=== PATIENT | male | born 1960 | race Caucasian/White ===

== ENCOUNTER 2017-06-30 18:46 | Emergency (ER) | payer BC ==
[~2017-06-30] VITALS: Ht 175.3 cm; Wt 62.3 kg
[~2017-06-30 18:46] MED LIST: HYDR-600 PO
[2017-06-30 18:50] VITALS: TEMP 36.6; Ht 175.3 cm; Wt 62.3 kg
--- NOTE | 2017-06-30 19:34 | EMERGENCY ROOM VISIT NOTE ---
History Report prepared by Marcella: Kendall Thomas Under the Supervision of: Dr. Alex Penny D.O. First contact with patient: 18:53 Chief Complaint: MENTAL HEALTH EVALUATION Stated Complaint: SUICIDAL THOUGHTS History of Present Illness The patient is a 57 year old male who presents to the Emergency Room with complaints of intermittent depressive thoughts for three months. Per , the patient has not been able to take his lunch breaks at work and has continuously lost weight for the past few months. The patient states that his work load at work has become too much to handle and he is no longer interested in doing anything. Per , the patient told her that he was going to take her nerve medication to . The patient denies wanting to harm himself. He denies any fever, nausea, vomiting, or headaches. He has not been admitted or seen for these symptoms in the past. He takes Hydrocodone for chronic back and knee pain. He denies any history of thyroid issues. He notes his father committed suicide last year via a gunshot wound to the head. He normally drinks alcohol every day, though he states that he has not had a drink for two days. He denies any history of blackouts from drinking alcohol. He has never informed his PCP for his depressive thoughts. Source of History: patient, spouse/significant other Onset: three months Position: other (global ) Quality: other (depressive thoughts) Timing: intermittent Associated Symptoms: No fevers, No headache, No nausea, No vomiting Note: He notes weight loss. He denies any self-harm. Review of Systems See HPI for pertinent positives & negatives. A total of 10 systems reviewed and were otherwise negative. Past Medical & Surgical Medical Problems: (1) No Known Active Medical Problems Family History Cancer Social History Smoking Status: Current Every Day Smoker (1 ppd) Alcohol Use: heavy (several every day) Drug Use: none Marital Status: Housing Status: lives with family Occupation Status: employed Current/Historical Medications Scheduled PRN Hydrocodone/Acetaminophen 10MG/325MG ([place] 10MG/325MG), 1 TAB PO Q6 PRN for Pain Allergies Coded Allergies: No Known Allergies (Unverified , NONE, 06/30/17) Physical Exam Vital Signs Date Time Temp Pulse Resp B/P (MAP) Pulse Ox O2 Delivery O2 Flow Rate FiO2 07/01/17 14:18 80 18 117/72 97 Room Air 07/01/17 07:15 55 16 116/68 99 Room Air 06/30/17 18:50 36.6 95 16 125/85 98 Room Air Physical Exam GENERAL: Patient is awake, alert, and in no acute distress. Patient is non- anxious appearing EYES: The conjunctivae are clear. The pupils are round and reactive. EARS, NOSE, MOUTH AND THROAT: The nose is without any evidence of any deformity. Mucous membranes are moist tongue is midline NECK: The neck is nontender and supple. RESPIRATORY: Normal respiratory effort is noted there is no evidence of wheezing rhonchi or rales CARDIOVASCULAR: Regular rate and rhythm noted there no murmurs rubs or gallops normal S1 normal S2 GASTROINTESTINAL: The abdomen is soft. Bowel sounds are present in all quadrants. Abdomen is nontender MUSCULOSKELETAL/EXTREMITIES: There is no evidence of gross deformity full range of motion is noted in the hips and shoulders SKIN: There is no obvious evidence of any rash. There are no petechiae, pallor or cyanosis noted. NEUROLOGIC: Patient is awake alert and oriented x3 strength is symmetric patellar reflexes are 2+ bilaterally PSYCH: Affect was flat. Patient makes poor eye contact. Denies active SI or HI at this time. Medical Decision & Procedures Laboratory Results 06/30/17 19:22 Red Blood Count 4.79, Mean Corpuscular Volume 92.1, Mean Corpuscular Hemoglobin 31.3, Mean Corpuscular Hemoglobin Concent 34.0, Mean Platelet Volume 9.5, Neutrophils (%) (Auto) 71.0, Lymphocytes (%) (Auto) 21.4, Monocytes (%) (Auto) 6.8, Eosinophils (%) (Auto) 0.6, Basophils (%) (Auto) 0.0, Neutrophils # (Auto) 3.75, Lymphocytes # (Auto) 1.13, Monocytes # (Auto) 0.36, Eosinophils # (Auto) 0.03, Basophils # (Auto) 0.00 06/30/17 19:22 Test 06/30/17 19:22 06/30/17 19:58 White Blood Count 5.28 K/uL (4.8-10.8) Red Blood Count 4.79 M/uL (4.7-6.1) Hemoglobin 15.0 g/dL (14.0-18.0) Hematocrit 44.1 % (42-52) Mean Corpuscular Volume 92.1 fL (80-100) Mean Corpuscular Hemoglobin 31.3 pg (25-34) Mean Corpuscular Hemoglobin Concent 34.0 g/dl (32-36) Platelet Count 201 K/uL (130-400) Mean Platelet Volume 9.5 fL (7.4-10.4) Neutrophils (%) (Auto) 71.0 % Lymphocytes (%) (Auto) 21.4 % Monocytes (%) (Auto) 6.8 % Eosinophils (%) (Auto) 0.6 % Basophils (%) (Auto) 0.0 % Neutrophils # (Auto) 3.75 K/uL (1.4-6.5) Lymphocytes # (Auto) 1.13 K/uL (1.2-3.4) Monocytes # (Auto) 0.36 K/uL (0.11-0.59) Eosinophils # (Auto) 0.03 K/uL (0-0.5) Basophils # (Auto) 0.00 K/uL (0-0.2) RDW Standard Deviation 44.7 fL (36.4-46.3) RDW Coefficient of Variation 13.2 % (11.5-14.5) Immature Granulocyte % (Auto) 0.2 % Immature Granulocyte # (Auto) 0.01 K/uL (0.00-0.02) Anion Gap 6.0 mmol/L (3-11) Est Creatinine Clear Calc Drug Dose 76.2 ml/min Estimated GFR () 105.1 Estimated GFR (Non- 90.7 BUN/Creatinine Ratio 21.5 (10-20) Calcium Level 8.8 mg/dl (8.5-10.1) Magnesium Level 2.2 mg/dl (1.8-2.4) Total Bilirubin 0.5 mg/dl (0.2-1) Direct Bilirubin 0.1 mg/dl (0-0.2) Aspartate Amino Transf (AST/SGOT) 20 U/L (15-37) Alanine Aminotransferase (ALT/SGPT) 30 U/L (12-78) Alkaline Phosphatase 43 U/L (45-117) Total Protein 7.1 gm/dl (6.4-8.2) Albumin 3.6 gm/dl (3.4-5.0) Thyroid Stimulating Hormone (TSH) 0.855 uIu/ml (0.300-4.500) Free Thyroxine 0.72 ng/dl (0.80-1.60) Ethyl Alcohol mg/dL < 3.0 mg/dl (0-3) Urine Color DK YELLOW Urine Appearance CLOUDY (CLEAR) Urine pH 5.0 (4.5-7.5) Urine Specific [place] 1.038 (1.000-1.030) Urine Protein 1+ (NEG) Urine Glucose (UA) NEG (NEG) Urine Ketones TRACE (NEG) Urine Occult Blood NEG (NEG) Urine Nitrite NEG (NEG) Urine Bilirubin NEG (NEG) Urine Urobilinogen NEG (NEG) Urine Leukocyte Esterase NEG (NEG) Urine WBC (Auto) >30 /hpf (0-5) Urine RBC (Auto) 0-4 /hpf (0-4) Urine Hyaline Casts (Auto) 10-30 /lpf (0-5) Urine Epithelial Cells (Auto) 0-5 /lpf (0-5) Urine Bacteria (Auto) 1+ (NEG) Urine Mucus PRESENT (NONE PRSENT) Urine Sperm (Auto) PRESENT (NOT PRESENT) Urine Opiates Screen POS (NEG) Urine Methadone, Qualitative NEG (NEG) Urine Barbiturates NEG (NEG) Urine Phencyclidine (PCP) Level NEG (NEG) Ur Amphetamine/Methamphetamine NEG (NEG) MDMA (Ecstasy) Screen NEG (NEG) Urine Benzodiazepines Screen POS (NEG) Urine Cocaine Metabolite NEG (NEG) Urine Marijuana (THC) NEG (NEG) Laboratory results per my review. Medications Administered Medications (Trade) Dose Ordered Sig/Yo Route Start Time Stop Time Status Last Admin Dose Admin Acetaminophen/ Hydrocodone Bitart ([place] 10/325 Tab) 1 tab ONE ONCE PO 07/01/17 07:45 07/01/17 07:46 DC 07/01/17 07:55 1 TAB Hydroxyzine HCl (Vistaril Tab) 50 mg NOW STAT PO 07/01/17 13:50 07/01/17 13:51 DC 07/01/17 14:03 50 MG ED Course 1858: The patient was evaluated in room A6. A complete history and physical examination were performed. The patient is voluntary. 2307: I spoke with KEKE Purdynational stormwater leader Returning Officer. Bed search postponed until morning. The patient is signed out to Dr. Choi. 2308: I reassessed the patient at this time. I discussed the results and treatment plan with the patient. I answered all pertaining questions that he had. He expressed understanding and verbalized agreement. The patient will be further evaluated. Medical Decision Prior records/ancillary studies reviewed. Triage Nursing notes reviewed. The patient's history was concerning for possible psychiatric disturbance. Differential diagnosis: Etiologies such as mood disorder, infection, hypoglycemia, electrolyte abnormalities, cardiac sources, intracerebral event, toxicologic, neurologic, as well as others were entertained. The patient is a 57-year-old male who presented to the emergency department for an evaluation of depression and anxiety. The patient has had worsening symptoms recently. His symptoms appear to be worsening especially because of work. The patient was medically cleared in the emergency department. He was evaluated by the mental health shoe caser. He was felt to be a good candidate for inpatient management. At this time a bed search is underway. The patient was signed out to the evening physician. Please see his note for continuation of care and final disposition. Medication Reconcilliation Current Medication List: was personally reviewed by me Blood Pressure Screening Patient's blood pressure: Normal blood pressure Impression Primary Impression: Depression Additional Impression: Suicidal ideation Scribe Attestation The scribe's documentation has been prepared under my direction and personally reviewed by me in its entirety. I confirm that the note above accurately reflects all work, treatment, procedures, and medical decision making performed by me. Departure Information Dispostion Still a Patient Referrals Jose Antonio Yates M.D. (PCP) Patient Instructions My [facility] Problem Qualifiers Primary Impression: Depression Depression Type: unspecified Qualified Codes: F32.9 - Major depressive disorder, single episode, unspecified
[2017-06-30 19:39] LABS: EOS % 0.6 %; EOS ABS # 0.03 K/uL (0-0.5); HEMATOCRIT 44.1 % (42-52); IG# 0.01 K/uL (0.00-0.02); LYMPH % 21.4 %; LYMPH ABS # 1.13 K/uL (1.2-3.4); MEAN CELL VOLUME 92.1 fL (80-100); MEAN CORPUSCULAR HEMOGLOBIN 31.3 pg (25-34); MEAN PLATELET VOLUME 9.5 fL (7.4-10.4); MONO % 6.8 %; MONO ABS # 0.36 K/uL (0.11-0.59); NEUT ABS # 3.75 K/uL (1.4-6.5); PLATELET COUNT 201 K/uL (130-400); RED CELL DISTRIBUTION WIDTH CV 13.2 % (11.5-14.5); RED CELL DISTRIBUTION WIDTH SD 44.7 fL (36.4-46.3); WHITE BLOOD COUNT 5.28 K/uL (4.8-10.8)
[2017-06-30 19:59] LABS: ALBUMIN 3.6 gm/dl (3.4-5.0); CALCIUM 8.8 mg/dl (8.5-10.1); CREATININE 0.92 mg/dl (0.60-1.40)
[2017-06-30 20:07] LABS: TOTAL PROTEIN 7.1 gm/dl (6.4-8.2)
[2017-06-30] MEDS ORDERED: HYDR-4079 PO (20:08)
--- NOTE | 2017-07-01 02:02 | EMERGENCY ROOM VISIT NOTE ---
ED Visit Note First contact with patient: 00:47 The patient was taken in signout from Dr. Penny at the change of shift. Please see that note for details. The patient was pending bed placement. The patient rested quietly overnight. There were no issues. His case was signed out to Dr. Tafoya at the change of shift.
[2017-07-01] MEDS ORDERED: HYDROCODONE/ACETAMI 10/325 TAB PO ONE (07:45)
[2017-07-01] MEDS ORDERED: hydrOXYzine HCL 25 MG TAB PO STA (13:50)
[2017-07-01 14:18] VITALS: BP 117/72; PULSE 80; O2SAT 97
--- NOTE | 2017-07-01 14:21 | EMERGENCY ROOM VISIT NOTE ---
ED Visit Note First contact with patient: 06:29 Patient was signed out to me medically stable from Dr. Choi. He is resting comfortably in the ER on reevaluation. He was accepted and transferred to [place] for an additional psychiatric workup.
== END 2017-07-01 14:36 ==
LOC: C.EDB 18:47 → C.EDA 07-01 14:36
DX: F32.9 Major depressive disorder, single episode, unspecified (principal); R45.851 Suicidal ideations; M54.9 Dorsalgia, unspecified; M25.569 Pain in unspecified knee; G89.29 Other chronic pain; F17.210 Nicotine dependence, cigarettes, uncomplicated; F10.10 Alcohol abuse, uncomplicated

== ENCOUNTER 2019-11-05 19:21 | Inpatient (IN) ==
[2019-11-05 19:58] LABS: Appearance Urine Clear (Clear); Bilirubin Urine Negative (Negative); Blood Urine Negative (Negative); Color Urine Yellow; Glucose Urine UA Negative (Negative); Ketones Urine Negative (Negative); Leukocyte Esterase Urine Negative (Negative); Nitrite Urine Negative (Negative); Protein Urine Negative (Negative); Specific Gravity Urine 1.014 (1.000-1.030); Urobilinogen Urine Negative (Negative)
--- NOTE | 2019-11-05 20:05 | Emergency Department Note ---
History of Present Illness General Chief complaint: Altered Mental Status Stated complaint: AMS Time Seen by Provider: 11/05/19 19:40 History of Present Illness Provider complaint: Altered mental status 59-year-old male presents emergency department for altered mental status. Patient was brought in by EMS because he was found in his car "staring off into space". Patient states he was not staring off into space in his car, he states he was lying in the middle of the road. Patient denies any suicidal or homicidal ideation. He states he was lying in the middle of the road "for the hell of it" he denies any pain or problems at this time. No fevers. No loss of taste or smell. Home Medications Home Medications Medication Instructions Recorded Confirmed Type aripiprazole 15 mg PO DAILY 10/10/19 11/05/19 History diphenhydramine HCl 50 mg DAILY PRN 10/10/19 11/05/19 History duloxetine 60 mg PO DAILY 10/10/19 11/05/19 History lamotrigine 100 mg PO DAILY 10/10/19 11/05/19 History Allergies Allergy/AdvReac Type Severity Reaction Status Date / Time No Known Allergies Allergy NONE Verified 11/05/19 20:20 Past Med/Surg History Medical History Arthritis (Chronic) Depression (Inactive) Surgical History H/O knee surgery Family History Other Family history non-contributory Social History Preferred Language: Montenegrin marital status: Current Living Situation: Spouse current occupational status: employed Feels Safe at Home: Yes Smoking Status: Former smoker Tobacco Type: cigarettes ; Review of Systems A total of 10 systems reviewed and were otherwise negative Physical Exam Vital Signs Vital Signs - 24 hr 11/05/19 19:28 11/05/19 19:30 11/05/19 20:28 Temperature 36.9 C Temperature Source Oral Pulse Rate 56 L 59 L 61 Pulse Rate from SpO2 Sensor 58 L 61 Respiratory Rate 19 18 20 Respiratory Effort / Characteristics Non-Labored Spontaneous Respiratory Depth Normal Blood Pressure 126/90 126/89 147/85 H Blood Pressure Mean 102 102 97 Pulse Oximetry 98 98 100 Oxygen Delivery Method Room Air Sepsis Recent Fever Within 48 Hours No Sepsis Action Taken by Nursing No Action Required 11/05/19 21:01 11/05/19 21:30 Temperature Temperature Source Pulse Rate 51 L 52 L Pulse Rate from SpO2 Sensor 51 L 53 L Respiratory Rate 15 19 Respiratory Effort / Characteristics Respiratory Depth Blood Pressure 112/71 110/70 Blood Pressure Mean 80 79 Pulse Oximetry 96 97 Oxygen Delivery Method Sepsis Recent Fever Within 48 Hours Sepsis Action Taken by Nursing Physical Exam GENERAL: He is oriented to person, place, and time. He appears well-developed and well-nourished. He does not appear distressed. HENT: Exam performed. - Head: Normocephalic and atraumatic. - Right Ear: External ear normal. No mastoid tenderness. - Left Ear: External ear normal. No mastoid tenderness. - Mouth/Throat: The oropharynx is clear and moist. No trismus in the jaw. No dental abscesses or uvula swelling. No oropharyngeal exudate or tonsillar abscesses. EYES: Conjunctivae and EOM are normal. Pupils are equal, round, and reactive to light. Right eye exhibits no discharge. Left eye exhibits no discharge. No scleral icterus. NECK: Normal range of motion. Neck supple. No JVD present. No spinous process tenderness present. No carotid bruit present. No rigidity. No tracheal deviation and normal range of motion present. No Brudzinski's sign and no Kernig's sign noted. CV: Normal rate, regular rhythm, normal heart sounds and intact distal pulses. There is no peripheral edema. Palpable radial pulses bue. PULM/CHEST: Effort normal and breath sounds normal. No respiratory distress. No stridor. He has no wheezes. He has no rales. - Chest Wall: He exhibits no tenderness. ABD: The abdomen is soft. Bowel sounds are normal. He has no distension. No mass is present. There is no tenderness. There is no rebound, no guarding, no Ramírez's sign and no tenderness at McBurney's point. Rovsig negative. MUSC/SKEL: Normal range of motion. There is no peripheral edema, tenderness or deformity. LYMPH: No cervical adenopathy. NEURO: He is alert and oriented to person, place, and time. He has normal strength. No cranial nerve deficit or sensory deficit. Coordination and gait normal. GCS eye subscore is 4. GCS verbal subscore is 5. GCS motor subscore is 6. Cerebellar tests wnl. SKIN: Skin is warm and dry. He is not diaphoretic. PSYCH: Bizarre affect. Tardive dyskinesia. Denies suicidal or homicidal ideation. Course Course 1939: The patient was evaluated in room B2. A complete history and physical exam was performed. 2114: Vital signs stable. Patient medically cleared. Patient will be evaluated psychiatric clinical educator. Patient placed in observation at this time. Administered Medications Discontinued Medications Lorazepam (Ativan) 1 mg PO NOW STA Stop: 11/05/19 22:49 Last Admin: 11/05/19 23:03 Dose: 1 mg Documented by: [id number] Medical Decision Making Laboratory Data Result diagrams: 11/05/19 20:04 11/05/19 20:04 Lab Results 11/05/19 11/05/19 11/05/19 Range/Units 19:29 19:45 19:45 WBC (4.8-10.8) K/uL RBC (4.7-6.1) M/uL Hgb (14.0-18.0) g/dL Hct (42-52) % MCV (80-100) fL MCH (25-34) pg MCHC (32-36) g/dL RDW Std Deviation (36.4-46.3) fL RDW Coeff of Bhavesh (11.5-14.5) % Plt Count (130-400) K/uL MPV (7.4-10.4) fL Immature Gran % (Auto) % Neut % (Auto) % Lymph % (Auto) % Stone % (Auto) % Eos % (Auto) % Baso % (Auto) % Neut # (Auto) (1.4-6.5) K/uL Lymph # (Auto) (1.2-3.4) K/uL Stone # (Auto) (0.11-0.59) K/uL Eos # (Auto) (0-0.5) K/uL Baso # (Auto) (0-0.2) K/uL Immature Gran # (Auto) (0.00-0.02) K/uL Carboxyhemoglobin % THgb Sodium (136-145) mmol/L Potassium (3.5-5.1) mmol/L Chloride (98-107) mmol/L Carbon Dioxide (21-32) mmol/L Anion Gap (3-11) BUN (7-18) mg/dl Creatinine (0.6-1.4) mg/dl Est Cr Clr Drug Dosing ml/min Est GFR ( Amer) Est GFR (Non-Af Amer) BUN/Creatinine Ratio (10-20) Glucose (70-99) mg/dl POC Glucose 101 H (70-99) mg/dl Calcium (8.5-10.1) mg/dl Total Bilirubin (0.2-1) mg/dl AST (15-37) U/L ALT (12-78) U/L Alkaline Phosphatase (45-117) U/L Total Protein (6.4-8.2) gm/dl Albumin (3.4-5.0) gm/dl Globulin (2.5-4.0) gm/dl Albumin/Globulin Ratio (0.9-2) TSH (0.300-4.500) uIu/ml Urine Color Yellow Urine Appearance Clear (Clear) Urine pH 5.0 (4.5-7.5) Ur Specific [place] 1.014 (1.000-1.030) Urine Protein Negative (Negative) Urine Glucose (UA) Negative (Negative) Urine Ketones Negative (Negative) Urine Blood Negative (Negative) Urine Nitrite Negative (Negative) Urine Bilirubin Negative (Negative) Urine Urobilinogen Negative (Negative) Ur Leukocyte Esterase Negative (Negative) Salicylates (2.8-20) mg/dl Urine Opiates Screen Neg (Neg) Ur Methadone, Qual Neg (Neg) Acetaminophen (10-30) ug/ml Urine Barbiturates Neg (Neg) Ur Phencyclidine (PCP) Neg (Neg) U Amphetamin/Meth Scrn Neg (Neg) MDMA (Ecstasy) Screen Neg (Neg) U Benzodiazepines Scrn Neg (Neg) Ur Cocaine Metabolite Neg (Neg) U Marijuana (THC) Screen Neg (Neg) Ethyl Alcohol mg/dL (0-3) mg/dl 11/05/19 11/05/19 11/05/19 Range/Units 20:04 20:04 20:04 WBC 6.53 (4.8-10.8) K/uL RBC 5.16 (4.7-6.1) M/uL Hgb 16.0 (14.0-18.0) g/dL Hct 45.0 (42-52) % MCV 87.2 (80-100) fL MCH 31.0 (25-34) pg MCHC 35.6 (32-36) g/dL RDW Std Deviation 40.8 (36.4-46.3) fL RDW Coeff of Bhavesh 12.8 (11.5-14.5) % Plt Count 191 (130-400) K/uL MPV 9.8 (7.4-10.4) fL Immature Gran % (Auto) 0.2 % Neut % (Auto) 58.5 % Lymph % (Auto) 34.2 % Stone % (Auto) 6.0 % Eos % (Auto) 1.1 % Baso % (Auto) 0.0 % Neut # (Auto) 3.83 (1.4-6.5) K/uL Lymph # (Auto) 2.23 (1.2-3.4) K/uL Stone # (Auto) 0.39 (0.11-0.59) K/uL Eos # (Auto) 0.07 (0-0.5) K/uL Baso # (Auto) 0.00 (0-0.2) K/uL Immature Gran # (Auto) 0.01 (0.00-0.02) K/uL Carboxyhemoglobin % THgb Sodium 140 (136-145) mmol/L Potassium 3.7 (3.5-5.1) mmol/L Chloride 105 (98-107) mmol/L Carbon Dioxide 31 (21-32) mmol/L Anion Gap 4.0 (3-11) BUN 8 (7-18) mg/dl Creatinine 0.95 (0.6-1.4) mg/dl Est Cr Clr Drug Dosing 81.7 ml/min Est GFR ( Amer) 99.7 Est GFR (Non-Af Amer) 86.1 BUN/Creatinine Ratio 8.0 L (10-20) Glucose 86 (70-99) mg/dl POC Glucose (70-99) mg/dl Calcium 9.4 (8.5-10.1) mg/dl Total Bilirubin 0.6 (0.2-1) mg/dl AST 14 L (15-37) U/L ALT 21 (12-78) U/L Alkaline Phosphatase 59 (45-117) U/L Total Protein 7.6 (6.4-8.2) gm/dl Albumin 3.9 (3.4-5.0) gm/dl Globulin 3.7 (2.5-4.0) gm/dl Albumin/Globulin Ratio 1.1 (0.9-2) TSH 1.040 (0.300-4.500) uIu/ml Urine Color Urine Appearance (Clear) Urine pH (4.5-7.5) Ur Specific [place] (1.000-1.030) Urine Protein (Negative) Urine Glucose (UA) (Negative) Urine Ketones (Negative) Urine Blood (Negative) Urine Nitrite (Negative) Urine Bilirubin (Negative) Urine Urobilinogen (Negative) Ur Leukocyte Esterase (Negative) Salicylates < 1.7 L (2.8-20) mg/dl Urine Opiates Screen (Neg) Ur Methadone, Qual (Neg) Acetaminophen < 2 L (10-30) ug/ml Urine Barbiturates (Neg) Ur Phencyclidine (PCP) (Neg) U Amphetamin/Meth Scrn (Neg) MDMA (Ecstasy) Screen (Neg) U Benzodiazepines Scrn (Neg) Ur Cocaine Metabolite (Neg) U Marijuana (THC) Screen (Neg) Ethyl Alcohol mg/dL (0-3) mg/dl 11/05/19 11/05/19 Range/Units 20:04 20:04 WBC (4.8-10.8) K/uL RBC (4.7-6.1) M/uL Hgb (14.0-18.0) g/dL Hct (42-52) % MCV (80-100) fL MCH (25-34) pg MCHC (32-36) g/dL RDW Std Deviation (36.4-46.3) fL RDW Coeff of Bhavesh (11.5-14.5) % Plt Count (130-400) K/uL MPV (7.4-10.4) fL Immature Gran % (Auto) % Neut % (Auto) % Lymph % (Auto) % Stone % (Auto) % Eos % (Auto) % Baso % (Auto) % Neut # (Auto) (1.4-6.5) K/uL Lymph # (Auto) (1.2-3.4) K/uL Stone # (Auto) (0.11-0.59) K/uL Eos # (Auto) (0-0.5) K/uL Baso # (Auto) (0-0.2) K/uL Immature Gran # (Auto) (0.00-0.02) K/uL Carboxyhemoglobin 0.0 % THgb Sodium (136-145) mmol/L Potassium (3.5-5.1) mmol/L Chloride (98-107) mmol/L Carbon Dioxide (21-32) mmol/L Anion Gap (3-11) BUN (7-18) mg/dl Creatinine (0.6-1.4) mg/dl Est Cr Clr Drug Dosing ml/min Est GFR ( Amer) Est GFR (Non-Af Amer) BUN/Creatinine Ratio (10-20) Glucose (70-99) mg/dl POC Glucose (70-99) mg/dl Calcium (8.5-10.1) mg/dl Total Bilirubin (0.2-1) mg/dl AST (15-37) U/L ALT (12-78) U/L Alkaline Phosphatase (45-117) U/L Total Protein (6.4-8.2) gm/dl Albumin (3.4-5.0) gm/dl Globulin (2.5-4.0) gm/dl Albumin/Globulin Ratio (0.9-2) TSH (0.300-4.500) uIu/ml Urine Color Urine Appearance (Clear) Urine pH (4.5-7.5) Ur Specific [place] (1.000-1.030) Urine Protein (Negative) Urine Glucose (UA) (Negative) Urine Ketones (Negative) Urine Blood (Negative) Urine Nitrite (Negative) Urine Bilirubin (Negative) Urine Urobilinogen (Negative) Ur Leukocyte Esterase (Negative) Salicylates (2.8-20) mg/dl Urine Opiates Screen (Neg) Ur Methadone, Qual (Neg) Acetaminophen (10-30) ug/ml Urine Barbiturates (Neg) Ur Phencyclidine (PCP) (Neg) U Amphetamin/Meth Scrn (Neg) MDMA (Ecstasy) Screen (Neg) U Benzodiazepines Scrn (Neg) Ur Cocaine Metabolite (Neg) U Marijuana (THC) Screen (Neg) Ethyl Alcohol mg/dL < 3.0 (0-3) mg/dl Imaging Data Radiologist's Impression: CT head/brain wo con CT DOSE: 537.48 mGy.cm HISTORY: Mental status change ams TECHNIQUE: Multiaxial CT images of the head were performed without the use of intravenous contrast. A dose lowering technique was utilized adhering to the principles of ALARA. Comparison: None. Findings: The paranasal sinuses and mastoid air cells are clear. The calvarium and skull base are intact. The ventricles and sulci are within normal limits. There is no mass, hematoma, midline shift, or acute infarct. Impression: No acute intracranial abnormality. ACT 112: Negative or not required by law. The above report was generated using voice recognition software. It may contain grammatical, syntax or spelling errors. Electronically signed by: Tim Arnold M.D. 11/05/2019 8:33 PM Dictated: 11/05/192031 Transcribed: 11/05/192031 [facility] Narrative Observation note Indication: Psych eval/placement Patient, with depression was first seen at 1939 and the observation time began at 2114 and was necessary in order to have psych evaluation completed . Upon re-evaluation, 2 hours and 7 minutes of observation revealed that the patient should be admitted to inpatient psychiatry. Disposition date and time November 05, [id number]. Impression & Plan Depression Discharge Plan Visit Data Chief Complaint: Altered Mental Status Stated Complaint: AMS ED Provider: Santana Jarvis Discharge Problem: Depression Patient Disposition: Admitted As Inpatient Forms Stand Alone Forms: [email or web address] [email or web address] Prescriptions Prescriptions: No Action diphenhydramine HCl 50 mg capsule 50 mg DAILY PRN (Reason: Sleep) RF: 0 lamotrigine 100 mg tablet 100 mg PO DAILY RF: 0 aripiprazole 15 mg tablet 15 mg PO DAILY RF: 0 duloxetine 60 mg capsule,delayed release(DR/EC) 60 mg PO DAILY RF: 0 Referrals Referrals: Reid Bolden PA-C [Primary Care Provider] - Discharge Problem: Depression Qualifiers: Depression Type: major depressive disorder Major depression recurrence: single episode Active/Remission status: currently active Major depression episode severity: severe Psychotic features: with psychotic features Qualified Code(s): F32.3 - Major depressive disorder, single episode, severe with psychotic features
[2019-11-05 20:22] LABS: Amphetamines+Metham, Urine Neg (Neg); Barbiturates, Urine Neg (Neg); Benzodiazepine, Urine Neg (Neg); Cocaine, Urine Neg (Neg); MDMA (Ecstacy), Urine Neg (Neg); Methadone, Urine Neg (Neg); Opiate, Urine Neg (Neg); Phencyclidine, Urine Neg (Neg)
[2019-11-05 20:25] LABS: Eosinophils # (auto) 0.07 K/uL (0-0.5); Eosinophils % (auto) 1.1 %; Immature Granulocytes # (auto) 0.01 K/uL (0.00-0.02); Immature Granulocytes % (auto) 0.2 %; Lymphocytes # (auto) 2.23 K/uL (1.2-3.4); Lymphocytes % (auto) 34.2 %; Mean Corpuscular Hgb Conc 35.6 g/dL (32-36); Mean Corpuscular Volume 87.2 fL (80-100); Mean Platelet Volume 9.8 fL (7.4-10.4); Monocytes # (auto) 0.39 K/uL (0.11-0.59); Neutrophils # (auto) 3.83 K/uL (1.4-6.5); Neutrophils % (auto) 58.5 %; Platelet Count 191 K/uL (130-400); RDW Coefficient of Variation 12.8 % (11.5-14.5); RDW Standard Deviation 40.8 fL (36.4-46.3); Red Blood Count 5.16 M/uL (4.7-6.1); White Blood Count 6.53 K/uL (4.8-10.8)
--- NOTE | 2019-11-05 20:34 | CT Scan Report ---
CT head/brain wo con CT DOSE: 537.48 mGy.cm HISTORY: Mental status change ams TECHNIQUE: Multiaxial CT images of the head were performed without the use of intravenous contrast. A dose lowering technique was utilized adhering to the principles of ALARA. Comparison: None. Findings: The paranasal sinuses and mastoid air cells are clear. The calvarium and skull base are int act. The ventricles and sulci are within normal limits. There is no mass, hematoma, midline shift, or acute infarct. Impression: No acute intracranial abnormality. ACT 112: Negative or not required by law. The above report was generated using voice recognition software. It may contain grammatical, syntax or spelling errors. Electronically signed by: Tim Arnold M.D. 11/05/2019 8:33 PM
[2019-11-05 20:53] LABS: Albumin Level 3.9 gm/dl (3.4-5.0); Calcium 9.4 mg/dl (8.5-10.1); Creatinine Clr Calc Pharmacy 81.7 ml/min; Est GFR (African American) 99.7; Est GFR (Non-African American) 86.1; Potassium 3.7 mmol/L (3.5-5.1)
[2019-11-05 20:55] LABS: Acetaminophen < 2 ug/ml (10-30); Salicylate < 1.7 mg/dl (2.8-20)
[2019-11-05 21:04] LABS: Albumin Globulin Ratio 1.1 (0.9-2); Bilirubin,Total 0.6 mg/dl (0.2-1); Globulin 3.7 gm/dl (2.5-4.0); Thyroid Stimulating Hormone 1.04 uIu/ml (0.300-4.500); Total Protein 7.6 gm/dl (6.4-8.2)
[2019-11-05] MEDS ORDERED: LORazepam 1 MG TAB PO STA (22:48)
[2019-11-05] MEDS ORDERED: BISMUTH SUBSALICYLATE PER ML OMNICELL CHARGE PO PRN (23:49)
[2019-11-05] MEDS ORDERED: SODIUM CHLORIDE 0.65% NA SOLN 45 ML (OCEAN) PRN (23:49)
[2019-11-05] MEDS ORDERED: ACETAMINOPHEN 325 MG TAB PO PRN (23:49)
[2019-11-05] MEDS ORDERED: ALUMINUM/MAGNESIUM SUSP 30 ML UDC PO PRN (23:49)
[2019-11-05] MEDS ORDERED: MAGNESIUM HYDROXIDE SUSP 30 ML UDC PO PRN (23:49)
[2019-11-06] MEDS: OLANZAPINE ZYDIS 5 MG ORALLY DIS. TAB PO SCH (13:09)
--- NOTE | 2019-11-06 13:33 | History & Physical ---
Date of Service November 06, 2019 Impression / Recommendations Impression At this point, the patient remained somewhat of a mystery. He seems paranoid and often is observed creeping suspiciously around the unit and staring with a fixed gaze into the nursing station --and then essentially running away if someone catches his eye. His affect is flat, and at times he appears to be almost catatonic. The patient does verbally acknowledge that his mood is depressedalthough sometimes he responds to questions about mood by saying "I am ." The admission was precipitated by the fact that the patient was observed by his neighbors laying in the street in front of his home. Records from previous emergency room visits over the past several years indicate that the patient has a history of recurrent depression and recurrent suicidal ideation. He also has a history in 2018 or 2018 of taking a deliberate overdose of medication. Adherence with treatment seems to clearly be an issue, both in the past and during the period of time leading up to the admission. The patient is demonstrating psychotic features. He clearly appears to be responding to internal stimuli as evidenced by his speaking as if to an unseen person in an empty room. He also periodically insists that he is "already ," and when asked if he means that he feels " inside," he responds "no. I am already . Bury me." (1) Depression: 11/06/19 -The patient has been admitted to the [facility] behavioral health unit and placed on suicide precautions with close observation. He is also been placed in a medically necessary private room and has been referred for individual, group, and activity therapies and is being encouraged to attend and participate. We will also work to gather additional information from his and will plan to hold a telephonic family meeting if the patient agrees. -Patient's outpatient medications reportedly include lamotrigine 100 mg a day, duloxetine 60 mg a day, hydroxyzine 50 mg once a day "as needed," and aripiprazole 15 mg daily. In the past, he has taken venlafaxine. There is a long history of nonadherence, and it is not clear when the patient took any of these medications. Currently, we do not know when the patient took lamotrigine most recently and we are reluctant to prescribe lamotrigine at 100 mg a day. Instead, we will again lamotrigine at 25 mg a day and titrate as indicated. We will be placed on duloxetine 40 mg a day. (This is lower than his outpatient dose, but, again, he evidently has not been taking it.) As needed hydroxyzine has been ordered. We have decided to hold aripiprazole for the time being in favor of Zyprexa Zydis starting at 5 mg and titrating as indicated. Active/Remission status: currently active Depression Type: major depressive disorder Major depression episode severity: severe Major depression recurrence: single episode Psychotic features: with psychotic features Qualified Code(s): F32.3 - Major depressive disorder, single episode, severe with psychotic features Present on Admission?: Yes (2) Threatening suicide: 11/06/19 -The patient was observed laying in the road in front of his house last evening and he continues to endorse suicidal ideation. -Patient will be closely monitored on suicide precautions Present on Admission?: Yes Inventory Assets Strengths: Supportive family. Positive work history in the past. The record indicates that there has been a favorable response to treatment previously. Needs: Improved ability to cooperate with treatment. Adherence with psychiatric medications. Resolution of psychosis. Stabilization of mood. Risk Factors Assessment Serious psychiatric illness. Psychotic features. Possible access to guns. History of at least 1 suicide attempt. Family history of completed suicide (patient's elderly father 3 or 4 years ago.) Male: Yes : Yes Do You Have Access To A Gun?: Yes (The patient denies that there are guns in his home. However, the old records indicate that at least in the past there were guns. This will need to be investigated further.) Health Problems: Yes Mental Health Diagnoses: Yes Substance Use Disorders: No Previous Attempt: Yes (Details of the previous attempt are not known at this time., Other than the attempt reportedly occurred within the past year or 2 and consisted of his swallowing a toxic overdose.) Family History of Suicide: Yes Previous Psychiatric Hospitalization: Yes Hopelessness: Yes Smoker: Yes Protective Factors Assessment Judaism Beliefs: No : Yes Responsible for Young Children: No Employed: No (lost job a year ago) Stable Relationships: Yes Supportive Family: Yes Good Rapport with Provider: No Absence of Any Risk Factors Above: No Psychiatric History Identifying Data FIORDALIZA NAZARIO is a 59-year-old M who currently lives in [place], [place] with his . He has a history of recurrent episodes of major depression. He was admitted on 11/05/19 23:05 on a 201 voluntary agreement after his neighbors observed him laying down in the middle of the road in front of his house. Chief Complaint "I'm . Do my farts stink?". History of Present Illness The patient is a 59-year-old man who was admitted last night through the emergency department after his neighbors observed that he was laying in the roadway of the street in front of his home, and the police were contacted. The patient reportedly has a history of recurrent major depressive episodes, as well as a history of several previous psychiatric hospitalizations. He has uncooperative and a poor/unreliable historian. His response to most questions are simply in the negative. When a review of systems was attempted, the patient answered in the negative as his response for every system reviewed. When asked if he had ever had any surgeries (within the context that it is known that he has had knee surgery) the patient said "no." When it was pointed out to him that his record shows that he had had knee surgery, he replied "no." He also often responds by saying "I am ." At one point he did allow that he was feeling depressed and acknowledges that he was thinking of committing suicide. When ask to reconcile his assertion that he is already with his assertion that he wants to commit suicide the patient stared straight ahead and said "I am ." The patient was asked how he might commit suicide, and he said "there are lots of ways." When he was asked if he was thinking of any one particular way, he said "there are lots of ways." When asked if he has ever taken any psychiatric medications he replied, "no." When several of his prescribed medications were mentioned to him he replied, "why should I take medicines? There is nothing wrong with me." The patient is oriented to person, place, time, but not necessarily to situation. He had initially refused to come into the examination room in order to be assessed, and when the undersigned went to speak with him in his bedroom he immediately passed gas and said "do my farts stink?" He was also observed engaging in disorganized behavior. For example, he picked up a pair of dice and began throwing them in the air and batting at them. He was also observed on several occasions talking in a somewhat animated fashion to an empty room or an empty chair in a manner that suggested that he was responding to internal stimuli. And at one point he spontaneously shouted out the word "Help!" But then denied that anything was wrong or that he was in any distress. The record indicates that the patient has a history of nonadherence with psychiatric medications. It is not clear at this point how far back the patient's depression extends him. His elderly father committed suicide by gunshot wound in 2016 and this may have been a precipitating event. His medication regimen has included mood stabilizers, but the record does not indicate a history of renata or hypomaniadespite a series of presentations in the emergency department for evaluation of depression and suicidal thoughts over the course of the last several years. The patient is reporting that he does not use alcohol. Old records indicate that at least several years ago he was consuming alcohol on a daily basis, but never to the point of intoxication. Past Psychiatric History Previous Psych History: The patient was not able to cooperate with a past psychiatric history. He initially said that he had never had any mental health treatment and never been hospitalized. Later, he said that he had been in an unspecified psychiatric unit in [place]. The record indicates that he had been psychiatrically hospitalized in [place] and [place] in the fairly recent past. Current Psychiatric Diagnosis: According to medical record, MDD and [facility] Outpatient Services: The patient reports that he is not followed by anyone in an outpatient basis. However, he has been prescribed psychiatric medications (which he reportedly has not been taking). Previous Psych Admissions: The patient's history of psychiatric hospitalizations is unclear at this time. After initially telling us that he had no history of psychiatric hospitalizations, he later said that he had been psychiatrically hospitalized in "[place]," but provided no additional information. [facility] emergency department records indicate that in the past the patient has been sent to [facility] and the [facility]. Those admissions apparently were related to depression and suicidal thoughts. Do You Have Access To A Gun?: Yes (The patient denies that there are guns in his home. However, the old records indicate that at least in the past there were guns. This will need to be investigated further.) Describe Attempts in the Past: overdosed on pills in 2019 Past Medication Trials: The record indicates that the patient has been tried on several psychiatric medications. These included lamotrigine, duloxetine, venlafaxine, hydroxyzine, and aripiprazole. The patient, himself, reports that he has never taken any medications, psychiatric or otherwise. Past Head Trauma/Neuro History The patient was uncooperative with a review of systems on the psychiatric unit. Allergies Allergy/AdvReac Type Severity Reaction Status Date / Time No Known Allergies Allergy NONE Verified 11/05/19 20:20 Home Medications Home Medications Medication Instructions Recorded Confirmed Type aripiprazole 15 mg PO DAILY 10/10/19 11/05/19 History diphenhydramine HCl 50 mg DAILY PRN 10/10/19 11/05/19 History duloxetine 60 mg PO DAILY 10/10/19 11/05/19 History lamotrigine 100 mg PO DAILY 10/10/19 11/05/19 History Family History Family History of: Depression, Anxiety, Suicide Attempts and Suicide Completion Family Mental Health History Comment: Father completed suicide by self inflicted gun shot 2 years ago. Alcohol History Hx of Alcohol Use Over the Past 12 Months: No AUDIT Total Score: 0 It should be noted that the patient is not a reliable historian. Smoking Use Have You Smoked or Used Tobacco Products in the Last 30 Days: Yes tobacco type: cigarettes Smoking Status: Current every day smoker Smoking packs per day: 0.25 Substance History Hx of Prescription Med Misuse Over the Past 12 Months: No Hx of Over the Counter Med Misuse Over the Past 12 Months: No Hx of Inhalent Misuse Over the Past 12 Months: No Hx of Organic Substance Use Over the Past 12 Months: Yes (Occassional marijuana use) Hx of Illegal Substances/Street Drug Use Over Past 12 Months: No Problems as a Result of Past Substance Use: None Identified Personal History Living Arrangements: Home Highest Grade Completed: Did Not Graduate High School Highest Grade Completed Comment: Patient now reports that he dropped out of high school in the 11th grade. He did not offer an explanation when asked. 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 He does not clear if he continues to be employed, but the patient tells us that he is not.) Marital Status: Number Of Children: "4 or 5" Beliefs That Will Affect Care: None Current Legal Problems: No (The patient is an unreliable historian. He reports that he has no current or past legal problems.) Hx Legal Problems: No Hx Traumatic Life Events: Yes (The suicide of his father by gunshot wound.) Patient History Medical History Arthritis (Chronic) Depression (Inactive) Surgical History H/O knee surgery Family History Other Family history non-contributory Social History Preferred Language: Fijian Communication Ability: Effective Beliefs That Will Affect Care: None marital status: Current Living Situation: Spouse current occupational status: employed Feels Safe at Home: Yes Smoking Status: Current every day smoker Tobacco Type: cigarettes ; Review of Systems Review of Systems: All systems reviewed & are unremarkable except as noted in HPI & below An attempt was made to complete a review of systems of at least 10 systems. The patient immediately responded in the negative to each system queried. The record notes that he has a history of arthritis and knee surgery. Also, his serum glucose levels appear to be somewhat elevated. The somatic history, review of systems, and physical examination completed by Tim Arnold MD has been reviewed and is excepted for purposes of medical clearance to the behavioral health unit. Physical Exam Psychiatric: Orientation: oriented x 3 (The patient also is able to correctly name the president celebrity acquistion, and spontaneously adds, "not for much longer, I hope.") and oriented to person Apperance: + disheveled Eye Contact: + poor eye contact The patient stares straight ahead or frequently turns his back on the examiner. The patient would not cooperate with an aims test. However, he has abnormal involuntary movements of his oral musculature. Apart from shouting "help!" The patient does not speak spontaneously. He often answers questions with one-word answers, and generally these answers are either "no," or "I am ." Affect: + flat affect Mood: + depressed mood Thought Process: + thought blocking and + concrete thought process Thought Content: + delusions As above, the patient periodically insists that he is "" or "already ." He also has been observed crouching down and peering surreptitiously into the nursing station in a manner that suggests that he is very suspicious. The patient reports that he is suicidal, but does not identify a specific plan. When asked why he was laying down in the middle of a road he said "what is the use?" Homicidal Thoughts: denies homicidal thoughts Hallucinations: + auditory hallucinations (The patient answers in the negative when asked about auditory hallucinations. However, he has been observed speaking in an animated fashion as if to unseen persons in an empty room) Cognition: language grossly intact The patient was unable to cooperate with any formal testing of his memory. However, when invited to name the mountains that he could see out of his bedroom window he pointed correctly to [place] and correctly named it. Estimated Intelligence: + below average estimated intelligence Insight: + severely impaired insight Judgement: + severely impaired judgement Vital Signs (Past 24 Hours): Last Vital Signs Temp 36.3 C L 11/06/19 06:36 Pulse 71 11/06/19 06:36 Resp 18 11/06/19 06:36 BP 111/79 11/06/19 06:36 Pulse Ox 97 11/05/19 23:34 Results & Data ([facility]) Laboratory Results Laboratory Results - last 24 hr 11/05/19 11/05/19 11/05/19 19:29 19:45 19:45 WBC RBC Hgb Hct MCV MCH MCHC RDW Std Deviation RDW Coeff of Bhavesh Plt Count MPV Immature Gran % (Auto) Neut % (Auto) Lymph % (Auto) Zavala % (Auto) Eos % (Auto) Baso % (Auto) Neut # (Auto) Lymph # (Auto) Zavala # (Auto) Eos # (Auto) Baso # (Auto) Immature Gran # (Auto) Carboxyhemoglobin Sodium Potassium Chloride Carbon Dioxide Anion Gap BUN Creatinine Est Cr Clr Drug Dosing Est GFR ( Amer) Est GFR (Non-Af Amer) BUN/Creatinine Ratio Glucose POC Glucose 101 H Calcium Total Bilirubin AST ALT Alkaline Phosphatase Total Protein Albumin Globulin Albumin/Globulin Ratio TSH Urine Color Yellow Urine Appearance Clear Urine pH 5.0 Ur Specific Beul[place] 1.014 Urine Protein Negative Urine Glucose (UA) Negative Urine Ketones Negative Urine Blood Negative Urine Nitrite Negative Urine Bilirubin Negative Urine Urobilinogen Negative Ur Leukocyte Esterase Negative Salicylates Urine Opiates Screen Neg Ur Methadone, Qual Neg Acetaminophen Urine Barbiturates Neg Ur Phencyclidine (PCP) Neg U Amphetamin/Meth Scrn Neg MDMA (Ecstasy) Screen Neg U Benzodiazepines Scrn Neg Ur Cocaine Metabolite Neg U Marijuana (THC) Screen Neg Ethyl Alcohol mg/dL 11/05/19 11/05/19 11/05/19 20:04 20:04 20:04 WBC 6.53 RBC 5.16 Hgb 16.0 Hct 45.0 MCV 87.2 MCH 31.0 MCHC 35.6 RDW Std Deviation 40.8 RDW Coeff of Bhavesh 12.8 Plt Count 191 MPV 9.8 Immature Gran % (Auto) 0.2 Neut % (Auto) 58.5 Lymph % (Auto) 34.2 Zavala % (Auto) 6.0 Eos % (Auto) 1.1 Baso % (Auto) 0.0 Neut # (Auto) 3.83 Lymph # (Auto) 2.23 Zavala # (Auto) 0.39 Eos # (Auto) 0.07 Baso # (Auto) 0.00 Immature Gran # (Auto) 0.01 Carboxyhemoglobin Sodium 140 Potassium 3.7 Chloride 105 Carbon Dioxide 31 Anion Gap 4.0 BUN 8 Creatinine 0.95 Est Cr Clr Drug Dosing 81.7 Est GFR ( Amer) 99.7 Est GFR (Non-Af Amer) 86.1 BUN/Creatinine Ratio 8.0 L Glucose 86 POC Glucose Calcium 9.4 Total Bilirubin 0.6 AST 14 L ALT 21 Alkaline Phosphatase 59 Total Protein 7.6 Albumin 3.9 Globulin 3.7 Albumin/Globulin Ratio 1.1 TSH 1.040 Urine Color Urine Appearance Urine pH Ur Specific [place] Urine Protein Urine Glucose (UA) Urine Ketones Urine Blood Urine Nitrite Urine Bilirubin Urine Urobilinogen Ur Leukocyte Esterase Salicylates < 1.7 L Urine Opiates Screen Ur Methadone, Qual Acetaminophen < 2 L Urine Barbiturates Ur Phencyclidine (PCP) U Amphetamin/Meth Scrn MDMA (Ecstasy) Screen U Benzodiazepines Scrn Ur Cocaine Metabolite U Marijuana (THC) Screen Ethyl Alcohol mg/dL 11/05/19 11/05/19 20:04 20:04 WBC RBC Hgb Hct MCV MCH MCHC RDW Std Deviation RDW Coeff of Bhavesh Plt Count MPV Immature Gran % (Auto) Neut % (Auto) Lymph % (Auto) Zavala % (Auto) Eos % (Auto) Baso % (Auto) Neut # (Auto) Lymph # (Auto) Zavala # (Auto) Eos # (Auto) Baso # (Auto) Immature Gran # (Auto) Carboxyhemoglobin 0.0 Sodium Potassium Chloride Carbon Dioxide Anion Gap BUN Creatinine Est Cr Clr Drug Dosing Est GFR ( Amer) Est GFR (Non-Af Amer) BUN/Creatinine Ratio Glucose POC Glucose Calcium Total Bilirubin AST ALT Alkaline Phosphatase Total Protein Albumin Globulin Albumin/Globulin Ratio TSH Urine Color Urine Appearance Urine pH Ur Specific [place] Urine Protein Urine Glucose (UA) Urine Ketones Urine Blood Urine Nitrite Urine Bilirubin Urine Urobilinogen Ur Leukocyte Esterase Salicylates Urine Opiates Screen Ur Methadone, Qual Acetaminophen Urine Barbiturates Ur Phencyclidine (PCP) U Amphetamin/Meth Scrn MDMA (Ecstasy) Screen U Benzodiazepines Scrn Ur Cocaine Metabolite U Marijuana (THC) Screen Ethyl Alcohol mg/dL < 3.0 Current Inpatient Medications Current Inpatient Medications: Current Inpatient Medications Acetaminophen (Tylenol) 650 mg PO Q4H PRN PRN Reason: Headache or Minor Fever Stop: 12/05/19 23:48 Al Hydrox/Mg Hydrox/Simethicone (Maalox) 30 ml PO Q4H PRN PRN Reason: GI Upset Stop: 12/05/19 23:48 Bismuth Subsalicylate (Kaopectate) 15 ml PO PRN PRN PRN Reason: Loose Stool Stop: 12/05/19 23:48 Hydroxyzine HCl (Vistaril) 50 mg PO HSZ PRN PRN Reason: Insomnia Stop: 12/05/19 23:48 Hydroxyzine HCl (Vistaril) 25 mg PO Q4H PRN PRN Reason: Anxiety Stop: 12/05/19 23:48 Magnesium Hydroxide (Milk Of Magnesia) 30 ml PO DAILY PRN PRN Reason: Constipation Stop: 12/05/19 23:48 Miscellaneous (Remove Nicoderm Patch) 1 ea N/A [id number] [facility] Stop: 12/06/19 08:58 Nicotine (Nicoderm Cq) 7 mg TD QAM [facility] Stop: 12/06/19 08:59 Olanzapine (Zyprexa Zydis Od) 5 mg PO QAM [facility] Stop: 12/06/19 12:44 Last Admin: 11/06/19 13:09 Dose: 5 mg Documented by: Sodium Chloride ([place] Nasal) 1 - 2 sprays NA PRN PRN PRN Reason: Nasal Dryness/Congestion Stop: 12/05/19 23:48
--- NOTE | 2019-11-06 15:21 | Electrocardiogram Report ---
Test Reason : Blood Pressure : / mmHG Vent. Rate : 055 BPM Atrial Rate : 055 BPM P-R Int : 128 ms QRS Dur : 104 ms QT Int : 438 ms P-R-T Axes : 053 029 049 degrees QTc Int : 419 ms Sinus bradycardia RSR' or QR pattern in V1 suggests right ventricular conduction delay Otherwise normal ECG When compared with ECG of 03-SEP-2018 08:08, No significant change was found Confirmed by Alex Carty ([id number]) on 11/06/2019 3:21:26 PM Referred By: REFERRED SELF Confirmed By:Alex Carty
[2019-11-06] MEDS: NICOTINE 7 MG/24 HR TDSY TD SCH (17:41)
[2019-11-07] MEDS: OLANZAPINE ZYDIS 5 MG ORALLY DIS. TAB PO SCH (09:40)
[2019-11-07] MEDS: NICOTINE 7 MG/24 HR TDSY TD SCH (09:41)
[2019-11-07] MEDS ORDERED: haloperidoL 5 MG TAB PO STA (10:03)
[2019-11-07] MEDS ORDERED: LORazepam 1 MG TAB PO STA ×2 (10:04→13:05)
[2019-11-07] MEDS ORDERED: BENZTROPINE MESYLATE 0.5 MG TAB PO STA (10:05)
[2019-11-07] MEDS: lamoTRIgine 25 MG TAB PO SCH (10:11)
[2019-11-07] MEDS: DULOXETINE HCL 20 MG CAP PO SCH (10:11)
[2019-11-07] MEDS ORDERED: haloperidoL 5 MG TAB PO ONE (10:16)
[2019-11-07] MEDS ORDERED: HALOPERIDOL LACTATE 5 MG/ML 1 ML VIAL IM PRN (12:14)
[2019-11-07] MEDS ORDERED: BENZTROPINE MESYLATE 1 MG/ML 2 ML AMP IM PRN (12:18)
[2019-11-07] MEDS ORDERED: LORazepam 2 MG/ML VIAL (IM USE) IM PRN (12:35)
[2019-11-07] MEDS ORDERED: LORazepam 1 MG TAB ONE (12:56)
[2019-11-07] MEDS ORDERED: LORazepam 1 MG TAB PO PRN (13:05)
[2019-11-07] MEDS: BENZTROPINE MESYLATE 1 MG TAB PO PRN (13:08)
[2019-11-07] MEDS: haloperidoL 5 MG TAB PO PRN ×2 (13:08→13:09)
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
[2019-11-08] MEDS: OLANZAPINE ZYDIS 10 MG ORALLY DIS. TAB PO SCH (09:17)
[2019-11-08] MEDS: DULOXETINE HCL 20 MG CAP PO SCH (09:18)
[2019-11-08] MEDS: lamoTRIgine 25 MG TAB PO SCH (09:18)
[2019-11-08] MEDS: NICOTINE 7 MG/24 HR TDSY TD SCH (09:20)
[2019-11-08] MEDS: haloperidoL 5 MG TAB PO PRN (09:40)
[2019-11-08] MEDS: BENZTROPINE MESYLATE 1 MG TAB PO PRN (09:40)
--- NOTE | 2019-11-08 16:34 | Psychiatric Progress Note ---
Date of Service November 08, 2019 Impression / Recommendations Impression As per admitting provider: At this point, the patient remained somewhat of a mystery. He seems paranoid and often is observed creeping suspiciously around the unit and staring with a fixed gaze into the nursing station --and then essentially running away if someone catches his eye. His affect is flat, and at times he appears to be almost catatonic. The patient does verbally acknowledge that his mood is depressedalthough sometimes he responds to questions about mood by saying "I am ." The admission was precipitated by the fact that the patient was observed by his neighbors laying in the street in front of his home. Records from previous emergency room visits over the past several years indicate that the patient has a history of recurrent depression and recurrent suicidal ideation. He also has a history in 2018 or 2018 of taking a deliberate overdose of medication. Adherence with treatment seems to clearly be an issue, both in the past and during the period of time leading up to the admission. The patient is demonstrating psychotic features. He clearly appears to be responding to internal stimuli as evidenced by his speaking as if to an unseen person in an empty room. He also periodically insists that he is "already ," and when asked if he means that he feels " inside," he responds "no. I am already . Bury me." (1) Depression: 11/06/19 -The [facility] and placed on suicide precautions with close observation. He is also been placed in a medically necessary private room and has been referred for individual, group, and activity therapies and is being encouraged to attend and participate. We will also work to gather additional information from his and will plan to hold a telephonic family meeting if the patient agrees. -Patient's outpatient medications reportedly include lamotrigine 100 mg a day, duloxetine 60 mg a day, hydroxyzine 50 mg once a day "as needed," and aripiprazole 15 mg daily. In the past, he has taken venlafaxine. There is a long history of nonadherence, and it is not clear when the patient took any of these medications. Currently, we do not know when the patient took lamotrigine most recently and we are reluctant to prescribe lamotrigine at 100 mg a day. Instead, we will again lamotrigine at 25 mg a day and titrate as indicated. We will be placed on duloxetine 40 mg a day. (This is lower than his outpatient dose, but, again, he evidently has not been taking it.) As needed hydroxyzine has been ordered. We have decided to hold aripiprazole for the time being in favor of Zyprexa Zydis starting at 5 mg and titrating as indicated. 11/06 -Patient giving inconsistent self-report regarding thoughts of self-harm but again acknowledges today wish as per HPI -We will continue Cymbalta at reduced dose for now. Certainly this type of presentation seems atypical for psychosis associated with major depressive disorder and I am concerned for increasing his activation -We will need to hold the Lamictal re-titration if he remains noncompliant or sporadically compliant with p.o. medication 11/07 -Discontinue reduced dose of Cymbalta and substitute lexapro 10 mg daily chosen for reduced activation potential as compared to SNRI. (2) Threatening suicide: 11/06/19 -The patient was observed laying in the road in front of his house last evening and he continues to endorse suicidal ideation. -Patient will be closely monitored on suicide precautions (3) Psychosis: 11/06 -Patient demonstrating an appropriate sexualized and aggressive behaviors, appears paranoid, bizarre -Admission labs reviewed and essentially unremarkable. Reviewed head CT from 11/05/2019 indicating no acute process. Previous head CT from October 10, 2019 noted patchy white matter hypodensities likely small vessel disease. That CT was checked for worsening tremor. Ne recent etoh use known. Vital signs do not support likelihood of withdrawal. urine tox neg. -Will increase standing olanzapine to 10 mg p.o. tomorrow a.m. -Patient received Haldol 5 mg as needed (in combination with Ativan and Cogentin) for acute agitation not responsive to nonpharmacological interventions today 11/07 -Etiology for acute psychosis remains unclear. Medical work-up at admission not suspicious for obvious etiology for delirium. Nursing reported possible blood in urine however he has been urinating on the floor and obtaining a sample for repeat urinalysis with culture may prove difficult but should be considered -Cannot rule out underlying progressive neurocognitive disorder with stepwise decompensation. Early age of onset, behavior and personality changes greater t berger memory loss might suggest frontotemporal etiology however more likely mixed etiology with evidence of cerebrovascular disease on most recent neuroimaging and extensive alcohol abuse history. -We will continue to utilize Haldol 5 mg, Ativan 1 mg, Cogentin 1 mg every 6 hours as needed's for acute behavioral disturbance. -Patient has been accepting of medications and unlikely to improve without pharmacotherapy. Due to impaired insight secondary to psychosis, treatment over objection may be necessary and is felt to be appropriate in my clinical opinion -Over the last 24 hours, intensity and frequency of aggression and sexualized behaviors is modestly improved. However, if trend does not continue positively, would recommend consideration for Risperdal as alternative to olanzapine and possibly a Depakote trial as well. Inventory Assets Strengths: Supportive family. Positive work history in the past. The record indicates that there has been a favorable response to treatment previously. Needs: Improved ability to cooperate with treatment. Adherence with psychiatric medications. Resolution of psychosis. Stabilization of mood. Risk Factors Assessment Male: Yes : Yes Do You Have Access To A Gun?: Yes (The patient denies that there are guns in his home. However, the old records indicate that at least in the past there were guns. This will need to be investigated further.) Health Problems: Yes Mental Health Diagnoses: Yes Substance Use Disorders: No Previous Attempt: Yes (Details of the previous attempt are not known at this time., Other than the attempt reportedly occurred within the past year or 2 and consisted of his swallowing a toxic overdose.) Family History of Suicide: Yes Previous Psychiatric Hospitalization: Yes Hopelessness: Yes Smoker: Yes Protective Factors Assessment Sikhism Beliefs: No : Yes Responsible for Young Children: No Employed: No (lost job a year ago) Stable Relationships: Yes Supportive Family: Yes Good Rapport with Provider: No Absence of Any Risk Factors Above: No Interval History Chief Complaint "Holy F_!". Review of Systems Sleep Information Total Hours of Sleep: 10 Sleep Comments: pt. had received a prn dose of ativan in the ED for anxiety management prior to his admit Meal Information Percent Meal Consumed - Breakfast: 15 Percent Meal Consumed - Lunch: 0 Percent Meal Consumed - Dinner: 100 Nutrition Comment: Pt. had a few bites of collazo, his sandwich and orange juice, then threw his food/drink at the nurses station window Subjective Subjective Patient was seen & assessed and interval progress reviewed with treatment team. Patient had a difficult day overall yesterday with his demeanor changing from depressive and skittish to abruptly mildly aggressive including some physical posturing and throwing of multiple objects as well as sexually inappropriate behaviors including exposing his genitalia and sexualized comments towards staff and security personnel. He required presence of security on the unit multiple times yesterday but did not require restraints or IM administration of medication. Additional history obtained from patient's supports possibility of some declining condition overall since around 2017 with mild confusion but not to the point of requiring additional assistance at home. He has been more apathetic and more prone towards depression for the past few years. First psychiatric hospitalization in 2018. Recurrent nihilistic delusions reported. Stopped drinking in 2019 but had been drinking 6-12 beers per day at times and extensive duration of excessive alcohol intake reported between ages 19 and last year. Patient is not participatory in interview to a significant degree today. He is able to correctly identify his location. He does not characterize mood. He initially throws offered prn medications but accepts them on immediate reapproach. He is insulting regarding the body habitus of a senior it security analyst on the unit. He abruptly blurts out lyrics to songs in a loud and disinhibited manner. Physical Exam Psychiatric Orientation: + uncooperative Apperance: + disheveled Eye Contact: + poor eye contact Motor Behavior: steady gait and station and no abnormal motor movements Speech: + abnormal rate/rhythm/volume of speech (Speech generally minimal but at times abruptly loud) Affect: + labile affect Does not characterize mood today Thought Process: + thought process not clear or coherent Thought Content: + delusions Impossible to appreciate thought content today due to limited participation in psychiatric interview Cannot rule out AVH Cognition: + recent memory not intact and + attention not intact Insight: + severely impaired insight Judgement: + severely impaired judgement Vital Signs (Past 24 Hours) Last Vital Signs Temp 36.6 C 11/07/19 06:44 Pulse 56 L 11/07/19 06:45 Resp 20 11/07/19 06:44 BP 97/67 L 11/07/19 06:45 Pulse Ox 97 11/05/19 23:34 Results & Data ([facility]) Current Inpatient Medications Current Inpatient Medications: Current Inpatient Medications Acetaminophen (Tylenol) 650 mg PO Q4H PRN PRN Reason: Headache or Minor Fever Stop: 12/05/19 23:48 Al Hydrox/Mg Hydrox/Simethicone (Maalox) 30 ml PO Q4H PRN PRN Reason: GI Upset Stop: 12/05/19 23:48 Benztropine Mesylate (Cogentin) 1 mg IM Q6H PRN PRN Reason: dystonia Stop: 12/07/19 12:17 Benztropine Mesylate (Cogentin) 1 mg PO Q6H PRN PRN Reason: dystonia Stop: 12/07/19 12:20 Last Admin: 11/08/19 09:40 Dose: 1 mg Documented by: Bismuth Subsalicylate (Kaopectate) 15 ml PO PRN PRN PRN Reason: Loose Stool Stop: 12/05/19 23:48 Duloxetine HCl (Cymbalta) [address] [facility] Stop: 12/07/19 08:59 Last Admin: 11/08/19 09:18 Dose: 40 mg Documented by: Haloperidol (Haldol) 5 mg PO Q6H PRN PRN Reason: acute agitation/aggression Stop: 12/07/19 12:19 Last Admin: 11/08/19 09:40 Dose: 5 mg Documented by: Haloperidol Lactate (Haldol) 5 mg IM Q6H PRN PRN Reason: aggression/agitation Stop: 12/07/19 12:13 Hydroxyzine HCl (Vistaril) 50 mg PO HSZ PRN PRN Reason: Insomnia Stop: 12/05/19 23:48 Hydroxyzine HCl (Vistaril) 25 mg PO Q4H PRN PRN Reason: Anxiety Stop: 12/05/19 23:48 Lamotrigine (Lamictal) [address] [facility] Stop: 12/07/19 08:59 Last Admin: 11/08/19 09:18 Dose: 25 mg Documented by: Lorazepam (Ativan) 2 mg IM Q6H PRN PRN Reason: Agitation Stop: 12/07/19 12:34 Lorazepam (Ativan) 1 mg PO Q6H PRN PRN Reason: agitation/aggression Stop: 12/07/19 13:04 Last Admin: 11/08/19 09:40 Dose: 1 mg Documented by: Magnesium Hydroxide (Milk Of Magnesia) 30 ml PO DAILY PRN PRN Reason: Constipation Stop: 12/05/19 23:48 Miscellaneous (Remove Nicoderm Patch) 1 ea N/A DAILY@[id number] [facility] Stop: 12/06/19 08:58 Last Admin: 11/08/19 09:20 Dose: Not Given Documented by: Nicotine (Nicoderm Cq) 7 mg TD QAM MICHEL Stop: 12/06/19 08:59 Last Admin: 11/08/19 09:20 Dose: Not Given Documented by: Olanzapine (Zyprexa Zydis Od) 10 mg PO QAM MICHEL Stop: 12/08/19 08:59 Last Admin: 11/08/19 09:17 Dose: 10 mg Documented by: Sodium Chloride ([place] Nasal) 1 - 2 sprays NA PRN PRN PRN Reason: Nasal Dryness/Congestion Stop: 12/05/19 23:48 Mental Health & Subst Abuse Tx Therapist Name of Therapist: None Glass Designer Name of Glass Designer: None Post Discharge Appointments Primary Care Physician Name Of Family Doctor: [facility] Mj Dennis PA-C Primary Care Provider Appointment Comment: [address] [facility], [address], [place] [address] Contact Information Discharge Discharge Address: [address] [place] [address] [place] [id number] (1) Depression Active/Remission status: currently active Depression Type: major depressive disorder Major depression episode severity: severe Major depression recurrence: single episode Psychotic features: with psychotic features Qualified Code(s): F32.3 - Major depressive disorder, single episode, severe with psychotic features
[2019-11-09] MEDS: lamoTRIgine 25 MG TAB PO SCH (08:13)
[2019-11-09] MEDS: ESCITALOPRAM OXALATE 10 MG TAB PO SCH (08:13)
[2019-11-09] MEDS: OLANZAPINE ZYDIS 10 MG ORALLY DIS. TAB PO SCH (08:13)
[2019-11-09] MEDS: NICOTINE 7 MG/24 HR TDSY TD SCH (08:16)
--- NOTE | 2019-11-09 09:53 | Psychiatric Progress Note ---
Date of Service November 09, 2019 Impression / Recommendations Impression Patient remains severely impaired by his psychiatric symptoms, is confused, a poor historian, and appears paranoid and depressed. Although he is denying suicidal thoughts, he admits to lying in the road and at times has stated that he is already . The admission was precipitated by the fact that the patient was observed by his neighbors laying in the street in front of his home. Records from previous emergency room visits over the past several years indicate that the patient has a history of recurrent depression and recurrent suicidal ideation. He also has a history in 2018 or 2018 of taking a deliberate overdose of medication. Treatment nonadherence has been an issue, both in the past and during the period of time leading up to the admission. The patient is demonstrating psychotic features, appears to be responding to internal stimuli as evidenced by his speaking as if to an unseen person in an empty room. Multiple medication changes are being made, including re-titration of lamotrigine as he had been nonadherent with all medications prior to admission, taper off of duloxetine and initiation of escitalopram, and initiation of olanzapine. He is also receiving haloperidol and Lorazepam as needed for agitation, aggression, and sexually inappropriate behavior. He is on a 302 involuntary commitment, and we have scheduled a 303 hearing for tomorrow. Inpatient psychiatric treatment is medically necessary due to the severity of symptoms and risk of harm to both himself and others. (1) Threatening suicide: 11/06/19 -The patient was observed laying in the road in front of his house last evening and he continues to endorse suicidal ideation. -Patient will be closely monitored on suicide precautions (2) Depression: 11/06/19 -[facility] and placed on suicide precautions with close observation. He is also been placed in a medically necessary private room and has been referred for individual, group, and activity therapies and is being encouraged to attend and participate. We will also work to gather additional information from his and will plan to hold a telephonic family meeting if the patient agrees. -Patient's outpatient medications reportedly include lamotrigine 100 mg a day, duloxetine 60 mg a day, hydroxyzine 50 mg once a day "as needed," and aripiprazole 15 mg daily. In the past, he has taken venlafaxine. There is a long history of nonadherence, and it is not clear when the patient took any of these medications. Currently, we do not know when the patient took lamotrigine most recently and we are reluctant to prescribe lamotrigine at 100 mg a day. Instead, we will again lamotrigine at 25 mg a day and titrate as indicated. We will be placed on duloxetine 40 mg a day. (This is lower than his outpatient dose, but, again, he evidently has not been taking it.) As needed hydroxyzine has been ordered. We have decided to hold aripiprazole for the time being in favor of Zyprexa Zydis starting at 5 mg and titrating as indicated. 11/06 -Patient giving inconsistent self-report regarding thoughts of self-harm but again acknowledges today wish as per HPI -We will continue Cymbalta at reduced dose for now. Certainly this type of presentation seems atypical for psychosis associated with major depressive d isorder and I am concerned for increasing his activation -We will need to hold the Lamictal re-titration if he remains noncompliant or sporadically compliant with p.o. medication 11/07 -Discontinue reduced dose of Cymbalta and substitute lexapro 10 mg daily chosen for reduced activation potential as compared to SNRI. 11/08 -Continue escitalopram and lamotrigine titrations. -303 hearing scheduled for tomorrow. Patient indicates willingness for inpatient treatment at this time. (3) Psychosis: 11/06 -Patient demonstrating an appropriate sexualized and aggressive behaviors, appears paranoid, bizarre -Admission labs reviewed and essentially unremarkable. Reviewed head CT from 11/05/2019 indicating no acute process. Previous head CT from October 10, 2019 noted patchy white matter hypodensities likely small vessel disease. That CT was checked for worsening tremor. Ne recent etoh use known. Vital signs do not support likelihood of withdrawal. urine tox neg. -Will increase standing olanzapine to 10 mg p.o. tomorrow a.m. -Patient received Haldol 5 mg as needed (in combination with Ativan and Cogentin) for acute agitation not responsive to nonpharmacological interventions today 11/07 -Etiology for acute psychosis remains unclear. Medical work-up at admission not suspicious for obvious etiology for delirium. Nursing reported possible bl ood in urine however he has been urinating on the floor and obtaining a sample for repeat urinalysis with culture may prove difficult but should be considered -Cannot rule out underlying progressive neurocognitive disorder with stepwise decompensation. Early age of onset, behavior and personality changes greater than memory loss might suggest frontotemporal etiology however more likely mixed etiology with evidence of cerebrovascular disease on most recent neuroimaging and extensive alcohol abuse history. -We will continue to utilize Haldol 5 mg, Ativan 1 mg, Cogentin 1 mg every 6 hours as needed's for acute behavioral disturbance. -Patient has been accepting of medications and unlikely to improve without pharmacotherapy. Due to impaired insight secondary to psychosis, treatment over objection may be necessary and is felt to be appropriate in my clinical opinion -Over the last 24 hours, intensity and frequency of aggression and sexualized behaviors is modestly improved. However, if trend does not continue positively, would recommend consideration for Risperdal as alternative to olanzapine and possibly a Depakote trial as well. 11/08 -Improved behavioral control so far today, continue to utilize PRN medications as these appear to have been beneficial. Continue olanzapine 10 mg at bedtime, and order fasting labs for tomorrow. -Rule out delirium: Reviewed labs which were normal at the time of admission. Have attempted to get a repeat UA, but patient has been unwilling/unable to provide a sample. He denies UTI symptoms. He has had multiple head CTs in the past 2 months which were negative for acute intracranial abnormality. No current signs of alcohol withdrawal. Differential includes psychotic mood disorder, dementing process, occult medical issue. -Continue private room until he improves and is able to maintain behavioral control. Excused from groups until able to demonstrate appropriate behavior. -Will need family meeting with and referrals for outpatient treatment once able to tolerate these discussions. Inventory Assets Strengths: Supportive family. Positive work history in the past. The record indicates that there has been a favorable response to treatment previously. Needs: Improved ability to cooperate with treatment. Adherence with psychiatric medications. Resolution of psychosis. Stabilization of mood. Risk Factors Assessment Male: Yes : Yes Do You Have Access To A Gun?: Yes (The patient denies that there are guns in his home. However, the old records indicate that at least in the past there were guns. This will need to be investigated further.) Health Problems: Yes Mental Health Diagnoses: Yes Substance Use Disorders: No Previous Attempt: Yes (Details of the previous attempt are not known at this time., Other than the attempt reportedly occurred within the past year or 2 and consisted of his swallowing a toxic overdose.) Family History of Suicide: Yes Previous Psychiatric Hospitalization: Yes Hopelessness: Yes Smoker: Yes Protective Factors Assessment Temple Beliefs: No : Yes Responsible for Young Children: No Employed: No (lost job a year ago) Stable Relationships: Yes Supportive Family: Yes Good Rapport with Provider: No Absence of Any Risk Factors Above: No Interval History Identifying Information FIORDALIZA NAZARIO is a 59-year-old M who currently lives in [place], [place] with his . He has a history of recurrent episodes of major depression. He was admitted on 11/05/19 23:05 on a 201 voluntary commitment for altered mental status after his neighbors observed him laying down in the middle of the road in front of his house. Chief Complaint " Anxiety, bored, boredom". Review of Systems Notes Denies urinary urgency, frequency, dysuria, constipation, and pain. Sleep Information Total Hours of Sleep: 11.25 Meal Information Percent Meal Consumed - Breakfast: 50 Percent Meal Consumed - Lunch: 0 Percent Meal Consumed - Dinner: 50 Subjective Subjective Patient was seen & assessed and interval progress reviewed with treatment team. Staff report the social insurance adviser contacted his for collateral information: She reported they have been together for 40 years, the patient has always been an alcoholic, and drinking increased in 2017 when he started feeling paranoid at work. He would call her daily, stating he needed to get out of there immediately. In 2018, he was hospitalized at [facility] for paranoia. When he was discharged and returned to work, they assigned him a different role, and he then became depressed and overdosed in 2019, and was hospitalized at [facility]. He then lost his job. When the pandemic started, he decompensated, and was stating that everyone was going to , was more con fused, paranoid, not showering or caring for himself. He has been sleeping excessively for several years, 12 to 16 hours a day. She denies that he has ever been sexually preoccupied or inappropriate, and is typically a quiet man. She said they do not have children, but he has a step grandson who is in trouble all the time. He continued to display inappropriate and verbally aggressive behavior yesterday, yelling at the net developer when they attempted to clean a spill on the floor, calling staff inappropriate names, banging on the windows and door, and throwing food and orange juice at the nurses station window. Security was called, and he ultimately accepted p.o. haloperidol. He later returned to the nurses station and was yelling obscenities, and urinated on his floor. He refused to change into clean clothing. He received as needed doses of haloperidol and Lorazepam yesterday, was switched from duloxetine to escitalopram, and took his scheduled escitalopram, olanzapine, and lamotrigine today. On my assessment today, he was seen with nursing staff for safety. He was seated on his bed in no acute distress, calm and appropriate, although sometimes gave unintelligible answers. He states he is here because of anxiety and boredom, and that his brought him to the hospital. He admits he was sitting in the road prior to admission, and says he did this because "distresse d, just want a new trailer." He reports high anxiety, which he attributes to "hopeless, don't want to do anything," but unable to clarify further. He says his mood is "a little bit better," and denies suicidal thoughts. He says he is working on his issues by "stretching and doing exercises," and wants to attend groups. He reports good appetite, and describes sleep as "off and on." He initially denies urinating on the floor, then says he "just did it once." Reviewed recommendations for ongoing inpatient treatment and he indicates agreement, stating "sounds like a green party." Physical Exam Psychiatric Orientation: alert Oriented X 08/17 (knew the year, [facility], [place], [place]; did not know the day, date, or month). Apperance: + disheveled; + inappropriately groomed Appears older than his stated age, unkempt hair and ornelas. Dressed in paper scrubs, poor hygiene and grooming. Seated on bed in no acute distress. Eye Contact: + fair eye contact Occasional lip smacking Mumbles incoherently at times Affect: + blunted affect Appears suspicious "Hopeless, bored." "Distressed." "A little bit better." Thought Process: + concrete thought process; + thought process not clear or coherent Thought Content: + paranoid Suicidal Thoughts: denies suicidal thoughts Homicidal Thoughts: denies homicidal thoughts Hallucinations: no auditory hallucinations Cognition: + recent memory not intact Insight: + limited insight Judgement: + limited judgement Vital Signs (Past 24 Hours) Last Vital Signs Temp 36.6 C 11/07/19 06:44 Pulse 56 L 11/07/19 06:45 Resp 20 11/07/19 06:44 BP 97/67 L 11/07/19 06:45 Pulse Ox 97 11/05/19 23:34 Results & Data ([facility]) Current Inpatient Medications Current Inpatient Medications: Current Inpatient Medications Acetaminophen (Tylenol) 650 mg PO Q4H PRN PRN Reason: Headache or Minor Fever Stop: 12/05/19 23:48 Al Hydrox/Mg Hydrox/Simethicone (Maalox) 30 ml PO Q4H PRN PRN Reason: GI Upset Stop: 12/05/19 23:48 Benztropine Mesylate (Cogentin) 1 mg IM Q6H PRN PRN Reason: dystonia Stop: 12/07/19 12:17 Benztropine Mesylate (Cogentin) 1 mg PO Q6H PRN PRN Reason: dystonia Stop: 12/07/19 12:20 Last Admin: 11/08/19 09:40 Dose: 1 mg Documented by: Bismuth Subsalicylate (Kaopectate) 15 ml PO PRN PRN PRN Reason: Loose Stool Stop: 12/05/19 23:48 Escitalopram Oxalate ([facility]apro Tab) [facility] [place] Stop: 12/09/19 08:59 Last Admin: 11/09/19 08:13 Dose: 10 mg Documented by: Haloperidol (Haldol) 5 mg PO Q6H PRN PRN Reason: acute agitation/aggression Stop: 12/07/19 12:19 Last Admin: 11/08/19 09:40 Dose: 5 mg Documented by: Haloperidol Lactate (Haldol) 5 mg IM Q6H PRN PRN Reason: aggression/agitation Stop: 12/07/19 12:13 Hydroxyzine HCl (Vistaril) 50 mg PO HSZ PRN PRN Reason: Insomnia Stop: 12/05/19 23:48 Hydroxyzine HCl (Vistaril) 25 mg PO Q4H PRN PRN Reason: Anxiety Stop: 12/05/19 23:48 Lamotrigine (Lamictal) 25 mg PO QAM [facility] Stop: 12/07/19 08:59 Last Admin: 11/09/19 08:13 Dose: 25 mg Documented by: Lorazepam (Ativan) 2 mg IM Q6H PRN PRN Reason: Agitation Stop: 12/07/19 12:34 Lorazepam (Ativan) 1 mg PO Q6H PRN PRN Reason: agitation/aggression Stop: 12/07/19 13:04 Last Admin: 11/08/19 09:40 Dose: 1 mg Documented by: Magnesium Hydroxide (Milk Of Magnesia) 30 ml PO DAILY PRN PRN Reason: Constipation Stop: 12/05/19 23:48 Miscellaneous (Remove Nicoderm Patch) 1 ea N/A DAILY@858 [facility] Stop: 12/06/19 08:58 Last Admin: 11/09/19 08:16 Dose: Not Given Documented by: Nicotine (Nicoderm Cq) 7 mg TD QAM [facility] Stop: 12/06/19 08:59 Last Admin: 11/09/19 08:16 Dose: Not Given Documented by: Olanzapine (Zyprexa Zydis Od) 10 mg PO QAM [facility] Stop: 12/08/19 08:59 Last Admin: 11/09/19 08:13 Dose: 10 mg Documented by: Sodium Chloride (Searcy Nasal) 1 - 2 sprays NA PRN PRN PRN Reason: Nasal Dryness/Congestion Stop: 12/05/19 23:48 Mental Health & Subst Abuse Tx Therapist Name of Therapist: None Vendor Management Associate Name of Vendor Management Associate: None Post Discharge Appointments Primary Care Physician Name Of Family Doctor: [facility] - Reid Dennis PA-C Primary Care Provider Appointment Comment: [address], [address], [place] [address] Contact Information Discharge Discharge [address]: [address] [place] [address], [place] [id number] (1) Depression Active/Remission status: currently active Depression Type: major depressive disorder Major depression episode severity: severe Major depression recurrence: single episode Psychotic features: with psychotic features Qualified Code(s): F32.3 - Major depressive disorder, single episode, severe with psychotic features
[2019-11-10] MEDS: OLANZAPINE ZYDIS 10 MG ORALLY DIS. TAB PO SCH (07:32)
[2019-11-10] MEDS: ESCITALOPRAM OXALATE 10 MG TAB PO SCH (07:33)
[2019-11-10] MEDS: lamoTRIgine 25 MG TAB PO SCH (07:34)
[2019-11-10] MEDS: NICOTINE 7 MG/24 HR TDSY TD SCH (07:34)
[2019-11-10 08:31] LABS: Glucose Fasting 91 mg/dl (70-99)
[2019-11-10 08:38] LABS: Chol HDL Ratio 5; Cholesterol 222 mg/dl (0-200); HDL Cholesterol 44 mg/dl; LDL Cholesterol Calculated 161 mg/dl; Triglycerides 85 mg/dl (0-150); VLDL Cholesterol 17 mg/dl
--- NOTE | 2019-11-10 08:47 | Psychiatric Progress Note ---
Date of Service November 10, 2019 Impression / Recommendations Impression Patient remains severely impaired by his psychiatric symptoms, is confused, a poor historian, and appears paranoid and depressed. Although he is denying suicidal thoughts, he admits to lying in the road prior to admission, and at times has stated that he is already . The admission was precipitated by the fact that the patient was observed by his neighbors laying in the street in front of his home, and was found to be altered in the ER, endorsed depression and suicidal ideation. His reported he had not been caring for himself for approximately 10 weeks, was increasingly depressed, was not showering, changing his clothes, or performing ADLs. Records from previous emergency room visits over the past several years indicate that the patient has a history of recurrent depression and recurrent suicidal ideation. He also has a history in 2018 or 2018 of taking a deliberate overdose of medication. Treatment nonadherence has been an issue, both in the past and during the period of time leading up to the admission. The patient is demonstrating psychotic features, appears to be responding to internal stimuli as evidenced by his speaking as if to an unseen person in an empty room. Multiple medication changes are being made, including re-titration of lamotrigine as he had been nonadherent with all medications prior to admission, taper off of duloxetine and initiation of escitalopram, and initiation of olanzapine. He is also receiving haloperidol and Lorazepam as needed for agitation, aggression, and sexually inappropriate behavior. He is on a 303 involuntary commitment as of today. Inpatient psychiatric treatment is medically necessary due to the severity of symptoms and risk of harm to both himself and others. (1) Threatening suicide: 11/06/19 -The patient was observed laying in the road in front of his house last evening and he continues to endorse suicidal ideation. -Patient will be closely monitored on suicide precautions 11/09 - Patient denying SI but reporting ongoing depression. (2) Depression: 11/06/19 -The patient has been admitted to the [facility] unit and placed on suicide precautions with close observation. He is also been placed in a medically necessary private room and has been referred for individual, group, and activity therapies and is being encouraged to attend and participate. We will also work to gather additional information from his and will plan to hold a telephonic family meeting if the patient agrees. -Patient's outpatient medications reportedly include lamotrigine 100 mg a day, duloxetine 60 mg a day, hydroxyzine 50 mg once a day "as needed," and aripiprazole 15 mg daily. In the past, he has taken venlafaxine. There is a long history of nonadherence, and it is not clear when the patient took any of these medications. Currently, we do not know when the patient took lamotrigine most recently and we are reluctant to prescribe lamotrigine at 100 mg a day. Instead, we will again lamotrigine at 25 mg a day and titrate as indicated. We will be placed on duloxetine 40 mg a day. (This is lower than his outpatient dose, but, again, he evidently has not been taking it.) As needed hydroxyzine has been ordered. We have decided to hold aripiprazole for the time being in favor of Zyprexa Zydis starting at 5 mg and titrating as indicated. 11/06 -Patient giving inconsistent self-report regarding thoughts of self-harm but again acknowledges today wish as per HPI -We will continue Cymbalta at reduced dose for now. Certainly this type of presentation seems atypical for psychosis associated with major depressive disorder and I am concerned for increasing his activation -We will need to hold the Lamictal re-titration if he remains noncompliant or sporadically compliant with p.o. medication 11/07 -Discontinue reduced dose of Cymbalta and substitute lexapro 10 mg daily chosen for reduced activation potential as compared to SNRI. 11/08 -Continue escitalopram and lamotrigine titrations. -303 hearing scheduled for tomorrow. Patient indicates willingness for inpatient treatment at this time. 11/09 -303 granted. -Increase escitalopram to 15mg daily to target depression. -Continue lamotrigine and olanzapine. Reviewed fasting labs for monitoring on an atypical antipsychotic: cholesterol 222, remainder WNLs. -Patient not yet able to tolerate groups or a family meeting. He will also need referrals for outpatient mental health treatment. (3) Psychosis: 11/06 -Patient demonstrating an appropriate sexualized and aggressive behaviors, appears paranoid, bizarre -Admission labs reviewed and essentially unremarkable. Reviewed head CT from 11/05/2019 indicating no acute process. Previous head CT from October 10, 2019 noted patchy white matter hypodensities likely small vessel disease. That CT was checked for worsening tremor. Ne recent etoh use known. Vital signs do not support likelihood of withdrawal. urine tox neg. -Will increase standing olanzapine to 10 mg p.o. tomorrow a.m. -Patient received Haldol 5 mg as needed (in combination with Ativan and Co gentin) for acute agitation not responsive to nonpharmacological interventions today 11/07 -Etiology for acute psychosis remains unclear. Medical work-up at admission not suspicious for obvious etiology for delirium. Nursing reported possible blood in urine however he has been urinating on the floor and obtaining a sample for repeat urinalysis with culture may prove difficult but should be considered -Cannot rule out underlying progressive neurocognitive disorder with stepwise decompensation. Early age of onset, behavior and personality changes greater than memory loss might suggest frontotemporal etiology however more likely mixed etiology with evidence of cerebrovascular disease on most recent neuroimaging and extensive alcohol abuse history. -We will continue to utilize Haldol 5 mg, Ativan 1 mg, Cogentin 1 mg every 6 hours as needed's for acute behavioral disturbance. -Patient has been accepting of medications and unlikely to improve without pharmacotherapy. Due to impaired insight secondary to psychosis, treatment over objection may be necessary and is felt to be appropriate in my clinical opinion -Over the last 24 hours, intensity and frequency of aggression and sexualized behaviors is modestly improved. However, if trend does not continue positively, would recommend consideration for Risperdal as alternative to olanzapine and possibly a Depakote trial as well. 11/08 -Improved behavioral control so far today, continue to utilize PRN medications as these appear to have been beneficial. Continue olanzapine 10 mg at bedtime, and order fasting labs for tomorrow. -Rule out delirium: Reviewed labs which were normal at the time of admission. Have attempted to get a repeat UA, but patient has been unwilling/unable to provide a sample. He denies UTI symptoms. He has had multiple head CTs in the past 2 months which were negative for acute intracranial abnormality. No current signs of alcohol withdrawal. Differential includes psychotic mood disorder, dementing process, occult medical issue. -Continue private room until he improves and is able to maintain behavioral control. Excused from groups until able to demonstrate appropriate behavior. -Will need family meeting with and referrals for outpatient treatment once able to tolerate these discussions. Inventory Assets Strengths: Supportive family. Positive work history in the past. The record indicates that there has been a favorable response to treatment previously. Needs: Improved ability to cooperate with treatment. Adherence with psychiatric medications. Resolution of psychosis. Stabilization of mood. Risk Factors Assessment Male: Yes : Yes Do You Have Access To A Gun?: Yes (The patient denies that there are guns in his home. However, the old records indicate that at least in the past there were guns. This will need to be investigated further.) Health Problems: Yes Mental Health Diagnoses: Yes Substance Use Disorders: No Previous Attempt: Yes (Details of the previous attempt are not known at this time., Other than the attempt reportedly occurred within the past year or 2 and consisted of his swallowing a toxic overdose.) Family History of Suicide: Yes Previous Psychiatric Hospitalization: Yes Hopelessness: Yes Smoker: Yes Protective Factors Assessment Holiness Beliefs: No : Yes Responsible for Young Children: No Employed: No (lost job a year ago) Stable Relationships: Yes Supportive Family: Yes Good Rapport with Provider: No Absence of Any Risk Factors Above: No Interval History Identifying Information FIORDALIZA NAZARIO is a 59-year-old M who currently lives in [place], [place] with his . He has a history of recurrent episodes of major depression. He was admitted on 11/05/19 23:05 on a 201 voluntary commitment for altered mental status after his neighbors observed him laying down in the middle of the road in front of his house. Chief Complaint Patient not responding verbally. Review of Systems Sleep Information Total Hours of Sleep: 7.5 Meal Information Percent Meal Consumed - Breakfast: 50 Percent Meal Consumed - Lunch: 0 Percent Meal Consumed - Dinner: 100 Subjective Subjective Patient was seen & assessed and interval progress reviewed with nursing and social work. Staff report he was in better behavioral control yesterday, but declined a phone call from his , and has still not showered or put on clean clothes. He is taking medications as prescribed, and ate some meals, but refused others. Multiple attempts to interview him today were unsuccessful, as he was resting in bed and although opened his eyes and responded with "nah" and shook his head no when asked if he needed anything or had questions/concerns, he did not respond to other questions and closed his eyes again. He declined to talk with his securities attorney or to attend his hearing. Physical Exam Psychiatric Orientation: alert; + uncooperative Apperance: appropriately dressed and + disheveled; + inappropriately groomed Eye Contact: + poor eye contact Motor Behavior: no abnormal motor movements very minimal speech Affect: + depressed affect, + constricted affect and mood congruent with affect Mood: + depressed mood Thought Process: + concrete thought process unable to assess due to minimal speech Suicidal Thoughts: denies suicidal thoughts Insight: + impaired insight Judgement: + impaired judgement Vital Signs (Past 24 Hours) Last Vital Signs Temp 36.3 C L 11/10/19 06:45 Pulse 84 11/10/19 06:45 Resp 20 11/10/19 06:45 BP 116/73 11/10/19 06:45 Pulse Ox 97 11/05/19 23:34 Results & Data ([facility]) Laboratory Results Laboratory Results - last 24 hr 11/10/19 07:31 Fasting Glucose 91 Triglycerides 85 Cholesterol 222 H LDL Cholesterol, Calc 161 VLDL Cholesterol, Calc 17 HDL Cholesterol 44 Cholesterol/HDL Ratio 5 Current Inpatient Medications Current Inpatient Medications: Current Inpatient Medications Acetaminophen (Tylenol) 650 mg PO Q4H PRN PRN Reason: Headache or Minor Fever Stop: 12/05/19 23:48 Al Hydrox/Mg Hydrox/Simethicone (Maalox) 30 ml PO Q4H PRN PRN Reason: GI Upset Stop: 12/05/19 23:48 Benztropine Mesylate (Cogentin) 1 mg IM Q6H PRN PRN Reason: dystonia Stop: 12/07/19 12:17 Benztropine Mesylate (Cogentin) 1 mg PO Q6H PRN PRN Reason: dystonia Stop: 12/07/19 12:20 Last Admin: 11/08/19 09:40 Dose: 1 mg Documented by: Bismuth Subsalicylate (Kaopectate) 15 ml PO PRN PRN PRN Reason: Loose Stool Stop: 12/05/19 23:48 Escitalopram Oxalate (Lexapro Tab) 10 mg PO QAM MICHEL Stop: 12/09/19 08:59 Last Admin: 11/10/19 07:33 Dose: 10 mg Documented by: Haloperidol (Haldol) 5 mg PO Q6H PRN PRN Reason: acute agitation/aggression Stop: 12/07/19 12:19 Last Admin: 11/08/19 09:40 Dose: 5 mg Documented by: Haloperidol Lactate (Haldol) 5 mg IM Q6H PRN PRN Reason: aggression/agitation Stop: 12/07/19 12:13 Hydroxyzine HCl (Vistaril) 50 mg PO HSZ PRN PRN Reason: Insomnia Stop: 12/05/19 23:48 Hydroxyzine HCl (Vistaril) 25 mg PO Q4H PRN PRN Reason: Anxiety Stop: 12/05/19 23:48 Lamotrigine (Lamictal) 25 mg PO QAM [facility] Stop: 12/07/19 08:59 Last Admin: 11/10/19 07:34 Dose: 25 mg Documented by: Lorazepam (Ativan) 2 mg IM Q6H PRN PRN Reason: Agitation Stop: 12/07/19 12:34 Lorazepam (Ativan) 1 mg PO Q6H PRN PRN Reason: agitation/aggression Stop: 12/07/19 13:04 Last Admin: 11/08/19 09:40 Dose: 1 mg Documented by: Magnesium Hydroxide (Milk Of Magnesia) 30 ml PO DAILY PRN PRN Reason: Constipation Stop: 12/05/19 23:48 Miscellaneous (Remove Nicoderm Patch) 1 ea N/A DAILY@[id number] [facility] Stop: 12/06/19 08:58 Last Admin: 11/10/19 07:34 Dose: Not Given Documented by: Nicotine (Nicoderm Cq) [address] [facility] Stop: 12/06/19 08:59 Last Admin: 11/10/19 07:34 Dose: Not Given Documented by: Olanzapine (Zyprexa Zydis Od) 10 mg PO QAM [facility] Stop: 12/08/19 08:59 Last Admin: 11/10/19 07:32 Dose: 10 mg Documented by: Sodium Chloride (Kent Nasal) 1 - 2 sprays NA PRN PRN PRN Reason: Nasal Dryness/Congestion Stop: 12/05/19 23:48 Mental Health & Subst Abuse Tx Therapist Name of Therapist: None Strain Technician Name of Strain Technician: None Post Discharge Appointments Primary Care Physician Name Of Family Doctor: [facility] - Reid Dennis PA-C Primary Care Provider Appointment Comment: [address], [address], [place] [address] Contact Information Discharge Discharge [address]: [address] [place] [address], [place] [id number] (1) Depression Active/Remission status: currently active Depression Type: major depressive disorder Major depression episode severity: severe Major depression recurrence: single episode Psychotic features: with psychotic features Qualified Code(s): F32.3 - Major depressive disorder, single episode, severe with psychotic features
--- NOTE | 2019-11-11 08:30 | Psychiatric Progress Note ---
Date of Service November 11, 2019 Impression / Recommendations Impression Patient remains severely impaired by his psychiatric symptoms, is confused, a poor historian, and appears paranoid and depressed. The admission was precipitated by the fact that the patient was observed by his neighbors laying in the street in front of his home, was found to be altered in the ER, and endorsed depression and suicidal ideation. His reported he had not been caring for himself for approximately 10 weeks, was increasingly depressed, was not showering, changing his clothes, or performing ADLs. Records from previous emergency room visits over the past several years indicate that the patient has a history of recurrent depression and recurrent suicidal ideation. He also has a history in 2018 or 2019 of taking a deliberate overdose of medication. Treatment nonadherence has been an issue, both in the past and during the period of time leading up to the admission. The patient is demonstrating psychotic features, appears to be responding to internal stimuli as evidenced by his speaking as if to an unseen person in an empty room. Multiple medication changes are being made, including re-titration of lamotrigine as he had been nonadherent with all medications prior to admission, taper off of duloxetine and initiation of escitalopram, and initiation of olanzapine. He is also receiving haloperidol and Lorazepam as needed for agitation, aggression, and sexually inappropriate behavior. He is on a 303 involuntary commitment as of 11/09. Inpatient psychiatric treatment is medically necessary due to the severity of symptoms and risk of harm to both himself and others. (1) Threatening suicide: 11/06/19 -The patient was observed laying in the road in front of his house last evening and he continues to endorse suicidal ideation. -Patient will be closely monitored on suicide precautions 11/09 - Patient denying SI but reporting ongoing depression. (2) Depression: 11/06/19 -The patient has been admitted to the [facility] unit and placed on suicide precautions with close observation. He is also been placed in a medically necessary private room and has been referred for individual, group, and activity therapies and is being encouraged to attend and participate. We will also work to gather additional information from his and will plan to hold a telephonic family meeting if the patient agrees. -Patient's outpatient medications reportedly include lamotrigine 100 mg a day, duloxetine 60 mg a day, hydroxyzine 50 mg once a day "as needed," and aripiprazole 15 mg daily. In the past, he has taken venlafaxine. There is a long history of nonadherence, and it is not clear when the patient took any of these medications. Currently, we do not know when the patient took lamotrigine most recently and we are reluctant to prescribe lamotrigine at 100 mg a day. Instead, we will again lamotrigine at 25 mg a day and titrate as indicated. We will be placed on duloxetine 40 mg a day. (This is lower than his outpatient dose, but, again, he evidently has not been taking it.) As needed hydroxyzine has been ordered. We have decided to hold aripiprazole for the time being in f avor of Zyprexa Zydis starting at 5 mg and titrating as indicated. 11/06 -Patient giving inconsistent self-report regarding thoughts of self-harm but again acknowledges today wish as per HPI -We will continue Cymbalta at reduced dose for now. Certainly this type of presentation seems atypical for psychosis associated with major depressive disorder and I am concerned for increasing his activation -We will need to hold the Lamictal re-titration if he remains noncompliant or sporadically compliant with p.o. medication 11/07 -Discontinue reduced dose of Cymbalta and substitute lexapro 10 mg daily chosen for reduced activation potential as compared to SNRI. 11/08 -Continue escitalopram and lamotrigine titrations. -303 hearing scheduled for tomorrow. Patient indicates willingness for inpatient treatment at this time. 11/09 -303 granted. -Increase escitalopram to 15mg daily to target depression. -Continue lamotrigine and olanzapine. Reviewed fasting labs for monitoring on an atypical antipsychotic: cholesterol 222, remainder WNLs. -Patient not yet able to tolerate groups or a family meeting. He will also need referrals for outpatient mental health treatment. 11/10 -Workup for psychosis and cognitive impairment. Fluid and electrolyte disturbance, infectious process, UTI, substance use, liver disease, and thyroid disease ruled out as part of pre-admission medical work-up; will also check vitamin B12 and folate, and recommend brain MRI as an outpatient. Will need follow-up with PCP. -Continue escitalopram 15 mg, lamotrigine 25 mg, and olanzapine 10 mg at bedtime. Consider reducing the dose of olanzapine in the next 1 to 2 days if he remains excessively somnolent. (3) Psychosis: 11/06 -Patient demonstrating an appropriate sexualized and aggressive behaviors, appears paranoid, bizarre -Admission labs reviewed and essentially unremarkable. Reviewed head CT from 11/05/2019 indicating no acute process. Previous head CT from October 10, 2019 noted patchy white matter hypodensities likely small vessel disease. That CT was checked for worsening tremor. Ne recent etoh use known. Vital signs do not support likelihood of withdrawal. urine tox neg. -Will increase standing olanzapine to 10 mg p.o. tomorrow a.m. -Patient received Haldol 5 mg as needed (in combination with Ativan and Cogentin) for acute agitation not responsive to nonpharmacological interventions today 11/07 -Etiology for acute psychosis remains unclear. Medical work-up at admission not suspicious for obvious etiology for delirium. Nursing reported possible blood in urine however he has been urinating on the floor and obtaining a sample for repeat urinalysis with culture may prove difficult but should be considered -Cannot rule out underlying progressive neurocognitive disorder with stepwise decompensation. Early age of onset, behavior and personality changes greater than memory loss might suggest frontotemporal etiology however more likely mixed etiology with evidence of cerebrovascular disease on most recent neuroimaging and extensive alcohol abuse history. -We will continue to utilize Haldol 5 mg, Ativan 1 mg, Cogentin 1 mg every 6 hours as needed's for acute behavioral disturbance. -Patient has been accepting of medications and unlikely to improve without pharmacotherapy. Due to impaired insight secondary to psychosis, treatment over objection may be necessary and is felt to be appropriate in my clinical opinion -Over the last 24 hours, intensity and frequency of aggression and sexualized behaviors is modestly improved. However, if trend does not continue positively, would recommend consideration for Risperdal as alternative to olanzapine and possibly a Depakote trial as well. 11/08 -Improved behavioral control so far today, continue to utilize PRN medications as these appear to have been beneficial. Continue olanzapine 10 mg at bedtime, and order fasting labs for tomorrow. -Rule out delirium: Reviewed labs which were normal at the time of admission. Have attempted to get a repeat UA, but patient has been unwilling/unable to provide a sample. He denies UTI symptoms. He has had multiple head CTs in the past 2 months which were negative for acute intracranial abnormality. No current signs of alcohol withdrawal. Differential includes psychotic mood disorder, dementing process, occult medical issue. -Continue private room until he improves and is able to maintain behavioral control. Excused from groups until able to demonstrate appropriate behavior. -Will need family meeting with and referrals for outpatient treatment once able to tolerate these discussions. 11/10 -Reviewed fasting labs; glucose 91, FLP notable for cholesterol 222. Inventory Assets Strengths: Supportive family. Positive work history in the past. The record indicates that there has been a favorable response to treatment previously. Needs: Improved ability to cooperate with treatment. Adherence with psychiatric medications. Resolution of psychosis. Stabilization of mood. Risk Factors Assessment Male: Yes : Yes Do You Have Access To A Gun?: Yes (The patient denies that there are guns in his home. However, the old records indicate that at least in the past there were guns. This will need to be investigated further.) Health Problems: Yes Mental Health Diagnoses: Yes Substance Use Disorders: No Previous Attempt: Yes (Details of the previous attempt are not known at this time., Other than the attempt reportedly occurred within the past year or 2 and consisted of his swallowing a toxic overdose.) Family History of Suicide: Yes Previous Psychiatric Hospitalization: Yes Hopelessness: Yes Smoker: Yes Protective Factors Assessment Congregation Beliefs: No : Yes Responsible for Young Children: No Employed: No (lost job a year ago) Stable Relationships: Yes Supportive Family: Yes Good Rapport with Provider: No Absence of Any Risk Factors Above: No Interval History Identifying Information FIORDALIZA NAZARIO is a 59-year-old M who currently lives in [place], [place] with his . He has a history of recurrent episodes of major depression. He was admitted on 11/05/19 23:05 on a 201 voluntary commitment for altered mental status after his neighbors observed him laying down in the middle of the road in front of his house. He was placed on a 302 after he became aggressive with staff, and is on a 303 as of 11/09. Chief Complaint "Alright". Review of Systems Sleep Information Total Hours of Sleep: 9 Sleep Comments: pt on q-15 minute checks Meal Information Percent Meal Consumed - Breakfast: 0 Percent Meal Consumed - Lunch: 10 Percent Meal Consumed - Dinner: 0 Subjective Subjective Patient was seen & assessed and interval progress reviewed with treatment team. Staff report he refused food yesterday, was in bed all day, but ate a banana and crackers this morning. He had to be encouraged to drink fluids. He is taking medications as prescribed, and has not had aggressive behavior. He has not been attending groups nor showered, and is still wearing the paper scrubs from the ER. On my assessment, he was seated in his bed, where he is resting. He is minimally engaged in the assessment, but able to wake enough to answer questions briefly. Answers are typically 1-2 words or mumbled answers. He states mood is depressed, but denies suicidality and feels safe. He is unable to identify goals, and when asked if he would be willing to speak to his or mother today, does not respond. He was informed that they have been calling wanting to talk to him, and that we would like to have a family meeting. Appetite remains poor, and he has not eaten any of his breakfast, although he did have a snack in the [employer] hours. He reports feeling improved from admission. Physical Exam Psychiatric Somnolent, minimally engaged. Appears older than stated age, thin and unkempt, dressed in paper scrubs Eye Contact: + poor eye contact No eye contact, only opens eyes briefly Motor Behavior: + psychomotor retardation Minimal, mumbling Affect: + depressed affect, + constricted affect and mood congruent with affect Mood: + depressed mood Thought Process: + concrete thought process Difficult to assess due to paucity of speech Suicidal Thoughts: denies suicidal thoughts Homicidal Thoughts: denies homicidal thoughts Hallucinations: no auditory hallucinations Cognition: + recent memory not intact, + attention not intact and + language not intact Insight: + poor insight Judgement: + poor judgement Vital Signs (Past 24 Hours) Last Vital Signs Temp 36.6 C 11/11/19 06:30 Pulse 60 11/11/19 06:30 Resp 16 11/11/19 06:30 BP 112/85 11/11/19 06:30 Pulse Ox 97 11/05/19 23:34 Results & Data ([facility]) Laboratory Results Laboratory Results - last 24 hr 11/10/19 07:31 Fasting Glucose 91 Triglycerides 85 Cholesterol 222 H LDL Cholesterol, Calc 161 VLDL Cholesterol, Calc 17 HDL Cholesterol 44 Cholesterol/HDL Ratio 5 Current Inpatient Medications Current Inpatient Medications: Current Inpatient Medications Acetaminophen (Tylenol) 650 mg PO Q4H PRN PRN Reason: Headache or Minor Fever Stop: 12/05/19 23:48 Al Hydrox/Mg Hydrox/Simethicone (Maalox) 30 ml PO Q4H PRN PRN Reason: GI Upset Stop: 12/05/19 23:48 Benztropine Mesylate (Cogentin) 1 mg IM Q6H PRN PRN Reason: dystonia Stop: 12/07/19 12:17 Benztropine Mesylate (Cogentin) 1 mg PO Q6H PRN PRN Reason: dystonia Stop: 12/07/19 12:20 Last Admin: 11/08/19 09:40 Dose: 1 mg Documented by: Bismuth Subsalicylate (Kaopectate) 15 ml PO PRN PRN PRN Reason: Loose Stool Stop: 12/05/19 23:48 Escitalopram Oxalate (Lexapro Tab) [facility] [place] Stop: 12/11/19 08:59 Haloperidol (Haldol) 5 mg PO Q6H PRN PRN Reason: acute agitation/aggression Stop: 12/07/19 12:19 Last Admin: 11/08/19 09:40 Dose: 5 mg Documented by: Haloperidol Lactate (Haldol) 5 mg IM Q6H PRN PRN Reason: aggression/agitation Stop: 12/07/19 12:13 Hydroxyzine HCl (Vistaril) 50 mg PO HSZ PRN PRN Reason: Insomnia Stop: 12/05/19 23:48 Hydroxyzine HCl (Vistaril) 25 mg PO Q4H PRN PRN Reason: Anxiety Stop: 12/05/19 23:48 Lamotrigine (Lamictal) 25 mg PO [facility] Stop: 12/07/19 08:59 Last Admin: 11/10/19 07:34 Dose: 25 mg Documented by: Lorazepam (Ativan) 2 mg IM Q6H PRN PRN Reason: Agitation Stop: 12/07/19 12:34 Lorazepam (Ativan) 1 mg PO Q6H PRN PRN Reason: agitation/aggression Stop: 12/07/19 13:04 Last Admin: 11/08/19 09:40 Dose: 1 mg Documented by: Magnesium Hydroxide (Milk Of Magnesia) 30 ml PO DAILY PRN PRN Reason: Constipation Stop: 12/05/19 23:48 Miscellaneous (Remove Nicoderm Patch) 1 ea N/A DAILY@[id number] [facility] Stop: 12/06/19 08:58 Last Admin: 11/10/19 07:34 Dose: Not Given Documented by: Nicotine (Nicoderm Cq) 7 mg TD QAM MICHEL Stop: 12/06/19 08:59 Last Admin: 11/10/19 07:34 Dose: Not Given Documented by: Olanzapine (Zyprexa Zydis Od) 10 mg PO QAM MICHEL Stop: 12/08/19 08:59 Last Admin: 11/10/19 07:32 Dose: 10 mg Documented by: Sodium Chloride (Riva Nasal) 1 - 2 sprays NA PRN PRN PRN Reason: Nasal Dryness/Congestion Stop: 12/05/19 23:48 Mental Health & Subst Abuse Tx Therapist Name of Therapist: None Nascar Racer Name of Nascar Racer: None Post Discharge Appointments Primary Care Physician Name Of Family Doctor: [facility] - Reid Dennis PA-C Primary Care Provider Appointment Comment: [address] [facility], [address], [place] [address] Contact Information Discharge Discharge [address]: [address] [place] [address] [place] [id number] (1) Depression Active/Remission status: currently active Depression Type: major depressive disorder Major depression episode severity: severe Major depression recurrence: single episode Psychotic features: with psychotic features Qualified Code(s): F32.3 - Major depressive disorder, single episode, severe with psychotic features
[2019-11-11] MEDS: ESCITALOPRAM OXALATE 10 MG TAB PO SCH (10:11)
[2019-11-11] MEDS: lamoTRIgine 25 MG TAB PO SCH (10:11)
[2019-11-11] MEDS: OLANZAPINE ZYDIS 10 MG ORALLY DIS. TAB PO SCH (10:12)
[2019-11-11] MEDS: NICOTINE 7 MG/24 HR TDSY TD SCH (10:14)
[2019-11-12 09:05] LABS: Basophils # (auto) 0.01 K/uL (0-0.2); Basophils % (auto) 0.2 %; Eosinophils % (auto) 1.7 %; Hematocrit (blood only) 47.9 % (42-52); Hemoglobin 16.7 g/dL (14.0-18.0); Immature Granulocytes # (auto) 0.01 K/uL (0.00-0.02); Immature Granulocytes % (auto) 0.2 %; Lymphocytes # (auto) 2.27 K/uL (1.2-3.4); Lymphocytes % (auto) 39.7 %; Mean Corpuscular Hemoglobin 30.4 pg (25-34); Mean Corpuscular Hgb Conc 34.9 g/dL (32-36); Mean Corpuscular Volume 87.2 fL (80-100); Mean Platelet Volume 9.2 fL (7.4-10.4); Monocytes # (auto) 0.45 K/uL (0.11-0.59); Monocytes % (auto) 7.9 %; Neutrophils # (auto) 2.88 K/uL (1.4-6.5); Neutrophils % (auto) 50.3 %; Platelet Count 181 K/uL (130-400); RDW Coefficient of Variation 12.8 % (11.5-14.5); RDW Standard Deviation 41.1 fL (36.4-46.3); Red Blood Count 5.49 M/uL (4.7-6.1); White Blood Count 5.72 K/uL (4.8-10.8)
[2019-11-12] MEDS: ESCITALOPRAM OXALATE 10 MG TAB PO SCH (09:12)
[2019-11-12] MEDS: lamoTRIgine 25 MG TAB PO SCH (09:12)
[2019-11-12] MEDS: NICOTINE 7 MG/24 HR TDSY TD SCH (09:13)
[2019-11-12] MEDS: OLANZAPINE ZYDIS 10 MG ORALLY DIS. TAB PO SCH (09:13)
[2019-11-12 09:21] LABS: Albumin Level 3.6 gm/dl (3.4-5.0); Calcium 9.5 mg/dl (8.5-10.1); Creatinine Clr Calc Pharmacy 64.1 ml/min; Est GFR (African American) 74.4; Est GFR (Non-African American) 64.2
[2019-11-12 09:24] LABS: Albumin Globulin Ratio 0.9 (0.9-2); Bilirubin,Total 0.6 mg/dl (0.2-1); Globulin 3.8 gm/dl (2.5-4.0); Total Protein 7.4 gm/dl (6.4-8.2)
--- NOTE | 2019-11-12 11:03 | Psychiatric Progress Note ---
Date of Service November 12, 2019 Impression / Recommendations Impression Patient remains severely impaired by his psychiatric symptoms, is confused, a poor historian, paranoid and depressed. The admission was precipitated by the patient laying in the street in front of his home, was found to be altered in the ER, and endorsed depression, paranoia, was responding to hallucinations, and suicidal ideation. His reported he had not been caring for himself for approximately 10 weeks, was increasingly depressed, was not showering, changing his clothes, or performing ADLs. Records from previous emergency room visits over the past several years indicate that the patient has a history of recurrent depression and recurrent suicidal ideation. He also has a history in 2018 or 2019 of taking a deliberate overdose of medication. Treatment nonadherence has been an issue, both in the past and during the period of time leading up to the admission. Multiple medication changes are being made, including re-titration of lamotrigine as he had been nonadherent with all medications prior to admission, taper off of duloxetine and initiation of escitalopram, and initiation of olanzapine. He also received haloperidol and Lorazepam as needed for agitation, aggression, and sexually inappropriate behavior. He is on a 303 involuntary commitment as of 11/09. Inpatient psychiatric treatment is medically necessary due to the severity of symptoms and risk of harm to both himself and others. (1) Threatening suicide: 11/06/19 -The patient was observed laying in the road in front of his house last evening and he continues to endorse suicidal ideation. -Patient will be closely monitored on suicide precautions 11/09 - Patient denying SI but reporting ongoing depression. 11/11 -Staff to contact to discuss recommendations to either remove or secure guns so the patient does not have access, given patient's cognitive impairment, depression, history of suicide attempt, and recent SI. (2) Depression: 11/06/19 -The patient has been admitted to the [facility] behavioral health unit and placed on suicide precautions with close observation. He is also been placed in a medically necessary private room and has been referred for individual, group, and activity therapies and is being encouraged to attend and participate. We will also work to gather additional information from his and will plan to hold a telephonic family meeting if the patient agrees. -Patient's outpatient medications reportedly include lamotrigine 100 mg a day, duloxetine 60 mg a day, hydroxyzine 50 mg once a day "as needed," and aripiprazole 15 mg daily. In the past, he has taken venlafaxine. There is a long history of nonadherence, and it is not clear when the patient took any of these medications. Currently, we do not know when the patient took lamotrigine most recently and we are reluctant to prescribe lamotrigine at 100 mg a day. Instead, we will again lamotrigine at 25 mg a day and titrate as indicated. We will be placed on duloxetine 40 mg a day. (This is lower than his outpatient dose, but, again, he evidently has not been taking it.) As needed hydroxyzine has been ordered. We have decided to hold aripiprazole for the time being in favor of Zyprexa Zydis starting at 5 mg and titrating as indicated. 11/06 -Patient giving inconsistent self-report regarding thoughts of self-harm but again acknowledges today wish as per HPI -We will continue Cymbalta at reduced dose for now. Certainly this type of presentation seems atypical for psychosis associated with major depressive disorder and I am concerned for increasing his activation -We will need to hold the Lamictal re-titration if he remains noncompliant or sporadically compliant with p.o. medication 11/07 -Discontinue reduced dose of Cymbalta and substitute lexapro 10 mg daily chosen for reduced activation potential as compared to SNRI. 11/08 -Continue escitalopram and lamotrigine titrations. -303 hearing scheduled for tomorrow. Patient indicates willingness for inpatient treatment at this time. 11/09 -303 granted. -Increase escitalopram to 15mg daily to target depression. -Continue lamotrigine and olanzapine. Reviewed fasting labs for monitoring on an atypical antipsychotic: cholesterol 222, remainder WNLs. -Patient not yet able to tolerate groups or a family meeting. He will also need referrals for outpatient mental health treatment. 11/10 -Workup for psychosis and cognitive impairment. Fluid and electrolyte disturbance, infectious process, UTI, substance use, liver disease, and thyroid disease ruled out as part of pre-admission medical work-up; will also check vitamin B12, and recommend brain MRI as an outpatient. Will need follow-up with PCP. -Continue escitalopram 15 mg, lamotrigine 25 mg, and olanzapine 10 mg at bedtime. Consider reducing the dose of olanzapine in the next 1 to 2 days if he remains excessively somnolent. 11/11 -Patient reports improved mood but ongoing paranoia, thoughts that the world is ending. He continues to isolate in bed, has not yet showered, and has very poor grooming and hygiene. Encouraged him to be out of bed, participating in treatment. -Continue medications as above. -Patient appears confused and cognitively impaired, and given staff reports of poor fluid intake and rust colored urine, ordered UA but he has not yet provided a sample. Also rechecked CMP and CBC for signs of infection given AMS and hypotension, but lab work was normal. B12 level 889. (3) Psychosis: 11/06 -Patient demonstrating an appropriate sexualized and aggressive behaviors, appears paranoid, bizarre -Admission labs reviewed and essentially unremarkable. Reviewed head CT from 11/05/2019 indicating no acute process. Previous head CT from October 10, 2019 noted patchy white matter hypodensities likely small vessel disease. That CT was checked for worsening tremor. Ne recent etoh use known. Vital signs do not support likelihood of withdrawal. urine tox neg. -Will increase standing olanzapine to 10 mg p.o. tomorrow a.m. -Patient received Haldol 5 mg as needed (in combination with Ativan and Cogentin) for acute agitation not responsive to nonpharmacological interventions today 11/07 -Etiology for acute psychosis remains unclear. Medical work-up at admission not suspicious for obvious etiology for delirium. Nursing reported possible blood in urine however he has been urinating on the floor and obtaining a sample for repeat urinalysis with culture may prove difficult but should be considered -Cannot rule out underlying progressive neurocognitive disorder with stepwise decompensation. Early age of onset, behavior and personality changes greater than memory loss might suggest frontotemporal etiology however more likely mixed etiology with evidence of cerebrovascular disease on most recent neuroimaging and extensive alcohol abuse history. -We will continue to utilize Haldol 5 mg, Ativan 1 mg, Cogentin 1 mg every 6 hours as needed's for acute behavioral disturbance. -Patient has been accepting of medications and unlikely to improve without pharmacotherapy. Due to impaired insight secondary to psychosis, treatment over objection may be necessary and is felt to be appropriate in my clinical opinion -Over the last 24 hours, intensity and frequency of aggression and sexualized behaviors is modestly improved. However, if trend does not continue positively, would recommend consideration for Risperdal as alternative to olanzapine and possibly a Depakote trial as well. 11/08 -Improved behavioral control so far today, continue to utilize PRN medications as these appear to have been beneficial. Continue olanzapine 10 mg at bedtime, and order fasting labs for tomorrow. -Rule out delirium: Reviewed labs which were normal at the time of admission. Have attempted to get a repeat UA, but patient has been unwilling/unable to provide a sample. He denies UTI symptoms. He has had multiple head CTs in the past 2 months which were negative for acute intracranial abnormality. No current signs of alcohol withdrawal. Differential includes psychotic mood disorder, dementing process, occult medical issue. -Continue private room until he improves and is able to maintain behavioral control. Excused from groups until able to demonstrate appropriate behavior. -Will need family meeting with and referrals for outpatient treatment once able to tolerate these discussions. 11/10 -Reviewed fasting labs; glucose 91, FLP notable for cholesterol 222. Inventory Assets Strengths: Supportive family. Positive work history in the past. The record indicates that there has been a favorable response to treatment previously. Needs: Improved ability to cooperate with treatment. Adherence with psychiatric medications. Resolution of psychosis. Stabilization of mood. Risk Factors Assessment Male: Yes : Yes Do You Have Access To A Gun?: Yes (The patient denies that there are guns in his home. However, the old records indicate that at least in the past there were guns. This will need to be investigated further.) Health Problems: Yes Mental Health Diagnoses: Yes Substance Use Disorders: No Previous Attempt: Yes (Details of the previous attempt are not known at this time., Other than the attempt reportedly occurred within the past year or 2 and consisted of his swallowing a toxic overdose.) Family History of Suicide: Yes Previous Psychiatric Hospitalization: Yes Hopelessness: Yes Smoker: Yes Protective Factors Assessment Cheondoism Beliefs: No : Yes Responsible for Young Children: No Employed: No (lost job a year ago) Stable Relationships: Yes Supportive Family: Yes Good Rapport with Provider: No Absence of Any Risk Factors Above: No Interval History Identifying Information FIORDALIZA NAZARIO is a 59-year-old M who currently lives in [place], [place] with his . He has a history of recurrent episodes of major depression. He was admitted on 11/05/19 23:05 on a 201 voluntary commitment for altered mental status after his neighbors observed him laying down in the middle of the road in front of his house. He was placed on a 302 after he became aggressive with staff, and is on a 303 as of 11/09. Chief Complaint "Fine". Review of Systems Sleep Information Total Hours of Sleep: 6.75 Sleep Comments: pt on q-15 minute checks Meal Information Percent Meal Consumed - Breakfast: 0 Percent Meal Consumed - Lunch: 0 Percent Meal Consumed - Dinner: 5 Nutrition Comment: pt. drank 4oz juice and ate a few dry cherrios Subjective Subjective Patient was seen & assessed and interval progress reviewed with nursing and social work. Staff report he remains in bed all day yesterday, had to be encouraged to eat and drink, refused to shower or attend groups. In the middle of the night, he yelled out for help, and when staff entered his room he was sitting on the edge of his bed. He ate a snack, and shortly afterwards loud singing was heard coming from his room. When staff responded, he told the female nurse to take her clothes off. This morning, he remains in bed. On my assessment, he states that his mood is "all right, better." He states that he is eating and drinking "what ever they give me," and does not feel that his intake is decreased. He endorses paranoia, stating "the way things are, the end of the world." He thinks that this is happening "right now." When asked what makes him believe the world is ending, he says "you being here now." He is unable to explain this further. He is unable to describe a typical day when he is at home, saying "this." When asked what kind of things he enjoys to do, he initially cannot answer, but eventually says he likes crossword puzzle books. He agrees to try to get out of bed and attend groups today, but makes no movement to do so even with encouragement. Nursing staff spoke with his mother for collateral information (his 2 brothers were also present): His family is concerned about him and wants to help support him. Patient has been a recluse for approximately 20 years, and when he talks to other people call, typically only says 1-2 words.. His brother and mother both live within 10 miles of the patient, but only see him about once a year. 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 His family was not aware of any past episodes of aggressive or sexually inappropriate behavior. They reported that his stepfather this past weekend, and the family is currently together planning the . They requested a Zoom meeting with the patient to inform him of the . Physical Exam Psychiatric Orientation: alert and cooperative Poor historian Appears older than stated age, thin, unkempt, long hair and ornelas, still wearing paper scrubs from the ER on hospital day #7. Lying in bed, awake, in no acute distress Limited eye contact Occasional lip smacking Minimal speech, mumbles at times Affect: + blunted affect "All right, better." Thought Process: + concrete thought process Thought Content: + paranoid Believes the world is ending, cannot explain why Suicidal Thoughts: denies suicidal thoughts Homicidal Thoughts: denies homicidal thoughts Hallucinations: no auditory hallucinations Cognition: + recent memory not intact, + remote memory not intact and + attention not intact Estimated Intelligence: + below average estimated intelligence Insight: + limited insight Judgement: + limited judgement Vital Signs (Past 24 Hours) Last Vital Signs Temp 36.5 C 11/12/19 07:00 Pulse 70 11/12/19 07:02 Resp 18 11/12/19 07:00 BP 97/66 L 11/12/19 07:02 Pulse Ox 95 11/11/19 19:47 Results & Data ([facility]) Laboratory Results Laboratory Results - last 24 hr 11/11/19 11/12/19 11/12/19 11:17 08:48 08:48 WBC 5.72 RBC 5.49 Hgb 16.7 Hct 47.9 MCV 87.2 MCH 30.4 MCHC 34.9 RDW Std Deviation 41.1 RDW Coeff of Bhavesh 12.8 Plt Count 181 MPV 9.2 Immature Gran % (Auto) 0.2 Neut % (Auto) 50.3 Lymph % (Auto) 39.7 Lea % (Auto) 7.9 Eos % (Auto) 1.7 Baso % (Auto) 0.2 Neut # (Auto) 2.88 Lymph # (Auto) 2.27 Lea # (Auto) 0.45 Eos # (Auto) 0.10 Baso # (Auto) 0.01 Immature Gran # (Auto) 0.01 Sodium 141 Potassium 4.0 Chloride 107 Carbon Dioxide 29 Anion Gap 5.0 BUN 23 H Creatinine 1.21 Est Cr Clr Drug Dosing 64.1 Est GFR ( Amer) 74.4 Est GFR (Non-Af Amer) 64.2 BUN/Creatinine Ratio 19.0 Glucose 87 Calcium 9.5 Total Bilirubin 0.6 AST 13 L ALT 19 Alkaline Phosphatase 59 Total Protein 7.4 Albumin 3.6 Globulin 3.8 Albumin/Globulin Ratio 0.9 Vitamin B12 889 Current Inpatient Medications Current Inpatient Medications: Current Inpatient Medications Acetaminophen (Tylenol) 650 mg PO Q4H PRN PRN Reason: Headache or Minor Fever Stop: 12/05/19 23:48 Al Hydrox/Mg Hydrox/Simethicone (Maalox) 30 ml PO Q4H PRN PRN Reason: GI Upset Stop: 12/05/19 23:48 Benztropine Mesylate (Cogentin) 1 mg IM Q6H PRN PRN Reason: dystonia Stop: 12/07/19 12:17 Benztropine Mesylate (Cogentin) 1 mg PO Q6H PRN PRN Reason: dystonia Stop: 12/07/19 12:20 Last Admin: 11/08/19 09:40 Dose: 1 mg Documented by: Bismuth Subsalicylate (Kaopectate) 15 ml PO PRN PRN PRN Reason: Loose Stool Stop: 12/05/19 23:48 Escitalopram Oxalate (Lexapro Tab) 15 mg PO QAM [facility] Stop: 12/11/19 08:59 Last Admin: 11/12/19 09:12 Dose: 15 mg Documented by: Haloperidol (Haldol) 5 mg PO Q6H PRN PRN Reason: acute agitation/aggression Stop: 12/07/19 12:19 Last Admin: 11/08/19 09:40 Dose: 5 mg Documented by: Haloperidol Lactate (Haldol) 5 mg IM Q6H PRN PRN Reason: aggression/agitation Stop: 12/07/19 12:13 Hydroxyzine HCl (Vistaril) 50 mg PO HSZ PRN PRN Reason: Insomnia Stop: 12/05/19 23:48 Hydroxyzine HCl (Vistaril) 25 mg PO Q4H PRN PRN Reason: Anxiety Stop: 12/05/19 23:48 Lamotrigine (Lamictal) 25 mg PO QAM [facility] Stop: 12/07/19 08:59 Last Admin: 11/12/19 09:12 Dose: 25 mg Documented by: Lorazepam (Ativan) 2 mg IM Q6H PRN PRN Reason: Agitation Stop: 12/07/19 12:34 Lorazepam (Ativan) 1 mg PO Q6H PRN PRN Reason: agitation/aggression Stop: 12/07/19 13:04 Last Admin: 11/08/19 09:40 Dose: 1 mg Documented by: Magnesium Hydroxide (Milk Of Magnesia) 30 ml PO DAILY PRN PRN Reason: Constipation Stop: 12/05/19 23:48 Miscellaneous (Remove Nicoderm Patch) 1 ea N/A DAILY@0859 [facility] Stop: 12/06/19 08:58 Last Admin: 11/12/19 09:12 Dose: Not Given Documented by: Nicotine (Nicoderm Cq) 7 mg TD QAM [facility] Stop: 12/06/19 08:59 Last Admin: 11/12/19 09:13 Dose: Not Given Documented by: Olanzapine (Zyprexa Zydis Od) 10 mg PO QAM [facility] Stop: 12/08/19 08:59 Last Admin: 11/12/19 09:13 Dose: 10 mg Documented by: Sodium Chloride (Chowan Nasal) 1 - 2 sprays NA PRN PRN PRN Reason: Nasal Dryness/Congestion Stop: 12/05/19 23:48 Mental Health & Subst Abuse Tx Therapist Name of Therapist: None Earth Moving Technician Name of Earth Moving Technician: None Post Discharge Appointments Primary Care Physician Name Of Family Doctor: [facility] Mj Dennis PA-C Primary Care Provider Appointment Comment: [address], [address], [place] [address] Contact Information Discharge Discharge [address]: [address] [place] [address], [place] [id number] (1) Depression Active/Remission status: currently active Depression Type: major depressive disorder Major depression episode severity: severe Major depression recurrence: single episode Psychotic features: with psychotic features Qualified Code(s): F32.3 - Major depressive disorder, single episode, severe with psychotic features
[2019-11-13 07:30] LABS: Appearance Urine Clear (Clear); Blood Urine Negative (Negative); Color Urine Dark Yellow; Glucose Urine UA Negative (Negative); Ketones Urine Negative (Negative); Leukocyte Esterase Urine Negative (Negative); Nitrite Urine Negative (Negative); Protein Urine Negative (Negative); Specific Gravity Urine 1.032 (1.000-1.030); Urobilinogen Urine Negative (Negative)
[2019-11-13 07:38] LABS: Bilirubin Urine Negative (Negative); Ictotest Urine Negative (Negative)
[2019-11-13] MEDS: OLANZAPINE ZYDIS 10 MG ORALLY DIS. TAB PO SCH (09:16)
[2019-11-13] MEDS: ESCITALOPRAM OXALATE 10 MG TAB PO SCH (09:16)
[2019-11-13] MEDS: lamoTRIgine 25 MG TAB PO SCH (09:17)
[2019-11-13] MEDS: NICOTINE 7 MG/24 HR TDSY TD SCH (09:17)
[2019-11-13] MEDS ORDERED: OLANZAPINE ZYDIS 5 MG ORALLY DIS. TAB PO STA (10:13)
--- NOTE | 2019-11-13 12:10 | Psychiatric Progress Note ---
Date of Service November 13, 2019 Impression / Recommendations Impression Patient remains severely impaired by his psychiatric symptoms, is confused, a poor historian, paranoid and depressed. The admission was precipitated by the patient laying in the street in front of his home, was found to be altered in the ER, and endorsed depression, paranoia, was responding to hallucinations, and suicidal ideation. His reported he had not been caring for himself for approximately 10 weeks, was increasingly depressed, was not showering, changing his clothes, or performing ADLs. Records from previous emergency room visits over the past several years indicate that the patient has a history of recurrent depression and recurrent suicidal ideation. He also has a history in 2018 or 2019 of taking a deliberate overdose of medication. Treatment nonadherence has been an issue, both in the past and during the period of time leading up to the admission. Multiple medication changes are being made, including re-titration of lamotrigine as he had been nonadherent with all medications prior to admission, taper off of duloxetine and initiation of escitalopram, and initiation of olanzapine. He also received haloperidol and Lorazepam as needed for agitation, aggression, and sexually inappropriate behavior. He is on a 303 involuntary commitment as of 11/09. Inpatient psychiatric treatment is medically necessary due to the severity of symptoms and risk of harm to both himself and others. Reviewed. (1) Threatening suicide: 11/06/19 -The patient was observed laying in the road in front of his house last evening and he continues to endorse suicidal ideation. -Patient will be closely monitored on suicide precautions 11/09 - Patient denying SI but reporting ongoing depression. 11/11 -Staff to contact to discuss recommendations to either remove or secure guns so the patient does not have access, given patient's cognitive impairment, depression, history of suicide attempt, and recent SI. 11/12 reviewed. (2) Depression: 11/06/19 -The patient has been admitted to the [facility] behavioral health unit and placed on suicide precautions with close observation. He is also been placed in a medically necessary private room and has been referred for individual, group, and activity therapies and is being encouraged to attend and participate. We will also work to gather additional information from his and will plan to hold a telephonic family meeting if the patient agrees. -Patient's outpatient medications reportedly include lamotrigine 100 mg a day, duloxetine 60 mg a day, hydroxyzine 50 mg once a day "as needed," and aripiprazole 15 mg daily. In the past, he has taken venlafaxine. There is a long history of nonadherence, and it is not clear when the patient took any of these medications. Currently, we do not know when the patient took lamotrigine most recently and we are reluctant to prescribe lamotrigine at 100 mg a day. Instead, we will again lamotrigine at 25 mg a day and titrate as indicated. We will be placed on duloxetine 40 mg a day. (This is lower than his outpatient dose, but, again, he evidently has not been taking it.) As needed hydroxyzine has been ordered. We have decided to hold aripiprazole for the time being in favor of Zyprexa Zydis starting at 5 mg and titrating as indicated. 11/06 -Patient giving inconsistent self-report regarding thoughts of self-harm but again acknowledges today wish as per HPI -We will continue Cymbalta at reduced dose for now. Certainly this type of presentation seems atypical for psychosis associated with major depressive disorder and I am concerned for increasing his activation -We will need to hold the Lamictal re-titration if he remains noncompliant or sporadically compliant with p.o. medication 11/07 -Discontinue reduced dose of Cymbalta and substitute lexapro 10 mg daily chosen for reduced activation potential as compared to SNRI. 11/08 -Continue escitalopram and lamotrigine titrations. -303 hearing scheduled for tomorrow. Patient indicates willingness for inpatient treatment at this time. 11/09 -303 granted. -Increase escitalopram to 15mg daily to target depression. -Continue lamotrigine and olanzapine. Reviewed fasting labs for monitoring on an atypical antipsychotic: cholesterol 222, remainder WNLs. -Patient not yet able to tolerate groups or a family meeting. He will also need referrals for outpatient mental health treatment. 11/10 -Workup for psychosis and cognitive impairment. Fluid and electrolyte disturbance, infectious process, UTI, substance use, liver disease, and thyroid disease ruled out as part of pre-admission medical work-up; will also check vitamin B12, and recommend brain MRI as an outpatient. Will need follow-up with PCP. -Continue escitalopram 15 mg, lamotrigine 25 mg, and olanzapine 10 mg at bedtime. Consider reducing the dose of olanzapine in the next 1 to 2 days if he remains excessively somnolent. 11/11 -Patient reports improved mood but ongoing paranoia, thoughts that the world is ending. He continues to isolate in bed, has not yet showered, and has very poor grooming and hygiene. Encouraged him to be out of bed, participating in treatment. -Continue medications as above. -Patient appears confused and cognitively impaired, and given staff reports of poor fluid intake and rust colored urine, ordered UA but he has not yet provided a sample. Also rechecked CMP and CBC for signs of infection given AMS and hypotension, but lab work was normal. B12 level 889. 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 Will shift Zyprexa to hs dosing and increase to 15 mg daily with attempt to increase activity during the day as no evidence of disinhibition yesterday and poor PO. Add boost and change diet to more soft foods. May need formal Is and Os. Consider ECT referral though he would be unable to consent at this time and need to further review medical history. (3) Psychosis: 11/06 -Patient demonstrating an appropriate sexualized and aggressive behaviors, appears paranoid, bizarre -Admission labs reviewed and essentially unremarkable. Reviewed head CT from 11/05/2019 indicating no acute process. Previous head CT from October 10, 2019 noted patchy white matter hypodensities likely small vessel disease. That CT was checked for worsening tremor. Ne recent etoh use known. Vital signs do not support likelihood of withdrawal. urine tox neg. -Will increase standing olanzapine to 10 mg p.o. tomorrow a.m. -Patient received Haldol 5 mg as needed (in combination with Ativan and Cogentin) for acute agitation not responsive to nonpharmacological interventions today 11/07 -Etiology for acute psychosis remains unclear. Medical work-up at admission not suspicious for obvious etiology for delirium. Nursing reported possible blood in urine however he has been urinating on the floor and obtaining a sample for repeat urinalysis with culture may prove difficult but should be considered -Cannot rule out underlying progressive neurocognitive disorder with stepwise decompensation. Early age of onset, behavior and personality changes greater than memory loss might suggest frontotemporal etiology however more likely mixed etiology with evidence of cerebrovascular disease on most recent neuroimaging and extensive alcohol abuse history. -We will continue to utilize Haldol 5 mg, Ativan 1 mg, Cogentin 1 mg every 6 hours as needed's for acute behavioral disturbance. -Patient has been accepting of medications and unlikely to improve without pharmacotherapy. Due to impaired insight secondary to psychosis, treatment over objection may be necessary and is felt to be appropriate in my clinical opinion -Over the last 24 hours, intensity and frequency of aggression and sexualized behaviors is modestly improved. However, if trend does not continue positively, would recommend consideration for Risperdal as alternative to olanzapine and possibly a Depakote trial as well. 11/08 -Improved behavioral control so far today, continue to utilize PRN medications as these appear to have been beneficial. Continue olanzapine 10 mg at bedtime, and order fasting labs for tomorrow. -Rule out delirium: Reviewed labs which were normal at the time of admission. Have attempted to get a repeat UA, but patient has been unwilling/unable to pr ovide a sample. He denies UTI symptoms. He has had multiple head CTs in the past 2 months which were negative for acute intracranial abnormality. No current signs of alcohol withdrawal. Differential includes psychotic mood disorder, dementing process, occult medical issue. -Continue private room until he improves and is able to maintain behavioral control. Excused from groups until able to demonstrate appropriate behavior. -Will need family meeting with and referrals for outpatient treatment once able to tolerate these discussions. 11/10 -Reviewed fasting labs; glucose 91, FLP notable for cholesterol 222. 7/3 as above. Inventory Assets Strengths: Supportive family. Positive work history in the past. The record indicates that there has been a favorable response to treatment previously. Needs: Improved ability to cooperate with treatment. Adherence with psychiatric medications. Resolution of psychosis. Stabilization of mood. Risk Factors Assessment Male: Yes : Yes Do You Have Access To A Gun?: Yes (The patient denies that there are guns in his home. However, the old records indicate that at least in the past there were guns. This will need to be investigated further.) Health Problems: Yes Mental Health Diagnoses: Yes Substance Use Disorders: No Previous Attempt: Yes (Details of the previous attempt are not known at this time., Other than the attempt reportedly occurred within the past year or 2 and consisted of his swallowing a toxic overdose.) Family History of Suicide: Yes Previous Psychiatric Hospitalization: Yes Hopelessness: Yes Smoker: Yes Protective Factors Assessment Congregational Beliefs: No : Yes Responsible for Young Children: No Employed: No (lost job a year ago) Stable Relationships: Yes Supportive Family: Yes Good Rapport with Provider: No Absence of Any Risk Factors Above: No Interval History Identifying Information FIORDALIZA NAZARIO is a 59-year-old M who currently lives in [place], [place] with his . He has a history of recurrent episodes of major depression. He was admitted on 11/05/19 23:05 on a 201 voluntary commitment for altered mental status after his neighbors observed him laying down in the middle of the road in front of his house. He was placed on a 302 after he became aggressive with sta ff, and is on a 303 as of 11/09. Reviewed. Chief Complaint "I'm fine". Review of Systems Sleep Information Total Hours of Sleep: 8.75 Sleep Comments: pt on q-15 minute checks Meal Information Percent Meal Consumed - Breakfast: 10 Percent Meal Consumed - Lunch: 25 Percent Meal Consumed - Dinner: 5 Nutrition Comment: pt. ate cookie and fluids only Subjective Subjective Patient was seen & assessed and interval progress reviewed with treatment team. Staff reports much of day sleeping/in bed. He is reportedly quite reclusive at baseline. No recent comments about being but eating very poorly and hasn't showered/changed from paper scrubs. Reveiwed labs from yesterday, increase in BUN/Cr. Weight decreased from admission. Physical Exam Psychiatric Orientation: oriented to person Apperance: + disheveled Eye Contact: + poor eye contact suckinig motion of bottom lip, doesn't have dentures, denies dry mouth. non-spontaneous, rote Affect: + depressed affect Mood: + depressed mood Thought Process: + incoherent thought process Thought Content: + delusions (likely, difficult to delineate) he is unable to answer meaningful questions about mood or safety planning, remains on MNPR in [place]. Homicidal Thoughts: denies homicidal thoughts does not answer, does not appear to be responding to internal stimuli Cognition: + attention not intact Insight: + severely impaired insight Judgement: + severely impaired judgement Vital Signs (Past 24 Hours) Last Vital Signs Temp 36.5 C 11/13/19 06:00 Pulse 56 L 11/13/19 06:00 Resp 18 11/13/19 06:00 BP 103/73 11/13/19 06:00 Pulse Ox 95 11/11/19 19:47 Results & Data ([facility]) Laboratory Results Laboratory Results - last 24 hr 11/13/19 07:10 Urine Color Dark Yellow Urine Appearance Clear Urine pH 5.0 Ur Specific Gepp 1.032 H Urine Protein Negative Urine Glucose (UA) Negative Urine Ketones Negative Urine Blood Negative Urine Nitrite Negative Urine Bilirubin Negative Urine Urobilinogen Negative Ur Leukocyte Esterase Negative Current Inpatient Medications Current Inpatient Medications: Current Inpatient Medications Acetaminophen (Tylenol) 650 mg PO Q4H PRN PRN Reason: Headache or Minor Fever Stop: 12/05/19 23:48 Al Hydrox/Mg Hydrox/Simethicone (Maalox) 30 ml PO Q4H PRN PRN Reason: GI Upset Stop: 12/05/19 23:48 Benztropine Mesylate (Cogentin) 1 mg IM Q6H PRN PRN Reason: dystonia Stop: 12/07/19 12:17 Benztropine Mesylate (Cogentin) 1 mg PO Q6H PRN PRN Reason: dystonia Stop: 12/07/19 12:20 Last Admin: 11/08/19 09:40 Dose: 1 mg Documented by: Bismuth Subsalicylate (Kaopectate) 15 ml PO PRN PRN PRN Reason: Loose Stool Stop: 12/05/19 23:48 Escitalopram Oxalate ([facility]apro Tab) [facility] Stop: 12/11/19 08:59 Last Admin: 11/13/19 09:16 Dose: 15 mg Documented by: Haloperidol (Haldol) 5 mg PO Q6H PRN PRN Reason: acute agitation/aggression Stop: 12/07/19 12:19 Last Admin: 11/08/19 09:40 Dose: 5 mg Documented by: Haloperidol Lactate (Haldol) 5 mg IM Q6H PRN PRN Reason: aggression/agitation Stop: 12/07/19 12:13 Hydroxyzine HCl (Vistaril) 50 mg PO HSZ PRN PRN Reason: Insomnia Stop: 12/05/19 23:48 Hydroxyzine HCl (Vistaril) 25 mg PO Q4H PRN PRN Reason: Anxiety Stop: 12/05/19 23:48 Lamotrigine (Lamictal) 25 mg PO QAM [facility] Stop: 12/07/19 08:59 Last Admin: 11/13/19 09:17 Dose: 25 mg Documented by: Lorazepam (Ativan) 2 mg IM Q6H PRN PRN Reason: Agitation Stop: 12/07/19 12:34 Lorazepam (Ativan) 1 mg PO Q6H PRN PRN Reason: agitation/aggression Stop: 12/07/19 13:04 Last Admin: 11/08/19 09:40 Dose: 1 mg Documented by: Magnesium Hydroxide (Milk Of Magnesia) 30 ml PO DAILY PRN PRN Reason: Constipation Stop: 12/05/19 23:48 Miscellaneous (Remove Nicoderm Patch) 1 ea N/A DAILY@0859 MICHEL Stop: 12/06/19 08:58 Last Admin: 11/13/19 09:17 Dose: Not Given Documented by: Nicotine (Nicoderm Cq) 7 mg TD QAM MICHEL Stop: 12/06/19 08:59 Last Admin: 11/13/19 09:17 Dose: Not Given Documented by: Olanzapine (Zyprexa Zydis Od) 15 mg PO HS MICHEL Stop: 12/14/19 21:59 Sodium Chloride ([place] Nasal) 1 - 2 sprays NA PRN PRN PRN Reason: Nasal Dryness/Congestion Stop: 12/05/19 23:48 Mental Health & Subst Abuse Tx Therapist Name of Therapist: None Ndt Inspector Name of Ndt Inspector: None Post Discharge Appointments Primary Care Physician Name Of Family Doctor: [facility] Mj Dennis PA-C Primary Care Date of Appointment with PCP: 11/25/19 Time of Appointment with PCP: 1:00pm Provider Appointment Comment: [address], [address], [place] [address] Contact Information Discharge Discharge Address: [address] [place] [address] [place] [id number] (1) Depression Active/Remission status: currently active Depression Type: major depressive disorder Major depression episode severity: severe Major depression recurrence: single episode Psychotic features: with psychotic features Qualified Code(s): F32.3 - Major depressive disorder, single episode, severe with psychotic features
[2019-11-14] MEDS: NICOTINE 7 MG/24 HR TDSY TD SCH (10:12)
[2019-11-14] MEDS: lamoTRIgine 25 MG TAB PO SCH (10:14)
[2019-11-14] MEDS: ESCITALOPRAM OXALATE 10 MG TAB PO SCH (10:14)
--- NOTE | 2019-11-14 11:29 | Psychiatric Progress Note ---
Date of Service November 14, 2019 Impression / Recommendations Impression Patient remains severely impaired by his psychiatric symptoms, is confused, a poor historian, paranoid and depressed. The admission was precipitated by the patient laying in the street in front of his home, was found to be altered in the ER, and endorsed depression, paranoia, was responding to hallucinations, and suicidal ideation. His reported he had not been caring for himself for approximately 10 weeks, was increasingly depressed, was not showering, changing his clothes, or performing ADLs. Records from previous emergency room visits over the past several years indicate that the patient has a history of recurrent depression and recurrent suicidal ideation. He also has a history in 2018 or 2019 of taking a deliberate overdose of medication. Treatment nonadherence has been an issue, both in the past and during the period of time leading up to the admission. Multiple medication changes are being made, including re-titration of lamotrigine as he had been nonadherent with all medications prior to admission, taper off of duloxetine and initiation of escitalopram, and initiation of olanzapine. He also received haloperidol and Lorazepam as needed for agitation, aggression, and sexually inappropriate behavior. He is on a 303 involuntary commitment as of 11/09. Inpatient psychiatric treatment is medically necessary due to the severity of symptoms and risk of harm to both himself and others. Reviewed. 11/13--continue current meds and tx plan (full shift Zyprexa to hs tonight), encourage ADLs. Inventory Assets Strengths: Supportive family. Positive work history in the past. The record indicates that there has been a favorable response to treatment previously. Needs: Improved ability to cooperate with treatment. Adherence with psychiatric medications. Resolution of psychosis. Stabilization of mood. Risk Factors Assessment Male: Yes : Yes Do You Have Access To A Gun?: Yes (The patient denies that there are guns in his home. However, the old records indicate that at least in the past there were guns. This will need to be investigated further.) Health Problems: Yes Mental Health Diagnoses: Yes Substance Use Disorders: No Previous Attempt: Yes (Details of the previous attempt are not known at this time., Other than the attempt reportedly occurred within the past year or 2 and consisted of his swallowing a toxic overdose.) Family History of Suicide: Yes Previous Psychiatric Hospitalization: Yes Hopelessness: Yes Smoker: Yes Protective Factors Assessment Latter Day Beliefs: No : Yes Responsible for Young Children: No Employed: No (lost job a year ago) Stable Relationships: Yes Supportive Family: Yes Good Rapport with Provider: No Absence of Any Risk Factors Above: No Interval History Identifying Information FIORDALIZA NAZARIO is a 59-year-old M who currently lives in [place], [place] with his . He has a history of recurrent episodes of major depression. He was admitted on 11/05/19 23:05 on a 201 voluntary commitment for altered mental status after his neighbors observed him laying down in the middle of the road in front of his house. He was placed on a 302 after he became aggressive with staff, and is on a 303 as of 11/09. Reviewed. Chief Complaint "I'm fine, don't care". Review of Systems Sleep Information Total Hours of Sleep: 8.5 Sleep Comments: pt on q-15 minute checks Meal Information Percent Meal Consumed - Breakfast: 10 Percent Meal Consumed - Lunch: 100 Percent Meal Consumed - Dinner: 100 Nutrition Comment: pt drank his strawberry boost Subjective Subjective Patient was seen & assessed and interval progress reviewed with nursing. Ate better yesterday, family brought a hoagie in addition to the diet change to softer foods. Staff report his lip smacking movements were present prior to Zyprexa (essentially on admission). Still has not showered. Family had meeting via Zoom, mother is most effective figure in encouraging hygiene. Family also brought in special shampoo. He doesn't elaborate on any needs but certainly he is more alert this am, sitting up readily to eat. Does not elaborate on his answers. 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 Hallucinations: no auditory hallucinations and no visual hallucinations Cognition: + recent memory not intact Insight: + severely impaired insight Judgement: + severely impaired judgement Vital Signs (Past 24 Hours) Last Vital Signs Temp 36.2 C L 11/14/19 06:46 Pulse 55 L 11/14/19 06:47 Resp 18 11/14/19 06:46 BP 94/62 L 11/14/19 06:47 Pulse Ox 95 11/11/19 19:47 Results & Data ([facility]) Current Inpatient Medications Current Inpatient Medications: Current Inpatient Medications Acetaminophen (Tylenol) 650 mg PO Q4H PRN PRN Reason: Headache or Minor Fever Stop: 12/05/19 23:48 Al Hydrox/Mg Hydrox/Simethicone (Maalox) 30 ml PO Q4H PRN PRN Reason: GI Upset Stop: 12/05/19 23:48 Benztropine Mesylate (Cogentin) 1 mg IM Q6H PRN PRN Reason: dystonia Stop: 12/07/19 12:17 Benztropine Mesylate (Cogentin) 1 mg PO Q6H PRN PRN Reason: dystonia Stop: 12/07/19 12:20 Last Admin: 11/08/19 09:40 Dose: 1 mg Documented by: Bismuth Subsalicylate (Kaopectate) 15 ml PO PRN PRN PRN Reason: Loose Stool Stop: 12/05/19 23:48 Escitalopram Oxalate (Lexapro Tab) 15 mg PO QAM MICHEL Stop: 12/11/19 08:59 Last Admin: 11/14/19 10:14 Dose: 15 mg Documented by: Haloperidol (Haldol) 5 mg PO Q6H PRN PRN Reason: acute agitation/aggression Stop: 12/07/19 12:19 Last Admin: 11/08/19 09:40 Dose: 5 mg Documented by: Haloperidol Lactate (Haldol) 5 mg IM Q6H PRN PRN Reason: aggression/agitation Stop: 12/07/19 12:13 Hydroxyzine HCl (Vistaril) 50 mg PO HSZ PRN PRN Reason: Insomnia Stop: 12/05/19 23:48 Hydroxyzine HCl (Vistaril) 25 mg PO Q4H PRN PRN Reason: Anxiety Stop: 12/05/19 23:48 Lamotrigine (Lamictal) 25 mg PO QAM MICHEL Stop: 12/07/19 08:59 Last Admin: 11/14/19 10:14 Dose: 25 mg Documented by: Lorazepam (Ativan) 2 mg IM Q6H PRN PRN Reason: Agitation Stop: 12/07/19 12:34 Lorazepam (Ativan) 1 mg PO Q6H PRN PRN Reason: agitation/aggression Stop: 12/07/19 13:04 Last Admin: 11/08/19 09:40 Dose: 1 mg Documented by: Magnesium Hydroxide (Milk Of Magnesia) 30 ml PO DAILY PRN PRN Reason: Constipation Stop: 12/05/19 23:48 Miscellaneous (Remove Nicoderm Patch) 1 ea N/A DAILY@0859 [facility] Stop: 12/06/19 08:58 Last Admin: 11/14/19 10:12 Dose: Not Given Documented by: Nicotine (Nicoderm Cq) 7 mg TD QAM [facility] Stop: 12/06/19 08:59 Last Admin: 11/14/19 10:12 Dose: Not Given Documented by: Olanzapine (Zyprexa Zydis Od) 15 mg PO HS MICHEL Stop: 12/14/19 21:59 Sodium Chloride ([place] Nasal) 1 - 2 sprays NA PRN PRN PRN Reason: Nasal Dryness/Congestion Stop: 12/05/19 23:48 Mental Health & Subst Abuse Tx Therapist Name of Therapist: None Transition Of Care Specialist Name of Transition Of Care Specialist: None Post Discharge Appointments Primary Care Physician Name Of Family Doctor: [facility] - Reid Dennis PA-C Primary Care Date of Appointment with PCP: 11/25/19 Time of Appointment with PCP: 1:00pm Provider Appointment Comment: [address], [address], [place] [address] Contact Information Discharge Discharge Address: [address] [place] [address], [place] [id number]
[2019-11-14] MEDS: OLANZAPINE ZYDIS 5 MG ORALLY DIS. TAB PO SCH (21:49)
[2019-11-15] MEDS: NICOTINE 7 MG/24 HR TDSY TD SCH (10:52)
[2019-11-15] MEDS: ESCITALOPRAM OXALATE 10 MG TAB PO SCH (10:52)
[2019-11-15] MEDS: lamoTRIgine 25 MG TAB PO SCH (10:52)
--- NOTE | 2019-11-15 11:08 | Psychiatric Progress Note ---
Date of Service November 15, 2019 Impression / Recommendations Impression Patient remains severely impaired by his psychiatric symptoms, is confused, a poor historian, paranoid and depressed. The admission was precipitated by the patient laying in the street in front of his home, was found to be altered in the ER, and endorsed depression, paranoia, was responding to hallucinations, and suicidal ideation. His reported he had not been caring for himself for approximately 10 weeks, was increasingly depressed, was not showering, changing his clothes, or performing ADLs. Records from previous emergency room visits over the past several years indicate that the patient has a history of recurrent depression and recurrent suicidal ideation. He also has a history in 2018 or 2019 of taking a deliberate overdose of medication. Treatment nonadherence has been an issue, both in the past and during the period of time leading up to the admission. Multiple medication changes are being made, including re-titration of lamotrigine as he had been nonadherent with all medications prior to admission, taper off of duloxetine and initiation of escitalopram, and initiation of olanzapine. He also received haloperidol and Lorazepam as needed for agitation, aggression, and sexually inappropriate behavior. He is on a 303 involuntary commitment as of 11/09. Inpatient psychiatric treatment is medically necessary due to the severity of symptoms and risk of harm to both himself and others. Reviewed. 11/14--more alert and expressive today (1) Threatening suicide: 11/06/19 -The patient was observed laying in the road in front of his house last evening and he continues to endorse suicidal ideation. -Patient will be closely monitored on suicide precautions 11/09 - Patient denying SI but reporting ongoing depression. 11/11 -Staff to contact to discuss recommendations to either remove or secure guns so the patient does not have access, given patient's cognitive impairment, depression, history of suicide attempt, and recent SI. 11/12 reviewed. (2) Depression: 11/06/19 -The patient has been admitted to the [facility] behavioral health unit and placed on suicide precautions with close observation. He is also been placed in a medically necessary private room and has been referred for individual, group, and activity therapies and is being encouraged to attend and participate. We will also work to gather additional information from his and will plan to hold a telephonic family meeting if the patient agrees. -Patient's outpatient medications reportedly include lamotrigine 100 mg a day, duloxetine 60 mg a day, hydroxyzine 50 mg once a day "as needed," and aripiprazole 15 mg daily. In the past, he has taken venlafaxine. There is a long history of nonadherence, and it is not clear when the patient took any of these medications. Currently, we do not know when the patient took lamotrigine most recently and we are reluctant to prescribe lamotrigine at 100 mg a day. Instead, we will again lamotrigine at 25 mg a day and titrate as indicated. We will be placed on duloxetine 40 mg a day. (This is lower than his outpatient dose, but, again, he evidently has not been taking it.) As needed hydroxyzine has been ordered. We have decided to hold aripiprazole for the time being in favor of Zyprexa Zydis starting at 5 mg and titrating as indicated. 11/06 -Patient giving inconsistent self-report regarding thoughts of self-harm but again acknowledges today wish as per HPI -We will continue Cymbalta at reduced dose for now. Certainly this type of p resentation seems atypical for psychosis associated with major depressive disorder and I am concerned for increasing his activation -We will need to hold the Lamictal re-titration if he remains noncompliant or sporadically compliant with p.o. medication 11/07 -Discontinue reduced dose of Cymbalta and substitute lexapro 10 mg daily chosen for reduced activation potential as compared to SNRI. 11/08 -Continue escitalopram and lamotrigine titrations. -303 hearing scheduled for tomorrow. Patient indicates willingness for inpatient treatment at this time. 11/09 -303 granted. -Increase escitalopram to 15mg daily to target depression. -Continue lamotrigine and olanzapine. Reviewed fasting labs for monitoring on an atypical antipsychotic: cholesterol 222, remainder WNLs. -Patient not yet able to tolerate groups or a family meeting. He will also need referrals for outpatient mental health treatment. 11/10 -Workup for psychosis and cognitive impairment. Fluid and electrolyte disturbance, infectious process, UTI, substance use, liver disease, and thyroid disease ruled out as part of pre-admission medical work-up; will also check vitamin B12, and recommend brain MRI as an outpatient. Will need follow-up with PCP. -Continue escitalopram 15 mg, lamotrigine 25 mg, and olanzapine 10 mg at bedtime. Consider reducing the dose of olanzapine in the next 1 to 2 days if he remains excessively somnolent. 11/11 -Patient reports improved mood but ongoing paranoia, thoughts that the world is ending. He continues to isolate in bed, has not yet showered, and has very poor grooming and hygiene. Encouraged him to be out of bed, participating in treatment. -Continue medications as above. -Patient appears confused and cognitively impaired, and given staff reports of poor fluid intake and rust colored urine, ordered UA but he has not yet provided a sample. Also rechecked CMP and CBC for signs of infection given AMS and hypotension, but lab work was normal. B12 level 889. 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 Will shift Zyprexa to hs dosing and increase to 15 mg daily with attempt to increase activity during the day as no evidence of disinhibition yesterday and poor PO. Add boost and change diet to more soft foods. May need formal Is and Os. Consider ECT referral though he would be unable to consent at this time and need to further review medical history. 11/13--titrate lexapro to 20 mg tomorrow for residual depressive symptoms as no evidence of activation this weekend, consider Zyprexa 20 mg starting tomorrow night, for today monitoring sedation and lip movements. (3) Psychosis: 11/06 -Patient demonstrating an appropriate sexualized and aggressive behaviors, appears paranoid, bizarre -Admission labs reviewed and essentially unremarkable. Reviewed head CT from 11/05/2019 indicating no acute process. Previous head CT from October 10, 2019 noted patchy white matter hypodensities likely small vessel disease. That CT was checked for worsening tremor. Ne recent etoh use known. Vital signs do not support likelihood of withdrawal. urine tox neg. -Will increase standing olanzapine to 10 mg p.o. tomorrow a.m. -Patient received Haldol 5 mg as needed (in combination with Ativan and Cogentin) for acute agitation not responsive to nonpharmacological interventions today 11/07 -Etiology for acute psychosis remains unclear. Medical work-up at admission not suspicious for obvious etiology for delirium. Nursing reported possible blood in urine however he has been urinating on the floor and obtaining a sample for repeat urinalysis with culture may prove difficult but should be considered -Cannot rule out underlying progressive neurocognitive disorder with stepwise decompensation. Early age of onset, behavior and personality changes greater than memory loss might suggest frontotemporal etiology however more likely mixed etiology with evidence of cerebrovascular disease on most recent neuroimaging and extensive alcohol abuse history. -We will continue to utilize Haldol 5 mg, Ativan 1 mg, Cogentin 1 mg every 6 hours as needed's for acute behavioral disturbance. -Patient has been accepting of medications and unlikely to improve without pharmacotherapy. Due to impaired insight secondary to psychosis, treatment over objection may be necessary and is felt to be appropriate in my clinical opinion -Over the last 24 hours, intensity and frequency of aggression and sexualized behaviors is modestly improved. However, if trend does not continue positively, would recommend consideration for Risperdal as alternative to olanzapine and possibly a Depakote trial as well. 11/08 -Improved behavioral control so far today, continue to utilize PRN medications as these appear to have been beneficial. Continue olanzapine 10 mg at bedtime, and order fasting labs for tomorrow. -Rule out delirium: Reviewed labs which were normal at the time of admission. Have attempted to get a repeat UA, but patient has been unwilling/unable to provide a sample. He denies UTI symptoms. He has had multiple head CTs in the past 2 months which were negative for acute intracranial abnormality. No current signs of alcohol withdrawal. Differential includes psychotic mood disorder, dementing process, occult medical issue. -Continue private room until he improves and is able to maintain behavioral control. Excused from groups until able to demonstrate appropriate behavior. -Will need family meeting with and referrals for outpatient treatment once able to tolerate these discussions. 11/10 -Reviewed fasting labs; glucose 91, FLP notable for cholesterol 222. 7/3 as above. 11/14--more organized Inventory Assets Strengths: Supportive family. Positive work history in the past. The record indicates that there has been a favorable response to treatment previously. Needs: Improved ability to cooperate with treatment. Adherence with psychiatric medications. Resolution of psychosis. Stabilization of mood. Risk Factors Assessment Male: Yes : Yes Do You Have Access To A Gun?: Yes (The patient denies that there are guns in his home. However, the old records indicate that at least in the past there were guns. This will need to be investigated further.) Health Problems: Yes Mental Health Diagnoses: Yes Substance Use Disorders: No Previous Attempt: Yes (Details of the previous attempt are not known at this time., Other than the attempt reportedly occurred within the past year or 2 and consisted of his swallowing a toxic overdose.) Family History of Suicide: Yes Previous Psychiatric Hospitalization: Yes Hopelessness: Yes Smoker: Yes Protective Factors Assessment Mormonism Beliefs: No : Yes Responsible for Young Children: No Employed: No (lost job a year ago) Stable Relationships: Yes Supportive Family: Yes Good Rapport with Provider: No Absence of Any Risk Factors Above: No Interval History Identifying Information FIORDALIZA NAZARIO is a 59-year-old M who currently lives in [place], [place] with his . He has a history of recurrent episodes of major depression. He was admitted on 11/05/19 23:05 on a 201 voluntary commitment for altered mental status after his neighbors observed him laying down in the middle of the road in front of his house. He was placed on a 302 after he became aggressive with staff, and is on a 303 as of 11/09. Reviewed. Chief Complaint "I don't want to go home". Review of Systems Sleep Information Total Hours of Sleep: 6.5 Sleep Comments: pt on q-15 minute checks Meal Information Percent Meal Consumed - Breakfast: 100 Percent Meal Consumed - Lunch: 100 Percent Meal Consumed - Dinner: 100 Nutrition Comment: liquids only Subjective Subjective Patient was seen & assessed and interval progress reviewed with nursing and social work. Patient still has not showered or changed scrubs. As more expressive this am security asked up for behavioral support in escorting patient to the shower room. He sat on chair for some time. He agreed then didn't change clothes. Staff enlisted mother in additional ideas of how to connect with patient and ultimately arranged a zoom meeting with his brother where he was told about his step father's passing. Patient refers to his home situation as chaotic and discharge not a motivation to improve. He was clearly organized enough to choose to defy staff vs being truly catatonic. He may be willing to live with mother upon discharge or consider a personal usp. Physical Exam Psychiatric Orientation: alert Apperance: + disheveled Eye Contact: + poor eye contact snoot movements more spontaneous but still rather rote Affect: + depressed affect Mood: + depressed mood Thought Process: + concrete thought process Thought Content: no delusions Suicidal Thoughts: denies suicidal thoughts Homicidal Thoughts: denies homicidal thoughts Hallucinations: no auditory hallucinations and no visual hallucinations Vital Signs (Past 24 Hours) Last Vital Signs Temp 36.4 C L 11/15/19 06:34 Pulse 66 11/15/19 06:35 Resp 18 11/15/19 06:34 BP 98/73 L 11/15/19 06:35 Pulse Ox 95 11/11/19 19:47 Results & Data ([facility]) Current Inpatient Medications Current Inpatient Medications: Current Inpatient Medications Acetaminophen (Tylenol) 650 mg PO Q4H PRN PRN Reason: Headache or Minor Fever Stop: 12/05/19 23:48 Al Hydrox/Mg Hydrox/Simethicone (Maalox) 30 ml PO Q4H PRN PRN Reason: GI Upset Stop: 12/05/19 23:48 Last Admin: 11/14/19 16:54 Dose: 30 ml Documented by: Benztropine Mesylate (Cogentin) 1 mg IM Q6H PRN PRN Reason: dystonia Stop: 12/07/19 12:17 Benztropine Mesylate (Cogentin) 1 mg PO Q6H PRN PRN Reason: dystonia Stop: 12/07/19 12:20 Last Admin: 11/08/19 09:40 Dose: 1 mg Documented by: Bismuth Subsalicylate (Kaopectate) 15 ml PO PRN PRN PRN Reason: Loose Stool Stop: 12/05/19 23:48 Escitalopram [facility]al[facility] ([facility]apro Tab) [facility] [place]: 12/16/19 08:59 Haloperidol (Haldol) 5 mg PO Q6H PRN PRN Reason: acute agitation/aggression Stop: 12/07/19 12:19 Last Admin: 11/08/19 09:40 Dose: 5 mg Documented by: Haloperidol Lactate (Haldol) 5 mg IM Q6H PRN PRN Reason: aggression/agitation Stop: 12/07/19 12:13 Hydroxyzine HCl (Vistaril) 50 mg PO HSZ PRN PRN Reason: Insomnia Stop: 12/05/19 23:48 Hydroxyzine HCl (Vistaril) 25 mg PO Q4H PRN PRN Reason: Anxiety Stop: 12/05/19 23:48 Lamotrigine (Lamictal) 25 mg PO QAM [facility] Stop: 12/07/19 08:59 Last Admin: 11/15/19 10:52 Dose: 25 mg Documented by: Lorazepam (Ativan) 2 mg IM Q6H PRN PRN Reason: Agitation Stop: 12/07/19 12:34 Lorazepam (Ativan) 1 mg PO Q6H PRN PRN Reason: agitation/aggression Stop: 12/07/19 13:04 Last Admin: 11/08/19 09:40 Dose: 1 mg Documented by: Magnesium Hydroxide (Milk Of Magnesia) 30 ml PO DAILY PRN PRN Reason: Constipation Stop: 12/05/19 23:48 Miscellaneous (Remove Nicoderm Patch) 1 ea N/A DAILY@0859 [facility] Stop: 12/06/19 08:58 Last Admin: 11/15/19 10:52 Dose: Not Given Documented by: Nicotine (Nicoderm Cq) 7 mg TD QAM [facility] Stop: 12/06/19 08:59 Last Admin: 11/15/19 10:52 Dose: Not Given Documented by: Olanzapine (Zyprexa Zydis Od) 15 mg PO HS MICHEL Stop: 12/14/19 21:59 Last Admin: 11/14/19 21:49 Dose: 15 mg Documented by: Sodium Chloride ([place] Nasal) 1 - 2 sprays NA PRN PRN PRN Reason: Nasal Dryness/Congestion Stop: 12/05/19 23:48 Mental Health & Subst Abuse Tx Therapist Name of Therapist: None Livestock Slaughterer Name of Livestock Slaughterer: None Post Discharge Appointments Primary Care Physician Name Of Family Doctor: [facility] Mj Dennis PA-C Primary Care Date of Appointment with PCP: 11/25/19 Time of Appointment with PCP: 1:00pm Provider Appointment Comment: [address], [address], [place] [address] Contact Information Discharge Discharge [address]: [address] [place] [address], [place] [id number] (1) Depression Active/Remission status: currently active Depression Type: major depressive disorder Major depression episode severity: severe Major depression recurrence: single episode Psychotic features: with psychotic features Qualified Code(s): F32.3 - Major depressive disorder, single episode, severe with psychotic features
[2019-11-15] MEDS ORDERED: OLANZAPINE ZYDIS 5 MG ORALLY DIS. TAB PO PRN (13:08)
--- NOTE | 2019-11-15 18:24 | Progress Note ---
Date of Service November 15, 2019 Assessment & Plan Admission and Anticipated Discharge Date Admission Date: November 05, 2019 Subjective Patient became attention seeking after family meeting and staff interventions around hygiene earlier this afternoon. Exposed self to female nurse and sw and singing loudy when ignored/redirected. Remains in FABIO. Behavior appeared quite deliberate, contrast to passivity as defiance earlier in am. Zyprexa zydus 5 mg prn ordered should escalate. Contacted staff this shift to ensure no change in med plan necessary for am. Not exhibiting manic behavior, no further incident. Results & Data ([facility]) Vital Signs (Past 12 Hours) Vital Signs Temp Pulse Resp BP 11/15/19 06:35 66 98/73 L 11/15/19 06:34 36.4 C L 47 L 18 102/64
[2019-11-15] MEDS: OLANZAPINE ZYDIS 5 MG ORALLY DIS. TAB PO SCH (21:02)
[2019-11-16] MEDS: lamoTRIgine 25 MG TAB PO SCH (08:58)
[2019-11-16] MEDS: NICOTINE 7 MG/24 HR TDSY TD SCH (08:58)
[2019-11-16] MEDS: ESCITALOPRAM OXALATE 20 MG TAB PO SCH (08:58)
--- NOTE | 2019-11-16 10:34 | Psychiatric Progress Note ---
Date of Service November 16, 2019 Impression / Recommendations Impression Patient remains severely impaired by his psychiatric symptoms, is confused, a poor historian, paranoid and depressed. The admission was precipitated by the patient laying in the street in front of his home, was found to be altered in the ER, and endorsed depression, paranoia, was responding to hallucinations, and suicidal ideation. His reported he had not been caring for himself for approximately 10 weeks, was increasingly depressed, was not showering, changing his clothes, or performing ADLs. Records from previous emergency room visits over the past several years indicate that the patient has a history of recurrent depression and recurrent suicidal ideation. He also has a history in 2018 or 2019 of taking a deliberate overdose of medication. Treatment nonadherence has been an issue, both in the past and during the period of time leading up to the admission. Multiple medication changes are being made, including re-titration of lamotrigine as he had been nonadherent with all medications prior to admission, taper off of duloxetine and initiation of escitalopram, and initiation of olanzapine. He also received haloperidol and Lorazepam as needed for agitation, aggression, and sexually inappropriate behavior. He is on a 303 involuntary commitment as of 11/09. Inpatient psychiatric treatment is medically necessary due to the severity of symptoms and risk of harm to both himself and others. Reviewed. 11/14--more alert and expressive today (1) Threatening suicide: 11/06/19 -The patient was observed laying in the road in front of his house last evening and he continues to endorse suicidal ideation. -Patient will be closely monitored on suicide precautions 11/09 - Patient denying SI but reporting ongoing depression. 11/11 -Staff to contact to discuss recommendations to either remove or secure guns so the patient does not have access, given patient's cognitive impairment, depression, history of suicide attempt, and recent SI. 11/12 reviewed. (2) Depression: 11/06/19 -The patient has been admitted to the [facility] and placed on suicide precautions with close observation. He is also been placed in a medically necessary private room and has been referred for individual, group, and activity therapies and is being encouraged to attend and participate. We will also work to gather additional information from his and will plan to hold a telephonic family meeting if the patient agrees. -Patient's outpatient medications reportedly include lamotrigine 100 mg a day, duloxetine 60 mg a day, hydroxyzine 50 mg once a day "as needed," and aripiprazole 15 mg daily. In the past, he has taken venlafaxine. There is a long history of nonadherence, and it is not clear when the patient took any of these medications. Currently, we do not know when the patient took lamotrigine most recently and we are reluctant to prescribe lamotrigine at 100 mg a day. Instead, we will again lamotrigine at 25 mg a day and titrate as indicated. We will be placed on duloxetine 40 mg a day. (This is lower than his outpatient dose, but, again, he evidently has not been taking it.) As needed hydroxyzine has been ordered. We have decided to hold aripiprazole for the time being in favor of Zyprexa Zydis starting at 5 mg and titrating as indicated. 11/06 -Patient giving inconsistent self-report regarding thoughts of self-harm but again acknowledges today wish as per HPI -We will continue Cymbalta at reduced dose for now. Certainly this type of p resentation seems atypical for psychosis associated with major depressive disorder and I am concerned for increasing his activation -We will need to hold the Lamictal re-titration if he remains noncompliant or sporadically compliant with p.o. medication 11/07 -Discontinue reduced dose of Cymbalta and substitute lexapro 10 mg daily chosen for reduced activation potential as compared to SNRI. 11/08 -Continue escitalopram and lamotrigine titrations. -303 hearing scheduled for tomorrow. Patient indicates willingness for inpatient treatment at this time. 11/09 -303 granted. -Increase escitalopram to 15mg daily to target depression. -Continue lamotrigine and olanzapine. Reviewed fasting labs for monitoring on an atypical antipsychotic: cholesterol 222, remainder WNLs. -Patient not yet able to tolerate groups or a family meeting. He will also need referrals for outpatient mental health treatment. 11/10 -Workup for psychosis and cognitive impairment. Fluid and electrolyte disturbance, infectious process, UTI, substance use, liver disease, and thyroid disease ruled out as part of pre-admission medical work-up; will also check vitamin B12, and recommend brain MRI as an outpatient. Will need follow-up with PCP. -Continue escitalopram 15 mg, lamotrigine 25 mg, and olanzapine 10 mg at bedtime. Consider reducing the dose of olanzapine in the next 1 to 2 days if he remains excessively somnolent. 11/11 -Patient reports improved mood but ongoing paranoia, thoughts that the world is ending. He continues to isolate in bed, has not yet showered, and has very poor grooming and hygiene. Encouraged him to be out of bed, participating in treatment. -Continue medications as above. -Patient appears confused and cognitively impaired, and given staff reports of poor fluid intake and rust colored urine, ordered UA but he has not yet provided a sample. Also rechecked CMP and CBC for signs of infection given AMS and hypotension, but lab work was normal. B12 level 889. 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 Will shift Zyprexa to hs dosing and increase to 15 mg daily with attempt to increase activity during the day as no evidence of disinhibition yesterday and poor PO. Add boost and change diet to more soft foods. May need formal Is and Os. Consider ECT referral though he would be unable to consent at this time and need to further review medical history. 11/13--titrate lexapro to 20 mg tomorrow for residual depressive symptoms as no evidence of activation this weekend, consider Zyprexa 20 mg starting tomorrow night, for today monitoring sedation and lip movements. 11/15--titrate Zyprexa to 20 mg tonight, target dosing for both SSRI and Zyprexa. Slightly more organized but unable to meet basic needs for nutrition and hygiene without hospital support, eating improved. (3) Psychosis: 11/06 -Patient demonstrating an appropriate sexualized and aggressive behaviors, appears paranoid, bizarre -Admission labs reviewed and essentially unremarkable. Reviewed head CT from 11/05/2019 indicating no acute process. Previous head CT from October 10, 2019 noted patchy white matter hypodensities likely small vessel disease. That CT was checked for worsening tremor. Ne recent etoh use known. Vital signs do not support likelihood of withdrawal. urine tox neg. -Will increase standing olanzapine to 10 mg p.o. tomorrow a.m. -Patient received Haldol 5 mg as needed (in combination with Ativan and Cogentin) for acute agitation not responsive to nonpharmacological interventions today 11/07 -Etiology for acute psychosis remains unclear. Medical work-up at admission not suspicious for obvious etiology for delirium. Nursing reported possible blood in urine however he has been urinating on the floor and obtaining a sample for repeat urinalysis with culture may prove difficult but should be considered -Cannot rule out underlying progressive neurocognitive disorder with stepwise decompensation. Early age of onset, behavior and personality changes greater than memory loss might suggest frontotemporal etiology however more likely mixed etiology with evidence of cerebrovascular disease on most recent neuroimaging and extensive alcohol abuse history. -We will continue to utilize Haldol 5 mg, Ativan 1 mg, Cogentin 1 mg every 6 hours as needed's for acute behavioral disturbance. -Patient has been accepting of medications and unlikely to improve without pharmacotherapy. Due to impaired insight secondary to psychosis, treatment over objection may be necessary and is felt to be appropriate in my clinical opinion -Over the last 24 hours, intensity and frequency of aggression and sexualized behaviors is modestly improved. However, if trend does not continue positively, would recommend consideration for Risperdal as alternative to olanzapine and possibly a Depakote trial as well. 11/08 -Improved behavioral control so far today, continue to utilize PRN medications as these appear to have been beneficial. Continue olanzapine 10 mg at bedtime, and order fasting labs for tomorrow. -Rule out delirium: Reviewed labs which were normal at the time of admission. Have attempted to get a repeat UA, but patient has been unwilling/unable to provide a sample. He denies UTI symptoms. He has had multiple head CTs in the past 2 months which were negative for acute intracranial abnormality. No current signs of alcohol withdrawal. Differential includes psychotic mood disorder, dementing process, occult medical issue. -Continue private room until he improves and is able to maintain behavioral control. Excused from groups until able to demonstrate appropriate behavior. -Will need family meeting with and referrals for outpatient treatment once able to tolerate these discussions. 11/10 -Reviewed fasting labs; glucose 91, FLP notable for cholesterol 222. 7/3 as above. 11/14--more organized 11/16--exposing self yesterday was more defiance than disorganized Inventory Assets Strengths: Supportive family. Positive work history in the past. The record indicates that there has been a favorable response to treatment previously. Needs: Improved ability to cooperate with treatment. Adherence with psychiatric medications. Resolution of psychosis. Stabilization of mood. Risk Factors Assessment Male: Yes : Yes Do You Have Access To A Gun?: Yes (The patient denies that there are guns in his home. However, the old records indicate that at least in the past there were guns. This will need to be investigated further.) Health Problems: Yes Mental Health Diagnoses: Yes Substance Use Disorders: No Previous Attempt: Yes (Details of the previous attempt are not known at this time., Other than the attempt reportedly occurred within the past year or 2 and consisted of his swallowing a toxic overdose.) Family History of Suicide: Yes Previous Psychiatric Hospitalization: Yes Hopelessness: Yes Smoker: Yes Protective Factors Assessment Jew Beliefs: No : Yes Responsible for Young Children: No Employed: No (lost job a year ago) Stable Relationships: Yes Supportive Family: Yes Good Rapport with Provider: No Absence of Any Risk Factors Above: No Interval History Identifying Information FIORDALIZA NAZARIO is a 59-year-old M who currently lives in [place], [place] with his . He has a history of recurrent episodes of major depression. He was admitted on 11/05/19 23:05 on a 201 voluntary commitment for altered mental status after his neighbors observed him laying down in the middle of the road in front of his house. He was placed on a 302 after he became aggressive with staff, and is on a 303 as of 11/09. Reviewed. Chief Complaint "yep, yes, yes". Review of Systems Sleep Information Total Hours of Sleep: 10 Sleep Comments: sleep soundly with occasional positional changes noted Meal Information Percent Meal Consumed - Breakfast: 100 Percent Meal Consumed - Lunch: 90 Percent Meal Consumed - Dinner: 90 Nutrition Comment: liquids only Subjective Subjective Patient was seen & assessed and interval progress reviewed with treatment team. Behaviorally more appropriate second shift/overnight. He doesn't recall behavior today though is likely avoiding discussing. Still refuses to shower. He is eating well and out of bed in room/more awake during day. Denies thoughts of . States willing to live with mother Physical Exam Psychiatric Orientation: oriented to person and oriented to place Apperance: + disheveled Eye Contact: + poor eye contact small suckling movements of mouth unchanged, blinking due to light/dryness non spontaneous, answers are wrote to avoid discussion Affect: + depressed affect Mood: + depressed mood Thought Process: + concrete thought process Thought Content: no delusions Suicidal Thoughts: denies suicidal thoughts Homicidal Thoughts: denies homicidal thoughts Hallucinations: no auditory hallucinations and no visual hallucinations Insight: + severely impaired insight Judgement: + severely impaired judgement Vital Signs (Past 24 Hours) Last Vital Signs Temp 36.2 C L 11/16/19 06:50 Pulse 56 L 11/16/19 06:51 Resp 18 11/16/19 06:50 BP 112/72 11/16/19 06:51 Pulse Ox 95 11/11/19 19:47 Results & Data ([facility]) Current Inpatient Medications Current Inpatient Medications: Current Inpatient Medications Acetaminophen (Tylenol) 650 mg PO Q4H PRN PRN Reason: Headache or Minor Fever Stop: 12/05/19 23:48 Al Hydrox/Mg Hydrox/Simethicone (Maalox) 30 ml PO Q4H PRN PRN Reason: GI Upset Stop: 12/05/19 23:48 Last Admin: 11/14/19 16:54 Dose: 30 ml Documented by: Benztropine Mesylate (Cogentin) 1 mg IM Q6H PRN PRN Reason: dystonia Stop: 12/07/19 12:17 Benztropine Mesylate (Cogentin) 1 mg PO Q6H PRN PRN Reason: dystonia Stop: 12/07/19 12:20 Last Admin: 11/08/19 09:40 Dose: 1 mg Documented by: Bismuth Subsalicylate (Kaopectate) 15 ml PO PRN PRN PRN Reason: Loose Stool Stop: 12/05/19 23:48 Escitalopram Oxalate (Lexapro Tab) 20 mg PO QAM MICHEL Stop: 12/16/19 08:59 Last Admin: 11/16/19 08:58 Dose: 20 mg Documented by: Haloperidol (Haldol) 5 mg PO Q6H PRN PRN Reason: acute agitation/aggression Stop: 12/07/19 12:19 Last Admin: 11/08/19 09:40 Dose: 5 mg Documented by: Haloperidol Lactate (Haldol) 5 mg IM Q6H PRN PRN Reason: aggression/agitation Stop: 12/07/19 12:13 Hydroxyzine HCl (Vistaril) 50 mg PO HSZ PRN PRN Reason: Insomnia Stop: 12/05/19 23:48 Hydroxyzine HCl (Vistaril) 25 mg PO Q4H PRN PRN Reason: Anxiety Stop: 12/05/19 23:48 Lamotrigine (Lamictal) 25 mg PO QAM MICHEL Stop: 12/07/19 08:59 Last Admin: 11/16/19 08:58 Dose: 25 mg Documented by: Lorazepam (Ativan) 2 mg IM Q6H PRN PRN Reason: Agitation Stop: 12/07/19 12:34 Lorazepam (Ativan) 1 mg PO Q6H PRN PRN Reason: agitation/aggression Stop: 12/07/19 13:04 Last Admin: 11/08/19 09:40 Dose: 1 mg Documented by: Magnesium Hydroxide (Milk Of Magnesia) 30 ml PO DAILY PRN PRN Reason: Constipation Stop: 12/05/19 23:48 Miscellaneous (Remove Nicoderm Patch) 1 ea N/A DAILY@59 [facility] Stop: 12/06/19 08:58 Last Admin: 11/16/19 08:58 Dose: Not Given Documented by: Nicotine (Nicoderm Cq) 7 mg TD QAM MICHEL Stop: 12/06/19 08:59 Last Admin: 11/16/19 08:58 Dose: Not Given Documented by: Olanzapine (Zyprexa Zydis Od) 15 mg PO HS MICHEL Stop: 12/14/19 21:59 Last Admin: 11/15/19 21:02 Dose: 15 mg Documented by: Olanzapine (Zyprexa Zydis Od) 5 mg PO Q6 PRN PRN Reason: racing thoughts Stop: 12/15/19 13:07 Sodium Chloride ([place] Nasal) 1 - 2 sprays NA PRN PRN PRN Reason: Nasal Dryness/Congestion Stop: 12/05/19 23:48 Mental Health & Subst Abuse Tx Therapist Name of Therapist: None [facility] Name of [facility]: None Post Discharge Appointments Primary Care Physician Name Of Family Doctor: [facility] - Reid Dennis PA-C Primary Care Date of Appointment with PCP: 11/25/19 Time of Appointment with PCP: 1:00pm Provider Appointment Comment: [address], [address], [place] [address] Contact Information Discharge Discharge [address]: [address] [place] [address], [place] [id number] (1) Depression Active/Remission status: currently active Depression Type: major depressive disorder Major depression episode severity: severe Major depression recurrence: single episode Psychotic features: with psychotic features Qualified Code(s): F32.3 - Major depressive disorder, single episode, severe with psychotic features
[2019-11-16] MEDS: OLANZAPINE ZYDIS 10 MG ORALLY DIS. TAB PO SCH (21:06)
[2019-11-17] MEDS: ESCITALOPRAM OXALATE 20 MG TAB PO SCH (08:24)
[2019-11-17] MEDS: lamoTRIgine 25 MG TAB PO SCH (08:24)
[2019-11-17] MEDS: NICOTINE 7 MG/24 HR TDSY TD SCH (08:25)
--- NOTE | 2019-11-17 11:41 | Psychiatric Progress Note ---
Date of Service November 17, 2019 Impression / Recommendations Impression Patient remains confused and a poor historian, but depression and paranoia have improved. The admission was precipitated by the patient laying in the street in front of his home, was found to be altered in the ER, and endorsed depression, paranoia, was responding to hallucinations, and suicidal ideation. His reported he had not been caring for himself for approximately 10 weeks, was increasingly depressed, was not showering, changing his clothes, or performing ADLs. Records from previous emergency room visits over the past several years indicate that the patient has a history of recurrent depression and recurrent suicidal ideation. He also has a history in 2018 or 2019 of taking a deliberate overdose of medication. Treatment nonadherence has been an issue, both in the past and during the period of time leading up to the admission. Multiple medication changes are being made, including re-titration of lamotrigine as he had been nonadherent with all medications prior to admission, taper off of d uloxetine and initiation of escitalopram, and initiation of olanzapine. He also received haloperidol and Lorazepam as needed for agitation, aggression, and sexually inappropriate behavior. He is on a 303 involuntary commitment as of 11/09. He has demonstrated improvement from admission, and is likely nearing his baseline. We are working on discharge planning with his family, and he will be going to live with his mother for increased support. Until such time as a safe discharge plan can be enacted, inpatient psychiatric treatment is medically necessary due to the severity of symptoms and risk of harm to both himself and others. (1) Threatening suicide: 11/06/19 -The patient was observed laying in the road in front of his house last evening and he continues to endorse suicidal ideation. -Patient will be closely monitored on suicide precautions 11/09 - Patient denying SI but reporting ongoing depression. 11/11 -Staff to contact to discuss recommendations to either remove or secure guns so the patient does not have access, given patient's cognitive impairment, depression, history of suicide attempt, and recent SI. 11/16 -staff confirm family secured guns and patient will not have access. He will be going to live with his mother, with support from multiple family members/brother. (2) Depression: 11/06/19 -The patient has [facility] and placed on suicide precautions with close observation. He is also been placed in a med ically necessary private room and has been referred for individual, group, and activity therapies and is being encouraged to attend and participate. We will also work to gather additional information from his and will plan to hold a telephonic family meeting if the patient agrees. -Patient's outpatient medications reportedly include lamotrigine 100 mg a day, duloxetine 60 mg a day, hydroxyzine 50 mg once a day "as needed," and aripiprazole 15 mg daily. In the past, he has taken venlafaxine. There is a long history of nonadherence, and it is not clear when the patient took any of these medications. Currently, we do not know when the patient took lamotrigine most recently and we are reluctant to prescribe lamotrigine at 100 mg a day. Instead, we will again lamotrigine at 25 mg a day and titrate as indicated. We will be placed on duloxetine 40 mg a day. (This is lower than his outpatient dose, but, again, he evidently has not been taking it.) As needed hydroxyzine has been ordered. We have decided to hold aripiprazole for the time being in favor of Zyprexa Zydis starting at 5 mg and titrating as indicated. 11/06 -Patient giving inconsistent self-report regarding thoughts of self-harm but again acknowledges today wish as per HPI -We will continue Cymbalta at reduced dose for now. Certainly this type of presentation seems atypical for psychosis associated with major depressive disorder and I am concerned for increasing his activation -We will need to hold the Lamictal re-titration if he remains noncompliant or sporadically compliant with p.o. medication 11/07 -Discontinue reduced dose of Cymbalta and substitute lexapro 10 mg daily chosen for reduced activation potential as compared to SNRI. 11/08 -Continue escitalopram and lamotrigine titrations. -303 hearing scheduled for tomorrow. Patient indicates willingness for inpatient treatment at this time. 11/09 -303 granted. -Increase escitalopram to 15mg daily to target depression. -Continue lamotrigine and olanzapine. Reviewed fasting labs for monitoring on an atypical antipsychotic: cholesterol 222, remainder WNLs. -Patient not yet able to tolerate groups or a family meeting. He will also need referrals for outpatient mental health treatment. 11/10 -Workup for psychosis and cognitive impairment. Fluid and electrolyte disturbance, infectious process, UTI, substance use, liver disease, and thyroid disease ruled out as part of pre-admission medical work-up; will also check vitamin B12, and recommend brain MRI as an outpatient. Will need follow-up with PCP. -Continue escitalopram 15 mg, lamotrigine 25 mg, and olanzapine 10 mg at bedtime. Consider reducing the dose of olanzapine in the next 1 to 2 days if he remains excessively somnolent. 7 -Patient reports improved mood but ongoing paranoia, thoughts that the world is ending. He continues to isolate in bed, has not yet showered, and has very poor grooming and hygiene. Encouraged him to be out of bed, participating in treatment. -Continue medications as above. -Patient appears confused and cognitively impaired, and given staff reports of poor fluid intake and rust colored urine, ordered UA but he has not yet pr ovided a sample. Also rechecked CMP and CBC for signs of infection given AMS and hypotension, but lab work was normal. B12 level 889. 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 Will shift Zyprexa to hs dosing and increase to 15 mg daily with attempt to increase activity during the day as no evidence of disinhibition yesterday and poor PO. Add boost and change diet to more soft foods. May need formal Is and Os. Consider ECT referral though he would be unable to consent at this time and need to further review medical history. 11/13--titrate lexapro to 20 mg tomorrow for residual depressive symptoms as no evidence of activation this weekend, consider Zyprexa 20 mg starting tomorrow night, for today monitoring sedation and lip movements. 11/15--titrate Zyprexa to 20 mg tonight, target dosing for both SSRI and Zyprexa. Slightly more organized but unable to meet basic needs for nutrition and hygiene without hospital support, eating improved. 11/16 -mood improved, ongoing anxiety. Patient isolating in bed, declining most groups. Staff encouraging him to shower. Self-care poor at baseline. Continue to explore discharge plans with family. (3) Psychosis: 11/06 -Patient demonstrating an appropriate sexualized and aggressive behaviors, appears paranoid, bizarre -Admission labs reviewed and essentially unremarkable. Reviewed head CT from 11/05/2019 indicating no acute process. Previous head CT from October 10, 2019 noted patchy white matter hypodensities likely small vessel disease. That CT was checked for worsening tremor. Ne recent etoh use known. Vital signs do not support likelihood of withdrawal. urine tox neg. -Will increase standing olanzapine to 10 mg p.o. tomorrow a.m. -Patient received Haldol 5 mg as needed (in combination with Ativan and Cogentin) for acute agitation not responsive to nonpharmacological interventions today 11/07 -Etiology for acute psychosis remains unclear. Medical work-up at admission not suspicious for obvious etiology for delirium. Nursing reported possible blood in urine however he has been urinating on the floor and obtaining a sample for repeat urinalysis with culture may prove difficult but should be considered -Cannot rule out underlying progressive neurocognitive disorder with stepwise decompensation. Early age of onset, behavior and personality changes greater than memory loss might suggest frontotemporal etiology however more likely mixed etiology with evidence of cerebrovascular disease on most recent neuroimaging and extensive alcohol abuse history. -We will continue to utilize Haldol 5 mg, Ativan 1 mg, Cogentin 1 mg every 6 hours as needed's for acute behavioral disturbance. -Patient has been accepting of medications and unlikely to improve without pharmacotherapy. Due to impaired insight secondary to psychosis, treatment over objection may be necessary and is felt to be appropriate in my clinical opinion -Over the last 24 hours, intensity and frequency of aggression and sexualized behaviors is modestly improved. However, if trend does not continue positively, would recommend consideration for Risperdal as alternative to olanzapine and possibly a Depakote trial as well. 11/08 -Improved behavioral control so far today, continue to utilize PRN medications as these appear to have been beneficial. Continue olanzapine 10 mg at bedtime, and order fasting labs for tomorrow. -Rule out delirium: Reviewed labs which were normal at the time of admission. Have attempted to get a repeat UA, but patient has been unwilling/unable to provide a sample. He denies UTI symptoms. He has had multiple head CTs in the past 2 months which were negative for acute intracranial abnormality. No current signs of alcohol withdrawal. Differential includes psychotic mood disorder, dementing process, occult medical issue. -Continue private room until he improves and is able to maintain behavioral control. Excused from groups until able to demonstrate appropriate behavior. -Will need family meeting with and referrals for outpatient treatment once able to tolerate these discussions. 11/10 -Reviewed fasting labs; glucose 91, FLP notable for cholesterol 222. 7/3 as above. 11/14--more organized 11/16--exposing self yesterday was more defiance than disorganized 11/17 -good behavioral control for the past 2 days. No psychosis on exam. 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 Mandated [employer] paperwork submitted, given concerns for impaired cognition. Inventory Assets Strengths: Supportive family. Positive work history in the past. The record indicates that there has been a favorable response to treatment previously. Needs: Improved ability to cooperate with treatment. Adherence with psychiatric medications. Resolution of psychosis. Stabilization of mood. Risk Factors Assessment Male: Yes : Yes Do You Have Access To A Gun?: Yes (The patient denies that there are guns in his home. However, the old records indicate that at least in the past there were guns. This will need to be investigated further.) Health Problems: Yes Mental Health Diagnoses: Yes Substance Use Disorders: No Previous Attempt: Yes (Details of the previous attempt are not known at this time., Other than the attempt reportedly occurred within the past year or 2 and consisted of his swallowing a toxic overdose.) Family History of Suicide: Yes Previous Psychiatric Hospitalization: Yes Hopelessness: Yes Smoker: Yes Protective Factors Assessment Yarsani Beliefs: No : Yes Responsible for Young Children: No Employed: No (lost job a year ago) Stable Relationships: Yes Supportive Family: Yes Good Rapport with Provider: No Absence of Any Risk Factors Above: No Interval History Identifying Information FIORDALIZA NAZARIO is a 59-year-old M who currently lives in [place], [place] with his . He has a history of recurrent episodes of major depression. He was admitted on 11/05/19 23:05 on a 201 voluntary commitment for altered mental status after his neighbors observed him laying down in the middle of the road in front of his house. He was placed on a 302 after he became aggressive with staff, and is on a 303 as of 11/09. Reviewed. Chief Complaint " Okay". Review of Systems Sleep Information Total Hours of Sleep: 11 Sleep Comments: awake from [id number], slept soundly with periodic positional changes in bed noted Meal Information Percent Meal Consumed - Breakfast: 10 Percent Meal Consumed - Lunch: 100 Percent Meal Consumed - Dinner: 100 Nutrition Comment: pt. drank boost but declined solid foods, stating he is not hungry right now Subjective Subjective Patient was seen & assessed and interval progress reviewed with nursing and social work. Staff report he continues to isolate in his room, refuse groups, and has not showered. He will often agreed to shower with staff encouragement, but then will not actually get out of bed and proceed to the shower, even with support. He is eating well, and sleeping through the night. He has been in good behavioral control. On my assessment he was seen in his room, where he remains in bed. He states his mood is improved from admission, but reports feeling "anxious, anxiety." He is unable to specify what he is anxious about, or to give additional information about his thought process. He admits that he has not showered since admission, agrees to shower today, but then does not want to get out of bed to proceed to the shower area. He cannot explain why, stating "I don't know." He initially says he does not know what the plan is for discharge, but when reviewed information discussed in his family meeting, he is agreeable to going to his mother's house. 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 He was informed of our recommendations that he not drive until medically stable and cleared by physician, and expresses understanding. Physical Exam Psychiatric Orientation: alert and cooperative (Partially) Apperance: appropriately groomed and + disheveled; + inappropriately dressed Still wearing paper scrubs since admission (12 days ago), poor hygiene and grooming. Lying in bed awake, in no acute distress. Eye Contact: + poor eye contact (Keeps eyes closed) Motor Behavior: no abnormal motor movements Minimal speech, short answers. Affect: + blunted affect Mood: + anxious mood Thought Process: + concrete thought process Paucity of thought content, concrete, often states he does not know. Suicidal Thoughts: denies suicidal thoughts Homicidal Thoughts: denies homicidal thoughts Hallucinations: no auditory hallucinations and no visual hallucinations Cognition: + recent memory not intact and + remote memory not intact Estimated Intelligence: + below average estimated intelligence Insight: + impaired insight Judgement: + impaired judgement Vital Signs (Past 24 Hours) Last Vital Signs Temp 36.5 C 11/17/19 06:49 Pulse 59 L 11/17/19 06:49 Resp 18 11/17/19 06:49 BP 109/73 11/17/19 06:49 Pulse Ox 95 11/11/19 19:47 Results & Data ([facility]) Current Inpatient Medications Current Inpatient Medications: Current Inpatient Medications Acetaminophen (Tylenol) 650 mg PO Q4H PRN PRN Reason: Headache or Minor Fever Stop: 12/05/19 23:48 Al Hydrox/Mg Hydrox/Simethicone (Maalox) 30 ml PO Q4H PRN PRN Reason: GI Upset Stop: 12/05/19 23:48 Last Admin: 11/14/19 16:54 Dose: 30 ml Documented by: Benztropine Mesylate (Cogentin) 1 mg IM Q6H PRN PRN Reason: dystonia Stop: 12/07/19 12:17 Benztropine Mesylate (Cogentin) 1 mg PO Q6H PRN PRN Reason: dystonia Stop: 12/07/19 12:20 Last Admin: 11/08/19 09:40 Dose: 1 mg Documented by: Bismuth Subsalicylate (Kaopectate) 15 ml PO PRN PRN PRN Reason: Loose Stool Stop: 12/05/19 23:48 Escitalopram Oxalate (Lexapro Tab) [facility] Stop: 12/16/19 08:59 Last Admin: 11/17/19 08:24 Dose: 20 mg Documented by: Haloperidol (Haldol) 5 mg PO Q6H PRN PRN Reason: acute agitation/aggression Stop: 12/07/19 12:19 Last Admin: 11/08/19 09:40 Dose: 5 mg Documented by: Haloperidol Lactate (Haldol) 5 mg IM Q6H PRN PRN Reason: aggression/agitation Stop: 12/07/19 12:13 Hydroxyzine HCl (Vistaril) 50 mg PO HSZ PRN PRN Reason: Insomnia Stop: 12/05/19 23:48 Hydroxyzine HCl (Vistaril) 25 mg PO Q4H PRN PRN Reason: Anxiety Stop: 12/05/19 23:48 Lamotrigine (Lamictal) 25 mg PO QAM [facility] Stop: 12/07/19 08:59 Last Admin: 11/17/19 08:24 Dose: 25 mg Documented by: Lorazepam (Ativan) 2 mg IM Q6H PRN PRN Reason: Agitation Stop: 12/07/19 12:34 Lorazepam (Ativan) 1 mg PO Q6H PRN PRN Reason: agitation/aggression Stop: 12/07/19 13:04 Last Admin: 11/08/19 09:40 Dose: 1 mg Documented by: Magnesium Hydroxide (Milk Of Magnesia) 30 ml PO DAILY PRN PRN Reason: Constipation Stop: 12/05/19 23:48 Miscellaneous (Remove Nicoderm Patch) 1 ea N/A DAILY@0859 [facility] Stop: 12/06/19 08:58 Last Admin: 11/17/19 08:23 Dose: Not Given Documented by: Nicotine (Nicoderm Cq) 7 mg TD QAM [facility] Stop: 12/06/19 08:59 Last Admin: 11/17/19 08:25 Dose: Not Given Documented by: Olanzapine (Zyprexa Zydis Od) 5 mg PO Q6 PRN PRN Reason: racing thoughts Stop: 12/15/19 13:07 Olanzapine (Zyprexa Zydis Od) 20 mg PO HS MICHEL Stop: 12/16/19 21:59 Last Admin: 11/16/19 21:06 Dose: 20 mg Documented by: Sodium Chloride ([place] Nasal) 1 - 2 sprays NA PRN PRN PRN Reason: Nasal Dryness/Congestion Stop: 12/05/19 23:48 Mental Health & Subst Abuse Tx Therapist Name of Therapist: None Regulatory Affairs Portfolio Leader Name of Regulatory Affairs Portfolio Leader: None Post Discharge Appointments Primary Care Physician Name Of Family Doctor: [facility] - Reid Bolden PA-C Primary Care Date of Appointment with PCP: 11/25/19 Time of Appointment with PCP: 1:00 pm Provider Appointment Comment: [address], [address], [place] [address] Contact Information Discharge Discharge [address]: [address] [place] [address], [place] [id number] (1) Depression Active/Remission status: currently active Depression Type: major depressive disorder Major depression episode severity: severe Major depression recurrence: single episode Psychotic features: with psychotic features Qualified Code(s): F32.3 - Major depressive disorder, single episode, severe with psychotic features
[2019-11-17] MEDS: OLANZAPINE ZYDIS 10 MG ORALLY DIS. TAB PO SCH (21:00)
[2019-11-18] MEDS: NICOTINE 7 MG/24 HR TDSY TD SCH (10:09)
[2019-11-18] MEDS: lamoTRIgine 25 MG TAB PO SCH (10:11)
[2019-11-18] MEDS: ESCITALOPRAM OXALATE 20 MG TAB PO SCH (10:11)
--- NOTE | 2019-11-18 14:07 | Psychiatric Progress Note ---
Date of Service November 18, 2019 Impression / Recommendations Impression Patient remains confused and a poor historian, but depression and paranoia have improved. The admission was precipitated by the patient laying in the street in front of his home, was found to be altered in the ER, and endorsed depression, paranoia, was responding to hallucinations, and suicidal ideation. His reported he had not been caring for himself for approximately 10 weeks, was increasingly depressed, was not showering, changing his clothes, or performing ADLs. Records from previous emergency room visits over the past several years indicate that the patient has a history of recurrent depression and recurrent suicidal ideation. He also has a history in 2018 or 2019 of taking a deliberate overdose of medication. Treatment nonadherence has been an issue, both in the past and during the period of time leading up to the admission. Multiple medication changes are being made, including re-titration of lamotrigine as he had been nonadherent with all medications prior to admission, taper off of d uloxetine and initiation of escitalopram, and initiation of olanzapine. He also received haloperidol and Lorazepam as needed for agitation, aggression, and sexually inappropriate behavior. He is on a 303 involuntary commitment as of 11/09. He has demonstrated improvement from admission, and is likely nearing his baseline. We are working on discharge planning with his family, and he will be going to live with his mother for increased support. Until such time as a safe discharge plan can be enacted, inpatient psychiatric treatment is medically necessary due to the severity of symptoms and risk of harm to both himself and others. Staff are contacting his family today to coordinate the discharge plans, as they do not feel he should return to live with his given the poor state of the home and her inability to provide for his needs, and instead he will be going to live with his mother, who lives nearby. (1) Threatening suicide: 11/06/19 -The patient was observed laying in the road in front of his house last evening and he continues to endorse suicidal ideation. -Patient will be closely monitored on suicide precautions 11/09 - Patient denying SI but reporting ongoing depression. 11/11 -Staff to contact to discuss recommendations to either remove or secure guns so the patient does not have access, given patient's cognitive impairment, depression, history of suicide attempt, and recent SI. 11/16 -staff confirm family secured guns and patient will not have access. He will be going to live with his mother, with support from multiple family members/brother. (2) Depression: 11/06/19 -The patient has been admitted to the [facility] behavioral health unit and placed on suicide precautions with close observation. He is also been placed in a medically necessary private room and has been referred for individual, group, and activity therapies and is being encouraged to attend and participate. We will also work to gather additional information from his and will plan to hold a telephonic family meeting if the patient agrees. -Patient's outpatient medications reportedly include lamotrigine 100 mg a day, duloxetine 60 mg a day, hydroxyzine 50 mg once a day "as needed," and aripiprazole 15 mg daily. In the past, he has taken venlafaxine. There is a long history of nonadherence, and it is not clear when the patient took any of these medications. Currently, we do not know when the patient took lamotrigine most recently and we are reluctant to prescribe lamotrigine at 100 mg a day. Instead, we will again lamotrigine at 25 mg a day and titrate as indicated. We will be placed on duloxetine 40 mg a day. (This is lower than his outpatient dose, but, again, he evidently has not been taking it.) As needed hydroxyzine has been ordered. We have decided to hold aripiprazole for the time being in favor of Zyprexa Zydis starting at 5 mg and titrating as indicated. 11/06 -Patient giving inconsistent self-report regarding thoughts of self-harm but again acknowledges today wish as per HPI -We will continue Cymbalta at reduced dose for now. Certainly this type of presentation seems atypical for psychosis associated with major depressive disorder and I am concerned for increasing his activation -We will need to hold the Lamictal re-titration if he remains noncompliant or sporadically compliant with p.o. medication 11/07 -Discontinue reduced dose of Cymbalta and substitute lexapro 10 mg daily chosen for reduced activation potential as compared to SNRI. 11/08 -Continue escitalopram and lamotrigine titrations. -303 hearing scheduled for tomorrow. Patient indicates willingness for inpatient treatment at this time. 11/09 -303 granted. -Increase escitalopram to 15mg daily to target depression. -Continue lamotrigine and olanzapine. Reviewed fasting labs for monitoring on an atypical antipsychotic: cholesterol 222, remainder WNLs. -Patient not yet able to tolerate groups or a family meeting. He will also need referrals for outpatient mental health treatment. 11/10 -Workup for psychosis and cognitive impairment. Fluid and electrolyte disturbance, infectious process, UTI, substance use, liver disease, and thyroid disease ruled out as part of pre-admission medical work-up; will also check vitamin B12, and recommend brain MRI as an outpatient. Will need follow-up with PCP. -Continue escitalopram 15 mg, lamotrigine 25 mg, and olanzapine 10 mg at bedtime. Consider reducing the dose of olanzapine in the next 1 to 2 days if he remains excessively somnolent. 11/11 -Patient reports improved mood but ongoing paranoia, thoughts that the world is ending. He continues to isolate in bed, has not yet showered, and has very poor grooming and hygiene. Encouraged him to be out of bed, participating in treatment. -Continue medications as above. -Patient appears confused and cognitively impaired, and given staff reports of poor fluid intake and rust colored urine, ordered UA but he has not yet provided a sample. Also rechecked CMP and CBC for signs of infection given AMS and hypotension, but lab work was normal. B12 level 889. 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 Will shift Zyprexa to hs dosing and increase to 15 mg daily with attempt to increase activity during the day as no evidence of disinhibition yesterday and poor PO. Add boost and change diet to more soft foods. May need formal Is and Os. Consider ECT referral though he would be unable to consent at this time and need to further review medical history. 11/13--titrate lexapro to 20 mg tomorrow for residual depressive symptoms as no evidence of activation this weekend, consider Zyprexa 20 mg starting tomorrow night, for today monitoring sedation and lip movements. 11/15--titrate Zyprexa to 20 mg tonight, target dosing for both SSRI and Zyprexa. Slightly more organized but unable to meet basic needs for nutrition and hygiene without hospital support, eating improved. 11/16 -mood improved, ongoing anxiety. Patient isolating in bed, declining most groups. Staff encouraging him to shower. Self-care poor at baseline. Continue to explore discharge plans with family. 11/17 -patient remains isolative to his bed, refusing to shower, with poor hygiene and grooming. He is consistently denying suicidality, and is tolerating his recent medication adjustments well. He is refusing referral for psychiatry and therapy, so will be following up with his PCP. (3) Psychosis: 11/06 -Patient demonstrating an appropriate sexualized and aggressive behaviors, appears paranoid, bizarre -Admission labs reviewed and essentially unremarkable. Reviewed head CT from 11/05/2019 indicating no acute process. Previous head CT from October 10, 2019 noted patchy white matter hypodensities likely small vessel disease. That CT was checked for worsening tremor. Ne recent etoh use known. Vital signs do not support likelihood of withdrawal. urine tox neg. -Will increase standing olanzapine to 10 mg p.o. tomorrow a.m. -Patient received Haldol 5 mg as needed (in combination with Ativan and Cogentin) for acute agitation not responsive to nonpharmacological interventions today 11/07 -Etiology for acute psychosis remains unclear. Medical work-up at admission not suspicious for obvious etiology for delirium. Nursing reported possible blood in urine however he has been urinating on the floor and obtaining a sample for repeat urinalysis with culture may prove difficult but should be considered -Cannot rule out underlying progressive neurocognitive disorder with stepwise decompensation. Early age of onset, behavior and personality changes greater than memory loss might suggest frontotemporal etiology however more likely mixed etiology with evidence of cerebrovascular disease on most recent neuroimaging and extensive alcohol abuse history. -We will continue to utilize Haldol 5 mg, Ativan 1 mg, Cogentin 1 mg every 6 hours as needed's for acute behavioral disturbance. -Patient has been accepting of medications and unlikely to improve without pharmacotherapy. Due to impaired insight secondary to psychosis, treatment over objection may be necessary and is felt to be appropriate in my clinical opinion -Over the last 24 hours, intensity and frequency of aggression and sexualized behaviors is modestly improved. However, if trend does not continue positively, would recommend consideration for Risperdal as alternative to olanzapine and possibly a Depakote trial as well. 11/08 -Improved behavioral control so far today, continue to utilize PRN medications as these appear to have been beneficial. Continue olanzapine 10 mg at bedtime, and order fasting labs for tomorrow. -Rule out delirium: Reviewed labs which were normal at the time of admission. Have attempted to get a repeat UA, but patient has been unwilling/unable to provide a sample. He denies UTI symptoms. He has had multiple head CTs in the past 2 months which were negative for acute intracranial abnormality. No current signs of alcohol withdrawal. Differential includes psychotic mood disorder, dementing process, occult medical issue. -Continue private room until he improves and is able to maintain behavioral control. Excused from groups until able to demonstrate appropriate behavior. -Will need family meeting with and referrals for outpatient treatment once able to tolerate these discussions. 11/10 -Reviewed fasting labs; glucose 91, FLP notable for cholesterol 222. 73 as above. 11/14--more organized 11/16--exposing self yesterday was more defiance than disorganized 11/17 -good behavioral control for the past 2 days. No psychosis on exam. 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 Mandated [employer] paperwork submitted, given concerns for impaired cognition. Inventory Assets Strengths: Supportive family. Positive work history in the past. The record indicates that there has been a favorable response to treatment previously. Needs: Improved ability to cooperate with treatment. Adherence with psychiatric medications. Resolution of psychosis. Stabilization of mood. Risk Factors Assessment Male: Yes : Yes Do You Have Access To A Gun?: Yes (The patient denies that there are guns in his home. However, the old records indicate that at least in the past there were guns. This will need to be investigated further.) Health Problems: Yes Mental Health Diagnoses: Yes Substance Use Disorders: No Previous Attempt: Yes (Details of the previous attempt are not known at this time., Other than the attempt reportedly occurred within the past year or 2 and consisted of his swallowing a toxic overdose.) Family History of Suicide: Yes Previous Psychiatric Hospitalization: Yes Hopelessness: Yes Smoker: Yes Protective Factors Assessment Adventism Beliefs: No : Yes Responsible for Young Children: No Employed: No (lost job a year ago) Stable Relationships: Yes Supportive Family: Yes Good Rapport with Provider: No Absence of Any Risk Factors Above: No Interval History Identifying Information FIORDALIZA NAZARIO is a 59-year-old M who currently lives in [place], [place] with his . He has a history of recurrent episodes of major depression. He was admitted on 06/25/20 23:05 on a 201 voluntary commitment for altered mental status after his neighbors observed him laying down in the middle of the road in front of his house. He was placed on a 302 after he became aggressive with staff, and is on a 303 as of 11/09. Reviewed. Chief Complaint " All right". Review of Systems Sleep Information Total Hours of Sleep: 8.5 Sleep Comments: awake from 8547-2359, slept soundly with periodic positional changes in bed noted Meal Information Percent Meal Consumed - Breakfast: 100 Percent Meal Consumed - Lunch: 50 Percent Meal Consumed - Dinner: 100 Nutrition Comment: pt. drank boost but declined solid foods, stating he is not hungry right now Subjective Subjective Patient was seen & assessed and interval progress reviewed with treatment team. Staff report the patient continues to say he will shower, but then refused to get out of bed and actually shower. He still has not changed out of the paper scrubs he was given in the ER 13 days ago, despite having clean clothes placed in his room for him to change into. He isolates in his room in bed, and is not attending groups. He is eating and slept well overnight. On my assessment today, he states his mood is "all right," and anxiety is "'bout the same." He remains unable to give further information about his anxiety, stating "I don't know" when asked to expand. He denies SI, and feels he will be ready to go home soon. Summary of Past History Records from [facility] received and reviewed: Patient admitted 07/01/2017 and discharged 07/25/2017. This was his first psychiatric hospitalization, and he presented with severe depressive symptoms in the context of his father dying by suicide at the age of 82. His only admission medication was hydrocodone as needed, which he was taking to boost mood. He also reported taking his 's Xanax at times. He reported being born and raised in [facility] by both of his parents. He is with no children, had 11th grade education, and had worked at [employer] for 18 years. He denied a h istory of abuse. He was diagnosed with MDD, SC, severe; opiate use disorder, mild-moderate; and alcohol use disorder, mild. While there, he was treated for alcohol withdrawal. He was discharged on melatonin 9 mg at bedtime, zolpidem 5 mg at bedtime, bupropion SR 100 mg twice daily, olanzapine 5 mg at bedtime, sertraline 200 mg daily, and trazodone 100 mg at bedtime. He was referred to [facility] for therapy and psychiatric care. Physical Exam Psychiatric Orientation: alert and cooperative (But a very limited historian) Unkempt, poor hygiene and grooming, malodorous. Dressed in paper scrubs, seated on the edge of his bed in no acute distress, eating dry cereal from the bag. Eye Contact: + fair eye contact Occasional mouth movements Minimal speech Affect: + blunted affect "All right." Thought Process: + concrete thought process Paucity of thought content Suicidal Thoughts: denies suicidal thoughts Homicidal Thoughts: denies homicidal thoughts Hallucinations: no auditory hallucinations Cognition: + recent memory not intact and + remote memory not intact Estimated Intelligence: + below average estimated intelligence Insight: + impaired insight Judgement: + impaired judgement Vital Signs (Past 24 Hours) Last Vital Signs Temp 36.3 C L 11/18/19 06:41 Pulse 62 11/18/19 06:42 Resp 18 11/18/19 06:41 BP 108/70 11/18/19 06:42 Pulse Ox 95 11/11/19 19:47 Results & Data ([facility]) Current Inpatient Medications Current Inpatient Medications: Current Inpatient Medications Acetaminophen (Tylenol) 650 mg PO Q4H PRN PRN Reason: Headache or Minor Fever Stop: 12/05/19 23:48 Al Hydrox/Mg Hydrox/Simethicone (Maalox) 30 ml PO Q4H PRN PRN Reason: GI Upset Stop: 12/05/19 23:48 Last Admin: 11/14/19 16:54 Dose: 30 ml Documented by: Benztropine Mesylate (Cogentin) 1 mg IM Q6H PRN PRN Reason: dystonia Stop: 12/07/19 12:17 Benztropine Mesylate (Cogentin) 1 mg PO Q6H PRN PRN Reason: dystonia Stop: 12/07/19 12:20 Last Admin: 11/08/19 09:40 Dose: 1 mg Documented by: Bismuth Subsalicylate (Kaopectate) 15 ml PO PRN PRN PRN Reason: Loose Stool Stop: 12/05/19 23:48 Escitalopram Oxal[facility] ([facility]ro Tab) [facility] Stop: 12/16/19 08:59 Last Admin: 11/18/19 10:11 Dose: 20 mg Documented by: Haloperidol (Haldol) 5 mg PO Q6H PRN PRN Reason: acute agitation/aggression Stop: 12/07/19 12:19 Last Admin: 11/08/19 09:40 Dose: 5 mg Documented by: Haloperidol Lactate (Haldol) 5 mg IM Q6H PRN PRN Reason: aggression/agitation Stop: 12/07/19 12:13 Hydroxyzine HCl (Vistaril) 50 mg PO HSZ PRN PRN Reason: Insomnia Stop: 12/05/19 23:48 Hydroxyzine HCl (Vistaril) 25 mg PO Q4H PRN PRN Reason: Anxiety Stop: 12/05/19 23:48 Lamotrigine (Lamictal) [facility] Stop: 12/07/19 08:59 Last Admin: 11/18/19 10:11 Dose: 25 mg Documented by: Lorazepam (Ativan) 2 mg IM Q6H PRN PRN Reason: Agitation Stop: 12/07/19 12:34 Lorazepam (Ativan) 1 mg PO Q6H PRN PRN Reason: agitation/aggression Stop: 12/07/19 13:04 Last Admin: 11/08/19 09:40 Dose: 1 mg Documented by: Magnesium Hydroxide (Milk Of Magnesia) 30 ml PO DAILY PRN PRN Reason: Constipation Stop: 12/05/19 23:48 Miscellaneous (Remove Nicoderm Patch) 1 ea N/A DAILY@0859 [facility] Stop: 12/06/19 08:58 Last Admin: 11/18/19 10:09 Dose: Not Given Documented by: Nicotine (Nicoderm Cq) 7 mg TD [facility] Stop: 12/06/19 08:59 Last Admin: 11/18/19 10:09 Dose: Not Given Documented by: Olanzapine (Zyprexa Zydis Od) 5 mg PO Q6 PRN PRN Reason: racing thoughts Stop: 12/15/19 13:07 Olanzapine (Zyprexa Zydis Od) 20 mg PO HS [facility] Stop: 12/16/19 21:59 Last Admin: 11/17/19 21:00 Dose: 20 mg Documented by: Sodium Chloride ([place] Nasal) 1 - 2 sprays NA PRN PRN PRN Reason: Nasal Dryness/Congestion Stop: 12/05/19 23:48 Mental Health & Subst Abuse Tx Therapist Name of Therapist: None Rig Hand Name of Rig Hand: None Post Discharge Appointments Primary Care Physician Name Of Family Doctor: [facility] - Reid Bolden PA-C Primary Care Date of Appointment with PCP: 11/25/19 Time of Appointment with PCP: 1:00 pm Provider Appointment Comment: [address], [address], [place] [address] Contact Information Discharge Discharge [address]: [address] [place] [address] [place] [address] (1) Depression Active/Remission status: currently active Depression Type: major depressive disorder Major depression episode severity: severe Major depression recurrence: single episode Psychotic features: with psychotic features Qualified Code(s): F32.3 - Major depressive disorder, single episode, severe with psychotic features
[2019-11-18] MEDS ORDERED: OLANZapine 20 MG TABLET PO SCH (22:00)
--- NOTE | 2019-11-19 08:47 | Discharge Summary ---
Date of Service November 19, 2019 History of Present Illness The patient is a 59-year-old man who was admitted last night through the emergency department after his neighbors observed that he was laying in the roadway of the street in front of his home, and the police were contacted. The patient reportedly has a history of recurrent major depressive episodes, as well as a history of several previous psychiatric hospitalizations. He has uncooperative and a poor/unreliable historian. His response to most questions are simply in the negative. When a review of systems was attempted, the patient answered in the negative as his response for every system reviewed. When asked if he had ever had any surgeries (within the context that it is known that he has had knee surgery) the patient said "no." When it was pointed out to him that his record shows that he had had knee surgery, he replied "no." He also of ten responds by saying "I am ." At one point he did allow that he was feeling depressed and acknowledges that he was thinking of committing suicide. When ask to reconcile his assertion that he is already with his assertion that he wants to commit suicide the patient stared straight ahead and said "I am ." The patient was asked how he might commit suicide, and he said "there are lots of ways." When he was asked if he was thinking of any one particular way, he said "there are lots of ways." When asked if he has ever taken any psychiatric medications he replied, "no." When several of his prescribed medications were mentioned to him he replied, "why should I take medicines? There is nothing wrong with me." The patient is oriented to person, place, time, but not necessarily to situation. He had initially refused to come into the examination room in order to be assessed, and when the undersigned went to speak with him in his bedroom he immediately passed gas and said "do my farts stink?" He was also observed engaging in disorganized behavior. For example, he picked up a pair of dice and began throwing them in the air and batting at them. He was also observed on several occasions talking in a somewhat animated fashion to an empty room or an empty chair in a manner that suggested that he was responding to internal stimuli. And at one point he spontaneously shouted out the word "Help!" But then denied that anything was wrong or that he was in any distress. The record indicates that the patient has a history of nonadherence with psychiatric medications. It is not clear at this point how far back the patient's depression extends him. His elderly father committed suicide by gunshot wound in 2016 and this may have been a precipitating event. His medication regimen has included mood stabilizers, but the record does not indicate a history of renata or hypomaniadespite a series of presentations in the emergency department for evaluation of depression and suicidal thoughts over the course of the last several years. The patient is reporting that he does not use alcohol. Old records indicate that at least several years ago he was consuming alcohol on a daily basis, but never to the point of intoxication. Physical Exam Psychiatric Orientation: alert, oriented x 3 (Location, year, and month, but not day or date) and cooperative Appears older than stated age, limited grooming and hygiene. Lying in bed awake and in no acute distress; sits up and participates in exam and MOCA when prompted. Eye Contact: + poor eye contact Minimal speech, soft, normal rate and tone. Affect: mood congruent with affect Stable, blunted. "All right." Thought Process: goal directed thought process and + concrete thought process Thought Content: reality based without delusions Suicidal Thoughts: denies suicidal thoughts Homicidal Thoughts: denies homicidal thoughts Hallucinations: no auditory hallucinations and no visual hallucinations Cognition: attention grossly intact and language grossly intact; + recent memory not intact and + remote memory not intact MOCA completed today: 12/09, missing 5 for visuospatial/executive, 1 for naming, 5 for attention, 2 for language, 2 for abstraction, 5 for delayed recall, and 4 for orientation. One point was added as he dropped out of school in the 11th grade. He had good effort and was cooperative with the evaluation. 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 On admission, it was reported that he had been nonadherent with his psychotropic medications, so he was restarted on lamotrigine 25 mg daily and duloxetine 40 mg daily with plans to re-titrate them to previous doses. Aripiprazole was discontinued and he was started on olanzapine to target mood and psychosis. The following day, duloxetine was discontinued due to concerns for activation, and he was started on escitalopram to target mood and anxiety. It was titrated to 20 mg daily, and olanzapine to 20 mg at bedtime. He completed the first 2 weeks of the lamotrigine titration, and it was increased to 50 mg daily on the day of discharge. He had a 303 hearing on 11/10/2019, which was granted. He consistently declined groups that his hospital stay, and spent most of his time in his room in bed. On hospital day #2, he had an episode of behavioral dyscontrol, with inappropriate sexualized and aggressive behaviors, during which he appeared paranoid and bizarre. He was grabbing at staff, exposing his genitals, and making lewd statements. This resolved and over the last week and a half in the hospital, he was in good behavioral control, with the exception of one episode 4 days prior to discharge where he exposed his genitals. This episode appeared different from the first in that the behavior appeared deliberate and in defiance, and resolved when ignored/redirected. He did not have any other manic or psychotic behavior or symptoms at the time. He reported improved mood and resolution of suicidal thoughts, and did not engage in self-injurious behavior. His paranoia improved, and he consistently denied hallucinations and did not endorse delusional thoughts. He reported episodic anxiety throughout his stay, and was poorly able to describe the symptoms or triggers, other than not wanting to return to his trailer as it was in poor shape and his grandson had been causing stress for he and his . He had little contact with his over the course of hospitalization, often declining her phone calls. His mother and 2 brothers were involved in treatment and participated in meetings; they offered to have the patient stay with his mother after discharge, and both he and his mother agreed to this plan, feeling he would have more support there than at his home. Cognitive impairment was noted throughout his stay. Lab work-up was ordered to look for reversible causes of cognitive impairment, including vitamin B12, which was normal. His head CT from 10/10/2019 was reviewed and showed patchy white matter hypodensities, likely small vessel disease. The differential includes vascular dementia, Alzheimer's dementia, alcoholic dementia, or frontotemporal dementia. A brain MRI was recommended as an outpatient, and follow-up scheduled with his PCP. He scored a 6/30 on the MOCA on the day of discharge, and given the excess dent of his cognitive impairment, a mandated report was made to [facility] and he was advised he is not medically cleared to drive. Family were advised of this as well, and expressed understanding. He does not shower or change out of his paper scrubs throughout the course of his hospitalization, despite support from staff and his family. His reported that he often goes months without showering or changing his clothes, and that this is not a new issue. He was unwilling to consider outpatient psychiatric care and therapy, and family thought it was unlikely he would attend these appointments, so plan was to continue medication management with his PCP. He did agree to a psychiatric home health nurse and case management rn through the [facility], with recommendations for mobile psych rehab so that someone could see him in his home and help him to continue to work towards his goals and stabilization. Day of Discharge Assessment Staff report the patient has been in good behavioral control, continues to isolate in his room, and declined groups. He is eating and sleeping well, and is calm and cooperative with interaction. On my assessment, he states that his mood is "all right," improved from admission, and continues to deny suicidal thoughts. He continues to report anxiety that "comes and goes," denies triggers, and cannot further clarify anxiety symptoms or worries. He remains in agreement to go and stay with his mother after discharge, and to continue medi cations. Discussed our recommendations for outpatient treatment, and he continues to decline psychiatry and therapy, but is willing for a psych home health nurse and case management rn. Participated in discharge planning meeting with social media senior associate and patient's 2 brothers. We attempted to contact his and mother to involve them in the meeting, but they were not able to be reached. The patient himself agreed to attend the meeting, but when it came time for it to start, he declined to get out of bed and attend, asking to be updated when it was over. Reviewed his diagnoses, course of treatment, current treatment recommendations, and answered multiple questions from his brothers. Reviewed the mandated [employer] reports and that patient is not medically stable to drive, and they expressed understanding and agreement. Transition of Care Transition Of Care Record: was reviewed with the patient Advance Directives Advance Directives Information Provided: Yes Advance Directives: No Mental Health Advance Directive: No Advance Directives on File: No Living Will: No Power of Student Life Coordinator: No Advance Directives Reason:: Declines as Mental Health Visit. Risk Factors Assessment Risk factors mitigated by admission to the inpatient unit, use of medications to target mood and psychotic symptoms, encouragement to attend groups and participate which she consistently declined, encouragement to improve grooming and hygiene which he declined, involvement of his family for discharge planning, recommendations to follow-up with outpatient mental health treatment (he agreed to a psych home health nurse and case management rn), treatment of comorbid medical conditions and work-up of cognitive disorder, submission of mandated reporting form to [facility] regarding recommendations that he not drive due to cognitive impairment, and follow-up with his PCP for continued work-up of cognitive impa irment and ongoing treatment/medications. He is reported improvement in mood and resolution of suicidal thoughts and psychotic symptoms, has been in good behavioral control, calm and cooperative, taking medications as prescribed, and eating and sleeping well. Hygiene remains poor, but this is a longstanding issue and does not present an acute risk of harm. He is no longer at acute risk of harm to himself or others, so can be discharged and managed as an outpatient at this time. Male: Yes : Yes Do You Have Access To A Gun?: No (Family confirmed guns are secured.) Health Problems: Yes Mental Health Diagnoses: Yes Substance Use Disorders: No Previous Attempt: Yes (Details of the previous attempt are not known at this time., Other than the attempt reportedly occurred within the past year or 2 and consisted of his swallowing a toxic overdose.) Family History of Suicide: Yes Previous Psychiatric Hospitalization: Yes Hopelessness: Yes Smoker: Yes Protective Factors Assessment Jain Beliefs: No : Yes Responsible for Young Children: No Employed: No (lost job a year ago) Stable Relationships: Yes Supportive Family: Yes Good Rapport with Provider: No Absence of Any Risk Factors Above: No Tobacco Cessation at Discharge Tobacco Cessation Medication Prescribed at Discharge: Offered & Prescribed Practical counseling provided including: recognizing danger situations, developing coping skills and providing basic information about quitting Tobacco Cessation Outpatient Followup: Outpatient referral made to (PCP) Total Time Total Time Spent: Greater Than 30 Minutes Total Time Includes: Examination of the patient, Discharge Planning, Medication Reconciliation and As well as (Discharge planning meeting with family) Discharge Data Lab Results 11/05/19 11/05/19 11/05/19 19:29 19:45 19:45 WBC RBC Hgb Hct MCV MCH MCHC RDW Std Deviation RDW Coeff of Bhavesh Plt Count MPV Immature Gran % (Auto) Neut % (Auto) Lymph % (Auto) Clarke % (Auto) Eos % (Auto) Baso % (Auto) Neut # (Auto) Lymph # (Auto) Clarke # (Auto) Eos # (Auto) Baso # (Auto) Immature Gran # (Auto) Carboxyhemoglobin Sodium Potassium Chloride Carbon Dioxide Anion Gap BUN Creatinine Est Cr Clr Drug Dosing Est GFR ( Amer) Est GFR (Non-Af Amer) BUN/Creatinine Ratio Glucose POC Glucose 101 H Fasting Glucose Calcium Total Bilirubin AST ALT Alkaline Phosphatase Total Protein Albumin Globulin Albumin/Globulin Ratio Triglycerides Cholesterol LDL Cholesterol, Calc VLDL Cholesterol, Calc HDL Cholesterol Cholesterol/HDL Ratio Vitamin B12 TSH Urine Color Yellow Urine Appearance Clear Urine pH 5.0 Ur Specific [place] 1.014 Urine Protein Negative Urine Glucose (UA) Negative Urine Ketones Negative Urine Blood Negative Urine Nitrite Negative Urine Bilirubin Negative Urine Urobilinogen Negative Ur Leukocyte Esterase Negative Salicylates Urine Opiates Screen Neg Ur Methadone, Qual Neg Acetaminophen Urine Barbiturates Neg Ur Phencyclidine (PCP) Neg U Amphetamin/Meth Scrn Neg MDMA (Ecstasy) Screen Neg U Benzodiazepines Scrn Neg Ur Cocaine Metabolite Neg U Marijuana (THC) Screen Neg Ethyl Alcohol mg/dL 11/05/19 11/05/19 11/05/19 20:04 20:04 20:04 WBC 6.53 RBC 5.16 Hgb 16.0 Hct 45.0 MCV 87.2 MCH 31.0 MCHC 35.6 RDW Std Deviation 40.8 RDW Coeff of Bhavesh 12.8 Plt Count 191 MPV 9.8 Immature Gran % (Auto) 0.2 Neut % (Auto) 58.5 Lymph % (Auto) 34.2 Clarke % (Auto) 6.0 Eos % (Auto) 1.1 Baso % (Auto) 0.0 Neut # (Auto) 3.83 Lymph # (Auto) 2.23 Clarke # (Auto) 0.39 Eos # (Auto) 0.07 Baso # (Auto) 0.00 Immature Gran # (Auto) 0.01 Carboxyhemoglobin Sodium 140 Potassium 3.7 Chloride 105 Carbon Dioxide 31 Anion Gap 4.0 BUN 8 Creatinine 0.95 Est Cr Clr Drug Dosing 81.7 Est GFR ( Amer) 99.7 Est GFR (Non-Af Amer) 86.1 BUN/Creatinine Ratio 8.0 L Glucose 86 POC Glucose Fasting Glucose Calcium 9.4 Total Bilirubin 0.6 AST 14 L ALT 21 Alkaline Phosphatase 59 Total Protein 7.6 Albumin 3.9 Globulin 3.7 Albumin/Globulin Ratio 1.1 Triglycerides Cholesterol LDL Cholesterol, Calc VLDL Cholesterol, Calc HDL Cholesterol Cholesterol/HDL Ratio Vitamin B12 TSH 1.040 Urine Color Urine Appearance Urine pH Ur Specific [place] Urine Protein Urine Glucose (UA) Urine Ketones Urine Blood Urine Nitrite Urine Bilirubin Urine Urobilinogen Ur Leukocyte Esterase Salicylates < 1.7 L Urine Opiates Screen Ur Methadone, Qual Acetaminophen < 2 L Urine Barbiturates Ur Phencyclidine (PCP) U Amphetamin/Meth Scrn MDMA (Ecstasy) Screen U Benzodiazepines Scrn Ur Cocaine Metabolite U Marijuana (THC) Screen Ethyl Alcohol mg/dL 11/05/19 11/05/19 11/10/19 20:04 20:04 07:31 WBC RBC Hgb Hct MCV MCH MCHC RDW Std Deviation RDW Coeff of Bhavesh Plt Count MPV Immature Gran % (Auto) Neut % (Auto) Lymph % (Auto) Clarke % (Auto) Eos % (Auto) Baso % (Auto) Neut # (Auto) Lymph # (Auto) Clarke # (Auto) Eos # (Auto) Baso # (Auto) Immature Gran # (Auto) Carboxyhemoglobin 0.0 Sodium Potassium Chloride Carbon Dioxide Anion Gap BUN Creatinine Est Cr Clr Drug Dosing Est GFR ( Amer) Est GFR (Non-Af Amer) BUN/Creatinine Ratio Glucose POC Glucose Fasting Glucose 91 Calcium Total Bilirubin AST ALT Alkaline Phosphatase Total Protein Albumin Globulin Albumin/Globulin Ratio Triglycerides 85 Cholesterol 222 H LDL Cholesterol, Calc 161 VLDL Cholesterol, Calc 17 HDL Cholesterol 44 Cholesterol/HDL Ratio 5 Vitamin B12 TSH Urine Color Urine Appearance Urine pH Ur Specific [place] Urine Protein Urine Glucose (UA) Urine Ketones Urine Blood Urine Nitrite Urine Bilirubin Urine Urobilinogen Ur Leukocyte Esterase Salicylates Urine Opiates Screen Ur Methadone, Qual Acetaminophen Urine Barbiturates Ur Phencyclidine (PCP) U Amphetamin/Meth Scrn MDMA (Ecstasy) Screen U Benzodiazepines Scrn Ur Cocaine Metabolite U Marijuana (THC) Screen Ethyl Alcohol mg/dL < 3.0 11/11/19 11/12/19 11/12/19 11:17 08:48 08:48 WBC 5.72 RBC 5.49 Hgb 16.7 Hct 47.9 MCV 87.2 MCH 30.4 MCHC 34.9 RDW Std Deviation 41.1 RDW Coeff of Bhavesh 12.8 Plt Count 181 MPV 9.2 Immature Gran % (Auto) 0.2 Neut % (Auto) 50.3 Lymph % (Auto) 39.7 Clarke % (Auto) 7.9 Eos % (Auto) 1.7 Baso % (Auto) 0.2 Neut # (Auto) 2.88 Lymph # (Auto) 2.27 Clarke # (Auto) 0.45 Eos # (Auto) 0.10 Baso # (Auto) 0.01 Immature Gran # (Auto) 0.01 Carboxyhemoglobin Sodium 141 Potassium 4.0 Chloride 107 Carbon Dioxide 29 Anion Gap 5.0 BUN 23 H Creatinine 1.21 Est Cr Clr Drug Dosing 64.1 Est GFR ( Amer) 74.4 Est GFR (Non-Af Amer) 64.2 BUN/Creatinine Ratio 19.0 Glucose 87 POC Glucose Fasting Glucose Calcium 9.5 Total Bilirubin 0.6 AST 13 L ALT 19 Alkaline Phosphatase 59 Total Protein 7.4 Albumin 3.6 Globulin 3.8 Albumin/Globulin Ratio 0.9 Triglycerides Cholesterol LDL Cholesterol, Calc VLDL Cholesterol, Calc HDL Cholesterol Cholesterol/HDL Ratio Vitamin B12 889 TSH Urine Color Urine Appearance Urine pH Ur Specific [place] Urine Protein Urine Glucose (UA) Urine Ketones Urine Blood Urine Nitrite Urine Bilirubin Urine Urobilinogen Ur Leukocyte Esterase Salicylates Urine Opiates Screen Ur Methadone, Qual Acetaminophen Urine Barbiturates Ur Phencyclidine (PCP) U Amphetamin/Meth Scrn MDMA (Ecstasy) Screen U Benzodiazepines Scrn Ur Cocaine Metabolite U Marijuana (THC) Screen Ethyl Alcohol mg/dL 11/13/19 07:10 WBC RBC Hgb Hct MCV MCH MCHC RDW Std Deviation RDW Coeff of Bhavesh Plt Count MPV Immature Gran % (Auto) Neut % (Auto) Lymph % (Auto) Clarke % (Auto) Eos % (Auto) Baso % (Auto) Neut # (Auto) Lymph # (Auto) Clarke # (Auto) Eos # (Auto) Baso # (Auto) Immature Gran # (Auto) Carboxyhemoglobin Sodium Potassium Chloride Carbon Dioxide Anion Gap BUN Creatinine Est Cr Clr Drug Dosing Est GFR ( Amer) Est GFR (Non-Af Amer) BUN/Creatinine Ratio Glucose POC Glucose Fasting Glucose Calcium Total Bilirubin AST ALT Alkaline Phosphatase Total Protein Albumin Globulin Albumin/Globulin Ratio Triglycerides Cholesterol LDL Cholesterol, Calc VLDL Cholesterol, Calc HDL Cholesterol Cholesterol/HDL Ratio Vitamin B12 TSH Urine Color Dark Yellow Urine Appearance Clear Urine pH 5.0 Ur Specific [place] 1.032 H Urine Protein Negative Urine Glucose (UA) Negative Urine Ketones Negative Urine Blood Negative Urine Nitrite Negative Urine Bilirubin Negative Urine Urobilinogen Negative Ur Leukocyte Esterase Negative Salicylates Urine Opiates Screen Ur Methadone, Qual Acetaminophen Urine Barbiturates Ur Phencyclidine (PCP) U Amphetamin/Meth Scrn MDMA (Ecstasy) Screen U Benzodiazepines Scrn Ur Cocaine Metabolite U Marijuana (THC) Screen Ethyl Alcohol mg/dL Hospital Course (1) Threatening suicide: 11/06/19 -The patient was observed laying in the road in front of his house last evening and he continues to endorse suicidal ideation. -Patient will be closely monitored on suicide precautions 11/09 - Patient denying SI but reporting ongoing depression. 11/11 -Staff to contact to discuss recommendations to either remove or secure guns so the patient does not have access, given patient's cognitive impairment, depression, history of suicide attempt, and recent SI. 11/16 -staff confirm family secured guns and patient will not have access. He will be going to live with his mother, with support from multiple family members/brother. (2) Depression: 11/06/19 -The patient has been admitted to the [facility] behavioral health unit and placed on suicide precautions with close observation. He is also been placed in a medically necessary private room and has been referred for individual, group, and activity therapies and is being encouraged to attend and participate. We will also work to gather additional information from his and will plan to hold a telephonic family meeting if the patient agrees. -Patient's outpatient medications reportedly include lamotrigine 100 mg a day, duloxetine 60 mg a day, hydroxyzine 50 mg once a day "as needed," and aripiprazole 15 mg daily. In the past, he has taken venlafaxine. There is a long history of nonadherence, and it is not clear when the patient took any of these medications. Currently, we do not know when the patient took lamotrigine most recently and we are reluctant to prescribe lamotrigine at 100 mg a day. Instead, we will again lamotrigine at 25 mg a day and titrate as indicated. We will be placed on duloxetine 40 mg a day. (This is lower than his outpatient dose, but, again, he evidently has not been taking it.) As needed hydroxyzine has been ordered. We have decided to hold aripiprazole for the time being in favor of Zyprexa Zydis starting at 5 mg and titrating as indicated. 11/06 -Patient giving inconsistent self-report regarding thoughts of self-harm but again acknowledges today wish as per HPI -We will continue Cymbalta at reduced dose for now. Certainly this type of presentation seems atypical for psychosis associated with major depressive disorder and I am concerned for increasing his activation -We will need to hold the Lamictal re-titration if he remains noncompliant or sporadically compliant with p.o. medication 11/07 -Discontinue reduced dose of Cymbalta and substitute lexapro 10 mg daily chosen for reduced activation potential as compared to SNRI. 11/08 -Continue escitalopram and lamotrigine titrations. -303 hearing scheduled for tomorrow. Patient indicates willingness for inpatient treatment at this time. 11/09 -303 granted. -Increase escitalopram to 15mg daily to target depression. -Continue lamotrigine and olanzapine. Reviewed fasting labs for monitoring on an atypical antipsychotic: cholesterol 222, remainder WNLs. -Patient not yet able to tolerate groups or a family meeting. He will also need referrals for outpatient mental health treatment. 11/10 -Workup for psychosis and cognitive impairment. Fluid and electrolyte disturbance, infectious process, UTI, substance use, liver disease, and thyroid disease ruled out as part of pre-admission medical work-up; will also check vitamin B12, and recommend brain MRI as an outpatient. Will need follow-up with PCP. -Continue escitalopram 15 mg, lamotrigine 25 mg, and olanzapine 10 mg at bedtime. Consider reducing the dose of olanzapine in the next 1 to 2 days if he remains excessively somnolent. 11/11 -Patient reports improved mood but ongoing paranoia, thoughts that the world is ending. He continues to isolate in bed, has not yet showered, and has very poor grooming and hygiene. Encouraged him to be out of bed, participating in treatment. -Continue medications as above. -Patient appears confused and cognitively impaired, and given staff reports of poor fluid intake and rust colored urine, ordered UA but he has not yet provided a sample. Also rechecked CMP and CBC for signs of infection given AMS and hypotension, but lab work was normal. B12 level 889. 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 Will shift Zyprexa to hs dosing and increase to 15 mg daily with attempt to increase activity during the day as no evidence of disinhibition yesterday and poor PO. Add boost and change diet to more soft foods. May need formal Is and Os. Consider ECT referral though he would be unable to consent at this time and need to further review medical history. 11/13--titrate lexapro to 20 mg tomorrow for residual depressive symptoms as no evidence of activation this weekend, consider Zyprexa 20 mg starting tomorrow night, for today monitoring sedation and lip movements. 11/15--titrate Zyprexa to 20 mg tonight, target dosing for both SSRI and Zyprexa. Slightly more organized but unable to meet basic needs for nutrition and hygiene without hospital support, eating improved. 11/16 -mood improved, ongoing anxiety. Patient isolating in bed, declining most groups. Staff encouraging him to shower. Self-care poor at baseline. Continue to explore discharge plans with family. 11/17 -patient remains isolative to his bed, refusing to shower, with poor hygiene and grooming. He is consistently denying suicidality, and is tolerating his recent medication adjustments well. He is refusing referral for psychiatry and therapy, so will be following up with his PCP. 11/18 -discharge planning meeting held with family. -Prescriptions issued for 30-day supply. Follow-up with PCP, patient declining psychiatric care and therapy. -Patient agreed to [facility] for psych home health nursing, and to [facility] for case management. He may benefit from a mobile psych rehab worker. (3) Psychosis: 11/06 -Patient demonstrating an appropriate sexualized and aggressive behaviors, appears paranoid, bizarre -Admission labs reviewed and essentially unremarkable. Reviewed head CT from 11/05/2019 indicating no acute process. Previous head CT from October 10, 2019 noted patchy white matter hypodensities likely small vessel disease. That CT was checked for worsening tremor. Ne recent etoh use known. Vital signs do not support likelihood of withdrawal. urine tox neg. -Will increase standing olanzapine to 10 mg p.o. tomorrow a.m. -Patient received Haldol 5 mg as needed (in combination with Ativan and Cogentin) for acute agitation not responsive to nonpharmacological interventions today 11/07 -Etiology for acute psychosis remains unclear. Medical work-up at admission not suspicious for obvious etiology for delirium. Nursing reported possible blood in urine however he has been urinating on the floor and obtaining a sample for repeat urinalysis with culture may prove difficult but should be considered -Cannot rule out underlying progressive neurocognitive disorder with stepwise decompensation. Early age of onset, behavior and personality changes greater than memory loss might suggest frontotemporal etiology however more likely mixed etiology with evidence of cerebrovascular disease on most recent neuroimaging and extensive alcohol abuse history. -We will continue to utilize Haldol 5 mg, Ativan 1 mg, Cogentin 1 mg every 6 hours as needed's for acute behavioral disturbance. -Patient has been accepting of medications and unlikely to improve without pharmacotherapy. Due to impaired insight secondary to psychosis, treatment over objection may be necessary and is felt to be appropriate in my clinical opinion -Over the last 24 hours, intensity and frequency of aggression and sexualized behaviors is modestly improved. However, if trend does not continue positively, would recommend consideration for Risperdal as alternative to olanzapine and possibly a Depakote trial as well. 11/08 -Improved behavioral control so far today, continue to utilize PRN medications as these appear to have been beneficial. Continue olanzapine 10 mg at bedtime, and order fasting labs for tomorrow. -Rule out delirium: Reviewed labs which were normal at the time of admission. Have attempted to get a repeat UA, but patient has been unwilling/unable to provide a sample. He denies UTI symptoms. He has had multiple head CTs in the past 2 months which were negative for acute intracranial abnormality. No current signs of alcohol withdrawal. Differential includes psychotic mood disorder, dementing process, occult medical issue. -Continue private room until he improves and is able to maintain behavioral control. Excused from groups until able to demonstrate appropriate behavior. -Will need family meeting with and referrals for outpatient treatment once able to tolerate these discussions. 11/10 -Reviewed fasting labs; glucose 91, FLP notable for cholesterol 222. 11/12 as above. 11/14--more organized 11/16--exposing self yesterday was more defiance than disorganized 11/17 -good behavioral control for the past 2 days. No psychosis on exam. 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 Mandated [employer] paperwork submitted, given concerns for impaired cognition. 11/18 -psychosis resolved. Continue olanzapine. (4) Neurocognitive disorder: Differential includes alcoholic dementia, Alzheimer's dementia, frontotemporal dementia, and cardiovascular, or some combination Scored very low on the [place] today, 11/09. One point added due to 11th grade education, so final score 12/09. Mandated report made to Alcides BRANNON regarding recommendations that he not drive. Follow-up with PCP; recommend brain MRI, consider neuropsych testing. Mental Health & Subst Abuse Tx Therapist Name of Therapist: None Epidemiologist Name of Epidemiologist: None Post Discharge Appointments Primary Care Physician Name Of Family Doctor: [facility] - Reid Bolden PA-C Primary Care Date of Appointment with PCP: 11/25/19 Time of Appointment with PCP: 1:00 pm Provider Appointment Comment: [address] [facility] [address], [address], [place] [address] Smoking Cessation Counseling Tobacco Cessation Medication Prescribed at Discharge: Offered & Prescribed Contact Information Discharge Discharge Address: [address] [place] [id number] Discharge Plan Discharge Items Patient Disposition: Home - Self-Care Reason For Visit: DEPRESSION RECURRENT Discharge Diagnosis: Depression Activity: Per Instructions section Driving/Machine Use: No driving until medically cleared by your doctor Non-emergency contact: Primary Care Provider Call non-emergency contact if: you have any medication questions and your symptoms worsen Follow-up/Referrals: Reid Bolden PA-C [Primary Care Provider] - Diet: Regular Diet Texture: Dental soft (bite-sized) Addtl Attending Provider Instructions: SPECIAL CARE INSTRUCTIONS: 1. Follow through with your scheduled aftercare appointments. If unable to keep an appointment, please call to reschedule. We recommended you follow-up with a psychiatrist and therapist, but you declined. Follow-up with your PCP as scheduled. Follow up with home health nursing. We recommend working with a case management rn through [facility], and [facility]. 2. Take your medication only as prescribed. Medication should not be changed or stopped without the approval of your doctor. In the event of worsening symptoms or concerns about side effects, contact your doctor immediately. 3. Utilize new healthy coping skills, anger management skills, and stress management skills learned during your hospitalization. Journal feelings and process them with a support person. Identify stressors or situations that may result in relapse, deterioration or inappropriate behaviors and develop a plan to deal with those issues. 4. If your coping skills are ineffective and you are in crisis, contact your outpatient providers for direction. If unable to reach your providers, please call the CAN HELP LINE AT or go to the closest Emergency Room. 5. You should not drink alcohol or take un-prescribed drugs. 6. You have been provided with the Mental Health Advance Directives Pamphlet for your review. You are not medically stable to drive. Mandated [employer] report has been made. Do not drive until you have stabilized and been medically cleared by your physician. AFTERCARE APPOINTMENTS: * Please call your insurance company prior to your scheduled appointment to confirm your aftercare providers are covered. Take your insurance information to your appointments. WHO TO CALL AND WHEN: Medical Emergencies: For questions or emergencies related to your hospital stay, please contact the Inpatient Behavioral Health Unit at [phone]. A artist suspect is on-call 03/12 for the Behavioral Health Unit for emergencies At any time you feel your situation is an emergency, you may also call 911 immediately. Your Doctors Instructions noted above were prepared by provider Megan De Guzman MD. Pending Studies at Discharge: No Stand-Alone Forms: My REQQI, Smoking Cessation Medications and DC Order Prescriptions: New escitalopram oxalate 20 mg Tablet 20 mg PO QAM Qty: 30 RF: 0 lamotrigine [Lamictal] 25 mg Tablet 50 mg PO QAM Qty: 60 RF: 0 olanzapine [Zyprexa] 20 mg Tablet 20 mg PO HS Qty: 30 RF: 0 Discontinued diphenhydramine HCl 50 mg capsule 50 mg DAILY PRN (Reason: Sleep) RF: 0 lamotrigine 100 mg tablet 100 mg PO DAILY RF: 0 aripiprazole 15 mg tablet 15 mg PO DAILY RF: 0 duloxetine 60 mg capsule,delayed release(DR/EC) 60 mg PO DAILY RF: 0 Discharge Orders: Discharge Order (Routine); Ordered 11/19/19 Ordered By: Megan De Guzman Admission Data Admit Date/Time: 11/05/19 23:05 Attending Provider: Megan De Guzman Admit Provider: Judy Sterling Primary Care Provider: Reid Bolden Other Interventions: PSY Interdisciplinary Discharge Planning Last Done: 11/16/19 15:22 Coding Level of Care Code 60038 D/C day mgmt > 30 min Diagnoses Threatening suicide R45.851 Depression F32.3 Active/Remission status: currently active Depression Type: major depressive disorder Major depression episode severity: severe Major depression recurrence: single episode Psychotic features: with psychotic features Psychosis F29 Neurocognitive disorder R41.9
[2019-11-19] MEDS ORDERED: lamoTRIgine 25 MG TAB PO SCH (09:00)
[2019-11-19] MEDS: ESCITALOPRAM OXALATE 20 MG TAB PO SCH (09:30)
[2019-11-19] MEDS: NICOTINE 7 MG/24 HR TDSY TD SCH (09:31)
== END 2019-11-19 15:55 | disposition home or self-care (01) | DRG 885 ==
LOC: ED 19:21 → 3S 23:05 → SUATTDRO 23:05 → 3S 23:37

== ENCOUNTER 2023-04-10 01:52 | Inpatient (IN) ==
[2023-04-10 03:29] LABS: Basophils # (auto) 0.02 K/uL (0.00-0.20); Basophils % (auto) 0.2 %; Eosinophils # (auto) 0.03 K/uL (0.00-0.50); Eosinophils % (auto) 0.3 %; Hematocrit (blood only) 41.8 % (42.0-52.0); Hemoglobin 13.6 g/dl (14.0-18.0); Immature Granulocytes # (auto) 0.04 K/uL (0.01-0.20); Immature Granulocytes % (auto) 0.4 %; Lymphocytes # (auto) 1.05 K/uL (1.20-3.40); Lymphocytes % (auto) 10.3 %; Mean Corpuscular Hemoglobin 29.4 pg (25.0-34.0); Mean Corpuscular Hgb Conc 32.5 g/dL (32.0-36.0); Mean Corpuscular Volume 90.3 fL (80.0-100.0); Mean Platelet Volume 10.4 fL (9.4-12.4); Monocytes # (auto) 0.44 K/uL (0.11-0.59); Monocytes % (auto) 4.3 %; Neutrophils # (auto) 8.61 K/uL (1.40-6.50); Neutrophils % (auto) 84.5 %; Platelet Count 228 K/uL (130-400); RDW Coefficient of Variation 12.5 % (11.5-14.5); RDW Standard Deviation 40.9 fL (36.4-46.3); Red Blood Count 4.63 M/uL (4.70-6.10); White Blood Count 10.19 K/ul (4.8-10.8)
[2023-04-10 03:44] LABS: Albumin Globulin Ratio 1.6 (0.9-2); Albumin Level 4.1 gm/dl (3.4-5.0); BUN Creatinine Ratio 15.9 (10-20); Bilirubin,Total 0.5 mg/dl (0.2-1.0); Creatinine Clr Calc Pharmacy 89.8 ml/min; Est GFR (African American) 107.6 ml/min; Est GFR (Non-African American) 92.8 ml/min; Globulin 2.6 gm/dl (2.5-4.0); Magnesium 1.8 mg/dl (1.7-2.4); Potassium 3.7 mmol/L (3.5-5.1); Total Protein 6.7 gm/dl (6.0-8.3)
[2023-04-10 03:50] LABS: Troponin I High Sensitivity 7.1 pg/ml (0-20)
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
--- OUTSIDE RECORDS SUMMARY | 2023-04-10 04:16 | External Medical Summary ---
Author Name Unknown Address Unknown Organization [id number][facility] [address] [place] [address] Laboratory Report Ordering Provider Test Date Status KINGSLEY SADLER 02/16/2023 06:21:17 Final Observation Date Value Abnormality Reference (Units ) Status WBC, Total 02/16/2023 06:21:17 8.05 4.00-10.8 0 (K/uL) Final RBC 02/16/2023 06:21:17 4.64 4.50-5.25 (M/uL) Final Hemoglobin 02/16/2023 06:21:17 13.9 Below low normal 14 .0-16.8 (g/dL) Final HCT 02/16/2023 06:21:17 42.1 40.0-48.4 (%) Final MCV 02/16/2023 06:21:17 90.7 82.0-99.5 (fL) Final MCH 02/16/2023 06:21:17 30.0 27.0-34.0 (pg) Final MCHC 02/16/2023 06:21:17 33.0 32.0-36.0 (g/dL) Final RDW 02/16/2023 06:21:17 12.7 11.5-15.5 (%) Final Platelets 02/16/2023 06:21:17 202 140-400 (K /uL) Final MPV 02/16/2023 06:21:17 10.0 6.6-11.1 ( fL) Final Performing Location LAB[facility]ATORY [facility] [address] [place] [address]
--- OUTSIDE RECORDS SUMMARY | 2023-04-10 04:16 | External Medical Summary ---
Author Name Unknown Address Unknown Organization K09:LABORATORY [facility] [address] [place] [address] Laboratory Report Ordering Provider Test Date Status KINGSLEY SADLER 02/12/2023 06:05:00 Final Observation Date Value Abnormality Reference (Units ) Status BUN 02/12/2023 06:05:00 19 6-20 (mg/dL) Final Creatinine 02/12/2023 06:05:00 1.0 0.6-1.2 (mg/dL) Final Glomerular filtration rate/1.73 sq M.predicted [Volume Rate/Area] in Serum, Plasma or Blood by Creatinine-based formula (CKD-EPI) 02/12/2023 06:05:00 84 >=60 (mL/min) Final eGFR is calculated based on the CKD-EPI 2020 equation SODIUM 02/12/2023 06:05:00 141 135-146 (m mol/L) Final Potassium 02/12/2023 06:05:00 3.9 3.5-5.1 (m mol/L) Final Cl 02/12/2023 06:05:00 100 98-107 (mm ol/L) Final CO2 02/12/2023 06:05:00 28 22-32 (mmo l/L) Final Anion gap 02/12/2023 06:05:00 13 7-15 (mmol /L) Final Glucose 02/12/2023 06:05:00 80 70-120 (mg /dL) Final Albumin 02/12/2023 06:05:00 4.3 3.8-5.0 (g /dL) Final AST (Aspartate aminotransferase) 02/12/2023 06:05:00 15 10-50 (U/L) Final Alk Phos 02/12/2023 06:05:00 51 35-130 (U/ L) Final Bilirubin, Total 02/12/2023 06:05:00 0.3 <=1 .2 (mg/dL) Final Calcium 02/12/2023 06:05:00 9.3 8.4-10.2 ( mg/dL) Final Protein 02/12/2023 06:05:00 6.4 6.0-8.3 (g /dL) Final ALT (Alanine aminotransferase) 02/12/2023 06:05:00 12 10-50 (U/L) Final Performing Location LABORATORY [facility] [address] [place] [address]
--- OUTSIDE RECORDS SUMMARY | 2023-04-10 04:16 | External Medical Summary ---
Author Name Unknown Address Unknown Organization K0G:LAB[facility]ATORY [place] [address] [place] [address] Laboratory Report Ordering Provider Test Date Status KINGSLEY SADLER 02/16/2023 06:21:17 Final Observation Date Value Abnormality Reference (Units ) Status BUN 02/16/2023 06:21:17 13 6-20 (mg/dL) Final Creatinine 02/16/2023 06:21:17 1.0 0.6-1.2 (mg/dL) Final Glomerular filtration rate/1.73 sq M.predicted [Volume Rate/Area] in Serum, Plasma or Blood by Creatinine-based formula (CKD-EPI) 02/16/2023 06:21:17 87 >=60 (mL/min) Final eGFR is calculated based on the CKD-EPI 2020 equation SODIUM 02/16/2023 06:21:17 139 135-146 (m mol/L) Final Potassium 02/16/2023 06:21:17 4.4 3.5-5.1 (m mol/L) Final Cl 02/16/2023 06:21:17 103 98-107 (mm ol/L) Final CO2 02/16/2023 06:21:17 25 22-32 (mmo l/L) Final Anion gap 02/16/2023 06:21:17 11 7-15 (mmol /L) Final Glucose 02/16/2023 06:21:17 94 70-120 (mg /dL) Final Calcium 02/16/2023 06:21:17 9.4 8.4-10.2 ( mg/dL) Final Performing Location LABORATORY [facility] [place] [address] [place] [address]
--- OUTSIDE RECORDS SUMMARY | 2023-04-10 04:16 | External Medical Summary | Summary of Care ---
Author Name Unknown Organization [facility] Address [address] [place] [address] Phone [phone] Care Team Providers Care Svp Group Director Name Role Phone Reid Bolden PA-C Primary Care Provider + Reason for Visit * Reason Onset Date Comments Appointment Canceled 04/08/2023 Encounter Details Date Type Department Care Team ([facility] st Contact Info) Description 04/08/2023 Telephone Neurology, [place] [address] [place] [address] Specified, [place] No Resource [address] [place] [address] Appointment Canceled Allergies No known active allergiesdocumented as of this encounter (statuses as of 04/08/2023) Medications Medication Sig Dispensed Refills Start Date End Date Status Incontinence Brief Large Use as needed, change once soiled 18 Each 11/20/2021 Active Donepezil HCl 10 MG Oral Tablet (Aricept) Take 1 Tablet by mouth daily with breakfast. Start this dose after finishing 5 mg tablets. 90 Tablet 3 11/09/2022 Active documented as of this encounter (statuses as of 04/08/2023) Active Problems No known active problems documented as of this encounter (statuses as of 04/08/2023) Social History Tobacco Use Types Packs/Day Years Used Date Smoking Tobacco: Some Days Cigarettes 2.5 Smokeless Tobacco: Never Alcohol Use Standard Drinks/Week Comments Not Currently 0 (1 standard drink = 0.6 oz pure alcohol) 30 pack a weekend some times during the week Sex and Gender Information Value Date Recorded Sex Assigned at Not on file Gender Identity Not on file Sexual Orientation Not on file Job Start Date Occupation Industry Not on file Not on file Not on file documented as of this encounter Miscellaneous Notes * Telephone Encounter - Simi Colunga OSA - 04/08/2023 2:38 PM EST Lmom to cx and reschedule appt from 04/[address] Christensen due to a change in provider schedule, pt may be rescheduled in one of Dr Christensen acute slots this week if pt is able, can be either video or in person documented in this encounter Plan of Treatment Health Maintenance Due Date Last Done Comments COVID-19 Vaccine (#1) 1960 Pneumococcal Vaccine: 65+ Years (1 - PCV) 1964 Depression Screening 1970 HIV Screening 1973 Hepatitis C Screening 1976 DTaP,Tdap,and Td Vaccines (1 - Tdap) 1977 Cologuard 2003 Colonoscopy 2003 Colorectal Cancer Screening 2003 Fecal Occult Blood Test 2003 Sigmoidoscopy 2003 Zoster Vaccines (1 of 2) 2008 Influenza Vaccine (FLU shot) (#1) 2023 03/23/2016, 02/25/2013 AAA Screening 2023 Lipid Panel 06/05/2027 06/05/2022 GARDASIL-HPV IMMUNIZATION SERIES [...] Not on filedocumented as of this encounter Care Teams Svp Group Director Relationship Specialty Start Date End Date Reid Bolden PA-C [address] [place] [address] PCP - General Physician Poleyard Supervisor 08/17/20 documented as of this encounter
--- OUTSIDE RECORDS SUMMARY | 2023-04-10 04:16 | External Medical Summary | Summary of Care ---
Author Name Unknown Organization [facility] Address [address] [place] [address] Phone [phone] Care Team Providers Care Lead Systems Architect Name Role Phone Reid Bolden PA-C Primary Care Provider + Reason for Visit * Reason Onset Date Comments Appointment 03/11/2023 Encounter Details Date Type Department Care Team ([facility] st Contact Info) Description 03/11/2023 Telephone [facility] [place] [address] [place] [address] Karissa Myers MD [address] [place] [address] Appointment Allergies No known active allergiesdocumented as of this encounter (statuses as of 03/11/2023) Medications Medication Sig Dispensed Refills Start Date End Date Status Incontinence Brief Large Use as needed, change once soiled 18 Each 11/20/2021 Active Donepezil HCl 10 MG Oral Tablet (Aricept) Take 1 Tablet by mouth daily with breakfast. Start this dose after finishing 5 mg tablets. 90 Tablet 3 11/09/2022 Active documented as of this encounter (statuses as of 03/11/2023) Active Problems No known active problems documented as of this encounter (statuses as of 03/11/2023) Social History Tobacco Use Types Packs/Day Years [...] encounter Miscellaneous Notes * Telephone Encounter - Karissa Myers MD - 03/11/2023 2:35 PM EDT Patient was scheduled for a return video visit at 2:20 pm on 03/11/2023 Patient did not sign in for the video visit. Attempted to call the patient in home number as well as 's phone. Patient could not be reached. documented in this encounter Plan of Treatment [...] filedocumented as of this encounter Care Teams Lead Systems Architect Relationship Specialty Start Date End Date Reid Bolden PA-C [address] [place] [address] PCP - General Physician University Librarian 08/17/20 documented as of this encounter
--- OUTSIDE RECORDS SUMMARY | 2023-04-10 04:17 | External Medical Summary ---
Author Name Unknown Address Unknown Organization K0G:LABORATORY [facility] [place] [address] [place] [address] Laboratory Report Ordering Provider Test Date Status KINGSLEY SADLER 02/09/2023 06:45:00 Final Observation Date Value Abnormality Reference (Units ) Status BUN 02/09/2023 06:45:00 14 6-20 (mg/dL) Final Creatinine 02/09/2023 06:45:00 0.9 0.6-1.2 (mg/dL) Final Glomerular filtration rate/1.73 sq M.predicted [Volume Rate/Area] in Serum, Plasma or Blood by Creatinine-based formula (CKD-EPI) 02/09/2023 06:45:00 >90 >=60 (mL/min) Final eGFR is calculated based on the CKD-EPI 2020 equation SODIUM 02/09/2023 06:45:00 142 135-146 (m mol/L) Final Potassium 02/09/2023 06:45:00 3.7 3.5-5.1 (m mol/L) Final Cl 02/09/2023 06:45:00 104 98-107 (mm ol/L) Final CO2 02/09/2023 06:45:00 27 22-32 (mmo l/L) Final Anion gap 02/09/2023 06:45:00 11 7-15 (mmol /L) Final Glucose 02/09/2023 06:45:00 81 70-120 (mg /dL) Final Calcium 02/09/2023 06:45:00 9.3 8.4-10.2 ( mg/dL) Final Performing Location LABORATORY [facility] [place] [address] [place] [address]
--- OUTSIDE RECORDS SUMMARY | 2023-04-10 04:17 | External Medical Summary ---
Author Name Unknown Address Unknown Organization [facility] [address] [place] [address] Laboratory Report Ordering Provider Test Date Status KINGSLEY SADLER 02/09/2023 06:45:00 Final Observation Date Value Abnormality Reference (Units ) Status WBC, Total 02/09/2023 06:45:00 6.32 4.00-10.8 0 (K/uL) Final RBC 02/09/2023 06:45:00 4.77 4.50-5.25 (M/uL) Final Hemoglobin 02/09/2023 06:45:00 14.2 14.0-16.8 (g/dL) Final HCT 02/09/2023 06:45:00 42.2 40.0-48.4 (%) Final MCV 02/09/2023 06:45:00 88.5 82.0-99.5 (fL) Final MCH 02/09/2023 06:45:00 29.8 27.0-34.0 (pg) Final MCHC 02/09/2023 06:45:00 33.6 32.0-36.0 (g/dL) Final RDW 02/09/2023 06:45:00 12.5 11.5-15.5 (%) Final Platelets 02/09/2023 06:45:00 192 140-400 (K /uL) Final MPV 02/09/2023 06:45:00 10.3 6.6-11.1 ( fL) Final Performing Location LABORATORY [facility] [place] [address] [place] [address]
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
--- NOTE | 2023-04-10 04:46 | Emergency Department Note ---
ED Visit Note I was consulted by the Advanced Practice Provider. I personally approved the management plan and take responsibility for the patient management. I performed a substantive portion of the visit. This includes the aspects of: -MDM -I independently interpreted the following studies: Labs and EKG. .
--- NOTE | 2023-04-10 05:08 | Emergency Department Note ---
History of Present Illness General Chief complaint: Illness Stated complaint: Bedsores, Dementia Time Seen by Provider: 04/10/23 02:00 History of Present Illness This is a 63-year-old male presenting to the emergency department for evaluation of worsening dementia. Patient comes from home where is primary caregiver. The patient has had progressive dementia for a few years, and she is having difficulty caring for him appropriately at home. The patient is minimally adherent to his medication. Sometimes he will go in his daughter's room and take her medication. The patient may have been using marijuana at home. He arrives via EMS, and he does not have any distinct complaints himself. Home Medications Medication Instructions Recorded Confirmed Type aripiprazole 10 mg tablet 10 mg PO DAILY 02/04/23 04/10/23 History donepezil 10 mg tablet 10 mg PO QDB 02/04/23 04/10/23 History mirtazapine 15 mg tablet 15 mg PO HS 02/04/23 04/10/23 History ondansetron HCl 4 mg tablet 4 mg PO Q8 PRN Nausea And Vomiting 02/04/23 04/10/23 History Allergies Allergy/AdvReac Type Severity Reaction Status Date / Time No Known Allergies Allergy NONE Verified 04/10/23 02:41 Past Med/Surg History Medical History Neurocognitive disorder Depression Arthritis Surgical History H/O knee surgery Family History Other Family history non-contributory Social History Smoking Status: Current every day smoker Tobacco Type: Cigarettes Preferred Language: Comoran Communication Ability: Effective 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 Beliefs That Will Affect Care: None marital status: Current Living Situation: Spouse current occupational status: employed Feels Safe at Home: Yes Assistive Devices: Bedside Commode Review of Systems A total of 10 systems reviewed and were otherwise negative Physical Exam Vital Signs Vital Signs - 24 hr 04/10/23 02:00 04/10/23 02:08 04/10/23 02:13 Temperature 37.2 C Temperature Source Oral Pulse Rate 86 84 Pulse Rate [Right Finger] Respiratory Rate 18 Respiratory Effort / Characteristics Non-Labored Spontaneous Respiratory Depth Normal Respiratory Pattern Regular Blood Pressure 151/104 H Blood Pressure [Right Arm] Blood Pressure Mean 119 Blood Pressure Mean [Right Arm] Blood Pressure Position [Right Arm] Pulse Oximetry 98 100 Oxygen Delivery Method Room Air Room Air Sepsis Recent Fever Within 48 Hours No Sepsis New/Unexplained Change in Mental Status No Sepsis Action Taken by Nursing No Action Required 04/10/23 03:18 04/10/23 04:11 Temperature Temperature Source Pulse Rate Pulse Rate [Right Finger] 65 62 Respiratory Rate 15 15 Respiratory Effort / Characteristics Respiratory Depth Respiratory Pattern Blood Pressure Blood Pressure [Right Arm] 91/58 L 91/61 L Blood Pressure Mean Blood Pressure Mean [Right Arm] 69 71 Blood Pressure Position [Right Arm] Lying Pulse Oximetry 98 97 Oxygen Delivery Method Room Air Room Air Sepsis Recent Fever Within 48 Hours Sepsis New/Unexplained Change in Mental Status Sepsis Action Taken by Nursing VITALS: Vitals are noted on the nurse's note and reviewed by myself. Vital signs stable. GENERAL: Well-developed, well-nourished, white male, who is moderately demented but in no acute distress. He is pleasant. HEAD: Normocephalic atraumatic. NECK: Supple without nuchal rigidity. No lymphadenopathy. No thyromegaly. Cervical spine is nontender. HEART: Regular rate and rhythm without murmurs gallops or rubs. LUNGS: Clear to auscultation bilaterally without wheezes, rales or rhonchi. No retractions or accessory muscle use. ABDOMEN: Positive normal bowel sounds x 4. Soft, nontender, without masses or organomegaly. Medical Decision Making Differential Diagnosis Differential diagnosis: Etiologies such as viral syndrome, otitis, pharyngitis, pneumonia, influenza, meningitis, urinary tract infection, septic arthritis, soft tissue infectious process, intra-abdominal process, sepsis, bacteremia, as well as others were entertained. Laboratory Data 04/10/23 02:44 04/10/23 02:44 Lab Results 04/10/23 Range/Units 02:44 WBC 10.19 (4.8-10.8) K/ul RBC 4.63 L (4.70-6.10) M/uL Hgb 13.6 L (14.0-18.0) g/dl Hct 41.8 L (42.0-52.0) % MCV 90.3 (80.0-100.0) fL MCH 29.4 (25.0-34.0) pg MCHC 32.5 (32.0-36.0) g/dL RDW Std Deviation 40.9 (36.4-46.3) fL RDW Coeff of Bhavesh 12.5 (11.5-14.5) % Plt Count 228 (130-400) K/uL MPV 10.4 (9.4-12.4) fL Immature Gran % (Auto) 0.4 % Neut % (Auto) 84.5 % Lymph % (Auto) 10.3 % [place] % (Auto) 4.3 % Eos % (Auto) 0.3 % Baso % (Auto) 0.2 % Neut # (Auto) 8.61 H (1.40-6.50) K/uL Lymph # (Auto) 1.05 L (1.20-3.40) K/uL [place] # (Auto) 0.44 (0.11-0.59) K/uL Eos # (Auto) 0.03 (0.00-0.50) K/uL Baso # (Auto) 0.02 (0.00-0.20) K/uL Immature Gran # (Auto) 0.04 (0.01-0.20) K/uL Sodium 140 (136-145) mmol/L Potassium 3.7 (3.5-5.1) mmol/L Chloride 104 (98-107) mmol/L Carbon Dioxide 29 (21-32) mmol/L Anion Gap 7 (3-11) BUN 13 (6-23) mg/dl Creatinine 0.82 (0.6-1.4) mg/dl Est Cr Clr Drug Dosing 89.8 ml/min Est GFR ( Amer) 107.6 ml/min Est GFR (Non-Af Amer) 92.8 ml/min BUN/Creatinine Ratio 15.9 (10-20) Glucose 187 H (70-99(Fasting)) mg/dl Calcium 9.0 (8.6-10.3) mg/dl Magnesium 1.8 (1.7-2.4) mg/dl Total Bilirubin 0.5 (0.2-1.0) mg/dl AST 13 (13-39) U/L ALT 9 (7-52) U/L Alkaline Phosphatase 44 (34-104) U/L Troponin I High Sens 7.1 (0-20) pg/ml Total Protein 6.7 (6.0-8.3) gm/dl Albumin 4.1 (3.4-5.0) gm/dl Globulin 2.6 (2.5-4.0) gm/dl Albumin/Globulin Ratio 1.6 (0.9-2) MDM Narrative Physical exam and history were performed. Nursing notes, EMR, and Medication List were personally reviewed. No social concerns were identified as barriers to patients care. Patient appears to have history of dementia that seems to be worsening. Family is having difficulty caring for the patient at home. IV access was established and labs were obtained. Patient's blood work is as above and was reviewed. He does not have a significantly elevated white blood cell count, gross anemia, or significant electrolyte imbalance. Glucose is 187. Troponin x1 is normal. Transaminases are not diagnostic. Urine is pending at the time of this dictation. Overall patient does not seem well for discharge. He has dementia and family is having difficulty caring for him at home. The patient likely needs placement services. [facility] the patient here in the ER. Please see their dictation for further patient course, plan, disposition. The chart was completed utilizing [employer] Speech Voice Recognition Software. Grammatical errors, random word insertions, pronoun errors, and incomplete sentences are an occasional consequence of this system due to software limitations, ambient noise, and hardware issues. Any formal questions or concerns about the content, text, or information contained within the body of this dictation should be directly addressed to the provider for clarification. . Impression & Plan Dementia Discharge Plan Visit Data Chief Complaint: Illness Stated Complaint: Bedsores, Dementia ED Provider: Summer Dey ED Midlevel Provider: Tramaine Bocanegra Discharge Problem: Dementia Forms Stand Alone Forms: My [facility] Prescriptions Prescriptions: No Action ondansetron HCl 4 mg tablet 4 mg PO Q8 PRN (Reason: Nausea And Vomiting) donepezil 10 mg tablet 10 mg PO QDB aripiprazole 10 mg tablet 10 mg PO DAILY mirtazapine 15 mg tablet 15 mg PO HS Referrals Referrals: Reid Bolden PA-C [Primary Care Provider] -
--- NOTE | 2023-04-10 06:12 | History & Physical Report ---
Date of Service April 10, 2023 Assessment & Plan (1) Neurocognitive disorder: Plan: 63 year-old male with past medical history significant for dementia, mood disorder, tardive dyskinesia, past tobacco alcohol and substance abuse was brought in because of confusion and not able to care for him at home. Called but not able to reach her. Seems patient is confused at home, trying to take his 's medications and also smoking marijuana Neurocognitive disorder Dementia not able to take care of him at home Needs placement Social service to help with placement One-on-one as needed Continue home medications of donezepil and mirtazapine Labs look okay Follow Social service to help with placement DVT prophylaxis Lovenox Disposition med/telemetry Full code History of Present Illness Chief Complaint: Confusion and request for placement Primary Care Provider: Reid Bolden PA-C 63-year-old male with past medical significant for dementia, mood disorder, tardive dyskinesia, past tobacco alcohol and substance abuse was brought in because of confusion and not able to care for him at home. Called but not able to reach her. Seems patient is confused at home, trying to take his 's medications and also trying to smoke marijuana. Currently patient resting comfortably. Can tell his name and his date of and knows that he is in the hospital. But could not tell current dates. Denies any headache. Denies any cough. Denies nausea. Denies any chest pain or shortness of breath. Denies abdominal pain. States he moving bowels ok. States he is moving his bladder okay. Past med history. As mentioned above Past surgical history. Knee surgery as per records Family history leukemia, diabetes Social history. As per records past tobacco, abuse, past alcohol abuse , past substance abuse. Currently living with his . Allergies Allergy/AdvReac Type Severity Reaction Status Date / Time No Known Allergies Allergy NONE Verified 04/10/23 02:41 Home Medications Medication Instructions Recorded Confirmed Type aripiprazole 10 mg tablet 10 mg PO DAILY 02/04/23 04/10/23 History donepezil 10 mg tablet 10 mg PO QDB 02/04/23 04/10/23 History mirtazapine 15 mg tablet 15 mg PO HS 02/04/23 04/10/23 History ondansetron HCl 4 mg tablet 4 mg PO Q8 PRN Nausea And Vomiting 02/04/23 04/10/23 History Past Med/Surg History Medical History Neurocognitive disorder Depression Arthritis Surgical History H/O knee surgery Family History Other Family history non-contributory Social History Smoking Status: Current every day smoker Tobacco Type: Cigarettes Preferred Language: Chinese Communication Ability: Effective 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 Head- atraumatic Eyes- PERRL. ENT- oropharynx clear Neck- supple, no JVD. Lungs- clear to auscultation, no wheezing or crackles. Heart- regular rhythm; no murmur, no gallop. Abdomen- normal bowel sounds, soft, nontender, no distension. Extremities- no pretibial edema, no erythema seen. Neuro- alert, oriented x 2; PERRL, no facial palsy; no dysarthria; obeys simple commands. Skin- warm & dry Results & Data Results & Data Vital Signs (Past 12 Hours) Vital Signs Temp Pulse Pulse Resp BP BP Pulse Ox 04/10/23 05:38 53 L 14 86/57 L 96 04/10/23 04:11 62 15 91/61 L 97 04/10/23 03:18 65 15 91/58 L 98 04/10/23 02:13 100 04/10/23 02:08 37.2 C 84 18 151/104 H 98 04/10/23 02:00 86 O2 Del Method 04/10/23 05:38 Room Air 04/10/23 04:11 Room Air 04/10/23 03:18 Room Air 04/10/23 02:13 Room Air 04/10/23 02:08 Room Air 04/10/23 02:00 Diagnostic Findings Laboratory Results WBC 10.19 K/ul (4.8-10.8) 04/10/23 02:44 RBC 4.63 M/uL (4.70-6.10) L 04/10/23 02:44 Hgb 13.6 g/dl (14.0-18.0) L 04/10/23 02:44 Hct 41.8 % (42.0-52.0) L 04/10/23 02:44 MCV 90.3 fL (80.0-100.0) 04/10/23 02:44 MCH 29.4 pg (25.0-34.0) 04/10/23 02:44 MCHC 32.5 g/dL (32.0-36.0) 04/10/23 02:44 RDW Std Deviation 40.9 fL (36.4-46.3) 04/10/23 02:44 RDW Coeff of Bhavesh 12.5 % (11.5-14.5) 04/10/23 02:44 Plt Count 228 K/uL (130-400) 04/10/23 02:44 MPV 10.4 fL (9.4-12.4) 04/10/23 02:44 Immature Gran % (Auto) 0.4 % 04/10/23 02:44 Neut % (Auto) 84.5 % 04/10/23 02:44 Lymph % (Auto) 10.3 % 04/10/23 02:44 [place] % (Auto) 4.3 % 04/10/23 02:44 Eos % (Auto) 0.3 % 04/10/23 02:44 Baso % (Auto) 0.2 % 04/10/23 02:44 Neut # (Auto) 8.61 K/uL (1.40-6.50) H 04/10/23 02:44 Lymph # (Auto) 1.05 K/uL (1.20-3.40) L 04/10/23 02:44 [place] # (Auto) 0.44 K/uL (0.11-0.59) 04/10/23 02:44 Eos # (Auto) 0.03 K/uL (0.00-0.50) 04/10/23 02:44 Baso # (Auto) 0.02 K/uL (0.00-0.20) 04/10/23 02:44 Immature Gran # (Auto) 0.04 K/uL (0.01-0.20) 04/10/23 02:44 Sodium 140 mmol/L (136-145) 04/10/23 02:44 Potassium 3.7 mmol/L (3.5-5.1) 04/10/23 02:44 Chloride 104 mmol/L (98-107) 04/10/23 02:44 Carbon Dioxide 29 mmol/L (21-32) 04/10/23 02:44 Anion Gap 7 (3-11) 04/10/23 02:44 BUN 13 mg/dl (6-23) 04/10/23 02:44 Creatinine 0.82 mg/dl (0.6-1.4) 04/10/23 02:44 Est Cr Clr Drug Dosing 89.8 ml/min 04/10/23 02:44 Est GFR ( Amer) 107.6 ml/min 04/10/23 02:44 Est GFR (Non-Af Amer) 92.8 ml/min 04/10/23 02:44 BUN/Creatinine Ratio 15.9 (10-20) 04/10/23 02:44 Glucose 187 mg/dl (70-99(Fasting)) H 04/10/23 02:44 Calcium 9.0 mg/dl (8.6-10.3) 04/10/23 02:44 Magnesium 1.8 mg/dl (1.7-2.4) 04/10/23 02:44 Total Bilirubin 0.5 mg/dl (0.2-1.0) 04/10/23 02:44 AST 13 U/L (13-39) 04/10/23 02:44 ALT 9 U/L (7-52) 04/10/23 02:44 Alkaline Phosphatase 44 U/L (34-104) 04/10/23 02:44 Troponin I High Sens 7.1 pg/ml (0-20) 04/10/23 02:44 Total Protein 6.7 gm/dl (6.0-8.3) 04/10/23 02:44 Albumin 4.1 gm/dl (3.4-5.0) 04/10/23 02:44 Globulin 2.6 gm/dl (2.5-4.0) 04/10/23 02:44 Albumin/Globulin Ratio 1.6 (0.9-2) 04/10/23 02:44 Code Status & VTE Plan VTE Prophylaxis Plan VTE Prophylaxis will be ordered: Yes
[2023-04-10] MEDS ORDERED: NITROGLYCERIN SL 0.4 MG/TAB TAB SL PRN (08:24)
[2023-04-10] MEDS ORDERED: POLYETHYLENE (MIRALAX) 17 GM PACK PO PRN (08:24)
[2023-04-10] MEDS ORDERED: ACETAMINOPHEN 325 MG TAB PO PRN (08:24)
[2023-04-10] MEDS: DONEPEZIL HCL 10 MG TAB PO SCH (10:26)
[2023-04-10] MEDS: SODIUM CHLORIDE 0.9% 1,000 ML IV SCH ×2 (10:26→17:54)
[2023-04-10] MEDS: ENOXAPARIN INJ 40 MG/0.4 ML SYR SQ SCH (10:26)
[2023-04-10] MEDS: ARIPiprazole 10 MG TAB PO SCH (10:26)
--- NOTE | 2023-04-10 11:48 | Electrocardiogram Report ---
Test Reason : Blood Pressure : / mmHG Vent. Rate : 075 BPM Atrial Rate : 075 BPM P-R Int : 136 ms QRS Dur : 104 ms QT Int : 414 ms P-R-T Axes : 046 006 058 degrees QTc Int : 462 ms Normal sinus rhythm Nonspecific ST abnormality When compared with ECG of 04-FEB-2023 21:35, No significant change was found Confirmed by Magnus Tate ([id number]) on 04/10/2023 11:47:40 AM Referred By: REFERRED SELF Confirmed By:Sam Tate
--- NOTE | 2023-04-10 12:22 | Hospitalist Progress Note ---
Date of Service April 10, 2023 Assessment & Plan (1) Neurocognitive disorder: Plan: 63 year-old male with past medical history significant for dementia, mood disorder, tardive dyskinesia, past tobacco alcohol and substance abuse was brought in because of confusion and not able to care for him at home. Called but not able to reach her. Seems patient is confused at home, trying to take his 's medications and also smoking marijuana Neurocognitive disorder Dementia not able to take care of him at home Needs placement Social service to help with placement One-on-one as needed Continue home medications of donezepil and mirtazapine Labs look okay Follow Social service to help with placement 04/10 stable overall denies urinary symptoms DVT prophylaxis Lovenox Disposition med/telemetry Full code Admission and Anticipated Discharge Date Admission Date: April 10, 2023 Subjective Follow-up for dementia with behavioral disturbance, etc. Declining morning medications and breakfast earlier today Seen and watching TV, not in distress Calm and cooperative Cannot state 's name, can state street address no chest pain, dyspnea, palpitations, dizziness No other symptoms Review of Systems Review of Systems: all noted and negative except for above Physical Exam Physical Exam: General- oriented x 1, not in distress, speaks in sentences with no effort or accessory muscle use Eyes- anicteric Neck- no JVD Lungs- clear breath sounds bilaterally Heart- normal rate, regular rhythm; no murmurs Abdomen- normal bowel sounds, nondistended, soft, nontender Extremities- no pretibial edema, no calf tenderness Neuro- alert, oriented x 1; no gross focal neurologic deficits Skin- warm & dry Results & Data Results & Data Vital Signs (Past 12 Hours) Vital Signs Temp Pulse Pulse Resp BP BP Pulse Ox 04/10/23 08:24 04/10/23 08:00 48 L 14 95/62 L 97 04/10/23 07:56 47 L 04/10/23 06:00 53 L 22 112/73 99 04/10/23 05:38 53 L 14 86/57 L 96 04/10/23 04:11 62 15 91/61 L 97 04/10/23 03:18 65 15 91/58 L 98 04/10/23 02:13 100 04/10/23 02:08 37.2 C 84 18 151/104 H 98 04/10/23 02:00 86 Pulse Ox O2 Del Method O2 Del Method 04/10/23 08:24 97 Room Air 04/10/23 08:00 Room Air 04/10/23 07:56 04/10/23 06:00 Room Air 04/10/23 05:38 Room Air 04/10/23 04:11 Room Air 04/10/23 03:18 Room Air 04/10/23 02:13 Room Air 04/10/23 02:08 Room Air 04/10/23 02:00 all noted and reviewed including below
[2023-04-10] MEDS: MIRTAZAPINE TAB 15 MG TAB PO SCH (20:06)
[2023-04-11] MEDS: ARIPiprazole 10 MG TAB PO SCH (08:05)
[2023-04-11] MEDS: ENOXAPARIN INJ 40 MG/0.4 ML SYR SQ SCH (08:05)
[2023-04-11] MEDS: DONEPEZIL HCL 10 MG TAB PO SCH (08:05)
--- NOTE | 2023-04-11 17:15 | Communication Note ---
Date of Service: April 11, 2023 I came to assess pt in response to a consultation request. He was deeply asleep in bed and did not respond to my calling his name loudly, to shaking his shoulder, nor to a brief sternal rub. The psychiatric liaison nurse and I will continue to attempt to assess pt.
--- NOTE | 2023-04-11 18:15 | Hospitalist Progress Note ---
Date of Service April 11, 2023 Assessment & Plan (1) Neurocognitive disorder: Plan: 63 year-old male with past medical history significant for dementia, mood disorder, tardive dyskinesia, past tobacco alcohol and substance abuse was brought in because of confusion and not able to care for him at home. Called but not able to reach her. Seems patient is confused at home, trying to take his 's medications and also smoking marijuana Neurocognitive disorder Dementia not able to take care of him at home Needs placement Social service to help with placement One-on-one as needed Continue home medications of donezepil and mirtazapine Labs look okay Follow Social service to help with placement 04/11 stable overall Discussed with psychiatry service, no further interventions or medication changes at this point Continue to monitor closely Case management on board for patient's placement DVT prophylaxis Lovenox Disposition Pending Full code Admission and Anticipated Discharge Date Admission Date: April 10, 2023 Subjective Follow-up for dementia with behavioral disturbance, etc. Seen resting in bed, sleeping soundly Not in distress, comfortable Patient did not wake up with verbal stimuli Discussed with RN Patient taking medications, appetite is good Not exhibiting aggressive or disruptive behavior today Noted to be incontinent, declined to be changed Review of Systems Review of Systems: all noted and negative except for above Physical Exam Physical Exam: General- sleeping, breathing with no effort or accessory muscle use Eyes- anicteric Neck- no JVD Lungs- clear breath sounds bilaterally, no crackles/wheezing Heart- normal rate, regular rhythm; no murmurs Abdomen- normal bowel sounds, nondistended, soft, nontender Extremities- no pretibial edema, no calf tenderness Neuro- no new gross focal neurologic deficits Skin- warm & dry Results & Data Results & Data Vital Signs (Past 12 Hours) Vital Signs Temp Pulse Resp BP Pulse Ox O2 Del Method 04/11/23 15:23 36.3 C L 55 L 14 97/70 L 96 Room Air 04/11/23 07:55 36.4 C L 45 L 18 116/70 97 Room Air all noted and reviewed including below
[2023-04-11] MEDS: MIRTAZAPINE TAB 15 MG TAB PO SCH (20:08)
[2023-04-12] MEDS: DONEPEZIL HCL 10 MG TAB PO SCH (08:37)
[2023-04-12] MEDS: ENOXAPARIN INJ 40 MG/0.4 ML SYR SQ SCH (08:37)
[2023-04-12] MEDS: ARIPiprazole 10 MG TAB PO SCH (08:37)
--- NOTE | 2023-04-12 12:15 | Hospitalist Progress Note ---
Date of Service April 12, 2023 Assessment & Plan (1) Neurocognitive disorder: Plan: 63 year-old male with past medical history significant for dementia, mood disorder, tardive dyskinesia, past tobacco alcohol and substance abuse was brought in because of confusion and not able to care for him at home. Called but not able to reach her. Seems patient is confused at home, trying to take his 's medications and also smoking marijuana Neurocognitive disorder Dementia not able to take care of him at home Needs placement Social service to help with placement One-on-one as needed Continue home medications of donezepil and mirtazapine Labs look okay Follow UA Social service to help with placement 04/12 stable overall UA pending collection Discussed with psychiatry service, no further interventions or medication changes at this point Continue to monitor closely Case management on board for patient's placement DVT prophylaxis Lovenox Disposition Pending Full code Admission and Anticipated Discharge Date Admission Date: April 10, 2023 Subjective Follow-up for dementia with behavioral disturbance, etc. Seen resting in bed, comfortable, not in distress Sleeping again Tried to wake up patient, but he is not asleep Discussed with RN, patient was awake and alert this morning, had his breakfast, taking his medications No other new issues noted Review of Systems Review of Systems: all noted and negative except for above Physical Exam Physical Exam: General-breathing, no effort or accessory muscle use Eyes- anicteric Neck- no JVD Lungs- clear breath sounds bilaterally, no crackles or wheezes Heart- normal rate, regular rhythm; no murmurs Abdomen- normal bowel sounds, nondistended, soft, nontender Extremities- no pretibial edema, no calf tenderness Neuro- sleeping Skin- warm & dry Results & Data Results & Data Vital Signs (Past 12 Hours) Vital Signs Temp Pulse Resp BP Pulse Ox O2 Del Method 04/12/23 09:00 Room Air 04/12/23 08:32 36.7 C 56 L 16 96/54 L 95 Room Air all noted and reviewed including below
--- NOTE | 2023-04-12 19:21 | Communication Note ---
Date of Service: April 12, 2023 I returned to try to assess pt in response to a consultation request. Today I was able to awaken him. He was able to tell me his name, gave the place as "[facility]" in "[place]" but couldn't tell me the state. Gave the day as "Saturday" but gave the date, month, and year each as "oh-four". He said he was here because of "infection" but couldn't say where, how long he'd had it, or anything about his treatment. Speech was benjamín and monosyllabic. Pt mostly stared stonily at the ceiling, occasionally glancing sideways as if to see if I were st ill there. After a few questions he abruptly told me that my stupid questions were making him irritated and pointedly invited me to get the hell out of his room. Obviously on the basis of this abbreviated assessment I can't make a very useful diagnostic assessment. He does seem to have some difficulty with orientation, especially to time, and confabulated the reason he's here. It's not difficult to envision his becoming irritable at home. However, being irritable with my stupid questions doesn't necessarily tell us much about his behavior at home. His reported home medications of aripiprazole 10 mg daily, donepezil 10 mg daily, and mirtazapine 15 mg QHS seem sensible and I agree with their having been ordered here. I don't have enough information to make useful recommendations beyond that. We will continue to try to arrive at a useful assessment.
[2023-04-12] MEDS: MIRTAZAPINE TAB 15 MG TAB PO SCH (20:16)
[2023-04-13] MEDS: DONEPEZIL HCL 10 MG TAB PO SCH (08:50)
[2023-04-13] MEDS: ARIPiprazole 10 MG TAB PO SCH (08:51)
[2023-04-13] MEDS: ENOXAPARIN INJ 40 MG/0.4 ML SYR SQ SCH (08:51)
[2023-04-13 10:19] LABS: Basophils # (auto) 0.01 K/uL (0.00-0.20); Basophils % (auto) 0.2 %; Eosinophils # (auto) 0.11 K/uL (0.00-0.50); Eosinophils % (auto) 2.1 %; Hematocrit (blood only) 42.2 % (42.0-52.0); Hemoglobin 14.1 g/dl (14.0-18.0); Immature Granulocytes # (auto) 0.02 K/uL (0.01-0.20); Immature Granulocytes % (auto) 0.4 %; Lymphocytes # (auto) 1.92 K/uL (1.20-3.40); Lymphocytes % (auto) 36.2 %; Mean Corpuscular Hemoglobin 29.4 pg (25.0-34.0); Mean Corpuscular Hgb Conc 33.4 g/dL (32.0-36.0); Mean Corpuscular Volume 87.9 fL (80.0-100.0); Mean Platelet Volume 9.9 fL (9.4-12.4); Monocytes # (auto) 0.44 K/uL (0.11-0.59); Monocytes % (auto) 8.3 %; Neutrophils % (auto) 52.8 %; Platelet Count 185 K/uL (130-400); RDW Coefficient of Variation 12.2 % (11.5-14.5); RDW Standard Deviation 39.5 fL (36.4-46.3)
--- NOTE | 2023-04-13 11:21 | Hospitalist Progress Note ---
Date of Service April 13, 2023 Assessment & Plan (1) Neurocognitive disorder: Plan: 63 year-old male with past medical history significant for dementia, mood disorder, tardive dyskinesia, past tobacco alcohol and substance abuse was brought in because of confusion and not able to care for him at home. Reportedly patient is confused at home, trying to take his 's medications and also smoking marijuana Neurocognitive disorder Dementia not able to take care of him at home Needs placement CM to help with placement 1-1 as needed Continue home medications of donezepil and mirtazapine UA not yet collected- pt has been refusing workup/labs at times Continue to monitor Appreciate psych recs Hypotension Pt with increasing episodes of hypotension IVF @80 for 2 bags Continue to monitor Diet: HH, soft bite size DVT prophylaxis: Lovenox Disposition: Pending placement Full code Admission and Anticipated Discharge Date Admission Date: April 10, 2023 Subjective Pt seen in the AM. Was laying in bed eyes closed. Did not respond to verbal stimuli but did respond without opening his eyes to sternal rub. Stated that he was fine, denied acute concerns. Review of Systems Review of Systems: All systems reviewed & are unremarkable except as noted in Subjective Physical Exam Physical Exam: General: Alert.. No acute distress Skin: No noted rashes or bruises Psych: Appropriate mood and affect, was pleasant during my encounter Neuro: No gross deficits HEENT: NC/AT Chest: Nontender to palpation. CV: RRR, Normal s1, s2. No murmurs appreciated Resp: Breath sounds clear bilaterally, no increased effort of breathing. Abdomen: Soft, nontender, nondistended. Extremities: No edema in lower extremities bilaterally. Results & Data Results & Data Vital Signs (Past 12 Hours) Vital Signs Temp Pulse Resp BP Pulse Ox O2 Del Method 04/13/23 08:36 36.5 C 57 L 18 110/69 93 Room Air
[2023-04-13 14:55] LABS: Calcium 8.9 mg/dl (8.6-10.3); Magnesium 1.8 mg/dl (1.7-2.4); Potassium 3.9 mmol/L (3.5-5.1)
[2023-04-13 15:01] LABS: BUN Creatinine Ratio 15.7 (10-20); Creatinine Clr Calc Pharmacy 86.1 ml/min; Est GFR (Non-African American) 92.3 ml/min
[2023-04-13] MEDS: SODIUM CHLORIDE 0.9% 1,000 ML IV SCH (19:56)
[2023-04-13] MEDS: MIRTAZAPINE TAB 15 MG TAB PO SCH (19:56)
[2023-04-14] MEDS: ENOXAPARIN INJ 40 MG/0.4 ML SYR SQ SCH (08:48)
[2023-04-14] MEDS: ARIPiprazole 10 MG TAB PO SCH (08:48)
[2023-04-14] MEDS: DONEPEZIL HCL 10 MG TAB PO SCH (08:48)
[2023-04-14 08:59] LABS: Basophils # (auto) 0.01 K/uL (0.00-0.20); Basophils % (auto) 0.2 %; Eosinophils # (auto) 0.11 K/uL (0.00-0.50); Eosinophils % (auto) 2.2 %; Hematocrit (blood only) 44.2 % (42.0-52.0); Hemoglobin 14.9 g/dl (14.0-18.0); Immature Granulocytes # (auto) 0.02 K/uL (0.01-0.20); Immature Granulocytes % (auto) 0.4 %; Lymphocytes # (auto) 1.87 K/uL (1.20-3.40); Lymphocytes % (auto) 36.8 %; Mean Corpuscular Hemoglobin 29.7 pg (25.0-34.0); Mean Corpuscular Hgb Conc 33.7 g/dL (32.0-36.0); Mean Platelet Volume 10.5 fL (9.4-12.4); Monocytes # (auto) 0.33 K/uL (0.11-0.59); Monocytes % (auto) 6.5 %; Neutrophils # (auto) 2.74 K/uL (1.40-6.50); Neutrophils % (auto) 53.9 %; Platelet Count 203 K/uL (130-400); RDW Coefficient of Variation 12.5 % (11.5-14.5); RDW Standard Deviation 40.3 fL (36.4-46.3); Red Blood Count 5.02 M/uL (4.70-6.10); White Blood Count 5.08 K/ul (4.8-10.8)
[2023-04-14 09:17] LABS: Alanine Aminotransferase 9 U/L (7-52); Albumin Globulin Ratio 1.4 (0.9-2); Albumin Level 3.6 gm/dl (3.4-5.0); Alkaline Phosphatase 34 U/L (34-104); BUN Creatinine Ratio 9.4 (10-20); Bilirubin,Total 0.5 mg/dl (0.2-1.0); Blood Urea Nitrogen 9 mg/dl (6-23); Calcium 8.7 mg/dl (8.6-10.3); Carbon Dioxide 32 mmol/L (21-32); Chloride 105 mmol/L (98-107); Creatinine Clr Calc Pharmacy 74.2 ml/min; Est GFR (African American) 95.8 ml/min; Est GFR (Non-African American) 82.6 ml/min; Globulin 2.6 gm/dl (2.5-4.0); Glucose 85 mg/dl (70-99(Fasting)); Phosphorus 3.1 mg/dl (2.5-4.9); Total Protein 6.2 gm/dl (6.0-8.3)
[2023-04-14] MEDS: SODIUM CHLORIDE 0.9% 1,000 ML IV SCH (10:22)
[2023-04-14 10:26] LABS: Magnesium 1.7 mg/dl (1.7-2.4); Potassium 3.9 mmol/L (3.5-5.1)
--- NOTE | 2023-04-14 12:39 | Hospitalist Progress Note ---
Date of Service April 14, 2023 Assessment & Plan (1) Neurocognitive disorder: Plan: 63 year-old male with past medical history significant for dementia, mood disorder, tardive dyskinesia, past tobacco alcohol and substance abuse was brought in because of confusion and not able to care for him at home. Reportedly patient is confused at home, trying to take his 's medications and also smoking marijuana Neurocognitive disorder Dementia not able to take care of him at home Needs placement CM to help with placement 1-1 as needed Continue home medications of donezepil and mirtazapine UA not yet collected- pt has been refusing workup/labs at times Continue to monitor Appreciate psych recs Hypotension Pt with increasing episodes of hypotension Given IVF @80 for 2 bags- hypotension currently resolved Continue to monitor Diet: HH, soft bite size DVT prophylaxis: Lovenox Disposition: Pending placement Full code Admission and Anticipated Discharge Date Admission Date: April 10, 2023 Subjective Pt seen in the AM. Was laying in bed eyes closed. Not responding today to any stimuli. Review of Systems Review of Systems: Unobtainable due to mental health condition Physical Exam Physical Exam: General: No acute distress Skin: No noted rashes or bruises Psych: not responding verbally Neuro: not responding verbally HEENT: NC/AT Chest: Nontender to palpation. CV: RRR, Normal s1, s2. No murmurs appreciated Resp: Breath sounds clear bilaterally, no increased effort of breathing. Abdomen: Soft Extremities: No edema in lower extremities bilaterally. Results & Data Results & Data Vital Signs (Past 12 Hours) Vital Signs Temp Pulse Resp BP Pulse Ox O2 Del Method 04/14/23 08:08 36.3 C L 57 L 18 99/61 L 100 Room Air 04/14/23 07:25 Room Air
[2023-04-14] MEDS: MIRTAZAPINE TAB 15 MG TAB PO SCH (19:50)
[2023-04-15] MEDS: DONEPEZIL HCL 10 MG TAB PO SCH (08:09)
[2023-04-15] MEDS: ARIPiprazole 10 MG TAB PO SCH (08:09)
[2023-04-15] MEDS: ENOXAPARIN INJ 40 MG/0.4 ML SYR SQ SCH (08:09)
[2023-04-15 11:39] LABS: Basophils # (auto) 0.02 K/uL (0.00-0.20); Basophils % (auto) 0.3 %; Eosinophils % (auto) 1.6 %; Hematocrit (blood only) 43.3 % (42.0-52.0); Hemoglobin 14.2 g/dl (14.0-18.0); Immature Granulocytes # (auto) 0.02 K/uL (0.01-0.20); Immature Granulocytes % (auto) 0.3 %; Lymphocytes # (auto) 1.56 K/uL (1.20-3.40); Lymphocytes % (auto) 25.2 %; Mean Corpuscular Hemoglobin 29.1 pg (25.0-34.0); Mean Corpuscular Hgb Conc 32.8 g/dL (32.0-36.0); Mean Corpuscular Volume 88.7 fL (80.0-100.0); Mean Platelet Volume 9.8 fL (9.4-12.4); Monocytes # (auto) 0.38 K/uL (0.11-0.59); Monocytes % (auto) 6.1 %; Neutrophils # (auto) 4.11 K/uL (1.40-6.50); Neutrophils % (auto) 66.5 %; Platelet Count 211 K/uL (130-400); RDW Coefficient of Variation 12.4 % (11.5-14.5); RDW Standard Deviation 40.7 fL (36.4-46.3); Red Blood Count 4.88 M/uL (4.70-6.10); White Blood Count 6.19 K/ul (4.8-10.8)
[2023-04-15 12:01] LABS: Albumin Globulin Ratio 1.3 (0.9-2); Albumin Level 3.9 gm/dl (3.4-5.0); BUN Creatinine Ratio 8.2 (10-20); Bilirubin,Total 0.4 mg/dl (0.2-1.0); Calcium 9.1 mg/dl (8.6-10.3); Creatinine Clr Calc Pharmacy 83.8 ml/min; Est GFR (Non-African American) 91.4 ml/min; Globulin 2.9 gm/dl (2.5-4.0); Magnesium 1.8 mg/dl (1.7-2.4); Phosphorus 2.5 mg/dl (2.5-4.9); Potassium 3.9 mmol/L (3.5-5.1); Total Protein 6.8 gm/dl (6.0-8.3)
--- NOTE | 2023-04-15 13:55 | Hospitalist Progress Note ---
Date of Service April 15, 2023 Assessment & Plan (1) Neurocognitive disorder: Plan: 63 year-old male with past medical history significant for dementia, mood disorder, tardive dyskinesia, past tobacco alcohol and substance abuse was brought in because of confusion and not able to care for him at home. Reportedly patient is confused at home, trying to take his 's medications and also smoking marijuana Neurocognitive disorder Dementia not able to take care of him at home Needs placement CM to help with placement 1-1 as needed Continue home medications of donezepil and mirtazapine UA not yet collected- pt has been refusing workup/labs at times Continue to monitor Appreciate psych recs Hypotension Pt with increasing episodes of hypotension Given IVF @80 for 2 bags- hypotension currently resolved Continue to monitor- consider midodrine if persistent Diet: HH, soft bite size DVT prophylaxis: Lovenox Disposition: Pending placement Full code Admission and Anticipated Discharge Date Admission Date: April 10, 2023 Subjective Pt seen in the AM. Was sitting in the chair at bedside, more awake today. Denied acute concerns. Review of Systems Review of Systems: All systems reviewed & are unremarkable except as noted in Subjective Physical Exam Physical Exam: General: No acute distress Skin: No noted rashes or bruises Psych: not responding verbally Neuro: not responding verbally HEENT: NC/AT Chest: Nontender to palpation. CV: RRR, Normal s1, s2. No murmurs appreciated Resp: Breath sounds clear bilaterally, no increased effort of breathing. Abdomen: Soft Extremities: No edema in lower extremities bilaterally. Results & Data Results & Data Vital Signs (Past 12 Hours) Vital Signs Temp Pulse Resp BP Pulse Ox O2 Del Method 04/15/23 08:37 36.3 C L 55 L 18 91/67 L 94 Room Air
[2023-04-15] MEDS: MIRTAZAPINE TAB 15 MG TAB PO SCH (20:01)
[2023-04-16] MEDS: ARIPiprazole 10 MG TAB PO SCH (08:29)
[2023-04-16] MEDS: DONEPEZIL HCL 10 MG TAB PO SCH (08:30)
[2023-04-16] MEDS: ENOXAPARIN INJ 40 MG/0.4 ML SYR SQ SCH (08:30)
--- NOTE | 2023-04-16 13:24 | Hospitalist Progress Note ---
Date of Service April 16, 2023 Assessment & Plan (1) Neurocognitive disorder: Plan: 63 year-old male with past medical history significant for dementia, mood disorder, tardive dyskinesia, past tobacco alcohol and substance abuse was brought in because of confusion and not able to care for him at home. Reportedly patient is confused at home, trying to take his 's medications and also smoking marijuana Neurocognitive disorder Dementia not able to take care of him at home Needs placement CM to help with placement 1-1 as needed Continue home medications of donezepil and mirtazapine UA not yet collected- pt has been refusing workup/labs at times Continue to monitor Appreciate psych recs Hypotension Pt with occasional episodes of hypotension Receiving IVF occasionally Continue to monitor- consider midodrine if persistent Diet: HH, soft bite size DVT prophylaxis: Lovenox Disposition: Pending placement Full code Admission and Anticipated Discharge Date Admission Date: April 10, 2023 Subjective Pt seen in the AM. Was sitting in bed, once more unresponsive Denied acute concerns. Review of Systems Review of Systems: All systems reviewed & are unremarkable except as noted in Subjective Physical Exam Physical Exam: General: No acute distress Skin: No noted rashes or bruises Psych: not responding verbally Neuro: not responding verbally HEENT: NC/AT Chest: Nontender to palpation. CV: RRR, Normal s1, s2. No murmurs appreciated Resp: Breath sounds clear bilaterally, no increased effort of breathing. Abdomen: Soft Extremities: No edema in lower extremities bilaterally. Results & Data Results & Data Vital Signs (Past 12 Hours) Vital Signs Temp Pulse Resp BP Pulse Ox O2 Del Method 04/16/23 08:13 36.8 C 58 L 16 104/68 97 Room Air
--- NOTE | 2023-04-16 16:12 | Psychiatric Consultation ---
Date of Consultation April 16, 2023 Impression / Recommendations Impression 63 yo male with hx of depression with psychotic features and/or catatonia, hx of polysubstance abuse, dx with progress major cognitive decline since last contact with service in 2019. labs/work-up as above, no indication of acute stroke but ongoing behavioral change at home though reported MJ use and/or surreptitious use of meds and/or compliance issues likely multifactorial with dementia with substance induced encephalopathy but can't exclude worsening depression/catatonia. (1) Acute UTI: (2) Delirium: (3) Neurocognitive disorder: Plan need records/collateral from not a behavioral management issue on med floor and taking meds as prescribed with ice cream, etc. if regresses consider rechallenge with Ativan no clear indication for EEG acutely CPT Code Overall, I spent a total of 60 minutes with this case, including review of chart, review of records, direct evaluation of the patient, coordination with nursing and hospitalist service, and documentation. Psych History Identifying Data 63 yo male was residing with in [place], admit to hospitalist service on 04/10/23, attempted to be seen by Dr. Galloway on 2 occasions but not particularly responsive. Chief Complaint per Dr. Moore, "has a known psych history, not responsive most days" History of Present Illness Patient is unable to provide hx but is more alert today per nursing and sitting in bedside at chair. He struggles to communicate but agreed with her has incontinence at baseline. No contact with /liaison to this point. So history is largely per review of chart, currently taking Abilify 10 mg daily, donepezil, and mirtazapine 15 mg hs. Patient was increasingly confused and reportedly combative at home but has been largely resting in the hospital. There is documentation on the chart that he may have been trying to take 's medications and/or using MJ again. Per chart he was first hospitalized psychiatrically for depression at [facility] in Jun 2017 which was soon after his father's suicide by a self-inflicted gunshot wound. He reportedly overdosed in 2019 (limited details, unclear if intentional or related to substance abuse). Admit to [facility] 10/2019 with suspiciousness with depression with possible catatonic features. His dx included MDD, Opioid and EToh use disorder. Past med trials Zyprexa zydis, Aripiprazole, hydroxyzine, duloxetine, lamictal, etc. Was reportedly following with [facility] but recent scripts in sure scripts appear to be per primary care. was taking Invega sustenna in june 2022 per surescripts. Allergies Allergy/AdvReac Type Severity Reaction Status Date / Time No Known Allergies Allergy NONE Verified 04/10/23 02:41 Home Medications Medication Instructions Recorded Confirmed Type aripiprazole 10 mg tablet 10 mg PO DAILY 02/04/23 04/10/23 History donepezil 10 mg tablet 10 mg PO QDB 02/04/23 04/10/23 History mirtazapine 15 mg tablet 15 mg PO HS 02/04/23 04/10/23 History ondansetron HCl 4 mg tablet 4 mg PO Q8 PRN Nausea And Vomiting 02/04/23 04/10/23 History Patient History Medical History Neurocognitive disorder Depression Arthritis Surgical History H/O knee surgery Family History Other Family history non-contributory Social History Smoking Status: Current every day smoker Tobacco Type: Cigarettes Preferred Language: Moldovan Communication Ability: Effective House Cleaner Required: No Beliefs That Will Affect Care: None marital status: Current Living Situation: Spouse current occupational status: employed Feels Safe at Home: Yes Assistive Devices: None Physical Exam Psychiatric: patient is alert, flat affect, thoughts very concrete, unclear if understands questions, no abnormal motor movements but significant delay in response. Vital Signs (Past 24 Hours): Last Vital Signs Temp 36.6 C 04/16/23 15:57 Pulse 55 L 04/16/23 15:57 Resp 16 04/16/23 15:57 BP 98/65 L 04/16/23 15:57 Pulse Ox 95 04/16/23 15:57 O2 Del Method Room Air 04/16/23 15:57 Review of Systems Unobtainable due to cognitive status Results & Data (PSY) Laboratory Results none in past 24 hrs, has a recent B12, I don't see folate, last TSH approximately 3 months, last head CT 01/2023. Medications Administered Aripiprazole (Aripiprazole 10 Mg Tab) 10 mg PO DAILY MICHEL Stop: 05/10/23 08:59 Last Admin: 04/16/23 08:29 Dose: 10 mg Documented By: Admin: 04/15/23 08:09 Dose: 10 mg Documented By: Admin: 04/14/23 08:48 Dose: 10 mg Documented By: Admin: 04/13/23 08:51 Dose: 10 mg Documented By: Admin: 04/12/23 08:37 Dose: 10 mg Documented By: Admin: 04/11/23 08:05 Dose: 10 mg Documented By: [facility] Admin: 04/10/23 10:26 Dose: Not Given Documented By: Donepezil HCl (Donepezil Hcl 10 Mg Tab) 10 mg PO QDB MICHEL Stop: 05/10/23 08:23 Last Admin: 04/16/23 08:30 Dose: 10 mg Documented By: Admin: 04/15/23 08:09 Dose: 10 mg Documented By: Admin: 04/14/23 08:48 Dose: 10 mg Documented By: Admin: 04/13/23 08:50 Dose: 10 mg Documented By: Admin: 04/12/23 08:37 Dose: 10 mg Documented By: [facility] Admin: 04/11/23 08:05 Dose: 10 mg Documented By: [facility] Admin: 04/10/23 10:26 Dose: Not Given Documented By: Enoxaparin Sodium (Enoxaparin Inj 40 Mg/0.4 Ml Syr) 40 mg SQ Q24H MICHEL Stop: 05/10/23 08:23 Last Admin: 04/16/23 08:30 Dose: 40 mg Documented By: Admin: 04/15/23 08:09 Dose: Not Given Documented By: Admin: 04/14/23 08:48 Dose: Not Given Documented By: Admin: 04/13/23 08:51 Dose: Not Given Documented By: Admin: 04/12/23 08:37 Dose: 40 mg Documented By: Admin: 04/11/23 08:05 Dose: 40 mg Documented By: [facility] Admin: 04/10/23 10:26 Dose: Not Given Documented By: Mirtazapine (Mirtazapine Tab 15 Mg Tab) 15 mg PO HS MICHEL Stop: 05/10/23 20:59 Last Admin: 04/15/23 20:01 Dose: 15 mg Documented By: Admin: 04/14/23 19:50 Dose: 15 mg Documented By: Admin: 04/13/23 19:56 Dose: 15 mg Documented By: Admin: 04/12/23 20:16 Dose: 15 mg Documented By: Admin: 04/11/23 20:08 Dose: 15 mg Documented By: Admin: 04/10/23 20:06 Dose: 15 mg Documented By: PATY Polyethylene Glycol (Polyethylene (Miralax) 17 Gm Pack) 17 gm PO DAILY PRN PRN Reason: Constipation Stop: 05/10/23 08:23 Last Admin: 04/13/23 19:56 Dose: 17 gm Documented By: ION Coding Level of Care Code 19625 U Intl Hosp Care Lvl 2 Diagnoses Acute UTI N39.0 Delirium R41.0 Neurocognitive disorder R41.9
[2023-04-16] MEDS: MIRTAZAPINE TAB 15 MG TAB PO SCH (21:33)
[2023-04-17] MEDS: ENOXAPARIN INJ 40 MG/0.4 ML SYR SQ SCH (07:49)
[2023-04-17] MEDS: DONEPEZIL HCL 10 MG TAB PO SCH (07:49)
[2023-04-17] MEDS: ARIPiprazole 10 MG TAB PO SCH (07:49)
[2023-04-17 13:12] LABS: Basophils # (auto) 0.01 K/uL (0.00-0.20); Basophils % (auto) 0.2 %; Eosinophils # (auto) 0.06 K/uL (0.00-0.50); Eosinophils % (auto) 1.2 %; Hematocrit (blood only) 40.7 % (42.0-52.0); Hemoglobin 13.5 g/dl (14.0-18.0); Immature Granulocytes # (auto) 0.01 K/uL (0.01-0.20); Immature Granulocytes % (auto) 0.2 %; Lymphocytes # (auto) 1.58 K/uL (1.20-3.40); Lymphocytes % (auto) 32.5 %; Mean Corpuscular Hemoglobin 29.4 pg (25.0-34.0); Mean Corpuscular Hgb Conc 33.2 g/dL (32.0-36.0); Mean Corpuscular Volume 88.7 fL (80.0-100.0); Mean Platelet Volume 9.6 fL (9.4-12.4); Monocytes # (auto) 0.29 K/uL (0.11-0.59); Neutrophils # (auto) 2.91 K/uL (1.40-6.50); Neutrophils % (auto) 59.9 %; Platelet Count 168 K/uL (130-400); RDW Coefficient of Variation 12.4 % (11.5-14.5); RDW Standard Deviation 40.2 fL (36.4-46.3); Red Blood Count 4.59 M/uL (4.70-6.10); White Blood Count 4.86 K/ul (4.8-10.8)
[2023-04-17 14:32] LABS: Albumin Globulin Ratio 1.5 (0.9-2); Albumin Level 3.7 gm/dl (3.4-5.0); Bilirubin,Total 0.5 mg/dl (0.2-1.0); Calcium 8.9 mg/dl (8.6-10.3); Creatinine Clr Calc Pharmacy 77.4 ml/min; Est GFR (African American) 100.8 ml/min; Globulin 2.5 gm/dl (2.5-4.0); Magnesium 1.8 mg/dl (1.7-2.4); Potassium 4.2 mmol/L (3.5-5.1); Total Protein 6.2 gm/dl (6.0-8.3)
--- NOTE | 2023-04-17 15:44 | Hospitalist Progress Note ---
Date of Service April 17, 2023 Assessment & Plan (1) Neurocognitive disorder: Plan: 63 year-old male with past medical history significant for dementia, mood disorder, tardive dyskinesia, past tobacco alcohol and substance abuse was brought in because of confusion and not able to care for him at home. Reportedly patient is confused at home, trying to take his 's medications and also smoking marijuana Neurocognitive disorder Dementia not able to take care of him at home Needs placement CM to help with placement 1-1 as needed-has been under close observation now Continue home medications of donezepil and mirtazapine UA not yet collected- pt has been refusing workup/labs at times Continue to monitor Appreciate psych recs--- if behavioral issue Ativan can be used Remains hemodynamically stable with blood pressure on the lower side no apparent distress at rest Hypotension Pt with occasional episodes of hypotension Receiving IVF occasionally Continue to monitor- consider midodrine if persistent Diet: HH, soft bite size DVT prophylaxis: Lovenox Disposition: Pending placement Full code Admission and Anticipated Discharge Date Admission Date: April 10, 2023 Subjective 04/17/2023 The patient was seen and examined in medical floor She remains stable and did not want to talk to me Review of Systems Review of Systems: Unobtainable due to cognitive status Physical Exam Physical Exam: Lying in bed comfortably Constitutional: well developed, well nourished and average body habitus; not ill appearing Eyes: PERRL, conjunctivae normal, anicteric sclerae ENMT: external ear and nose normal, oropharynx normal Neck: trachea midline, no thyromegaly Respiratory: no respiratory distress Auscultation: lungs clear to auscultation bilaterally and + diminished lung sounds Cardiovascular: Rate/Rhythm: regular rate, regular rhythm and + bradycardic Heart Sounds: normal S1 and normal S2; no murmur Extremities: no edema Gastrointestinal (Abdomen): Inspection/Auscultation: normal bowel sounds; abdomen not distended Percussion/Palpation: abdomen soft; abdomen nontender Musculoskeletal: No acute arthritis involving any joint Neurologic: Alert and awake. Not communicating right now Results & Data Results & Data Vital Signs (Past 12 Hours) Vital Signs Temp Pulse Resp BP Pulse Ox O2 Del Method 04/17/23 07:46 36.5 C 55 L 16 90/63 L 95 Room Air Laboratory Results Short CBC 04/17/23 Range/Units 12:53 WBC 4.86 (4.8-10.8) K/ul Hgb 13.5 L (14.0-18.0) g/dl Hct 40.7 L (42.0-52.0) % Plt Count 168 (130-400) K/uL BMP 04/17/23 12:53 Sodium 138 Potassium 4.2 Chloride 104 Carbon Dioxide 27 BUN 12 Creatinine 0.92 Glucose 117 H Calcium 8.9 Liver Function 04/17/23 Range/Units 12:53 Total Bilirubin 0.5 (0.2-1.0) mg/dl AST 17 (13-39) U/L ALT 13 (7-52) U/L Alkaline Phosphatase 37 (34-104) U/L Albumin 3.7 (3.4-5.0) gm/dl Medications Administered Current Inpatient Medications Acetaminophen (Acetaminophen 325 Mg Tab) 650 mg PO Q4H PRN PRN Reason: Pain or Fever Stop: 05/10/23 08:23 Aripiprazole (Aripiprazole 10 Mg Tab) 10 mg PO DAILY MICHEL Stop: 05/10/23 08:59 Last Admin: 04/17/23 07:49 Dose: 10 mg Donepezil HCl (Donepezil Hcl 10 Mg Tab) 10 mg PO QDB MICHEL Stop: 05/10/23 08:23 Last Admin: 04/17/23 07:49 Dose: 10 mg Enoxaparin Sodium (Enoxaparin Inj 40 Mg/0.4 Ml Syr) 40 mg SQ Q24H MICHEL Stop: 05/10/23 08:23 Last Admin: 04/17/23 07:49 Dose: 40 mg Mirtazapine (Mirtazapine Tab 15 Mg Tab) 15 mg PO HS MICHEL Stop: 05/10/23 20:59 Last Admin: 04/16/23 21:33 Dose: 15 mg Nitroglycerin (Nitroglycerin Sl 0.4 Mg/Tab Tab) 0.4 mg SL Q5M PRN PRN Reason: Chest Pain Stop: 05/10/23 08:23 Polyethylene Glycol (Polyethylene (Miralax) 17 Gm Pack) 17 gm PO DAILY PRN PRN Reason: Constipation Stop: 05/10/23 08:23 Last Admin: 04/13/23 19:56 Dose: 17 gm
[2023-04-17] MEDS: MIRTAZAPINE TAB 15 MG TAB PO SCH (20:49)
[2023-04-18] MEDS: DONEPEZIL HCL 10 MG TAB PO SCH (08:41)
[2023-04-18] MEDS: ENOXAPARIN INJ 40 MG/0.4 ML SYR SQ SCH (08:41)
[2023-04-18] MEDS: ARIPiprazole 10 MG TAB PO SCH (08:41)
--- NOTE | 2023-04-18 16:00 | Hospitalist Progress Note ---
Date of Service April 18, 2023 Assessment & Plan (1) Neurocognitive disorder: Plan: 63 year-old male with past medical history significant for dementia, mood disorder, tardive dyskinesia, past tobacco alcohol and substance abuse was brought in because of confusion and not able to care for him at home. Reportedly patient is confused at home, trying to take his 's medications and also smoking marijuana Neurocognitive disorder Dementia not able to take care of him at home Needs placement CM to help with placement 1-1 as needed-has been under close observation now Continue home medications of donezepil and mirtazapine UA not yet collected- pt has been refusing workup/labs at times Continue to monitor Appreciate psych recs--- if behavioral issue Ativan can be used Remains hemodynamically stable with blood pressure on the lower side no apparent distress at rest Has been conversing normally without any acute distress Will be transferred when he is accepted to facility Hypotension Pt with occasional episodes of hypotension Receiving IVF occasionally Continue to monitor- consider midodrine if persistent Diet: HH, soft bite size DVT prophylaxis: Lovenox Disposition: Pending placement Full code Admission and Anticipated Discharge Date Admission Date: April 10, 2023 Subjective 04/17/2023 The patient was seen and examined in medical floor She remains stable and did not want to talk to me 04/18/2023 The patient was seen and examined in medical floor He has been conversing normally and denies any symptoms Has been waiting to be placed Review of Systems Review of Systems: all noted and negative except for above Physical Exam Physical Exam: Lying in bed comfortably Constitutional: well developed, well nourished and average body habitus; not ill appearing Eyes: PERRL, conjunctivae normal, anicteric sclerae ENMT: external ear and nose normal, oropharynx normal Neck: trachea midline, no thyromegaly Respiratory: no respiratory distress Auscultation: lungs clear to auscultation bilaterally and + diminished lung sounds Cardiovascular: Rate/Rhythm: regular rate, regular rhythm and + bradycardic Heart Sounds: normal S1 and normal S2; no murmur Extremities: no edema Gastrointestinal (Abdomen): Inspection/Auscultation: normal bowel sounds; abdomen not distended Percussion/Palpation: abdomen soft; abdomen nontender Musculoskeletal: No acute arthritis involving any of the joint Neurologic: Alert and awake . Pleasantly confused Lymphatic: no cervical or axillary lymphadenopathy Results & Data Results & Data Vital Signs (Past 12 Hours) Vital Signs Temp Pulse Resp BP Pulse Ox O2 Del Method 04/18/23 15:28 36.3 C L 64 16 116/71 93 Room Air 04/18/23 07:16 36.5 C 55 L 16 95/62 L 96 Room Air Medications Administered Current Inpatient Medications Acetaminophen (Acetaminophen 325 Mg Tab) 650 mg PO Q4H PRN PRN Reason: Pain or Fever Stop: 05/10/23 08:23 Aripiprazole (Aripiprazole 10 Mg Tab) 10 mg PO DAILY MICHEL Stop: 05/10/23 08:59 Last Admin: 04/18/23 08:41 Dose: 10 mg Donepezil HCl (Donepezil Hcl 10 Mg Tab) 10 mg PO QDB MICHEL Stop: 05/10/23 08:23 Last Admin: 04/18/23 08:41 Dose: 10 mg Enoxaparin Sodium (Enoxaparin Inj 40 Mg/0.4 Ml Syr) 40 mg SQ Q24H MICHEL Stop: 05/10/23 08:23 Last Admin: 04/18/23 08:41 Dose: 40 mg Mirtazapine (Mirtazapine Tab 15 Mg Tab) 15 mg PO HS MICHEL Stop: 05/10/23 20:59 Last Admin: 04/17/23 20:49 Dose: 15 mg Nitroglycerin (Nitroglycerin Sl 0.4 Mg/Tab Tab) 0.4 mg SL Q5M PRN PRN Reason: Chest Pain Stop: 05/10/23 08:23 Polyethylene Glycol (Polyethylene (Miralax) 17 Gm Pack) 17 gm PO DAILY PRN PRN Reason: Constipation Stop: 05/10/23 08:23 Last Admin: 04/13/23 19:56 Dose: 17 gm
[2023-04-18] MEDS: MIRTAZAPINE TAB 15 MG TAB PO SCH (20:21)
[2023-04-19] MEDS: DONEPEZIL HCL 10 MG TAB PO SCH (07:50)
[2023-04-19] MEDS: ENOXAPARIN INJ 40 MG/0.4 ML SYR SQ SCH (07:50)
[2023-04-19] MEDS: ARIPiprazole 10 MG TAB PO SCH (07:50)
--- NOTE | 2023-04-19 17:26 | Hospitalist Progress Note ---
Date of Service April 19, 2023 Assessment & Plan (1) Neurocognitive disorder: Plan: 63 year-old male with past medical history significant for dementia, mood disorder, tardive dyskinesia, past tobacco alcohol and substance abuse was brought in because of confusion and not able to care for him at home. Reportedly patient is confused at home, trying to take his 's medications and also smoking marijuana Neurocognitive disorder Dementia not able to take care of him at home Needs placement CM to help with placement 1-1 as needed-has been under close observation now Continue home medications of donezepil and mirtazapine UA not yet collected- pt has been refusing workup/labs at times Continue to monitor Appreciate psych recs--- if behavioral issue Ativan can be used Remains hemodynamically stable with blood pressure on the lower side no apparent distress at rest Has been conversing normally without any acute distress Will be transferred when he is accepted to facility Remains medically stable Hypotension Pt with occasional episodes of hypotension Receiving IVF occasionally Continue to monitor- consider midodrine if persistent Advised to drink more fluid Diet: HH, soft bite size DVT prophylaxis: Lovenox Disposition: Pending placement Full code Admission and Anticipated Discharge Date Admission Date: April 10, 2023 Subjective 04/17/2023 The patient was seen and examined in medical floor She remains stable and did not want to talk to me 04/18/2023 The patient was seen and examined in medical floor He has been conversing normally and denies any symptoms Has been waiting to be placed 04/19/2023 The patient was seen and examined in medical floor He has been stable without any significant symptoms Awaiting placement Review of Systems Review of Systems: all noted and negative except for above Physical Exam Physical Exam: Lying in bed comfortably Constitutional: well developed, well nourished and average body habitus; not ill appearing Eyes: PERRL, conjunctivae normal, anicteric sclerae ENMT: external ear and nose normal, oropharynx normal Neck: trachea midline, no thyromegaly Respiratory: no respiratory distress Auscultation: lungs clear to ausculta tion bilaterally and + diminished lung sounds Cardiovascular: Rate/Rhythm: regular rate, regular rhythm and + bradycardic Heart Sounds: normal S1 and normal S2; no murmur Extremities: no edema Gastrointestinal (Abdomen): Inspection/Auscultation: normal bowel sounds; abdomen not distended Percussion/Palpation: abdomen soft; abdomen nontender Lymphatic: no cervical or axillary lymphadenopathy Results & Data Results & Data Vital Signs (Past 12 Hours) Vital Signs Temp Pulse Resp BP Pulse Ox O2 Del Method 04/19/23 13:52 36.7 C 54 L 16 107/69 97 Room Air 04/19/23 07:20 36.8 C 55 L 17 92/65 L 94 Room Air Medications Administered Current Inpatient Medications Acetaminophen (Acetaminophen 325 Mg Tab) 650 mg PO Q4H PRN PRN Reason: Pain or Fever Stop: 05/10/23 08:23 Aripiprazole (Aripiprazole 10 Mg Tab) 10 mg PO DAILY MICHEL Stop: 05/10/23 08:59 Last Admin: 04/19/23 07:50 Dose: 10 mg Donepezil HCl (Donepezil Hcl 10 Mg Tab) 10 mg PO QDB MICHEL Stop: 05/10/23 08:23 Last Admin: 04/19/23 07:50 Dose: 10 mg Enoxaparin Sodium (Enoxaparin Inj 40 Mg/0.4 Ml Syr) 40 mg SQ Q24H MICHEL Stop: 05/10/23 08:23 Last Admin: 04/19/23 07:50 Dose: 40 mg Mirtazapine (Mirtazapine Tab 15 Mg Tab) 15 mg PO HS MICHEL Stop: 05/10/23 20:59 Last Admin: 04/18/23 20:21 Dose: 15 mg Nitroglycerin (Nitroglycerin Sl 0.4 Mg/Tab Tab) 0.4 mg SL Q5M PRN PRN Reason: Chest Pain Stop: 05/10/23 08:23 Polyethylene Glycol (Polyethylene (Miralax) 17 Gm Pack) 17 gm PO DAILY PRN PRN Reason: Constipation Stop: 05/10/23 08:23 Last Admin: 04/13/23 19:56 Dose: 17 gm
[2023-04-19] MEDS: MIRTAZAPINE TAB 15 MG TAB PO SCH (21:33)
[2023-04-20 06:16] LABS: Appearance Urine Clear (Clear); Bacteria Urine Automated 4+ (Negative); Bilirubin Urine Negative (Negative); Blood Urine Negative (Negative); Cast Urine Automated 0 /lpf (0-5); Color Urine Yellow; Epithelial Cell Urine Auto 0-5 /lpf (0-5); Glucose Urine UA Negative (Negative); Ketones Urine Negative (Negative); Leukocyte Esterase Urine 2+ (Negative); Nitrite Urine Negative (Negative); Protein Urine Negative (Negative); RBC Urine Automated 0-4 /hpf (0-4); Specific Gravity Urine 1.006 (1.000-1.030); Urobilinogen Urine Negative (Negative)
[2023-04-20] MEDS: DONEPEZIL HCL 10 MG TAB PO SCH (10:26)
[2023-04-20] MEDS: ARIPiprazole 10 MG TAB PO SCH (10:26)
[2023-04-20] MEDS: ENOXAPARIN INJ 40 MG/0.4 ML SYR SQ SCH (10:26)
--- NOTE | 2023-04-20 14:07 | Hospitalist Progress Note ---
Date of Service April 20, 2023 Assessment & Plan (1) Neurocognitive disorder: Plan: 63 year-old male with past medical history significant for dementia, mood disorder, tardive dyskinesia, past tobacco alcohol and substance abuse was brought in because of confusion and not able to care for him at home. Reportedly patient is confused at home, trying to take his 's medications and also smoking marijuana Neurocognitive disorder Dementia not able to take care of him at home Needs placement CM to help with placement 1-1 as needed-has been under close observation now Continue home medications of donezepil and mirtazapine UA not yet collected- pt has been refusing workup/labs at times Continue to monitor Appreciate psych recs--- if behavioral issue Ativan can be used Remains hemodynamically stable with blood pressure on the lower side no apparent distress at rest Has been conversing normally without any acute distress Will be transferred when he is accepted to facility Remains medically stable No acute issues right now and no problem with swallowing Hypotension Pt with occasional episodes of hypotension Receiving IVF occasionally Continue to monitor- consider midodrine if persistent Advised to drink more fluid Blood pressure remains on the lower side at 106/71 Diet: HH, soft bite size DVT prophylaxis: Lovenox Disposition: Pending placement Full code Awaiting placement Admission and Anticipated Discharge Date Admission Date: April 10, 2023 Subjective 04/17/2023 The patient was seen and examined in medical floor She remains stable and did not want to talk to me 04/18/2023 The patient was seen and examined in medical floor He has been conversing normally and denies any symptoms Has been waiting to be placed 04/19/2023 The patient was seen and examined in medical floor He has been stable without any significant symptoms Awaiting placement 04/20/2023 The patient was seen and examined in medical floor He remains stable without any acute symptoms Review of Systems Review of Systems: all noted and negative except for above Physical Exam Physical Exam: Lying in bed comfortably Constitutional: well developed, well nourished and average body habitus; not ill appearing Eyes: PERRL, conjunctivae normal, anicteric sclerae ENMT: external ear and nose normal, oropharynx normal Neck: trachea midline, no thyromegaly Respiratory: no respiratory distress Auscultation: lungs clear to auscultation bilaterally and + diminished lung sounds Cardiovascular: Rate/Rhythm: regular rate, regular rhythm and + bradycardic Heart Sounds: normal S1 and normal S2; no murmur Extremities: no edema Gastrointestinal (Abdomen): Inspection/Auscultation: normal bowel sounds; abdomen not distended Percussion/Palpation: abdomen soft; abdomen nontender Lymphatic: no cervical or axillary lymphadenopathy Results & Data Results & Data Vital Signs (Past 12 Hours) Vital Signs Temp Pulse Resp BP Pulse Ox O2 Del Method 04/20/23 07:07 36.6 C 53 L 16 106/71 98 Room Air Laboratory Results Urine 04/20/23 Range/Units Unknown Urine Color Yellow Urine Appearance Clear (Clear) Urine pH 6.0 (4.5-7.5) Ur Specific [place] 1.006 (1.000-1.030) Urine Protein Negative (Negative) Urine Glucose (UA) Negative (Negative) Medications Administered Current Inpatient Medications Acetaminophen (Acetaminophen 325 Mg Tab) 650 mg PO Q4H PRN PRN Reason: Pain or Fever Stop: 05/10/23 08:23 Aripiprazole (Aripiprazole 10 Mg Tab) 10 mg PO DAILY MICHEL Stop: 05/10/23 08:59 Last Admin: 04/20/23 10:26 Dose: 10 mg Donepezil HCl (Donepezil Hcl 10 Mg Tab) 10 mg PO QDB MICHEL Stop: 05/10/23 08:23 Last Admin: 04/20/23 10:26 Dose: 10 mg Enoxaparin Sodium (Enoxaparin Inj 40 Mg/0.4 Ml Syr) 40 mg SQ Q24H MICHEL Stop: 05/10/23 08:23 Last Admin: 04/20/23 10:26 Dose: 40 mg Mirtazapine (Mirtazapine Tab 15 Mg Tab) 15 mg PO HS MICHEL Stop: 05/10/23 20:59 Last Admin: 04/19/23 21:33 Dose: 15 mg Nitroglycerin (Nitroglycerin Sl 0.4 Mg/Tab Tab) 0.4 mg SL Q5M PRN PRN Reason: Chest Pain Stop: 05/10/23 08:23 Polyethylene Glycol (Polyethylene (Miralax) 17 Gm Pack) 17 gm PO DAILY PRN PRN Reason: Constipation Stop: 05/10/23 08:23 Last Admin: 04/13/23 19:56 Dose: 17 gm
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
[2023-04-20] MEDS: MIRTAZAPINE TAB 15 MG TAB PO SCH (20:28)
[2023-04-21] MEDS: ARIPiprazole 10 MG TAB PO SCH (07:40)
[2023-04-21] MEDS: ENOXAPARIN INJ 40 MG/0.4 ML SYR SQ SCH (07:40)
[2023-04-21] MEDS: DONEPEZIL HCL 10 MG TAB PO SCH (07:40)
--- NOTE | 2023-04-21 12:49 | Hospitalist Progress Note ---
Date of Service April 21, 2023 Assessment & Plan (1) Neurocognitive disorder: Plan: 63 year-old male with past medical history significant for dementia, mood disorder, tardive dyskinesia, past tobacco alcohol and substance abuse was brought in because of confusion and not able to care for him at home. Reportedly patient is confused at home, trying to take his 's medications and also smoking marijuana Neurocognitive disorder Dementia not able to take care of him at home Needs placement CM to help with placement 1-1 as needed-has been under close observation now Continue home medications of donezepil and mirtazapine UA not yet collected- pt has been refusing workup/labs at times Continue to monitor Appreciate psych recs--- if behavioral issue Ativan can be used Remains hemodynamically stable with blood pressure on the lower side no apparent distress at rest Has been conversing normally without any acute distress Will be transferred when he is accepted to facility Remains medically stable No acute issues right now and no problem with swallowing No incidents overnight and remains stable without any symptoms Awaiting placement Hypotension Pt with occasional episodes of hypotension Receiving IVF occasionally Continue to monitor- consider midodrine if persistent Advised to drink more fluid Blood pressure remains on the lower side at 106/71 Diet: HH, soft bite size DVT prophylaxis: Lovenox Disposition: Pending placement Full code Awaiting placement Admission and Anticipated Discharge Date Admission Date: April 10, 2023 Subjective 04/17/2023 The patient was seen and examined in medical floor She remains stable and did not want to talk to me 04/18/2023 The patient was seen and examined in medical floor He has been conversing normally and denies any symptoms Has been waiting to be placed 04/19/2023 The patient was seen and examined in medical floor He has been stable without any significant symptoms Awaiting placement 04/20/2023 The patient was seen and examined in medical floor He remains stable without any acute symptoms 04/21/2023 The patient was seen and examined in medical floor He remains stable and denies any significant symptoms No more aggressive behavior Review of Systems Review of Systems: all noted and negative except for above Physical Exam Physical Exam: Lying in bed comfortably Constitutional: well developed, well nourished and average body habitus; not ill appearing Eyes: PERRL, conjunctivae normal, anicteric sclerae ENMT: external ear and nose normal, oropharynx normal Neck: trachea midline, no thyromegaly Respiratory: no respiratory distress Auscultation: lungs clear to auscultation bilaterally and + diminished lung sounds Cardiovascular: Rate/Rhythm: regular rate, regular rhythm and + bradycardic Heart Sounds: normal S1 and normal S2; no murmur Extremities: no edema Gastrointestinal (Abdomen): Inspection/Auscultation: normal bowel sounds; abdomen not distended Percussion/Palpation: abdomen soft; abdomen nontender Lymphatic: no cervical or axillary lymphadenopathy Results & Data Results & Data Vital Signs (Past 12 Hours) Vital Signs Temp Pulse Resp BP Pulse Ox O2 Del Method 04/21/23 07:52 36.5 C 51 L 16 109/72 96 Room Air 04/21/23 07:50 Room Air Medications Administered Current Inpatient Medications Acetaminophen (Acetaminophen 325 Mg Tab) 650 mg PO Q4H PRN PRN Reason: Pain or Fever Stop: 05/10/23 08:23 Aripiprazole (Aripiprazole 10 Mg Tab) 10 mg PO DAILY MICHEL Stop: 05/10/23 08:59 Last Admin: 04/21/23 07:40 Dose: 10 mg Donepezil HCl (Donepezil Hcl 10 Mg Tab) 10 mg PO QDB MICHEL Stop: 05/10/23 08:23 Last Admin: 04/21/23 07:40 Dose: 10 mg Enoxaparin Sodium (Enoxaparin Inj 40 Mg/0.4 Ml Syr) 40 mg SQ Q24H MICHEL Stop: 05/10/23 08:23 Last Admin: 04/21/23 07:40 Dose: 40 mg Mirtazapine (Mirtazapine Tab 15 Mg Tab) 15 mg PO HS MICHEL Stop: 05/10/23 20:59 Last Admin: 04/20/23 20:28 Dose: Not Given Nitroglycerin (Nitroglycerin Sl 0.4 Mg/Tab Tab) 0.4 mg SL Q5M PRN PRN Reason: Chest Pain Stop: 05/10/23 08:23 Polyethylene Glycol (Polyethylene (Miralax) 17 Gm Pack) 17 gm PO DAILY PRN PRN Reason: Constipation Stop: 05/10/23 08:23 Last Admin: 04/13/23 19:56 Dose: 17 gm
[2023-04-21] MEDS: MIRTAZAPINE TAB 15 MG TAB PO SCH (19:48)
[2023-04-22] MEDS: DONEPEZIL HCL 10 MG TAB PO SCH (08:09)
[2023-04-22] MEDS: ENOXAPARIN INJ 40 MG/0.4 ML SYR SQ SCH (08:09)
[2023-04-22] MEDS: ARIPiprazole 10 MG TAB PO SCH (08:09)
--- NOTE | 2023-04-22 19:04 | Hospitalist Progress Note ---
Date of Service April 22, 2023 Assessment & Plan (1) Neurocognitive disorder: Plan: 63 year-old male with past medical history significant for dementia, mood disorder, tardive dyskinesia, past tobacco alcohol and substance abuse was brought in because of confusion and not able to care for him at home. Reportedly patient is confused at home, trying to take his 's medications and also smoking marijuana Neurocognitive disorder Dementia not able to take care of him at home Needs placement CM to help with placement 1-1 as needed-has been under close observation now Continue home medications of donezepil and mirtazapine UA not yet collected- pt has been refusing workup/labs at times Continue to monitor Appreciate psych recs--- if behavioral issue Ativan can be used Remains hemodynamically stable with blood pressure on the lower side no apparent distress at rest Has been conversing normally without any acute distress Will be transferred when he is accepted to facility Remains medically stable No acute issues right now and no problem with swallowing No incidents overnight and remains stable without any symptoms Awaiting placement-he will be going to the facility Will discuss with the corrections caseworker for disposition from Hypotension Pt with occasional episodes of hypotension Receiving IVF occasionally Continue to monitor- consider midodrine if persistent Advised to drink more fluid Blood pressure remains on the lower side at 106/71 Advised to drink more fluid Diet: HH, soft bite size DVT prophylaxis: Lovenox Disposition: Pending placement Full code Awaiting placement Admission and Anticipated Discharge Date Admission Date: April 10, 2023 Subjective 04/17/2023 The patient was seen and examined in medical floor She remains stable and did not want to talk to me 04/18/2023 The patient was seen and examined in medical floor He has been conversing normally and denies any symptoms Has been waiting to be placed 04/19/2023 The patient was seen and examined in medical floor He has been stable without any significant symptoms Awaiting placement 04/20/2023 The patient was seen and examined in medical floor He remains stable without any acute symptoms 04/21/2023 The patient was seen and examined in medical floor He remains stable and denies any significant symptoms No more aggressive behavior 04/22/2023 The patient was seen and examined in medical floor He remains stable to be discharged Review of Systems Review of Systems: all noted and negative except for above Physical Exam Physical Exam: Lying in bed comfortably Constitutional: well developed, well nourished and average body habitus; not ill appearing Eyes: PERRL, conjunctivae normal, anicteric sclerae ENMT: external ear and nose normal, oropharynx normal Neck: trachea midline, no thyromegaly Respiratory: no respiratory distress Auscultation: lungs clear to auscultation bilaterally and + diminished lung sounds Cardiovascular: Rate/Rhythm: regular rate, regular rhythm and + bradycardic Heart Sounds: normal S1 and normal S2; no murmur Extremities: no edema Gastrointestinal (Abdomen): Inspection/Auscultation: normal bowel sounds; abdomen not distended Percussion/Palpation: abdomen soft; abdomen nontender Lymphatic: no cervical or axillary lymphadenopathy Results & Data Results & Data Vital Signs (Past 12 Hours) Vital Signs Temp Pulse Resp BP Pulse Ox O2 Del Method 04/22/23 15:07 36.7 C 54 L 16 94/62 L 94 Room Air 04/22/23 07:10 36.6 C 56 L 14 94/66 L 94 Room Air
[2023-04-22] MEDS: MIRTAZAPINE TAB 15 MG TAB PO SCH (20:13)
[2023-04-23] MEDS: DONEPEZIL HCL 10 MG TAB PO SCH (07:45)
[2023-04-23] MEDS: ENOXAPARIN INJ 40 MG/0.4 ML SYR SQ SCH (07:45)
[2023-04-23] MEDS: ARIPiprazole 10 MG TAB PO SCH (07:45)
--- NOTE | 2023-04-23 15:57 | Hospitalist Progress Note ---
Date of Service April 23, 2023 Assessment & Plan (1) Neurocognitive disorder: Plan: 63 year-old male with past medical history significant for dementia, mood disorder, tardive dyskinesia, past tobacco alcohol and substance abuse was brought in because of confusion and not able to care for him at home. Reportedly patient is confused at home, trying to take his 's medications and also smoking marijuana Neurocognitive disorder Dementia not able to take care of him at home Needs placement CM to help with placement 1-1 as needed-has been under close observation now Continue home medications of donezepil and mirtazapine UA not yet collected- pt has been refusing workup/labs at times Continue to monitor Appreciate psych recs--- if behavioral issue Ativan can be used Remains hemodynamically stable with blood pressure on the lower side no apparent distress at rest Has been conversing normally without any acute distress Will be transferred when he is accepted to facility Remains medically stable No acute issues right now and no problem with swallowing No incidents overnight and remains stable without any symptoms Awaiting placement-he will be going to the facility Will discuss with the protective services case worker for disposition from Medically stable to be discharged and will be done tomorrow Hypotension Pt with occasional episodes of hypotension Receiving IVF occasionally Continue to monitor- consider midodrine if persistent Advised to drink more fluid Blood pressure remains on the lower side at 106/71 Advised to drink more fluid Blood pressure remains on the lower side of normal at 96/60 Diet: HH, soft bite size DVT prophylaxis: Lovenox Disposition: Pending placement Full code Admission and Anticipated Discharge Date Admission Date: April 10, 2023 Subjective 04/17/2023 The patient was seen and examined in medical floor She remains stable and did not want to talk to me 04/18/2023 The patient was seen and examined in medical floor He has been conversing normally and denies any symptoms Has been waiting to be placed 04/19/2023 The patient was seen and examined in medical floor He has been stable without any significant symptoms Awaiting placement 04/20/2023 The patient was seen and examined in medical floor He remains stable without any acute symptoms 04/21/2023 The patient was seen and examined in medical floor He remains stable and denies any significant symptoms No more aggressive behavior 04/22/2023 The patient was seen and examined in medical floor He remains stable to be discharged 04/23/2023 The patient was seen and examined in medical floor He remains stable and will be discharged tomorrow Physical Exam Physical Exam: Lying in bed comfortably Constitutional: well developed, well nourished and average body habitus; not ill appearing Eyes: PERRL, conjunctivae normal, anicteric sclerae ENMT: external ear and nose normal, oropharynx normal Neck: trachea midline, no thyromegaly Respiratory: no respiratory distress Auscultation: lungs clear to auscultation bilaterally and + diminished lung sounds Cardiovascular: Rate/Rhythm: regular rate, regular rhythm and + bradycardic Heart Sounds: normal S1 and normal S2; no murmur Extremities: no edema Gastrointestinal (Abdomen): Inspection/Auscultation: normal bowel sounds; abdomen not distended Percussion/Palpation: abdomen soft; abdomen nontender Lymphatic: no cervical or axillary lymphadenopathy Results & Data Results & Data Vital Signs (Past 12 Hours) Vital Signs Temp Pulse Resp BP Pulse Ox O2 Del Method 04/23/23 15:36 36.6 C 61 14 96/60 L 95 Room Air 04/23/23 07:44 36.6 C 55 L 16 101/66 99 Room Air 04/23/23 07:16 Room Air
[2023-04-23] MEDS: MIRTAZAPINE TAB 15 MG TAB PO SCH (20:16)
[2023-04-24] MEDS: ENOXAPARIN INJ 40 MG/0.4 ML SYR SQ SCH (07:37)
[2023-04-24] MEDS: DONEPEZIL HCL 10 MG TAB PO SCH (07:37)
[2023-04-24] MEDS: ARIPiprazole 10 MG TAB PO SCH (07:37)
--- NOTE | 2023-04-24 10:35 | Discharge Summary ---
Date of Service April 24, 2023 Admission HPI Per Admitting Provider 63-year-old male with past medical significant for dementia, mood disorder, tardive dyskinesia, past tobacco alcohol and substance abuse was brought in because of confusion and not able to care for him at home. Called but not able to reach her. Seems patient is confused at home, trying to take his 's medications and also trying to smoke marijuana. Currently patient resting comfortably. Can tell his name and his date of and knows that he is in the hospital. But could not tell current dates. Denies any headache. Denies any cough. Denies nausea. Denies any chest pain or shortness of breath. Denies abdominal pain. States he moving bowels ok. States he is moving his bladder okay. Past med history. As mentioned above Past surgical history. Knee surgery as per records Family history leukemia, diabetes Social history. As per records past tobacco, abuse, past alcohol abuse , past substance abuse. Currently living with his . Admission Exam Per Admitting Provider General- Not in distress. Head- atraumatic Eyes- PERRL. ENT- oropharynx clear Neck- supple, no JVD. Lungs- clear to auscultation, no wheezing or crackles. Heart- regular rhythm; no murmur, no gallop. Abdomen- normal bowel sounds, soft, nontender, no distension. Extremities- no pretibial edema, no erythema seen. Neuro- alert, oriented x 2; PERRL, no facial palsy; no dysarthria; obeys simple commands. Skin- warm & dry Principal Diagnosis Confusion History of neurocognitive disorder History of dementia Discharge Exam GENERAL: Alert and oriented x3. NAD, on RA. HEENT: No pallor, no icterus. Pupils equal, round and reactive to light. Oral mucosa moist. NECK: No JVD, no neck masses. HEART: S1 and S2 heard. Regular rate and rhythm. bradycardia. No murmur, no gallop. RESPIRATORY SYSTEM: Normal AP diameter. No accessory muscle use. No wheezing, no crackles. ABDOMEN: Soft, bowel sounds present, nontender, no distention. CENTRAL NERVOUS SYSTEM: No facial droop. Speech is clear. Obeys simple comma nds. Moves extremities. EXTREMITIES: No edema, no erythema seen. Discharge Data Allergies Allergy/AdvReac Type Severity Reaction Status Date / Time No Known Allergies Allergy NONE Verified 11/29/23 02:41 Consultations 04/10/23 04:25 ED Decision to Admit Stat 04/11/23 08:10 Consult Psychiatry Routine Hospital Course (1) Neurocognitive disorder: Per Prior attending w/ Addendum: Addendum by prior Attending. April 24, 2023 10:12 Further reviewing the note it was noted that the psychiatric suggest just for trial of estradiol. The patient remains medically stable and does not have any acute psychotic features, Estradiol can cause more of the cardiac symptoms and also increase the risk of blood clot formation Will will not initiate any medications at this time which can be tried as an outpatient if the symptoms persist. He remains medically stable with the current regimen which will be continued. Dr Gladis Agrawal 63 year-old male with past medical history significant for dementia, mood disorder, tardive dyskinesia, past tobacco alcohol and substance abuse was brought in because of confusion and not able to care for him at home. Reportedly patient is confused at home, trying to take his 's medications and also smoking marijuana Neurocognitive disorder Dementia not able to take care of him at home Needs placement CM to help with placement 1-1 as needed-has been under close observation now Continue home medications of donezepil and mirtazapine UA not yet collected- pt has been refusing workup/labs at times Continue to monitor Appreciate psych recs--- if behavioral issue Ativan can be used Remains hemodynamically stable with blood pressure on the lower side no apparent distress at rest Has been conversing normally without any acute distress Will be transferred when he is accepted to facility Remains medically stable No acute issues right now and no problem with swallowing No incidents overnight and remains stable without any symptoms Awaiting placement-he will be going to the facility Will discuss with the block and case maker for disposition from Medically stable to be discharged and will be done tomorrow Hypotension Pt with occasional episodes of hypotension Receiving IVF occasionally Continue to monitor- consider midodrine if persistent Advised to drink more fluid Blood pressure remains on the lower side at 106/71 Advised to drink more fluid Blood pressure remains on the lower side of normal at 96/60 Diet: HH, soft bite size DVT prophylaxis: Lovenox Disposition: Pending placement Full code Addendum: Patient was seen and examined at bedside. Patient was lying in bed, on room air, resting comfortably, hemodynamically stable, alert and oriented x 3. Patient reports breathing better, reports eating okay and moving bowels okay, denies any complaints. Denies dizziness. Discussed with prior attending, plan to continue current meds. He has been stable, no psychotic features per prior attending, no psychotic features on my eval, he has been waiting to be discharged. CM notified myself that Police is picking him up at 1100 hrs. He is being discharged with the following instruction at the point of discharge: Follow-up with your primary care physician within a week time and likely you will need labs CBC/CMP/magnesium/phosphorus. Follow-up with psychiatrist as an outpatient for ongoing management of your dementia, progressive cognitive decline, depression with psychotic features. Continue medications as prescribed. Please make sure that you are able to get your medications today by calling your pharmacy before you leave the hospital so that your treatment continuity is not broken. Home Health Attestation I certify that this patient is under my care and that I, or a physicians special events assistant working with me, had a face to-face encounter that meets the home health [id number] encounter requirements with this patient. The encounter with the patient was in whole, or in part, for the following ut dical condition, which is the primary reason for home health care (list medical condition): I certify that, based on my findings, the following services are medically neces ok home health services: My clinical findings support the need for the above services because: Further, I certify that my clinical findings support that this patient is homebound (i.e. absences from home require considerable and taxing effort and are for medical reasons or mosque services or infrequently or of short duration when for other reasons) because: Certification for Home Health Services: Based on the above findings, I certify that this patient is confined to the home and needs intermittent snf care, physical therapy and/or speech therapy or continues to need occupational therapy. The patient is under my care, and I have initiated the establishment of the plan of care. This patient will be followed by a physician who will periodically review the plan of care. Total Time Total Time Spent Total Time Spent (In Minutes): 35 Discharge Plan Discharge Items [facility] Reason For Visit: CONFUSION, PLACEMENT Discharge Diagnosis: Confusion History of neurocognitive disorder History of dementia Activity: Resume your previous activity Non-emergency contact: Primary Care Provider Call non-emergency contact if: you have any medication questions, your symptoms worsen and your temperature is above 101.5 Follow-up/Referrals: Reid Bolden PA-C [Primary Care Provider] - Diet: Regular Diet Texture: Easy to Chew Addtl Attending Provider Instructions: Follow-up with your primary care physician within a week time and likely you will need labs CBC/CMP/magnesium/phosphorus. Follow-up with psychiatrist as an outpatient for ongoing management of your dementia, progressive cognitive decline, depression with psychotic features. Continue medications as prescribed. Please make sure that you are able to get your medications today by calling your pharmacy before you leave the hospital so that your treatment continuity is not broken. Pending Studies at Discharge: No Stand-Alone Forms: My [employer], Smoking Cessation Skilled Items Patient informed of condition?: Yes Discharge Level of Care: Other Communicable Disease: No Discharge Prognosis: Stable Lines: None Urinary Catheter: No Medications and DC Order Prescriptions: Continued ondansetron HCl 4 mg tablet 4 mg PO Q8 PRN (Reason: Nausea And Vomiting) donepezil 10 mg tablet 10 mg PO QDB aripiprazole 10 mg tablet 10 mg PO DAILY mirtazapine 15 mg tablet 15 mg PO HS Discharge Orders: Discharge Order (Routine); Ordered 04/24/23 Ordered By: Ike Quach Admission Data Admit Date/Time: 04/10/23 06:01 Attending Provider: Ike Quach Admit Provider: Charles Sher Primary Care Provider: Reid Bolden Other Providers: Charles Sher; Marleny Dillard; Michelle Milligan; Tim Galloway; [facility]; Bradford Mccloud
== END 2023-04-24 11:23 | DRG 884 ==
LOC: ED 01:52 → EDINP 06:01 → SUATTDRO 06:01 → 3W 08:28
DX: R41.9 Unspecified symptoms and signs involving cognitive functions and awareness; I95.9 Hypotension, unspecified; F03.918 Unspecified dementia, unspecified severity, with other behavioral disturbance; F17.210 Nicotine dependence, cigarettes, uncomplicated; R32 Unspecified urinary incontinence; G93.40 Encephalopathy, unspecified; N39.0 Urinary tract infection, site not specified; G24.01 Drug induced subacute dyskinesia

== ENCOUNTER 2023-04-28 16:17 | Inpatient (IN) ==
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
--- NOTE | 2023-04-28 17:14 | XRay Report ---
SINGLE VIEW CHEST CLINICAL HISTORY: Generalized weakness. FINDINGS: An AP, portable, upright chest radiograph is compared to study dated 02/06/2022. There are c alcified left hilar nodes. The cardiomediastinal silhouette is unremarkable. A calcified granuloma is again noted at the left lung base. The lungs and pleural spaces are otherwise clear. No pneumothorax is seen. The bony thorax is grossly intact. IMPRESSION: No active disease in the chest. ACT 112: Negative or not required by law. Electronically signed by: Felice Granados M.D. 04/28/2023 5:11 PM
[2023-04-28] MEDS ORDERED: SODIUM CHLORIDE 0.9% 1,000 ML IV ONE (17:20)
--- NOTE | 2023-04-28 17:33 | CT Scan Report ---
CT SCAN OF THE BRAIN WITHOUT IV CONTRAST CLINICAL HISTORY: Change in mental status. COMPARISON STUDY: CT of the brain dated 02/05/2023. TECHNIQUE: Unenhanced axial CT scan of the brain is performed from the vertex to the skull base. A d ose lowering technique was utilized adhering to the principles of ALARA. CT DOSE: 547.75 mGy.cm FINDINGS: Brain parenchyma: The brain parenchyma is normal in appearance. There is no hemorrhage, mass effect, or evidence of acute territorial ischemia by CT criteria. Song-white matter differentiation is preser justice. No extra-axial fluid collection is seen. Ventricles, sulci, cisterns: Normal in configuration. Intracranial vasculature: There is mild atherosclerotic calcification of the cavernous carotid arteri es. Calvarium: Unremarkable. Sinuses and mastoids: The visualized paranasal sinuses are clear. The mastoid air cells are well pneu matized. Orbits: The bony orbits are grossly intact. IMPRESSION: There is no hemorrhage, mass effect, or evidence of acute territorial ischemia by CT guanako scruggs. ACT 112: Negative or not required by law. Electronically signed by: Felice Granados M.D. 04/28/2023 5:32 PM
[2023-04-28 17:34] LABS: Albumin Level 4.1 gm/dl (3.4-5.0); Anion Gap 5 (3-11); Bilirubin,Total 0.5 mg/dl (0.2-1.0); Calcium 9.4 mg/dl (8.6-10.3); Carbon Dioxide 30 mmol/L (21-32); Chloride 105 mmol/L (98-107); Potassium 3.2 mmol/L (3.5-5.1); Sodium 140 mmol/L (136-145)
[2023-04-28 17:40] LABS: Alanine Aminotransferase 14 U/L (7-52); Albumin Globulin Ratio 1.5 (0.9-2); Alkaline Phosphatase 43 U/L (34-104); Aspartate Aminotransferase 15 U/L (13-39); BUN Creatinine Ratio 21.7 (10-20); Blood Urea Nitrogen 18 mg/dl (6-23); Creatine Kinase 29 U/L (30-223); Est GFR (Non-African American) 92.3 ml/min; Globulin 2.7 gm/dl (2.5-4.0); Glucose 251 mg/dl (70-99(Fasting)); Total Protein 6.8 gm/dl (6.0-8.3)
[2023-04-28 17:46] LABS: Troponin I High Sensitivity < 2.3 pg/ml (0-20)
[2023-04-28 17:55] LABS: Thyroid Stimulating Hormone 1.357 uIu/ml (0.300-4.500)
[2023-04-28 18:12] LABS: Prothrombin Time 11.3 Seconds (9.0-12.0)
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
[2023-04-28 19:04] LABS: Basophils # (auto) 0.01 K/uL (0.00-0.20); Basophils % (auto) 0.2 %; Eosinophils # (auto) 0.06 K/uL (0.00-0.50); Eosinophils % (auto) 1.3 %; Hematocrit (blood only) 42.6 % (42.0-52.0); Hemoglobin 14.3 g/dl (14.0-18.0); Immature Granulocytes # (auto) 0.05 K/uL (0.01-0.20); Immature Granulocytes % (auto) 1.1 %; Lymphocytes # (auto) 1.29 K/uL (1.20-3.40); Lymphocytes % (auto) 28.7 %; Mean Corpuscular Hemoglobin 29.9 pg (25.0-34.0); Mean Corpuscular Hgb Conc 33.6 g/dL (32.0-36.0); Mean Corpuscular Volume 88.9 fL (80.0-100.0); Mean Platelet Volume 10.2 fL (9.4-12.4); Monocytes # (auto) 0.28 K/uL (0.11-0.59); Monocytes % (auto) 6.2 %; Neutrophils % (auto) 62.5 %; Platelet Count 199 K/uL (130-400); RDW Coefficient of Variation 12.7 % (11.5-14.5); RDW Standard Deviation 41.2 fL (36.4-46.3); Red Blood Count 4.79 M/uL (4.70-6.10); White Blood Count 4.49 K/ul (4.8-10.8)
[2023-04-28] MEDS ORDERED: POLYETHYLENE (MIRALAX) 17 GM PACK PO PRN (20:29)
[2023-04-28] MEDS ORDERED: ACETAMINOPHEN 325 MG TAB PO PRN (20:29)
[2023-04-28] MEDS ORDERED: POTASSIUM CHLORIDE CRTAB 20 MEQ TABCR PO STA (21:10)
[2023-04-28] MEDS: SODIUM CHLORIDE 0.9% 1,000 ML IV SCH (21:40)
[2023-04-28] MEDS: cefTRIAXone SODIUM 1,000 MG in DEXTROSE 5 % MINI-B 50 ML IV SCH (21:41)
[2023-04-29 03:08] LABS: Appearance Urine Turbid (Clear); Bacteria Urine Automated Negative (Negative); Bilirubin Urine Negative (Negative); Blood Urine 1+ (Negative); Color Urine Yellow; Epithelial Cell Urine Auto 0-5 /lpf (0-5); Glucose Urine UA Negative (Negative); Ketones Urine Negative (Negative); Leukocyte Esterase Urine 3+ (Negative); Nitrite Urine Negative (Negative); Specific Gravity Urine 1.022 (1.000-1.030); Urobilinogen Urine Positive (Negative); WBC Urine Automated >30 /hpf (0-5); pH Urine 7.5 (4.5-7.5)
[2023-04-29 03:11] LABS: Protein Urine 2+ (Negative)
[2023-04-29 03:43] LABS: Amphetamines+Metham, Urine Neg (Neg); Barbiturates, Urine Neg (Neg); Benzodiazepine, Urine Neg (Neg); Cocaine, Urine Neg (Neg); MDMA (Ecstacy), Urine Neg (Neg); Marijuana, Urine Pos (Neg); Methadone, Urine Neg (Neg); Opiate, Urine Neg (Neg); Phencyclidine, Urine Neg (Neg)
[2023-04-29 04:47] LABS: Hematocrit (blood only) 38.1 % (42.0-52.0); Hemoglobin 12.7 g/dl (14.0-18.0); Mean Corpuscular Hemoglobin 29.5 pg (25.0-34.0); Mean Corpuscular Hgb Conc 33.3 g/dL (32.0-36.0); Mean Corpuscular Volume 88.6 fL (80.0-100.0); Mean Platelet Volume 9.6 fL (9.4-12.4); Platelet Count 183 K/uL (130-400); RDW Coefficient of Variation 12.7 % (11.5-14.5); RDW Standard Deviation 41.1 fL (36.4-46.3); White Blood Count 6.76 K/ul (4.8-10.8)
[2023-04-29 04:59] LABS: Creatinine Clr Calc Pharmacy 114.8 ml/min; Est GFR (African American) 123.1 ml/min; Est GFR (Non-African American) 106.2 ml/min
[2023-04-29] MEDS: SODIUM CHLORIDE 0.9% 1,000 ML IV SCH (05:55)
[2023-04-29] MEDS ORDERED: ARIPiprazole 10 MG TAB PO SCH (09:00)
[2023-04-29] MEDS: DONEPEZIL HCL 10 MG TAB PO SCH (09:37)
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
[2023-04-29] MEDS: ENOXAPARIN INJ 40 MG/0.4 ML SYR SQ SCH (23:02)
[2023-04-29] MEDS: cefTRIAXone SODIUM 1,000 MG in DEXTROSE 5 % MINI-B 50 ML IV SCH (23:02)
[2023-04-29] MEDS: MIRTAZAPINE TAB 15 MG TAB PO SCH (23:02)
[2023-04-30 03:53] LABS: Hematocrit (blood only) 37.7 % (42.0-52.0); Hemoglobin 12.1 g/dl (14.0-18.0); Mean Corpuscular Hemoglobin 28.9 pg (25.0-34.0); Mean Corpuscular Hgb Conc 32.1 g/dL (32.0-36.0); Mean Platelet Volume 9.9 fL (9.4-12.4); Platelet Count 174 K/uL (130-400); RDW Coefficient of Variation 12.6 % (11.5-14.5); RDW Standard Deviation 41.4 fL (36.4-46.3); Red Blood Count 4.19 M/uL (4.70-6.10); White Blood Count 6.05 K/ul (4.8-10.8)
[2023-04-30 04:05] LABS: BUN Creatinine Ratio 15.7 (10-20); Calcium 7.1 mg/dl (8.6-10.3); Creatinine Clr Calc Pharmacy 81.6 ml/min; Est GFR (Non-African American) 92.3 ml/min; Magnesium 1.5 mg/dl (1.7-2.4); Phosphorus 2.1 mg/dl (2.5-4.9); Potassium 3.4 mmol/L (3.5-5.1)
--- NOTE | 2023-04-30 06:02 | Electrocardiogram Report ---
Test Reason : Blood Pressure : / mmHG Vent. Rate : 062 BPM Atrial Rate : 062 BPM P-R Int : 144 ms QRS Dur : 100 ms QT Int : 422 ms P-R-T Axes : 047 002 042 degrees QTc Int : 428 ms Normal sinus rhythm Normal ECG When compared with ECG of 10-APR-2023 02:49, No significant change was found Confirmed by Rohan Vieira ([id number]) on 04/30/2023 6:02:07 AM Referred By: REFERRED SELF Confirmed By:Rohan Vieira
[2023-04-30] MEDS ORDERED: POTASSIUM CHLORIDE CRTAB 20 MEQ TABCR PO STA (08:50)
[2023-04-30] MEDS ORDERED: ZIPRASIDONE 20 MG/ML SDV IM PRN (08:52)
[2023-04-30] MEDS ORDERED: ARIPiprazole 15 MG TAB PO SCH (09:00)
[2023-04-30] MEDS: ARIPiprazole 5 MG TAB PO SCH (09:20)
[2023-04-30] MEDS: POT PHOSPHATE MONOBASIC W/ SOD TAB PO SCH ×4 (09:21→20:36)
[2023-04-30] MEDS: MAGNESIUM SULFATE / D5W 1 GM/100 ML BAG IV SCH ×2 (09:26→11:29)
[2023-04-30] MEDS ORDERED: ESTRADIOL TOP SCH (12:00)
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
[2023-04-30] MEDS: DONEPEZIL HCL 10 MG TAB PO SCH (16:28)
[2023-04-30] MEDS: ESTRADIOL TD SCH (17:30)
[2023-04-30] MEDS: MIRTAZAPINE TAB 15 MG TAB PO SCH (20:35)
[2023-04-30] MEDS: ENOXAPARIN INJ 40 MG/0.4 ML SYR SQ SCH (20:36)
[2023-04-30] MEDS: ARIPiprazole 10 MG TAB PO SCH (20:36)
[2023-05-01 06:27] LABS: Hematocrit (blood only) 40.8 % (42.0-52.0); Hemoglobin 13.2 g/dl (14.0-18.0); Mean Corpuscular Hemoglobin 28.9 pg (25.0-34.0); Mean Corpuscular Hgb Conc 32.4 g/dL (32.0-36.0); Mean Corpuscular Volume 89.5 fL (80.0-100.0); Mean Platelet Volume 9.6 fL (9.4-12.4); Platelet Count 182 K/uL (130-400); RDW Coefficient of Variation 12.6 % (11.5-14.5); RDW Standard Deviation 41.5 fL (36.4-46.3); Red Blood Count 4.56 M/uL (4.70-6.10); White Blood Count 5.67 K/ul (4.8-10.8)
[2023-05-01 06:44] LABS: BUN Creatinine Ratio 11.9 (10-20); Calcium 8.3 mg/dl (8.6-10.3); Creatinine Clr Calc Pharmacy 79.6 ml/min; Est GFR (African American) 106.5 ml/min; Est GFR (Non-African American) 91.9 ml/min; Magnesium 2.1 mg/dl (1.7-2.4); Phosphorus 2.9 mg/dl (2.5-4.9); Potassium 3.4 mmol/L (3.5-5.1)
[2023-05-01 07:17] LABS: Marijuana Quant, GCMS Urine 36 ng/mL (<5)
[2023-05-01] MEDS: ARIPiprazole 5 MG TAB PO SCH (10:50)
[2023-05-01] MEDS ORDERED: POTASSIUM CHLORIDE PWD 20 MEQ PACK PO ONE (13:36)
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
[2023-05-01] MEDS: MIRTAZAPINE TAB 15 MG TAB PO SCH (20:06)
[2023-05-01] MEDS: ARIPiprazole 10 MG TAB PO SCH (20:06)
[2023-05-01] MEDS: ENOXAPARIN INJ 40 MG/0.4 ML SYR SQ SCH (20:06)
[2023-05-01] MEDS: cefTRIAXone SODIUM 1,000 MG in DEXTROSE 5 % MINI-B 50 ML IV SCH (20:07)
[2023-05-02] MEDS: ARIPiprazole 5 MG TAB PO SCH (09:30)
[2023-05-02 10:34] LABS: Hematocrit (blood only) 40.1 % (42.0-52.0); Hemoglobin 13.4 g/dl (14.0-18.0); Mean Corpuscular Hemoglobin 29.6 pg (25.0-34.0); Mean Corpuscular Hgb Conc 33.4 g/dL (32.0-36.0); Mean Corpuscular Volume 88.7 fL (80.0-100.0); Mean Platelet Volume 9.8 fL (9.4-12.4); Platelet Count 187 K/uL (130-400); RDW Coefficient of Variation 12.6 % (11.5-14.5); RDW Standard Deviation 41.3 fL (36.4-46.3); Red Blood Count 4.52 M/uL (4.70-6.10); White Blood Count 4.67 K/ul (4.8-10.8)
[2023-05-02 10:38] LABS: BUN Creatinine Ratio 13.8 (10-20); Calcium 8.4 mg/dl (8.6-10.3); Creatinine Clr Calc Pharmacy 76.7 ml/min; Est GFR (Non-African American) 90.6 ml/min; Magnesium 1.9 mg/dl (1.7-2.4); Phosphorus 2.7 mg/dl (2.5-4.9)
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
[2023-05-02] MEDS: cefTRIAXone SODIUM 1,000 MG in DEXTROSE 5 % MINI-B 50 ML IV SCH (19:37)
[2023-05-02] MEDS: ENOXAPARIN INJ 40 MG/0.4 ML SYR SQ SCH (20:28)
[2023-05-02] MEDS: ARIPiprazole 10 MG TAB PO SCH (20:29)
[2023-05-02] MEDS: MIRTAZAPINE TAB 15 MG TAB PO SCH (20:29)
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
[2023-05-03] MEDS: ARIPiprazole 5 MG TAB PO SCH (09:27)
[2023-05-03] MEDS: cefTRIAXone SODIUM 1,000 MG in DEXTROSE 5 % MINI-B 50 ML IV SCH (18:24)
[2023-05-03] MEDS: ENOXAPARIN INJ 40 MG/0.4 ML SYR SQ SCH (20:11)
[2023-05-03] MEDS: ARIPiprazole 10 MG TAB PO SCH (20:11)
[2023-05-03] MEDS: MIRTAZAPINE TAB 15 MG TAB PO SCH (20:12)
[2023-05-04] MEDS: ARIPiprazole 5 MG TAB PO SCH (09:48)
[2023-05-04] MEDS: cefTRIAXone SODIUM 1,000 MG in DEXTROSE 5 % MINI-B 50 ML IV SCH (15:56)
[2023-05-04] MEDS: ESTRADIOL TD SCH (15:57)
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
[2023-05-04] MEDS: MIRTAZAPINE TAB 15 MG TAB PO SCH (21:45)
[2023-05-04] MEDS: ENOXAPARIN INJ 40 MG/0.4 ML SYR SQ SCH (21:45)
[2023-05-04] MEDS: ARIPiprazole 10 MG TAB PO SCH (21:45)
[2023-05-05] MEDS: ARIPiprazole 5 MG TAB PO SCH (10:07)
[2023-05-05] MEDS: THIAMINE HCL 100 MG TAB PO SCH (10:07)
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
[2023-05-05] MEDS: cefTRIAXone SODIUM 1,000 MG in DEXTROSE 5 % MINI-B 50 ML IV SCH (18:15)
[2023-05-05] MEDS: ENOXAPARIN INJ 40 MG/0.4 ML SYR SQ SCH (22:07)
[2023-05-05] MEDS: ARIPiprazole 10 MG TAB PO SCH (22:07)
[2023-05-05] MEDS: MIRTAZAPINE TAB 15 MG TAB PO SCH (22:08)
[2023-05-06] MEDS: ARIPiprazole 5 MG TAB PO SCH (10:15)
[2023-05-06] MEDS: THIAMINE HCL 100 MG TAB PO SCH (10:16)
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
[2023-05-06] MEDS: ARIPiprazole 10 MG TAB PO SCH (21:50)
[2023-05-06] MEDS: ENOXAPARIN INJ 40 MG/0.4 ML SYR SQ SCH (21:50)
[2023-05-06] MEDS: cefUROXime axetil 250 MG TABLET PO SCH (21:50)
[2023-05-06] MEDS: MIRTAZAPINE TAB 15 MG TAB PO SCH (21:50)
[2023-05-07] MEDS: ARIPiprazole 5 MG TAB PO SCH (09:53)
[2023-05-07] MEDS: THIAMINE HCL 100 MG TAB PO SCH (09:53)
[2023-05-07] MEDS: cefUROXime axetil 250 MG TABLET PO SCH ×2 (09:53→20:44)
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
[2023-05-07] MEDS: ARIPiprazole 10 MG TAB PO SCH (20:44)
[2023-05-07] MEDS: ENOXAPARIN INJ 40 MG/0.4 ML SYR SQ SCH (20:45)
[2023-05-07] MEDS: MIRTAZAPINE TAB 15 MG TAB PO SCH (21:20)
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
[2023-05-08] MEDS: ARIPiprazole 5 MG TAB PO SCH (14:54)
[2023-05-08] MEDS: cefUROXime axetil 250 MG TABLET PO SCH (14:54)
[2023-05-08] MEDS: THIAMINE HCL 100 MG TAB PO SCH (14:55)
[2023-05-08] MEDS: ESTRADIOL TD SCH (18:01)
[2023-05-08] MEDS: ENOXAPARIN INJ 40 MG/0.4 ML SYR SQ SCH (20:37)
[2023-05-08] MEDS: ARIPiprazole 10 MG TAB PO SCH (20:37)
[2023-05-08] MEDS: MIRTAZAPINE TAB 15 MG TAB PO SCH (20:37)
[2023-05-09] MEDS: THIAMINE HCL 100 MG TAB PO SCH (07:26)
[2023-05-09] MEDS: ARIPiprazole 5 MG TAB PO SCH (07:26)
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
[2023-05-09] MEDS: ENOXAPARIN INJ 40 MG/0.4 ML SYR SQ SCH (20:02)
[2023-05-09] MEDS: ARIPiprazole 10 MG TAB PO SCH (20:02)
[2023-05-09] MEDS: MIRTAZAPINE TAB 15 MG TAB PO SCH (20:02)
[2023-05-10] MEDS: ARIPiprazole 5 MG TAB PO SCH (10:25)
[2023-05-10] MEDS: THIAMINE HCL 100 MG TAB PO SCH (10:25)
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
[2023-05-10] MEDS: ENOXAPARIN INJ 40 MG/0.4 ML SYR SQ SCH (20:00)
[2023-05-10] MEDS: ARIPiprazole 10 MG TAB PO SCH (20:00)
[2023-05-10] MEDS: MIRTAZAPINE TAB 15 MG TAB PO SCH (20:00)
[2023-05-11] MEDS: THIAMINE HCL 100 MG TAB PO SCH (08:33)
[2023-05-11] MEDS: ARIPiprazole 5 MG TAB PO SCH (08:33)
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
[2023-05-11] MEDS: ARIPiprazole 10 MG TAB PO SCH (20:06)
[2023-05-11] MEDS: MIRTAZAPINE TAB 15 MG TAB PO SCH (20:06)
[2023-05-11] MEDS: ENOXAPARIN INJ 40 MG/0.4 ML SYR SQ SCH (20:06)
[2023-05-12] MEDS: THIAMINE HCL 100 MG TAB PO SCH (11:05)
[2023-05-12] MEDS: ARIPiprazole 5 MG TAB PO SCH (11:05)
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
[2023-05-12] MEDS: ESTRADIOL TD SCH (16:25)
[2023-05-12] MEDS: ARIPiprazole 10 MG TAB PO SCH (20:54)
[2023-05-12] MEDS: MIRTAZAPINE TAB 15 MG TAB PO SCH (20:54)
[2023-05-12] MEDS: ENOXAPARIN INJ 40 MG/0.4 ML SYR SQ SCH (20:55)
[2023-05-13] MEDS: ARIPiprazole 5 MG TAB PO SCH (08:30)
[2023-05-13] MEDS: THIAMINE HCL 100 MG TAB PO SCH (08:30)
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
[2023-05-13] MEDS: ENOXAPARIN INJ 40 MG/0.4 ML SYR SQ SCH (19:54)
[2023-05-13] MEDS: ARIPiprazole 10 MG TAB PO SCH (19:54)
[2023-05-13] MEDS: MIRTAZAPINE TAB 15 MG TAB PO SCH (19:54)
[2023-05-14] MEDS: THIAMINE HCL 100 MG TAB PO SCH (10:03)
[2023-05-14] MEDS: ARIPiprazole 5 MG TAB PO SCH (10:03)
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
[2023-05-14] MEDS ORDERED: SODIUM CHLORIDE 0.9% 500 ML IV SCH (15:45)
[2023-05-14] MEDS: ARIPiprazole 10 MG TAB PO SCH (19:50)
[2023-05-14] MEDS: MIRTAZAPINE TAB 15 MG TAB PO SCH (19:50)
[2023-05-14] MEDS: ENOXAPARIN INJ 40 MG/0.4 ML SYR SQ SCH (19:50)
[2023-05-15] MEDS: ARIPiprazole 5 MG TAB PO SCH (08:26)
[2023-05-15] MEDS: THIAMINE HCL 100 MG TAB PO SCH (08:26)
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
[2023-05-15] MEDS: ARIPiprazole 10 MG TAB PO SCH (20:20)
[2023-05-15] MEDS: ENOXAPARIN INJ 40 MG/0.4 ML SYR SQ SCH (20:20)
[2023-05-15] MEDS: MIRTAZAPINE TAB 15 MG TAB PO SCH (20:20)
[2023-05-16] MEDS: ARIPiprazole 5 MG TAB PO SCH (08:09)
[2023-05-16] MEDS: THIAMINE HCL 100 MG TAB PO SCH (08:09)
[2023-05-16] MEDS: ESTRADIOL TD SCH (14:20)
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
[2023-05-16] MEDS: MIRTAZAPINE TAB 15 MG TAB PO SCH (20:11)
[2023-05-16] MEDS: ARIPiprazole 10 MG TAB PO SCH (20:12)
[2023-05-16] MEDS: ENOXAPARIN INJ 40 MG/0.4 ML SYR SQ SCH (20:12)
[2023-05-17] MEDS: THIAMINE HCL 100 MG TAB PO SCH (08:16)
[2023-05-17] MEDS: ARIPiprazole 5 MG TAB PO SCH (08:16)
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
[2023-05-17] MEDS: ENOXAPARIN INJ 40 MG/0.4 ML SYR SQ SCH (21:06)
[2023-05-17] MEDS: MIRTAZAPINE TAB 15 MG TAB PO SCH (21:06)
[2023-05-17] MEDS: ARIPiprazole 10 MG TAB PO SCH (21:06)
[2023-05-18] MEDS: ARIPiprazole 5 MG TAB PO SCH (08:19)
[2023-05-18] MEDS: THIAMINE HCL 100 MG TAB PO SCH (08:19)
[2023-05-18 09:26] LABS: Hemoglobin 14.1 g/dl (14.0-18.0); Mean Corpuscular Hemoglobin 29.7 pg (25.0-34.0); Mean Corpuscular Hgb Conc 33.6 g/dL (32.0-36.0); Mean Corpuscular Volume 88.4 fL (80.0-100.0); Mean Platelet Volume 9.6 fL (9.4-12.4); Platelet Count 197 K/uL (130-400); RDW Coefficient of Variation 13.1 % (11.5-14.5); RDW Standard Deviation 42.9 fL (36.4-46.3); Red Blood Count 4.75 M/uL (4.70-6.10); White Blood Count 7.45 K/ul (4.8-10.8)
[2023-05-18 09:43] LABS: BUN Creatinine Ratio 25.9 (10-20); Calcium 8.9 mg/dl (8.6-10.3); Creatinine Clr Calc Pharmacy 88.7 ml/min; Est GFR (African American) 108.1 ml/min; Est GFR (Non-African American) 93.3 ml/min; Magnesium 1.9 mg/dl (1.7-2.4); Phosphorus 3.1 mg/dl (2.5-4.9); Potassium 4.2 mmol/L (3.5-5.1)
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
[2023-05-18] MEDS: ENOXAPARIN INJ 40 MG/0.4 ML SYR SQ SCH (19:40)
[2023-05-18] MEDS: MIRTAZAPINE TAB 15 MG TAB PO SCH (19:41)
[2023-05-18] MEDS: ARIPiprazole 10 MG TAB PO SCH (19:42)
[2023-05-19] MEDS: THIAMINE HCL 100 MG TAB PO SCH (10:40)
[2023-05-19] MEDS: ARIPiprazole 5 MG TAB PO SCH (10:40)
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
[2023-05-19] MEDS: ARIPiprazole 10 MG TAB PO SCH (21:22)
[2023-05-19] MEDS: MIRTAZAPINE TAB 15 MG TAB PO SCH (21:22)
[2023-05-19] MEDS: ENOXAPARIN INJ 40 MG/0.4 ML SYR SQ SCH (21:22)
[2023-05-20] MEDS: THIAMINE HCL 100 MG TAB PO SCH (08:13)
[2023-05-20] MEDS: ARIPiprazole 5 MG TAB PO SCH (08:13)
[2023-05-20] MEDS: ESTRADIOL TD SCH (15:48)
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
[2023-05-20] MEDS: ENOXAPARIN INJ 40 MG/0.4 ML SYR SQ SCH (21:57)
[2023-05-20] MEDS: ARIPiprazole 10 MG TAB PO SCH (21:58)
[2023-05-20] MEDS: MIRTAZAPINE TAB 15 MG TAB PO SCH (21:58)
[2023-05-21] MEDS: THIAMINE HCL 100 MG TAB PO SCH (08:27)
[2023-05-21] MEDS: ARIPiprazole 5 MG TAB PO SCH (08:27)
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
[2023-05-21] MEDS: ARIPiprazole 10 MG TAB PO SCH (20:10)
[2023-05-21] MEDS: ENOXAPARIN INJ 40 MG/0.4 ML SYR SQ SCH (20:10)
[2023-05-21] MEDS: MIRTAZAPINE TAB 15 MG TAB PO SCH (20:10)
[2023-05-22] MEDS: ARIPiprazole 5 MG TAB PO SCH (08:35)
[2023-05-22] MEDS: THIAMINE HCL 100 MG TAB PO SCH (08:35)
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
[2023-05-22] MEDS: ENOXAPARIN INJ 40 MG/0.4 ML SYR SQ SCH (21:05)
[2023-05-22] MEDS: MIRTAZAPINE TAB 15 MG TAB PO SCH (21:05)
[2023-05-22] MEDS: ARIPiprazole 10 MG TAB PO SCH (21:05)
[2023-05-23] MEDS: THIAMINE HCL 100 MG TAB PO SCH (09:07)
[2023-05-23] MEDS: ARIPiprazole 5 MG TAB PO SCH (09:07)
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
[2023-05-23] MEDS: ARIPiprazole 10 MG TAB PO SCH (21:23)
[2023-05-23] MEDS: ENOXAPARIN INJ 40 MG/0.4 ML SYR SQ SCH (21:23)
[2023-05-23] MEDS: MIRTAZAPINE TAB 15 MG TAB PO SCH (21:23)
[2023-05-24] MEDS: ARIPiprazole 5 MG TAB PO SCH (08:51)
[2023-05-24] MEDS: THIAMINE HCL 100 MG TAB PO SCH (08:52)
[2023-05-24] MEDS: ESTRADIOL TD SCH (14:29)
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
== END 2023-05-24 14:50 | disposition home or self-care (01) | DRG 689 ==
LOC: ED 16:17 → SUATTDRO 18:42 → EDINP 18:42 → 4W 04-30 18:01

== ENCOUNTER 2023-10-03 13:48 | Inpatient (IN) ==
--- NOTE | 2023-10-03 14:25 | Emergency Department Note ---
Impression & Plan Unable to care for self, Acute UTI (urinary tract infection) ED Provider Note HISTORY OF PRESENT ILLNESS: Patient is a 63-year-old male presenting due to concern for ability to care for himself. Patient does not interact with me and refuses to answer any questions. History is obtained via EMS. Family had called the office of aging last week and office of aging had recommended that if they feel they cannot take care of the patient anymore that they should present the patient to the emergency department. They called 911 today because they do not feel the patient can care for himself anymore and they are unable to take care of him. Patient denies any complaints to me, but he is very limited in answering questions. Patient does appear very disheveled. ROS: as above PHYSICAL EXAM: Constitutional: Patient appears in no acute distress. HENT: Head: Normocephalic and atraumatic. Eyes: EOMI, PERRL Mouth/Throat: Mucous membranes moist. Neck: Trachea midline. Neck supple. Musculoskeletal: No edema, tenderness or deformity noted. Skin: Warm and dry. No rash, erythema, pallor or cyanosis Psychiatric: Appropriate mood and affect for situation. Neurological: Alert and keenly responsive. CN II-XII grossly intact, moving all extremities equally and fully. MDM: - Vitals signs stable - History obtained via EMS, given patient's refusal to answer questions. History as above. - Chronic conditions affecting care: depression; dementia; neurocognitive disorder - Differential diagnoses include, but are not limited to: dementia; failure to thrive; depression; dehydration - External medical records reviewed. Discharge summary dated 06/01/2023 was reviewed. Patient was admitted at that time for confusion and behavioral change. - Laboratory workup interpreted by myself showed normal WBC; stable electrolytes; negative alcohol; negative salicylate/acetaminophen levels - COVID/flu/RSV negative - UA showed evidence of infection. Given 500 mg PO keflex. - Patient seen in conjunction with behavioral health [facility]. Concern for the patient's competency, as he is not answering questions or participating in examination. He did go through decontamination with nursing staff, given his disheveledness. - A 302 petition was filed by case management and upheld by myself. Filled out in the setting of concern for the patient's ability to care for himself. - Referrals sent out to geriatric psychiatric facilities. However, no accepting facilities at this time. Will admit to hospitalist service, as patient does not show competency to sign out against medical advice - Hospitalist consulted for admission - Patient admitted to [facility] hospitalist service for further evaluation and management. ASSESSMENT AND PLAN: Diagnosis: unable to care for self; acute UTI Plan: admit Past Med/Surg History Problem List (Updated 10/03/23 @ 22:11 by Katia Carlos MD) Acute UTI (urinary tract infection) (Acute) Unable to care for self (Acute) Unable to care for self (Acute) COVID (Acute) Delirium Acute UTI (Acute) Dementia (Acute) Neurocognitive disorder (Acute) Psychosis Depression (Acute) H/O knee surgery Arthritis (Chronic) Family History Other Family history non-contributory Social History Smoking Status: Never smoker Tobacco Type: Cigarettes Hx Alcohol Use: No Hx Substance Use: No Preferred Language: Wolof Communication Ability: Effective Finisher 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 Required: No Beliefs That Will Affect Care: None marital status: Current Living Situation: Spouse current occupational status: employed Feels Safe at Home: Yes Assistive Devices: None Allergies Allergies Allergy/AdvReac Type Severity Reaction Status Date / Time No Known Allergies Allergy NONE Verified 04/10/23 02:41 Home Meds Home Medications Medication Instructions Recorded Confirmed mirtazapine 15 mg tablet 15 mg PO HS 02/04/23 04/28/23 Previous Rx's Medication Instructions Recorded aripiprazole 10 mg tablet 10 mg PO HS 30 days #30 tabs 05/24/23 estradiol 0.0375 mg/24 hr 0.0375 mg transdermal Q4D 30 days 05/24/23 semiweekly transdermal patch #8 ea Results & Data (ED) Vital Signs Vital Signs - 24 hr 10/03/23 13:57 10/03/23 19:45 10/03/23 19:45 Temperature 36.8 C 36.8 C Temperature Source Oral Oral Pulse Rate 87 Pulse Rate [Finger] 71 Respiratory Rate 16 20 Respiratory Effort / Characteristics Non-Labored Respiratory Depth Normal Blood Pressure 126/87 Blood Pressure [Right Arm] 108/75 Blood Pressure Mean 100 Blood Pressure Mean [Right Arm] 86 Pulse Oximetry 97 92 Oxygen Delivery Method Room Air Sepsis Recent Fever Within 48 Hours No Sepsis New/Unexplained Change in Mental Status No Sepsis Action Taken by Nursing No Action Required Laboratory Data 10/03/23 14:36 10/03/23 14:36 Lab Results 10/03/23 10/03/23 10/03/23 Range/Units 14:36 18:42 19:50 WBC 6.41 (4.8-10.8) K/ul RBC 5.45 (4.70-6.10) M/uL Hgb 15.8 (14.0-18.0) g/dl Hct 48.0 (42.0-52.0) % MCV 88.1 (80.0-100.0) fL MCH 29.0 (25.0-34.0) pg MCHC 32.9 (32.0-36.0) g/dL RDW Std Deviation 42.1 (36.4-46.3) fL RDW Coeff of Bhavesh 13.2 (11.5-14.5) % Plt Count 220 (130-400) K/uL MPV 9.5 (9.4-12.4) fL Immature Gran % (Auto) 0.3 % Neut % (Auto) 66.5 % Lymph % (Auto) 25.1 % [place] % (Auto) 6.2 % Eos % (Auto) 1.6 % Baso % (Auto) 0.3 % Neut # (Auto) 4.26 (1.40-6.50) K/uL Lymph # (Auto) 1.61 (1.20-3.40) K/uL [place] # (Auto) 0.40 (0.11-0.59) K/uL Eos # (Auto) 0.10 (0.00-0.50) K/uL Baso # (Auto) 0.02 (0.00-0.20) K/uL Immature Gran # (Auto) 0.02 (0.01-0.20) K/uL Sodium 140 (136-145) mmol/L Potassium 3.7 (3.5-5.1) mmol/L Chloride 103 (98-107) mmol/L Carbon Dioxide 33 H (21-32) mmol/L Anion Gap 4 (3-11) BUN 15 (6-23) mg/dl Creatinine 1.16 (0.6-1.4) mg/dl Est Cr Clr Drug Dosing Not Reportable Est GFR ( Amer) 76.2 ml/min Est GFR (Non-Af Amer) 65.7 ml/min BUN/Creatinine Ratio 12.9 (10-20) Glucose 124 H (70-99(Fasting)) mg/dl Calcium 9.4 (8.6-10.3) mg/dl Total Bilirubin 0.6 (0.2-1.0) mg/dl AST 19 (13-39) U/L ALT 15 (7-52) U/L Alkaline Phosphatase 42 (34-104) U/L Total Protein 7.4 (6.0-8.3) gm/dl Albumin 4.4 (3.4-5.0) gm/dl Globulin 3.0 (2.5-4.0) gm/dl Albumin/Globulin Ratio 1.5 (0.9-2) Urine Color Urine Appearance (Clear) Urine pH (4.5-7.5) Ur Specific [place] (1.000-1.030) Urine Protein (Negative) Urine Glucose (UA) (Negative) Urine Ketones (Negative) Urine Blood (Negative) Urine Nitrite (Negative) Urine Bilirubin (Negative) Urine Urobilinogen (Negative) Ur Leukocyte Esterase (Negative) Urine WBC (Auto) (0-5) /hpf Urine RBC (Auto) (0-2) /hpf U Hyaline Cast (Auto) (0-2) /lpf U Epithel Cells (Auto) (0-2) /hpf Urine Bacteria (Auto) (None Seen) Salicylates < 3.0 L (3.0-30) mg/dl Acetaminophen < 3 L (10-30) ug/ml Ethyl Alcohol mg/dL < 10.0 (<10.0) mg/dl SARS-CoV-2 (PCR) NEGATIVE (Negative) Influenza Type A (PCR) Negative (Neg) Influenza Type B (PCR) Negative (Neg) RSV (RT-PCR) Negative (Neg) 10/03/23 Range/Units 20:30 WBC (4.8-10.8) K/ul RBC (4.70-6.10) M/uL Hgb (14.0-18.0) g/dl Hct (42.0-52.0) % MCV (80.0-100.0) fL MCH (25.0-34.0) pg MCHC (32.0-36.0) g/dL RDW Std Deviation (36.4-46.3) fL RDW Coeff of Bhavesh (11.5-14.5) % Plt Count (130-400) K/uL MPV (9.4-12.4) fL Immature Gran % (Auto) % Neut % (Auto) % Lymph % (Auto) % [place] % (Auto) % Eos % (Auto) % Baso % (Auto) % Neut # (Auto) (1.40-6.50) K/uL Lymph # (Auto) (1.20-3.40) K/uL [place] # (Auto) (0.11-0.59) K/uL Eos # (Auto) (0.00-0.50) K/uL Baso # (Auto) (0.00-0.20) K/uL Immature Gran # (Auto) (0.01-0.20) K/uL Sodium (136-145) mmol/L Potassium (3.5-5.1) mmol/L Chloride (98-107) mmol/L Carbon Dioxide (21-32) mmol/L Anion Gap (3-11) BUN (6-23) mg/dl Creatinine (0.6-1.4) mg/dl Est Cr Clr Drug Dosing Est GFR ( Amer) ml/min Est GFR (Non-Af Amer) ml/min BUN/Creatinine Ratio (10-20) Glucose (70-99(Fasting)) mg/dl Calcium (8.6-10.3) mg/dl Total Bilirubin (0.2-1.0) mg/dl AST (13-39) U/L ALT (7-52) U/L Alkaline Phosphatase (34-104) U/L Total Protein (6.0-8.3) gm/dl Albumin (3.4-5.0) gm/dl Globulin (2.5-4.0) gm/dl Albumin/Globulin Ratio (0.9-2) Urine Color Yellow Urine Appearance Clear (Clear) Urine pH 6.0 (4.5-7.5) Ur Specific [place] 1.012 (1.000-1.030) Urine Protein Negative (Negative) Urine Glucose (UA) Negative (Negative) Urine Ketones Negative (Negative) Urine Blood Negative (Negative) Urine Nitrite Positive A (Negative) Urine Bilirubin Negative (Negative) Urine Urobilinogen Negative (Negative) Ur Leukocyte Esterase 2+ H (Negative) Urine WBC (Auto) 6-10 H (0-5) /hpf Urine RBC (Auto) 0-2 (0-2) /hpf U Hyaline Cast (Auto) 0-2 (0-2) /lpf U Epithel Cells (Auto) 0-2 (0-2) /hpf Urine Bacteria (Auto) 4+ H (None Seen) Salicylates (3.0-30) mg/dl Acetaminophen (10-30) ug/ml Ethyl Alcohol mg/dL (<10.0) mg/dl SARS-CoV-2 (PCR) (Negative) Influenza Type A (PCR) (Neg) Influenza Type B (PCR) (Neg) RSV (RT-PCR) (Neg) Administered Medications Discontinued Medications Lorazepam (Lorazepam 1 Mg Tab) 2 mg PO NOW STA Stop: 10/03/23 16:57 Last Admin: 10/03/23 17:00 Dose: 2 mg Documented By: KT Discharge Plan Visit Data Chief Complaint: Illness Stated Complaint: unable to care for himself ED Provider: Katia Carlos Discharge Problem: Unable to care for self, Acute UTI (urinary tract infection) Forms Stand Alone Forms: My [facility] Prescriptions Prescriptions: No Action mirtazapine 15 mg tablet 15 mg PO HS estradiol 0.0375 mg/24 hr Patch Semiweekly 0.0375 mg transdermal Q4D 30 Days Qty: 8 1RF aripiprazole 10 mg tablet 10 mg PO HS 30 Days Qty: 30 0RF Referrals Referrals: Reid Bolden PA-C [Primary Care Provider] -
[2023-10-03 14:53] LABS: Basophils # (auto) 0.02 K/uL (0.00-0.20); Basophils % (auto) 0.3 %; Eosinophils % (auto) 1.6 %; Hemoglobin 15.8 g/dl (14.0-18.0); Immature Granulocytes # (auto) 0.02 K/uL (0.01-0.20); Immature Granulocytes % (auto) 0.3 %; Lymphocytes # (auto) 1.61 K/uL (1.20-3.40); Lymphocytes % (auto) 25.1 %; Mean Corpuscular Hgb Conc 32.9 g/dL (32.0-36.0); Mean Corpuscular Volume 88.1 fL (80.0-100.0); Mean Platelet Volume 9.5 fL (9.4-12.4); Monocytes % (auto) 6.2 %; Neutrophils # (auto) 4.26 K/uL (1.40-6.50); Neutrophils % (auto) 66.5 %; Platelet Count 220 K/uL (130-400); RDW Coefficient of Variation 13.2 % (11.5-14.5); RDW Standard Deviation 42.1 fL (36.4-46.3); Red Blood Count 5.45 M/uL (4.70-6.10); White Blood Count 6.41 K/ul (4.8-10.8)
[2023-10-03 15:06] LABS: Alanine Aminotransferase 15 U/L (7-52); Albumin Globulin Ratio 1.5 (0.9-2); Albumin Level 4.4 gm/dl (3.4-5.0); Alkaline Phosphatase 42 U/L (34-104); Anion Gap 4 (3-11); Aspartate Aminotransferase 19 U/L (13-39); BUN Creatinine Ratio 12.9 (10-20); Bilirubin,Total 0.6 mg/dl (0.2-1.0); Blood Urea Nitrogen 15 mg/dl (6-23); Calcium 9.4 mg/dl (8.6-10.3); Carbon Dioxide 33 mmol/L (21-32); Chloride 103 mmol/L (98-107); Est GFR (African American) 76.2 ml/min; Est GFR (Non-African American) 65.7 ml/min; Glucose 124 mg/dl (70-99(Fasting)); Potassium 3.7 mmol/L (3.5-5.1); Sodium 140 mmol/L (136-145); Total Protein 7.4 gm/dl (6.0-8.3)
[2023-10-03] MEDS: LORazepam 1 MG TAB PO STA (17:00)
[2023-10-03 20:28] LABS: Influenza A virus by PCR Negative (Neg); Influenza B virus by PCR Negative (Neg); RSV by PCR Negative (Neg); SARS CoV2 RNA(COVID-19) Ceph NEGATIVE (Negative)
[2023-10-03 20:51] LABS: Acetaminophen < 3 ug/ml (10-30); Salicylate < 3.0 mg/dl (3.0-30)
[2023-10-03 20:56] LABS: Appearance Urine Clear (Clear); Bacteria Urine Automated 4+ (None Seen); Bilirubin Urine Negative (Negative); Blood Urine Negative (Negative); Cast Urine Automated 0-2 /lpf (0-2); Color Urine Yellow; Epithelial Cell Urine Auto 0-2 /hpf (0-2); Glucose Urine UA Negative (Negative); Ketones Urine Negative (Negative); Leukocyte Esterase Urine 2+ (Negative); Nitrite Urine Positive (Negative); Protein Urine Negative (Negative); RBC Urine Automated 0-2 /hpf (0-2); Specific Gravity Urine 1.012 (1.000-1.030); Urobilinogen Urine Negative (Negative)
[2023-10-03] MEDS: cephALEXin 250 MG CAP PO ONE (22:18)
[2023-10-03 22:38] LABS: Amphetamines+Metham, Urine Neg (Neg); Barbiturates, Urine Neg (Neg); Benzodiazepine, Urine Neg (Neg); Cocaine, Urine Neg (Neg); MDMA (Ecstacy), Urine Neg (Neg); Marijuana, Urine Neg (Neg); Methadone, Urine Neg (Neg); Opiate, Urine Neg (Neg); Phencyclidine, Urine Neg (Neg)
--- NOTE | 2023-10-04 00:11 | History & Physical Report ---
Date of Service October 03, 2023 Assessment & Plan (1) Unable to care for self: Plan: 63-year-old male with past medical history significant for dementia, history of heavy alcohol abuse, history of depression with psychotic features and catatonia, history of polysubstance abuse ,history of cognitive decline since 2019 was sent in by office of aging and also his family as patient is unable to take care of himself and family also not able to take care of him. Patient also found to have UTI. Patient was admitted in April 28, 2023 with the same unable to care for self and COVID and UTI and at the time he was discharged back home On jun 01 2023. Looks like previously case management tried to place him but could not find facility to accept him. patient currently alert and awake. Can tell his name. Can tell that he is in the hospital. Tells this is fifth month and year 24. Does not know why he is in the hospital. States he lives with his and his family. States ambulates without any support. Denies any headache. Denies dizziness. States vision is okay. Denies runny nose or sore throat or cough. Denies any fevers. No chest pain or shortness of breath. No nausea. No abdominal pain. Normal bowel and bladder movements. Cu rrently resting comfortably and hemodynamically stable. Patient seem to be dishevelled when he came to the ER. Unable to care for self family not able to take care of him plan for placement office of aging involved case management to help with placement UTI seems declined IV line in the ER p.o. cefuroxime follow cultures dementia depression with psychotic features and catatonia not sure what medication is currently taking we will place him on medications he was discharged in May consult psych to help with medications DVT prophylaxis heparin subcu disposition medical floor full code History of Present Illness Chief Complaint: unable to take care of himself Primary Care Provider: Reid Bolden PA-C 63-year-old male with past medical history significant for dementia, history of heavy alcohol abuse, history of depression with psychotic features and catatonia, history of polysubstance abuse ,history of cognitive decline since 2019 was sent in by office of aging and also his family as patient is unable to take care of himself and family also not able to take care of him. Patient also found to have UTI. Patient was admitted in April 28, 2023 with the same unable to care for self and COVID and UTI and at the time he was discharged back home On jun 01 2023. Looks like previously case management tried to place him but could not find facility to accept him. patient currently alert and awake. Can tell his name. Can tell that he is in the hospital. Tells this is fifth month and year 24. Does not know why he is in the hospital. States he lives with his and his family. States ambulates without any support. Denies any headache. Denies dizziness. States vision is okay. Denies runny nose or sore throat or cough. Denies any fevers. No chest pain or shortness of breath. No nausea. No abdominal pain. Normal bowel and bladder movements. Currently resting comfortably and hemodynamically stable. Patient seem to be dishevelled when he came to the ER. past medical history As mentioned above.. Past surgical history. Knee surgery. Social history. Patient states he quit smoking 10 years ago. States he quit alcohol 5 years ago. As per [facility] history of chronic alcohol abuse used to drink drink 2-3 cases of 30 pack beer since and stopped in early 2018. History of marijuana abuse as per epic. family history. Father had dementia. Allergies Allergy/AdvReac Type Severity Reaction Status Date / Time No Known Allergies Allergy NONE Verified 04/10/23 02:41 Home Medications Medication Instructions Recorded Confirmed Type mirtazapine 15 mg tablet 15 mg PO HS 02/04/23 04/28/23 History aripiprazole 10 mg tablet 10 mg PO HS 30 days #30 tabs 05/24/23 Rx estradiol 0.0375 mg/24 hr 0.0375 mg transdermal Q4D 30 days 05/24/23 Rx semiweekly transdermal patch #8 ea Past Med/Surg History Problem List (Updated 10/04/23 @ 00:05 by Librado Crooks) Acute UTI (urinary tract infection) (Acute) Unable to care for self (Acute) Unable to care for self (Acute) COVID (Acute) Delirium Acute UTI (Acute) Dementia (Acute) Neurocognitive disorder (Acute) Psychosis Depression (Acute) H/O knee surgery Arthritis (Chronic) Family History Other Family history non-contributory Social History Smoking Status: Never smoker Tobacco Type: Cigarettes Hx Alcohol Use: No Hx Substance Use: No Preferred Language: [place]ralt[place] Communication Ability: Effective Project Manager Process Development Required: No Beliefs That Will Affect Care: None marital status: Current Living Situation: Spouse current occupational status: employed Feels Safe at Home: Yes Assistive Devices: None Review of Systems Review of Systems: Other per hpi. has history of dementia Physical Exam Physical Exam: General- Not in distress. Head- atraumatic Eyes- EOMI Neck- supple. Lungs- clear to auscultation no wheezing or crackles Heart- regular rhythm; no murmur, no gallop. Abdomen- normal bowel sounds, soft, nontender, no distension. Extremities- no pretibial edema, no erythema seen. Neuro- alert, oriented x 3; EOMI; no facial palsy; no dysarthria; moves extremities. Results & Data Results & Data Vital Signs (Past 12 Hours) Vital Signs Temp Pulse Pulse Resp BP BP Pulse Ox 10/03/23 19:45 36.8 C 10/03/23 19:45 71 20 108/75 92 10/03/23 13:57 36.8 C 87 16 126/87 97 O2 Del Method 10/03/23 19:45 10/03/23 19:45 Room Air 10/03/23 13:57 Diagnostic Findings Laboratory Results WBC 6.41 K/ul (4.8-10.8) 10/03/23 14:36 RBC 5.45 M/uL (4.70-6.10) 10/03/23 14:36 Hgb 15.8 g/dl (14.0-18.0) 10/03/23 14:36 Hct 48.0 % (42.0-52.0) 10/03/23 14:36 MCV 88.1 fL (80.0-100.0) 10/03/23 14:36 MCH 29.0 pg (25.0-34.0) 10/03/23 14:36 MCHC 32.9 g/dL (32.0-36.0) 10/03/23 14:36 RDW Std Deviation 42.1 fL (36.4-46.3) 10/03/23 14:36 RDW Coeff of Bhavesh 13.2 % (11.5-14.5) 10/03/23 14:36 Plt Count 220 K/uL (130-400) 10/03/23 14:36 MPV 9.5 fL (9.4-12.4) 10/03/23 14:36 Immature Gran % (Auto) 0.3 % 10/03/23 14:36 Neut % (Auto) 66.5 % 10/03/23 14:36 Lymph % (Auto) 25.1 % 10/03/23 14:36 Rogers % (Auto) 6.2 % 10/03/23 14:36 Eos % (Auto) 1.6 % 10/03/23 14:36 Baso % (Auto) 0.3 % 10/03/23 14:36 Neut # (Auto) 4.26 K/uL (1.40-6.50) 10/03/23 14:36 Lymph # (Auto) 1.61 K/uL (1.20-3.40) 10/03/23 14:36 Rogers # (Auto) 0.40 K/uL (0.11-0.59) 10/03/23 14:36 Eos # (Auto) 0.10 K/uL (0.00-0.50) 10/03/23 14:36 Baso # (Auto) 0.02 K/uL (0.00-0.20) 10/03/23 14:36 Immature Gran # (Auto) 0.02 K/uL (0.01-0.20) 10/03/23 14:36 Sodium 140 mmol/L (136-145) 10/03/23 14:36 Potassium 3.7 mmol/L (3.5-5.1) 10/03/23 14:36 Chloride 103 mmol/L (98-107) 10/03/23 14:36 Carbon Dioxide 33 mmol/L (21-32) H 10/03/23 14:36 Anion Gap 4 (3-11) 10/03/23 14:36 BUN 15 mg/dl (6-23) 10/03/23 14:36 Creatinine 1.16 mg/dl (0.6-1.4) 10/03/23 14:36 Est Cr Clr Drug Dosing Not Reportable 10/03/23 14:36 Est GFR ( Amer) 76.2 ml/min 10/03/23 14:36 Est GFR (Non-Af Amer) 65.7 ml/min 10/03/23 14:36 BUN/Creatinine Ratio 12.9 (10-20) 10/03/23 14:36 Glucose 124 mg/dl (70-99(Fasting)) H 10/03/23 14:36 Calcium 9.4 mg/dl (8.6-10.3) 10/03/23 14:36 Total Bilirubin 0.6 mg/dl (0.2-1.0) 10/03/23 14:36 AST 19 U/L (13-39) 10/03/23 14:36 ALT 15 U/L (7-52) 10/03/23 14:36 Alkaline Phosphatase 42 U/L (34-104) 10/03/23 14:36 Total Protein 7.4 gm/dl (6.0-8.3) 10/03/23 14:36 Albumin 4.4 gm/dl (3.4-5.0) 10/03/23 14:36 Globulin 3.0 gm/dl (2.5-4.0) 10/03/23 14:36 Albumin/Globulin Ratio 1.5 (0.9-2) 10/03/23 14:36 Urine Color Yellow 10/03/23 20:30 Urine Appearance Clear (Clear) 10/03/23 20:30 Urine pH 6.0 (4.5-7.5) 10/03/23 20:30 Ur Specific [place] 1.012 (1.000-1.030) 10/03/23 20:30 Urine Protein Negative (Negative) 10/03/23 20:30 Urine Glucose (UA) Negative (Negative) 10/03/23 20:30 Urine Ketones Negative (Negative) 10/03/23 20:30 Urine Blood Negative (Negative) 10/03/23 20:30 Urine Nitrite Positive (Negative) A 10/03/23 20:30 Urine Bilirubin Negative (Negative) 10/03/23 20:30 Urine Urobilinogen Negative (Negative) 10/03/23 20:30 Ur Leukocyte Esterase 2+ (Negative) H 10/03/23 20:30 Urine WBC (Auto) 6-10 /hpf (0-5) H 10/03/23 20:30 Urine RBC (Auto) 0-2 /hpf (0-2) 10/03/23 20:30 U Hyaline Cast (Auto) 0-2 /lpf (0-2) 10/03/23 20:30 U Epithel Cells (Auto) 0-2 /hpf (0-2) 10/03/23 20:30 Urine Bacteria (Auto) 4+ (None Seen) H 10/03/23 20:30 Salicylates < 3.0 mg/dl (3.0-30) L 10/03/23 19:50 Urine Opiates Screen Neg (Neg) 10/03/23 20:30 Ur Methadone, Qual Neg (Neg) 10/03/23 20:30 Acetaminophen < 3 ug/ml (10-30) L 10/03/23 19:50 Urine Barbiturates Neg (Neg) 10/03/23 20:30 Ur Phencyclidine (PCP) Neg (Neg) 10/03/23 20:30 U Amphetamin/Meth Scrn Neg (Neg) 10/03/23 20:30 MDMA (Ecstasy) Screen Neg (Neg) 10/03/23 20:30 U Benzodiazepines Scrn Neg (Neg) 10/03/23 20:30 Ur Cocaine Metabolite Neg (Neg) 10/03/23 20:30 U Marijuana (THC) Screen Neg (Neg) 10/03/23 20:30 Ethyl Alcohol mg/dL < 10.0 mg/dl (<10.0) 10/03/23 19:50 SARS-CoV-2 (PCR) NEGATIVE (Negative) 10/03/23 18:42 Influenza Type A (PCR) Negative (Neg) 10/03/23 18:42 Influenza Type B (PCR) Negative (Neg) 10/03/23 18:42 RSV (RT-PCR) Negative (Neg) 10/03/23 18:42 Code Status & VTE Plan VTE Prophylaxis Plan VTE Prophylaxis will be ordered: Yes
[2023-10-04] MEDS ORDERED: LORazepam 2 MG/1 ML VIAL IM PRN (02:48)
[2023-10-04] MEDS ORDERED: POLYETHYLENE (MIRALAX) 17 GM PACK PO PRN (02:48)
[2023-10-04] MEDS ORDERED: LORazepam 0.5 MG in SYRINGE 0.25 ML IM PRN (03:23)
[2023-10-04 07:05] LABS: Basophils # (auto) 0.02 K/uL (0.00-0.20); Basophils % (auto) 0.3 %; Eosinophils # (auto) 0.15 K/uL (0.00-0.50); Eosinophils % (auto) 2.2 %; Hematocrit (blood only) 42.2 % (42.0-52.0); Hemoglobin 14.2 g/dl (14.0-18.0); Immature Granulocytes # (auto) 0.03 K/uL (0.01-0.20); Immature Granulocytes % (auto) 0.4 %; Lymphocytes # (auto) 2.22 K/uL (1.20-3.40); Mean Corpuscular Hemoglobin 29.4 pg (25.0-34.0); Mean Corpuscular Hgb Conc 33.6 g/dL (32.0-36.0); Mean Corpuscular Volume 87.4 fL (80.0-100.0); Mean Platelet Volume 9.6 fL (9.4-12.4); Monocytes # (auto) 0.48 K/uL (0.11-0.59); Monocytes % (auto) 6.9 %; Neutrophils # (auto) 4.03 K/uL (1.40-6.50); Neutrophils % (auto) 58.2 %; Platelet Count 193 K/uL (130-400); RDW Coefficient of Variation 13.1 % (11.5-14.5); RDW Standard Deviation 41.9 fL (36.4-46.3); Red Blood Count 4.83 M/uL (4.70-6.10); White Blood Count 6.93 K/ul (4.8-10.8)
[2023-10-04 07:20] LABS: Anion Gap 2 (3-11); BUN Creatinine Ratio 11.8 (10-20); Blood Urea Nitrogen 12 mg/dl (6-23); Calcium 8.9 mg/dl (8.6-10.3); Carbon Dioxide 33 mmol/L (21-32); Chloride 105 mmol/L (98-107); Est GFR (Non-African American) 76.8 ml/min; Glucose 97 mg/dl (70-99(Fasting)); Sodium 140 mmol/L (136-145)
[2023-10-04] MEDS: ARIPiprazole 5 MG TAB PO SCH (10:03)
[2023-10-04] MEDS: HEPARIN SOD 5,000 UNIT/0.5 ML VIAL SQ SCH (10:03)
[2023-10-04] MEDS: cefUROXime axetil 250 MG TABLET PO SCH (10:03)
[2023-10-04] MEDS: THIAMINE HCL 100 MG TAB PO SCH (10:03)
[2023-10-04] MEDS: cefTRIAXone SODIUM 2000MG/50ML D5W IV ONE (11:39)
[2023-10-04] MEDS: cefTRIAXone SODIUM 2,000 MG/50 ML BAG IV SCH (11:39)
--- NOTE | 2023-10-04 15:27 | Psychiatric Consultation ---
Date of Consultation October 04, 2023 Impression / Recommendations Impression 63 year old male with past psychiatric history of depression who was brought to the hospital by his family after they realized that they could no longer care for him. (1) Neurocognitive disorder: Plan Continue current medications. The patient does not meet criteria for inpatient psychiatric hospitalization. He does not present an imminent danger to self or others due to acute psychiatric illness. Though he may not be able to care for himself outside the hospital, it is not due to an acute psychiatric condition but rather than neurodegenerative disorder. When medically stable he can be discharged to a longterm or whatever living situation is deemed appropriate. Psych History Chief Complaint "I was on Abilify". History of Present Illness Patient is a 63 year old male with past psychiatric history of depression. He also has an unspecified neurocognitive disorder and dementia. He was brought in to the hospital after his family decided that they can no longer care for him and were told that he should be brought into the hospital by the office of aging. Psychiatry was consulted to assess his medications. The patient wasn't particularly willing to participate in the interview but he did state that he used to take Abilify. He said that he has been taking this medication every night as prescribed. Allergies Allergy/AdvReac Type Severity Reaction Status Date / Time No Known Allergies Allergy NONE Verified 04/10/23 02:41 Home Medications Medication Instructions Recorded Confirmed Type aripiprazole 10 mg tablet 10 mg PO HS 30 days #30 tabs 05/24/23 Rx estradiol 0.0375 mg/24 hr 0.0375 mg transdermal Q4D 30 days 05/24/23 Rx semiweekly transdermal patch #8 ea Patient History Family History Other Family history non-contributory Social History Smoking Status: Current some day smoker Tobacco Type: Cigarettes Hx Alcohol Use: Yes Hx Substance Use: No Preferred Language: [place] Communication Ability: Effective Computer Graphic Artist Required: No Beliefs That Will Affect Care: None marital status: Current Living Situation: Spouse and Parent current occupational status: employed Other Information That Helps Us Care for You: No Feels Safe at Home: Yes Assistive Devices: None Physical Exam Mental Examination: Appearance: Unkempt Eye Contact: Maintains Eye Contact Motor Behavior: Unremarkable Speech: Normal Mood: Calm Affect: Blunted Insight: Poor Judgement: Poor Psychiatric: Orientation: alert, oriented to person and oriented to place Apperance: + disheveled Eye Contact: good eye contact Motor Behavior: no abnormal motor movements Speech: normal rate/rhythm/volume of speech Affect: + labile affect Mood: + irritable mood Thought Process: + concrete thought process Thought Content: + cognitive distortions Suicidal Thoughts: denies suicidal thoughts and denies suicidal plan Homicidal Thoughts: denies homicidal thoughts Hallucinations: no auditory hallucinations Cognition: + recent memory not intact, + remote memory not intact, + attention not intact and + language not intact Estimated Intelligence: + below average estimated intelligence Insight: + poor insight and + impaired insight Judgment: + poor judgement Vital Signs (Past 24 Hours): Last Vital Signs Temp 36.8 C 10/03/23 19:45 Pulse 61 10/04/23 08:39 Resp 16 10/04/23 08:39 BP 119/77 10/04/23 08:39 Pulse Ox 96 10/04/23 08:39 O2 Del Method Room Air 10/04/23 08:39 Results & Data (PSY) Medications Administered Aripiprazole (Aripiprazole 5 Mg Tab) 5 mg PO QAM [facility] Stop: 11/03/23 08:59 Last Admin: 10/04/23 10:03 Dose: 5 mg Documented By: BALA Heparin Sodium (Porcine) (Heparin Sod 5,000 Unit/0.5 Ml Vial) 5,000 units SQ Q12 MICHEL Stop: 11/03/23 08:59 Last Admin: 10/04/23 10:03 Dose: 5,000 units Documented By: BALA Ceftriaxone Sodium (Rocephin) 2,000 mg in 50 mls @ 100 mls/hr IV Q24H MICHEL Stop: 10/09/23 11:59 Last Admin: 10/04/23 11:39 Dose: Not Given Documented By: BALA Thiamine HCl (Thiamine Hcl 100 Mg Tab) 100 mg PO QAM MICHEL Stop: 11/03/23 08:59 Last Admin: 10/04/23 10:03 Dose: 100 mg Documented By: BAL[place] [address] Inpt Consult Level 1 Patient Type New Medical Decision Making Moderate Complexity Diagnoses Neurocognitive disorder R41.9
--- NOTE | 2023-10-04 17:53 | Hospitalist Progress Note ---
Date of Service October 04, 2023 Assessment & Plan (1) Unable to care for self: Plan: Mr. Ragland is a 63-year-old male with past medical history significant for dementia, history of heavy alcohol abuse, history of depression with psychotic features and catatonia, history of polysubstance abuse ,history of cognitive decline since 2019 was sent in by office of aging and also his family as patient is unable to take care of himself and family also not able to take care of him. Per admitting hospitalist "Patient also found to have UTI. Patient was admitted in April 28, 2023 with the same unable to care for self and COVID and UTI and at the time he was discharged back home On jun 01 2023. Looks like previously case management tried to place him but could not find facility to accept him. patient currently alert and awake. Can tell his name. Can tell that he is in the hospital. Tells this is fifth month and year 24. Does not know why he is in the hospital. States he lives with his and his family. States ambulates without any support. Denies any headache. Denies dizziness. States vision is okay. Denies runny nose or sore throat or cough. Denies any fevers. No chest pain or shortness of breath. No nausea. No abdominal pain. Normal bowel and bladder movements. Currently resting comfortably and hemodynamically stable." #Neurocognitive disorder #Unable to care for self #history of depression Office of aging involved, complex social situation Case management to help with placement Psych consulted continue mirtazipine 15 qhs, abiligy 5/10mg delirium precautions # acute cystitis POA initially declined IV, but then agreeable when subject broached once more culture GNB, start IV ctx follow cultures DVT prophylaxis heparin subcu disposition medical floor full code Admission and Anticipated Discharge Date Admission Date: October 03, 2023 Subjective Patient evaluated in ED Patient minimally conversational states that he isn't in any pain reports some burning when he urinates states he doesn't know his medications; mentions he lives with his . Unsure why he is in the hospital Physical Exam Constitutional: disheveled, unkempt follows commands, minimally conversational Cardiovascular: RRR, no murmur, no edema Gastrointestinal (Abdomen): normal bowel sounds, soft, nontender, no hepatosplenomegaly Results & Data Results & Data Vital Signs (Past 12 Hours) Vital Signs Pulse Resp BP Pulse Ox O2 Del Method 10/04/23 08:39 61 16 119/77 96 Room Air Laboratory Results Short CBC 10/04/23 Range/Units 06:43 WBC 6.93 (4.8-10.8) K/ul Hgb 14.2 (14.0-18.0) g/dl Hct 42.2 (42.0-52.0) % Plt Count 193 (130-400) K/uL BMP 10/04/23 06:43 Sodium 140 Potassium 4.0 Chloride 105 Carbon Dioxide 33 H BUN 12 Creatinine 1.02 Glucose 97 Calcium 8.9 Urine 10/03/23 Range/Units 20:30 Urine Color Yellow Urine Appearance Clear (Clear) Urine pH 6.0 (4.5-7.5) Ur Specific [place] 1.012 (1.000-1.030) Urine Protein Negative (Negative) Urine Glucose (UA) Negative (Negative) Medications Administered Home Medications Medication Instructions Recorded Confirmed Last Taken aripiprazole 10 mg tablet 10 mg PO HS 30 days #30 tabs 05/24/23 Unknown estradiol 0.0375 mg/24 hr 0.0375 mg transdermal Q4D 30 days 05/24/23 Unknown semiweekly transdermal patch #8 ea Active Medications Generic Name Dose Route Start Last Admin Trade Name Lisa PRN Reason Stop Dose Admin Aripiprazole 5 mg 10/04/23 09:00 10/04/23 10:03 Aripiprazole 5 Mg Tab PO 11/03/23 08:59 5 mg QAM MICHEL Administration Heparin Sodium (Porcine) 5,000 units 10/04/23 09:00 10/04/23 10:03 Heparin Sod 5,000 Unit/0.5 Ml Vial SQ 11/03/23 08:59 5,000 units Q12 MICHEL Administration Ceftriaxone Sodium 2,000 mg in 50 mls @ 100 mls/hr 10/04/23 12:00 10/04/23 11:39 Rocephin IV 10/09/23 11:59 Not Given Q24H MICHEL Thiamine HCl 100 mg 10/04/23 09:00 10/04/23 10:03 Thiamine Hcl 100 Mg Tab PO 11/03/23 08:59 100 mg QAM MICHEL Administration
[2023-10-04] MEDS: ARIPIprazole SOLN 10 MG/10 ML UDP PO SCH (22:17)
[2023-10-04] MEDS: ARIPiprazole 10 MG TAB PO SCH (22:18)
[2023-10-04] MEDS: MIRTAZAPINE TAB 15 MG TAB PO SCH (22:18)
--- OUTSIDE RECORDS SUMMARY | 2023-10-04 23:23 | External Medical Summary | Summary of Care ---
Author Name Unknown Organization [facility] Address [address] [place] [address] Phone [phone] Care Team Providers Care Enrichment Director Name Role Phone Reid Bolden PA-C Primary Care Provider + Reason for Visit * Reason Onset Date Comments Advice 05/17/2023 Encounter Details Date Type Department Care Team ([facility] st Contact Info) Description 05/17/2023 Telephone Neurology, [place] [address] [place] [address] Services, Scheduling [address] [place] [address] Advice Allergies No known active allergiesdocumented as of this encounter (statuses as of 05/17/2023) Medications Medication Sig Dispensed Refills Start Date End Date Status Incontinence Brief Large Use as needed, change once soiled 18 Each 11/20/2021 Active Donepezil HCl 10 MG Oral Tablet (Aricept) Take 1 Tablet by mouth daily with breakfast. Start this dose after finishing 5 mg tablets. 90 Tablet 3 11/09/2022 Active documented as of this encounter (statuses as of 05/17/2023) Active Problems No known active problems documented as of this encounter (statuses as of 05/17/2023) Social History Tobacco Use Types Packs/Day Years [...] encounter Miscellaneous Notes * Telephone Encounter - Lora Spear LPN - 05/17/2023 2:03 PM EST Call to patient's no answer , no voicemail. * Telephone Encounter - Cassandra Mooney OSA - 05/17/2023 10:35 AM EST Pt calling to see what Dr. Christensen would like to do. The pt is in the hospital and has been for a while. She does not think that he will be coming home and was unsure of how Dr. Christensen would like to proceed with his care Plz contact pt and advise [phone] Thank you documented in this encounter Plan of Treatment [...] filedocumented as of this encounter Care Teams Enrichment Director Relationship Specialty Start Date End Date Reid Bolden PA-C [address] [address] [place] [address] PCP - General Physician [employer] Teammate 08/17/20 documented as of this encounter
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
--- OUTSIDE RECORDS SUMMARY | 2023-10-04 23:23 | External Medical Summary | Summary of Care ---
Author Name Unknown Organization [facility] Address [address] [place] [address] Phone [phone] Care Team Providers Care Railroad Brake Repairer Name Role Phone Reid Bolden PA-C Primary Care Provider + Reason for Visit * Reason Onset Date Comments Advice 05/17/2023 Encounter Details Date Type Department Care Team ([facility] st Contact Info) Description 05/17/2023 Telephone Neurology, [place] [address] [place] [address] Services, Scheduling [address] [place] [address] Advice Allergies No known active allergiesdocumented as of this encounter (statuses as of 05/21/2023) Medications Medication Sig Dispensed Refills Start Date End Date Status Incontinence Brief Large Use as needed, change once soiled 18 Each 11/20/2021 Active Donepezil HCl 10 MG Oral Tablet (Aricept) Take 1 Tablet by mouth daily with breakfast. Start this dose after finishing 5 mg tablets. 90 Tablet 3 11/09/2022 Active documented as of this encounter (statuses as of 05/21/2023) Active Problems No known active problems documented as of this encounter (statuses as of 05/21/2023) Social History Tobacco Use Types Packs/Day Years [...] encounter Miscellaneous Notes * Telephone Encounter - Amanda Bartlett OSA - 05/21/2023 2:55 PM EST Attempted to contact Agatha at listed [phone] number. Phone rang to message that call could notbe connected and listed as an error. Attempted to call the [phone] number and the call went straight to an unidentifiable voicemail. Left a message to call us back When Agatha returns call please get more details on what she is needing Dr Christensen to know/do. * Telephone Encounter - Lora Spear LPN [...] his care Plz contact pt and advise [phone] Thank you documented in this encounter Plan [...] filedocumented as of this encounter Care Teams Railroad Brake Repairer Relationship Specialty Start Date End Date Reid Bolden PA-C [address] [address] [place] [address] PCP - General Physician Livestock Producer 08/17/20 documented as of this encounter
--- OUTSIDE RECORDS SUMMARY | 2023-10-04 23:23 | External Medical Summary | Summary of Care ---
Author Name Unknown Organization [facility] Address [address] [place] [address] Phone [phone] Care Team Providers Care Manager Scientific Name Role Phone Reid Bolden PA-C Primary Care Provider + Reason for Visit * Reason Comments Follow Up Encounter Details Date Type Department Care Team (Late st Contact Info) Description 02/28/2023 4:00 PM EDT Telemedicine Psychiatry, [place] [address] [place], [place] [id number] Neil Galindo MD [address] [place], [place] [id number] Dementia with behavioral disturbance (HCC)*; Tardive dyskinesia; Delirium due to general medical condition Allergies No known active allergiesdocumented as of this encounter (statuses as of 05/03/2023) Medications Medication Sig Dispensed Refills Start Date [...] as of this encounter (statuses as of 05/03/2023) Active Problems No known active problems documented as of this encounter (statuses as of 05/03/2023) Social History Tobacco Use Types Packs/Day Years [...] Progress Notes * Neil Galindo MD - 05/03/2023 1:50 PM EST ADDENDUM 05/03/23 PSYCHIATRY DISCHARGE/TRANSFER SUMMARY 1. Summary of Services provided: Medication Management 2. Outcomes and referrals: - psychotropic medications discontinued - plan was for patient to continue care with cognitive neurology - patient did not activate [employer] ([employer]) and therefore unable to continue telemedicine appointments with [facility] 3. Relevant psychosocial status: see progress notes 4. Medications upon discharge: Donepezil HCl 10 MG Oral Tablet (Aricept) Incontinence Brief Large 5. Diagnoses upon Discharge: F03.918 Dementia with behavioral disturbance (HCC) (primary encounter diagnosis) G24.01 Tardive dyskinesia F05 Delirium due to general medical condition 6. Medical History: Past Medical History: Diagnosis Date Chronic alcohol abuse Draink 2-3 cases of 30-pack beers since . stopped in early 2018 Confusion Marijuana abuse MDD (major depressive disorder) Tobacco abuse 7. Additional Information: Psychotropic History None Plan of care at time of discharge including referrals: Use crisis plan as needed Take medications and treatments as prescribed. Keep all scheduled medical appointments. Can consult [facility] psychiatry in the future as clinically indicated Patient and/or family has access to this document through [employer] ([employer]) * Neil Galindo MD - 02/28/2023 4:06 PM EDT PSYCHIATRY RETURN VISIT DIVISION [place] [facility] [address] Name: Samuel Ragland : 1960 Date and Time Patient was Seen: 02/28/2023 at 4:06 PM Patient location: HOME. I was not in a hospital or clinic location. After connecting through televideo, patient was verified with two unique identifiers. 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 court worker Shaq unable to be at appointment [...] seen accompanied by his Agatha and case mgr Shaq aMyo. Samuel was asked how is doing today. [...] in any way. 09/13/22 - Agatha and BCM Shaq present for the encounter today. Pt missed [...] is his Agatha and Shaq BENITES through [employer]. Hx obtained from all present parties for the encounter. The patient reports he is eating better. His self-reported weight is currently 150#. Pt has not yet gotten his EKG ordered by Dr. Christensen. Agatha says she forgot about this. Since the last appointment, he went to the hospital ([facility] -- not in the [facility] system) for stool retention and stool incontinence. [...] depression admitted to the psych unit at [facility] in the spring. He was failing in [...] follows with cognitive neurology Dr. Christensen at [facility] as well. Differential for diagnosis is [...] - Will collaborate in mgmt. Psychotherapy (CPT 33271) None today, pt is too cognitively impaired [...] of Care: Yes, provider is outside of [facility], will obtain LEA from patient and collaborate [...] Agatha was given contact information for the [facility] and we discussed the instances in which she should call. Neil Galindo MD Psychiatrist [facility] [phone] 02/28/2023 documented in this encounter Plan of [...] elsewhere documented in this encounter Care Teams Manager Scientific Relationship Specialty Start Date End Date Reid Bolden PA-C [address] [address] [place] [address] PCP - General Physician Signs And Displays Salesperson 08/17/20 documented as of this encounter
--- OUTSIDE RECORDS SUMMARY | 2023-10-04 23:23 | External Medical Summary | Summary of Care ---
Author Name Unknown Organization [facility] Address [address] [place] [address] Phone [phone] Care Team Providers Care Apprentice/Lineman Name Role Phone Reid Bolden PA-C Primary Care Provider + Reason for Visit * Reason Onset Date Comments Advice 05/17/2023 Encounter Details Date Type Department Care Team ([facility] st Contact Info) Description 05/17/2023 Telephone Neurology, [place] [address] [place] [address] Services, Scheduling [address] [place] [address] Advice Allergies No known active allergiesdocumented as [...] encounter Miscellaneous Notes * Telephone Encounter - Cassandra Mooney OSA [...] his care Plz contact pt and advise [phone] Thank you documented in this encounter Plan [...] filedocumented as of this encounter Care Teams Apprentice/Lineman Relationship Specialty Start Date End Date Reid Bolden PA-C [address] [place] [address] PCP - General Physician Director [facility] 08/17/20 documented as of this encounter
--- OUTSIDE RECORDS SUMMARY | 2023-10-04 23:23 | External Medical Summary | Summary of Care ---
Author Name Unknown Organization [facility] Address [address] [place] [address] Phone [phone] Care Team Providers Care Vamp Seamer Name Role Phone Reid Bolden PA-C Primary Care Provider + Reason for Visit * Reason Onset Date Comments Advice 05/17/2023 Encounter Details Date Type Department Care Team ([facility] st Contact Info) Description 05/17/2023 Telephone Neurology, [place] [address] [place] [address] Services, Scheduling [address] [place] [address] Advice Allergies No known active allergiesdocumented as of this encounter (statuses as of 05/20/2023) Medications Medication Sig Dispensed Refills Start Date End Date Status Incontinence Brief Large Use as needed, change once soiled 18 Each 11/20/2021 Active Donepezil HCl 10 MG Oral Tablet (Aricept) Take 1 Tablet by mouth daily with breakfast. Start this dose after finishing 5 mg tablets. 90 Tablet 3 11/09/2022 Active documented as of this encounter (statuses as of 05/20/2023) Active Problems No known active problems documented as of this encounter (statuses as of 05/20/2023) Social History Tobacco Use Types Packs/Day Years [...] his care Plz contact pt and advise [phone] Thank you documented in this encounter Plan [...] filedocumented as of this encounter Care Teams Vamp Seamer Relationship Specialty Start Date End Date Reid Bolden PA-C [address] [address] [place] [address] PCP - General Physician Drip Pumper 08/17/20 documented as of this encounter
--- OUTSIDE RECORDS SUMMARY | 2023-10-04 23:23 | External Medical Summary | Summary of Care ---
Author Name Unknown Organization [facility] Address [address] [place] [address] Phone [phone] Care Team Providers Care Ekg Tech Name Role Phone Reid Bolden PA-C Primary Care Provider + Reason for Visit * Reason Onset Date Comments Appointment 07/24/2023 Encounter Details Date Type Department Care Team (Late st Contact Info) Description 07/24/2023 Telephone Neurology, [place] [address] [place] [address] Services, Scheduling [address] [place] [address] Appointment Allergies No known active allergiesdocumented as of this encounter (statuses as of 07/26/2023) Medications Medication Sig Dispensed Refills Start Date End Date Status Incontinence Brief Large Use as needed, change once soiled 18 Each 11/20/2021 Active Donepezil HCl 10 MG Oral Tablet (Aricept) Take 1 Tablet by mouth daily with breakfast. Start this dose after finishing 5 mg tablets. 90 Tablet 3 11/09/2022 Active documented as of this encounter (statuses as of 07/26/2023) Active Problems No known active problems documented as of this encounter (statuses as of 07/26/2023) Social History Tobacco Use Types Packs/Day Years [...] report she on the phone with a broadcast technician at this time - can we return [...] phone number for nurse to call back: [phone] Please make sure you verify pharmacy for anything medication related. Form to be used for established patients only (not new patients) documented in this encounter Plan of Treatment Upcoming Encounters Date Type Department Care Team (Late st Contact Info) Description 07/29/2023 2:10 PM EDT Telemedicine Neurology, [place] [address] [place] [address] Jeannine Woods CRNP [address] [place] [address] Health Maintenance Due Date Last Done Comments [...] filedocumented as of this encounter Care Teams Ekg Tech Relationship Specialty Start Date End Date Reid Bolden PA-C [address] [place] [id number] PCP - General Physician Muck Miner Blasting 08/17/20 documented as of this encounter
[2023-10-05 05:59] LABS: Hemoglobin 14.5 g/dl (14.0-18.0); Mean Corpuscular Hgb Conc 33.7 g/dL (32.0-36.0); Mean Platelet Volume 9.3 fL (9.4-12.4); Platelet Count 188 K/uL (130-400); RDW Coefficient of Variation 13.2 % (11.5-14.5); RDW Standard Deviation 41.1 fL (36.4-46.3); White Blood Count 6.38 K/ul (4.8-10.8)
[2023-10-05 06:20] LABS: Anion Gap 5 (3-11); BUN Creatinine Ratio 13.8 (10-20); Blood Urea Nitrogen 13 mg/dl (6-23); Carbon Dioxide 29 mmol/L (21-32); Chloride 106 mmol/L (98-107); Est GFR (African American) 98.2 ml/min; Est GFR (Non-African American) 84.7 ml/min; Glucose 93 mg/dl (70-99(Fasting)); Potassium 3.9 mmol/L (3.5-5.1); Sodium 140 mmol/L (136-145)
--- NOTE | 2023-10-05 07:39 | Hospitalist Progress Note ---
Date of Service October 05, 2023 Assessment & Plan (1) Unable to care for self: Plan: Mr. Ragland is a 63-year-old male with past medical history significant for dementia, history of heavy alcohol abuse, history of depression with psychotic features and catatonia, history of polysubstance abuse ,history of cognitive decline since 2019 was sent in by office of aging and also his family as patient is unable to take care of himself and family also not able to take care of him. Per admitting hospitalist "Patient also found to have UTI. Patient was admitted in April 28, 2023 with the same unable to care for self and COVID and UTI and at the time he was discharged back home On jun 01 2023. Looks like previously case management tried to place him but could not find facility to accept him. patient currently alert and awake. Can tell his name. Can tell that he is in the hospital. Tells this is fifth month and year 24. Does not know why he is in the hospital. States he lives with his and his family. States ambulates without any support. Denies any headache. Denies dizziness. States vision is okay. Denies runny nose or sore throat or cough. Denies any fevers. No chest pain or shortness of breath. No nausea. No abdominal pain. Normal bowel and bladder movements. Currently resting comfortably and hemodynamically stable." Patient calm at bedside. No acute events. Continue IV ctx. Placement pending . #Neurocognitive disorder #Unable to care for self #history of depression Office of aging involved, complex social situation Case management to help with placement Psych consulted continue mirtazapine 15 qhs, abiligy 5/10mg delirium precautions # acute cystitis POA initially declined IV, but then agreeable when subject broached once more cont IV ctx santos-sensitive e coli DVT prophylaxis heparin subcu disposition medical floor PT/OT full code Admission and Anticipated Discharge Date Admission Date: October 03, 2023 Subjective NAEO Resting in bed, awakens easily, answers yes/no questions; denies any acute concerns Physical Exam Constitutional: WD/WN, vitals as above Respiratory: normal respiratory effort, lungs clear to auscultation Cardiovascular: RRR, no murmur, no edema Results & Data Results & Data Laboratory Results Short CBC 10/05/23 Range/Units 05:46 WBC 6.38 (4.8-10.8) K/ul Hgb 14.5 (14.0-18.0) g/dl Hct 43.0 (42.0-52.0) % Plt Count 188 (130-400) K/uL BMP 10/05/23 05:46 Sodium 140 Potassium 3.9 Chloride 106 Carbon Dioxide 29 BUN 13 Creatinine 0.94 Glucose 93 Calcium 9.0 Medications Administered Home Medications Medication Instructions Recorded Confirmed Last Taken aripiprazole 10 mg tablet 10 mg PO HS 30 days #30 tabs 05/24/23 Unknown estradiol 0.0375 mg/24 hr 0.0375 mg transdermal Q4D 30 days 05/24/23 Unknown semiweekly transdermal patch #8 ea Active Medications Generic Name Dose Route Start Last Admin Trade Name Lisa PRN Reason Stop Dose Admin Aripiprazole 5 mg 10/04/23 09:00 10/05/23 08:20 Aripiprazole 5 Mg Tab PO 11/03/23 08:59 5 mg QAM MICHEL Administration Aripiprazole 10 mg 10/04/23 21:00 10/04/23 22:18 Aripiprazole 10 Mg Tab PO 11/03/23 20:59 10 mg HS MICHEL Administration Heparin Sodium (Porcine) 5,000 units 10/04/23 09:00 10/05/23 08:20 Heparin Sod 5,000 Unit/0.5 Ml Vial SQ 11/03/23 08:59 5,000 units Q12 MICHEL Administration Ceftriaxone Sodium 2,000 mg in 50 mls @ 100 mls/hr 10/04/23 12:00 10/05/23 13:43 Rocephin IV 10/09/23 11:59 Infused Q24H MICHEL Infusion Mirtazapine 15 mg 10/04/23 21:00 10/04/23 22:18 Mirtazapine Tab 15 Mg Tab PO 11/03/23 20:59 15 mg HS MICHEL Administration Thiamine HCl 100 mg 10/04/23 09:00 10/05/23 08:20 Thiamine Hcl 100 Mg Tab PO 11/03/23 08:59 100 mg QAM MICHEL Administration
--- NOTE | 2023-10-05 13:41 | Psychiatric Progress Note ---
Date of Service October 05, 2023 Impression / Recommendations Impression Diagnostically consistent with likely worsening of neurocognitive disorder including difficulty toileting independently and family unable to continue to meet his needs at home. Given that neurocognitive disorder seems to be the underlying condition driving his recent decompensation the 302 commitment is no longer valid and will allowed to . I cannot find any documentation in the chart regarding past neurology consults or outpatient neurocognitive testing, if present this could be useful in better identifying what type of neurocognitive disorder he may have which may allow for additional medication options. (1) Neurocognitive disorder: Plan Continue current medications. The patient does not meet criteria for inpatient psychiatric hospitalization. He does not present an imminent danger to self or others due to acute psychiatric illness. Though he may not be able to care for himself outside the hospital, it is not due to an acute psychiatric condition but rather than neurodegenerative disorder so his 302 commitment is not valid and is discontinued. When medically stable he can be discharged to a long-term or whatever living situation is deemed appropriate. Interval History Identifying Information 63 yo man with a history of neurocognitive disorder, alcohol use disorder, depression with psychotic features admitted medically due to inability to care for self. Psychiatry consulted for 302 commitment, recommendations. Chief Complaint "I'm alright". Subjective Subjective Patient was seen & assessed and interval progress reviewed. Alert and oriented x3. He reports experiencing memory issues, particularly with remembering "little things" but is unable to provide further details. He acknowledges these memory problems have made it difficult for family to care for him at home, especially with timely toileting. He admits to sometimes feeling depressed, attributing this to inactivity. However, he states his appetite remains good, favoring hamburgers and hot dogs, and describes his sleep quality as "pretty good." Patient is unsure of specifics regarding his medications but confirms he is taking some, which he believes are helpful. He denies any SI/HI or other significant concerns/questions at this time. Physical Exam Vital Signs (Past 24 Hours) Last Vital Signs Temp 36.6 C 10/05/23 08:53 Pulse 57 L 10/05/23 08:53 Resp 16 10/05/23 08:53 BP 119/85 10/05/23 08:53 Pulse Ox 97 10/05/23 08:53 O2 Del Method Room Air 10/05/23 08:53 Results & Data ([facility]) Laboratory Results Laboratory Results - last 24 hr 10/05/23 05:46 WBC 6.38 RBC 5.00 Hgb 14.5 Hct 43.0 MCV 86.0 MCH 29.0 MCHC 33.7 RDW Std Deviation 41.1 RDW Coeff of Bhavesh 13.2 Plt Count 188 MPV 9.3 L Sodium 140 Potassium 3.9 Chloride 106 Carbon Dioxide 29 Anion Gap 5 BUN 13 Creatinine 0.94 Est Cr Clr Drug Dosing Not Reportable Est GFR ( Amer) 98.2 Est GFR (Non-Af Amer) 84.7 BUN/Creatinine Ratio 13.8 Glucose 93 Calcium 9.0 Current Inpatient Medications Current Inpatient Medications: Current Inpatient Medications Aripiprazole (Aripiprazole 5 Mg Tab) [facility]: 11/03/23 08:59 Last Admin: 10/05/23 08:20 Dose: 5 mg Aripiprazole (Aripiprazole 10 Mg Tab) 10 mg PO [facility] Stop: 11/03/23 20:59 Last Admin: 10/04/23 22:18 Dose: 10 mg Heparin Sodium (Porcine) (Heparin Sod 5,000 Unit/0.5 Ml Vial) 5,000 units SQ Q12 MICHEL Stop: 11/03/23 08:59 Last Admin: 10/05/23 08:20 Dose: 5,000 units Lorazepam 0.5 mg/ Syringe 0.5 mls @ 2 mls/min IM Q4H PRN; Protocol PRN Reason: ANXIETY/AGITATION Stop: 11/03/23 03:22 Ceftriaxone Sodium (Rocephin) 2,000 mg in 50 mls @ 100 mls/hr IV Q24H [facility] Stop: 10/09/23 11:59 Last Admin: 10/05/23 12:24 Dose: 100 mls/hr Mirtazapine (Mirtazapine Tab 15 Mg Tab) 15 mg PO HS [facility] Stop: 11/03/23 20:59 Last Admin: 10/04/23 22:18 Dose: 15 mg Polyethylene Glycol (Polyethylene (Miralax) 17 Gm Pack) 17 gm PO DAILY PRN PRN Reason: Constipation Stop: 11/03/23 02:47 Thiamine HCl (Thiamine Hcl 100 Mg Tab) 100 mg PO QAM [facility] Stop: 11/03/23 08:59 Last Admin: 10/05/23 08:20 Dose: 100 mg
--- NOTE | 2023-10-06 09:58 | Hospitalist Progress Note ---
Date of Service October 06, 2023 Assessment & Plan (1) Unable to care for self: Plan: Mr. Ragland is a 63-year-old male with past medical history significant for dementia, history of heavy alcohol abuse, history of depression with psychotic features and catatonia, history of polysubstance abuse ,history of cognitive decline since 2019 was sent in by office of aging and also his family as patient is unable to take care of himself and family also not able to take care of him. Per admitting hospitalist "Patient also found to have UTI. Patient was admitted in April 28, 2023 with the same unable to care for self and COVID and UTI and at the time he was discharged back home On jun 01 2023. Looks like previously case management tried to place him but could not find facility to accept him. patient currently alert and awake. Can tell his name. Can tell that he is in the hospital. Tells this is fifth month and year 24. Does not know why he is in the hospital. States he lives with his and his family. States ambulates without any support. Denies any headache. Denies dizziness. States vision is okay. Denies runny nose or sore throat or cough. Denies any fevers. No chest pain or shortness of breath. No nausea. No abdominal pain. Normal bowel and bladder movements. Currently resting comfortably and hemodynamically stable." Patient calm at bedside. No acute events. Continue IV ctx. Placement pending. No acute concerns #Neurocognitive disorder #Unable to care for self #history of depression Office of aging involved, complex social situation Case management to help with placement Psych consulted continue mirtazapine 15 qhs, abiligy 5/10mg delirium precautions # acute cystitis POA initially declined IV, but then agreeable when subject broached once more cont IV ctx santos-sensitive e coli cbc/bmp in am DVT prophylaxis heparin subcu disposition medical floor PT/OT full code Admission and Anticipated Discharge Date Admission Date: October 03, 2023 Subjective NAEO Head under covers--peaked over cover, responded appropriately to yes/no questions. Denies pain or concerns. States he doesnt need anything and pulled cover over head Physical Exam Constitutional: disheveled Respiratory: normal respiratory effort, lungs clear to auscultation Cardiovascular: RRR, no murmur, no edema Musculoskeletal: moving all extremities equally Results & Data Results & Data Vital Signs (Past 12 Hours) Vital Signs Temp Pulse Resp BP Pulse Ox O2 Del Method 10/06/23 07:37 36.6 C 50 L 16 108/72 95 Room Air 10/05/23 22:16 102/62 Medications Administered Home Medications Medication Instructions Recorded Confirmed Last Taken aripiprazole 10 mg tablet 10 mg PO HS 30 days #30 tabs 05/24/23 Unknown estradiol 0.0375 mg/24 hr 0.0375 mg transdermal Q4D 30 days 05/24/23 Unknown semiweekly transdermal patch #8 ea Active Medications Generic Name Dose Route Start Last Admin Trade Name Freq PRN Reason Stop Dose Admin Aripiprazole 5 mg 10/04/23 09:00 10/05/23 08:20 Aripiprazole 5 Mg Tab PO 11/03/23 08:59 5 mg QAM MICHEL Administration Aripiprazole 10 mg 10/04/23 21:00 10/05/23 21:58 Aripiprazole 10 Mg Tab PO 11/03/23 20:59 10 mg HS MICHEL Administration Heparin Sodium (Porcine) 5,000 units 10/04/23 09:00 10/05/23 21:58 Heparin Sod 5,000 Unit/0.5 Ml Vial SQ 11/03/23 08:59 5,000 units Q12 MICHEL Administration Ceftriaxone Sodium 2,000 mg in 50 mls @ 100 mls/hr 10/04/23 12:00 10/05/23 13:43 Rocephin IV 10/09/23 11:59 Infused Q24H MICHEL Infusion Mirtazapine 15 mg 10/04/23 21:00 10/05/23 21:55 Mirtazapine Tab 15 Mg Tab PO 11/03/23 20:59 15 mg HS MICHEL Administration Thiamine HCl 100 mg 10/04/23 09:00 10/05/23 08:20 Thiamine Hcl 100 Mg Tab PO 11/03/23 08:59 100 mg QAM MICHEL Administration
[2023-10-07 07:14] LABS: Hematocrit (blood only) 46.3 % (42.0-52.0); Hemoglobin 15.6 g/dl (14.0-18.0); Mean Corpuscular Hemoglobin 29.7 pg (25.0-34.0); Mean Corpuscular Hgb Conc 33.7 g/dL (32.0-36.0); Mean Platelet Volume 9.7 fL (9.4-12.4); Platelet Count 185 K/uL (130-400); RDW Coefficient of Variation 13.2 % (11.5-14.5); RDW Standard Deviation 42.6 fL (36.4-46.3); Red Blood Count 5.26 M/uL (4.70-6.10); White Blood Count 6.15 K/ul (4.8-10.8)
[2023-10-07 07:32] LABS: Calcium 9.4 mg/dl (8.6-10.3); Creatinine Clr Calc Pharmacy 70.1 ml/min; Est GFR (African American) 85.9 ml/min; Est GFR (Non-African American) 74.1 ml/min; Magnesium 1.9 mg/dl (1.7-2.4); Phosphorus 3.5 mg/dl (2.5-4.9); Potassium 4.1 mmol/L (3.5-5.1)
--- NOTE | 2023-10-07 12:27 | Hospitalist Progress Note ---
Date of Service October 07, 2023 Assessment & Plan (1) Unable to care for self: Plan: Mr. Ragland is a 63-year-old male with past medical history significant for dementia, history of heavy alcohol abuse, history of depression with psychotic features and catatonia, history of polysubstance abuse ,history of cognitive decline since 2019 was sent in by office of aging and also his family as patient is unable to take care of himself and family also not able to take care of him. Per admitting hospitalist "Patient also found to have UTI. Patient was admitted in April 28, 2023 with the same unable to care for self and COVID and UTI and at the time he was discharged back home On jun 01 2023. Looks like previously case management tried to place him but could not find facility to accept him. patient currently alert and awake. Can tell his name. Can tell that he is in the hospital. Tells this is fifth month and year 24. Does not know why he is in the hospital. States he lives with his and his family. States ambulates without any support. Denies any headache. Denies dizziness. States vision is okay. Denies runny nose or sore throat or cough. Denies any fevers. No chest pain or shortness of breath. No nausea. No abdominal pain. Normal bowel and bladder movements. Currently resting comfortably and hemodynamically stable." Patient calm at bedside. No acute events. Continue IV ctx. Placement pending. No acute concerns #Neurocognitive disorder #Unable to care for self #history of depression Office of aging involved, complex social situation Case management to help with placement Psych consulted continue mirtazapine 15 qhs, abiligy 5/10mg delirium precautions # acute cystitis POA initially declined IV, but then agreeable when subject broached once more cont IV ctx santos-sensitive e coli day 4/ antibiotics labs stable DVT prophylaxis heparin subcu disposition medical floor PT/OT full code Admission and Anticipated Discharge Date Admission Date: October 03, 2023 Subjective NAEO Denies any concerns. States to "leave [him] alone" Physical Exam Constitutional: WD/WN, vitals as above Respiratory: normal respiratory effort, lungs clear to auscultation Cardiovascular: RRR, no murmur, no edema Results & Data Results & Data Vital Signs (Past 12 Hours) Vital Signs Temp Pulse Resp BP Pulse Ox O2 Del Method 10/07/23 07:21 36.5 C 58 L 16 99/64 L 96 Room Air Laboratory Results Short CBC 10/07/23 Range/Units 05:34 WBC 6.15 (4.8-10.8) K/ul Hgb 15.6 (14.0-18.0) g/dl Hct 46.3 (42.0-52.0) % Plt Count 185 (130-400) K/uL BMP 10/07/23 05:34 Sodium 141 Potassium 4.1 Chloride 105 Carbon Dioxide 31 BUN 22 Creatinine 1.05 Glucose 89 Calcium 9.4 Medications Administered Home Medications Medication Instructions Recorded Confirmed Last Taken aripiprazole 10 mg tablet 10 mg PO HS 30 days #30 tabs 05/24/23 Unknown estradiol 0.0375 mg/24 hr 0.0375 mg transdermal Q4D 30 days 05/24/23 Unknown semiweekly transdermal patch #8 ea Active Medications Generic Name Dose Route Start Last Admin Trade Name Freq PRN Reason Stop Dose Admin Aripiprazole 5 mg 10/04/23 09:00 10/07/23 07:56 Aripiprazole 5 Mg Tab PO 11/03/23 08:59 5 mg QAM MICHEL Administration Aripiprazole 10 mg 10/04/23 21:00 10/06/23 20:23 Aripiprazole 10 Mg Tab PO 11/03/23 20:59 10 mg HS MICHEL Administration Heparin Sodium (Porcine) 5,000 units 10/04/23 09:00 10/07/23 07:55 Heparin Sod 5,000 Unit/0.5 Ml Vial SQ 11/03/23 08:59 5,000 units Q12 MICHEL Administration Ceftriaxone Sodium 2,000 mg in 50 mls @ 100 mls/hr 10/04/23 12:00 10/07/23 11:27 Rocephin IV 10/09/23 11:59 Infused Q24H MICHEL Infusion Mirtazapine 15 mg 10/04/23 21:00 10/06/23 20:23 Mirtazapine Tab 15 Mg Tab PO 11/03/23 20:59 15 mg HS MICHEL Administration Thiamine HCl 100 mg 10/04/23 09:00 10/07/23 07:56 Thiamine Hcl 100 Mg Tab PO 11/03/23 08:59 100 mg QAM MICHEL Administration
--- NOTE | 2023-10-08 10:32 | Hospitalist Progress Note ---
Date of Service October 08, 2023 Assessment & Plan (1) Unable to care for self: Plan: Mr. Ragland is a 63-year-old male with past medical history significant for dementia, history of heavy alcohol abuse, history of depression with psychotic features and catatonia, history of polysubstance abuse ,history of cognitive decline since 2019 was sent in by office of aging and also his family as patient is unable to take care of himself and family also not able to take care of him. Per admitting hospitalist "Patient also found to have UTI. Patient was admitted in April 28, 2023 with the same unable to care for self and COVID and UTI and at the time he was discharged back home On jun 01 2023. Looks like previously case management tried to place him but could not find facility to accept him. patient currently alert and awake. Can tell his name. Can tell that he is in the hospital. Tells this is fifth month and year 24. Does not know why he is in the hospital. States he lives with his and his family. States ambulates without any support. Denies any headache. Denies dizziness. States vision is okay. Denies runny nose or sore throat or cough. Denies any fevers. No chest pain or shortness of breath. No nausea. No abdominal pain. Normal bowel and bladder movements. Currently resting comfortably and hemodynamically stable." Patient calm at bedside. No acute events. Continue IV ctx. Placement pending. No acute concerns No reported behavioral issues since admission. Case management working on placement. 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 #Neurocognitive disorder #Unable to care for self #history of depression Office of aging involved, complex social situation Case management to help with placement Psych consulted continue mirtazapine 15 qhs, abiligy 5/10mg delirium precautions Neurology consulted: aid in diagnosis of formal neurocognitive d/o and perhaps further medications -History of sexual disinhibition per 04/20/2023 reports, previously on estradiol 0.0375 patch -Typically managed by psych, but no noted neurology consults # acute cystitis POA initially declined IV, but then agreeable when subject broached once more cont IV ctx santos-sensitive e coli day 09/14 antibiotics labs stable DVT prophylaxis heparin subcu disposition medical floor PT/OT full code Admission and Anticipated Discharge Date Admission Date: October 03, 2023 Subjective NAEO Patient engaging more discussion today, elaborating on answers more; knows he is getting IV antibiotics doesn't seem to relay understanding otherwise Denies chest pain, fevers, chills or other concerns. Reports walking around in room. States he "doesn't need anything. thanks." Physical Exam Constitutional: WD/WN, vitals as above Respiratory: normal respiratory effort, lungs clear to auscultation Cardiovascular: RRR, no murmur, no edema Results & Data Results & Data Vital Signs (Past 12 Hours) Vital Signs Temp Pulse Resp BP Pulse Ox O2 Del Method 10/08/23 07:20 36.4 C L 53 L 16 114/73 95 Room Air Medications Administered Home Medications Medication Instructions Recorded Confirmed Last Taken aripiprazole 10 mg tablet 10 mg PO HS 30 days #30 tabs 05/24/23 Unknown estradiol 0.0375 mg/24 hr 0.0375 mg transdermal Q4D 30 days 05/24/23 Unknown semiweekly transdermal patch #8 ea Active Medications Generic Name Dose Route Start Last Admin Trade Name Lisa PRN Reason Stop Dose Admin Aripiprazole 5 mg 10/04/23 09:00 10/08/23 07:08 Aripiprazole 5 Mg Tab PO 11/03/23 08:59 5 mg QAM MICHEL Administration Aripiprazole 10 mg 10/04/23 21:00 10/07/23 19:59 Aripiprazole 10 Mg Tab PO 11/03/23 20:59 10 mg HS MICHEL Administration Heparin Sodium (Porcine) 5,000 units 10/04/23 09:00 10/08/23 07:08 Heparin Sod 5,000 Unit/0.5 Ml Vial SQ 11/03/23 08:59 5,000 units Q12 MICHEL Administration Ceftriaxone Sodium 2,000 mg in 50 mls @ 100 mls/hr 10/04/23 12:00 10/07/23 11:27 Rocephin IV 10/09/23 11:59 Infused Q24H MICHEL Infusion Mirtazapine 15 mg 10/04/23 21:00 10/07/23 19:59 Mirtazapine Tab 15 Mg Tab PO 11/03/23 20:59 15 mg HS MICHEL Administration Thiamine HCl 100 mg 10/04/23 09:00 10/08/23 07:08 Thiamine Hcl 100 Mg Tab PO 11/03/23 08:59 100 mg QAM MICHEL Administration
--- NOTE | 2023-10-08 13:23 | Neurology Consultation ---
Date of Consultation October 08, 2023 Assessment & Plan (1) Neurocognitive disorder: Recommend MRI brain with and without contrast if able to tolerate Recommend continued neurological assessments Obtain stat CT brain without contrast for any neurological decline Agree with continue antimicrobial therapy Monitor for s/s of worsening infection Continue to monitor blood pressure & blood glucose Recommend continue to monitor renal and hepatic function, keep euvolemic Recommend assess vitamin levels and supplement as needed Metabolic workup should include hgbA1c, fasting lipids, homocysteine, TSH, D Dimer PT/OT/SLT evaluate and treat Recommend SLT for cognitive evaluation Recommend outpatient neuropsychiatric testing Would not recommend starting watermaster medication in setting of acute UTI and hospitalization Agree with continued monitoring for behavioral disturbances and defer to psychiatry for acute management Recommend outpatient follow up with adult neurology in memory clinic VTE prophylaxis Telehealth Consultation Telehealth Information Telehealth Information: I performed this visit using a real-time telehealth connection between my location and the patients location ([facility]). After connecting through interactive tele-video, patient was identified by name and date of and/or wristband check.Patient (or authorized healthcare technology sales representative) was informed that this was a telemedicine visit and it was being conducted confidentially over secure lines. My office door was closed and no one else was present in the room with me.Patient (or authorized healthcare rep resentative) provided consent to proceed with the visit, expressed an understanding of privacy and security of the telemedicine visit, and gave permission to have a hospital technology sales representative in the room in order to assist with the visit and to conduct portions of the visit, as needed. I informed the patient (or authorized healthcare technology sales representative) that I reviewed their record and presented the opportunity for them to ask any questions regarding the visit today. The patient agreed to participate. History of Present Illness Reason for Consultation: Neurocognitive decline Requesting Physician: Dr. Wright Attending Physician: Betsey Wright MD History of Present Illness 63yo male with significant history of chronic alcoholism and polysubstance abuse, depression with report of psychotic features and cognitive decline. was having difficulty caring for self at home. Found to have UTI and has been receiving antimicrobial therapy. Has not undergone brain imaging this admission but per daily documentation review has been demonstrating some improvement in his mentation. I have performed televideo consultation with help of bedside provider due to camera technical difficulties. He is alert & oriented. Able to answer all questions appropriately, repeat phrases and perform complex/embedded commands without deficit. Neurological exam is non lateralizing/nonfocal in terms of motor strength and coordination. NIHSS=0. He denies complaint; appears in no apparent distress or discomfort. When asked why he is in the hospital he responds "because of dementia". Allergies Allergy/AdvReac Type Severity Reaction Status Date / Time No Known Allergies Allergy NONE Verified 04/10/23 02:41 Home Medications Medication Instructions Recorded Confirmed Type aripiprazole 10 mg tablet 10 mg PO HS 30 days #30 tabs 05/24/23 Rx estradiol 0.0375 mg/24 hr 0.0375 mg transdermal Q4D 30 days 05/24/23 Rx semiweekly transdermal patch #8 ea Patient History Family History Other Family history non-contributory Social History Smoking Status: Current some day smoker Tobacco Type: Cigarettes Hx Alcohol Use: Yes Hx Substance Use: No Preferred Language: [place] Communication Ability: Effective 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 Able to tell me Isai is president. He answers correctly when asked what $7 minus $0.75 will leave= he states $6.25 Fluency naming repetition appear grossly intact. Affect remains appropriate. CN testing: I: Difficult to reliably assess II:Reports no changes in visual acuity III/IV/: No evidence of gaze preference, hippus, nystagmus or roving eye movements V: Facial sensation is difficult to reliably assess VII: Facial movements appear without evidence of asymmetry VIII: Hearing appears grossly intact to loud voice bilaterally IX/X: Palate is difficult to reliably assess XI: Shoulder shrug appears symmetric/ grossly intact bilaterally XII: Tongue protrudes midline without evidence of biting Motor exam: Strength appears grossly intact/symmetric in all extremities Sensory: Sensation is reportedly grossly intact throughout Coordination: Deferred Reflexes: Deferred Gait: Deferred Results & Data Vital Signs (Past 12 Hours) Vital Signs Temp Pulse Resp BP Pulse Ox O2 Del Method 10/08/23 07:20 36.4 C L 53 L 16 114/73 95 Room Air Medications Administered Home Medications Medication Instructions Recorded Confirmed Last Taken aripiprazole 10 mg tablet 10 mg PO HS 30 days #30 tabs 05/24/23 Unknown estradiol 0.0375 mg/24 hr 0.0375 mg transdermal Q4D 30 days 05/24/23 Unknown semiweekly transdermal patch #8 ea Active Medications Generic Name Dose Route Start Last Admin Trade Name Lisa PRN Reason Stop Dose Admin Aripiprazole 5 mg 10/04/23 09:00 10/08/23 07:08 Aripiprazole 5 Mg Tab PO 11/03/23 08:59 5 mg QAM IMCHEL Administration Aripiprazole 10 mg 10/04/23 21:00 10/07/23 19:59 Aripiprazole 10 Mg Tab PO 11/03/23 20:59 10 mg HS MICHEL Administration Heparin Sodium (Porcine) 5,000 units 10/04/23 09:00 10/08/23 07:08 Heparin Sod 5,000 Unit/0.5 Ml Vial SQ 11/03/23 08:59 5,000 units Q12 MICHEL Administration Ceftriaxone Sodium 2,000 mg in 50 mls @ 100 mls/hr 10/04/23 12:00 10/08/23 11:43 Rocephin IV 10/09/23 11:59 Infused Q24H MICHEL Infusion Mirtazapine 15 mg 10/04/23 21:00 10/07/23 19:59 Mirtazapine Tab 15 Mg Tab PO 11/03/23 20:59 15 mg HS MICHEL Administration Thiamine HCl 100 mg 10/04/23 09:00 10/08/23 07:08 Thiamine Hcl 100 Mg Tab PO 11/03/23 08:59 100 mg QAM MICHEL Administration
[2023-10-08] MEDS: GADOBUTROL 65ML VIAL IV ONE (20:01)
--- NOTE | 2023-10-08 20:53 | Magnetic Resonance Report ---
Exam(s): MRI HEAD W/WO Contrast IV Amt: 8CC GADAVIST EXAM: MR Head Without and With Intravenous Contrast CLINICAL HISTORY: Reason for exam: neurocognitive decline; frontotemporal dementia?. TECHNIQUE: Magnetic resonance images of the head/brain without and with intravenous contrast in multiple planes. CONTRAST: Patient received 8CC GADAVIST of IV contrast COMPARISON: No relevant prior studies available. FINDINGS: Artifacts: No hemorrhage or susceptibility artifact is seen. Brain: The medial temporal lobe structures appear normal. The brain parenchymal volume appears within normal limits for age. No significant atrophy. No hemorrhage. No areas of diffusion restriction are seen to indicate acute stroke. There is no mass lesion or midline shift. Brainstem: The posterior fossa and cerebellopontine angles are unremarkable. Ventricles: Unremarkable. No ventriculomegaly. Bones/joints: Unremarkable. No acute fracture. Soft tissues: Unremarkable. No areas of abnormal contrast enhancement are identified. Sinuses: Unremarkable as visualized. No acute sinusitis. Mastoid air cells: Unremarkable as visualized. No mastoid effusion. Orbits: Unremarkable as visualized. IMPRESSION: No acute findings in the head/brain. Electronically signed by: Patricio Mayfield MD 10/08/23 20:52 PM
[2023-10-09 06:39] LABS: Hematocrit (blood only) 46.7 % (42.0-52.0); Hemoglobin 15.7 g/dl (14.0-18.0); Mean Corpuscular Hemoglobin 29.4 pg (25.0-34.0); Mean Corpuscular Hgb Conc 33.6 g/dL (32.0-36.0); Mean Corpuscular Volume 87.5 fL (80.0-100.0); Mean Platelet Volume 9.4 fL (9.4-12.4); Platelet Count 179 K/uL (130-400); RDW Coefficient of Variation 13.1 % (11.5-14.5); RDW Standard Deviation 41.8 fL (36.4-46.3); Red Blood Count 5.34 M/uL (4.70-6.10); White Blood Count 6.04 K/ul (4.8-10.8)
[2023-10-09 06:54] LABS: BUN Creatinine Ratio 20.8 (10-20); Calcium 9.5 mg/dl (8.6-10.3); Chol HDL Ratio 3.4 (0-5); Creatinine Clr Calc Pharmacy 69.5 ml/min; Est GFR (African American) 84.9 ml/min; Est GFR (Non-African American) 73.3 ml/min; Potassium 4.3 mmol/L (3.5-5.1)
[2023-10-09 06:58] LABS: D Dimer 380 ug/L FEU (0-500)
[2023-10-09 07:08] LABS: Estimated Average Glucose 114 mg/dl; Hemoglobin A1C 5.6 % (4.5-5.6); Thyroid Stimulating Hormone 2.527 uIu/ml (0.300-4.500)
[2023-10-09 07:16] LABS: Folate (Folic Acid),Ser orPlas 14.54 ng/ml (>5.38)
--- NOTE | 2023-10-09 19:07 | Hospitalist Progress Note ---
Date of Service October 09, 2023 Assessment & Plan (1) Unable to care for self: Plan: Mr. Ragland is a 63-year-old male with past medical history significant for dementia, history of heavy alcohol abuse, history of depression with psychotic features and catatonia, history of polysubstance abuse ,history of cognitive decline since 2019 was sent in by office of aging and also his family as patient is unable to take care of himself and family also not able to take care of him. Per admitting hospitalist "Patient also found to have UTI. Patient was admitted in April 28, 2023 with the same unable to care for self and COVID and UTI and at the time he was discharged back home On jun 01 2023. Looks like previously case management tried to place him but could not find facility to accept him. patient currently alert and awake. Can tell his name. Can tell that he is in the hospital. Tells this is fifth month and year 24. Does not know why he is in the hospital. States he lives with his and his family. States ambulates without any support. Denies any headache. Denies dizziness. States vision is okay. Denies runny nose or sore throat or cough. Denies any fevers. No chest pain or shortness of breath. No nausea. No abdominal pain. Normal bowel and bladder movements. Currently resting comfortably and hemodynamically stable." Patient calm at bedside. No acute events. Continue IV ctx. Placement pending. No acute concerns No reported behavioral issues since admission. Case management working on placement. 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 #Neurocognitive disorder #Unable to care for self #history of depression Office of aging involved, complex social situation Case management to help with placement Psych consulted continue mirtazapine 15 qhs, abiligy 5/10mg delirium precautions Neurology consulted: aid in diagnosis of formal neurocognitive d/o and perhaps further medications -History of sexual disinhibition per 04/20/2023 reports, previously on estradiol 0.0375 patch -appreciate neuro recs. # acute cystitis POA : s/p 5 days rocephin course DVT prophylaxis: heparin subcu disposition: medical floor PT/OT full code Admission and Anticipated Discharge Date Admission Date: October 03, 2023 Subjective Pt was lying in bed, on RA, NAD, oriented, no pain, reports eating ok and moving bowels ok. Denies headache or dizziness. Physical Exam Physical Exam: General- Not in distress. Head- atraumatic Eyes- EOMI Neck- supple. Lungs- clear to auscultation no wheezing or crackles Heart- regular rhythm; no murmur, no gallop. Abdomen- normal bowel sounds, soft, nontender, no distension. Extremities- no pretibial edema, no erythema seen. Neuro- alert, oriented x 3; EOMI; no facial palsy; no dysarthria; moves extremities. Results & Data Results & Data Vital Signs (Past 12 Hours) Vital Signs Temp Pulse Resp BP Pulse Ox O2 Del Method 10/09/23 11:55 36.8 C 74 14 108/72 93 Room Air 10/09/23 07:09 36.5 C 64 14 112/72 91 Room Air
--- NOTE | 2023-10-10 10:15 | Communication Note ---
Date of Service: October 10, 2023 Neurology Update: MRI brain is unremarkable. Further dementia care must be explored as an outpatient when patient is free of acute infection. Otherwise no readily reversible causes identified. Neurology follow-up in 4-6 weeks. Please contact us with any further questions.
[2023-10-10] MEDS: CHOLECALCIFEROL 125 MCG (5,000 UNITS) TAB PO SCH (12:09)
[2023-10-10] MEDS: CYANOCOBALAMIN (B-12) 100 MCG TABLET PO SCH (12:09)
--- NOTE | 2023-10-10 14:52 | Hospitalist Progress Note ---
Date of Service October 10, 2023 Assessment & Plan (1) Unable to care for self: Plan: 63-year-old male w/ PMH of dementia, heavy alcohol abuse, depression with psychotic features and catatonia, polysubstance abuse, cognitive decline since 2019 was sent in by office of aging and also his family as patient is unable to take care of himself and family also not able to take care of him. Of note, patient was admitted in April 28, 2023 with the same unable to care for self and COVID and UTI and at the time he was discharged back home on Jun 01 2023. He was difficult to find placement for. He was noted to have UTI at presentation. He is being managed for the following: #Neurocognitive disorder #Unable to care for self #history of depression Office of aging involved, complex social situation History of sexual disinhibition per 04/20/2023 reports, previously on estradiol 0.0375 patch Case management to help with placement Psych consulted - continue mirtazapine 15 qhs, abiligy 5/10mg Neuro evaled: MRI brain unremarkable, f/u Neuro in 4-6 weeks for further w/u. Obtain stat CT brain without contrast for any neurological decline Recommend outpatient neuropsychiatric testing. Recommend outpatient follow up with adult neurology in memory clinic PT/OT/SLT evals. Delirium precautions TSH wnl, B12 low nl - c/w B12 supplement 10/09. c/w thiamine. Acute cystitis POA : s/p 5 days Rocephin course DVT prophylaxis: heparin subcu Disposition: medical floor PT/OT. CM to assist. Full code Admission and Anticipated Discharge Date Admission Date: October 03, 2023 Subjective Pt was lying in bed, on RA, NAD, oriented, no pain, reports eating ok and moving bowels ok. Denies headache or dizziness. Physical Exam Physical Exam: General- Not in distress. Head- atraumatic Eyes- EOMI Neck- supple. Lungs- clear to auscultation no wheezing or crackles Heart- regular rhythm; no murmur, no gallop. Abdomen- normal bowel sounds, soft, nontender, no distension. Extremities- no pretibial edema, no erythema seen. Neuro- alert, oriented x 3; EOMI; no facial palsy; no dysarthria; moves extremities.
--- NOTE | 2023-10-11 16:52 | Hospitalist Progress Note ---
Date of Service October 11, 2023 Assessment & Plan (1) Unable to care for self: Plan: 63-year-old male w/ PMH of dementia, heavy alcohol abuse, depression with psychotic features and catatonia, polysubstance abuse, cognitive decline since 2019 was sent in by office of aging and also his family as patient is unable to take care of himself and family also not able to take care of him. Of note, patient was admitted in April 28, 2023 with the same unable to care for self and COVID and UTI and at the time he was discharged back home on Jun 01 2023. He was difficult to find placement for. He was noted to have UTI at presentation. He is being managed for the following: #Neurocognitive disorder #Unable to care for self #history of depression Office of aging involved, complex social situation History of sexual disinhibition per 04/20/2023 reports, previously on estradiol 0.0375 patch Case management to help with placement Psych consulted - continue mirtazapine 15 qhs, abiligy 5/10mg Neuro evaled: MRI brain unremarkable, f/u Neuro in 4-6 weeks for further w/u. Obtain stat CT brain without contrast for any neurological decline Recommend outpatient neuropsychiatric testing. Recommend outpatient follow up with adult neurology in memory clinic PT/OT/SLT evals. Delirium precautions TSH wnl, B12 low nl - c/w B12 supplement 10/09. c/w thiamine. Acute cystitis POA : s/p 5 days Rocephin course DVT prophylaxis: heparin subcu Disposition: medical floor PT/OT. CM to assist. Full code Admission and Anticipated Discharge Date Admission Date: October 03, 2023 Subjective Pt was lying in bed, on RA, NAD, oriented, no pain, reports eating ok and moving bowels ok. Denies headache or dizziness. Physical Exam Physical Exam: General- Not in distress. Head- atraumatic Eyes- EOMI Neck- supple. Lungs- clear to auscultation no wheezing or crackles Heart- regular rhythm; no murmur, no gallop. Abdomen- normal bowel sounds, soft, nontender, no distension. Extremities- no pretibial edema, no erythema seen. Neuro- alert, oriented x 3; EOMI; no facial palsy; no dysarthria; moves extremities. Results & Data Results & Data Vital Signs (Past 12 Hours) Vital Signs Temp Pulse Pulse Resp BP BP Pulse Ox 10/11/23 15:01 36.7 C 68 16 113/73 95 10/11/23 11:20 36.7 C 62 16 126/88 94 10/11/23 07:22 36.5 C 64 16 120/72 96 O2 Del Method 10/11/23 15:01 Room Air 10/11/23 11:20 Room Air 10/11/23 07:22 Room Air
--- NOTE | 2023-10-12 16:44 | Hospitalist Progress Note ---
Date of Service October 12, 2023 Assessment & Plan (1) Unable to care for self: Plan: 63-year-old male w/ PMH of dementia, heavy alcohol abuse, depression with psychotic features and catatonia, polysubstance abuse, cognitive decline since 2019 was sent in by office of aging and also his family as patient is unable to take care of himself and family also not able to take care of him. Of note, patient was admitted in April 28, 2023 with the same unable to care for self and COVID and UTI and at the time he was discharged back home on Jun 01 2023. He was difficult to find placement for. He was noted to have UTI at presentation. He is being managed for the following: #Neurocognitive disorder #Unable to care for self #history of depression Office of aging involved, complex social situation History of sexual disinhibition per 04/20/2023 reports, previously on estradiol 0.0375 patch Case management to help with placement Psych consulted - continue mirtazapine 15 qhs, abiligy 5/10mg Neuro evaled: MRI brain unremarkable, f/u Neuro in 4-6 weeks for further w/u. Obtain stat CT brain without contrast for any neurological decline Recommend outpatient neuropsychiatric testing. Recommend outpatient follow up with adult neurology in memory clinic PT/OT/SLT evals. Delirium precautions TSH wnl, B12 low nl - c/w B12 supplement 10/09. c/w thiamine. Acute cystitis POA : s/p 5 days Rocephin course DVT prophylaxis: heparin subcu Disposition: medical floor PT/OT. CM to assist. Full code Admission and Anticipated Discharge Date Admission Date: October 03, 2023 Subjective Pt was lying in bed, on RA, NAD, oriented, no pain, reports eating ok and moving bowels ok. Denies headache or dizziness. Physical Exam Physical Exam: General- Not in distress. Head- atraumatic Eyes- EOMI Neck- supple. Lungs- clear to auscultation no wheezing or crackles Heart- regular rhythm; no murmur, no gallop. Abdomen- normal bowel sounds, soft, nontender, no distension. Extremities- no pretibial edema, no erythema seen. Neuro- alert, oriented x 3; EOMI; no facial palsy; no dysarthria; moves extremities. Results & Data Results & Data Vital Signs (Past 12 Hours) Vital Signs Temp Pulse Resp BP BP Pulse Ox O2 Del Method 10/12/23 14:31 36.7 C 69 16 110/71 94 Room Air 10/12/23 07:47 36.6 C 70 16 137/72 97 Room Air
--- NOTE | 2023-10-13 15:07 | Hospitalist Progress Note ---
Date of Service October 13, 2023 Assessment & Plan (1) Unable to care for self: Plan: 63-year-old male w/ PMH of dementia, heavy alcohol abuse, depression with psychotic features and catatonia, polysubstance abuse, cognitive decline since 2019 was sent in by office of aging and also his family as patient is unable to take care of himself and family also not able to take care of him. Of note, patient was admitted in April 28, 2023 with the same unable to care for self and COVID and UTI and at the time he was discharged back home on Jun 01 2023. He was difficult to find placement for. He was noted to have UTI at presentation. He is being managed for the following: #Neurocognitive disorder #Unable to care for self #history of depression Office of aging involved, complex social situation History of sexual disinhibition per 04/20/2023 reports, previously on estradiol 0.0375 patch Case management to help with placement Psych consulted - continue mirtazapine 15 qhs, abiligy 5/10mg Neuro evaled: MRI brain unremarkable, f/u Neuro in 4-6 weeks for further w/u. Obtain stat CT brain without contrast for any neurological decline Recommend outpatient neuropsychiatric testing. Recommend outpatient follow up with adult neurology in memory clinic PT/OT/SLT evals. Delirium precautions TSH wnl, B12 low nl - c/w B12 supplement 10/09. c/w thiamine. Acute cystitis POA : s/p 5 days Rocephin course DVT prophylaxis: heparin subcu Disposition: medical floor PT/OT. CM to assist. Full code Admission and Anticipated Discharge Date Admission Date: October 03, 2023 Subjective Pt was lying in bed, on RA, NAD, oriented, no pain, reports eating ok and moving bowels ok. Denies headache or dizziness. Physical Exam Physical Exam: General- Not in distress. Head- atraumatic Eyes- EOMI Neck- supple. Lungs- clear to auscultation no wheezing or crackles Heart- regular rhythm; no murmur, no gallop. Abdomen- normal bowel sounds, soft, nontender, no distension. Extremities- no pretibial edema, no erythema seen. Neuro- alert, oriented x 3; EOMI; no facial palsy; no dysarthria; moves extremities. Results & Data Results & Data Vital Signs (Past 12 Hours) Vital Signs Temp Pulse Resp BP Pulse Ox O2 Del Method 10/13/23 14:47 37.0 C 62 16 99/69 L 96 Room Air 10/13/23 07:41 36.6 C 49 L 16 101/61 98 Room Air
--- NOTE | 2023-10-14 14:11 | Discharge Summary ---
Discharge Summary Date of Service October 14, 2023 Principal Dx & Hospital Course #1 = Principal Diagnosis (1) Unable to care for self: 63-year-old male w/ PMH of dementia, heavy alcohol abuse, depression with psychotic features and catatonia, polysubstance abuse, cognitive decline since 2019 was sent in by office of aging and also his family as patient is unable to take care of himself and family also not able to take care of him. Of note, patient was admitted in April 28, 2023 with the same unable to care for self and COVID and UTI and at the time he was discharged back home on Jun 01 2023. He was difficult to find placement for. He was noted to have UTI at presentation. He is being managed for the following: #Neurocognitive disorder #Unable to care for self #history of depression Office of aging involved, complex social situation History of sexual disinhibition per 04/20/2023 reports, previously on estradiol 0.0375 patch Case management to help with placement Psych consulted - continue mirtazapine 15 qhs, abiligy 5/10mg Neuro evaled: MRI brain unremarkable, f/u Neuro in 4-6 weeks for further w/u. Obtain stat CT brain without contrast for any neurological decline Recommend outpatient neuropsychiatric testing. Recommend outpatient follow up with adult neurology in memory clinic PT/OT/SLT evals. Delirium precautions TSH wnl, B12 low nl - c/w B12 supplement 10/09. c/w thiamine. C/w Vit D supp lement Acute cystitis POA : s/p 5 days Rocephin course DVT prophylaxis: heparin subcu Disposition: Pt to be discharged this evening home with Notes For Next Care Provider Pt needs follow up with neurology in 4-6 weeks. Medication Changes From Visit MEDICATION CHANGES: Continue Aripiprazole 10mg at HS. NEW MEDICATIONS: Aripiprazole 5 mg by mouth in the morning. Mirtazapine 15mg by mouth at bedtime Vitamin D3 5000 units by mouth 1 tablet daily Vitamin B12 100 mcg by mouth daily Thiamine 100 mg by mouth daily Admission HPI Per Admitting Provider 63-year-old male with past medical history significant for dementia, history of heavy alcohol abuse, history of depression with psychotic features and catatonia, history of polysubstance abuse ,history of cognitive decline since 2019 was sent in by office of aging and also his family as patient is unable to take care of himself and family also not able to take care of him. Patient also found to have UTI. Patient was admitted in April 28, 2023 with the same unable to care for self and COVID and UTI and at the time he was discharged back home On jun 01 2023. Looks like previously case management tried to place him but could not find facility to accept him. patient currently alert and awake. Can tell his name. Can tell that he is in the hospital. Tells this is fifth month and year 22. Does not know why he is in the hospital. States he lives with his and his family. States ambulates without any support. Denies any headache. Denies dizziness. States vision is okay. Denies runny nose or sore throat or cough. Denies any fevers. No chest pain or shortness of breath. No nausea. No abdominal pain. Normal bowel and bladder movements. Currently resting comfortably and hemodynamically stable. Patient seem to be dishevelled when he came to the ER. past medical history As mentioned above.. Past surgical history. Knee surgery. Social history. Patient states he quit smoking 10 years ago. States he quit alcohol 5 years ago. As per [facility] history of chronic alcohol abuse used to drink drink 2-3 cases of 30 pack beer since and stopped in early 2018. History of marijuana abuse as per [facility]. family history. Father had dementia. Admission Exam Per Admitting Provider General- Not in distress. Head- atraumatic Eyes- EOMI Neck- supple. Lungs- clear to auscultation no wheezing or crackles Heart- regular rhythm; no murmur, no gallop. Abdomen- normal bowel sounds, soft, nontender, no distension. Extremities- no pretibial edema, no erythema seen. Neuro- alert, oriented x 3; EOMI; no facial palsy; no dysarthria; moves extremities. Discharge Exam Gen: WD/WN, NAD, A&O x3 to basics, sitting up in bed HEENT: Normocephalic, atraumatic, conjunctivae moist, sclerae anicteric, mucous membranes moist. Lung: Clear to Auscultation bilaterally, no wheezes/rales/rhonchi Heart: Regular rate, regular rhythm, no murmurs, rubs, or gallops Abdomen: Soft, NT, ND +BS x 4 Extremities: No edema Skin: Warm, no rash, negative turgor. Updated Medication List Medication Instructions Recorded Confirmed Type aripiprazole 10 mg tablet 10 mg PO HS 30 days #30 tabs 05/24/23 10/10/23 Rx aripiprazole 5 mg tablet (Abilify) 5 mg PO QAM #30 tabs 10/14/23 Rx cholecalciferol (vitamin D3) 125 125 mcg PO QAM #30 tabs 10/14/23 Rx mcg (5,000 unit) tablet cyanocobalamin (vitamin B-12) 100 100 mcg PO QAM #30 tabs 10/14/23 Rx mcg tablet (Vitamin B-12) mirtazapine 15 mg tablet 15 mg PO HS #30 tabs 10/14/23 Rx thiamine HCl (vitamin B1) 100 mg 100 mg PO QAM #30 tabs 10/14/23 Rx tablet Hospital Stay Data Consultations 10/03/23 22:11 ED Decision to Admit Stat 10/04/23 09:02 Consult Psychiatry Routine 10/08/23 10:30 Consult Neurology Routine Diagnostic Imagining Performed Brain MRI 10/08/23 19:03 Exam(s): MRI HEAD W/WO Contrast IV Amt: 8CC GADAVIST EXAM: MR Head Without and With Intravenous Contrast CLINICAL HISTORY: Reason for exam: neurocognitive decline; frontotemporal dementia?. TECHNIQUE: Magnetic resonance images of the head/brain without and with intravenous contrast in multiple planes. CONTRAST: Patient received 8CC GADAVIST of IV contrast COMPARISON: No relevant prior studies available. FINDINGS: Artifacts: No hemorrhage or susceptibility artifact is seen. Brain: The medial temporal lobe structures appear normal. The brain parenchymal volume appears within normal limits for age. No significant atrophy. No hemorrhage. No areas of diffusion restriction are seen to indicate acute stroke. There is no mass lesion or midline shift. Brainstem: The posterior fossa and cerebellopontine angles are unremarkable. Ventricles: Unremarkable. No ventriculomegaly. Bones/joints: Unremarkable. No acute fracture. Soft tissues: Unremarkable. No areas of abnormal contrast enhancement are identified. Sinuses: Unremarkable as visualized. No acute sinusitis. Mastoid air cells: Unremarkable as visualized. No mastoid effusion. Orbits: Unremarkable as visualized. IMPRESSION: No acute findings in the head/brain. Electronically signed by: Patricio Mayfield MD 10/08/23 20:52 PM Pending Results Patient Have Any Pending Studies at Discharge: No Discharge Instructions Given to Patient (Per Discharging Provider) MEDICATION CHANGES: Continue Aripiprazole 10mg at HS. NEW MEDICATIONS: Aripiprazole 5 mg by mouth in the morning. Mirtazapine 15mg by mouth at bedtime Vitamin D3 5000 units by mouth 1 tablet daily Vitamin B12 100 mcg by mouth daily Thiamine 100 mg by mouth daily PENDING TEST RESULTS: None RECOMMENDATIONS FOR FOLLOW-UP: Please follow up with Primary Care Provider upon discharge. You were diagnosed with a Urinary Tract Infection and treated with IV antibiotics. Your vitamin B12 was borderline low and therefore it is recommend you take a daily supplement You were seen and evaluated by psychiatry who recommended start Mirtazapine 15mg OTHER INSTRUCTIONS: Seek medical attention if you have: * temperature above 101 * chest pain or trouble breathing * abdominal pain, nausea, vomiting * diarrhea, dark stools or bloody stools * any unanswered questions or concerns Call 911 if symptoms are severe. Please take good care of yourself. It has been a pleasure taking care of you. Please take care of yourself. If you have any questions regarding your recent hospitalization please contact [facility] and request Mary Kay Anne @ [phone]. Total Time Total Time Spent Total Time Spent (In Minutes): 45 minutes Supervising Physician Co-Signing Physician Notes Patient was seen and examined at bedside. Per outsole caser, patient's agreeable to take patient home. Patient is being discharged. Patient is hemodynamically stable. Patient does not have SI/HI. Patient to follow-up with outpatient neurology and also patient to get outpatient neuropsychiatric testing. Patient to continue to follow-up with his outpatient psychiatry. On examination, patient on room air, heart/lung/abdomen examination WNL. Rest of the examination as above. I have seen and examined the patient and have discussed the case with the provider above. I agree with the assessment and plan as stated.
== END 2023-10-14 17:22 | disposition home or self-care (01) | DRG 690 ==
LOC: ED 13:48 → EDINP 23:41 → SUATTDRO 23:41 → 3W 10-04 02:47

== ENCOUNTER 2023-10-29 12:46 | Inpatient (IN) ==
--- NOTE | 2023-10-29 13:52 | Emergency Department Note ---
Impression & Plan Unable to care for self, Acute UTI, Dementia ED Provider Note NAME: FIORDALIZA NAZARIO AGE: 63 SEX: M : 1960 ARRIVES VIA: Ambulance INFORMANT: Patient, ED PROVIDER(S): Zenon Jensen MD CHIEF COMPLAINT: Combative behavior, dementia MEDICAL DECISION MAKING: Patient presented due to concern for combative behavior and inability to be taken care of by either himself or family at home. Patient did receive IM Versed prior to presentation. BSG was obtained which was 97. IV was established and blood work was obtained along with CT of the head. Patient was reassessed and was more awake and alert but not conversational at the bedside. Patient does move all 4 extremities. Patient initially was not arousable to tactile or verbal stimuli but this is likely secondary to the patient's IM Versed administration prior to arrival. Unsure as to the patient's baseline patient is not combative at this time. Patient was ordered IV fluids. Blood work shows a normal white count hemoglobin and platelet count kidney function is unremarkable TSH normal. Alcohol negative. Chest x-ray negative and the patient CT head negative. Given the patient's inability to care did speak with the on-call hospital service Juan Mayfield PA-C and the patient was admitted by Dr. Quach. Of note the patient's urinalysis was noted to have likely UTI after speaking with the admitting hospitalist team. Admitting team did order IV Rocephin. Discussion w/ other healthcare providers: Vanda Mayfield PA-C and Dr. Quach Prior /Outside records reviewed: I reviewed a discharge summary from [facility] from November 10, 2023. Patient with a known history of dementia alcohol abuse depression psychotic features polysubstance abuse cognitive decline since 2019 referred from the office of aging and the patient was unable to be cared for by either himself or family. Difficult to obtain placement for the patient. None Differential diagnosis: Infection, dehydration, metabolic abnormality, hypo/hyperglycemia, electrolyte imbalance, anemia, UTI, pneumonia, thyroid dysfunction among others were considered. Diagnostics, as interpreted by me: ECG: Normal sinus rhythm, rate of 72, normal intervals, normal axis no ST elevations or TWI. Cardiac monitoring: An order was placed for continuous cardiac monitoring. The monitor shows a rate of 75 with sinus rhythm. Patient was placed on pulse oximetry Medical decision rules: None Imaging studies: I informally interpreted the patient's chest x-ray does not show obvious pneumonia or pneumothorax with formal report to follow. HPI: Patient presents from home reportedly history of dementia. The patient was reportedly defecating in his pants and then shaking it out on the lawn. Patient reportedly was combative for EMS and did receive IM Versed prior to arrival. BSG was not checked prior to arrival. Family reports that they are no longer able to take care of the patient. History is limited given the patient's recent Versed administration. PAST MEDICAL HISTORY: See Below PAST SURGICAL HISTORY: See Below SOCIAL HISTORY: See Below HOME MEDICATIONS: See Below ALLERGIES: See Below VITALS: See Below PHYSICAL EXAMINATION: GENERAL: NAD, non-toxic. EYE EXAM: Normal conjunctiva. PERRL, no anisocoria and EOM's grossly intact w/o pain. OROPHARYNX: Moist mucus membranes, grossly normal dentition. NECK: Trachea midline, no stridor. Supple, no nuchal rigidity, no adenopathy, non-tender. No signs of meningismus. FROM of the neck with good chin to chest and neck extension. LUNGS: Clear to auscultation. Normal chest wall mechanics. HEART: NSR, no MRG. ABDOMEN: Abdomen soft, non-tender, no masses, no rebound or guarding. BACK: No CVA TTP. SKIN: No rashes and no bruising. No bruising noted to the back. UPPER EXTREMITIES: Upper extremities are grossly normal. LOWER EXTREMITIES: Grossly normal, no edema. NEURO EXAM: Sleeping does not respond to tactile or verbal stimuli at this time. 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: No Beliefs That Will Affect Care: None marital status: Current Living Situation: Spouse current occupational status: employed Feels Safe at Home: Yes Assistive Devices: None Allergies Allergies Allergy/AdvReac Type Severity Reaction Status Date / Time No Known Allergies Allergy NONE Verified 10/29/23 16:27 Home Meds Previous Rx's Medication Instructions Recorded aripiprazole 10 mg tablet 10 mg PO HS 30 days #30 tabs 05/24/23 aripiprazole 5 mg tablet (Abilify) 5 mg PO QAM #30 tabs 10/14/23 cholecalciferol (vitamin D3) 125 125 mcg PO QAM #30 tabs 10/14/23 mcg (5,000 unit) tablet cyanocobalamin (vitamin B-12) 100 100 mcg PO QAM #30 tabs 10/14/23 mcg tablet (Vitamin B-12) mirtazapine 15 mg tablet 15 mg PO HS #30 tabs 10/14/23 thiamine HCl (vitamin B1) 100 mg 100 mg PO QAM #30 tabs 10/14/23 tablet Results & Data (ED) Vital Signs Vital Signs - 24 hr 10/29/23 12:55 10/29/23 13:10 10/29/23 13:44 Temperature 37 C Temperature Source Oral Pulse Rate 74 75 Pulse Rate from SpO2 Sensor Pulse Rhythm Regular Pulse Strength Normal Respiratory Rate 19 Respiratory Effort / Characteristics Non-Labored Spontaneous Respiratory Depth Normal Respiratory Pattern Regular Blood Pressure 118/85 Blood Pressure Mean 96 Pulse Oximetry 92 95 Oxygen Delivery Method Room Air Room Air Sepsis Recent Fever Within 48 Hours No Sepsis New/Unexplained Change in Mental Status No Sepsis Action Taken by Nursing No Action Required 10/29/23 13:57 10/29/23 14:01 Temperature Temperature Source Pulse Rate 75 66 Pulse Rate from SpO2 Sensor 64 Pulse Rhythm Regular Pulse Strength Respiratory Rate 19 18 Respiratory Effort / Characteristics Respiratory Depth Respiratory Pattern Blood Pressure 101/64 Blood Pressure Mean 74 Pulse Oximetry 95 90 Oxygen Delivery Method Room Air Sepsis Recent Fever Within 48 Hours Sepsis New/Unexplained Change in Mental Status Sepsis Action Taken by Longterm Medications Current Medication List: was personally reviewed by me Laboratory Data Attestation: I reviewed the patient's lab results. 10/30/23 05:32 10/30/23 05:32 Lab Results 10/29/23 10/29/23 10/29/23 Range/Units 13:00 13:57 15:17 WBC 5.17 (4.8-10.8) K/ul RBC 5.10 (4.70-6.10) M/uL Hgb 15.0 (14.0-18.0) g/dl Hct 44.9 (42.0-52.0) % MCV 88.0 (80.0-100.0) fL MCH 29.4 (25.0-34.0) pg MCHC 33.4 (32.0-36.0) g/dL RDW Std Deviation 42.6 (36.4-46.3) fL RDW Coeff of Bhavesh 13.2 (11.5-14.5) % Plt Count 188 (130-400) K/uL MPV 9.9 (9.4-12.4) fL Immature Gran % (Auto) 0.2 % Neut % (Auto) 56.5 % Lymph % (Auto) 34.4 % [place] % (Auto) 6.6 % Eos % (Auto) 2.1 % Baso % (Auto) 0.2 % Neut # (Auto) 2.92 (1.40-6.50) K/uL Lymph # (Auto) 1.78 (1.20-3.40) K/uL [place] # (Auto) 0.34 (0.11-0.59) K/uL Eos # (Auto) 0.11 (0.00-0.50) K/uL Baso # (Auto) 0.01 (0.00-0.20) K/uL Immature Gran # (Auto) 0.01 (0.01-0.20) K/uL Sodium 138 (136-145) mmol/L Potassium 4.0 (3.5-5.1) mmol/L Chloride 103 (98-107) mmol/L Carbon Dioxide 29 (21-32) mmol/L Anion Gap 6 (3-11) BUN 14 (6-23) mg/dl Creatinine 0.90 (0.6-1.4) mg/dl Est Cr Clr Drug Dosing 84.5 ml/min Est GFR ( Amer) 103.5 ml/min Est GFR (Non-Af Amer) 89.3 ml/min BUN/Creatinine Ratio 15.6 (10-20) Glucose 95 (70-99(Fasting)) mg/dl POC Glucose 95 (70-99) mg/dl Calcium 9.8 (8.6-10.3) mg/dl Magnesium 1.9 (1.7-2.4) mg/dl Total Bilirubin 0.6 (0.2-1.0) mg/dl AST 25 (13-39) U/L ALT 20 (7-52) U/L Alkaline Phosphatase 35 (34-104) U/L Total Protein 7.2 (6.0-8.3) gm/dl Albumin 4.2 (3.4-5.0) gm/dl Globulin 3.0 (2.5-4.0) gm/dl Albumin/Globulin Ratio 1.4 (0.9-2) TSH 2.781 (0.300-4.500) uIu/ml Urine Color Yellow Urine Appearance Clear (Clear) Urine pH 7.5 (4.5-7.5) Ur Specific [place] 1.010 (1.000-1.030) Urine Protein Negative (Negative) Urine Glucose (UA) Negative (Negative) Urine Ketones Negative (Negative) Urine Blood Negative (Negative) Urine Nitrite Positive A (Negative) Urine Bilirubin Negative (Negative) Urine Urobilinogen Negative (Negative) Ur Leukocyte Esterase 3+ H (Negative) Urine WBC (Auto) 11-20 H (0-5) /hpf Urine RBC (Auto) 0-2 (0-2) /hpf U Hyaline Cast (Auto) 0-2 (0-2) /lpf U Epithel Cells (Auto) 0-2 (0-2) /hpf Urine Bacteria (Auto) 4+ H (None Seen) Urine Opiates Screen Neg (Neg) Ur Methadone, Qual Neg (Neg) Urine Fentanyl Screen Neg (Neg) Urine Barbiturates Neg (Neg) Ur Phencyclidine (PCP) Neg (Neg) U Amphetamin/Meth Scrn Neg (Neg) MDMA (Ecstasy) Screen Neg (Neg) U Benzodiazepines Scrn Pos H (Neg) Ur Cocaine Metabolite Neg (Neg) U Marijuana (THC) Screen Neg (Neg) Ethyl Alcohol mg/dL < 10.0 (<10.0) mg/dl Administered Medications Aripiprazole (Aripiprazole 10 Mg Tab) 10 mg PO HS MICHEL Stop: 11/28/23 20:59 Last Admin: 10/29/23 20:53 Dose: 10 mg Documented By: TKB Aripiprazole (Aripiprazole 5 Mg Tab) 5 mg PO [facility] Stop: 11/29/23 08:59 Last Admin: 10/30/23 07:46 Dose: 5 mg Documented By: CRISPIN Cyanocobalamin (Cyanocobalamin (B-12) 100 Mcg Tablet) [facility]: 11/29/23 08:59 Last Admin: 10/30/23 07:46 Dose: 100 mcg Documented By: CRISPIN Enoxaparin Sodium (Enoxaparin Inj 40 Mg/0.4 Ml Syr) 40 mg SQ Q24H [facility] Stop: 11/28/23 18:29 Last Admin: 10/29/23 18:28 Dose: 40 mg Documented By: SILVINO Ceftriaxone Sodium (Rocephin) 2,000 mg in 50 mls @ 100 mls/hr IV Q24H [facility] Stop: 11/08/23 18:29 Last Infusion: 10/29/23 20:25 Dose: Infused Documented By: Admin: 10/29/23 18:28 Dose: 100 mls/hr Documented By: SILVINO Mirtazapine (Mirtazapine Tab 15 Mg Tab) 15 mg PO HS [facility] Stop: 11/28/23 20:59 Last Admin: 10/29/23 20:53 Dose: 15 mg Documented By: ANA Thiamine HCl (Thiamine Hcl 100 Mg Tab) [facility] [place] Stop: 11/29/23 08:59 Last Admin: 10/30/23 07:46 Dose: 100 mg Documented By: CRISPIN Vitamin D (Cholecalciferol 125 Mcg (5,000 Units) Tab) [facility] [place] Stop: 11/29/23 08:59 Last Admin: 10/30/23 07:46 Dose: 125 mcg Documented By: CRISPIN Discontinued Medications Sodium Chloride (Nss) 1,000 mls @ 999 mls/hr IV .Q1H1M [facility] Stop: 10/29/23 15:00 Last Infusion: 10/29/23 15:37 Dose: Infused Documented By: Admin: 10/29/23 14:00 Dose: 999 mls/hr Documented By: AFUA Imaging Data Radiologist's Impression: Chest X-Ray 10/29/23 13:57 XR chest 1V portable CLINICAL HISTORY: weakness TECHNIQUE: Single frontal radiograph of the chest was obtained. Comparison: None available at the time of this dictation. FINDINGS: No lines and tubes are seen. The cardiomediastinal silhouette is normal. The lungs are clear. No evidence of pleural effusion or pneumothorax. IMPRESSION: No acute chest disease. ACT 112: Negative or not required by law. Electronically signed by: Georgi Norris M.D. 10/29/2023 2:[address] 10/29/23 13:57 CT SCAN OF THE BRAIN WITHOUT IV CONTRAST CLINICAL HISTORY: Change in mental status. Combative behavior. COMPARISON STUDY: CT of the brain dated 04/28/2023. MRI of the brain dated 10/08/2023. TECHNIQUE: Unenhanced axial CT scan of the brain is performed from the vertex to the skull base. A dose lowering technique was utilized adhering to the principles of ALARA. CT DOSE: 703.85 mGy.cm FINDINGS: Brain parenchyma: The brain parenchyma is normal in appearance. There is no hemorrhage, mass effect, or evidence of acute territorial ischemia by CT criteria. Song-white matter differentiation is preserved. No extra-axial fluid collection is seen. Ventricles, sulci, cisterns: Normal in configuration. Intracranial vasculature: The visualized intracranial vasculature at the skull base is normal in appearance. Calvarium: Unremarkable. Sinuses and mastoids: The visualized paranasal sinuses are clear. The mastoid air cells are well pneumatized. Orbits: The bony orbits are grossly intact. IMPRESSION: No acute intracranial abnormality. ACT 112: Negative or not required by law. Electronically signed by: Felice Granados M.D. 10/29/2023 2:30 PM Discharge Plan Visit Data Chief Complaint: Altered Mental Status Stated Complaint: FAILURE TO THRIVE ED Provider: Zenon Jensen Discharge Problem: Unable to care for self, Acute UTI, Dementia Patient Disposition: Admitted As Inpatient Discharge Instructions Interventions: ED Discharge Assessment Last Done: 10/29/23 20:29 Discharge Problem: Dementia Qualifiers: Dementia type: unspecified type Dementia severity: unspecified severity D ementia behavioral or psychological symptom: unspecified whether behavioral, psychotic, or mood disturbance or anxiety Qualified Code(s): F03.90 - Unspecified dementia, unspecified severity, without behavioral disturbance, psychotic disturbance, mood disturbance, and anxiety
[2023-10-29] MEDS: SODIUM CHLORIDE 0.9% 1,000 ML IV SCH (14:00)
[2023-10-29 14:02] LABS: Basophils # (auto) 0.01 K/uL (0.00-0.20); Basophils % (auto) 0.2 %; Eosinophils # (auto) 0.11 K/uL (0.00-0.50); Eosinophils % (auto) 2.1 %; Hematocrit (blood only) 44.9 % (42.0-52.0); Immature Granulocytes # (auto) 0.01 K/uL (0.01-0.20); Immature Granulocytes % (auto) 0.2 %; Lymphocytes # (auto) 1.78 K/uL (1.20-3.40); Lymphocytes % (auto) 34.4 %; Mean Corpuscular Hemoglobin 29.4 pg (25.0-34.0); Mean Corpuscular Hgb Conc 33.4 g/dL (32.0-36.0); Mean Platelet Volume 9.9 fL (9.4-12.4); Monocytes # (auto) 0.34 K/uL (0.11-0.59); Monocytes % (auto) 6.6 %; Neutrophils # (auto) 2.92 K/uL (1.40-6.50); Neutrophils % (auto) 56.5 %; Platelet Count 188 K/uL (130-400); RDW Coefficient of Variation 13.2 % (11.5-14.5); RDW Standard Deviation 42.6 fL (36.4-46.3); White Blood Count 5.17 K/ul (4.8-10.8)
[2023-10-29 14:19] LABS: Albumin Globulin Ratio 1.4 (0.9-2); Albumin Level 4.2 gm/dl (3.4-5.0); BUN Creatinine Ratio 15.6 (10-20); Bilirubin,Total 0.6 mg/dl (0.2-1.0); Calcium 9.8 mg/dl (8.6-10.3); Creatinine Clr Calc Pharmacy 84.5 ml/min; Est GFR (African American) 103.5 ml/min; Est GFR (Non-African American) 89.3 ml/min; Total Protein 7.2 gm/dl (6.0-8.3)
--- NOTE | 2023-10-29 14:31 | CT Scan Report ---
CT SCAN OF THE BRAIN WITHOUT IV CONTRAST CLINICAL HISTORY: Change in mental status. Combative behavior. COMPARISON STUDY: CT of the brain dated 04/28/2023. MRI of the brain dated 10/08/2023. TECHNIQUE: Unenhanced axial CT scan of the brain is performed from the vertex to the skull base. A d ose lowering technique was utilized adhering to the principles of ALARA. CT DOSE: 703.85 mGy.cm FINDINGS: Brain parenchyma: The brain parenchyma is normal in appearance. There is no hemorrhage, mass effect, or evidence of acute territorial ischemia by CT criteria. Song-white matter differentiation is preser justice. No extra-axial fluid collection is seen. Ventricles, sulci, cisterns: Normal in configuration. Intracranial vasculature: The visualized intracranial vasculature at the skull base is normal in appe arance. Calvarium: Unremarkable. Sinuses and mastoids: The visualized paranasal sinuses are clear. The mastoid air cells are well pneu matized. Orbits: The bony orbits are grossly intact. IMPRESSION: No acute intracranial abnormality. ACT 112: Negative or not required by law. Electronically signed by: Felice Granados M.D. 10/29/2023 2:30 PM
[2023-10-29 14:33] LABS: Thyroid Stimulating Hormone 2.781 uIu/ml (0.300-4.500)
--- NOTE | 2023-10-29 14:39 | XRay Report ---
XR chest 1V portable CLINICAL HISTORY: weakness TECHNIQUE: Single frontal radiograph of the chest was obtained. Comparison: None available at the time of this dictation. FINDINGS: No lines and tubes are seen. The cardiomediastinal silhouette is normal. The lungs are clear. No evid ence of pleural effusion or pneumothorax. IMPRESSION: No acute chest disease. ACT 112: Negative or not required by law. Electronically signed by: Georgi Norris M.D. 10/29/2023 2:38 PM
[2023-10-29 14:44] LABS: Magnesium 1.9 mg/dl (1.7-2.4)
[2023-10-29 15:43] LABS: Appearance Urine Clear (Clear); Bacteria Urine Automated 4+ (None Seen); Bilirubin Urine Negative (Negative); Blood Urine Negative (Negative); Cast Urine Automated 0-2 /lpf (0-2); Color Urine Yellow; Epithelial Cell Urine Auto 0-2 /hpf (0-2); Glucose Urine UA Negative (Negative); Ketones Urine Negative (Negative); Leukocyte Esterase Urine 3+ (Negative); Nitrite Urine Positive (Negative); Protein Urine Negative (Negative); RBC Urine Automated 0-2 /hpf (0-2); Urobilinogen Urine Negative (Negative); pH Urine 7.5 (4.5-7.5)
--- NOTE | 2023-10-29 15:46 | Electrocardiogram Report ---
Test Reason : Blood Pressure : / mmHG Vent. Rate : 072 BPM Atrial Rate : 072 BPM P-R Int : 162 ms QRS Dur : 098 ms QT Int : 392 ms P-R-T Axes : 028 -01 026 degrees QTc Int : 429 ms Normal sinus rhythm Normal ECG When compared with ECG of 28-APR-2023 16:52, No significant change was found Confirmed by Alex Carty ([id number]) on 10/29/2023 3:46:40 PM Referred By: Confirmed By:Alex Carty
--- NOTE | 2023-10-29 15:52 | History & Physical Report ---
Date of Service October 29, 2023 Assessment & Plan (1) Unable to care for self: (2) Dementia: (3) Neurocognitive disorder: (4) Depression: Plan This is a 63-year-old male with PMH of dementia, heavy alcohol abuse, depression with psychotic features and catatonia, polysubstance abuse, cognitive decline since 2019 presenting with family stating they can no longer care for him at home. History of combative behavior and dementia, recently admitted to our service from 10/02-10/13 awaiting placement and was ultimately discharged home by request of patient's . Was seen by psychiatry during previous admission and was started on aripiprazole 5 mg in the morning (in addition to continuing aripiprazole 10 mg at bedtime, which she had previously been on), as well as starting mirtazapine 15 mg at bedtime as well as vitamin D3, B12 and thiamine supplementations. Reportedly brought to the ED by with request for placement as family unable to provide care at home (no family at bedside, left a voicemail and awaiting callback). Neurocognitive disorder Unable to care for self History of depression Office of aging involved, complex social situation History of sexual disinhibition per 04/20/2023 reports, previously on estradiol 0.0375 patch Case management to help with placement Psych consulted on previous admission - continue Abilify 5mg daily, 10mg HS, Mirtazapine 15 HS Evaluated by neuro on previous admission - MRI brain unremarkable, f/u Neuro in 4-6 weeks for further w/u. Recommend outpatient neuropsychiatric testing and follow up with adult neurology in memory clinic (no show for 10/16 appt) PT/OT evaluations for placement Delirium precautions Continue B12, thiamine and vitamin D supplements Abnormal UA History of E coli on previous admission, treated UA today abnormal Starting on empiric Rocephin, follow culture Will attempt to verify medications and interval update from over the phone this evening. DVT prophylaxis: SQ lovenox Code status: FULL PCP: JUAN JOSE Bolden Dispo: admitted to med/surg awaiting placement Patient seen in collaboration with Dr. Quach. Please see addendum. I spent a total of 75 minutes coordinating, documenting, and providing care for this patient excluding time spent in the performance of separately billed services. History of Present Illness Chief Complaint: family unable to care for, requesting placement Primary Care Provider: NO PCP This is a 63-year-old male with PMH of dementia, heavy alcohol abuse, depression with psychotic features and catatonia, polysubstance abuse, cognitive decline since 2019 presenting with family stating they can no longer care for him at home. History of combative behavior and demenia, recently admitted to our service from 10/02-10/13 awaiting placement and was ultimately discharged home by request of patient's . Was seen by psychiatry during previous admission and was started on aripiprazole 5 mg in the morning (in addition to continuing aripiprazole 10 mg at bedtime, which she had previously been on), as well as starting mirtazapine 15 mg at bedtime as well as vitamin D3, B12 and thiamine supplementations. Return to the ED with request for placement as family unable to provide care. In ED, patient is alert and oriented to self and place. Not to time or situation. Denies any CP, SOB or abdominal pain. Remainder of ROS unobtainable 2/2 cognitive decline. Allergies Allergy/AdvReac Type Severity Reaction Status Date / Time No Known Allergies Allergy NONE Verified 10/29/23 16:27 Home Medications Medication Instructions Recorded Confirmed Type aripiprazole 10 mg tablet 10 mg PO HS 30 days #30 tabs 05/24/23 10/29/23 Rx aripiprazole 5 mg tablet (Abilify) 5 mg PO QAM #30 tabs 10/14/23 10/29/23 Rx cholecalciferol (vitamin D3) 125 125 mcg PO QAM #30 tabs 10/14/23 10/29/23 Rx mcg (5,000 unit) tablet cyanocobalamin (vitamin B-12) 100 100 mcg PO QAM #30 tabs 10/14/23 10/29/23 Rx mcg tablet (Vitamin B-12) mirtazapine 15 mg tablet 15 mg PO HS #30 tabs 10/14/23 10/29/23 Rx thiamine HCl (vitamin B1) 100 mg 100 mg PO QAM #30 tabs 10/14/23 10/29/23 Rx tablet Past Med/Surg History Problem List Unable to care for self (Acute) COVID (Acute) Delirium Acute UTI (Acute) Dementia (Acute) Neurocognitive disorder (Acute) Psychosis Depression (Acute) H/O knee surgery Arthritis (Chronic) Family History Other Family history non-contributory Social History Smoking Status: Former smoker Tobacco Type: Cigarettes Hx Alcohol Use: No Hx Substance Use: No Preferred Language: Citizen Of [place] Communication Ability: Effective Full Stack Engineer Required: No Beliefs That Will Affect Care: None marital status: Current Living Situation: Spouse current occupational status: employed Feels Safe at Home: Yes Assistive Devices: None Review of Systems Review of Systems: Unobtainable due to cognitive status Physical Exam Physical Exam: General Appearance: WD/WN, vitals as above, NAD, sitting up in bed, pleasant, demented Head: normocephalic, atraumatic Eyes: normal inspection, PERRL, conjunctivae normal, anicteric sclerae ENT: external ear and nose normal, oropharynx normal Neck: normal visual inspection, trachea midline, no thyromegaly Respiratory: normal respiratory effort, lungs clear to auscultation, no wheeze, rales, rhonchi. No accessory muscle use Cardiovascular: regular rate, rhythm, no murmur, normal peripheral pulses, no BLE edema. Vessels: no JVD Chest: normal inspection of chest Abdomen/GI: normal bowel sounds, soft, nontender, no hepatosplenomegaly Extremities/Musculoskeletal: no cyanosis or clubbing, extremities motor strength 5/5 Neurologic: PERRL, EOMI, accommodation nl, no face palsy, no dysarthria, CN's II-XI intact bilaterally and moves all extremities Psychiatric: A+Ox person and place (baseline), flat affect Skin: no rashes, normal color, warm/dry Results & Data Results & Data Vital Signs (Past 12 Hours) Vital Signs Temp Pulse Resp BP Pulse Ox O2 Del Method 10/29/23 14:01 66 18 101/64 90 10/29/23 13:57 75 19 95 Room Air 10/29/23 13:44 95 Room Air 10/29/23 13:10 75 10/29/23 12:55 37 C 74 19 118/85 92 Room Air Laboratory Results Short CBC 10/29/23 Range/Units 13:00 WBC 5.17 (4.8-10.8) K/ul Hgb 15.0 (14.0-18.0) g/dl Hct 44.9 (42.0-52.0) % Plt Count 188 (130-400) K/uL BMP 10/29/23 13:00 Sodium 138 Potassium 4.0 Chloride 103 Carbon Dioxide 29 BUN 14 Creatinine 0.90 Glucose 95 Calcium 9.8 Liver Function 10/29/23 Range/Units 13:00 Total Bilirubin 0.6 (0.2-1.0) mg/dl AST 25 (13-39) U/L ALT 20 (7-52) U/L Alkaline Phosphatase 35 (34-104) U/L Albumin 4.2 (3.4-5.0) gm/dl Urine 10/29/23 Range/Units 15:17 Urine Color Yellow Urine Appearance Clear (Clear) Urine pH 7.5 (4.5-7.5) Ur Specific [place] 1.010 (1.000-1.030) Urine Protein Negative (Negative) Urine Glucose (UA) Negative (Negative) Diagnostic Findings Chest X-Ray 10/29/23 13:57 XR chest 1V portable CLINICAL HISTORY: weakness TECHNIQUE: Single frontal radiograph of the chest was obtained. Comparison: None available at the time of this dictation. FINDINGS: No lines and tubes are seen. The cardiomediastinal silhouette is normal. The lungs are clear. No evidence of pleural effusion or pneumothorax. IMPRESSION: No acute chest disease. ACT 112: Negative or not required by law. Electronically signed by: Georgi Norris M.D. 10/29/2023 2:[address] 10/29/23 13:57 CT SCAN OF THE BRAIN WITHOUT IV CONTRAST CLINICAL HISTORY: Change in mental status. Combative behavior. COMPARISON STUDY: CT of the brain dated 04/28/2023. MRI of the brain dated 10/08/2023. TECHNIQUE: Unenhanced axial CT scan of the brain is performed from the vertex to the skull base. A dose lowering technique was utilized adhering to the principles of ALARA. CT DOSE: 703.85 mGy.cm FINDINGS: Brain parenchyma: The brain parenchyma is normal in appearance. There is no hemorrhage, mass effect, or evidence of acute territorial ischemia by CT criteria. Song-white matter differentiation is preserved. No extra-axial fluid collection is seen. Ventricles, sulci, cisterns: Normal in configuration. Intracranial vasculature: The visualized intracranial vasculature at the skull base is normal in appearance. Calvarium: Unremarkable. Sinuses and mastoids: The visualized paranasal sinuses are clear. The mastoid air cells are well pneumatized. Orbits: The bony orbits are grossly intact. IMPRESSION: No acute intracranial abnormality. ACT 112: Negative or not required by law. Electronically signed by: Felice Granados M.D. 10/29/2023 2:30 PM Code Status & VTE Plan VTE Prophylaxis Plan VTE Prophylaxis will be ordered: Yes Supervising Physician Co-Signing Physician Notes 63-year-old male with PMH of dementia, heavy alcohol abuse, depression with psychotic features and catatonia, polysubstance abuse, cognitive decline since 2019 presented with family stating that they can no longer take care of him at home. He is noted to have UTI at urine analysis at presentation. No further agitation in the ED per RN. Follow urine culture, Rocephin daily. Continue home medications, if with further agitation, consider psychiatry involvement. On examination: GENERAL: Alert and oriented x3. NAD, on RA. appears unkempt/ill. HEENT: No pallor, no icterus. Pupils equal, round and reactive to light. Oral mucosa moist. NECK: No JVD, no neck masses. HEART: S1 and S2 heard. Regular rate and rhythm. No murmur, no gallop. RESPIRATORY SYSTEM: Normal AP diameter. No accessory muscle use. No wheezing, no crackles. ABDOMEN: Soft, bowel sounds present, nontender, no distention. CENTRAL NERVOUS SYSTEM: No facial droop. Speech is clear. Obeys simple commands. Moves extremities. EXTREMITIES: No edema, no erythema seen. I have seen and examined the patient and have discussed the case with the renu condon above. I agree with the assessment and plan as stated. (2) Dementia Dementia behavioral or psychological symptom: with agitation Dementia severity: unspecified severity Dementia type: unspecified type Qualified Code(s): F03.911 - Unspecified dementia, unspecified severity, with agitation (4) Depression Depression Type: unspecified Qualified Code(s): F32.A - Depression, unspecified
[2023-10-29 16:20] LABS: Amphetamines+Metham, Urine Neg (Neg); Barbiturates, Urine Neg (Neg); Benzodiazepine, Urine Pos (Neg); Cocaine, Urine Neg (Neg); Fentanyl, Urine Neg (Neg); MDMA (Ecstacy), Urine Neg (Neg); Marijuana, Urine Neg (Neg); Methadone, Urine Neg (Neg); Opiate, Urine Neg (Neg); Phencyclidine, Urine Neg (Neg)
[2023-10-29] MEDS ORDERED: POLYETHYLENE (MIRALAX) 17 GM PACK PO PRN (18:08)
[2023-10-29] MEDS ORDERED: ACETAMINOPHEN 325 MG TAB PO PRN (18:08)
[2023-10-29] MEDS ORDERED: ONDANSETRON INJ 2 MG/ML 2 ML VIAL IV PRN (18:08)
[2023-10-29] MEDS: cefTRIAXone SODIUM 2,000 MG/50 ML BAG IV SCH (18:28)
[2023-10-29] MEDS: ENOXAPARIN INJ 40 MG/0.4 ML SYR SQ SCH (18:28)
[2023-10-29] MEDS: ARIPiprazole 10 MG TAB PO SCH (20:53)
[2023-10-29] MEDS: MIRTAZAPINE TAB 15 MG TAB PO SCH (20:53)
[2023-10-30 06:02] LABS: Hematocrit (blood only) 41.6 % (42.0-52.0); Hemoglobin 13.9 g/dl (14.0-18.0); Mean Corpuscular Hemoglobin 29.4 pg (25.0-34.0); Mean Corpuscular Hgb Conc 33.4 g/dL (32.0-36.0); Mean Corpuscular Volume 87.9 fL (80.0-100.0); Mean Platelet Volume 9.5 fL (9.4-12.4); Platelet Count 174 K/uL (130-400); RDW Coefficient of Variation 13.1 % (11.5-14.5); RDW Standard Deviation 42.6 fL (36.4-46.3); Red Blood Count 4.73 M/uL (4.70-6.10); White Blood Count 6.42 K/ul (4.8-10.8)
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
--- OUTSIDE RECORDS SUMMARY | 2023-10-30 06:08 | External Medical Summary | Summary of Care ---
Author Name Unknown Organization [facility] Address [address] [place] [address] Phone [phone] Care Team Providers Care Oncology Admin Name Role Phone Reid Bolden PA-C Primary Care Provider + Reason for Referral * Evaluate & Treat - Unlimited Visits (Within 10 days (routine)) - Pending Review Specialty Diagnoses / Procedures Referred By Zandra keller Referred To Contact Psychiatry / Psychology Diagnoses Mixed dementia (HCC) Jeannine Woods CRNP [address] [place] [address] Referral ID Status Reason Start Date Expiration Date Visits Requested Visits Authorized [id number] Pending Review Specialty Services Required 09/27/2023 999 999 Question Answer Referral Priority Within 10 days (routine) Where should this appointment be scheduled? [facility] Is this referral for medication management? No What condition is this patient being seen for? Dementia/Neurodegenerative Does the patient have SEVERE cognitive impairment on bedside screeners? (MoCA/MMSE <= 10) Unknown Comments Claudia Atkins criminal justice social worker. Please call patient's Agatha at [phone] to schedule appointment. Reason for Visit * Reason Onset Date Comments TRIAGE 09/27/2023 Encounter Details Date Type Department Care Team (Late st Contact Info) Description 09/27/2023 Telephone Neurology, [facility] [address] [place] [address] Services, Scheduling [address] [place] [address] TRIAGE Allergies No known active allergiesdocumented as [...] encounter Miscellaneous Notes * Telephone Encounter - Angelia Avitia LPN - 10/29/2023 1:58 PM EDT Patient verified identity by spelling of last name and date. Spoke with Agatha. She advised that Samuel had to be taken by ambulance to [facility] because he became so aggressive towards her the family and marriage counsellor were called, Samuel sung at the family and marriage counsellor and the EMT'S had to givehim a shot to calm him down. Agatha advised he was to be admitted and they were trying to get him placed somewhere. Agatha also reports that he was admitted about a month ago for a similar situation. Agatha advised he has had extreme bouts of anger and aggression. Agatha advised he has had episodes of bowel and bladder incontinence, stated he defecated his pants and then pulled them down outside and she is worried because there are children in the neighborhood. Advised that Dr. Christensen/ GENEVA Lao wanted her to meet with Director Property Claudia Atkins and that they tried calling from her office tohave them scheduled but the other phone number did not work, she reports it was changed. Phone number updated, patients warm transferred to scheduling. * Telephone Encounter - Aliya Maritnez OSA - 10/29/2023 12:58 PM EDT UTC; called 's cell phone, phone out of service, no myG to send a message. JEVON Martínez * Telephone Encounter - Jorge A Christensen DO - 10/29/2023 12:10 PM EDT Pt was referred to Claudia baer social worker masters on 09/26 but I don't see it [...] 12:12 PM * Telephone Encounter - Cassidy oCrona OSA - 10/29/2023 9:26 AM EDT Pt Agatha calling in [facility] is continuing to have problems with pt. He is refusing to let her help him get a bath and has terrible body odor, and keeps on urinating and defacating and having hard time cleaning him up and swipes at her. She is looking to speak again to her window caser, or nurse for advice as she doesn't know what to do already. Please call Agatha. [phone] * Telephone Encounter - Geri Morris OSA [...] told her that we were making our social worker masters aware of the situation. I reiterated that [...] will also place a referral for Claudia Atkisn, our social worker masters and will forward this message to her [...] current condition. She reports 3 hospitalizations at [facility]. One from late Jan to Feb, then [...] is mainly due to his poor hygiene. Agatah and theothers that live in the house [...] this from happening. Agatha reports calling the [facility] numerous times. Their directive [...] message to the pool, update current TE [facility] Neurology Pool- All messages go through the [facility], [facility] [place]- [id number] Neurology Pool Numbers- [facility] patients - follow normal process Ops req [facility] Neurology ([facility])- [id number] Ops req NE Neurology ([place] Only)- [id number] Neurosurgery Pool Numbers- [facility] patients- follow normal process Ops req Neurosurgery [facility] ([facility])- [id number] Ops req Neurosurgery [facility] ([place] Only) [id number] Requested Information from caller: Who [...] back from Dr Christensen or a MIKAELA menard pt for video appt on 10/16 How long has the issue been going on: na Any additional details to add: no Pts phone number for nurse to call back: [phone] If forms need to be faxed- Please [...] Vaccines (1 of 2) 2008 COVID-19 Vaccine ( - 2022-2 4 season) 2023 AAA Screening [...] Primary documented in this encounter Care Teams Oncology Admin Relationship Specialty Start Date End Date Reid Bolden PA-C 1 [facility] [address] [address] PCP - General Physician Ergonomics Technician 08/17/20 documented as of this encounter
[2023-10-30 06:13] LABS: BUN Creatinine Ratio 13.3 (10-20); Creatinine Clr Calc Pharmacy 72.4 ml/min; Est GFR (African American) 85.9 ml/min; Est GFR (Non-African American) 74.1 ml/min; Potassium 4.1 mmol/L (3.5-5.1)
[2023-10-30] MEDS: CHOLECALCIFEROL 125 MCG (5,000 UNITS) TAB PO SCH (07:46)
[2023-10-30] MEDS: THIAMINE HCL 100 MG TAB PO SCH (07:46)
[2023-10-30] MEDS: CYANOCOBALAMIN (B-12) 100 MCG TABLET PO SCH (07:46)
[2023-10-30] MEDS: ARIPiprazole 5 MG TAB PO SCH (07:46)
--- NOTE | 2023-10-30 18:53 | Hospitalist Progress Note ---
Date of Service October 30, 2023 Assessment & Plan (1) Unable to care for self: (2) Dementia: (3) Neurocognitive disorder: (4) Depression: Plan Mr Ragland is a 63-year-old male with PMH of dementia, heavy alcohol abuse, depression with psychotic features and catatonia, polysubstance abuse, cognitive decline since 2019 presenting with family stating they can no longer care for him at home. History of combative behavior and dementia, recently admitted to our service from 10/02-10/13 awaiting placement and was ultimately discharged home by request of patient's . Was seen by psychiatry during previous admission and was started on aripiprazole 5 mg in the morning (in addition to continuing aripiprazole 10 mg at bedtime, which she had previously been on), as well as starting mirtazapine 15 mg at bedtime as well as vitamin D3, B12 and thiamine supplementations. Reportedly brought to the ED by with request for placement as family unable to provide care at home. #Neurocognitive disorder #Unable to care for self #History of depression Office of aging involved, complex social situation History of sexual disinhibition per 04/20/2023 reports, previously on estradiol 0.0375 patch Case management to help with placement Psych consulted on previous admission - continue Abilify 5mg daily, 10mg HS, Mirtazapine 15 HS Evaluated by neuro on previous admission - MRI brain unremarkable, f/u Neuro in 4-6 weeks for further w/u. Recommend outpatient neuropsychiatric testing and follow up with adult neurology in memory clinic (no show for 10/16 appt) PT/OT evaluations for placement Delirium precautions Continue B12, thiamine and vitamin D supplements #Acute uncomplicated cystitis History of E coli on previous admission, treated UA today abnormal Starting on empiric Rocephin, follow culture GNB in preliminary culture DVT prophylaxis: SQ lovenox Code status: FULL PCP: JUAN JOSE Bolden Dispo: admitted to med/surg awaiting placement Admission and Anticipated Discharge Date Admission Date: October 29, 2023 Subjective Patient denies any acute concerns He reports recalling the incident with his , states he cannot control his outburst denies any symptoms upon exam, states he doesnt need anything further and looked away Physical Exam Constitutional: disheveled gentleman Respiratory: normal respiratory effort, lungs clear to auscultation Cardiovascular: RRR, no murmur, no edema Results & Data Results & Data Vital Signs (Past 12 Hours) Vital Signs Temp Pulse Resp BP Pulse Ox O2 Del Method 10/30/23 15:30 36.4 C L 57 L 16 99/69 L 92 Room Air 10/30/23 08:00 36.8 C 58 L 16 107/68 93 Room Air Laboratory Results Short CBC 10/30/23 Range/Units 05:32 WBC 6.42 (4.8-10.8) K/ul Hgb 13.9 L (14.0-18.0) g/dl Hct 41.6 L (42.0-52.0) % Plt Count 174 (130-400) K/uL BMP 10/30/23 05:32 Sodium 139 Potassium 4.1 Chloride 104 Carbon Dioxide 29 BUN 14 Creatinine 1.05 Glucose 88 Calcium 9.0 Medications Administered Home Medications Medication Instructions Recorded Confirmed Last Taken aripiprazole 10 mg tablet 10 mg PO HS 30 days #30 tabs 05/24/23 10/29/23 Unknown aripiprazole 5 mg tablet (Abilify) 5 mg PO QAM #30 tabs 10/14/23 10/29/23 Unknown cholecalciferol (vitamin D3) 125 125 mcg PO QAM #30 tabs 10/14/23 10/29/23 Unknown mcg (5,000 unit) tablet cyanocobalamin (vitamin B-12) 100 100 mcg PO QAM #30 tabs 10/14/23 10/29/23 Unknown mcg tablet (Vitamin B-12) mirtazapine 15 mg tablet 15 mg PO HS #30 tabs 10/14/23 10/29/23 Unknown thiamine HCl (vitamin B1) 100 mg 100 mg PO QAM #30 tabs 10/14/23 10/29/23 Unknown tablet Active Medications Generic Name Dose Route Start Last Admin Trade Name Freq PRN Reason Stop Dose Admin Aripiprazole 10 mg 10/29/23 21:00 10/29/23 20:53 Aripiprazole 10 Mg Tab PO 11/28/23 20:59 10 mg HS MICHEL Administration Aripiprazole 5 mg 10/30/23 09:00 10/30/23 07:46 Aripiprazole 5 Mg Tab PO 11/29/23 08:59 5 mg QAM MICHEL Administration Cyanocobalamin 100 mcg 10/30/23 09:00 10/30/23 07:46 Cyanocobalamin (B-12) 100 Mcg Tablet PO 11/29/23 08:59 100 mcg QAM MICHEL Administration Enoxaparin Sodium 40 mg 10/29/23 18:30 10/29/23 18:28 Enoxaparin Inj 40 Mg/0.4 Ml Syr SQ 11/28/23 18:29 40 mg Q24H MICHEL Administration Ceftriaxone Sodium 2,000 mg in 50 mls @ 100 mls/hr 10/29/23 18:30 10/29/23 20:25 Rocephin IV 11/08/23 18:29 Infused Q24H MICHEL Infusion Mirtazapine 15 mg 10/29/23 21:00 10/29/23 20:53 Mirtazapine Tab 15 Mg Tab PO 11/28/23 20:59 15 mg HS MICHEL Administration Thiamine HCl 100 mg 10/30/23 09:00 10/30/23 07:46 Thiamine Hcl 100 Mg Tab PO 11/29/23 08:59 100 mg QAM MICHEL Administration Vitamin D 125 mcg 10/30/23 09:00 10/30/23 07:46 Cholecalciferol 125 Mcg (5,000 Units) Tab PO 11/29/23 08:59 125 mcg QAM MICHEL Administration (2) Dementia Dementia behavioral or psychological symptom: unspecified whether behavioral, psychotic, or mood disturbance or anxiety Dementia severity: unspecified severity Dementia type: unspecified type Qualified Code(s): F03.90 - Unspecified dementia, unspecified severity, without behavioral disturbance, psychotic disturbance, mood disturbance, and anxiety (4) Depression Depression Type: unspecified Qualified Code(s): F32.A - Depression, unspecified
[2023-10-31 07:53] LABS: Hemoglobin 14.1 g/dl (14.0-18.0); Mean Corpuscular Hemoglobin 29.4 pg (25.0-34.0); Mean Corpuscular Hgb Conc 33.6 g/dL (32.0-36.0); Mean Corpuscular Volume 87.5 fL (80.0-100.0); Mean Platelet Volume 9.6 fL (9.4-12.4); Platelet Count 186 K/uL (130-400); RDW Standard Deviation 41.9 fL (36.4-46.3); White Blood Count 6.94 K/ul (4.8-10.8)
[2023-10-31 08:14] LABS: BUN Creatinine Ratio 13.8 (10-20); Calcium 9.3 mg/dl (8.6-10.3); Creatinine Clr Calc Pharmacy 69.8 ml/min; Est GFR (African American) 82.1 ml/min; Est GFR (Non-African American) 70.9 ml/min
--- NOTE | 2023-10-31 14:02 | Hospitalist Progress Note ---
Date of Service October 31, 2023 Assessment & Plan (1) Unable to care for self: (2) Dementia: (3) Neurocognitive disorder: (4) Depression: Plan Mr Ragland is a 63-year-old male with PMH of dementia, heavy alcohol abuse, depression with psychotic features and catatonia, polysubstance abuse, cognitive decline since 2019 presenting with family stating they can no longer care for him at home. History of combative behavior and dementia, recently admitted to our service from 10/02-10/13 awaiting placement and was ultimately discharged home by request of patient's . Was seen by psychiatry during previous admission and was started on aripiprazole 5 mg in the morning (in addition to continuing aripiprazole 10 mg at bedtime, which she had previously been on), as well as starting mirtazapine 15 mg at bedtime as well as vitamin D3, B12 and thiamine supplementations. Reportedly brought to the ED by with request for placement as family unable to provide care at home. UA noted to be positive for e coli. No further concerns at this time. Planning pursuit of placement,. #Neurocognitive disorder #Unable to care for self #History of depression Office of aging involved, complex social situation History of sexual disinhibition per 04/20/2023 reports, previously on estradiol 0.0375 patch Case management to help with placement Psych consulted on previous admission - continue Abilify 5mg daily, 10mg HS, Mirtazapine 15 HS Evaluated by neuro on previous admission - MRI brain unremarkable, f/u Neuro in 4-6 weeks for further w/u. Recommend outpatient neuropsychiatric testing and follow up with adult neurology in memory clinic (no show for 10/16 appt) PT/OT evaluations for placement Delirium precautions Continue B12, thiamine and vitamin D supplements #Acute uncomplicated cystitis History of E coli on previous admission, treated UA today abnormal Continue CTX, day 3, while admitted, plan for 7 days pansensitive e coli on culture DVT prophylaxis: SQ lovenox Code status: FULL PCP: JUAN JOSE Bolden Dispo: admitted to med/surg awaiting placement Admission and Anticipated Discharge Date Admission Date: October 29, 2023 Subjective NAEO Patient evaluated at bedside, denies any concerns Physical Exam Constitutional: disheveled, intermittent eye contact Respiratory: normal respiratory effort, lungs clear to auscultation Cardiovascular: RRR, no murmur, no edema Results & Data Results & Data Vital Signs (Past 12 Hours) Vital Signs Temp Pulse Resp BP Pulse Ox O2 Del Method 10/31/23 06:57 36.4 C L 63 16 92/71 L 94 Room Air Laboratory Results Short CBC 10/31/23 Range/Units 07:05 WBC 6.94 (4.8-10.8) K/ul Hgb 14.1 (14.0-18.0) g/dl Hct 42.0 (42.0-52.0) % Plt Count 186 (130-400) K/uL BMP 10/31/23 07:05 Sodium 139 Potassium 4.0 Chloride 105 Carbon Dioxide 28 BUN 15 Creatinine 1.09 Glucose 95 Calcium 9.3 Medications Administered Home Medications Medication Instructions Recorded Confirmed Last Taken aripiprazole 10 mg tablet 10 mg PO HS 30 days #30 tabs 05/24/23 10/29/23 Unknown aripiprazole 5 mg tablet (Abilify) 5 mg PO QAM #30 tabs 10/14/23 10/29/23 Unknown cholecalciferol (vitamin D3) 125 125 mcg PO QAM #30 tabs 10/14/23 10/29/23 Unknown mcg (5,000 unit) tablet cyanocobalamin (vitamin B-12) 100 100 mcg PO QAM #30 tabs 10/14/23 10/29/23 Unknown mcg tablet (Vitamin B-12) mirtazapine 15 mg tablet 15 mg PO HS #30 tabs 10/14/23 10/29/23 Unknown thiamine HCl (vitamin B1) 100 mg 100 mg PO QAM #30 tabs 10/14/23 10/29/23 Unknown tablet Active Medications Generic Name Dose Route Start Last Admin Trade Name Bandarq PRN Reason Stop Dose Admin Aripiprazole 10 mg 10/29/23 21:00 10/30/23 19:53 Aripiprazole 10 Mg Tab PO 11/28/23 20:59 10 mg HS MICHEL Administration Aripiprazole 5 mg 10/30/23 09:00 10/31/23 08:12 Aripiprazole 5 Mg Tab PO 11/29/23 08:59 5 mg QAM MICHEL Administration Cyanocobalamin 100 mcg 10/30/23 09:00 10/31/23 08:11 Cyanocobalamin (B-12) 100 Mcg Tablet PO 11/29/23 08:59 100 mcg QAM MICHEL Administration Enoxaparin Sodium 40 mg 10/29/23 18:30 10/30/23 19:24 Enoxaparin Inj 40 Mg/0.4 Ml Syr SQ 11/28/23 18:29 40 mg Q24H MICHEL Administration Ceftriaxone Sodium 2,000 mg in 50 mls @ 100 mls/hr 10/29/23 18:30 10/30/23 19:55 Rocephin IV 11/08/23 18:29 Infused Q24H MICHEL Infusion Mirtazapine 15 mg 10/29/23 21:00 10/30/23 19:53 Mirtazapine Tab 15 Mg Tab PO 11/28/23 20:59 15 mg HS MICHEL Administration Thiamine HCl 100 mg 10/30/23 09:00 10/31/23 08:11 Thiamine Hcl 100 Mg Tab PO 11/29/23 08:59 100 mg QAM MICHEL Administration Vitamin D 125 mcg 10/30/23 09:00 10/31/23 08:11 Cholecalciferol 125 Mcg (5,000 Units) Tab PO 11/29/23 08:59 125 mcg QAM MICHEL Administration (2) Dementia Dementia behavioral or psychological symptom: unspecified whether behavioral, psychotic, or mood disturbance or anxiety Dementia severity: unspecified severity Dementia type: unspecified type Qualified Code(s): F03.90 - Unspecified dementia, unspecified severity, without behavioral disturbance, psychotic disturbance, mood disturbance, and anxiety (4) Depression Depression Type: unspecified Qualified Code(s): F32.A - Depression, unspecified
[2023-10-31 21:27] LABS: 7-Aminoclonaz, Confirm NEGATIVE ng/mL (<25); Hydro-Alp Ur, GC/MS NEGATIVE ng/mL (<25); Hydroxyethylflurazepam, Conf NEGATIVE ng/mL (<50); Hydroxymidazolam Ur, GC/MS >2000 ng/mL (<50); Hydroxytriazolam NEGATIVE ng/mL (<50); Lorazepam, Ur GC/MS NEGATIVE ng/mL (<50); Nordiazepam, Confirm NEGATIVE ng/mL (<50); Oxazepam Ur, GC/MS NEGATIVE ng/mL (<50); Temazepam, Confirm NEGATIVE ng/mL (<50)
--- NOTE | 2023-11-01 12:10 | Hospitalist Progress Note ---
Date of Service November 01, 2023 Assessment & Plan (1) Unable to care for self: (2) Dementia: (3) Neurocognitive disorder: (4) Depression: Plan Mr Ragland is a 63-year-old male with PMH of dementia, heavy alcohol abuse, depression with psychotic features and catatonia, polysubstance abuse, cognitive decline since 2019 presenting with family stating they can no longer care for him at home. History of combative behavior and dementia, recently admitted to our service from 10/02-10/13 awaiting placement and was ultimately discharged home by request of patient's . Was seen by psychiatry during previous admission and was started on aripiprazole 5 mg in the morning (in addition to continuing aripiprazole 10 mg at bedtime, which she had previously been on), as well as starting mirtazapine 15 mg at bedtime as well as vitamin D3, B12 and thiamine supplementations. Reportedly brought to the ED by with request for placement as family unable to provide care at home. UA noted to be positive for e coli. No further concerns at this time. Planning pursuit of placement,. No changes in management today. #Neurocognitive disorder #Unable to care for self #History of depression Office of aging involved, complex social situation History of sexual disinhibition per 04/20/2023 reports, previously on estradiol 0.0375 patch Case management to help with placement Psych consulted on previous admission - continue Abilify 5mg daily, 10mg HS, Mirtazapine 15 HS Evaluated by neuro on previous admission - MRI brain unremarkable, f/u Neuro in 4-6 weeks for further w/u. Recommend outpatient neuropsychiatric testing and follow up with adult neurology in memory clinic (no show for 10/16 appt) PT/OT evaluations for placement Delirium precautions Continue B12, thiamine and vitamin D supplements #Acute uncomplicated cystitis History of E coli on previous admission, treated UA today abnormal Continue CTX, day 4, while admitted, plan for 7 days pansensitive e coli on culture DVT prophylaxis: SQ lovenox Code status: FULL PCP: JUAN JOSE Bolden Dispo: admitted to med/surg awaiting placement Admission and Anticipated Discharge Date Admission Date: October 29, 2023 Subjective NAEO Patient evaluated at bedside, denies any concerns Physical Exam Constitutional: laying in bed, answers simple questions Respiratory: normal respiratory effort, lungs clear to auscultation Cardiovascular: RRR, no murmur, no edema Gastrointestinal (Abdomen): normal bowel sounds, soft, nontender, no hepatosplenomegaly Results & Data Results & Data Vital Signs (Past 12 Hours) Vital Signs Temp Pulse Resp BP Pulse Ox O2 Del Method 11/01/23 07:15 36.3 C L 57 L 16 95/60 L 96 Room Air Medications Administered Home Medications Medication Instructions Recorded Confirmed Last Taken aripiprazole 10 mg tablet 10 mg PO HS 30 days #30 tabs 05/24/23 10/29/23 Unknown aripiprazole 5 mg tablet (Abilify) 5 mg PO QAM #30 tabs 10/14/23 10/29/23 Unknown cholecalciferol (vitamin D3) 125 125 mcg PO QAM #30 tabs 10/14/23 10/29/23 Unknown mcg (5,000 unit) tablet cyanocobalamin (vitamin B-12) 100 100 mcg PO QAM #30 tabs 10/14/23 10/29/23 Unknown mcg tablet (Vitamin B-12) mirtazapine 15 mg tablet 15 mg PO HS #30 tabs 10/14/23 10/29/23 Unknown thiamine HCl (vitamin B1) 100 mg 100 mg PO QAM #30 tabs 10/14/23 10/29/23 Unknown tablet Active Medications Generic Name Dose Route Start Last Admin Trade Name Lisa PRN Reason Stop Dose Admin Aripiprazole 10 mg 10/29/23 21:00 10/31/23 20:18 Aripiprazole 10 Mg Tab PO 11/28/23 20:59 10 mg HS MICHEL Administration Aripiprazole 5 mg 10/30/23 09:00 11/01/23 08:17 Aripiprazole 5 Mg Tab PO 11/29/23 08:59 5 mg QAM MICHEL Administration Cyanocobalamin 100 mcg 10/30/23 09:00 11/01/23 08:17 Cyanocobalamin (B-12) 100 Mcg Tablet PO 11/29/23 08:59 100 mcg QAM MICHEL Administration Enoxaparin Sodium 40 mg 10/29/23 18:30 10/31/23 18:27 Enoxaparin Inj 40 Mg/0.4 Ml Syr SQ 11/28/23 18:29 40 mg Q24H MICHEL Administration Ceftriaxone Sodium 2,000 mg in 50 mls @ 100 mls/hr 10/29/23 18:30 10/31/23 18:27 Rocephin IV 11/08/23 18:29 Infused Q24H MICHEL Infusion Mirtazapine 15 mg 10/29/23 21:00 10/31/23 20:18 Mirtazapine Tab 15 Mg Tab PO 11/28/23 20:59 15 mg HS MICHEL Administration Thiamine HCl 100 mg 10/30/23 09:00 11/01/23 08:17 Thiamine Hcl 100 Mg Tab PO 11/29/23 08:59 100 mg QAM MICHEL Administration Vitamin D 125 mcg 10/30/23 09:00 11/01/23 08:17 Cholecalciferol 125 Mcg (5,000 Units) Tab PO 11/29/23 08:59 125 mcg QAM MICHEL Administration (2) Dementia Dementia behavioral or psychological symptom: unspecified whether behavioral, psychotic, or mood disturbance or anxiety Dementia severity: unspecified severity Dementia type: unspecified type Qualified Code(s): F03.90 - Unspecified dementia, unspecified severity, without behavioral disturbance, psychotic disturbance, mood disturbance, and anxiety (4) Depression Depression Type: unspecified Qualified Code(s): F32.A - Depression, unspecified
--- NOTE | 2023-11-02 11:24 | Hospitalist Progress Note ---
Date of Service November 02, 2023 Assessment & Plan (1) Unable to care for self: (2) Dementia: (3) Neurocognitive disorder: (4) Depression: Plan Mr Ragland is a 63-year-old male with PMH of dementia, heavy alcohol abuse, depression with psychotic features and catatonia, polysubstance abuse, cognitive decline since 2019 presenting with family stating they can no longer care for him at home. History of combative behavior and dementia, recently admitted to our service from 10/02-10/13 awaiting placement and was ultimately discharged home by request of patient's . Was seen by psychiatry during previous admission and was started on aripiprazole 5 mg in the morning (in addition to continuing aripiprazole 10 mg at bedtime, which she had previously been on), as well as starting mirtazapine 15 mg at bedtime as well as vitamin D3, B12 and thiamine supplementations. Reportedly brought to the ED by with request for placement as family unable to provide care at home. UA noted to be positive for e coli. No further concerns at this time. Planning pursuit of placement,. No changes in management today. #Neurocognitive disorder #Unable to care for self #History of depression Office of aging involved, complex social situation History of sexual disinhibition per 04/20/2023 reports, previously on estradiol 0.0375 patch Case management to help with placement Psych consulted on previous admission - continue Abilify 5mg daily, 10mg HS, Mirtazapine 15 HS Evaluated by neuro on previous admission - MRI brain unremarkable, f/u Neuro in 4-6 weeks for further w/u. Recommend outpatient neuropsychiatric testing and follow up with adult neurology in memory clinic (no show for 10/16 appt) PT/OT evaluations for placement: SNF recommended Delirium precautions Continue B12, thiamine and vitamin D supplements #Acute uncomplicated cystitis History of E coli on previous admission, treated UA today abnormal Continue CTX, day 5, while admitted, plan for 7 days pansensitive e coli on culture DVT prophylaxis: SQ lovenox Code status: FULL PCP: JUAN JOSE Bolden Dispo: admitted to med/surg awaiting placement Admission and Anticipated Discharge Date Admission Date: October 29, 2023 Subjective NAEO Offered patient a shower, he abruptly declined Physical Exam Constitutional: disheveled, refuses shower, but otherwise cooperative Respiratory: normal respiratory effort, lungs clear to auscultation Cardiovascular: RRR, no murmur, no edema Results & Data Results & Data Vital Signs (Past 12 Hours) Vital Signs Temp Pulse Resp BP Pulse Ox O2 Del Method 11/02/23 07:57 37.2 C 62 16 118/77 94 Room Air 11/02/23 07:30 Room Air Medications Administered Home Medications Medication Instructions Recorded Confirmed Last Taken aripiprazole 10 mg tablet 10 mg PO HS 30 days #30 tabs 05/24/23 10/29/23 Unknown aripiprazole 5 mg tablet (Abilify) 5 mg PO QAM #30 tabs 10/14/23 10/29/23 Unknown cholecalciferol (vitamin D3) 125 125 mcg PO QAM #30 tabs 10/14/23 10/29/23 Unknown mcg (5,000 unit) tablet cyanocobalamin (vitamin B-12) 100 100 mcg PO QAM #30 tabs 10/14/23 10/29/23 Unknown mcg tablet (Vitamin B-12) mirtazapine 15 mg tablet 15 mg PO HS #30 tabs 10/14/23 10/29/23 Unknown thiamine HCl (vitamin B1) 100 mg 100 mg PO QAM #30 tabs 10/14/23 10/29/23 Unknown tablet Active Medications Generic Name Dose Route Start Last Admin Trade Name Lisa PRN Reason Stop Dose Admin Aripiprazole 10 mg 10/29/23 21:00 11/01/23 21:43 Aripiprazole 10 Mg Tab PO 11/28/23 20:59 10 mg HS MICHEL Administration Aripiprazole 5 mg 10/30/23 09:00 11/02/23 09:03 Aripiprazole 5 Mg Tab PO 11/29/23 08:59 5 mg QAM MICHEL Administration Cyanocobalamin 100 mcg 10/30/23 09:00 11/02/23 09:03 Cyanocobalamin (B-12) 100 Mcg Tablet PO 11/29/23 08:59 100 mcg QAM MICHEL Administration Enoxaparin Sodium 40 mg 10/29/23 18:30 11/01/23 18:08 Enoxaparin Inj 40 Mg/0.4 Ml Syr SQ 11/28/23 18:29 40 mg Q24H MICHEL Administration Ceftriaxone Sodium 2,000 mg in 50 mls @ 100 mls/hr 10/29/23 18:30 11/01/23 18:47 Rocephin IV 11/08/23 18:29 Infused Q24H MICHEL Infusion Mirtazapine 15 mg 10/29/23 21:00 11/01/23 21:43 Mirtazapine Tab 15 Mg Tab PO 11/28/23 20:59 15 mg HS MICHEL Administration Thiamine HCl 100 mg 10/30/23 09:00 11/02/23 09:03 Thiamine Hcl 100 Mg Tab PO 11/29/23 08:59 100 mg QAM MICHEL Administration Vitamin D 125 mcg 10/30/23 09:00 11/02/23 09:03 Cholecalciferol 125 Mcg (5,000 Units) Tab PO 11/29/23 08:59 125 mcg QAM MICHEL Administration (2) Dementia Dementia behavioral or psychological symptom: unspecified whether behavioral, psychotic, or mood disturbance or anxiety Dementia severity: unspecified severity Dementia type: unspecified type Qualified Code(s): F03.90 - Unspecified dementia, unspecified severity, without behavioral disturbance, psychotic disturbance, mood disturbance, and anxiety (4) Depression Depression Type: unspecified Qualified Code(s): F32.A - Depression, unspecified
--- NOTE | 2023-11-03 10:30 | Hospitalist Progress Note ---
Date of Service November 03, 2023 Assessment & Plan (1) Unable to care for self: (2) Dementia: (3) Neurocognitive disorder: (4) Depression: Plan Mr Ragland is a 63-year-old male with PMH of dementia, heavy alcohol abuse, depression with psychotic features and catatonia, polysubstance abuse, cognitive decline since 2019 presenting with family stating they can no longer care for him at home. History of combative behavior and dementia, recently admitted to our service from 10/02-10/13 awaiting placement and was ultimately discharged home by request of patient's . Was seen by psychiatry during previous admission and was started on aripiprazole 5 mg in the morning (in addition to continuing aripiprazole 10 mg at bedtime, which she had previously been on), as well as starting mirtazapine 15 mg at bedtime as well as vitamin D3, B12 and thiamine supplementations. Reportedly brought to the ED by with request for placement as family unable to provide care at home. UA noted to be positive for e coli. No further concerns at this time. Planning pursuit of placement,. No changes in management today; complex dispo planning #Neurocognitive disorder #Unable to care for self #History of depression Office of aging involved, complex social situation History of sexual disinhibition per 04/20/2023 reports, previously on estradiol 0.0375 patch Case management to help with placement Psych consulted on previous admission - continue Abilify 5mg daily, 10mg HS, Mirtazapine 15 HS Evaluated by neuro on previous admission - MRI brain unremarkable, f/u Neuro in 4-6 weeks for further w/u. Recommend outpatient neuropsychiatric testing and follow up with adult neurology in memory clinic (no show for 10/16 appt) PT/OT evaluations for placement: SNF recommended Delirium precautions Continue B12, thiamine and vitamin D supplements states she cannot take patient at this time due to her own medical issues and home dynamics #Acute uncomplicated cystitis History of E coli on previous admission, treated UA today abnormal Continue CTX, day 6 while admitted, plan for 7 days pansensitive e coli on culture Am labs DVT prophylaxis: SQ lovenox Code status: FULL PCP: JUAN JOSE Bolden Dispo: admitted to med/surg awaiting placement Admission and Anticipated Discharge Date Admission Date: October 29, 2023 Subjective NAEO When asked again if he would like a shower, abruptly declines, reports no needs at this time Physical Exam Constitutional: WD/WN, vitals as above Respiratory: normal respiratory effort, lungs clear to auscultation Cardiovascular: RRR, no murmur, no edema Musculoskeletal: no cyanosis or clubbing, extremities motor strength 5/5 Neurologic: PERRL, EOMI, accommodation nl, no face palsy, no dysarthria Results & Data Results & Data Vital Signs (Past 12 Hours) Vital Signs Temp Pulse Resp BP Pulse Ox O2 Del Method 11/03/23 07:05 36.5 C 50 L 16 106/64 95 Room Air Medications Administered Home Medications Medication Instructions Recorded Confirmed Last Taken aripiprazole 10 mg tablet 10 mg PO HS 30 days #30 tabs 05/24/23 10/29/23 Unknown aripiprazole 5 mg tablet (Abilify) 5 mg PO QAM #30 tabs 10/14/23 10/29/23 Unknown cholecalciferol (vitamin D3) 125 125 mcg PO QAM #30 tabs 10/14/23 10/29/23 Unknown mcg (5,000 unit) tablet cyanocobalamin (vitamin B-12) 100 100 mcg PO QAM #30 tabs 10/14/23 10/29/23 Unknown mcg tablet (Vitamin B-12) mirtazapine 15 mg tablet 15 mg PO HS #30 tabs 10/14/23 10/29/23 Unknown thiamine HCl (vitamin B1) 100 mg 100 mg PO QAM #30 tabs 10/14/23 10/29/23 Unknown tablet Active Medications Generic Name Dose Route Start Last Admin Trade Name Freq PRN Reason Stop Dose Admin Aripiprazole 10 mg 10/29/23 21:00 11/02/23 20:12 Aripiprazole 10 Mg Tab PO 11/28/23 20:59 10 mg HS MICHEL Administration Aripiprazole 5 mg 10/30/23 09:00 11/03/23 08:06 Aripiprazole 5 Mg Tab PO 11/29/23 08:59 5 mg QAM MICHEL Administration Cyanocobalamin 100 mcg 10/30/23 09:00 11/03/23 08:06 Cyanocobalamin (B-12) 100 Mcg Tablet PO 11/29/23 08:59 100 mcg QAM MICHEL Administration Enoxaparin Sodium 40 mg 10/29/23 18:30 11/02/23 17:38 Enoxaparin Inj 40 Mg/0.4 Ml Syr SQ 11/28/23 18:29 40 mg Q24H MICHEL Administration Ceftriaxone Sodium 2,000 mg in 50 mls @ 100 mls/hr 10/29/23 18:30 11/02/23 18:11 Rocephin IV 11/08/23 18:29 Infused Q24H MICHEL Infusion Mirtazapine 15 mg 10/29/23 21:00 11/02/23 20:12 Mirtazapine Tab 15 Mg Tab PO 11/28/23 20:59 15 mg HS MICHEL Administration Thiamine HCl 100 mg 10/30/23 09:00 11/03/23 08:06 Thiamine Hcl 100 Mg Tab PO 11/29/23 08:59 100 mg QAM MICHEL Administration Vitamin D 125 mcg 10/30/23 09:00 11/03/23 08:06 Cholecalciferol 125 Mcg (5,000 Units) Tab PO 11/29/23 08:59 125 mcg QAM MCIHEL Administration (2) Dementia Dementia behavioral or psychological symptom: unspecified whether behavioral, psychotic, or mood disturbance or anxiety Dementia severity: unspecified severity Dementia type: unspecified type Qualified Code(s): F03.90 - Unspecified dementia, unspecified severity, without behavioral disturbance, psychotic disturbance, mood disturbance, and anxiety (4) Depression Depression Type: unspecified Qualified Code(s): F32.A - Depression, unspecified
[2023-11-04 09:57] LABS: BUN Creatinine Ratio 14.4 (10-20); Creatinine Clr Calc Pharmacy 68.5 ml/min; Est GFR (African American) 80.3 ml/min; Est GFR (Non-African American) 69.3 ml/min; Potassium 3.8 mmol/L (3.5-5.1)
--- NOTE | 2023-11-04 14:31 | Hospitalist Progress Note ---
Date of Service November 04, 2023 Assessment & Plan (1) Unable to care for self: (2) Dementia: (3) Neurocognitive disorder: (4) Depression: Plan Mr Ragland is a 63-year-old male with PMH of dementia, heavy alcohol abuse, depression with psychotic features and catatonia, polysubstance abuse, cognitive decline since 2019 presenting with family stating they can no longer care for him at home. History of combative behavior and dementia, recently admitted to our service from 10/02-10/13 awaiting placement and was ultimately discharged home by request of patient's . Was seen by psychiatry during previous admission and was started on aripiprazole 5 mg in the morning (in addition to continuing aripiprazole 10 mg at bedtime, which she had previously been on), as well as starting mirtazapine 15 mg at bedtime as well as vitamin D3, B12 and thiamine supplementations. Reportedly brought to the ED by with request for placement as family unable to provide care at home. UA noted to be positive for e coli. No further concerns at this time. Planning pursuit of placement,. No changes in management today; complex dispo planning #Neurocognitive disorder #Unable to care for self #History of depression Office of aging involved, complex social situation History of sexual disinhibition per 04/20/2023 reports, previously on estradiol 0.0375 patch Case management to help with placement Psych consulted on previous admission - continue Abilify 5mg daily, 10mg HS, Mirtazapine 15 HS Evaluated by neuro on previous admission - MRI brain unremarkable, f/u Neuro in 4-6 weeks for further w/u. Recommend outpatient neuropsychiatric testing and follow up with adult neurology in memory clinic (no show for 10/16 appt) PT/OT evaluations for placement: SNF recommended Delirium precautions Continue B12, thiamine and vitamin D supplements states she cannot take patient at this time due to her own medical issues and home dynamics #Acute uncomplicated cystitis History of E coli on previous admission, treated UA today abnormal Continue CTX, day 7 while admitted will complete course this evening pansensitive e coli on culture labs stable DVT prophylaxis: SQ lovenox Code status: FULL PCP: JUAN JOSE Bolden Dispo: admitted to med/surg awaiting placement Admission and Anticipated Discharge Date Admission Date: October 29, 2023 Subjective NAEO Encouraged patient to shower, agreeable today Denies any new concerns, states he feels well Physical Exam Constitutional: WD/WN, vitals as above Respiratory: normal respiratory effort, lungs clear to auscultation Cardiovascular: RRR, no murmur, no edema Gastrointestinal (Abdomen): normal bowel sounds, soft, nontender, no hepatosplenomegaly Results & Data Results & Data Vital Signs (Past 12 Hours) Vital Signs Temp Pulse Resp BP Pulse Ox O2 Del Method 11/04/23 07:19 36.5 C 55 L 16 96/61 L 98 Room Air Laboratory Results [facility] 11/04/23 09:16 Sodium 139 Potassium 3.8 Chloride 104 Carbon Dioxide 31 BUN 16 Creatinine 1.11 Glucose 129 H Calcium 9.0 Medications Administered Home Medications Medication Instructions Recorded Confirmed Last Taken aripiprazole 10 mg tablet 10 mg PO HS 30 days #30 tabs 05/24/23 10/29/23 Unknown aripiprazole 5 mg tablet (Abilify) 5 mg PO QAM #30 tabs 10/14/23 10/29/23 Unknown cholecalciferol (vitamin D3) 125 125 mcg PO QAM #30 tabs 10/14/23 10/29/23 Unknown mcg (5,000 unit) tablet cyanocobalamin (vitamin B-12) 100 100 mcg PO QAM #30 tabs 10/14/23 10/29/23 Unknown mcg tablet (Vitamin B-12) mirtazapine 15 mg tablet 15 mg PO HS #30 tabs 10/14/23 10/29/23 Unknown thiamine HCl (vitamin B1) 100 mg 100 mg PO QAM #30 tabs 10/14/23 10/29/23 Unknown tablet Active Medications Generic Name Dose Route Start Last Admin Trade Name iLsa PRN Reason Stop Dose Admin Aripiprazole 10 mg 10/29/23 21:00 11/03/23 21:25 Aripiprazole 10 Mg Tab PO 11/28/23 20:59 10 mg HS MICHEL Administration Aripiprazole 5 mg 10/30/23 09:00 11/04/23 08:01 Aripiprazole 5 Mg Tab PO 11/29/23 08:59 5 mg QAM MICHEL Administration Cyanocobalamin 100 mcg 10/30/23 09:00 11/04/23 08:01 Cyanocobalamin (B-12) 100 Mcg Tablet PO 11/29/23 08:59 100 mcg QAM MICHEL Administration Enoxaparin Sodium 40 mg 10/29/23 18:30 11/03/23 18:22 Enoxaparin Inj 40 Mg/0.4 Ml Syr SQ 11/28/23 18:29 40 mg Q24H MICHEL Administration Ceftriaxone Sodium 2,000 mg in 50 mls @ 100 mls/hr 10/29/23 18:30 11/03/23 19:02 Rocephin IV 11/08/23 18:29 Infused Q24H MICHEL Infusion Mirtazapine 15 mg 10/29/23 21:00 11/03/23 21:24 Mirtazapine Tab 15 Mg Tab PO 11/28/23 20:59 15 mg HS MICHEL Administration Thiamine HCl 100 mg 10/30/23 09:00 11/04/23 08:01 Thiamine Hcl 100 Mg Tab PO 11/29/23 08:59 100 mg QAM MICHEL Administration Vitamin D 125 mcg 10/30/23 09:00 11/04/23 08:01 Cholecalciferol 125 Mcg (5,000 Units) Tab PO 11/29/23 08:59 125 mcg QAM MICHEL Administration (2) Dementia Dementia behavioral or psychological symptom: unspecified whether behavioral, psychotic, or mood disturbance or anxiety Dementia severity: unspecified severity Dementia type: unspecified type Qualified Code(s): F03.90 - Unspecified dementia, unspecified severity, without behavioral disturbance, psychotic disturbance, mood disturbance, and anxiety (4) Depression Depression Type: unspecified Qualified Code(s): F32.A - Depression, unspecified
--- NOTE | 2023-11-05 12:12 | Hospitalist Progress Note ---
Date of Service November 05, 2023 Assessment & Plan (1) Unable to care for self: (2) Dementia: (3) Neurocognitive disorder: (4) Depression: Plan Mr Ragland is a 63-year-old male with PMH of dementia, heavy alcohol abuse, depression with psychotic features and catatonia, polysubstance abuse, cognitive decline since 2019 presenting with family stating they can no longer care for him at home. History of combative behavior and dementia, recently admitted to our service from 10/02-10/13 awaiting placement and was ultimately discharged home by request of patient's . Was seen by psychiatry during previous admission and was started on aripiprazole 5 mg in the morning (in addition to continuing aripiprazole 10 mg at bedtime, which she had previously been on), as well as starting mirtazapine 15 mg at bedtime as well as vitamin D3, B12 and thiamine supplementations. Reportedly brought to the ED by with request for placement as family unable to provide care at home. UA noted to be positive for e coli. No further concerns at this time. Planning pursuit of placement,. No changes in management today; complex dispo planning Case management working with to fill out documents for placement. Patient remains medically stable. No updates to care plan. #Neurocognitive disorder #Unable to care for self #History of depression Office of aging involved, complex social situation History of sexual disinhibition per 04/20/2023 reports, previously on estradiol 0.0375 patch Case management to help with placement Psych consulted on previous admission - continue Abilify 5mg daily, 10mg HS, Mirtazapine 15 HS Evaluated by neuro on previous admission - MRI brain unremarkable, f/u Neuro in 4-6 weeks for further w/u. Recommend outpatient neuropsychiatric testing and follow up with adult neurology in memory clinic (no show for 10/16 appt) PT/OT evaluations for placement: SNF recommended Delirium precautions Continue B12, thiamine and vitamin D supplements states she cannot take patient at this time due to her own medical issues and home dynamics #Acute uncomplicated cystitis *resolved History of E coli on previous admission, treated UA today abnormal Completed 7 days of CTX pansensitive e coli on culture labs stable DVT prophylaxis: SQ lovenox Code status: FULL PCP: JUAN JOSE Bolden Dispo: admitted to med/surg awaiting placement Admission and Anticipated Discharge Date Admission Date: October 29, 2023 Subjective NAEO Physical Exam Constitutional: WD/WN, vitals as above Respiratory: normal respiratory effort, lungs clear to auscultation Musculoskeletal: no cyanosis or clubbing, extremities motor strength 5/5 Neurologic: PERRL, EOMI, accommodation nl, no face palsy, no dysarthria Results & Data Results & Data Vital Signs (Past 12 Hours) Vital Signs Temp Pulse Pulse Resp BP Pulse Ox O2 Del Method 11/05/23 09:34 60 117/73 93 Room Air 11/05/23 07:09 36.6 C 53 L 16 110/71 93 Room Air Medications Administered Home Medications Medication Instructions Recorded Confirmed Last Taken aripiprazole 10 mg tablet 10 mg PO HS 30 days #30 tabs 05/24/23 10/29/23 Unknown aripiprazole 5 mg tablet (Abilify) 5 mg PO QAM #30 tabs 10/14/23 10/29/23 Unknown cholecalciferol (vitamin D3) 125 125 mcg PO QAM #30 tabs 10/14/23 10/29/23 Unknown mcg (5,000 unit) tablet cyanocobalamin (vitamin B-12) 100 100 mcg PO QAM #30 tabs 10/14/23 10/29/23 Unknown mcg tablet (Vitamin B-12) mirtazapine 15 mg tablet 15 mg PO HS #30 tabs 10/14/23 10/29/23 Unknown thiamine HCl (vitamin B1) 100 mg 100 mg PO QAM #30 tabs 10/14/23 10/29/23 Unknown tablet Active Medications Generic Name Dose Route Start Last Admin Trade Name Freq PRN Reason Stop Dose Admin Aripiprazole 10 mg 10/29/23 21:00 11/04/23 19:47 Aripiprazole 10 Mg Tab PO 11/28/23 20:59 10 mg HS MICHEL Administration Aripiprazole 5 mg 10/30/23 09:00 11/05/23 09:36 Aripiprazole 5 Mg Tab PO 11/29/23 08:59 5 mg QAM MICHEL Administration Cyanocobalamin 100 mcg 10/30/23 09:00 11/05/23 09:36 Cyanocobalamin (B-12) 100 Mcg Tablet PO 11/29/23 08:59 100 mcg QAM MICHEL Administration Enoxaparin Sodium 40 mg 10/29/23 18:30 11/04/23 18:24 Enoxaparin Inj 40 Mg/0.4 Ml Syr SQ 11/28/23 18:29 40 mg Q24H MICHEL Administration Mirtazapine 15 mg 10/29/23 21:00 11/04/23 19:47 Mirtazapine Tab 15 Mg Tab PO 11/28/23 20:59 15 mg HS MICHEL Administration Thiamine HCl 100 mg 10/30/23 09:00 11/05/23 09:36 Thiamine Hcl 100 Mg Tab PO 11/29/23 08:59 100 mg QAM MICHEL Administration Vitamin D 125 mcg 10/30/23 09:00 11/05/23 09:36 Cholecalciferol 125 Mcg (5,000 Units) Tab PO 11/29/23 08:59 125 mcg QAM MICHEL Administration (2) Dementia Dementia behavioral or psychological symptom: unspecified whether behavioral, psychotic, or mood disturbance or anxiety Dementia severity: unspecified se verity Dementia type: unspecified type Qualified Code(s): F03.90 - Unspecified dementia, unspecified severity, without behavioral disturbance, psychotic disturbance, mood disturbance, and anxiety (4) Depression Depression Type: unspecified Qualified Code(s): F32.A - Depression, unspecified
--- NOTE | 2023-11-06 14:55 | Hospitalist Progress Note ---
Date of Service November 06, 2023 Assessment & Plan (1) Unable to care for self: (2) Dementia: (3) Neurocognitive disorder: (4) Depression: Plan Mr Ragland is a 63-year-old male with PMH of dementia, heavy alcohol abuse, depression with psychotic features and catatonia, polysubstance abuse, cognitive decline since 2019 presenting with family stating they can no longer care for him at home. Per previous provider with addendum: History of combative behavior and dementia, recently admitted to our service from 10/02-10/13 awaiting placement and was ultimately discharged home by request of patient's . Was seen by psychiatry during previous admission and was started on aripiprazole 5 mg in the morning (in addition to continuing aripiprazole 10 mg at bedtime, which she had previously been on), as well as starting mirtazapine 15 mg at bedtime as well as vitamin D3, B12 and thiamine supplementations. Reportedly brought to the ED by with request for placement as family unable to provide care at home. UA noted to be positive for e coli. No further concerns at this time. Planning pursuit of placement,. No changes in management today; complex dispo planning Case management working with to fill out documents for placement. Patient remains medically stable. No updates to care plan. He was previously treated for the following: Neurocognitive disorder Unable to care for self History of depression Office of aging involved, complex social situation History of sexual disinhibition per 04/20/2023 reports, previously on estradiol 0.0375 patch Case management to help with placement Psych consulted on previous admission - continue Abilify 5mg daily, 10mg HS, Mirtazapine 15 HS Evaluated by neuro on previous admission - MRI brain unremarkable, f/u Neuro in 4-6 weeks for further w/u. Recommend outpatient neuropsychiatric testing and follow up with adult neurology in memory clinic (no show for 10/16 appt) PT/OT evaluations for placement: SNF recommended Delirium precautions Continue B12, thiamine and vitamin D supplements states she cannot take patient at this time due to her own medical issues and home dynamics Acute uncomplicated cystitis *resolved History of E coli on previous admission, treated UA abnormal Completed 7 days of CTX pansensitive e coli on culture labs stable DVT prophylaxis: SQ lovenox Code status: FULL PCP: JUAN JOSE Bolden Dispo: awaiting placement Admission and Anticipated Discharge Date Admission Date: October 29, 2023 Subjective Seen laying in bed. Denied acute concerns Review of Systems Review of Systems: All systems reviewed & are unremarkable except as noted in Subjective Physical Exam Physical Exam: General: Alert No acute distress Psych: Appropriate mood and affect Neuro: No gross deficits in the bed HEENT: NC/AT CV: RRR Resp: no increased effort of breathing Abdomen: Soft Extremities: No edema in lower extremities bilaterally. Results & Data Results & Data Vital Signs (Past 12 Hours) Vital Signs Temp Pulse Resp BP Pulse Ox O2 Del Method 11/06/23 14:41 36.7 C 61 16 96/63 L 94 Room Air 11/06/23 07:27 36.6 C 57 L 16 101/69 92 Room Air (2) Dementia Dementia behavioral or psychological symptom: unspecified whether behavioral, psychotic, or mood disturbance or anxiety Dementia severity: unspecified severity Dementia type: unspecified type Qualified Code(s): F03.90 - Unspecified dementia, unspecified severity, without behavioral disturbance, psychotic disturbance, mood disturbance, and anxiety (4) Depression Depression Type: unspecified Qualified Code(s): F32.A - Depression, unspecified
--- NOTE | 2023-11-07 12:21 | Hospitalist Progress Note ---
Date of Service November 07, 2023 Assessment & Plan (1) Unable to care for self: (2) Dementia: (3) Neurocognitive disorder: (4) Depression: Plan Mr Ragland is a 63-year-old male with PMH of dementia, heavy alcohol abuse, depression with psychotic features and catatonia, polysubstance abuse, cognitive decline since 2019 presenting with family stating they can no longer care for him at home. Per previous provider with addendum: History of combative behavior and dementia, recently admitted to our service from 10/02-10/13 awaiting placement and was ultimately discharged home by request of patient's . Was seen by psychiatry during previous admission and was started on aripiprazole 5 mg in the morning (in addition to continuing aripiprazole 10 mg at bedtime, which she had previously been on), as well as starting mirtazapine 15 mg at bedtime as well as vitamin D3, B12 and thiamine supplementations. Reportedly brought to the ED by with request for placement as family unable to provide care at home. UA noted to be positive for e coli. No further concerns at this time. Planning pursuit of placement,. No changes in management today; complex dispo planning Case management working with to fill out documents for placement. Patient remains medically stable. No updates to care plan. He was previously treated for the following: Neurocognitive disorder Unable to care for self History of depression Office of aging involved, complex social situation History of sexual disinhibition per 04/20/2023 reports, previously on estradiol 0.0375 patch Case management to help with placement Psych consulted on previous admission - continue Abilify 5mg daily, 10mg HS, Mirtazapine 15 HS Evaluated by neuro on previous admission - MRI brain unremarkable, f/u Neuro in 4-6 weeks for further w/u. Recommend outpatient neuropsychiatric testing and follow up with adult neurology in memory clinic (no show for 10/16 appt) PT/OT evaluations for placement: SNF recommended Delirium precautions Continue B12, thiamine and vitamin D supplements states she cannot take patient at this time due to her own medical issues and home dynamics Acute uncomplicated cystitis *resolved History of E coli on previous admission, treated UA abnormal Completed 7 days of CTX pansensitive e coli on culture labs stable DVT prophylaxis: SQ lovenox Code status: FULL PCP: JUAN JOSE Bolden Dispo: awaiting placement Admission and Anticipated Discharge Date Admission Date: October 29, 2023 Subjective Seen laying in bed. Denied acute concerns Review of Systems Review of Systems: All systems reviewed & are unremarkable except as noted in Subjective Physical Exam Physical Exam: General: Alert No acute distress Psych: Appropriate mood and affect Neuro: No gross deficits in the bed HEENT: NC/AT CV: RRR Resp: no increased effort of breathing Abdomen: Soft Extremities: No edema in lower extremities bilaterally. Results & Data Results & Data Vital Signs (Past 12 Hours) Vital Signs Temp Pulse Resp BP Pulse Ox O2 Del Method 11/07/23 08:08 104/66 11/07/23 07:24 36.5 C 55 L 16 100/67 95 Room Air (2) Dementia Dementia behavioral or psychological symptom: unspecified whether behavioral, psychotic, or mood disturbance or anxiety Dementia severity: unspecified severity Dementia type: unspecified type Qualified Code(s): F03.90 - Unspecified dementia, unspecified severity, without behavioral disturbance, psychotic disturbance, mood disturbance, and anxiety (4) Depression Depression Type: unspecified Qualified Code(s): F32.A - Depression, unspecified
--- NOTE | 2023-11-08 13:44 | Hospitalist Progress Note ---
Date of Service November 08, 2023 Assessment & Plan (1) Unable to care for self: (2) Dementia: (3) Neurocognitive disorder: (4) Depression: Plan Mr Ragland is a 63-year-old male with PMH of dementia, heavy alcohol abuse, depression with psychotic features and catatonia, polysubstance abuse, cognitive decline since 2019 presenting with family stating they can no longer care for him at home. Per previous provider with addendum: History of combative behavior and dementia, recently admitted to our service from 10/02-10/13 awaiting placement and was ultimately discharged home by request of patient's . Was seen by psychiatry during previous admission and was started on aripiprazole 5 mg in the morning (in addition to continuing aripiprazole 10 mg at bedtime, which she had previously been on), as well as starting mirtazapine 15 mg at bedtime as well as vitamin D3, B12 and thiamine supplementations. Reportedly brought to the ED by with request for placement as family unable to provide care at home. UA noted to be positive for e coli. No further concerns at this time. Planning pursuit of placement,. No changes in management today; complex dispo planning Case management working with to fill out documents for placement. Patient remains medically stable. No updates to care plan. He was previously treated for the following: Neurocognitive disorder Unable to care for self History of depression Office of aging involved, complex social situation History of sexual disinhibition per 04/20/2023 reports, previously on estradiol 0.0375 patch Case management to help with placement Psych consulted on previous admission - continue Abilify 5mg daily, 10mg HS, Mirtazapine 15 HS Evaluated by neuro on previous admission - MRI brain unremarkable, f/u Neuro in 4-6 weeks for further w/u. Recommend outpatient neuropsychiatric testing and follow up with adult neurology in memory clinic (no show for 10/16 appt) PT/OT evaluations for placement: SNF recommended Delirium precautions Continue B12, thiamine and vitamin D supplements states she cannot take patient at this time due to her own medical issues and home dynamics Acute uncomplicated cystitis *resolved History of E coli on previous admission, treated UA abnormal Completed 7 days of CTX pansensitive e coli on culture labs stable DVT prophylaxis: SQ lovenox Code status: FULL PCP: JUAN JOSE Bolden Dispo: awaiting placement Admission and Anticipated Discharge Date Admission Date: October 29, 2023 Subjective Seen laying in bed. Denied acute concerns Review of Systems Review of Systems: All systems reviewed & are unremarkable except as noted in Subjective Physical Exam Physical Exam: General: Alert No acute distress Psych: Appropriate mood and affect Neuro: No gross deficits in the bed HEENT: NC/AT CV: RRR Resp: no increased effort of breathing Abdomen: Soft Extremities: No edema in lower extremities bilaterally. Results & Data Results & Data Vital Signs (Past 12 Hours) Vital Signs Temp Pulse Resp BP Pulse Ox O2 Del Method 11/08/23 07:50 36.8 C 65 20 114/76 98 Room Air (2) Dementia Dementia behavioral or psychological symptom: unspecified whether behavioral, psychotic, or mood disturbance or anxiety Dementia severity: unspecified severity Dementia type: unspecified type Qualified Code(s): F03.90 - Unspecified dementia, unspecified severity, without behavioral disturbance, psychotic disturbance, mood disturbance, and anxiety (4) Depression Depression Type: unspecified Qualified Code(s): F32.A - Depression, unspecif ied
--- NOTE | 2023-11-09 13:33 | Hospitalist Progress Note ---
Date of Service November 09, 2023 Assessment & Plan (1) Unable to care for self: (2) Dementia: (3) Neurocognitive disorder: (4) Depression: Plan Mr Ragland is a 63-year-old male with PMH of dementia, heavy alcohol abuse, depression with psychotic features and catatonia, polysubstance abuse, cognitive decline since 2019 presenting with family stating they can no longer care for him at home. Per previous provider with addendum: History of combative behavior and dementia, recently admitted to our service from 10/02-10/13 awaiting placement and was ultimately discharged home by request of patient's . Was seen by psychiatry during previous admission and was started on aripiprazole 5 mg in the morning (in addition to continuing aripiprazole 10 mg at bedtime, which she had previously been on), as well as starting mirtazapine 15 mg at bedtime as well as vitamin D3, B12 and thiamine supplementations. Reportedly brought to the ED by with request for placement as family unable to provide care at home. UA noted to be positive for e coli. No further concerns at this time. Planning pursuit of placement,. No changes in management today; complex dispo planning Case management working with to fill out documents for placement. Patient remains medically stable. No updates to care plan. He was previously treated for the following: Neurocognitive disorder Unable to care for self History of depression Office of aging involved, complex social situation History of sexual disinhibition per 04/20/2023 reports, previously on estradiol 0.0375 patch Case management to help with placement Psych consulted on previous admission - continue Abilify 5mg daily, 10mg HS, Mirtazapine 15 HS Evaluated by neuro on previous admission - MRI brain unremarkable, f/u Neuro in 4-6 weeks for further w/u. Recommend outpatient neuropsychiatric testing and follow up with adult neurology in memory clinic (no show for 10/16 appt) PT/OT evaluations for placement: SNF recommended Delirium precautions Continue B12, thiamine and vitamin D supplements states she cannot take patient at this time due to her own medical issues and home dynamics Acute uncomplicated cystitis *resolved History of E coli on previous admission, treated UA abnormal Completed 7 days of CTX pansensitive e coli on culture labs stable DVT prophylaxis: SQ lovenox Code status: FULL PCP: JUAN JOSE Bolden Dispo: awaiting placement Admission and Anticipated Discharge Date Admission Date: October 29, 2023 Subjective Seen laying in bed. Denied acute concerns Review of Systems Review of Systems: All systems reviewed & are unremarkable except as noted in Subjective Physical Exam Physical Exam: General: Alert No acute distress Psych: Appropriate mood and affect Neuro: No gross deficits in the bed HEENT: NC/AT CV: RRR Resp: no increased effort of breathing Abdomen: Soft Extremities: No edema in lower extremities bilaterally. Results & Data Results & Data Vital Signs (Past 12 Hours) Vital Signs Temp Pulse Resp BP Pulse Ox O2 Del Method 11/09/23 07:45 36.6 C 50 L 16 103/68 92 Room Air (2) Dementia Dementia behavioral or psychological symptom: unspecified whether behavioral, psychotic, or mood disturbance or anxiety Dementia severity: unspecified severity Dementia type: unspecified type Qualified Code(s): F03.90 - Unspecified dementia, unspecified severity, without behavioral disturbance, psychotic disturbance, mood disturbance, and anxiety (4) Depression Depression Type: unspecified Qualified Code(s): F32.A - Depression, unspec ified
[2023-11-10 07:37] LABS: Hematocrit (blood only) 41.6 % (42.0-52.0); Hemoglobin 13.8 g/dl (14.0-18.0); Mean Corpuscular Hemoglobin 29.4 pg (25.0-34.0); Mean Corpuscular Hgb Conc 33.2 g/dL (32.0-36.0); Mean Corpuscular Volume 88.5 fL (80.0-100.0); Mean Platelet Volume 9.7 fL (9.4-12.4); Platelet Count 189 K/uL (130-400); RDW Coefficient of Variation 13.1 % (11.5-14.5); RDW Standard Deviation 42.4 fL (36.4-46.3); White Blood Count 6.33 K/ul (4.8-10.8)
[2023-11-10 07:40] LABS: BUN Creatinine Ratio 14.9 (10-20); Creatinine Clr Calc Pharmacy 75.3 ml/min; Est GFR (Non-African American) 77.7 ml/min
--- NOTE | 2023-11-10 11:43 | Hospitalist Progress Note ---
Date of Service November 10, 2023 Assessment & Plan (1) Unable to care for self: (2) Dementia: (3) Neurocognitive disorder: (4) Depression: Plan Mr Ragland is a 63-year-old male with PMH of dementia, heavy alcohol abuse, depression with psychotic features and catatonia, polysubstance abuse, cognitive decline since 2019 presenting with family stating they can no longer care for him at home. Per previous provider with addendum: History of combative behavior and dementia, recently admitted to our service from 10/02-10/13 awaiting placement and was ultimately discharged home by request of patient's . Was seen by psychiatry during previous admission and was started on aripiprazole 5 mg in the morning (in addition to continuing aripiprazole 10 mg at bedtime, which she had previously been on), as well as starting mirtazapine 15 mg at bedtime as well as vitamin D3, B12 and thiamine supplementations. Reportedly brought to the ED by with request for placement as family unable to provide care at home. UA noted to be positive for e coli. No further concerns at this time. Planning pursuit of placement,. No changes in management today; complex dispo planning Case management working with to fill out documents for placement. Patient remains medically stable. No updates to care plan. He was previously treated for the following: Neurocognitive disorder Unable to care for self History of depression Office of aging involved, complex social situation History of sexual disinhibition per 04/20/2023 reports, previously on estradiol 0.0375 patch Case management to help with placement Psych consulted on previous admission - continue Abilify 5mg daily, 10mg HS, Mirtazapine 15 HS Evaluated by neuro on previous admission - MRI brain unremarkable, f/u Neuro in 4-6 weeks for further w/u. Recommend outpatient neuropsychiatric testing and follow up with adult neurology in memory clinic (no show for 10/16 appt) PT/OT evaluations for placement: SNF recommended Delirium precautions Continue B12, thiamine and vitamin D supplements states she cannot take patient at this time due to her own medical issues and home dynamics Acute uncomplicated cystitis *resolved History of E coli on previous admission, treated UA abnormal Completed 7 days of CTX pansensitive e coli on culture labs stable DVT prophylaxis: SQ lovenox Code status: FULL PCP: JUAN JOSE Bolden Dispo: awaiting placement Admission and Anticipated Discharge Date Admission Date: October 29, 2023 Subjective Seen laying in bed. Denied acute concerns except wanted a soda Review of Systems Review of Systems: All systems reviewed & are unremarkable except as noted in Subjective Physical Exam Physical Exam: General: Alert No acute distress Psych: Appropriate mood and affect Neuro: No gross deficits in the bed HEENT: NC/AT CV: RRR Resp: breath ounds clear bilaterally, no increased effort of breathing Abdomen: Soft Extremities: No edema in lower extremities bilaterally. Results & Data Results & Data Vital Signs (Past 12 Hours) Vital Signs Temp Pulse Resp BP Pulse Ox O2 Del Method 11/10/23 07:36 36.5 C 51 L 16 100/65 96 Room Air (2) Dementia Dementia behavioral or psychological symptom: unspecified whether behavioral, psychotic, or mood disturbance or anxiety Dementia severity: unspecified severity Dementia type: unspecified type Qualified Code(s): F03.90 - Unspecified dementia, unspecified severity, without behavioral disturbance, psychotic disturbance, mood disturbance, and anxiety (4) Depression Depression Type: unspecified Qualified Code(s): F32.A - Depression, unspecified
--- NOTE | 2023-11-11 11:35 | Hospitalist Progress Note ---
Date of Service November 11, 2023 Assessment & Plan (1) Unable to care for self: (2) Dementia: (3) Neurocognitive disorder: (4) Depression: Plan Mr Ragland is a 63-year-old male with PMH of dementia, heavy alcohol abuse, depression with psychotic features and catatonia, polysubstance abuse, cognitive decline since 2019 presenting with family stating they can no longer care for him at home. Per previous provider with addendum: History of combative behavior and dementia, recently admitted to our service from 10/02-10/13 awaiting placement and was ultimately discharged home by request of patient's . Was seen by psychiatry during previous admission and was started on aripiprazole 5 mg in the morning (in addition to continuing aripiprazole 10 mg at bedtime, which she had previously been on), as well as starting mirtazapine 15 mg at bedtime as well as vitamin D3, B12 and thiamine supplementations. Reportedly brought to the ED by with request for placement as family unable to provide care at home. UA noted to be positive for e coli. No further concerns at this time. Planning pursuit of placement,. No changes in management today; complex dispo planning Case management working with to fill out documents for placement. Patient remains medically stable. No updates to care plan. He was previously treated for the following: Neurocognitive disorder Unable to care for self History of depression Office of aging involved, complex social situation History of sexual disinhibition per 04/20/2023 reports, previously on estradiol 0.0375 patch Case management to help with placement Psych consulted on previous admission - continue Abilify 5mg daily, 10mg HS, Mirtazapine 15 HS Evaluated by neuro on previous admission - MRI brain unremarkable, f/u Neuro in 4-6 weeks for further w/u. Recommend outpatient neuropsychiatric testing and follow up with adult neurology in memory clinic (no show for 10/16 appt) PT/OT evaluations for placement: SNF recommended Delirium precautions Continue B12, thiamine and vitamin D supplements states she cannot take patient at this time due to her own medical issues and home dynamics Acute uncomplicated cystitis *resolved History of E coli on previous admission, treated UA abnormal Completed 7 days of CTX pansensitive e coli on culture labs stable DVT prophylaxis: SQ lovenox Code status: FULL PCP: JUAN JOSE Bolden Dispo: awaiting placement Admission and Anticipated Discharge Date Admission Date: October 29, 2023 Subjective Seen laying in bed. Denied acute concerns Review of Systems Review of Systems: All systems reviewed & are unremarkable except as noted in Subjective Physical Exam Physical Exam: General: Alert No acute distress Psych: Appropriate mood and affect Neuro: No gross deficits in the bed HEENT: NC/AT CV: RRR Resp: no increased effort of breathing Abdomen: Soft Extremities: No edema in lower extremities bilaterally. Results & Data Results & Data Vital Signs (Past 12 Hours) Vital Signs Temp Pulse Resp BP Pulse Ox O2 Del Method 11/11/23 07:30 36.4 C L 50 L 16 112/74 96 Room Air 11/10/23 23:51 36.5 C 58 L 17 103/77 93 Room Air (2) Dementia Dementia behavioral or psychological symptom: unspecified whether behavioral, psychotic, or mood disturbance or anxiety Dementia severity: unspecified severity Dementia type: unspecified type Qualified Code(s): F03.90 - Unspecified dementia, unspecified severity, without behavioral disturbance, psychotic disturbance, mood disturbance, and anxiety (4) Depression Depression Type: unspecified Qualified Code(s): F32.A - Depression, unspecified
--- NOTE | 2023-11-12 12:13 | Hospitalist Progress Note ---
Date of Service November 12, 2023 Assessment & Plan (1) Unable to care for self: (2) Dementia: (3) Neurocognitive disorder: (4) Depression: Plan Mr Ragland is a 63-year-old male with PMH of dementia, heavy alcohol abuse, depression with psychotic features and catatonia, polysubstance abuse, cognitive decline since 2019 presenting with family stating they can no longer care for him at home. Per previous provider with addendum: History of combative behavior and dementia, recently admitted to our service from 10/02-10/13 awaiting placement and was ultimately discharged home by request of patient's . Was seen by psychiatry during previous admission and was started on aripiprazole 5 mg in the morning (in addition to continuing aripiprazole 10 mg at bedtime, which she had previously been on), as well as starting mirtazapine 15 mg at bedtime as well as vitamin D3, B12 and thiamine supplementations. Reportedly brought to the ED by with request for placement as family unable to provide care at home. UA noted to be positive for e coli. No further concerns at this time. Planning pursuit of placement,. No changes in management today; complex dispo planning Case management working with to fill out documents for placement. He was previously treated for the following: Neurocognitive disorder Unable to care for self History of depression Office of aging involved, complex social situation History of sexual disinhibition per 04/20/2023 reports - previously on estradiol 0.0375 patch -> contacted psychiatry to review Case management to help with placement Psych consulted on previous admission - continue Abilify 5mg daily, 10mg HS, Mirtazapine 15 HS Evaluated by neuro on previous admission - MRI brain unremarkable, f/u Neuro in 4-6 weeks for further w/u. Recommend outpatient neuropsychiatric testing and follow up with adult neurology in memory clinic (no show for 10/16 appt) PT/OT evaluations for placement: SNF recommended Delirium precautions Continue B12, thiamine and vitamin D supplements states she cannot take patient at this time due to her own medical issues and home dynamics Acute uncomplicated cystitis *resolved History of E coli on previous admission, treated UA abnormal Completed 7 days of CTX pansensitive e coli on culture labs stable DVT prophylaxis: SQ lovenox Code status: FULL PCP: JUAN JOSE Bolden Dispo: awaiting placement Admission and Anticipated Discharge Date Admission Date: October 29, 2023 Subjective Pt seen in follow up for inability to take care of himself, dementia, neurocognitive disorder, hx of etoh abuse Denies any fever, chills, chest pain, shortness of breath, abd. pain Discussed w/ RN - pt has been cooperative with RN I contacted psych - to review his previous med - estrogen patch Review of Systems Review of Systems: All systems reviewed & are unremarkable except as noted in Subjective Physical Exam Physical Exam: General: Alert No acute distress Psych: Appropriate mood and affect, cooperative Neuro: awake, alert, speech fluent, answers simple questions appropriately, moves extremities HEENT: NC/AT CV: RRR Resp: no increased effort of breathing, CTAB Abdomen: Soft, nontender Extremities: No edema in lower extremities bilaterally. Results & Data Results & Data Vital Signs (Past 12 Hours) Vital Signs Temp Pulse Resp BP Pulse Ox O2 Del Method 11/12/23 06:58 36.4 C L 53 L 16 121/76 94 Room Air Medications Administered Current Inpatient Medications Acetaminophen (Acetaminophen 325 Mg Tab) 650 mg PO Q4H PRN PRN Reason: pain/fever Stop: 11/28/23 18:07 Aripiprazole (Aripiprazole 10 Mg Tab) 10 mg PO HS [facility] Stop: 11/28/23 20:59 Last Admin: 11/11/23 21:25 Dose: 10 mg Aripiprazole (Aripiprazole 5 Mg Tab) 5 mg PO QAM [facility] Stop: 11/29/23 08:59 Last Admin: 11/12/23 08:00 Dose: 5 mg Cyanocobalamin (Cyanocobalamin (B-12) 100 Mcg Tablet) 100 mcg PO QAM [facility] Stop: 11/29/23 08:59 Last Admin: 11/12/23 08:00 Dose: 100 mcg Enoxaparin Sodium (Enoxaparin Inj 40 Mg/0.4 Ml Syr) 40 mg SQ Q24H [facility] Stop: 11/28/23 18:29 Last Admin: 11/11/23 18:10 Dose: 40 mg Mirtazapine (Mirtazapine Tab 15 Mg Tab) 15 mg PO HS [facility] Stop: 11/28/23 20:59 Last Admin: 11/11/23 21:25 Dose: 15 mg Ondansetron HCl (Ondansetron Inj 2 Mg/Ml 2 Ml Vial) 4 mg IV Q6H PRN PRN Reason: Nausea Stop: 11/28/23 18:07 Polyethylene Glycol (Polyethylene (Miralax) 17 Gm Pack) 17 gm PO DAILY PRN PRN Reason: Constipation Stop: 11/28/23 18:07 Thiamine HCl (Thiamine Hcl 100 Mg Tab) [facility] [place] Stop: 11/29/23 08:59 Last Admin: 11/12/23 08:00 Dose: 100 mg Vitamin D (Cholecalciferol 125 Mcg (5,000 Units) Tab) 125 mcg [facility] [place] Stop: 11/29/23 08:59 Last Admin: 11/12/23 08:00 Dose: 125 mcg (2) Dementia Dementia behavioral or psychological symptom: unspecified whether behavioral, psychotic, or mood disturbance or anxiety Dementia severity: unspecified severity Dementia type: unspecified type Qualified Code(s): F03.90 - Unspecified dementia, unspecified severity, without behavioral disturbance, psychotic disturbance, mood disturbance, and anxiety (4) Depression Depression Type: unspecified Qualified Code(s): F32.A - Depression, u nspecified
[2023-11-13 06:32] LABS: Hemoglobin 14.2 g/dl (14.0-18.0); Mean Corpuscular Hemoglobin 29.6 pg (25.0-34.0); Mean Corpuscular Hgb Conc 33.8 g/dL (32.0-36.0); Mean Corpuscular Volume 87.7 fL (80.0-100.0); Mean Platelet Volume 9.8 fL (9.4-12.4); Platelet Count 173 K/uL (130-400); RDW Coefficient of Variation 12.9 % (11.5-14.5); RDW Standard Deviation 41.4 fL (36.4-46.3); Red Blood Count 4.79 M/uL (4.70-6.10); White Blood Count 5.72 K/ul (4.8-10.8)
[2023-11-13 06:46] LABS: BUN Creatinine Ratio 11.9 (10-20); Calcium 8.7 mg/dl (8.6-10.3); Creatinine Clr Calc Pharmacy 75.3 ml/min; Est GFR (Non-African American) 77.7 ml/min; Magnesium 1.8 mg/dl (1.7-2.4); Phosphorus 3.6 mg/dl (2.5-4.9); Potassium 4.1 mmol/L (3.5-5.1)
--- NOTE | 2023-11-13 08:24 | Hospitalist Progress Note ---
Date of Service November 13, 2023 Assessment & Plan (1) Unable to care for self: (2) Dementia: (3) Neurocognitive disorder: (4) Depression: Plan Mr Ragland is a 63-year-old male with PMH of dementia, heavy alcohol abuse, depression with psychotic features and catatonia, polysubstance abuse, cognitive decline since 2019 presenting with family stating they can no longer care for him at home. Per previous provider with addendum: History of combative behavior and dementia, recently admitted to our service from 10/02-10/13 awaiting placement and was ultimately discharged home by request of patient's . Was seen by psychiatry during previous admission and was started on aripiprazole 5 mg in the morning (in addition to continuing aripiprazole 10 mg at bedtime, which she had previously been on), as well as starting mirtazapine 15 mg at bedtime as well as vitamin D3, B12 and thiamine supplementations. Reportedly brought to the ED by with request for placement as family unable to provide care at home. UA noted to be positive for e coli. No further concerns at this time. Planning pursuit of placement,. No changes in management today; complex dispo planning Case management working with to fill out documents for placement. He was previously treated for the following: Neurocognitive disorder Unable to care for self History of depression Office of aging involved, complex social situation History of sexual disinhibition per 04/20/2023 reports - previously on estradiol 0.0375 patch -> contacted psychiatry yesterday to review -> waiting to hear back Case management to help with placement Psych consulted on previous admission - continue Abilify 5mg daily, 10mg HS, Mirtazapine 15 HS Evaluated by neuro on previous admission - MRI brain unremarkable, f/u Neuro in 4-6 weeks for further w/u. Recommend outpatient neuropsychiatric testing and follow up with adult neurology in memory clinic (no show for 10/16 appt) PT/OT evaluations for placement: SNF recommended Delirium precautions Continue B12, thiamine and vitamin D supplements states she cannot take patient at this time due to her own medical issues and home dynamics Acute uncomplicated cystitis *resolved History of E coli on previous admission, treated UA abnormal Completed 7 days of CTX pansensitive e coli on culture labs stable DVT prophylaxis: SQ lovenox Code status: FULL PCP: JUAN JOSE Bolden Dispo: awaiting placement Admission and Anticipated Discharge Date Admission Date: October 29, 2023 Subjective Pt seen in follow up for inability to take care of himself, dementia, neurocognitive disorder, hx of etoh abuse Denies any fever, chills, chest pain, shortness of breath, abd. pain Pt has been cooperative I contacted psych yesterday - to review his previous med - estrogen patch -> waiting to hear back Review of Systems Review of Systems: All systems reviewed & are unremarkable except as noted in Subjective Physical Exam Physical Exam: General: Alert No acute distress Psych: Appropriate mood and affect, cooperative Neuro: awake, alert, speech fluent, answers simple questions appropriately, moves extremities HEENT: NC/AT CV: RRR Resp: no increased effort of breathing, CTAB Abdomen: Soft, nontender Extremities: No edema in lower extremities bilaterally. Results & Data Results & Data Vital Signs (Past 12 Hours) Vital Signs Temp Pulse Resp BP Pulse Ox O2 Del Method 11/13/23 07:02 36.4 C L 55 L 16 105/70 95 Room Air Laboratory Results 11/13/23 Range/Units 05:46 WBC 5.72 (4.8-10.8) K/ul RBC 4.79 (4.70-6.10) M/uL Hgb 14.2 (14.0-18.0) g/dl Hct 42.0 (42.0-52.0) % MCV 87.7 (80.0-100.0) fL MCH 29.6 (25.0-34.0) pg MCHC 33.8 (32.0-36.0) g/dL RDW Std Deviation 41.4 (36.4-46.3) fL RDW Coeff of Bhavesh 12.9 (11.5-14.5) % Plt Count 173 (130-400) K/uL MPV 9.8 (9.4-12.4) fL Sodium 140 (136-145) mmol/L Potassium 4.1 (3.5-5.1) mmol/L Chloride 104 (98-107) mmol/L Carbon Dioxide 31 (21-32) mmol/L Anion Gap 5 (3-11) BUN 12 (6-23) mg/dl Creatinine 1.01 (0.6-1.4) mg/dl Est Cr Clr Drug Dosing 75.3 ml/min Est GFR ( Amer) 90.0 ml/min Est GFR (Non-Af Amer) 77.7 ml/min BUN/Creatinine Ratio 11.9 (10-20) Glucose 93 (70-99(Fasting)) mg/dl Calcium 8.7 (8.6-10.3) mg/dl Phosphorus 3.6 (2.5-4.9) mg/dl Magnesium 1.8 (1.7-2.4) mg/dl Medications Administered Current Inpatient Medications Acetaminophen (Acetaminophen 325 Mg Tab) 650 mg PO Q4H PRN PRN Reason: pain/fever Stop: 11/28/23 18:07 Aripiprazole (Aripiprazole 10 Mg Tab) 10 mg PO [facility] Stop: 11/28/23 20:59 Last Admin: 11/12/23 21:47 Dose: 10 mg Aripiprazole (Aripiprazole 5 Mg Tab) 5 mg PO [facility] Stop: 11/29/23 08:59 Last Admin: 11/13/23 08:13 Dose: 5 mg Cyanocobalamin (Cyanocobalamin (B-12) 100 Mcg Tablet) 100 mcg PO [facility] Stop: 11/29/23 08:59 Last Admin: 11/13/23 08:14 Dose: 100 mcg Enoxaparin Sodium (Enoxaparin Inj 40 Mg/0.4 Ml Syr) 40 mg SQ Q24H [facility] Stop: 11/28/23 18:29 Last Admin: 11/12/23 18:20 Dose: 40 mg Mirtazapine (Mirtazapine Tab 15 Mg Tab) 15 mg PO [facility] Stop: 11/28/23 20:59 Last Admin: 11/12/23 21:47 Dose: 15 mg Ondansetron HCl (Ondansetron Inj 2 Mg/Ml 2 Ml Vial) 4 mg IV Q6H PRN PRN Reason: Nausea Stop: 11/28/23 18:07 Polyethylene Glycol (Polyethylene (Miralax) 17 Gm Pack) 17 gm PO DAILY PRN PRN Reason: Constipation Stop: 11/28/23 18:07 Thiamine HCl (Thiamine Hcl 100 Mg Tab) 100 mg PO [facility] Stop: 11/29/23 08:59 Last Admin: 11/13/23 08:14 Dose: 100 mg Vitamin D (Cholecalciferol 125 Mcg (5,000 Units) Tab) 125 mcg PO QAM [facility] Stop: 11/29/23 08:59 Last Admin: 11/13/23 08:14 Dose: 125 mcg (2) Dementia Dementia behavioral or psychological symptom: unspecified whether behavioral, psychotic, or mood disturbance or anxiety Dementia severity: unspecified severity Dementia type: unspecified type Qualified Code(s): F03.90 - Unspecified dementia, unspecified severity, without behavioral disturbance, psychotic disturbance, mood disturbance, and anxiety (4) Depression Depression Type: unspecified Qualified Code(s): F32.A - Depression, unspecified
--- NOTE | 2023-11-14 08:16 | Hospitalist Progress Note ---
Date of Service November 14, 2023 Assessment & Plan (1) Unable to care for self: (2) Dementia: (3) Neurocognitive disorder: (4) Depression: Plan Mr Ragland is a 63-year-old male with PMH of dementia, heavy alcohol abuse, depression with psychotic features and catatonia, polysubstance abuse, cognitive decline since 2019 presenting with family stating they can no longer care for him at home. Per previous provider with addendum: History of combative behavior and dementia, recently admitted to our service from 10/02-10/13 awaiting placement and was ultimately discharged home by request of patient's . Was seen by psychiatry during previous admission and was started on aripiprazole 5 mg in the morning (in addition to continuing aripiprazole 10 mg at bedtime, which she had previously been on), as well as starting mirtazapine 15 mg at bedtime as well as vitamin D3, B12 and thiamine supplementations. Reportedly brought to the ED by with request for placement as family unable to provide care at home. UA noted to be positive for e coli. No further concerns at this time. Planning pursuit of placement,. No changes in management today; complex dispo planning Case management working with to fill out documents for placement. He was previously treated for the following: Neurocognitive disorder Unable to care for self History of depression Office of aging involved, complex social situation History of sexual disinhibition per 04/20/2023 reports - previously on estradiol 0.0375 patch -> I contacted psych regarding estrogen patch -> not clear why /when stopped but seems as unnecessary to resume at this time Case management to help with placement Psych consulted on previous admission - continue Abilify 5mg daily, 10mg HS, Mirtazapine 15 HS Evaluated by neuro on previous admission - MRI brain unremarkable, f/u Neuro in 4-6 weeks for further w/u. Recommend outpatient neuropsychiatric testing and follow up with adult neurology in memory clinic (no show for 10/16 appt) PT/OT evaluations for placement: SNF recommended Delirium precautions Continue B12, thiamine and vitamin D supplements states she cannot take patient at this time due to her own medical issues and home dynamics Pt seems to be cooperative now w/ hosp. staff Acute uncomplicated cystitis *resolved History of E coli on previous admission, treated UA abnormal Completed 7 days of CTX pansensitive e coli on culture labs stable DVT prophylaxis: SQ lovenox Code status: FULL PCP: JUAN JOSE Bolden Dispo: awaiting placement Admission and Anticipated Discharge Date Admission Date: October 29, 2023 Subjective Pt seen in follow up for inability to take care of himself, dementia, neurocognitive disorder, hx of etoh abuse Denies any fever, chills, chest pain, shortness of breath, abd. pain Pt has been cooperative I contacted psych regarding estrogen patch -> not clear why /when stopped but seems as unnecessary to resume at this time Discussed with RN today - pt cooperative Review of Systems Review of Systems: All systems reviewed & are unremarkable except as noted in Subjective Physical Exam Physical Exam: General: Alert No acute distress Psych: Appropriate mood and affect, cooperative Neuro: awake, alert, speech fluent, answers simple questions appropriately, moves extremities HEENT: NC/AT CV: RRR Resp: no increased effort of breathing, CTAB Abdomen: Soft, nontender Extremities: No edema in lower extremities bilaterally. Results & Data Results & Data Medications Administered Current Inpatient Medications Acetaminophen (Acetaminophen 325 Mg Tab) 650 mg PO Q4H PRN PRN Reason: pain/fever Stop: 11/28/23 18:07 Aripiprazole (Aripiprazole 10 Mg Tab) 10 mg PO HS [facility] Stop: 11/28/23 20:59 Last Admin: 11/13/23 21:12 Dose: 10 mg Aripiprazole (Aripiprazole 5 Mg Tab) 5 mg PO QAM [facility] Stop: 11/29/23 08:59 Last Admin: 11/13/23 08:13 Dose: 5 mg Cyanocobalamin (Cyanocobalamin (B-12) 100 Mcg Tablet) 100 mcg PO QAM [facility] Stop: 11/29/23 08:59 Last Admin: 11/13/23 08:14 Dose: 100 mcg Enoxaparin Sodium (Enoxaparin Inj 40 Mg/0.4 Ml Syr) 40 mg SQ Q24H [facility] Stop: 11/28/23 18:29 Last Admin: 11/13/23 18:01 Dose: 40 mg Mirtazapine (Mirtazapine Tab 15 Mg Tab) 15 mg PO HS [facility] Stop: 11/28/23 20:59 Last Admin: 11/13/23 21:12 Dose: 15 mg Ondansetron HCl (Ondansetron Inj 2 Mg/Ml 2 Ml Vial) 4 mg IV Q6H PRN PRN Reason: Nausea Stop: 11/28/23 18:07 Polyethylene Glycol (Polyethylene (Miralax) 17 Gm Pack) 17 gm PO DAILY PRN PRN Reason: Constipation Stop: 11/28/23 18:07 Thiamine HCl ([facility] Hcl 100 Mg Tab) [facility] [place]: 11/29/23 08:59 Last Admin: 11/13/23 08:14 Dose: 100 mg Vitamin D (Cholecalciferol 125 Mcg (5,000 Units) Tab) 125 [facility]cg [facility] Stop: 11/29/23 08:59 Last Admin: 11/13/23 08:14 Dose: 125 mcg (2) Dementia Dementia behavioral or psychological symptom: unspecified whether behavioral, psychotic, or mood disturbance or anxiety Dementia severity: unspecified severity Dementia type: unspecified type Qualified Code(s): F03.90 - Unspecified dementia, unspecified severity, without behavioral disturbance, psychotic disturbance, mood disturbance, and anxiety (4) Depression Depression Type: unspecified Qualified Code(s): F32.A - Depression, unspecified
--- NOTE | 2023-11-15 07:43 | Hospitalist Progress Note ---
Date of Service November 15, 2023 Assessment & Plan (1) Unable to care for self: (2) Dementia: (3) Neurocognitive disorder: (4) Depression: Plan Mr Ragland is a 63-year-old male with PMH of dementia, heavy alcohol abuse, depression with psychotic features and catatonia, polysubstance abuse, cognitive decline since 2019 presenting with family stating they can no longer care for him at home. Per previous provider with addendum: History of combative behavior and dementia, recently admitted to our service from 10/02-10/13 awaiting placement and was ultimately discharged home by request of patient's . Was seen by psychiatry during previous admission and was started on aripiprazole 5 mg in the morning (in addition to continuing aripiprazole 10 mg at bedtime, which she had previously been on), as well as starting mirtazapine 15 mg at bedtime as well as vitamin D3, B12 and thiamine supplementations. Reportedly brought to the ED by with request for placement as family unable to provide care at home. UA noted to be positive for e coli. No further concerns at this time. Planning pursuit of placement,. No changes in management today; complex dispo planning Case management working with to fill out documents for placement. He was previously treated for the following: Neurocognitive disorder Unable to care for self History of depression Office of aging involved, complex social situation History of sexual disinhibition per 04/20/2023 reports - previously on estradiol 0.0375 patch -> discussed with psych earlier regarding estrogen patch -> not clear why /when stopped but seems as unnecessary to resume at this time Case management to help with placement Psych consulted on previous admission - continue Abilify 5mg daily, 10mg HS, Mirtazapine 15 HS Evaluated by neuro on previous admission - MRI brain unremarkable, f/u Neuro in 4-6 weeks for further w/u. Recommend outpatient neuropsychiatric testing and follow up with adult neurology in memory clinic (no show for 10/16 appt) PT/OT evaluations for placement: SNF recommended Delirium precautions Continue B12, thiamine and vitamin D supplements states she cannot take patient at this time due to her own medical issues and home dynamics Pt seems to be cooperative now w/ hosp. staff Acute uncomplicated cystitis *resolved History of E coli on previous admission, treated UA abnormal Completed 7 days of CTX pansensitive e coli on culture labs stable DVT prophylaxis: SQ lovenox Code status: FULL PCP: JUAN JOSE Bolden Dispo: awaiting placement Admission and Anticipated Discharge Date Admission Date: October 29, 2023 Subjective Pt seen in follow up for inability to take care of himself, dementia, neurocognitive disorder, hx of etoh abuse Denies any fever, chills, chest pain, shortness of breath, abd. pain Pt has been cooperative I contacted psych regarding estrogen patch earlier -> not clear why /when stopped but seems as unnecessary to resume at this time Review of Systems Review of Systems: All systems reviewed & are unremarkable except as noted in Subjective Physical Exam Physical Exam: General: Alert No acute distress Psych: Appropriate mood and affect, cooperative Neuro: awake, alert, speech fluent, answers simple questions appropriately, moves extremities HEENT: NC/AT CV: RRR Resp: no increased effort of breathing, CTAB Abdomen: Soft, nontender Extremities: No edema in lower extremities bilaterally. Results & Data Results & Data Vital Signs (Past 12 Hours) Vital Signs Temp Pulse Resp BP Pulse Ox O2 Del Method 11/14/23 20:06 36.7 C 59 L 19 99/69 L 93 Room Air Medications Administered Current Inpatient Medications Acetaminophen (Acetaminophen 325 Mg Tab) 650 mg PO Q4H PRN PRN Reason: pain/fever Stop: 11/28/23 18:07 Aripiprazole (Aripiprazole 10 Mg Tab) 10 mg PO HS [facility] Stop: 11/28/23 20:59 Last Admin: 11/14/23 20:05 Dose: 10 mg Aripiprazole (Aripiprazole 5 Mg Tab) 5 mg PO QAM [facility] Stop: 11/29/23 08:59 Last Admin: 11/14/23 08:25 Dose: 5 mg Cyanocobalamin (Cyanocobalamin (B-12) 100 Mcg Tablet) 100 mcg PO QAM [facility] Stop: 11/29/23 08:59 Last Admin: 11/14/23 08:25 Dose: 100 mcg Enoxaparin Sodium (Enoxaparin Inj 40 Mg/0.4 Ml Syr) 40 mg SQ Q24H [facility] Stop: 11/28/23 18:29 Last Admin: 11/14/23 18:21 Dose: 40 mg Mirtazapine (Mirtazapine Tab 15 Mg Tab) 15 mg PO HS [facility] Stop: 11/28/23 20:59 Last Admin: 11/14/23 20:05 Dose: 15 mg Ondansetron HCl (Ondansetron Inj 2 Mg/Ml 2 Ml Vial) 4 mg IV Q6H PRN PRN Reason: Nausea Stop: 11/28/23 18:07 Polyethylene Glycol (Polyethylene (Miralax) 17 Gm Pack) 17 gm PO DAILY PRN PRN Reason: Constipation Stop: 11/28/23 18:07 Thiamine HCl (Th[facility] Hcl 100 Mg Tab) [facility] [place] [facility]: 11/29/23 08:59 Last Admin: 11/14/23 08:25 Dose: 100 mg Vitamin D (Cholecalciferol 125 Mcg (5,000 Units) Tab) 125 mcg PO QAM [facility] Stop: 11/29/23 08:59 Last Admin: 11/14/23 08:25 Dose: 125 mcg (2) Dementia Dementia behavioral or psychological symptom: unspecified whether behavioral, psychotic, or mood disturbance or anxiety Dementia severity: unspecified severity Dementia type: unspecified type Qualified Code(s): F03.90 - Unspecified dementia, unspecified severity, without behavioral disturbance, psychotic disturbance, mood disturbance, and anxiety (4) Depression Depression Type: unspecified Qualified Code(s): F32.A - Depression, unspecified
--- NOTE | 2023-11-16 08:41 | Hospitalist Progress Note ---
Date of Service November 16, 2023 Assessment & Plan (1) Unable to care for self: (2) Dementia: (3) Neurocognitive disorder: (4) Depression: Plan Mr Ragland is a 63-year-old male with PMH of dementia, heavy alcohol abuse, depression with psychotic features and catatonia, polysubstance abuse, cognitive decline since 2019 presenting with family stating they can no longer care for him at home. Per previous provider with addendum: History of combative behavior and dementia, recently admitted to our service from 10/02-10/13 awaiting placement and was ultimately discharged home by request of patient's . Was seen by psychiatry during previous admission and was started on aripiprazole 5 mg in the morning (in addition to continuing aripiprazole 10 mg at bedtime, which she had previously been on), as well as starting mirtazapine 15 mg at bedtime as well as vitamin D3, B12 and thiamine supplementations. Reportedly brought to the ED by with request for placement as family unable to provide care at home. UA noted to be positive for e coli. No further concerns at this time. Planning pursuit of placement,. No changes in management today; complex dispo planning Case management working with to fill out documents for placement. He was previously treated for the following: Neurocognitive disorder Unable to care for self History of depression Office of aging involved, complex social situation History of sexual disinhibition per 04/20/2023 reports - previously on estradiol 0.0375 patch -> discussed with psych earlier regarding estrogen patch -> not clear why /when stopped but seems as unnecessary to resume at this time Case management to help with placement Psych consulted on previous admission - continue Abilify 5mg daily, 10mg HS, Mirtazapine 15 HS Evaluated by neuro on previous admission - MRI brain unremarkable, f/u Neuro in 4-6 weeks for further w/u. Recommend outpatient neuropsychiatric testing and follow up with adult neurology in memory clinic (no show for 10/16 appt) PT/OT evaluations for placement: SNF recommended Delirium precautions Continue B12, thiamine and vitamin D supplements states she cannot take patient at this time due to her own medical issues and home dynamics Pt seems to be cooperative now w/ hosp. staff Acute uncomplicated cystitis *resolved History of E coli on previous admission, treated UA abnormal Completed 7 days of CTX pansensitive e coli on culture labs stable DVT prophylaxis: SQ lovenox Code status: FULL PCP: JUAN JOSE Bolden Dispo: awaiting placement Admission and Anticipated Discharge Date Admission Date: October 29, 2023 Subjective Pt seen in follow up for inability to take care of himself, dementia, neurocognitive disorder, hx of etoh abuse Denies any fever, chills, chest pain, shortness of breath, abd. pain Pt has been cooperative I contacted and discussed with psych regarding estrogen patch earlier -> not clear why /when stopped but seems as unnecessary to resume at this time Review of Systems Review of Systems: All systems reviewed & are unremarkable except as noted in Subjective Physical Exam Physical Exam: General: Alert No acute distress Psych: Appropriate mood and affect, cooperative Neuro: awake, alert, speech fluent, answers simple questions appropriately, moves extremities HEENT: NC/AT CV: RRR Resp: no increased effort of breathing, CTAB Abdomen: Soft, nontender Extremities: No edema in lower extremities bilaterally. Results & Data Results & Data Vital Signs (Past 12 Hours) Vital Signs Temp Pulse Resp BP Pulse Ox O2 Del Method 11/16/23 08:00 Room Air 11/16/23 07:46 36.4 C L 50 L 18 107/70 95 Room Air Medications Administered Current Inpatient Medications Acetaminophen (Acetaminophen 325 Mg Tab) 650 mg PO Q4H PRN PRN Reason: pain/fever Stop: 11/28/23 18:07 Aripiprazole (Aripiprazole 10 Mg Tab) 10 mg PO HS [facility] Stop: 11/28/23 20:59 Last Admin: 11/15/23 20:24 Dose: 10 mg Aripiprazole (Aripiprazole 5 Mg Tab) 5 mg PO QAM [facility] Stop: 11/29/23 08:59 Last Admin: 11/16/23 07:46 Dose: 5 mg Cyanocobalamin (Cyanocobalamin (B-12) 100 Mcg Tablet) 100 mcg PO QAM [facility] Stop: 11/29/23 08:59 Last Admin: 11/16/23 07:46 Dose: 100 mcg Enoxaparin Sodium (Enoxaparin Inj 40 Mg/0.4 Ml Syr) 40 mg SQ Q24H [facility] Stop: 11/28/23 18:29 Last Admin: 11/15/23 18:49 Dose: 40 mg Mirtazapine (Mirtazapine Tab 15 Mg Tab) 15 mg PO HS [facility] Stop: 11/28/23 20:59 Last Admin: 11/15/23 20:24 Dose: 15 mg Ondansetron HCl (Ondansetron Inj 2 Mg/Ml 2 Ml Vial) 4 mg IV Q6H PRN PRN Reason: Nausea Stop: 11/28/23 18:07 Polyethylene Glycol (Polyethylene (Miralax) 17 Gm Pack) 17 gm PO DAILY PRN PRN Reason: Constipation Stop: 11/28/23 18:07 Thiamine HCl (Thiamine Hcl 100 Mg Tab) 100 mg PO QAM [facility] Stop: 11/29/23 08:59 Last Admin: 11/16/23 07:46 Dose: 100 mg Vitamin D (Cholecalciferol 125 Mcg (5,000 Units) Tab) 125 mcg PO QAM [facility] Stop: 11/29/23 08:59 Last Admin: 11/16/23 07:46 Dose: 125 mcg (2) Dementia Dementia behavioral or psychological symptom: unspecified whether behavioral, psychotic, or mood disturbance or anxiety Dementia severity: unspecified severity Dementia type: unspecified type Qualified Code(s): F03.90 - Unspecified dementia, unspecified severity, without behavioral disturbance, psychotic disturbance, mood disturbance, and anxiety (4) Depression Depression Type: unspecified Qualified Code(s): F32.A - Depression, unspecified
--- NOTE | 2023-11-17 08:05 | Hospitalist Progress Note ---
Date of Service November 17, 2023 Assessment & Plan (1) Unable to care for self: (2) Dementia: (3) Neurocognitive disorder: (4) Depression: Plan Mr Ragland is a 63-year-old male with PMH of dementia, heavy alcohol abuse, depression with psychotic features and catatonia, polysubstance abuse, cognitive decline since 2019 presenting with family stating they can no longer care for him at home. Per previous provider with addendum: History of combative behavior and dementia, recently admitted to our service from 10/02-10/13 awaiting placement and was ultimately discharged home by request of patient's . Was seen by psychiatry during previous admission and was started on aripiprazole 5 mg in the morning (in addition to continuing aripiprazole 10 mg at bedtime, which she had previously been on), as well as starting mirtazapine 15 mg at bedtime as well as vitamin D3, B12 and thiamine supplementations. Reportedly brought to the ED by with request for placement as family unable to provide care at home. UA noted to be positive for e coli. No further concerns at this time. Planning pursuit of placement,. No changes in management today; complex dispo planning Case management working with to fill out documents for placement. He was previously treated for the following: Neurocognitive disorder Unable to care for self History of depression Office of aging involved, complex social situation History of sexual disinhibition per 04/20/2023 reports - previously on estradiol 0.0375 patch -> discussed with psych earlier regarding estrogen patch -> not clear why /when stopped but seems as unnecessary to resume at this time Case management to help with placement Psych consulted on previous admission - continue Abilify 5mg daily, 10mg HS, Mirtazapine 15 HS Evaluated by neuro on previous admission - MRI brain unremarkable, f/u Neuro in 4-6 weeks for further w/u. Recommend outpatient neuropsychiatric testing and follow up with adult neurology in memory clinic (no show for 10/16 appt) PT/OT evaluations for placement: SNF recommended Delirium precautions Continue B12, thiamine and vitamin D supplements states she cannot take patient at this time due to her own medical issues and home dynamics Pt seems to be cooperative now w/ hosp. staff Acute uncomplicated cystitis *resolved History of E coli on previous admission, treated UA abnormal Completed 7 days of CTX pansensitive e coli on culture labs stable DVT prophylaxis: SQ lovenox Code status: FULL PCP: JUAN JOSE Bolden Dispo: awaiting placement Admission and Anticipated Discharge Date Admission Date: October 29, 2023 Subjective Pt seen in follow up for inability to take care of himself, dementia, neurocognitive disorder, hx of etoh abuse Denies any fever, chills, chest pain, shortness of breath, abd. pain Pt has been cooperative I contacted and discussed with psych regarding estrogen patch earlier -> not clear why /when stopped but seems as unnecessary to resume at this time Review of Systems Review of Systems: All systems reviewed & are unremarkable except as noted in Subjective Physical Exam Physical Exam: General: Alert No acute distress Psych: Appropriate mood and affect, cooperative Neuro: awake, alert, speech fluent, answers simple questions appropriately, moves extremities HEENT: NC/AT CV: RRR Resp: no increased effort of breathing, CTAB Abdomen: Soft, nontender Extremities: No edema in lower extremities bilaterally. Results & Data Results & Data Vital Signs (Past 12 Hours) Vital Signs Temp Pulse Resp BP Pulse Ox O2 Del Method 11/17/23 07:16 36.5 C 60 16 113/70 95 Room Air 11/16/23 21:25 36.6 C 77 14 119/77 95 Room Air Medications Administered Current Inpatient Medications Acetaminophen (Acetaminophen 325 Mg Tab) 650 mg PO Q4H PRN PRN Reason: pain/fever Stop: 11/28/23 18:07 Aripiprazole (Aripiprazole 10 Mg Tab) 10 mg PO HS [facility] Stop: 11/28/23 20:59 Last Admin: 11/16/23 21:28 Dose: 10 mg Aripiprazole (Aripiprazole 5 Mg Tab) 5 mg PO QAM [facility] Stop: 11/29/23 08:59 Last Admin: 11/16/23 07:46 Dose: 5 mg Cyanocobalamin (Cyanocobalamin (B-12) 100 Mcg Tablet) 100 mcg PO QAM [facility] Stop: 11/29/23 08:59 Last Admin: 11/16/23 07:46 Dose: 100 mcg Enoxaparin Sodium (Enoxaparin Inj 40 Mg/0.4 Ml Syr) 40 mg SQ Q24H [facility] Stop: 11/28/23 18:29 Last Admin: 11/16/23 18:11 Dose: Not Given Mirtazapine (Mirtazapine Tab 15 Mg Tab) 15 mg PO HS [facility] Stop: 11/28/23 20:59 Last Admin: 11/16/23 21:27 Dose: 15 mg Ondansetron HCl (Ondansetron Inj 2 Mg/Ml 2 Ml Vial) 4 mg IV Q6H PRN PRN Reason: Nausea Stop: 11/28/23 18:07 Polyethylene Glycol (Polyethylene (Miralax) 17 Gm Pack) 17 gm PO DAILY PRN PRN Reason: Constipation Stop: 11/28/23 18:07 Thiamine HCl ([facility] Hcl 100 Mg Tab) [facility]: 11/29/23 08:59 Last Admin: 11/16/23 07:46 Dose: 100 mg Vitamin D (Cholecalciferol 125 Mcg (5,000 Units) Tab) [facility] [place]: 11/29/23 08:59 Last Admin: 11/16/23 07:46 Dose: 125 mcg (2) Dementia Dementia behavioral or psychological symptom: unspecified whether behavioral, psychotic, or mood disturbance or anxiety Dementia severity: unspecified severity Dementia type: unspecified type Qualified Code(s): F03.90 - Unspecified dementia, unspecified severity, without behavioral disturbance, psychotic disturbance, mood disturbance, and anxiety (4) Depression Depression Type: unspecified Qualified Code(s): F32.A - Depression, unspecified
--- NOTE | 2023-11-18 11:05 | Hospitalist Progress Note ---
Date of Service November 18, 2023 Assessment & Plan (1) Unable to care for self: (2) Dementia: (3) Neurocognitive disorder: (4) Depression: Plan Mr Ragland is a 63-year-old male with PMH of dementia, heavy alcohol abuse, depression with psychotic features and catatonia, polysubstance abuse, cognitive decline since 2019 presenting with family stating they can no longer care for him at home. Per previous provider with addendum: History of combative behavior and dementia, recently admitted to our service from 10/02-10/13 awaiting placement and was ultimately discharged home by request of patient's . Was seen by psychiatry during previous admission and was started on aripiprazole 5 mg in the morning (in addition to continuing aripiprazole 10 mg at bedtime, which she had previously been on), as well as starting mirtazapine 15 mg at bedtime as well as vitamin D3, B12 and thiamine supplementations. Reportedly brought to the ED by with request for placement as family unable to provide care at home. UA noted to be positive for e coli. No further concerns at this time. Planning pursuit of placement,. No changes in management today; complex dispo planning Case management working with to fill out documents for placement. He was previously treated for the following: Neurocognitive disorder Unable to care for self History of depression Office of aging involved, complex social situation History of sexual disinhibition per 04/20/2023 reports - previously on estradiol 0.0375 patch -> discussed with psych earlier regarding estrogen patch -> not clear why /when stopped but seems as unnecessary to resume at this time Case management to help with placement Psych consulted on previous admission - continue Abilify 5mg daily, 10mg HS, Mirtazapine 15 HS Evaluated by neuro on previous admission - MRI brain unremarkable, f/u Neuro in 4-6 weeks for further w/u. Recommend outpatient neuropsychiatric testing and follow up with adult neurology in memory clinic (no show for 10/16 appt) PT/OT evaluations for placement: SNF recommended Delirium precautions Continue B12, thiamine and vitamin D supplements states she cannot take patient at this time due to her own medical issues and home dynamics Pt seems to be cooperative now w/ hosp. staff Acute uncomplicated cystitis *resolved History of E coli on previous admission, treated UA abnormal Completed 7 days of CTX pansensitive e coli on culture labs stable DVT prophylaxis: SQ lovenox Code status: FULL PCP: JUAN JOSE Bolden Dispo: awaiting placement Admission and Anticipated Discharge Date Admission Date: October 29, 2023 Subjective Pt seen in follow up for inability to take care of himself, dementia, neurocognitive disorder, hx of etoh abuse Denies any fever, chills, chest pain, shortness of breath, abd. pain Pt has been cooperative I contacted and discussed with psych regarding estrogen patch earlier -> not clear why /when stopped but seems as unnecessary to resume at this time Currently pt has no concerns or complaints. I discussed w/ RN at the bedside as well - no concerns per RN. Review of Systems Review of Systems: All systems reviewed & are unremarkable except as noted in Subjective Physical Exam Physical Exam: General: Alert No acute distress Psych: Appropriate mood and affect, cooperative Neuro: awake, alert, speech fluent, answers simple questions appropriately, mov es extremities HEENT: NC/AT CV: RRR Resp: no increased effort of breathing, CTAB Abdomen: Soft, nontender Extremities: No edema in lower extremities bilaterally. Results & Data Results & Data Vital Signs (Past 12 Hours) Vital Signs Temp Pulse Pulse Resp BP Pulse Ox O2 Del Method 11/18/23 07:39 36.4 C L 56 L 16 98/62 L 96 Room Air 11/18/23 07:23 36.5 C 52 L 16 96/61 L 96 Room Air Medications Administered Current Inpatient Medications Acetaminophen (Acetaminophen 325 Mg Tab) 650 mg PO Q4H PRN PRN Reason: pain/fever Stop: 11/28/23 18:07 Aripiprazole (Aripiprazole 10 Mg Tab) 10 mg PO HS [facility] Stop: 11/28/23 20:59 Last Admin: 11/17/23 20:44 Dose: 10 mg Aripiprazole (Aripiprazole 5 Mg Tab) 5 mg PO QAM [facility] Stop: 11/29/23 08:59 Last Admin: 11/18/23 07:20 Dose: 5 mg Cyanocobalamin (Cyanocobalamin (B-12) 100 Mcg Tablet) 100 mcg PO QAM [facility] Stop: 11/29/23 08:59 Last Admin: 11/18/23 07:20 Dose: 100 mcg Enoxaparin Sodium (Enoxaparin Inj 40 Mg/0.4 Ml Syr) 40 mg SQ Q24H [facility] Stop: 11/28/23 18:29 Last Admin: 11/17/23 18:09 Dose: 40 mg Mirtazapine (Mirtazapine Tab 15 Mg Tab) 15 mg PO HS [facility] Stop: 11/28/23 20:59 Last Admin: 11/17/23 20:44 Dose: 15 mg Ondansetron HCl (Ondansetron Inj 2 Mg/Ml 2 Ml Vial) 4 mg IV Q6H PRN PRN Reason: Nausea Stop: 11/28/23 18:07 Polyethylene Glycol (Polyethylene (Miralax) 17 Gm Pack) 17 gm PO DAILY PRN PRN Reason: Constipation Stop: 11/28/23 18:07 Thiamine HCl (Thiamine Hcl 100 Mg Tab) 100 mg PO QAM [facility] Stop: 11/29/23 08:59 Last Admin: 11/18/23 07:20 Dose: 100 mg Vitamin D (Cholecalciferol 125 Mcg (5,000 Units) Tab) 125 mcg PO QAM [facility] Stop: 11/29/23 08:59 Last Admin: 11/18/23 07:19 Dose: 125 mcg (2) Dementia Dementia behavioral or psychological symptom: unspecified whether behavioral, psychotic, or mood disturbance or anxiety Dementia severity: unspecified severity Dementia type: unspecified type Qualified Code(s): F03.90 - Unspecified dementia, unspecified severity, without behavioral disturbance, psychotic disturbance, mood disturbance, and anxiety (4) Depression Depression Type: unspecified Qualified Code(s): F32.A - Depression, unspecified
--- NOTE | 2023-11-19 08:06 | Hospitalist Progress Note ---
Date of Service November 19, 2023 Assessment & Plan (1) Unable to care for self: (2) Dementia: (3) Neurocognitive disorder: (4) Depression: Plan Mr Ragland is a 63-year-old male with PMH of dementia, heavy alcohol abuse, depression with psychotic features and catatonia, polysubstance abuse, cognitive decline since 2019 presenting with family stating they can no longer care for him at home. Per previous provider with addendum: History of combative behavior and dementia, recently admitted to our service from 10/02-10/13 awaiting placement and was ultimately discharged home by request of patient's . Was seen by psychiatry during previous admission and was started on aripiprazole 5 mg in the morning (in addition to continuing aripiprazole 10 mg at bedtime, which she had previously been on), as well as starting mirtazapine 15 mg at bedtime as well as vitamin D3, B12 and thiamine supplementations. Reportedly brought to the ED by with request for placement as family unable to provide care at home. UA noted to be positive for e coli. No further concerns at this time. Planning pursuit of placement,. No changes in management today; complex dispo planning Case management working with to fill out documents for placement. He was previously treated for the following: Neurocognitive disorder Unable to care for self History of depression Office of aging involved, complex social situation History of sexual disinhibition per 04/20/2023 reports - previously on estradiol 0.0375 patch -> discussed with psych earlier regarding estrogen patch -> not clear why /when stopped but seems as unnecessary to resume at this time Case management to help with placement Psych consulted on previous admission - continue Abilify 5mg daily, 10mg HS, Mirtazapine 15 HS Evaluated by neuro on previous admission - MRI brain unremarkable, f/u Neuro in 4-6 weeks for further w/u. Recommend outpatient neuropsychiatric testing and follow up with adult neurology in memory clinic (no show for 10/16 appt) PT/OT evaluations for placement: SNF recommended Delirium precautions Continue B12, thiamine and vitamin D supplements states she cannot take patient at this time due to her own medical issues and home dynamics Pt seems to be cooperative now w/ hosp. staff Acute uncomplicated cystitis *resolved History of E coli on previous admission, treated UA abnormal Completed 7 days of CTX pansensitive e coli on culture labs stable DVT prophylaxis: SQ lovenox Code status: FULL PCP: JUAN JOSE Bolden Dispo: awaiting placement Admission and Anticipated Discharge Date Admission Date: October 29, 2023 Subjective pt was seen sitting up in bed eating lunch. Asked provider to help him open up a packet of mustard. Denied acute concerns otherwise. Review of Systems Review of Systems: All systems reviewed & are unremarkable except as noted in Subjective Physical Exam Physical Exam: General: Alert No acute distress Psych: Appropriate mood and affect Neuro: No gross deficits in the bed HEENT: NC/AT CV: RRR Resp: breath sounds clear bilaterally, no increased effort of breathing Abdomen: Soft Extremities: No edema in lower extremities bilaterally. Results & Data Results & Data Vital Signs (Past 12 Hours) Vital Signs Temp Pulse Resp BP Pulse Ox O2 Del Method 11/19/23 03:13 58 L 95 Room Air 11/18/23 20:16 36.6 C 56 L 18 102/67 93 Room Air (2) Dementia Dementia behavioral or psychological symptom: unspecified whether behavioral, psychotic, or mood disturbance or anxiety Dementia severity: unspecified severity Dementia type: unspecified type Qualified Code(s): F03.90 - Uns pecified dementia, unspecified severity, without behavioral disturbance, psychotic disturbance, mood disturbance, and anxiety (4) Depression Depression Type: unspecified Qualified Code(s): F32.A - Depression, unspecified
--- NOTE | 2023-11-20 12:24 | Hospitalist Progress Note ---
Date of Service November 20, 2023 Assessment & Plan (1) Unable to care for self: (2) Dementia: (3) Neurocognitive disorder: (4) Depression: Plan Mr Ragland is a 63-year-old male with PMH of dementia, heavy alcohol abuse, depression with psychotic features and catatonia, polysubstance abuse, cognitive decline since 2019 presenting with family stating they can no longer care for him at home. Per previous provider with addendum: History of combative behavior and dementia, recently admitted to our service from 10/02-10/13 awaiting placement and was ultimately discharged home by request of patient's . Was seen by psychiatry during previous admission and was started on aripiprazole 5 mg in the morning (in addition to continuing aripiprazole 10 mg at bedtime, which she had previously been on), as well as starting mirtazapine 15 mg at bedtime as well as vitamin D3, B12 and thiamine supplementations. Reportedly brought to the ED by with request for placement as family unable to provide care at home. UA noted to be positive for e coli. No further concerns at this time. Planning pursuit of placement,. No changes in management today; complex dispo planning Case management working with to fill out documents for placement. He was previously treated for the following: Progressive dementia with combative behavior requiring placement Neurocognitive disorder Unable to care for self History of depression Office of aging involved, complex social situation History of sexual disinhibition per 04/20/2023 reports - previously on estradiol 0.0375 patch -> discussed with psych earlier regarding estrogen patch -> not clear why /when stopped but seems as unnecessary to resume at this time Case management to help with placement Psych consulted on previous admission - continue Abilify 5mg daily, 10mg HS, Mirtazapine 15 HS Evaluated by neuro on previous admission - MRI brain unremarkable, f/u Neuro in 4-6 weeks for further w/u. Recommend outpatient neuropsychiatric testing and follow up with adult neurology in memory clinic (no show for 10/16 appt) PT/OT evaluations for placement: SNF recommended Delirium precautions Continue B12, thiamine and vitamin D supplements states she cannot take patient at this time due to her own medical issues and home dynamics Pt seems to be cooperative now w/ hosp. staff Acute uncomplicated cystitis *resolved History of E coli on previous admission, treated UA abnormal Completed 7 days of CTX pansensitive e coli on culture labs stable DVT prophylaxis: SQ lovenox Code status: FULL PCP: JUAN JOSE Bolden Dispo: awaiting placement Admission and Anticipated Discharge Date Admission Date: October 29, 2023 Subjective pt was seen sitting up in bed eating lunch. Denied acute concerns otherwise. Review of Systems Review of Systems: All systems reviewed & are unremarkable except as noted in Subjective Physical Exam Physical Exam: General: Alert No acute distress Psych: Appropriate mood and affect Neuro: No gross deficits in the bed HEENT: NC/AT CV: RRR Resp: breath sounds clear bilaterally, no increased effort of breathing Abdomen: Soft Extremities: No edema in lower extremities bilaterally. Results & Data Results & Data Vital Signs (Past 12 Hours) Vital Signs Temp Pulse Pulse Resp BP Pulse Ox O2 Del Method 11/20/23 08:30 54 L 18 98 Room Air 11/20/23 07:56 36.5 C 57 L 16 96/72 L 93 Room Air (2) Dementia Dementia behavioral or psychological symptom: unspecified whether behavioral, psychotic, or mood disturbance or anxiety Dementia severity: unspecified severity Dementia type: unspecified type Qualified Code(s): F03.90 - Unspecified dementia, unspecified severity, without behavioral disturbance, psychotic disturbance, mood disturbance, and anxiety (4) Depression Depression Type: unspecified Qualified Code(s): F32.A - Depression, unspecified
--- NOTE | 2023-11-21 14:03 | Hospitalist Progress Note ---
Date of Service November 21, 2023 Assessment & Plan (1) Unable to care for self: (2) Dementia: (3) Neurocognitive disorder: (4) Depression: Plan Mr Ragland is a 63-year-old male with PMH of dementia, heavy alcohol abuse, depression with psychotic features and catatonia, polysubstance abuse, cognitive decline since 2019 presenting with family stating they can no longer care for him at home. Per previous provider with addendum: History of combative behavior and dementia, recently admitted to our service from 10/02-10/13 awaiting placement and was ultimately discharged home by request of patient's . Was seen by psychiatry during previous admission and was started on aripiprazole 5 mg in the morning (in addition to continuing aripiprazole 10 mg at bedtime, which she had previously been on), as well as starting mirtazapine 15 mg at bedtime as well as vitamin D3, B12 and thiamine supplementations. Reportedly brought to the ED by with request for placement as family unable to provide care at home. UA noted to be positive for e coli. No further concerns at this time. Planning pursuit of placement,. No changes in management today; complex dispo planning Case management working with to fill out documents for placement. He was previously treated for the following: Progressive dementia with combative behavior requiring placement Neurocognitive disorder Unable to care for self History of depression Office of aging involved, complex social situation History of sexual disinhibition per 04/20/2023 reports - previously on estradiol 0.0375 patch -> discussed with psych earlier regarding estrogen patch -> not clear why /when stopped but seems as unnecessary to resume at this time Case management to help with placement Psych consulted on previous admission - continue Abilify 5mg daily, 10mg HS, Mirtazapine 15 HS Evaluated by neuro on previous admission - MRI brain unremarkable, f/u Neuro in 4-6 weeks for further w/u. Recommend outpatient neuropsychiatric testing and follow up with adult neurology in memory clinic (no show for 10/16 appt) PT/OT evaluations for placement: SNF recommended Delirium precautions Continue B12, thiamine and vitamin D supplements states she cannot take patient at this time due to her own medical issues and home dynamics Pt seems to be cooperative now w/ hosp. staff Acute uncomplicated cystitis *resolved History of E coli on previous admission, treated UA abnormal Completed 7 days of CTX pansensitive e coli on culture labs stable DVT prophylaxis: SQ lovenox Code status: FULL PCP: JUAN JOSE Bolden Dispo: awaiting placement Admission and Anticipated Discharge Date Admission Date: October 29, 2023 Subjective pt was seen laying in bed Denied acute concerns otherwise. Review of Systems Review of Systems: All systems reviewed & are unremarkable except as noted in Subjective Physical Exam Physical Exam: General: Alert No acute distress Psych: Appropriate mood and affect Neuro: No gross deficits in the bed HEENT: NC/AT CV: RRR Resp: breath sounds clear bilaterally, no increased effort of breathing Abdomen: Soft Extremities: No edema in lower extremities bilaterally. Results & Data Results & Data Vital Signs (Past 12 Hours) Vital Signs Temp Pulse Pulse Resp BP Pulse Ox O2 Del Method 11/21/23 07:20 57 L 17 94 Room Air 11/21/23 07:01 36.4 C L 57 L 18 102/66 93 Room Air (2) Dementia Dementia behavioral or psychological symptom: unspecified whether behavioral, psychotic, or mood disturbance or anxiety Dementia severity: unspecified severity Dementia type: unspecified type Qualified Code(s): F03.90 - Unspecified dementia, unspecified severity, without behavioral disturbance, psychotic disturbance, mood disturbance, and anxiety (4) Depression Depression Type: unspecified Qualified Code(s): F32.A - Depression, unspecified
--- NOTE | 2023-11-23 14:49 | Hospitalist Progress Note ---
Date of Service November 23, 2023 Assessment & Plan (1) Unable to care for self: (2) Dementia: (3) Neurocognitive disorder: (4) Depression: Plan Mr Ragland is a 63-year-old male with PMH of dementia, heavy alcohol abuse, depression with psychotic features and catatonia, polysubstance abuse, cognitive decline since 2019 presenting with family stating they can no longer care for him at home. Per previous provider with addendum: History of combative behavior and dementia, recently admitted to our service from 10/02-10/13 awaiting placement and was ultimately discharged home by request of patient's . Was seen by psychiatry during previous admission and was started on aripiprazole 5 mg in the morning (in addition to continuing aripiprazole 10 mg at bedtime, which she had previously been on), as well as starting mirtazapine 15 mg at bedtime as well as vitamin D3, B12 and thiamine supplementations. Reportedly brought to the ED by with request for placement as family unable to provide care at home. UA noted to be positive for e coli. No further concerns at this time. Planning pursuit of placement,. No changes in management today; complex dispo planning Case management working with to fill out documents for placement. He was previously treated for the following: Progressive dementia with combative behavior requiring placement Neurocognitive disorder Unable to care for self History of depression Office of aging involved, complex social situation History of sexual disinhibition per 04/20/2023 reports - previously on estradiol 0.0375 patch -> discussed with psych earlier regarding estrogen patch -> not clear why /when stopped but seems as unnecessary to resume at this time Case management to help with placement Psych consulted on previous admission - continue Abilify 5mg daily, 10mg HS, Mirtazapine 15 HS Evaluated by neuro on previous admission - MRI brain unremarkable, f/u Neuro in 4-6 weeks for further w/u. Recommend outpatient neuropsychiatric testing and follow up with adult neurology in memory clinic (no show for 10/16 appt) PT/OT evaluations for placement: SNF recommended Delirium precautions Continue B12, thiamine and vitamin D supplements states she cannot take patient at this time due to her own medical issues and home dynamics Pt seems to be cooperative now w/ hosp. staff Acute uncomplicated cystitis *resolved History of E coli on previous admission, treated UA abnormal Completed 7 days of CTX pansensitive e coli on culture labs stable DVT prophylaxis: SQ lovenox Code status: FULL PCP: JUAN JOSE Bolden Dispo: awaiting placement Admission and Anticipated Discharge Date Admission Date: October 29, 2023 Subjective pt was seen laying in bed Denied acute concerns otherwise. Review of Systems Review of Systems: All systems reviewed & are unremarkable except as noted in Subjective Physical Exam Physical Exam: General: Alert No acute distress Psych: Appropriate mood and affect Neuro: No gross deficits in the bed HEENT: NC/AT CV: RRR Resp: breath sounds clear bilaterally, no increased effort of breathing Abdomen: Soft Extremities: No edema in lower extremities bilaterally. (2) Dementia Dementia behavioral or psychological symptom: unspecified whether behavioral, psychotic, or mood disturbance or anxiety Dementia severity: unspecified severity Dementia type: unspecified type Qualified Code(s): F03.90 - Unspecified dementia, unspecified severity, without behavioral disturbance, psychotic disturbance, mood disturbance, and anxiety (4) Depression Depression Type: unspecified Qualified Code(s): F32.A - Depression, unsp ecified
--- NOTE | 2023-11-24 14:18 | Hospitalist Progress Note ---
Date of Service November 24, 2023 Assessment & Plan (1) Unable to care for self: (2) Dementia: (3) Neurocognitive disorder: (4) Depression: Plan Mr Ragland is a 63-year-old male with PMH of dementia, heavy alcohol abuse, depression with psychotic features and catatonia, polysubstance abuse, cognitive decline since 2019 presenting with family stating they can no longer care for him at home. Per previous provider with addendum: History of combative behavior and dementia, recently admitted to our service from 10/02-10/13 awaiting placement and was ultimately discharged home by request of patient's . Was seen by psychiatry during previous admission and was started on aripiprazole 5 mg in the morning (in addition to continuing aripiprazole 10 mg at bedtime, which she had previously been on), as well as starting mirtazapine 15 mg at bedtime as well as vitamin D3, B12 and thiamine supplementations. Reportedly brought to the ED by with request for placement as family unable to provide care at home. UA noted to be positive for e coli. No further concerns at this time. Planning pursuit of placement,. No changes in management today; complex dispo planning Case management working with to fill out documents for placement. He was previously treated for the following: Progressive dementia with combative behavior requiring placement Neurocognitive disorder Unable to care for self History of depression Office of aging involved, complex social situation History of sexual disinhibition per 04/20/2023 reports - previously on estradiol 0.0375 patch -> discussed with psych earlier regarding estrogen patch -> not clear why /when stopped but seems as unnecessary to resume at this time Case management to help with placement Psych consulted on previous admission - continue Abilify 5mg daily, 10mg HS, Mirtazapine 15 HS Evaluated by neuro on previous admission - MRI brain unremarkable, f/u Neuro in 4-6 weeks for further w/u. Recommend outpatient neuropsychiatric testing and follow up with adult neurology in memory clinic (no show for 10/16 appt) PT/OT evaluations for placement: SNF recommended Delirium precautions Continue B12, thiamine and vitamin D supplements states she cannot take patient at this time due to her own medical issues and home dynamics Pt seems to be cooperative now w/ hosp. staff Acute uncomplicated cystitis *resolved History of E coli on previous admission, treated UA abnormal Completed 7 days of CTX pansensitive e coli on culture labs stable DVT prophylaxis: SQ lovenox Code status: FULL PCP: JUAN JOSE Bolden Dispo: awaiting placement Admission and Anticipated Discharge Date Admission Date: October 29, 2023 Subjective pt was seen laying in bed Denied acute concerns otherwise. Physical Exam Physical Exam: General: Alert No acute distress Psych: Appropriate mood and affect Neuro: No gross deficits in the bed HEENT: NC/AT CV: RRR Resp: breath sounds clear bilaterally, no increased effort of breathing Abdomen: Soft Extremities: No edema in lower extremities bilaterally. Results & Data Results & Data Vital Signs (Past 12 Hours) Vital Signs Temp Pulse Resp BP Pulse Ox O2 Del Method 11/24/23 08:13 36.6 C 65 16 110/77 93 Room Air (2) Dementia Dementia behavioral or psychological symptom: unspecified whether behavioral, psychotic, or mood disturbance or anxiety Dementia severity: unspecified s everity Dementia type: unspecified type Qualified Code(s): F03.90 - Unspecified dementia, unspecified severity, without behavioral disturbance, psychotic disturbance, mood disturbance, and anxiety (4) Depression Depression Type: unspecified Qualified Code(s): F32.A - Depression, unspecified
--- NOTE | 2023-11-25 13:41 | Hospitalist Progress Note ---
Date of Service November 25, 2023 Assessment & Plan (1) Unable to care for self: (2) Dementia: (3) Neurocognitive disorder: (4) Depression: Plan Mr Ragland is a 63-year-old male with PMH of dementia, heavy alcohol abuse, depression with psychotic features and catatonia, polysubstance abuse, cognitive decline since 2019 presenting with family stating they can no longer care for him at home. Per previous provider with addendum: History of combative behavior and dementia, recently admitted to our service from 10/02-10/13 awaiting placement and was ultimately discharged home by request of patient's . Was seen by psychiatry during previous admission and was started on aripiprazole 5 mg in the morning (in addition to continuing aripiprazole 10 mg at bedtime, which she had previously been on), as well as starting mirtazapine 15 mg at bedtime as well as vitamin D3, B12 and thiamine supplementations. Reportedly brought to the ED by with request for placement as family unable to provide care at home. UA noted to be positive for e coli. No further concerns at this time. Planning pursuit of placement,. No changes in management today; complex dispo planning Case management working with to fill out documents for placement. He was previously treated for the following: Progressive dementia with combative behavior requiring placement Neurocognitive disorder Unable to care for self History of depression Office of aging involved, complex social situation History of sexual disinhibition per 04/20/2023 reports - previously on estradiol 0.0375 patch -> discussed with psych earlier regarding estrogen patch -> not clear why /when stopped but seems as unnecessary to resume at this time Case management to help with placement Psych consulted on previous admission - continue Abilify 5mg daily, 10mg HS, Mirtazapine 15 HS Evaluated by neuro on previous admission - MRI brain unremarkable, f/u Neuro in 4-6 weeks for further w/u. Recommend outpatient neuropsychiatric testing and follow up with adult neurology in memory clinic (no show for 10/16 appt) PT/OT evaluations for placement: SNF recommended Delirium precautions Continue B12, thiamine and vitamin D supplements states she cannot take patient at this time due to her own medical issues and home dynamics Pt seems to be cooperative now w/ hosp. staff Acute uncomplicated cystitis *resolved History of E coli on previous admission, treated UA abnormal Completed 7 days of CTX pansensitive e coli on culture labs stable DVT prophylaxis: SQ lovenox Code status: FULL PCP: JUAN JOSE Bolden Dispo: awaiting placement Admission and Anticipated Discharge Date Admission Date: October 29, 2023 Subjective pt was seen laying in bed Denied acute concerns otherwise. Physical Exam Physical Exam: General: Alert No acute distress Psych: Appropriate mood and affect Neuro: No gross deficits in the bed HEENT: NC/AT CV: RRR Resp: breath sounds clear bilaterally, no increased effort of breathing Abdomen: Soft Extremities: No edema in lower extremities bilaterally. Results & Data Results & Data Vital Signs (Past 12 Hours) Vital Signs Temp Pulse Resp BP Pulse Ox O2 Del Method 11/25/23 12:50 36.5 C 62 18 108/76 96 Room Air 11/25/23 08:05 36.5 C 62 18 124/80 96 Room Air (2) Dementia Dementia behavioral or psychological symptom: unspecified whether behavioral, psychotic, or mood disturbance or anxiety Dementia severity: unspecified severity Dementia type: unspecified type Qualified Code(s): F03.90 - Unspecified dementia, unspecified severity, without behavioral disturbance, psychotic disturbance, mood disturbance, and anxiety (4) Depression Depression Type: unspecified Qualified Code(s): F32.A - Depression, unspecified
--- NOTE | 2023-11-26 13:49 | Hospitalist Progress Note ---
Date of Service November 26, 2023 Assessment & Plan (1) Unable to care for self: (2) Dementia: (3) Neurocognitive disorder: (4) Depression: Plan Mr Ragland is a 63-year-old male with PMH of dementia, heavy alcohol abuse, depression with psychotic features and catatonia, polysubstance abuse, cognitive decline since 2019 presenting with family stating they can no longer care for him at home. Per previous provider with addendum: History of combative behavior and dementia, recently admitted to our service from 10/02-10/13 awaiting placement and was ultimately discharged home by request of patient's . Was seen by psychiatry during previous admission and was started on aripiprazole 5 mg in the morning (in addition to continuing aripiprazole 10 mg at bedtime, which she had previously been on), as well as starting mirtazapine 15 mg at bedtime as well as vitamin D3, B12 and thiamine supplementations. Reportedly brought to the ED by with request for placement as family unable to provide care at home. UA noted to be positive for e coli. No further concerns at this time. Planning pursuit of placement,. No changes in management today; complex dispo planning Case management working with to fill out documents for placement. He was previously treated for the following: Progressive dementia with combative behavior requiring placement Neurocognitive disorder Unable to care for self History of depression Office of aging involved, complex social situation History of sexual disinhibition per 04/20/2023 reports - previously on estradiol 0.0375 patch -> discussed with psych earlier regarding estrogen patch -> not clear why /when stopped but seems as unnecessary to resume at this time Case management to help with placement Psych consulted on previous admission - continue Abilify 5mg daily, 10mg HS, Mirtazapine 15 HS Evaluated by neuro on previous admission - MRI brain unremarkable, f/u Neuro in 4-6 weeks for further w/u. Recommend outpatient neuropsychiatric testing and follow up with adult neurology in memory clinic (no show for 10/16 appt) PT/OT evaluations for placement: SNF recommended Delirium precautions Continue B12, thiamine and vitamin D supplements states she cannot take patient at this time due to her own medical issues and home dynamics Pt seems to be cooperative now w/ hosp. staff Acute uncomplicated cystitis *resolved History of E coli on previous admission, treated UA abnormal Completed 7 days of CTX pansensitive e coli on culture labs stable DVT prophylaxis: SQ lovenox Code status: FULL PCP: JUAN JOSE Bolden Dispo: awaiting placement Admission and Anticipated Discharge Date Admission Date: October 29, 2023 Subjective pt was seen laying in bed Denied acute concerns otherwise. Review of Systems Review of Systems: All systems reviewed & are unremarkable except as noted in Subjective Physical Exam Physical Exam: General: Alert No acute distress Psych: Appropriate mood and affect Neuro: No gross deficits in the bed HEENT: NC/AT CV: RRR Resp: breath sounds clear bilaterally, no increased effort of breathing Abdomen: Soft Extremities: No edema in lower extremities bilaterally. Results & Data Results & Data Vital Signs (Past 12 Hours) Vital Signs Temp Pulse Resp BP Pulse Ox O2 Del Method 11/26/23 07:15 36.4 C L 56 L 16 110/74 94 Room Air (2) Dementia Dementia behavioral or psychological symptom: unspecified whether behavioral, psychotic, or mood disturbance or anxiety Dementia severity: unspecified severity Dementia type: unspecified type Qualified Code(s): F03.90 - Unspecified dementia, unspecified severity, without behavioral disturbance, psychotic disturbance, mood disturbance, and anxiety (4) Depression Depression Type: unspecified Qualified Code(s): F32.A - Depression, unspecified
--- NOTE | 2023-11-27 16:54 | Hospitalist Progress Note ---
Date of Service November 27, 2023 Assessment & Plan (1) Unable to care for self: (2) Dementia: (3) Neurocognitive disorder: (4) Depression: Plan Mr Ragland is a 63-year-old male with PMH of dementia, heavy alcohol abuse, depression with psychotic features and catatonia, polysubstance abuse, cognitive decline since 2019 presenting with family stating they can no longer care for him at home. There have been no changes to management. Per previous provider with addendum: History of combative behavior and dementia, recently admitted to our service from 10/02-10/13 awaiting placement and was ultimately discharged home by request of patient's . Was seen by psychiatry during previous admission and was started on aripiprazole 5 mg in the morning (in addition to continuing aripiprazole 10 mg at bedtime, which she had previously been on), as well as starting mirtazapine 15 mg at bedtime as well as vitamin D3, B12 and thiamine supplementations. Reportedly brought to the ED by with request for placement as family unable to provide care at home. UA noted to be positive for e coli. No further concerns at this time. Planning pursuit of placement He was previously treated for the following: Progressive dementia Neurocognitive disorder Unable to care for self History of depression Office of aging involved, complex social situation History of sexual disinhibition per 04/20/2023 reports - previously on estradiol 0.0375 patch -> discussed with psych earlier regarding estrogen patch -> not clear why /when stopped but seems as unnecessary to resume at this time Case management to help with placement Psych consulted on previous admission - continue Abilify 5mg daily, 10mg HS, Mirtazapine 15 HS Evaluated by neuro on previous admission - MRI brain unremarkable, f/u Neuro in 4-6 weeks for further w/u. Recommend outpatient neuropsychiatric testing and follow up with adult neurology in memory clinic (no show for 10/16 appt) PT/OT evaluations for placement: SNF recommended Delirium precautions Continue B12, thiamine and vitamin D supplements states she cannot take patient at this time due to her own medical issues and home dynamics continues to be cooperative with nursing staff and physicians Acute uncomplicated cystitis *resolved History of E coli on previous admission, treated UA abnormal Completed 7 days of CTX pansensitive e coli on culture labs stable DVT prophylaxis: SQ lovenox Code status: FULL PCP: JUAN JOSE Bolden Dispo: awaiting placement Admission and Anticipated Discharge Date Admission Date: October 29, 2023 Subjective NAEO Denies any new concerns Physical Exam Constitutional: WD/WN, vitals as above Respiratory: normal respiratory effort, lungs clear to auscultation Cardiovascular: RRR, no murmur, no edema Gastrointestinal (Abdomen): normal bowel sounds, soft, nontender, no hepatosplenomegaly Results & Data Results & Data Vital Signs (Past 12 Hours) Vital Signs Temp Pulse Pulse Resp BP Pulse Ox O2 Del Method 11/27/23 15:00 36.6 C 58 L 16 120/82 92 Room Air 11/27/23 13:26 36.5 C 62 15 106/72 92 Room Air 11/27/23 07:30 36.4 C L 55 L 14 108/70 91 Room Air Medications Administered Home Medications Medication Instructions Recorded Confirmed Last Taken aripiprazole 10 mg tablet 10 mg PO HS 30 days #30 tabs 05/24/23 10/29/23 Unknown aripiprazole 5 mg tablet (Abilify) 5 mg PO QAM #30 tabs 10/14/23 10/29/23 Unknown cholecalciferol (vitamin D3) 125 125 mcg PO QAM #30 tabs 10/14/23 10/29/23 Unknown mcg (5,000 unit) tablet cyanocobalamin (vitamin B-12) 100 100 mcg PO QAM #30 tabs 10/14/23 10/29/23 Unknown mcg tablet (Vitamin B-12) mirtazapine 15 mg tablet 15 mg PO HS #30 tabs 10/14/23 10/29/23 Unknown thiamine HCl (vitamin B1) 100 mg 100 mg PO QAM #30 tabs 10/14/23 10/29/23 Unknown tablet Active Medications Generic Name Dose Route Start Last Admin Trade Name Freq PRN Reason Stop Dose Admin Aripiprazole 10 mg 10/29/23 21:00 11/26/23 20:32 Aripiprazole 10 Mg Tab PO 11/28/23 20:59 10 mg HS MICHEL Administration Aripiprazole 5 mg 10/30/23 09:00 11/27/23 08:57 Aripiprazole 5 Mg Tab PO 11/29/23 08:59 5 mg QAM MICHEL Administration Cyanocobalamin 100 mcg 10/30/23 09:00 11/27/23 08:57 Cyanocobalamin (B-12) 100 Mcg Tablet PO 11/29/23 08:59 100 mcg QAM MICHEL Administration Enoxaparin Sodium 40 mg 10/29/23 18:30 11/27/23 17:42 Enoxaparin Inj 40 Mg/0.4 Ml Syr SQ 11/28/23 18:29 40 mg Q24H MICHEL Administration Mirtazapine 15 mg 10/29/23 21:00 11/26/23 20:32 Mirtazapine Tab 15 Mg Tab PO 11/28/23 20:59 15 mg HS MICHEL Administration Thiamine HCl 100 mg 10/30/23 09:00 11/27/23 08:57 Thiamine Hcl 100 Mg Tab PO 11/29/23 08:59 100 mg QAM MICHEL Administration Vitamin D 125 mcg 10/30/23 09:00 11/27/23 08:57 Cholecalciferol 125 Mcg (5,000 Units) Tab PO 11/29/23 08:59 125 mcg QAM MICHEL Administration (2) Dementia Dementia behavioral or psychological symptom: unspecified whether behavioral, psychotic, or mood disturbance or anxiety Dementia severity: unspecified severity Dementia type: unspecified type Qualified Code(s): F03.90 - Unspecified dementia, unspecified severity, without behavioral disturbance, psychotic disturbance, mood disturbance, and anxiety (4) Depression Depression Type: unspecified Qualified Code(s): F32.A - Depression, unspe cified
[2023-11-28 08:29] LABS: Calcium 9.2 mg/dl (8.6-10.3); Creatinine Clr Calc Pharmacy 71.1 ml/min; Est GFR (Non-African American) 72.5 ml/min; Potassium 4.3 mmol/L (3.5-5.1)
--- NOTE | 2023-11-28 14:52 | Hospitalist Progress Note ---
Date of Service November 28, 2023 Assessment & Plan (1) Unable to care for self: (2) Dementia: (3) Neurocognitive disorder: (4) Depression: Plan Mr Ragland is a 63-year-old male with PMH of dementia, heavy alcohol abuse, depression with psychotic features and catatonia, polysubstance abuse, cognitive decline since 2019 presenting with family stating they can no longer care for him at home. There have been no changes to management. Per previous provider with addendum: History of combative behavior and dementia, recently admitted to our service from 10/02-10/13 awaiting placement and was ultimately discharged home by request of patient's . Was seen by psychiatry during previous admission and was started on aripiprazole 5 mg in the morning (in addition to continuing aripiprazole 10 mg at bedtime, which she had previously been on), as well as starting mirtazapine 15 mg at bedtime as well as vitamin D3, B12 and thiamine supplementations. Reportedly brought to the ED by with request for placement as family unable to provide care at home. UA noted to be positive for e coli. No further concerns at this time. Planning pursuit of placement He was previously treated for the following: Progressive dementia Neurocognitive disorder Unable to care for self History of depression Office of aging involved, complex social situation History of sexual disinhibition per 04/20/2023 reports - previously on estradiol 0.0375 patch -> discussed with psych earlier regarding estrogen patch -> not clear why /when stopped but seems as unnecessary to resume at this time Case management to help with placement Psych consulted on previous admission - continue Abilify 5mg daily, 10mg HS, Mirtazapine 15 HS Evaluated by neuro on previous admission - MRI brain unremarkable, f/u Neuro in 4-6 weeks for further w/u. Recommend outpatient neuropsychiatric testing and follow up with adult neurology in memory clinic (no show for 10/16 appt) PT/OT evaluations for placement: SNF recommended Delirium precautions Continue B12, thiamine and vitamin D supplements states she cannot take patient at this time due to her own medical issues and home dynamics continues to be cooperative with nursing staff and physicians Acute uncomplicated cystitis *resolved History of E coli on previous admission, treated UA abnormal Completed 7 days of CTX pansensitive e coli on culture labs stable DVT prophylaxis: SQ lovenox Code status: FULL PCP: JUAN JOSE Bolden Dispo: awaiting placement A total of 31 minutes was spent coordinating, documenting, and providing care for this patient excluding time spent in the performance of separately billed services. This included personally viewing all current laboratories and imaging studies, medication reconciliation, outpatient chart review, and discussion with specialists. Admission and Anticipated Discharge Date Admission Date: October 29, 2023 Supervising Physician Co-Signing Physician Notes I have discussed the case with the collaborating advanced practitioner. I agree with the above PN. I have reviewed and confirmed the patients medical history and the patients diagnosis and treatment plan with [facility] and agree with the information documented. I spent a total of 15 minutes coordinating, documenting, and providing care for this patient excluding time spent in the performance of separately billed services. All of the aforementioned completed outside of collaborating with the assigned advanced practitioner for a full treatment plan. I have reviewed the advanced practitioner's documentation, and I agree with, and take responsibility for the plan of care Subjective Pt was seen and examined in room 307. Pt is awaiting placement due to neurocognitive d/o. ROS unreliable given cognition. He denies concerns. NAEO. He denies f/c/s, chest pain, sob, n/v/d. Review of Systems Review of Systems: All systems reviewed & are unremarkable except as noted in HPI & below Physical Exam Physical Exam: Gen: WD/WN, unkempt appearing, NAD, A&O x2 HEENT: Normocephalic, atraumatic, conjunctivae moist, sclerae anicteric, mucous membranes moist. Lung: Clear to Auscultation bilaterally, no wheezes/rales/rhonchi Heart: Regular rate, regular rhythm, no murmurs, rubs, or gallops Abdomen: Soft, NT, ND +BS x 4 Extremities: No edema Skin: Warm, no rash, negative turgor. Results & Data Results & Data Vital Signs (Past 12 Hours) Vital Signs Temp Pulse Resp BP Pulse Ox O2 Del Method 11/28/23 07:38 36.5 C 55 L 16 103/69 93 Room Air 11/28/23 07:15 Room Air Laboratory Results I have independently reviewed and interpreted patient's BMP. Medications Administered Current Inpatient Medications Acetaminophen (Acetaminophen 325 Mg Tab) 650 mg PO Q4H PRN PRN Reason: pain/fever Stop: 11/28/23 18:07 Aripiprazole (Aripiprazole 10 Mg Tab) 10 mg PO [facility] Stop: 11/28/23 20:59 Last Admin: 11/27/23 21:11 Dose: 10 mg Aripiprazole ([facility] 5 Mg Tab) [facility] [place] Stop: 11/29/23 08:59 Last Admin: 11/28/23 08:01 Dose: 5 mg Cyanocobalamin (Cyanocobalamin (B-12) 100 Mcg Tablet) [facility] [place] Stop: 11/29/23 08:59 Last Admin: 11/28/23 08:01 Dose: 100 mcg Enoxaparin Sodium (Enoxaparin Inj 40 Mg/0.4 Ml Syr) 40 mg SQ Q24H [facility] Stop: 11/28/23 18:29 Last Admin: 11/27/23 17:42 Dose: 40 mg Mirtazapine (Mirtazapine Tab 15 Mg Tab) 15 mg PO [facility] Stop: 11/28/23 20:59 Last Admin: 11/27/23 21:11 Dose: 15 mg Ondansetron HCl (Ondansetron Inj 2 Mg/Ml 2 Ml Vial) 4 mg IV Q6H PRN PRN Reason: Nausea Stop: 11/28/23 18:07 Polyethylene Glycol (Polyethylene (Miralax) 17 Gm Pack) 17 gm PO DAILY PRN PRN Reason: Constipation Stop: 11/28/23 18:07 Thiamine HCl (Thiamine Hcl 100 Mg Tab) [facility] [place] Stop: 11/29/23 08:59 Last Admin: 11/28/23 08:01 Dose: 100 mg Vitamin D (Cholecalciferol 125 Mcg (5,000 Units) Tab) [facility] [place] Stop: 11/29/23 08:59 Last Admin: 11/28/23 08:01 Dose: 125 mcg (2) Dementia Dementia behavioral or psychological symptom: unspecified whether behavioral, psychotic, or mood disturbance or anxiety Dementia severity: unspecified se verity Dementia type: unspecified type Qualified Code(s): F03.90 - Unspecified dementia, unspecified severity, without behavioral disturbance, psychotic disturbance, mood disturbance, and anxiety (4) Depression Depression Type: unspecified Qualified Code(s): F32.A - Depression, unspecified
[2023-11-28] MEDS ORDERED: ACETAMINOPHEN 325 MG TAB PO PRN (18:24)
[2023-11-28] MEDS ORDERED: POLYETHYLENE (MIRALAX) 17 GM PACK PO PRN (18:29)
[2023-11-28] MEDS ORDERED: ONDANSETRON INJ 2 MG/ML 2 ML VIAL IV PRN (18:29)
[2023-11-28] MEDS: ENOXAPARIN INJ 40 MG/0.4 ML SYR SQ SCH (19:24)
[2023-11-28] MEDS: MIRTAZAPINE TAB 15 MG TAB PO SCH (19:24)
--- NOTE | 2023-11-30 13:21 | Hospitalist Progress Note ---
Date of Service November 30, 2023 Assessment & Plan (1) Unable to care for self: (2) Dementia: (3) Neurocognitive disorder: (4) Depression: Plan Mr Ragland is a 63-year-old male with PMH of dementia, heavy alcohol abuse, depression with psychotic features and catatonia, polysubstance abuse, cognitive decline since 2019 presenting with family stating they can no longer care for him at home. There have been no changes to management. Course prolonged 2/2 placement. Per previous provider with addendum: History of combative behavior and dementia, recently admitted to our service from 10/02-10/13 awaiting placement and was ultimately discharged home by request of patient's . Was seen by psychiatry during previous admission and was started on aripiprazole 5 mg in the morning (in addition to continuing aripiprazole 10 mg at bedtime, which she had previously been on), as well as starting mirtazapine 15 mg at bedtime as well as vitamin D3, B12 and thiamine supplementations. Reportedly brought to the ED by with request for placement as family unable to provide care at home. UA noted to be positive for e coli. No further concerns at this time. Planning pursuit of placement He was previously treated for the following: Progressive dementia Neurocognitive disorder Unable to care for self History of depression Office of aging involved, complex social situation History of sexual disinhibition per 04/20/2023 reports - previously on estradiol 0.0375 patch -> discussed with psych earlier regarding estrogen patch -> not clear why /when stopped but seems as unnecessary to resume at this time Case management to help with placement Psych consulted on previous admission - continue Abilify 5mg daily, 10mg HS, Mirtazapine 15 HS Evaluated by neuro on previous admission - MRI brain unremarkable, f/u Neuro in 4-6 weeks for further w/u. Recommend outpatient neuropsychiatric testing and follow up with adult neurology in memory clinic (no show for 10/16 appt) PT/OT evaluations for placement: SNF recommended Delirium precautions Continue B12, thiamine and vitamin D supplements states she cannot take patient at this time due to her own medical issues and home dynamics continues to be cooperative with nursing staff and physicians Acute uncomplicated cystitis *resolved History of E coli on previous admission, treated UA abnormal Completed 7 days of CTX pansensitive e coli on culture labs stable DVT prophylaxis: SQ lovenox Code status: FULL PCP: JUAN JOSE Bolden Dispo: awaiting placement Admission and Anticipated Discharge Date Admission Date: October 29, 2023 Subjective NAEO Stated he would consider shower today Denies any new concerns Physical Exam Constitutional: disheveled Respiratory: normal respiratory effort, lungs clear to auscultation Cardiovascular: RRR, no murmur, no edema Results & Data Results & Data Vital Signs (Past 12 Hours) Vital Signs Temp Pulse Resp BP Pulse Ox O2 Del Method 11/30/23 07:55 36.6 C 67 18 105/88 95 Room Air Medications Administered Home Medications Medication Instructions Recorded Confirmed Last Taken aripiprazole 10 mg tablet 10 mg PO HS 30 days #30 tabs 05/24/23 10/29/23 Unknown aripiprazole 5 mg tablet (Abilify) 5 mg PO QAM #30 tabs 10/14/23 10/29/23 Unknown cholecalciferol (vitamin D3) 125 125 mcg PO QAM #30 tabs 10/14/23 10/29/23 Unknown mcg (5,000 unit) tablet cyanocobalamin (vitamin B-12) 100 100 mcg PO QAM #30 tabs 10/14/23 10/29/23 Unknown mcg tablet (Vitamin B-12) mirtazapine 15 mg tablet 15 mg PO HS #30 tabs 10/14/23 10/29/23 Unknown thiamine HCl (vitamin B1) 100 mg 100 mg PO QAM #30 tabs 10/14/23 10/29/23 Unknown tablet Active Medications Generic Name Dose Route Start Last Admin Trade Name Freq PRN Reason Stop Dose Admin Aripiprazole 10 mg 10/29/23 21:00 11/29/23 20:10 Aripiprazole 10 Mg Tab PO 01/05/24 20:59 10 mg HS MICHEL Administration Aripiprazole 5 mg 10/30/23 09:00 11/30/23 07:50 Aripiprazole 5 Mg Tab PO 01/05/24 08:59 5 mg QAM MICHEL Administration Cyanocobalamin 100 mcg 10/30/23 09:00 11/30/23 07:50 Cyanocobalamin (B-12) 100 Mcg Tablet PO 01/05/24 08:59 100 mcg QAM MICHEL Administration Enoxaparin Sodium 40 mg 11/28/23 21:00 11/29/23 20:10 Enoxaparin Inj 40 Mg/0.4 Ml Syr SQ 01/05/24 20:59 40 mg HS MICHEL Administration Mirtazapine 15 mg 11/28/23 21:00 11/29/23 20:10 Mirtazapine Tab 15 Mg Tab PO 01/05/24 20:59 15 mg HS MICHEL Administration Thiamine HCl 100 mg 10/30/23 09:00 11/30/23 07:50 Thiamine Hcl 100 Mg Tab PO 01/05/24 08:59 100 mg QAM MICHEL Administration Vitamin D 125 mcg 10/30/23 09:00 11/30/23 07:50 Cholecalciferol 125 Mcg (5,000 Units) Tab PO 01/05/24 08:59 125 mcg QAM MICHEL Administration (2) Dementia Dementia behavioral or psychological symptom: unspecified whether behavioral, psychotic, or mood disturbance or anxiety Dementia severity: unspecified severity Dementia type: unspecified type Qualified Code(s): F03.90 - Unspecified dementia, unspecified severity, without behavioral disturbance, psychotic disturbance, mood disturbance, and anxiety (4) Depression Depression Type: unspecified Qualified Code(s): F32.A - Depression, unspecified
[2023-12-01 06:07] LABS: Creatinine Clr Calc Pharmacy 68.5 ml/min; Est GFR (African American) 80.3 ml/min; Est GFR (Non-African American) 69.3 ml/min
--- NOTE | 2023-12-01 11:42 | Hospitalist Progress Note ---
Date of Service December 01, 2023 Assessment & Plan (1) Unable to care for self: (2) Dementia: (3) Neurocognitive disorder: (4) Depression: Plan Mr Ragland is a 63-year-old male with PMH of dementia, heavy alcohol abuse, depression with psychotic features and catatonia, polysubstance abuse, cognitive decline since 2019 presenting with family stating they can no longer care for him at home. There have been no changes to management. Course prolonged 2/2 placement. As of 11/30, patient remains medically stable for discharge. Per previous provider with addendum: History of combative behavior and dementia, recently admitted to our service from 10/02-10/13 awaiting placement and was ultimately discharged home by request of patient's . Was seen by psychiatry during previous admission and was started on aripiprazole 5 mg in the morning (in addition to continuing aripiprazole 10 mg at bedtime, which she had previously been on), as well as starting mirtazapine 15 mg at bedtime as well as vitamin D3, B12 and thiamine supplementations. Reportedly brought to the ED by with request for placement as family unable to provide care at home. UA noted to be positive for e coli. No further concerns at this time. Planning pursuit of placement He was previously treated for the following: Progressive dementia Neurocognitive disorder Unable to care for self History of depression Office of aging involved, complex social situation History of sexual disinhibition per 04/20/2023 reports - previously on estradiol 0.0375 patch -> discussed with psych earlier regarding estrogen patch -> not clear why /when stopped but seems as unnecessary to resume at this time Case management to help with placement Psych consulted on previous admission - continue Abilify 5mg daily, 10mg HS, Mirtazapine 15 HS Evaluated by neuro on previous admission - MRI brain unremarkable, f/u Neuro in 4-6 weeks for further w/u. Recommend outpatient neuropsychiatric testing and follow up with adult neurology in memory clinic (no show for 10/16 appt) PT/OT evaluations for placement: SNF recommended Delirium precautions Continue B12, thiamine and vitamin D supplements states she cannot take patient at this time due to her own medical issues and home dynamics continues to be cooperative with nursing staff and physicians Acute uncomplicated cystitis *resolved History of E coli on previous admission, treated UA abnormal Completed 7 days of CTX pansensitive e coli on culture labs stable DVT prophylaxis: SQ lovenox Code status: FULL PCP: JUAN JOSE Bolden Dispo: awaiting placement Admission and Anticipated Discharge Date Admission Date: October 29, 2023 Subjective NAEO Denies any needs at this time Reports sleeping well and declines prospect of shower today Physical Exam Constitutional: WD/WN, vitals as above resting peacefully in bed Respiratory: no distress noted, no use of accessory muscles Neurologic: PERRL, EOMI, accommodation nl, no face palsy, no dysarthria Results & Data Results & Data Vital Signs (Past 12 Hours) Vital Signs Temp Pulse Resp BP Pulse Ox O2 Del Method 12/01/23 07:24 36.6 C 60 17 115/76 95 Room Air Medications Administered Home Medications Medication Instructions Recorded Confirmed Last Taken aripiprazole 10 mg tablet 10 mg PO HS 30 days #30 tabs 05/24/23 10/29/23 Unknown aripiprazole 5 mg tablet (Abilify) 5 mg PO QAM #30 tabs 10/14/23 10/29/23 Unknown cholecalciferol (vitamin D3) 125 125 mcg PO QAM #30 tabs 10/14/23 10/29/23 Unknown mcg (5,000 unit) tablet cyanocobalamin (vitamin B-12) 100 100 mcg PO QAM #30 tabs 10/14/23 10/29/23 Unknown mcg tablet (Vitamin B-12) mirtazapine 15 mg tablet 15 mg PO HS #30 tabs 10/14/23 10/29/23 Unknown thiamine HCl (vitamin B1) 100 mg 100 mg PO QAM #30 tabs 10/14/23 10/29/23 Unknown tablet Active Medications Generic Name Dose Route Start Last Admin Trade Name Freq PRN Reason Stop Dose Admin Aripiprazole 10 mg 10/29/23 21:00 11/30/23 20:19 Aripiprazole 10 Mg Tab PO 01/05/24 20:59 10 mg HS MICHEL Administration Aripiprazole 5 mg 10/30/23 09:00 12/01/23 07:30 Aripiprazole 5 Mg Tab PO 01/05/24 08:59 5 mg QAM MICHEL Administration Cyanocobalamin 100 mcg 10/30/23 09:00 12/01/23 07:30 Cyanocobalamin (B-12) 100 Mcg Tablet PO 01/05/24 08:59 100 mcg QAM MICHEL Administration Enoxaparin Sodium 40 mg 11/28/23 21:00 11/30/23 20:19 Enoxaparin Inj 40 Mg/0.4 Ml Syr SQ 01/05/24 20:59 40 mg HS MICHEL Administration Mirtazapine 15 mg 11/28/23 21:00 11/30/23 20:19 Mirtazapine Tab 15 Mg Tab PO 01/05/24 20:59 15 mg HS MICHEL Administration Thiamine HCl 100 mg 10/30/23 09:00 12/01/23 07:30 Thiamine Hcl 100 Mg Tab PO 01/05/24 08:59 100 mg QAM MICHEL Administration Vitamin D 125 mcg 10/30/23 09:00 12/01/23 07:30 Cholecalciferol 125 Mcg (5,000 Units) Tab PO 01/05/24 08:59 125 mcg QAM MICHEL Administration (2) Dementia Dementia behavioral or psychological symptom: unspecified whether behavioral, psychotic, or mood disturbance or anxiety Dementia severity: unspecified severity Dementia type: unspecified type Qualified Code(s): F03.90 - Unspecified dementia, unspecified severity, without behavioral disturbance, psychotic disturbance, mood disturbance, and anxiety (4) Depression Depression Type: unspecified Qualified Code(s): F32.A - Depression, unspecified
--- NOTE | 2023-12-02 11:07 | Hospitalist Progress Note ---
Date of Service December 02, 2023 Assessment & Plan (1) Unable to care for self: (2) Dementia: (3) Neurocognitive disorder: (4) Depression: Plan Mr Ragland is a 63-year-old male with PMH of dementia, heavy alcohol abuse, depression with psychotic features and catatonia, polysubstance abuse, cognitive decline since 2019 presenting with family stating they can no longer care for him at home. There have been no changes to management. Course prolonged 2/2 placement. Patient remains medically stable for discharge. Discussed with Case Management--referrals pending for placement. Per previous provider with addendum: History of combative behavior and dementia, recently admitted to our service from 10/02-10/13 awaiting placement and was ultimately discharged home by request of patient's . Was seen by psychiatry during previous admission and was started on aripiprazole 5 mg in the morning (in addition to continuing aripiprazole 10 mg at bedtime, which she had previously been on), as well as starting mirtazapine 15 mg at bedtime as well as vitamin D3, B12 and thiamine supplementations. Reportedly brought to the ED by with request for placement as family unable to provide care at home. UA noted to be positive for e coli. No further concerns at this time. Planning pursuit of placement He was previously treated for the following: Progressive dementia Neurocognitive disorder Unable to care for self History of depression Office of aging involved, complex social situation History of sexual disinhibition per 04/20/2023 reports - previously on estradiol 0.0375 patch -> discussed with psych earlier regarding estrogen patch -> not clear why /when stopped but seems as unnecessary to resume at this time Case management to help with placement Psych consulted on previous admission - continue Abilify 5mg daily, 10mg HS, Mirtazapine 15 HS Evaluated by neuro on previous admission - MRI brain unremarkable, f/u Neuro in 4-6 weeks for further w/u. Recommend outpatient neuropsychiatric testing and follow up with adult neurology in memory clinic (no show for 10/16 appt) PT/OT evaluations for placement: SNF recommended Delirium precautions Continue B12, thiamine and vitamin D supplements states she cannot take patient at this time due to her own medical issues and home dynamics continues to be cooperative with nursing staff and physicians Acute uncomplicated cystitis *resolved History of E coli on previous admission, treated UA abnormal Completed 7 days of CTX pansensitive e coli on culture labs stable DVT prophylaxis: SQ lovenox Code status: FULL PCP: JUAN JOSE Bolden Dispo: awaiting placement Admission and Anticipated Discharge Date Admission Date: October 29, 2023 Subjective NAEO Resting, awakens easily to verbal stimuli--states he doesn't feel like getting up at this time and he has no needs or concerns Physical Exam Constitutional: WD/WN, vitals as above Respiratory: normal respiratory effort, lungs clear to auscultation Cardiovascular: RRR, no murmur, no edema Results & Data Results & Data Vital Signs (Past 12 Hours) Vital Signs Temp Pulse Resp BP Pulse Ox O2 Del Method 12/02/23 07:24 36.5 C 51 L 16 109/72 93 Room Air Medications Administered Home Medications Medication Instructions Recorded Confirmed Last Taken aripiprazole 10 mg tablet 10 mg PO HS 30 days #30 tabs 05/24/23 10/29/23 Unknown aripiprazole 5 mg tablet (Abilify) 5 mg PO QAM #30 tabs 10/14/23 10/29/23 Unknown cholecalciferol (vitamin D3) 125 125 mcg PO QAM #30 tabs 10/14/23 10/29/23 Unknown mcg (5,000 unit) tablet cyanocobalamin (vitamin B-12) 100 100 mcg PO QAM #30 tabs 10/14/23 10/29/23 Unknown mcg tablet (Vitamin B-12) mirtazapine 15 mg tablet 15 mg PO HS #30 tabs 10/14/23 10/29/23 Unknown thiamine HCl (vitamin B1) 100 mg 100 mg PO QAM #30 tabs 10/14/23 10/29/23 Unknown tablet Active Medications Generic Name Dose Route Start Last Admin Trade Name Freq PRN Reason Stop Dose Admin Aripiprazole 10 mg 10/29/23 21:00 12/01/23 19:31 Aripiprazole 10 Mg Tab PO 01/05/24 20:59 10 mg HS MICHEL Administration Aripiprazole 5 mg 10/30/23 09:00 12/02/23 08:08 Aripiprazole 5 Mg Tab PO 01/05/24 08:59 5 mg QAM MICHEL Administration Cyanocobalamin 100 mcg 10/30/23 09:00 12/02/23 08:08 Cyanocobalamin (B-12) 100 Mcg Tablet PO 01/05/24 08:59 100 mcg QAM MICHEL Administration Enoxaparin Sodium 40 mg 11/28/23 21:00 12/01/23 19:31 Enoxaparin Inj 40 Mg/0.4 Ml Syr SQ 01/05/24 20:59 40 mg HS MICHEL Administration Mirtazapine 15 mg 11/28/23 21:00 12/01/23 19:31 Mirtazapine Tab 15 Mg Tab PO 01/05/24 20:59 15 mg HS MICHEL Administration Thiamine HCl 100 mg 10/30/23 09:00 12/02/23 08:08 Thiamine Hcl 100 Mg Tab PO 01/05/24 08:59 100 mg QAM MICHEL Administration Vitamin D 125 mcg 10/30/23 09:00 12/02/23 08:08 Cholecalciferol 125 Mcg (5,000 Units) Tab PO 01/05/24 08:59 125 mcg QAM MICHEL Administration (2) Dementia Dementia behavioral or psychological symptom: unspecified whether behavioral, psychotic, or mood disturbance or anxiety Dementia severity: unspecified severity Dementia type: unspecified type Qualified Code(s): F03.90 - Unspecified dementia, unspecified severity, without behavioral disturbance, psychotic disturbance, mood disturbance, and anxiety (4) Depression Depression Type: unspecified Qualified Code(s): F32.A - Depression, unspecified
--- NOTE | 2023-12-03 10:58 | Hospitalist Progress Note ---
Date of Service December 03, 2023 Assessment & Plan (1) Unable to care for self: (2) Dementia: (3) Neurocognitive disorder: (4) Depression: Plan Mr Ragland is a 63-year-old male with PMH of dementia, heavy alcohol abuse, depression with psychotic features and catatonia, polysubstance abuse, cognitive decline since 2019 presenting with family stating they can no longer care for him at home. There have been no changes to management. Course prolonged 2/2 placement. Patient remains medically stable for discharge Discussed with Case Management--referrals pending for placement. Per previous provider with addendum: History of combative behavior and dementia, recently admitted to our service from 10/02-10/13 awaiting placement and was ultimately discharged home by request of patient's . Was seen by psychiatry during previous admission and was s tarted on aripiprazole 5 mg in the morning (in addition to continuing aripiprazole 10 mg at bedtime, which she had previously been on), as well as starting mirtazapine 15 mg at bedtime as well as vitamin D3, B12 and thiamine supplementations. Reportedly brought to the ED by with request for placement as family unable to provide care at home. UA noted to be positive for e coli. No further concerns at this time. Planning pursuit of placement He was previously treated for the following: Progressive dementia Neurocognitive disorder Unable to care for self History of depression Office of aging involved, complex social situation History of sexual disinhibition per 04/20/2023 reports - previously on estradiol 0.0375 patch -> discussed with psych earlier regarding estrogen patch -> not clear why /when stopped but seems as unnecessary to resume at this time Case management to help with placement Psych consulted on previous admission - continue Abilify 5mg daily, 10mg HS, Mirtazapine 15 HS Evaluated by neuro on previous admission - MRI brain unremarkable, f/u Neuro in 4-6 weeks for further w/u. Recommend outpatient neuropsychiatric testing and follow up with adult neurology in memory clinic (no show for 10/16 appt) PT/OT evaluations for placement: SNF recommended Delirium precautions Continue B12, thiamine and vitamin D supplements states she cannot take patient at this time due to her own medical issues and home dynamics continues to be cooperative with nursing staff and physicians Acute uncomplicated cystitis *resolved History of E coli on previous admission, treated UA abnormal Completed 7 days of CTX pansensitive e coli on culture labs stable DVT prophylaxis: SQ lovenox Code status: FULL PCP: JUAN JOSE Bolden Dispo: awaiting placement Admission and Anticipated Discharge Date Admission Date: October 29, 2023 Subjective NAEO Physical Exam Constitutional: WD/WN, vitals as above Respiratory: no respiratory distress, no use of accessory muscles on room air Neurologic: PERRL, EOMI, accommodation nl, no face palsy, no dysarthria Results & Data Results & Data Vital Signs (Past 12 Hours) Vital Signs Temp Pulse Resp BP Pulse Ox O2 Del Method 12/03/23 07:30 36.4 C L 56 L 16 117/79 94 Room Air Medications Administered Home Medications Medication Instructions Recorded Confirmed Last Taken aripiprazole 10 mg tablet 10 mg PO HS 30 days #30 tabs 05/24/23 10/29/23 Unknown aripiprazole 5 mg tablet (Abilify) 5 mg PO QAM #30 tabs 10/14/23 10/29/23 Unkn own cholecalciferol (vitamin D3) 125 125 mcg PO QAM #30 tabs 10/14/23 10/29/23 Unknown mcg (5,000 unit) tablet cyanocobalamin (vitamin B-12) 100 100 mcg PO QAM #30 tabs 10/14/23 10/29/23 Unkn own mcg tablet (Vitamin B-12) mirtazapine 15 mg tablet 15 mg PO HS #30 tabs 10/14/23 10/29/23 Unknown thiamine HCl (vitamin B1) 100 mg 100 mg PO QAM #30 tabs 10/14/23 10/29/23 Unknown tablet Active Medications Generic Name Dose Route Start Last Admin Trade Name Lisa PRN Reason Stop Dose Admin Aripiprazole 10 mg 10/29/23 21:00 12/02/23 21:00 Aripiprazole 10 Mg Tab PO 01/05/24 20:59 10 mg HS MICHEL Administration Aripiprazole 5 mg 10/30/23 09:00 12/03/23 07:33 Aripiprazole 5 Mg Tab PO 01/05/24 08:59 5 mg QAM MICHEL Administration Cyanocobalamin 100 mcg 10/30/23 09:00 12/03/23 07:33 Cyanocobalamin (B-12) 100 Mcg Tablet PO 01/05/24 08:59 100 mcg QAM MICHEL Administration Enoxaparin Sodium 40 mg 11/28/23 21:00 12/02/23 21:00 Enoxaparin Inj 40 Mg/0.4 Ml Syr SQ 01/05/24 20:59 40 mg HS MICHEL Administration Mirtazapine 15 mg 11/28/23 21:00 12/02/23 21:01 Mirtazapine Tab 15 Mg Tab PO 01/05/24 20:59 15 mg HS MICHEL Administration Thiamine HCl 100 mg 10/30/23 09:00 12/03/23 07:32 Thiamine Hcl 100 Mg Tab PO 01/05/24 08:59 100 mg QAM MICHEL Administration Vitamin D 125 mcg 10/30/23 09:00 12/03/23 07:32 Cholecalciferol 125 Mcg (5,000 Units) Tab PO 01/05/24 08:59 125 mcg QAM MICHEL Administration (2) Dementia Dementia behavioral or psychological symptom: unspecified whether behavioral, psychotic, or mood disturbance or anxiety Dementia severity: unspecified severity Dementia type: unspecified type Qualified Code(s): F03.90 - Unspecified dementia, unspecified severity, without behavioral disturbance, psychotic disturbance, mood disturbance, and anxiety (4) Depression Depression Type: unspecified Qualified Code(s): F32.A - Depression, unspecified
[2023-12-04 08:35] LABS: Creatinine Clr Calc Pharmacy 73.1 ml/min; Est GFR (African American) 86.9 ml/min
--- NOTE | 2023-12-04 12:03 | Hospitalist Progress Note ---
Date of Service December 04, 2023 Assessment & Plan (1) Unable to care for self: (2) Dementia: (3) Neurocognitive disorder: (4) Depression: Plan Mr Ragland is a 63-year-old male with PMH of dementia, heavy alcohol abuse, depression with psychotic features and catatonia, polysubstance abuse, cognitive decline since 2019 presenting with family stating they can no longer care for him at home. There have been no changes to management. Course prolonged secondary to placement. Patient remains medically stable for discharge Per [facility] accept, however pt's in discussion about the financial aspect of placement Per previous provider with addendum: History of combative behavior and dementia, recently admitted to our service from 10/02-10/13 awaiting placement and was ultimately discharged home by request of patient's . Was seen by psychiatry during previous admission and was started on aripiprazole 5 mg in the morning (in addition to continuing aripiprazole 10 mg at bedtime, which she had previously been on), as well as starting mirtazapine 15 mg at bedtime as well as vitamin D3, B12 and thiamine supplementations. Reportedly brought to the ED by with request for placement as family unable to provide care at home. UA noted to be positive for e coli. No further concerns at this time. Planning pursuit of placement He was previously treated for the following: Progressive dementia Neurocognitive disorder Unable to care for self History of depression Office of aging involved, complex social situation History of sexual disinhibition per 04/20/2023 reports - previously on estradiol 0.0375 patch -> discussed with psych earlier regarding estrogen patch -> not clear why /when stopped but seems as unnecessary to resume at this time Case management to help with placement Psych consulted on previous admission - continue Abilify 5mg daily, 10mg HS, Mirtazapine 15 HS Evaluated by neuro on previous admission - MRI brain unremarkable, f/u Neuro in 4-6 weeks for further w/u. Recommend outpatient neuropsychiatric testing and follow up with adult neurology in memory clinic (no show for 10/16 appt) PT/OT evaluations for placement: SNF recommended Delirium precautions Continue B12, thiamine and vitamin D supplements states she cannot take patient at this time due to her own medical issues and home dynamics continues to be cooperative with nursing staff and physicians Acute uncomplicated cystitis *resolved History of E coli on previous admission, treated UA abnormal Completed 7 days of CTX pansensitive e coli on culture labs stable DVT prophylaxis: SQ lovenox Code status: FULL PCP: JUAN JOSE Bolden Dispo: awaiting placement Admission and Anticipated Discharge Date Admission Date: October 29, 2023 Subjective pt was seen laying in bed. Denies acute concerns Review of Systems Review of Systems: All systems reviewed & are unremarkable except as noted in Subjective Physical Exam Physical Exam: General: Alert, No acute distress Neuro: No gross deficits in the bed HEENT: NC/AT CV: RRR Resp: breath sounds clear bilaterally, no increased effort of breathing Abdomen: Soft Extremities: No edema in lower extremities bilaterally. Results & Data Results & Data Vital Signs (Past 12 Hours) Vital Signs Temp Pulse Resp BP Pulse Ox O2 Del Method 12/04/23 07:33 36.3 C L 53 L 16 114/74 96 Room Air (2) Dementia Dementia behavioral or psychological symptom: unspecified whether behavioral, psychotic, or mood disturbance or anxiety Dementia severity: unspecified severity Dementia type: unspecified type Qualified Code(s): F03.90 - Unspecified dementia, unspecified severity, without behavioral disturbance, psychotic disturbance, mood disturbance, and anxiety (4) Depression Depression Type: unspecified Qualified Code(s): F32.A - Depression, unspecified
--- NOTE | 2023-12-05 11:33 | Hospitalist Progress Note ---
Date of Service December 05, 2023 Assessment & Plan (1) Unable to care for self: (2) Dementia: (3) Neurocognitive disorder: (4) Depression: Plan Samuel Ragland is a 63y/o M with PMHx of dementia, heavy alcohol abuse, depression with psychotic features and catatonia, polysubstance abuse, cognitive decline since 2019 who presented with family stating they can no longer care for him at home. There have been no changes to management. Course prolonged secondary to placement. Patient remains medically stable for discharge. Per previous provider: History of combative behavior and dementia, recently admitted to our service from 10/02-10/13 awaiting placement and was ultimately discharged home by request of patient's . Was seen by psychiatry during previous admission and was started on aripiprazole 5 mg in the morning (in addition to continuing aripiprazole 10 mg at bedtime, which she had previously been on), as well as starting mirtazapine 15 mg at bedtime as well as vitamin D3, B12 and thiamine supplementations. Reportedly brought to the ED by with request for placement as family unable to provide care at home. UA noted to be positive for e coli. No further concerns at this time. Planning pursuit of placement. He was previously treated for the following: Progressive Dementia, Neurocognitive Disorder Unable to Care for Self & History of Depression Office of aging involved, complex social situation. Case management to help with placement. History of sexual disinhibition per 04/20/2023 reports. Previously on estradiol 0.0375 patch -> discussed with psych earlier regarding estrogen patch -> not clear why/when stopped but seems unnecessary to resume at this time. Psych consulted on previous admission - continue Abilify 5mg daily, 10mg HS, Mirtazapine 15 HS. Evaluated by neuro on previous admission; MRI brain unremarkable, f/u Neuro in 4-6 weeks for further w/u. Recommend outpatient neuropsychiatric testing and follow up with adult neurology in memory clinic (no show for 10/16 appt). PT/OT evaluations for placement: SNF recommended Delirium precautions; Continue B12, thiamine and vitamin D supplements. states she cannot take patient at this time due to her own medical issues and home dynamics; Continues to be cooperative with nursing staff and physicians. Acute Uncomplicated Cystitis - RESOLVED History of E coli on previous admission, treated. UA abnormal - completed 7 days of CTX. Pansensitive E. coli on culture; labs stable. DVT Prophylaxis: SQ Lovenox Code Status: FULL CODE PCP: JUAN JOSE Bolden Disposition: Patient is able to be accepted to [facility] on Saturday (12/08). Per 's documentation today [Cielo Wilson, RN]: "Spoke with Da at [facility] who was in contact with pt today. He is able to accept on Saturday for admission. CM to talk with pt regarding transport and will arrange if necessary." Patient seen in collaboration with Dr. Moore. Please see addendum. I spent a total of 40 minutes coordinating, documenting, and providing care for this patient excluding time spent in the performance of separately billed services. This included personally reviewing all current laboratories and imaging studies, medical reconciliation, outpatient chart review and discussion with specialists. This chart was completed in part utilizing Speech Voice Recognition Software. Grammatical errors, random word insertions, pronoun errors, and incomplete sentences are an occasional consequence of this system due to software limitations, ambient noise, and hardware issues. Any formal questions or concerns about the content, text, or information contained within the body of this dictation should be directly addressed to the provider for clarification. Admission and Anticipated Discharge Date Admission Date: October 29, 2023 Supervising Physician Co-Signing Physician Notes Pt was seen and examined by myself, Samantha Moore MD on the day of service. Care was coordinated with Leesa Weiss PA-C. 63yoM currently awaiting H placement. Has been here for 37 days. Denies acute complaints in the room. Per CM to be discharged to [facility] on 12/08 Otherwise as above. I spent a total [id number] coordinating, documenting, and providing care for this patient excluding time spent in the performance of separately billed services Subjective Patient seen and examined at bedside in room E307-1. Patient offers no concerns or complaints at this time. He is tolerating his diet without issue and has been cooperative with nursing staff. Review of Systems Review of Systems: At least ten systems reviewed and negative, except as noted in the HPI. Physical Exam Physical Exam: General: NAD, sitting up in bed, alert, unkempt appearance, A+Ox3. HEENT: Normocephalic, atraumatic. Conjunctivae normal, anicteric sclerae, oropharynx normal. Respiratory: Normal respiratory effort, lungs clear to auscultation, no wheeze, rales, rhonchi. No accessory muscle use. Cardiovascular: Regular rate, rhythm, no murmur, normal peripheral pulses, no BLE edema. Vessels: No JVD. Abdomen/GI: Normal bowel sounds, soft, nontender, no hepatosplenomegaly. Extremities/Musculoskeletal: No cyanosis or clubbing, extremities motor strength not formally tested. Neurologic: PERRL, EOMI, accommodation nl, no face palsy, no dysarthria. Skin: No rashes, normal color, warm/dry. Results & Data Results & Data Vital Signs (Past 12 Hours) Vital Signs Temp Pulse Resp BP Pulse Ox O2 Del Method 12/05/23 07:31 36.5 C 57 L 16 123/82 93 Room Air Diagnostic Findings Chest X-Ray 10/29/23 13:57 XR chest 1V portable CLINICAL HISTORY: weakness TECHNIQUE: Single frontal radiograph of the chest was obtained. Comparison: None available at the time of this dictation. FINDINGS: No lines and tubes are seen. The cardiomediastinal silhouette is normal. The lungs are clear. No evidence of pleural effusion or pneumothorax. IMPRESSION: No acute chest disease. ACT 112: Negative or not required by law. Electronically signed by: Georgi Norris M.D. 10/29/2023 2:[address] 10/29/23 13:57 CT SCAN OF THE BRAIN WITHOUT IV CONTRAST CLINICAL HISTORY: Change in mental status. Combative behavior. COMPARISON STUDY: CT of the brain dated 04/28/2023. MRI of the brain dated 10/08/2023. TECHNIQUE: Unenhanced axial CT scan of the brain is performed from the vertex to the skull base. A dose lowering technique was utilized adhering to the principles of ALARA. CT DOSE: 703.85 mGy.cm FINDINGS: Brain parenchyma: The brain parenchyma is normal in appearance. There is no hemorrhage, mass effect, or evidence of acute territorial ischemia by CT criteria. Song-white matter differentiation is preserved. No extra-axial fluid collection is seen. Ventricles, sulci, cisterns: Normal in configuration. Intracranial vasculature: The visualized intracranial vasculature at the skull base is normal in appearance. Calvarium: Unremarkable. Sinuses and mastoids: The visualized paranasal sinuses are clear. The mastoid air cells are well pneumatized. Orbits: The bony orbits are grossly intact. IMPRESSION: No acute intracranial abnormality. ACT 112: Negative or not required by law. Electronically signed by: Felice Granados M.D. 10/29/2023 2:30 PM Medications Administered Aripiprazole (Aripiprazole 10 Mg Tab) 10 mg PO HS [facility] Stop: 01/05/24 20:59 Last Admin: 12/04/23 20:11 Dose: 10 mg Documented By: Admin: 12/03/23 20:19 Dose: 10 mg Documented By: Admin: 12/02/23 21:00 Dose: 10 mg Documented By: Admin: 12/01/23 19:31 Dose: 10 mg Documented By: Admin: 11/30/23 20:19 Dose: 10 mg Documented By: Admin: 11/29/23 20:10 Dose: 10 mg Documented By: Admin: 11/28/23 20:42 Dose: 10 mg Documented By: Admin: 11/27/23 21:11 Dose: 10 mg Documented By: Admin: 11/26/23 20:32 Dose: 10 mg Documented By: Admin: 11/25/23 21:09 Dose: 10 mg Documented By: Admin: 11/24/23 20:35 Dose: 10 mg Documented By: Admin: 11/23/23 20:51 Dose: 10 mg Documented By: Admin: 11/22/23 20:55 Dose: 10 mg Documented By: Admin: 11/21/23 20:37 Dose: 10 mg Documented By: Admin: 11/20/23 20:25 Dose: 10 mg Documented By: Admin: 11/19/23 21:27 Dose: 10 mg Documented By: Admin: 11/18/23 21:07 Dose: 10 mg Documented By: Admin: 11/17/23 20:44 Dose: 10 mg Documented By: Admin: 11/16/23 21:28 Dose: 10 mg Documented By: Admin: 11/15/23 20:24 Dose: 10 mg Documented By: Admin: 11/14/23 20:05 Dose: 10 mg Documented By: Admin: 11/13/23 21:12 Dose: 10 mg Documented By: Admin: 11/12/23 21:47 Dose: 10 mg Documented By: Admin: 11/11/23 21:25 Dose: 10 mg Documented By: Admin: 11/10/23 20:51 Dose: 10 mg Documented By: Admin: 11/09/23 19:31 Dose: 10 mg Documented By: Admin: 11/08/23 19:53 Dose: 10 mg Documented By: Admin: 11/07/23 19:24 Dose: 10 mg Documented By: Admin: 11/06/23 20:44 Dose: 10 mg Documented By: Admin: 11/05/23 20:05 Dose: 10 mg Documented By: Admin: 11/04/23 19:47 Dose: 10 mg Documented By: Admin: 11/03/23 21:25 Dose: 10 mg Documented By: Admin: 11/02/23 20:12 Dose: 10 mg Documented By: Admin: 11/01/23 21:43 Dose: 10 mg Documented By: Admin: 10/31/23 20:18 Dose: 10 mg Documented By: Admin: 10/30/23 19:53 Dose: 10 mg Documented By: Admin: 10/29/23 20:53 Dose: 10 mg Documented By: TKB Aripiprazole (Aripiprazole 5 Mg Tab) [facility] Stop: 01/05/24 08:59 Last Admin: 12/05/23 08:37 Dose: 5 mg Documented By: Admin: 12/04/23 09:01 Dose: 5 mg Documented By: Admin: 12/03/23 07:33 Dose: 5 mg Documented By: Admin: 12/02/23 08:08 Dose: 5 mg Documented By: Admin: 12/01/23 07:30 Dose: 5 mg Documented By: Admin: 11/30/23 07:50 Dose: 5 mg Documented By: Admin: 11/29/23 15:12 Dose: Not Given Documented By: Admin: 11/28/23 08:01 Dose: 5 mg Documented By: Admin: 11/27/23 08:57 Dose: 5 mg Documented By: Admin: 11/26/23 07:14 Dose: 5 mg Documented By: Admin: 11/25/23 09:10 Dose: 5 mg Documented By: Admin: 11/24/23 08:10 Dose: 5 mg Documented By: Admin: 11/23/23 08:31 Dose: 5 mg Documented By: DLS(2) Admin: 11/22/23 08:31 Dose: 5 mg Documented By: Admin: 11/21/23 07:19 Dose: 5 mg Documented By: Admin: 11/20/23 08:28 Dose: 5 mg Documented By: Admin: 11/19/23 07:23 Dose: 5 mg Documented By: Admin: 11/18/23 07:20 Dose: 5 mg Documented By: Admin: 11/17/23 08:53 Dose: 5 mg Documented By: Admin: 11/16/23 07:46 Dose: 5 mg Documented By: Admin: 11/15/23 08:08 Dose: 5 mg Documented By: Admin: 11/14/23 08:25 Dose: 5 mg Documented By: Admin: 11/13/23 08:13 Dose: 5 mg Documented By: Admin: 11/12/23 08:00 Dose: 5 mg Documented By: Admin: 11/11/23 08:43 Dose: 5 mg Documented By: Admin: 11/10/23 08:08 Dose: 5 mg Documented By: Admin: 11/09/23 08:00 Dose: 5 mg Documented By: Admin: 11/08/23 07:47 Dose: 5 mg Documented By: Admin: 11/07/23 08:26 Dose: 5 mg Documented By: Admin: 11/06/23 09:19 Dose: 5 mg Documented By: Admin: 11/05/23 09:36 Dose: 5 mg Documented By: Admin: 11/04/23 08:01 Dose: 5 mg Documented By: Admin: 11/03/23 08:06 Dose: 5 mg Documented By: PORTILLOD(2) Admin: 11/02/23 09:03 Dose: 5 mg Documented By: AASantos Admin: 11/01/23 08:17 Dose: 5 mg Documented By: Admin: 10/31/23 08:12 Dose: 5 mg Documented By: Admin: 10/30/23 07:46 Dose: 5 mg Documented By: CRISPIN Cyanocobalamin (Cyanocobalamin (B-12) 100 Mcg Tablet) 100 mcg PO QAM [facility] Stop: 01/05/24 08:59 Last Admin: 12/05/23 08:37 Dose: 100 mcg Documented By: Admin: 12/04/23 09:01 Dose: 100 mcg Documented By: Admin: 12/03/23 07:33 Dose: 100 mcg Documented By: Admin: 12/02/23 08:08 Dose: 100 mcg Documented By: HMSantos Admin: 12/01/23 07:30 Dose: 100 mcg Documented By: Admin: 11/30/23 07:50 Dose: 100 mcg Documented By: Admin: 11/29/23 15:12 Dose: Not Given Documented By: Admin: 11/28/23 08:01 Dose: 100 mcg Documented By: JOSE RAFAEL Admin: 11/27/23 08:57 Dose: 100 mcg Documented By: JOSE RAFAEL Admin: 11/26/23 07:13 Dose: 100 mcg Documented By: Admin: 11/25/23 09:10 Dose: 100 mcg Documented By: Admin: 11/24/23 08:10 Dose: 100 mcg Documented By: Admin: 11/23/23 08:31 Dose: 100 mcg Documented By: MICHA(2) Admin: 11/22/23 08:31 Dose: 100 mcg Documented By: Admin: 11/21/23 07:19 Dose: 100 mcg Documented By: Admin: 11/20/23 08:28 Dose: 100 mcg Documented By: Admin: 11/19/23 07:23 Dose: 100 mcg Documented By: Admin: 11/18/23 07:20 Dose: 100 mcg Documented By: Admin: 11/17/23 08:53 Dose: 100 mcg Documented By: Admin: 11/16/23 07:46 Dose: 100 mcg Documented By: Admin: 11/15/23 08:08 Dose: 100 mcg Documented By: Admin: 11/14/23 08:25 Dose: 100 mcg Documented By: Admin: 11/13/23 08:14 Dose: 100 mcg Documented By: Admin: 11/12/23 08:00 Dose: 100 mcg Documented By: Admin: 11/11/23 08:43 Dose: 100 mcg Documented By: Admin: 11/10/23 08:08 Dose: 100 mcg Documented By: Admin: 11/09/23 08:00 Dose: 100 mcg Documented By: Admin: 11/08/23 07:47 Dose: 100 mcg Documented By: Admin: 11/07/23 08:27 Dose: 100 mcg Documented By: Admin: 11/06/23 09:19 Dose: 100 mcg Documented By: Admin: 11/05/23 09:36 Dose: 100 mcg Documented By: Admin: 11/04/23 08:01 Dose: 100 mcg Documented By: Admin: 11/03/23 08:06 Dose: 100 mcg Documented By: JOSE RAFAEL(2) Admin: 11/02/23 09:03 Dose: 100 mcg Documented By: Admin: 11/01/23 08:17 Dose: 100 mcg Documented By: Admin: 10/31/23 08:11 Dose: 100 mcg Documented By: Admin: 10/30/23 07:46 Dose: 100 mcg Documented By: CRIPSIN Enoxaparin Sodium (Enoxaparin Inj 40 Mg/0.4 Ml Syr) 40 mg SQ HS [facility] Stop: 01/05/24 20:59 Last Admin: 12/04/23 20:11 Dose: 40 mg Documented By: Admin: 12/03/23 20:19 Dose: 40 mg Documented By: Admin: 12/02/23 21:00 Dose: 40 mg Documented By: Admin: 12/01/23 19:31 Dose: 40 mg Documented By: Admin: 11/30/23 20:19 Dose: 40 mg Documented By: Admin: 11/29/23 20:10 Dose: 40 mg Documented By: Admin: 11/28/23 19:24 Dose: 40 mg Documented By: ANA Mirtazapine (Mirtazapine Tab 15 Mg Tab) 15 mg PO HS [facility] Stop: 01/05/24 20:59 Last Admin: 12/04/23 20:11 Dose: 15 mg Documented By: Admin: 12/03/23 20:19 Dose: 15 mg Documented By: Admin: 12/02/23 21:01 Dose: 15 mg Documented By: Admin: 12/01/23 19:31 Dose: 15 mg Documented By: Admin: 11/30/23 20:19 Dose: 15 mg Documented By: Admin: 11/29/23 20:10 Dose: 15 mg Documented By: Admin: 11/28/23 19:24 Dose: 15 mg Documented By: TKB Thiamine HCl (Thiamine Hcl 100 Mg Tab) 100 mg PO QAM [facility] Stop: 01/05/24 08:59 Last Admin: 12/05/23 08:37 Dose: 100 mg Documented By: Admin: 12/04/23 09:01 Dose: 100 mg Documented By: Admin: 12/03/23 07:32 Dose: 100 mg Documented By: Admin: 12/02/23 08:08 Dose: 100 mg Documented By: Admin: 12/01/23 07:30 Dose: 100 mg Documented By: Admin: 11/30/23 07:50 Dose: 100 mg Documented By: WRGladis Admin: 11/29/23 15:12 Dose: Not Given Documented By: Admin: 11/28/23 08:01 Dose: 100 mg Documented By: RRBenjamin Admin: 11/27/23 08:57 Dose: 100 mg Documented By: RRBenjamin Admin: 11/26/23 07:13 Dose: 100 mg Documented By: Admin: 11/25/23 12:42 Dose: 100 mg Documented By: Admin: 11/24/23 08:10 Dose: 100 mg Documented By: Admin: 11/23/23 08:31 Dose: 100 mg Documented By: MICHA(2) Admin: 11/22/23 08:31 Dose: 100 mg Documented By: Admin: 11/21/23 07:19 Dose: 100 mg Documented By: Admin: 11/20/23 08:28 Dose: 100 mg Documented By: Admin: 11/19/23 07:23 Dose: 100 mg Documented By: Admin: 11/18/23 07:20 Dose: 100 mg Documented By: Admin: 11/17/23 08:52 Dose: 100 mg Documented By: Admin: 11/16/23 07:46 Dose: 100 mg Documented By: Admin: 11/15/23 08:08 Dose: 100 mg Documented By: Admin: 11/14/23 08:25 Dose: 100 mg Documented By: Admin: 11/13/23 08:14 Dose: 100 mg Documented By: Admin: 11/12/23 08:00 Dose: 100 mg Documented By: Admin: 11/11/23 08:43 Dose: 100 mg Documented By: Admin: 11/10/23 08:08 Dose: 100 mg Documented By: Admin: 11/09/23 08:01 Dose: 100 mg Documented By: Admin: 11/08/23 07:47 Dose: 100 mg Documented By: Admin: 11/07/23 08:26 Dose: 100 mg Documented By: Admin: 11/06/23 09:19 Dose: 100 mg Documented By: Admin: 11/05/23 09:36 Dose: 100 mg Documented By: Admin: 11/04/23 08:01 Dose: 100 mg Documented By: Admin: 11/03/23 08:06 Dose: 100 mg Documented By: JOSE RAFAEL(2) Admin: 11/02/23 09:03 Dose: 100 mg Documented By: Admin: 11/01/23 08:17 Dose: 100 mg Documented By: Admin: 10/31/23 08:11 Dose: 100 mg Documented By: Admin: 10/30/23 07:46 Dose: 100 mg Documented By: CRISPIN Vitamin D (Cholecalciferol 125 Mcg (5,000 Units) Tab) [facility] Stop: 01/05/24 08:59 Last Admin: 12/05/23 08:37 Dose: 125 mcg Documented By: Admin: 12/04/23 09:01 Dose: 125 mcg Documented By: Admin: 12/03/23 07:32 Dose: 125 mcg Documented By: [facility] Admin: 12/02/23 08:08 Dose: 125 mcg Documented By: HMSantos Admin: 12/01/23 07:30 Dose: 125 mcg Documented By: Admin: 11/30/23 07:50 Dose: 125 mcg Documented By: Admin: 11/29/23 15:12 Dose: Not Given Documented By: Admin: 11/28/23 08:01 Dose: 125 mcg Documented By: JOSE RAFAEL Admin: 11/27/23 08:57 Dose: 125 mcg Documented By: JOSE RAFAEL Admin: 11/26/23 07:14 Dose: 125 mcg Documented By: Admin: 11/25/23 09:10 Dose: 125 mcg Documented By: Admin: 11/24/23 08:10 Dose: 125 mcg Documented By: Admin: 11/23/23 08:31 Dose: 125 mcg Documented By: MICHA(2) Admin: 11/22/23 08:32 Dose: 125 mcg Documented By: Admin: 11/21/23 07:19 Dose: 125 mcg Documented By: Admin: 11/20/23 08:28 Dose: 125 mcg Documented By: Admin: 11/19/23 07:23 Dose: 125 mcg Documented By: Admin: 11/18/23 07:19 Dose: 125 mcg Documented By: Admin: 11/17/23 08:52 Dose: 125 mcg Documented By: Admin: 11/16/23 07:46 Dose: 125 mcg Documented By: Admin: 11/15/23 08:08 Dose: 125 mcg Documented By: Admin: 11/14/23 08:25 Dose: 125 mcg Documented By: Admin: 11/13/23 08:14 Dose: 125 mcg Documented By: Admin: 11/12/23 08:00 Dose: 125 mcg Documented By: Admin: 11/11/23 08:43 Dose: 125 mcg Documented By: Admin: 11/10/23 08:08 Dose: 125 mcg Documented By: Admin: 11/09/23 08:00 Dose: 125 mcg Documented By: Admin: 11/08/23 07:47 Dose: 125 mcg Documented By: Admin: 11/07/23 08:27 Dose: 125 mcg Documented By: Admin: 11/06/23 09:19 Dose: 125 mcg Documented By: Admin: 11/05/23 09:36 Dose: 125 mcg Documented By: Admin: 11/04/23 08:01 Dose: 125 mcg Documented By: Admin: 11/03/23 08:06 Dose: 125 mcg Documented By: RRBenjamin(2) Admin: 11/02/23 09:03 Dose: 125 mcg Documented By: Admin: 11/01/23 08:17 Dose: 125 mcg Documented By: Admin: 10/31/23 08:11 Dose: 125 mcg Documented By: Admin: 10/30/23 07:46 Dose: 125 mcg Documented By: CRISPIN Discontinued Medications Enoxaparin Sodium (Enoxaparin Inj 40 Mg/0.4 Ml Syr) 40 mg SQ Q24H [facility] Stop: 11/28/23 18:29 Last Admin: 11/27/23 17:42 Dose: 40 mg Documented By: Admin: 11/26/23 17:29 Dose: 40 mg Documented By: Admin: 11/25/23 18:10 Dose: 40 mg Documented By: Admin: 11/24/23 18:11 Dose: 40 mg Documented By: Admin: 11/23/23 18:19 Dose: 40 mg Documented By: MICHA(2) Admin: 11/22/23 18:14 Dose: 40 mg Documented By: Admin: 11/21/23 17:48 Dose: 40 mg Documented By: Admin: 11/20/23 17:37 Dose: 40 mg Documented By: Admin: 11/19/23 18:08 Dose: 40 mg Documented By: Admin: 11/18/23 17:33 Dose: 40 mg Documented By: WRGladis Admin: 11/17/23 18:09 Dose: 40 mg Documented By: Admin: 11/16/23 18:11 Dose: Not Given Documented By: Admin: 11/15/23 18:49 Dose: 40 mg Documented By: Admin: 11/14/23 18:21 Dose: 40 mg Documented By: Admin: 11/13/23 18:01 Dose: 40 mg Documented By: Admin: 11/12/23 18:20 Dose: 40 mg Documented By: Admin: 11/11/23 18:10 Dose: 40 mg Documented By: Admin: 11/10/23 18:02 Dose: 40 mg Documented By: Admin: 11/09/23 18:27 Dose: 40 mg Documented By: Admin: 11/08/23 18:36 Dose: 40 mg Documented By: Admin: 11/07/23 18:29 Dose: 40 mg Documented By: Admin: 11/06/23 18:20 Dose: 40 mg Documented By: Admin: 11/05/23 17:57 Dose: 40 mg Documented By: Admin: 11/04/23 18:24 Dose: 40 mg Documented By: Admin: 11/03/23 18:22 Dose: 40 mg Documented By: Admin: 11/02/23 17:38 Dose: 40 mg Documented By: Admin: 11/01/23 18:08 Dose: 40 mg Documented By: Admin: 10/31/23 18:27 Dose: 40 mg Documented By: Admin: 10/30/23 19:24 Dose: 40 mg Documented By: Admin: 10/29/23 18:28 Dose: 40 mg Documented By: SILVINO Sodium Chloride (Nss) 1,000 mls @ 999 mls/hr IV .Q1H1M [facility] Stop: 10/29/23 15:00 Last Infusion: 10/29/23 15:37 Dose: Infused Documented By: Admin: 10/29/23 14:00 Dose: 999 mls/hr Documented By: AFUA Ceftriaxone Sodium (Rocephin) 2,000 mg in 50 mls @ 100 mls/hr IV Q24H [facility] Stop: 11/08/23 18:29 Last Infusion: 11/04/23 19:04 Dose: Infused Documented By: Admin: 11/04/23 18:25 Dose: 100 mls/hr Documented By: Infusion: 11/03/23 19:02 Dose: Infused Documented By: Admin: 11/03/23 18:22 Dose: 100 mls/hr Documented By: Infusion: 11/02/23 18:11 Dose: Infused Documented By: Admin: 11/02/23 17:38 Dose: 100 mls/hr Documented By: Infusion: 11/01/23 18:47 Dose: Infused Documented By: Admin: 11/01/23 18:03 Dose: 100 mls/hr Documented By: Infusion: 10/31/23 18:27 Dose: Infused Documented By: Admin: 10/31/23 17:42 Dose: 100 mls/hr Documented By: Infusion: 10/30/23 19:55 Dose: Infused Documented By: Admin: 10/30/23 19:24 Dose: 100 mls/hr Documented By: Infusion: 10/29/23 20:25 Dose: Infused Documented By: Admin: 10/29/23 18:28 Dose: 100 mls/hr Documented By: SILVINO Mirtazapine (Mirtazapine Tab 15 Mg Tab) 15 mg PO HS [facility] Stop: 11/28/23 20:59 Last Admin: 11/27/23 21:11 Dose: 15 mg Documented By: Admin: 11/26/23 20:32 Dose: 15 mg Documented By: Admin: 11/25/23 21:09 Dose: 15 mg Documented By: Admin: 11/24/23 20:35 Dose: 15 mg Documented By: Admin: 11/23/23 20:51 Dose: 15 mg Documented By: Admin: 11/22/23 20:55 Dose: 15 mg Documented By: Admin: 11/21/23 20:37 Dose: 15 mg Documented By: Admin: 11/20/23 20:25 Dose: 15 mg Documented By: Admin: 11/19/23 21:27 Dose: 15 mg Documented By: Admin: 11/18/23 21:07 Dose: 15 mg Documented By: Admin: 11/17/23 20:44 Dose: 15 mg Documented By: Admin: 11/16/23 21:27 Dose: 15 mg Documented By: Admin: 11/15/23 20:24 Dose: 15 mg Documented By: Admin: 11/14/23 20:05 Dose: 15 mg Documented By: Admin: 11/13/23 21:12 Dose: 15 mg Documented By: Admin: 11/12/23 21:47 Dose: 15 mg Documented By: Admin: 11/11/23 21:25 Dose: 15 mg Documented By: Admin: 11/10/23 20:51 Dose: 15 mg Documented By: Admin: 11/09/23 19:31 Dose: 15 mg Documented By: Admin: 11/08/23 19:53 Dose: 15 mg Documented By: Admin: 11/07/23 19:24 Dose: 15 mg Documented By: Admin: 11/06/23 20:44 Dose: 15 mg Documented By: Admin: 11/05/23 20:05 Dose: 15 mg Documented By: Admin: 11/04/23 19:47 Dose: 15 mg Documented By: Admin: 11/03/23 21:24 Dose: 15 mg Documented By: Admin: 11/02/23 20:12 Dose: 15 mg Documented By: Admin: 11/01/23 21:43 Dose: 15 mg Documented By: Admin: 10/31/23 20:18 Dose: 15 mg Documented By: Admin: 10/30/23 19:53 Dose: 15 mg Documented By: Admin: 10/29/23 20:53 Dose: 15 mg Documented By: TKB (2) Dementia Dementia behavioral or psychological symptom: unspecified whether behavioral, psychotic, or mood disturbance or anxiety Dementia severity: unspecified severity Dementia type: unspecified type Qualified Code(s): F03.90 - Unspecified dementia, unspecified severity, without behavioral disturbance, psychotic disturbance, mood disturbance, and anxiety (4) Depression Depression Type: unspecified Qualified Code(s): F32.A - Depression, unspecified
--- NOTE | 2023-12-06 13:34 | Hospitalist Progress Note ---
Date of Service December 06, 2023 Assessment & Plan (1) Unable to care for self: (2) Dementia: (3) Neurocognitive disorder: (4) Depression: Plan Mr Ragland is a 63-year-old male with PMH of dementia, heavy alcohol abuse, depression with psychotic features and catatonia, polysubstance abuse, cognitive decline since 2019 presenting with family stating they can no longer care for him at home. There have been no changes to management. Course prolonged secondary to placement. Patient remains medically stable for discharge [facility] accept on Sat12/09/23 Per previous provider with addendum: History of combative behavior and dementia, recently admitted to our service from 10/02-10/13 awaiting placement and was ultimately discharged home by request of patient's . Was seen by psychiatry during previous admission and was started on aripiprazole 5 mg in the morning (in addition to continuing aripiprazole 10 mg at bedtime, which she had previously been on), as well as starting mirtazapine 15 mg at bedtime as well as vitamin D3, B12 and thiamine supplementations. Reportedly brought to the ED by with request for placement as family unable to provide care at home. UA noted to be positive for e coli. No further concerns at this time. Planning pursuit of placement He was previously treated for the following: Progressive dementia Neurocognitive disorder Unable to care for self History of depression Office of aging involved, complex social situation History of sexual disinhibition per 04/20/2023 reports - previously on estradiol 0.0375 patch -> discussed with psych earlier regarding estrogen patch -> not clear why /when stopped but seems as unnecessary to resume at this time Case management to help with placement Psych consulted on previous admission - continue Abilify 5mg daily, 10mg HS, Mirtazapine 15 HS Evaluated by neuro on previous admission - MRI brain unremarkable, f/u Neuro in 4-6 weeks for further w/u. Recommend outpatient neuropsychiatric testing and follow up with adult neurology in memory clinic (no show for 10/16 appt) PT/OT evaluations for placement: SNF recommended Delirium precautions Continue B12, thiamine and vitamin D supplements states she cannot take patient at this time due to her own medical issues and home dynamics continues to be cooperative with nursing staff and physicians Acute uncomplicated cystitis *resolved History of E coli on previous admission, treated UA abnormal Completed 7 days of CTX pansensitive e coli on culture labs stable DVT prophylaxis: SQ lovenox Code status: FULL PCP: JUAN JOSE [facility]en [facility] Admission and Anticipated Discharge Date Admission Date: October 29, 2023 Subjective pt was seen laying in bed. Denied acute concerns. Review of Systems Review of Systems: All systems reviewed & are unremarkable except as noted in Subjective Physical Exam Physical Exam: General: Alert, No acute distress Neuro: No gross deficits in the bed HEENT: NC/AT CV: RRR Resp: no increased effort of breathing Extremities: No edema in lower extremities bilaterally. Results & Data Results & Data Vital Signs (Past 12 Hours) Vital Signs Temp Pulse Resp BP Pulse Ox O2 Del Method 12/06/23 07:19 36.4 C L 55 L 16 99/77 L 96 Room Air 12/06/23 07:15 Room Air (2) Dementia Dementia behavioral or psychological symptom: unspecified whether behavioral, psychotic, or mood disturbance or anxiety Dementia severity: unspecified severity Dementia type: unspecified type Qualified Code(s): F03.90 - Unspecified dementia, unspecified severity, without behavioral disturbance, psychotic disturbance, mood disturbance, and anxiety (4) Depression Depression Type: unspecified Qualified Code(s): F32.A - Depression, unspecified
[2023-12-07 06:45] LABS: Creatinine Clr Calc Pharmacy 64.4 ml/min; Est GFR (African American) 74.6 ml/min; Est GFR (Non-African American) 64.4 ml/min
--- NOTE | 2023-12-07 14:25 | Hospitalist Progress Note ---
Date of Service December 07, 2023 Assessment & Plan (1) Unable to care for self: (2) Dementia: (3) Neurocognitive disorder: (4) Depression: Plan Mr Ragland is a 63-year-old male with PMH of dementia, heavy alcohol abuse, depression with psychotic features and catatonia, polysubstance abuse, cognitive decline since 2019 presenting with family stating they can no longer care for him at home. There have been no changes to management. Course prolonged secondary to placement. Patient remains medically stable for discharge [facility] Sat12/09/23 Per previous provider with addendum: History of combative behavior and dementia, recently admitted to our service from 10/02-10/13 awaiting placement and was ultimately discharged home by request of patient's . Was seen by psychiatry during previous admission and was started on aripiprazole 5 mg in the morning (in addition to continuing aripiprazole 10 mg at bedtime, which she had previously been on), as well as starting mirtazapine 15 mg at bedtime as well as vitamin D3, B12 and thiamine supplementations. Reportedly brought to the ED by with request for placement as family unable to provide care at home. UA noted to be positive for e coli. No further concerns at this time. Planning pursuit of placement He was previously treated for the following: Progressive dementia Neurocognitive disorder Unable to care for self History of depression Office of aging involved, complex social situation History of sexual disinhibition per 04/20/2023 reports - previously on estradiol 0.0375 patch -> discussed with psych earlier regarding estrogen patch -> not clear why /when stopped but seems as unnecessary to resume at this time Case management to help with placement Psych consulted on previous admission - continue Abilify 5mg daily, 10mg HS, Mirtazapine 15 HS Evaluated by neuro on previous admission - MRI brain unremarkable, f/u Neuro in 4-6 weeks for further w/u. Recommend outpatient neuropsychiatric testing and follow up with adult neurology in memory clinic (no show for 10/16 appt) PT/OT evaluations for placement: SNF recommended Delirium precautions Continue B12, thiamine and vitamin D supplements states she cannot take patient at this time due to her own medical issues and home dynamics continues to be cooperative with nursing staff and physicians Acute uncomplicated cystitis *resolved History of E coli on previous admission, treated UA abnormal Completed 7 days of CTX pansensitive e coli on culture labs stable DVT prophylaxis: SQ lovenox Code status: FULL PCP: [facility] JO[facility]en [facility] Admission and Anticipated Discharge Date Admission Date: October 29, 2023 Subjective pt was seen laying in bed. Denied acute concerns. Review of Systems Review of Systems: All systems reviewed & are unremarkable except as noted in Subjective Physical Exam Physical Exam: General: Alert, No acute distress Neuro: No gross deficits in the bed HEENT: NC/AT CV: RRR Resp: no increased effort of breathing Extremities: No edema in lower extremities bilaterally. Results & Data Results & Data Vital Signs (Past 12 Hours) Vital Signs Temp Pulse Resp BP Pulse Ox O2 Del Method 12/07/23 07:30 36.5 C 54 L 14 107/71 94 Room Air (2) Dementia Dementia behavioral or psychological symptom: unspecified whether behavioral, psychotic, or mood disturbance or anxiety Dementia severity: unspecified severity Dementia type: unspecified type Qualified Code(s): F03.90 - Unspecified dementia, unspecified severity, without behavioral disturbance, psychotic disturbance, mood disturbance, and anxiety (4) Depression Depression Type: unspecified Qualified Code(s): F32.A - Depression, unspecified
[2023-12-08] MEDS: DOCUSATE SODIUM 100 MG CAP PO SCH (20:34)
--- NOTE | 2023-12-09 13:28 | Discharge Summary ---
Discharge Summary Date of Service December 09, 2023 Principal Dx & Hospital Course #1 = Principal Diagnosis (1) Unable to care for self: (2) Dementia: (3) Neurocognitive disorder: (4) Depression: Plan Mr Ragland is a 63-year-old male with PMH of dementia, heavy alcohol abuse, depression with psychotic features and catatonia, polysubstance abuse, cognitive decline since 2019 presenting with family stating they can no longer care for him at home. There have been no changes to management. Course prolonged secondary to placement. Patient remains medically stable for discharge [facility] on Sat12/09/23 Per previous provider with addendum: History of combative behavior and dementia, recently admitted from 10/02-10/13 awaiting placement and was ultimately discharged home by request of patient's . Was seen by psychiatry during previous admission and was started on aripiprazole 5 mg in the morning (in addition to continuing aripiprazole 10 mg at bedtime, which he had previously been on), as well as starting mirtazapine 15 mg at bedtime as well as vitamin D3, B12 and thiamine supplementations. Reportedly brought to the ED by with request for placement as family unable to provide care at home. UA noted to be positive for e coli. No further concerns at this time. Planning pursuit of placement He was previously treated for the following: Progressive dementia Neurocognitive disorder Unable to care for self History of depression Office of aging involved, complex social situation History of sexual disinhibition per 04/20/2023 reports - previously on estradiol 0.0375 patch ->previous provider discussed with psych earlier regarding estrogen patch -> not clear why /when stopped but seems unnecessary to resume at this time Case management to help with placement Psych consulted on previous admission - continue Abilify 5mg daily, 10mg qHS, Mirtazapine 15 qHS Evaluated by neuro on previous admission - MRI brain unremarkable, f/u Neuro in 4-6 weeks for further w/u. Recommend outpatient neuropsychiatric testing and follow up with adult neurology in memory clinic (no show for 10/16 appt) PT/OT evaluations for placement: SNF recommended Delirium precautions Continue B12, thiamine and vitamin D supplements states she cannot take patient at this time due to her own medical issues and home dynamics continues to be cooperative with nursing staff and physicians Acute uncomplicated cystitis *resolved History of E coli on previous admission, treated UA abnormal Completed 7 days of CTX pansensitive e coli on culture labs stable Notes For Next Care Provider Please ensure outpatient neuropsychiatric testing and follow up with adult neurology in memory clinic Medication Changes From Visit Home meds all renewed Admission HPI Per Admitting Provider This is a 63-year-old male with PMH of dementia, heavy alcohol abuse, depression with psychotic features and catatonia, polysubstance abuse, cognitive decline since 2019 presenting with family stating they can no longer care for him at home. History of combative behavior and demenia, recently admitted to our service from 10/02-10/13 awaiting placement and was ultimately discharged home by request of patient's . Was seen by psychiatry during previous admission and was started on aripiprazole 5 mg in the morning (in addition to continuing aripiprazole 10 mg at bedtime, which she had previously been on), as well as starting mirtazapine 15 mg at bedtime as well as vitamin D3, B12 and thiamine supplementations. Return to the ED with request for placement as family unable to provide care. In ED, patient is alert and oriented to self and place. Not to time or situation. Denies any CP, SOB or abdominal pain. Remainder of ROS unobtainable 2/2 cognitive decline. Admission Exam Per Admitting Provider General Appearance: WD/WN, vitals as above, NAD, sitting up in bed, pleasant, demented Head: normocephalic, atraumatic Eyes: normal inspection, PERRL, conjunctivae normal, anicteric sclerae ENT: external ear and nose normal, oropharynx normal Neck: normal visual inspection, trachea midline, no thyromegaly Respiratory: normal respiratory effort, lungs clear to auscultation, no wheeze, rales, rhonchi. No accessory muscle use Cardiovascular: regular rate, rhythm, no murmur, normal peripheral pulses, no BLE edema. Vessels: no JVD Chest: normal inspection of chest Abdomen/GI: normal bowel sounds, soft, nontender, no hepatosplenomegaly Extremities/Musculoskeletal: no cyanosis or clubbing, extremities motor strength 5/5 Neurologic: PERRL, EOMI, accommodation nl, no face palsy, no dysarthria, CN's II-XI intact bilaterally and moves all extremities Psychiatric: A+Ox person and place (baseline), flat affect Skin: no rashes, normal color, warm/dry Discharge Exam General: Alert, No acute distress Neuro: No gross deficits in the bed HEENT: NC/AT CV: RRR Resp: no increased effort of breathing Abdomen" soft, nontender Extremities: No edema in lower extremities bilaterally. Updated Medication List Medication Instructions Recorded Confirmed Type aripiprazole 10 mg tablet 10 mg PO HS 30 days #30 tabs 12/09/23 Rx aripiprazole 5 mg tablet (Abilify) 5 mg PO QAM #30 tabs 12/09/23 Rx cholecalciferol (vitamin D3) 125 125 mcg PO QAM #30 tabs 12/09/23 Rx mcg (5,000 unit) tablet cyanocobalamin (vitamin B-12) 100 100 mcg PO QAM #30 tabs 12/09/23 Rx mcg tablet (Vitamin B-12) mirtazapine 15 mg tablet 15 mg PO HS #30 tabs 12/09/23 Rx thiamine HCl (vitamin B1) 100 mg 100 mg PO QAM #30 tabs 12/09/23 Rx tablet Hospital Stay Data Consultations 10/29/23 15:21 ED Decision to Admit Stat Diagnostic Imagining Performed 10/29/23 13:57 CT head/brain wo con Stat Chest X-Ray 10/29/23 13:57 XR chest 1V portable CLINICAL HISTORY: weakness TECHNIQUE: Single frontal radiograph of the chest was obtained. Comparison: None available at the time of this dictation. FINDINGS: No lines and tubes are seen. The cardiomediastinal silhouette is normal. The lungs are clear. No evidence of pleural effusion or pneumothorax. IMPRESSION: No acute chest disease. ACT 112: Negative or not required by law. Electronically signed by: Georgi Norris M.D. 10/29/2023 2:[address] 10/29/23 13:57 CT SCAN OF THE BRAIN WITHOUT IV CONTRAST CLINICAL HISTORY: Change in mental status. Combative behavior. COMPARISON STUDY: CT of the brain dated 04/28/2023. MRI of the brain dated 10/08/2023. TECHNIQUE: Unenhanced axial CT scan of the brain is performed from the vertex to the skull base. A dose lowering technique was utilized adhering to the principles of ALARA. CT DOSE: 703.85 mGy.cm FINDINGS: Brain parenchyma: The brain parenchyma is normal in appearance. There is no hemorrhage, mass effect, or evidence of acute territorial ischemia by CT criteria. Song-white matter differentiation is preserved. No extra-axial fluid collection is seen. Ventricles, sulci, cisterns: Normal in configuration. Intracranial vasculature: The visualized intracranial vasculature at the skull base is normal in appearance. Calvarium: Unremarkable. Sinuses and mastoids: The visualized paranasal sinuses are clear. The mastoid air cells are well pneumatized. Orbits: The bony orbits are grossly intact. IMPRESSION: No acute intracranial abnormality. ACT 112: Negative or not required by law. Electronically signed by: Felice Granados M.D. 10/29/2023 2:30 PM Pending Results Patient Have Any Pending Studies at Discharge: No Discharge Instructions Given to Patient (Per Discharging Provider) Mr. Ragland, You are being discharged to a personal [facility]. Please take care of yourself. Please keep close follow up with your primary care provider after discharge. Please do not hesitate to come back to the emergency room if your symptoms worsen or return. It was a pleasure taking care of you while you were here. Total Time Total Time Spent Total Time Spent (In Minutes): 65
== END 2023-12-09 14:43 | disposition home or self-care (01) | DRG 884 ==
LOC: ED 12:46 → SUATTDRO 15:48 → EDINP 15:48 → 3E 20:29

== ENCOUNTER 2024-04-17 15:50 | Inpatient (IN) ==
[2024-04-17 16:28] LABS: Basophils # (auto) 0.01 K/uL (0.00-0.20); Basophils % (auto) 0.2 %; Eosinophils # (auto) 0.14 K/uL (0.00-0.50); Eosinophils % (auto) 3.1 %; Hematocrit (blood only) 39.1 % (42.0-52.0); Hemoglobin 13.2 g/dl (14.0-18.0); Immature Granulocytes # (auto) 0.01 K/uL (0.01-0.20); Immature Granulocytes % (auto) 0.2 %; Mean Corpuscular Hemoglobin 29.7 pg (25.0-34.0); Mean Corpuscular Hgb Conc 33.8 g/dL (32.0-36.0); Mean Corpuscular Volume 87.9 fL (80.0-100.0); Mean Platelet Volume 10.5 fL (9.4-12.4); Monocytes # (auto) 0.23 K/uL (0.11-0.59); Neutrophils # (auto) 3.09 K/uL (1.40-6.50); Neutrophils % (auto) 67.5 %; Platelet Count 151 K/uL (130-400); RDW Coefficient of Variation 13.4 % (11.5-14.5); RDW Standard Deviation 43.3 fL (36.4-46.3); Red Blood Count 4.45 M/uL (4.70-6.10); White Blood Count 4.58 K/ul (4.8-10.8)
[2024-04-17 16:37] LABS: Albumin Globulin Ratio 1.4 (0.9-2); Albumin Level 3.8 gm/dl (3.4-5.0); BUN Creatinine Ratio 20.8 (10-20); Bilirubin,Total 0.4 mg/dl (0.2-1.0); Calcium 9.2 mg/dl (8.6-10.3); Creatinine Clr Calc Pharmacy 78.2 ml/min; Globulin 2.7 gm/dl (2.5-4.0); Potassium 3.2 mmol/L (3.5-5.1); Total Protein 6.5 gm/dl (6.0-8.3)
[2024-04-17 16:39] LABS: Appearance Urine Clear (Clear); Bilirubin Urine Negative (Negative); Blood Urine Negative (Negative); Color Urine Yellow; Glucose Urine UA Negative (Negative); Ketones Urine Negative (Negative); Leukocyte Esterase Urine Negative (Negative); Nitrite Urine Negative (Negative); Protein Urine Negative (Negative); Urobilinogen Urine Negative (Negative); pH Urine 5.5 (4.5-7.5)
--- NOTE | 2024-04-17 16:39 | XRay Report ---
EXAM: Radiograph of the Chest 1 View INDICATION: Weakness. TECHNIQUE: Frontal view of the chest. COMPARISON: 10/29/2023 FINDINGS: Lungs and pleural spaces: No consolidation or pulmonary edema. No pleural effusion or pneumothorax. Heart: Shape and configuration within normal limits allowing for technique. Mediastinum: Normal contour. Bones/joints: Degenerative changes noted throughout the spine. No acute osseous abnormality seen. Soft tissues: No abnormality noted. No radiopaque foreign body noted. Vasculature: Stable ectatic aorta. Upper abdomen: No abnormality noted. IMPRESSION: No acute cardiopulmonary disease. ACT 112: Negative or not required by law. Electronically signed by Court Huynh 04-17-2024 4:38 PM
[2024-04-17 16:43] LABS: Troponin I High Sensitivity 4.3 pg/ml (0-20)
[2024-04-17 16:52] LABS: Thyroid Stimulating Hormone 1.359 uIu/ml (0.300-4.500)
[2024-04-17 17:24] LABS: Adenovirus PCR Not Detected (NotDetected); Bordetella parapertussis PCR Not Detected (NotDetected); Bordetella pertussis PCR Not Detected (NotDetected); Chlamydia pneumoniae PCR Not Detected (NotDetected); Coronavirus 229E PCR Not Detected (NotDetected); Coronavirus CoV-2 (COVID19)PCR Not Detected (NotDetected); Coronavirus HKU1 PCR Not Detected (NotDetected); Coronavirus NL63 PCR Not Detected (NotDetected); Coronavirus OC43PCR Not Detected (NotDetected); Human Metapneumovirus PCR Not Detected (NotDetected); Influenza A PCR Not Detected (NotDetected); Influenza B PCR Not Detected (NotDetected); Mycoplasma pneumoniae PCR Not Detected (NotDetected); Parainfluenza Virus 1 PCR Not Detected (NotDetected); Parainfluenza Virus 2 PCR Not Detected (NotDetected); Parainfluenza Virus 3 PCR Not Detected (NotDetected); Parainfluenza Virus 4 PCR Not Detected (NotDetected); Respiratory Syncytial VirusPCR Not Detected (NotDetected); Rhinovirus/Enterovirus PCR Not Detected (NotDetected)
--- NOTE | 2024-04-17 17:25 | CT Scan Report ---
EXAM: CT Head Without Intravenous Contrast INDICATION: History Reason For Study altered mental status. Possible fall. TECHNIQUE: Axial computed tomography images of the head/brain without intravenous contrast. Sagittal and/or coronal reformats are provided. Sagittal and coronal reformatted images were created and reviewed. This CT exam was performed using one or more of the following dose reduction techniques: automated exposure control, adjustment of the mA and/or kV according to patient size, and/or use of iterative reconstruction technique. COMPARISON: 10/29/2023 FINDINGS: Limitations: None. Brain and extra-axial spaces: No abnormality noted. No hemorrhage. No significant white matter disease. No edema. No ventriculomegaly. Bones/joints: No acute changes. Soft tissues: No significant abnormality noted. Vasculature: No acute abnormality noted. Sinuses: There is trace chronic mucosal thickening in the frontal and ethmoid sinuses. No fluid. Mastoid air cells: No mastoid effusion. Orbits: No significant abnormality noted. IMPRESSION: No acute abnormality noted. ACT 112: Negative or not required by law. Electronically signed by Court Huynh 04-17-2024 5:24 PM
--- NOTE | 2024-04-17 18:07 | Emergency Department Note ---
Impression & Plan Unable to care for self, Neurocognitive disorder, Dementia ED Provider Note NAME: FIORDALIZA NAZARIO AGE: 64 SEX: M : 1960 ARRIVES VIA: Ambulance INFORMANT: Patient, ED PROVIDER(S): Cristopher Daly MD CHIEF COMPLAINT: Aggressive, altered HPI: This is a 64-year-old male history of dementia presenting for altered mental status. Patient was reportedly called for altered mental status. EMS arrived patient was not oriented or able to refuse care. His did have concerns of UTI as he is more altered, aggressive at home. He was given 2 mg of IM Versed patient was unwilling to come to the emergency department. He was rapidly breathing as well as per EMS. Patient is getting worse that he has been less tachypneic. ROS: See above HPI for pertinent positives & negatives. A total of 10 systems reviewed and were otherwise negative. PAST MEDICAL HISTORY: See Below PAST SURGICAL HISTORY: See Below FAMILY HISTORY: See Below SOCIAL HISTORY: See Below HOME MEDICATIONS: See Below ALLERGIES: See Below VITALS: See Below PHYSICAL EXAMINATION: General: resting comfortably in no acute distress Head: Normocephalic and atraumatic Eyes: Normal inspection, extraocular muscles intact Ear, nose, throat: Normal external exam Neck: Normal range of motion Respiratory: lungs clear to auscultation bilaterally Cardiovascular: Regular rate/rhythm, no murmur GI: soft, nontender, no guarding or rebound Extremities: nontender, moves all extremities Neuro: Awake but not alert, moves all extremities Skin: Warm, dry, and intact MEDICAL DECISION MAKING: This is a 64-year-old male presenting for altered mental status. At this time patient is agreeable, mildly sedated. Answers yes or no questioning this but does not provide much history as to what happened today. -Will do CT imaging of the head, chest x-ray, basic blood work and urinalysis to help elucidate for symptoms of both mental status -Bloodwork is reviewed showing no significant leukocytosis, anemia, electrolyte or creatinine abnormality. Very slight hypokalemia noted. -Urinalysis currently negative -CT imaging of the head reveals no acute intracranial process -At this time patient is not oriented, there is no answer when I attempt to call home. Does not there is no safe discharge plan. Will admit for further placement. Differential diagnosis: Intracranial hemorrhage, dementia, UTI, ACS, dehydration Independent History obtained from: EMS Diagnostics interpreted by me: ECG: ECG independently interpreted by me with normal sinus rhythm, rate of 63, normal axis, normal MS, normal QRS, normal QTc, no ST segment elevations consistent with STEMI criteria Cardiac Monitoring: An order was placed for continuous cardiac monitoring. The monitor shows a rate of 66 with sinus rhythm. Past Med/Surg History Problem List (Updated 04/17/24 @ 19:22 by Cristopher Daly MD) Major neurocognitive disorder due to another medical condition, with other behavioral or psychological disturbance Acute UTI (Acute) Unable to care for self (Acute) COVID (Acute) Delirium Acute UTI (Acute) Dementia (Acute) Neurocognitive disorder (Acute) Psychosis Depression (Acute) H/O knee surgery Arthritis (Chronic) Family History Other Family history non-contributory Social History Smoking Status: Unknown if ever smoked Tobacco Type: Cigarettes Hx Alcohol Use: No Hx Substance Use: No Preferred Language: Norwegian Communication Ability: Effective [employer]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 Beliefs That Will Affect Care: None marital status: Current Living Situation: Spouse current occupational status: employed Feels Safe at Home: Yes Assistive Devices: None Allergies Allergies Allergy/AdvReac Type Severity Reaction Status Date / Time No Known Allergies Allergy NONE Verified 04/17/24 16:48 Home Meds Previous Rx's Medication Instructions Recorded aripiprazole 10 mg tablet 10 mg PO HS 30 days #30 tabs 12/09/23 aripiprazole 5 mg tablet (Abilify) 5 mg PO QAM #30 tabs 12/09/23 cholecalciferol (vitamin D3) 125 125 mcg PO QAM #30 tabs 12/09/23 mcg (5,000 unit) tablet cyanocobalamin (vitamin B-12) 100 100 mcg PO QAM #30 tabs 12/09/23 mcg tablet (Vitamin B-12) mirtazapine 15 mg tablet 15 mg PO HS #30 tabs 12/09/23 thiamine HCl (vitamin B1) 100 mg 100 mg PO QAM #30 tabs 12/09/23 tablet Results & Data (ED) Vital Signs Vital Signs - 24 hr 04/17/24 15:54 04/17/24 16:02 Temperature 36.7 C Temperature Source Oral Pulse Rate 65 66 Respiratory Rate 18 Respiratory Effort / Characteristics Non-Labored Spontaneous Respiratory Depth Normal Respiratory Pattern Regular Pulse Oximetry 97 Oxygen Delivery Method Room Air Sepsis Recent Fever Within 48 Hours No Sepsis New/Unexplained Change in Mental Status No Sepsis Action Taken by Nursing No Action Required Laboratory Data 04/17/24 16:04 04/17/24 16:04 Lab Results 04/17/24 04/17/24 04/17/24 Range/Units 16:04 16:11 16:15 WBC 4.58 L (4.8-10.8) K/ul RBC 4.45 L (4.70-6.10) M/uL Hgb 13.2 L (14.0-18.0) g/dl Hct 39.1 L (42.0-52.0) % MCV 87.9 (80.0-100.0) fL MCH 29.7 (25.0-34.0) pg MCHC 33.8 (32.0-36.0) g/dL RDW Std Deviation 43.3 (36.4-46.3) fL RDW Coeff of Bhavesh 13.4 (11.5-14.5) % Plt Count 151 (130-400) K/uL MPV 10.5 (9.4-12.4) fL Immature Gran % (Auto) 0.2 % Neut % (Auto) 67.5 % Lymph % (Auto) 24.0 % Karnes % (Auto) 5.0 % Eos % (Auto) 3.1 % Baso % (Auto) 0.2 % Neut # (Auto) 3.09 (1.40-6.50) K/uL Lymph # (Auto) 1.10 L (1.20-3.40) K/uL Karnes # (Auto) 0.23 (0.11-0.59) K/uL Eos # (Auto) 0.14 (0.00-0.50) K/uL Baso # (Auto) 0.01 (0.00-0.20) K/uL Immature Gran # (Auto) 0.01 (0.01-0.20) K/uL Sodium 142 (136-145) mmol/L Potassium 3.2 L (3.5-5.1) mmol/L Chloride 103 (98-107) mmol/L Carbon Dioxide 33 H (21-32) mmol/L Anion Gap 6 (3-11) BUN 20 (6-23) mg/dl Creatinine 0.96 (0.6-1.4) mg/dl Est Cr Clr Drug Dosing 78.2 ml/min eGFR 87.17 BUN/Creatinine Ratio 20.8 H (10-20) Glucose 139 H (70-99(Fasting)) mg/dl POC Glucose 123 H (70-99) mg/dl Calcium 9.2 (8.6-10.3) mg/dl Total Bilirubin 0.4 (0.2-1.0) mg/dl AST 18 (13-39) U/L ALT 10 (7-52) U/L Alkaline Phosphatase 31 L (34-104) U/L Troponin I High Sens 4.3 (0-20) pg/ml Total Protein 6.5 (6.0-8.3) gm/dl Albumin 3.8 (3.4-5.0) gm/dl Globulin 2.7 (2.5-4.0) gm/dl Albumin/Globulin Ratio 1.4 (0.9-2) TSH 1.359 (0.300-4.500) uIu/ml Urine Color Yellow Urine Appearance Clear (Clear) Urine pH 5.5 (4.5-7.5) Ur Specific [place] 1.030 (1.000-1.030) Urine Protein Negative (Negative) Urine Glucose (UA) Negative (Negative) Urine Ketones Negative (Negative) Urine Blood Negative (Negative) Urine Nitrite Negative (Negative) Urine Bilirubin Negative (Negative) Urine Urobilinogen Negative (Negative) Ur Leukocyte Esterase Negative (Negative) Adenovirus (PCR) (NotDetected) B. pertussis DNA (PCR) (NotDetected) B.parapertussis DNA PCR (NotDetected) C. pneumoniae DNA (PCR) (NotDetected) Coronavirus OC43 (PCR) (NotDetected) Coronavirus HKU1 (PCR) (NotDetected) Coronavirus 229E (PCR) (NotDetected) SARS-CoV-2 (PCR) (NotDetected) Coronavirus NL63 (PCR) (NotDetected) Human Metapneumovir PCR (NotDetected) Influenza Type A (PCR) (NotDetected) Influenza Type B (PCR) (NotDetected) M. pneumoniae (PCR) (NotDetected) Parainfluenza 1 (PCR) (NotDetected) Parainfluenza 2 (PCR) (NotDetected) Parainfluenza 3 (PCR) (NotDetected) Parainfluenza 4 (PCR) (NotDetected) RSV (PCR) (NotDetected) Entero/Rhino (PCR) (NotDetected) 04/17/24 Range/Units 16:21 WBC (4.8-10.8) K/ul RBC (4.70-6.10) M/uL Hgb (14.0-18.0) g/dl Hct (42.0-52.0) % MCV (80.0-100.0) fL MCH (25.0-34.0) pg MCHC (32.0-36.0) g/dL RDW Std Deviation (36.4-46.3) fL RDW Coeff of Bhavesh (11.5-14.5) % Plt Count (130-400) K/uL MPV (9.4-12.4) fL Immature Gran % (Auto) % Neut % (Auto) % Lymph % (Auto) % Karnes % (Auto) % Eos % (Auto) % Baso % (Auto) % Neut # (Auto) (1.40-6.50) K/uL Lymph # (Auto) (1.20-3.40) K/uL Karnes # (Auto) (0.11-0.59) K/uL Eos # (Auto) (0.00-0.50) K/uL Baso # (Auto) (0.00-0.20) K/uL Immature Gran # (Auto) (0.01-0.20) K/uL Sodium (136-145) mmol/L Potassium (3.5-5.1) mmol/L Chloride (98-107) mmol/L Carbon Dioxide (21-32) mmol/L Anion Gap (3-11) BUN (6-23) mg/dl Creatinine (0.6-1.4) mg/dl Est Cr Clr Drug Dosing ml/min eGFR BUN/Creatinine Ratio (10-20) Glucose (70-99(Fasting)) mg/dl POC Glucose (70-99) mg/dl Calcium (8.6-10.3) mg/dl Total Bilirubin (0.2-1.0) mg/dl AST (13-39) U/L ALT (7-52) U/L Alkaline Phosphatase (34-104) U/L Troponin I High Sens (0-20) pg/ml Total Protein (6.0-8.3) gm/dl Albumin (3.4-5.0) gm/dl Globulin (2.5-4.0) gm/dl Albumin/Globulin Ratio (0.9-2) TSH (0.300-4.500) uIu/ml Urine Color Urine Appearance (Clear) Urine pH (4.5-7.5) Ur Specific [place] (1.000-1.030) Urine Protein (Negative) Urine Glucose (UA) (Negative) Urine Ketones (Negative) Urine Blood (Negative) Urine Nitrite (Negative) Urine Bilirubin (Negative) Urine Urobilinogen (Negative) Ur Leukocyte Esterase (Negative) Adenovirus (PCR) Not Detected (NotDetected) B. pertussis DNA (PCR) Not Detected (NotDetected) B.parapertussis DNA PCR Not Detected (NotDetected) C. pneumoniae DNA (PCR) Not Detected (NotDetected) Coronavirus OC43 (PCR) Not Detected (NotDetected) Coronavirus HKU1 (PCR) Not Detected (NotDetected) Coronavirus 229E (PCR) Not Detected (NotDetected) SARS-CoV-2 (PCR) Not Detected (NotDetected) Coronavirus NL63 (PCR) Not Detected (NotDetected) Human Metapneumovir PCR Not Detected (NotDetected) Influenza Type A (PCR) Not Detected (NotDetected) Influenza Type B (PCR) Not Detected (NotDetected) M. pneumoniae (PCR) Not Detected (NotDetected) Parainfluenza 1 (PCR) Not Detected (NotDetected) Parainfluenza 2 (PCR) Not Detected (NotDetected) Parainfluenza 3 (PCR) Not Detected (NotDetected) Parainfluenza 4 (PCR) Not Detected (NotDetected) RSV (PCR) Not Detected (NotDetected) Entero/Rhino (PCR) Not Detected (NotDetected) Imaging Data Radiologist's Impression: Chest X-Ray 04/17/24 16:05 EXAM: Radiograph of the Chest 1 View INDICATION: Weakness. TECHNIQUE: Frontal view of the chest. COMPARISON: 10/29/2023 FINDINGS: Lungs and pleural spaces: No consolidation or pulmonary edema. No pleural effusion or pneumothorax. Heart: Shape and configuration within normal limits allowing for technique. Mediastinum: Normal contour. Bones/joints: Degenerative changes noted throughout the spine. No acute osseous abnormality seen. Soft tissues: No abnormality noted. No radiopaque foreign body noted. Vasculature: Stable ectatic aorta. Upper abdomen: No abnormality noted. IMPRESSION: No acute cardiopulmonary disease. ACT 112: Negative or not required by law. Electronically signed by Court Huynh 04-17-2024 4:[address] 04/17/24 16:43 EXAM: CT Head Without Intravenous Contrast INDICATION: History Reason For Study altered mental status. Possible fall. TECHNIQUE: Axial computed tomography images of the head/brain without intravenous contrast. Sagittal and/or coronal reformats are provided. Sagittal and coronal reformatted images were created and reviewed. This CT exam was performed using one or more of the following dose reduction techniques: automated exposure control, adjustment of the mA and/or kV according to patient size, and/or use of iterative reconstruction technique. COMPARISON: 10/29/2023 FINDINGS: Limitations: None. Brain and extra-axial spaces: No abnormality noted. No hemorrhage. No significant white matter disease. No edema. No ventriculomegaly. Bones/joints: No acute changes. Soft tissues: No significant abnormality noted. Vasculature: No acute abnormality noted. Sinuses: There is trace chronic mucosal thickening in the frontal and ethmoid sinuses. No fluid. Mastoid air cells: No mastoid effusion. Orbits: No significant abnormality noted. IMPRESSION: No acute abnormality noted. ACT 112: Negative or not required by law. Electronically signed by Court Huynh 04-17-2024 5:24 PM Discharge Plan Visit Data Chief Complaint: Altered Mental Status Stated Complaint: [facility] ED Provider: Cristopher Daly Discharge Problem: Unable to care for self, Neurocognitive disorder, Dementia Forms Stand Alone Forms: [employer] Prescriptions Prescriptions: No Action aripiprazole 10 mg tablet 10 mg PO HS 30 Days Qty: 30 0RF mirtazapine 15 mg Tablet 15 mg PO HS Qty: 30 0RF aripiprazole [Abilify] 5 mg Tablet 5 mg PO QAM Qty: 30 0RF cholecalciferol (vitamin D3) 125 mcg (5,000 unit) Tablet 125 mcg PO QAM Qty: 30 0RF cyanocobalamin (vitamin B-12) [Vitamin B-12] 100 mcg Tablet 100 mcg PO QAM Qty: 30 0RF thiamine HCl (vitamin B1) 100 mg Tablet 100 mg PO QAM Qty: 30 0RF Referrals Referrals: Reid Bolden PA-C [Primary Care Provider] -
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
[2024-04-17] MEDS ORDERED: MAGNESIUM HYDROXIDE SUSP 30 ML UDC PO PRN (21:22)
[2024-04-17] MEDS ORDERED: POLYETHYLENE (MIRALAX) 17 GM PACK PO PRN (21:22)
[2024-04-17] MEDS ORDERED: ALUMINUM/MAGNESIUM SUSP 30 ML UDC PO PRN (21:22)
[2024-04-17] MEDS ORDERED: OLANZapine 10 MG/2.1 ML SDV IM PRN (21:22)
[2024-04-17] MEDS ORDERED: ACETAMINOPHEN 325 MG TAB PO PRN (21:22)
[2024-04-17] MEDS: POTASSIUM CHLORIDE CRTAB 20 MEQ TABCR PO STA (21:30)
[2024-04-17] MEDS: MELATONIN 3 MG TAB PO SCH (21:30)
[2024-04-17] MEDS: MIRTAZAPINE TAB 15 MG TAB PO SCH (21:30)
[2024-04-17] MEDS: ARIPiprazole 10 MG TAB PO SCH (21:30)
[2024-04-17] MEDS: POTASSIUM CHLORIDE CRTAB 20 MEQ TABCR PO ONE (22:28)
[2024-04-18 06:57] LABS: Calcium 9.3 mg/dl (8.6-10.3); Creatinine Clr Calc Pharmacy 85.3 ml/min; Potassium 3.8 mmol/L (3.5-5.1)
--- NOTE | 2024-04-18 08:49 | Electrocardiogram Report ---
Test Reason : Blood Pressure : */* mmHG Vent. Rate : 63 BPM Atrial Rate : 63 BPM P-R Int : 134 ms QRS Dur : 100 ms QT Int : 410 ms P-R-T Axes : 46 -12 17 degrees QTcB Int : 419 ms Poor data quality, interpretation may be adversely affected Normal sinus rhythm Normal ECG When compared with ECG of 29-Oct-2023 13:05, No significant change was found Confirmed by Jaswinder Damico ([id number]) on 04/18/2024 8:48:49 AM Referred By: REFERRED SELF Confirmed By: Jaswinder Damico
--- NOTE | 2024-04-18 10:21 | Hospitalist Progress Note ---
Date of Service April 18, 2024 Assessment & Plan (1) Major neurocognitive disorder due to another medical condition, with other behavioral or psychological disturbance: Plan: Psych is on consult, continue with previous regimen of Abilify 5 mg every morning and 10 mg every night, continue with Remeron 15 mg at bedtime. (2) Delirium: Plan: Clinically stable at this point. (3) Unable to care for self: Plan: Defer to case management for proper placement. Plan It does not seem that patient is having any acute issue, this is a presentation like previous admissions, unfortunately he does not have many options as there were not many facilities were willing to take him. Will defer to case management. Admission and Anticipated Discharge Date Admission Date: April 17, 2024 Subjective Patient was seen and briefly examined, he was comfortable with no agitation or restlessness. Physical Exam Physical Exam: VITALS: Reviewed. WEIGHT/BMI reviewed. GEN: Healthy appearing, well-developed, NAD. CV: RRR, no m/r/g. LUNGS: CTAB, no w/r/c. ABD: Soft, NT/ND, NBS, no masses or organomegaly. Results & Data Results & Data Vital Signs (Past 12 Hours) Vital Signs Temp Pulse Resp BP BP Pulse Ox O2 Del Method 04/18/24 08:13 36.4 C L 46 L 16 82/51 L 90/57 L 98 Room Air Laboratory Results Laboratory Results - last 24 hr 04/17/24 04/17/24 04/17/24 16:04 16:11 16:15 WBC 4.58 L RBC 4.45 L Hgb 13.2 L Hct 39.1 L MCV 87.9 MCH 29.7 MCHC 33.8 RDW Std Deviation 43.3 RDW Coeff of Bhavesh 13.4 Plt Count 151 MPV 10.5 Immature Gran % (Auto) 0.2 Neut % (Auto) 67.5 Lymph % (Auto) 24.0 [place] % (Auto) 5.0 Eos % (Auto) 3.1 Baso % (Auto) 0.2 Neut # (Auto) 3.09 Lymph # (Auto) 1.10 L [place] # (Auto) 0.23 Eos # (Auto) 0.14 Baso # (Auto) 0.01 Immature Gran # (Auto) 0.01 Sodium 142 Potassium 3.2 L Chloride 103 Carbon Dioxide 33 H Anion Gap 6 BUN 20 Creatinine 0.96 Est Cr Clr Drug Dosing 78.2 eGFR 87.17 BUN/Creatinine Ratio 20.8 H Glucose 139 H POC Glucose 123 H Calcium 9.2 Total Bilirubin 0.4 AST 18 ALT 10 Alkaline Phosphatase 31 L Troponin I High Sens 4.3 Total Protein 6.5 Albumin 3.8 Globulin 2.7 Albumin/Globulin Ratio 1.4 TSH 1.359 Urine Color Yellow Urine Appearance Clear Urine pH 5.5 Ur Specific [place] 1.030 Urine Protein Negative Urine Glucose (UA) Negative Urine Ketones Negative Urine Blood Negative Urine Nitrite Negative Urine Bilirubin Negative Urine Urobilinogen Negative Ur Leukocyte Esterase Negative Adenovirus (PCR) B. pertussis DNA (PCR) B.parapertussis DNA PCR C. pneumoniae DNA (PCR) Coronavirus OC43 (PCR) Coronavirus HKU1 (PCR) Coronavirus 229E (PCR) SARS-CoV-2 (PCR) Coronavirus NL63 (PCR) Human Metapneumovir PCR Influenza Type A (PCR) Influenza Type B (PCR) M. pneumoniae (PCR) Parainfluenza 1 (PCR) Parainfluenza 2 (PCR) Parainfluenza 3 (PCR) Parainfluenza 4 (PCR) RSV (PCR) Entero/Rhino (PCR) 04/17/24 04/18/24 16:21 05:55 WBC RBC Hgb Hct MCV MCH MCHC RDW Std Deviation RDW Coeff of Bhavesh Plt Count MPV Immature Gran % (Auto) Neut % (Auto) Lymph % (Auto) [place] % (Auto) Eos % (Auto) Baso % (Auto) Neut # (Auto) Lymph # (Auto) [place] # (Auto) Eos # (Auto) Baso # (Auto) Immature Gran # (Auto) Sodium 143 Potassium 3.8 Chloride 104 Carbon Dioxide 34 H Anion Gap 5 BUN 15 Creatinine 0.88 Est Cr Clr Drug Dosing 85.3 eGFR 94.84 BUN/Creatinine Ratio 17.0 Glucose 88 POC Glucose Calcium 9.3 Total Bilirubin AST ALT Alkaline Phosphatase Troponin I High Sens Total Protein Albumin Globulin Albumin/Globulin Ratio TSH Urine Color Urine Appearance Urine pH Ur Specific [place] Urine Protein Urine Glucose (UA) Urine Ketones Urine Blood Urine Nitrite Urine Bilirubin Urine Urobilinogen Ur Leukocyte Esterase Adenovirus (PCR) Not Detected B. pertussis DNA (PCR) Not Detected B.parapertussis DNA PCR Not Detected C. pneumoniae DNA (PCR) Not Detected Coronavirus OC43 (PCR) Not Detected Coronavirus HKU1 (PCR) Not Detected Coronavirus 229E (PCR) Not Detected SARS-CoV-2 (PCR) Not Detected Coronavirus NL63 (PCR) Not Detected Human Metapneumovir PCR Not Detected Influenza Type A (PCR) Not Detected Influenza Type B (PCR) Not Detected M. pneumoniae (PCR) Not Detected Parainfluenza 1 (PCR) Not Detected Parainfluenza 2 (PCR) Not Detected Parainfluenza 3 (PCR) Not Detected Parainfluenza 4 (PCR) Not Detected RSV (PCR) Not Detected Entero/Rhino (PCR) Not Detected Diagnostic Findings Chest X-Ray 04/17/24 16:05 EXAM: Radiograph of the Chest 1 View INDICATION: Weakness. TECHNIQUE: Frontal view of the chest. COMPARISON: 10/29/2023 FINDINGS: Lungs and pleural spaces: No consolidation or pulmonary edema. No pleural effusion or pneumothorax. Heart: Shape and configuration within normal limits allowing for technique. Mediastinum: Normal contour. Bones/joints: Degenerative changes noted throughout the spine. No acute osseous abnormality seen. Soft tissues: No abnormality noted. No radiopaque foreign body noted. Vasculature: Stable ectatic aorta. Upper abdomen: No abnormality noted. IMPRESSION: No acute cardiopulmonary disease. ACT 112: Negative or not required by law. Electronically signed by Court Huynh 04-17-2024 4:[address] 04/17/24 16:43 EXAM: CT Head Without Intravenous Contrast INDICATION: History Reason For Study altered mental status. Possible fall. TECHNIQUE: Axial computed tomography images of the head/brain without intravenous contrast. Sagittal and/or coronal reformats are provided. Sagittal and coronal reformatted images were created and reviewed. This CT exam was performed using one or more of the following dose reduction techniques: automated exposure control, adjustment of the mA and/or kV according to patient size, and/or use of iterative reconstruction technique. COMPARISON: 10/29/2023 FINDINGS: Limitations: None. Brain and extra-axial spaces: No abnormality noted. No hemorrhage. No significant white matter disease. No edema. No ventriculomegaly. Bones/joints: No acute changes. Soft tissues: No significant abnormality noted. Vasculature: No acute abnormality noted. Sinuses: There is trace chronic mucosal thickening in the frontal and ethmoid sinuses. No fluid. Mastoid air cells: No mastoid effusion. Orbits: No significant abnormality noted. IMPRESSION: No acute abnormality noted. ACT 112: Negative or not required by law. Electronically signed by Court Huynh 04-17-2024 5:24 PM Medications Administered Current Inpatient Medications Acetaminophen (Acetaminophen 325 Mg Tab) 650 mg PO Q4H PRN PRN Reason: pain/fever Stop: 05/17/24 21:21 Al Hydrox/Mg Hydrox/Simethicone (Aluminum/Magnesium Susp 30 Ml Udc) 30 ml PO Q6H PRN PRN Reason: Dyspepsia Stop: 05/17/24 21:21 Aripiprazole (Aripiprazole 5 Mg Tab) 5 mg PO QAM [facility] Stop: 05/18/24 08:59 Aripiprazole (Aripiprazole 10 Mg Tab) 10 mg PO [facility] Stop: 05/17/24 21:21 Last Admin: 04/17/24 21:30 Dose: 10 mg Cyanocobalamin (Cyanocobalamin (B-12) 100 Mcg Tablet) [facility] Stop: 05/18/24 08:59 Magnesium Hydroxide (Magnesium Hydroxide Susp 30 Ml Udc) 30 ml PO Q6H PRN PRN Reason: Constipation Stop: 05/17/24 21:21 Melatonin (Melatonin 3 Mg Tab) 6 mg PO [facility] Stop: 05/17/24 21:21 Last Admin: 04/17/24 21:30 Dose: 6 mg Mirtazapine (Mirtazapine Tab 15 Mg Tab) 15 mg PO HS [facility] Stop: 05/17/24 21:21 Last Admin: 04/17/24 21:30 Dose: 15 mg Olanzapine (Olanzapine 10 Mg/2.1 Ml Sdv) 5 mg IM Q4H PRN PRN Reason: Agitation/aggressive Stop: 05/17/24 21:21 Polyethylene Glycol (Polyethylene (Miralax) 17 Gm Pack) 17 gm PO DAILY PRN PRN Reason: Constipation Stop: 05/17/24 21:21 Thiamine HCl (Thiamine Hcl 100 Mg Tab) 100 mg PO QAM [facility] Stop: 05/18/24 08:59 Vitamin D (Cholecalciferol 125 Mcg (5,000 Units) Tab) 125 mcg PO QAM [facility] Stop: 05/18/24 08:59
[2024-04-18] MEDS: CHOLECALCIFEROL 125 MCG (5,000 UNITS) TAB PO SCH (11:59)
[2024-04-18] MEDS: ARIPiprazole 5 MG TAB PO SCH (11:59)
[2024-04-18] MEDS: THIAMINE HCL 100 MG TAB PO SCH (11:59)
[2024-04-18] MEDS: CYANOCOBALAMIN (B-12) 100 MCG TABLET PO SCH (11:59)
--- NOTE | 2024-04-18 14:48 | Psychiatric Consultation ---
Date of Consultation April 18, 2024 Impression / Recommendations Impression Diagnostically consistent with dementia with behavioral disturbance with possible component of delirium vs waxing and waning confusion and behavioral challenges. Goal in dementia is to avoid medication management of behaviors if possible by maximizing non-pharmacologic strategies for behavioral management. However, given history of significant periods of agitation and aggression and given worsening agitation/aggression agree with ongoing use of antipsychotic as risk/benefit profile continues to favors treatment. Note all antipsychotic medications carry black box warning for increased risk of all-cause mortality in setting of dementia. A: Given sedation would avoid further titration of abilify at this time but could be considered in the future if needed. BP is low so use of clonidine could be considered but non-ideal at this time. Given history of indecent exposure/hypersexual statements/disinhibition would consider off-label use of Depakote, data is mixed for use in dementia but given lack of FDA approved treatments and escalated behaviors this seems reasonable to consider. Baseline labs of CBC with diff, LFTs, electrolytes, reviewed. Overall, I spent a total of 45 minutes with this case including review of chart records, review of labwork, review of EKG QTc, direct evaluation of the patient at bedside, counseling the patient, discussion of the patient with the Nurse and with the hospitalist provider, discussion with the psychiatric liason during clinical rounds and documentation in the electronic health record. (1) Major neurocognitive disorder due to another medical condition, with other behavioral or psychological disturbance: (2) Unable to care for self: Plan -Start Depakote ER 250mg HS (recheck CBC with diff and LFTS in 1-2 weeks and again at 1 month) -Continue abilify 5mg qAM and 10mg HS (can consolidate dose if increased difficulty with adherence emerges). If sedation lessens could increase to 20mg daily (10mg BID or 5mg qAM and 15mg HS or 20mg qAM or HS). -Agree with mirtazapine 15mg HS -Continue medical workup to rule out and treat any underlying causes contributing to potential delirium, avoid or limit use of deliriogenic medications (benzodiazepines, opioids, anticholinergics) -Continue with delirium prevention measures: raising blinds during the day, closing at night, frequent re-orientation, contact with family/friends, explaining procedures/nursing care measures prior to physical contact, correct any hearing and visual impairments -For behavioral emergency: olanzapine 2.5 mg IM or can increase to 5mg IM if needed (DO NOT exceed 20mg per 24 hours, check EKG if IM dose required, NEVER co-administer with IM or IV benzodiazepines). If ineffective can trial haldol 2.5mg po/IM (DO not exceed 20mg per 24 hours) and ativan 1mg po/IM. -Psych liason will attempt to get further collateral from his and recent personal senior care to clarify any possible non-pharmacological interventions or other symptom targets that may reduce likelihood for future episodes of agitation Psych History Identifying Data 64 yo man with a history of known neurocognitive disorder and dementia possibly alcohol induced admitted medically due to family's inability to care for him at home. Psychiatry consulted for medication recommendations for dementia with behavioral disturbance. Chief Complaint "mmhhm". History of Present Illness Samuel has a history of dementia and was brought via EMS to hospital after his felt unable to care for him at home over the past week. Per admission H&P he was removed from personal senior care due to behavioral events and briefly incarcerated before charges were dropped. Per chart review Office of Aging has been involved in the past with the family with limited success and difficulties coordinating with his in the past due to her limited responsiveness to phone calls which has made placement more challenging. Today he is lying in bed, minimally responsive to questions. Has been on abilify for dementia with behavioral disturbance and on mirtazapine at HS. Allergies Allergy/AdvReac Type Severity Reaction Status Date / Time No Known Allergies Allergy NONE Verified 04/17/24 16:48 Home Medications Medication Instructions Recorded Confirmed Type aripiprazole 10 mg tablet 10 mg PO HS 30 days #30 tabs 12/09/23 04/17/24 Rx aripiprazole 5 mg tablet (Abilify) 5 mg PO QAM #30 tabs 12/09/23 04/17/24 Rx cholecalciferol (vitamin D3) 125 125 mcg PO QAM #30 tabs 12/09/23 04/17/24 Rx mcg (5,000 unit) tablet cyanocobalamin (vitamin B-12) 100 100 mcg PO QAM #30 tabs 12/09/23 04/17/24 Rx mcg tablet (Vitamin B-12) mirtazapine 15 mg tablet 15 mg PO HS #30 tabs 12/09/23 04/17/24 Rx thiamine HCl (vitamin B1) 100 mg 100 mg PO QAM #30 tabs 12/09/23 04/17/24 Rx tablet Patient History Family History Other Family history non-contributory Social History Smoking Status: Former smoker Tobacco Type: Cigarettes Cigarettes Per Day: 10; Second Hand Exposure: No; Do You Dip or Chew Tobacco: No; Tobacco Cessation Education Requested by Patient: No Hx Alcohol Use: No Hx Substance Use: No Preferred Language: Indonesian Communication Ability: Effective Nurse Staff Industrial Required: No Beliefs That Will Affect Care: None marital status: Current Living Situation: Spouse current occupational status: employed Other Information That Helps Us Care for You: No Feels Safe at Home: Yes Safety Concerns: Feels Safe At This Time Assistive Devices: None Physical Exam Vital Signs (Past 24 Hours): Last Vital Signs Temp 36.4 C L 04/18/24 08:13 Pulse 46 L 04/18/24 08:13 Resp 16 04/18/24 08:13 BP 82/51 L 04/18/24 08:13 Pulse Ox 98 04/18/24 08:13 O2 Del Method Room Air 04/18/24 08:13 Results & Data (PSY) Medications Administered A[facility]iprazole (A[facility]iprazole 5 Mg Tab) [address] [facility] [place] Stop: 05/18/24 08:59 Last Admin: 04/18/24 11:59 Dose: 5 mg Documented By: LARA Aripiprazole (Aripiprazole 10 Mg Tab) 10 mg PO [facility] Stop: 05/17/24 21:21 Last Admin: 04/17/24 21:30 Dose: 10 mg Documented By: LUKE Cyanocobalamin (Cyanocobalamin (B-12) 100 Mcg Tablet) 100 mcg PO QA [facility] Stop: 05/18/24 08:59 Last Admin: 04/18/24 11:59 Dose: 100 mcg Documented By: LARA Melatonin (Melatonin 3 Mg Tab) 6 mg PO [facility] Stop: 05/17/24 21:21 Last Admin: 04/17/24 21:30 Dose: 6 mg Documented By: LUKE Mirtazapine (Mirtazapine Tab 15 Mg Tab) 15 mg PO [facility] Stop: 05/17/24 21:21 Last Admin: 04/17/24 21:30 Dose: 15 mg Documented By: LUKE Thiamine HCl (Thiamine Hcl 100 Mg Tab) 100 mg PO [facility] Stop: 05/18/24 08:59 Last Admin: 04/18/24 11:59 Dose: 100 mg Documented By: LARA Vitamin D (Cholecalciferol 125 Mcg (5,000 Units) Tab) 125 mcg PO [facility] Stop: 05/18/24 08:59 Last Admin: 04/18/24 11:59 Dose: 125 mcg Documented By: LARA Coding Level of Care Code 57245 IN/OBS CONSULT LVL 3,45M Diagnoses Major neurocognitive disorder due to another medical condition, with other behavioral or psychological disturbance F02.818 Unable to care for self Z78.9
--- NOTE | 2024-04-19 10:25 | Hospitalist Progress Note ---
Date of Service April 19, 2024 Assessment & Plan (1) Major neurocognitive disorder due to another medical condition, with other behavioral or psychological disturbance: Plan: Patient was seen by psychiatry, additional Depakote 250 mg extended release at night was ordered to be added to his regimen. Continue with the rest of the medication including Abilify and Remeron. (2) Delirium: Plan: Clinically stable at this point. I do not find any medical reason for this. Patient is at baseline. (3) Unable to care for self: Plan At this time patient seems to be medically stable, case management to discuss with his spouse and to search venues if there is any accepting facility. In the past facilities have been reluctant to take the patient because of his impulsiveness and occasional disruptive behavior. Admission and Anticipated Discharge Date Admission Date: April 17, 2024 Subjective Patient was seen and and examined, he denies having any issues overnight, we spoke about his breakfast which he did not like and so I communicated with nursing to change his order. Physical Exam Physical Exam: VITALS: Reviewed. WEIGHT/BMI reviewed. GEN: Healthy appearing, well-developed, NAD. CV: RRR, no m/r/g. LUNGS: CTAB, no w/r/c. ABD: Soft, NT/ND, NBS, no masses or organomegaly. Results & Data Results & Data Vital Signs (Past 12 Hours) Vital Signs Temp Pulse Resp BP Pulse Ox O2 Del Method 04/19/24 09:48 Room Air 04/19/24 07:00 36.7 C 50 L 20 108/73 97 Room Air Medications Administered Current Inpatient Medications Acetaminophen (Acetaminophen 325 Mg Tab) 650 mg PO Q4H PRN PRN Reason: pain/fever Stop: 05/17/24 21:21 Al Hydrox/Mg Hydrox/Simethicone (Aluminum/Magnesium Susp 30 Ml Udc) 30 ml PO Q6H PRN PRN Reason: Dyspepsia Stop: 05/17/24 21:21 Aripiprazole (Aripiprazole 5 Mg Tab) 5 mg PO QAM [facility] Stop: 05/18/24 08:59 Last Admin: 04/19/24 07:56 Dose: 5 mg Aripiprazole (Aripiprazole 10 Mg Tab) 10 mg PO HS [facility] Stop: 05/17/24 21:21 Last Admin: 04/18/24 21:05 Dose: 10 mg Cyanocobalamin (Cyanocobalamin (B-12) 100 Mcg Tablet) 100 mcg PO [facility] Stop: 05/18/24 08:59 Last Admin: 04/19/24 07:56 Dose: 100 mcg Divalproex Sodium (Divalproex Extended Release 250 Mg Tabcr) 250 mg PO [facility] Stop: 05/19/24 20:59 Magnesium Hydroxide (Magnesium Hydroxide Susp 30 Ml Udc) 30 ml PO Q6H PRN PRN Reason: Constipation Stop: 05/17/24 21:21 Melatonin (Melatonin 3 Mg Tab) 6 mg PO [facility] Stop: 05/17/24 21:21 Last Admin: 04/18/24 21:07 Dose: 6 mg Mirtazapine (Mirtazapine Tab 15 Mg Tab) 15 mg PO [facility] Stop: 05/17/24 21:21 Last Admin: 04/18/24 21:05 Dose: 15 mg Olanzapine (Olanzapine 10 Mg/2.1 Ml Sdv) 5 mg IM Q4H PRN PRN Reason: Agitation/aggressive Stop: 05/17/24 21:21 Polyethylene Glycol (Polyethylene (Miralax) 17 Gm Pack) 17 gm PO DAILY PRN PRN Reason: Constipation Stop: 05/17/24 21:21 Thiamine HCl (Thiamine Hcl 100 Mg Tab) 100 mg PO [facility] Stop: 05/18/24 08:59 Last Admin: 04/19/24 07:56 Dose: 100 mg Vitamin D (Cholecalciferol 125 Mcg (5,000 Units) Tab) 125 mcg PO [facility] Stop: 05/18/24 08:59 Last Admin: 04/19/24 07:56 Dose: 125 mcg
[2024-04-19] MEDS: DIVALPROEX EXTENDED RELEASE 250 MG TABCR PO SCH (19:32)
--- OUTSIDE RECORDS SUMMARY | 2024-04-19 21:30 | External Medical Summary | Summary of Care ---
Author Name Unknown Organization [facility] Address [address] [place] [address] Phone [phone] Care Team Providers Care Pack Changer Name Role Phone Reid Bolden PA-C Primary Care Provider + Encounter Details Date Type Department Care Team (Late st Contact Info) Description 12/12/2023 Population Health External Data Unspecified Department Allergies No known active allergiesdocumented as of this encounter (statuses as of 12/12/2023) Medications Medication Sig Dispensed Refills Start Date End Date Status Incontinence Brief Large Use as needed, change once soiled 18 Each 11/20/2021 Active Donepezil HCl 10 MG Oral Tablet (Aricept) Take 1 Tablet by mouth daily with breakfast. Start this dose after finishing 5 mg tablets. 90 Tablet 3 11/09/2022 Active documented as of this encounter (statuses as of 12/12/2023) Active Problems No known active problems documented as of this encounter (statuses as of 12/12/2023) Social History Tobacco Use Types Packs/Day Years [...] on file documented as of this encounter Plan of Treatment Health Maintenance [...] AAA Screening 2023 Influenza Vaccine (FLU shot) (#1) 2024 03/23/2016, 02/25/2013 Lipid Panel 06/05/2027 06/05/2022 HPV (Gardasil) Vaccine Aged Out No lo nger eligible based on patient's age to complete this topic Hepatitis B Vaccine Aged Out No longe r eligible based on patient's age to complete this topic MENINGOCOCCAL (MENACTRA/MENVEO) Aged Out No longer eligible b ased on patient's age to complete this topic documented as of this encounter Medical Devices Not on filedocumented as of this encounter Care Teams Pack Changer Relationship Specialty Start Date End Date Reid Bolden PA-C [address] [place] [id number] PCP - General Physician [employer] Field Technician 08/17/20 documented as of this encounter
--- OUTSIDE RECORDS SUMMARY | 2024-04-19 21:30 | External Medical Summary | Summary of Care ---
Author Name Unknown Organization [facility] Address [address] [place] [address] Phone [phone] Care Team Providers Care Agricultural Sales Representative Name Role Phone Reid Bolden PA-C Primary Care Provider + Reason for Referral * Evaluate & Treat - Unlimited Visits (Within 10 days (routine)) - Pending Review Specialty Diagnoses / Procedures Referred By Zandra keller Referred To Contact Psychiatry / Psychology Diagnoses Mixed dementia (HCC) Jeannine Woods CRNP [address] [place] [address] Referral ID Status Reason Start Date Expiration Date Visits Requested Visits Authorized [id number] Pending Review Specialty Services Required 09/27/[phone] Question Answer Referral Priority Within 10 days (routine) Where should this appointment be scheduled? [facility] Is this referral for medication management? No What condition is this patient being seen for? Dementia/Neurodegenerative Does the patient have SEVERE cognitive impairment on bedside screeners? 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 Please call patient's Agatha at [phone] to schedule appointment. Reason for Visit * Reason Onset Date Comments TRIAGE 09/27/2023 Encounter Details Date Type Department Care Team (Late st Contact Info) Description 09/27/2023 Telephone Neurology, [place] [address] [place] [address] Services, Scheduling [address] [place] [address] TRIAGE Allergies No known active allergiesdocumented as of this encounter (statuses as of 11/04/2023) Medications Medication Sig Dispensed Refills Start Date End Date Status Incontinence Brief Large Use as needed, change once soiled 18 Each 11/20/2021 Active Donepezil HCl 10 MG Oral Tablet (Aricept) Take 1 Tablet by mouth daily with breakfast. Start this dose after finishing 5 mg tablets. 90 Tablet 3 11/09/2022 Active documented as of this encounter (statuses as of 11/04/2023) Active Problems No known active problems documented as of this encounter (statuses as of 11/04/2023) Social History Tobacco Use Types Packs/Day Years [...] of last name and date. Spoke with Agtaha. She advised that Samuel had to be taken by ambulance to [facility] because he became so aggressive towards her the failure analysis engineer were called, Samuel sung at the failure analysis engineer and the EMT'S had to givehim a [...] GENEVA Lao wanted her to meet with Dividing Machine Operator Claudia Atkins and that they tried calling from her office tohave them scheduled but the other phone number did not work, she reports it was changed. Phone number updated, patients warm transferred to scheduling. * Telephone Encounter - Aliya Martinez OSA - 10/29/2023 12:58 PM EDT UTC; called 's cell phone, phone out of service, no myG to send a message. JEVON Martínez * Telephone Encounter - Jorge A Christensen DO - 10/29/2023 12:10 PM EDT Pt was referred to Claudia baer high school social studies teacher on 09/26 but I don't see it [...] 9:26 AM EDT Pt Agatha calling in [facility] is continuing to have problems with pt. He is refusing to let her help him get a bath and has terrible body odor, and keeps on urinating and defacating and having hard time cleaning him up and swipes at her. She is looking to speak again to her block and case maker, or nurse for advice as she doesn't know what to do already. Please call Agatha. [phone] * Telephone Encounter - Geri Morris OSA [...] told her that we were making our high school social studies teacher aware of the situation. I reiterated that [...] place a referral for Claudia Atkins, our high school social studies teacher and will forward this message to her [...] current condition. She reports 3 hospitalizations at [facility]. One from late Jan to Feb, [...] this from happening. Agatha reports calling the [facility] Office of Aging numerous times. Their [...] message to the pool, update current TE [facility] Neurology Pool- All messages go through the [facility] Neuro [place]- [id number] Neurology Pool Numbers- [place] and [facility] patients - follow normal process Ops req [facility] Neurology ([place])- [id number] Ops req [place] Neurology ([place]- [facility] and [facility] clinics Only)- [id number] Neurosurgery Pool Numbers- [place] patients- follow normal process Ops req Neurosurgery [facility] ([place])- [id number] Ops req Neurosurgery [facility] ([place] Only) [id number] Requested Information from caller: Who [...] phone number for nurse to call back: [phone] If forms need to be faxed- Please [...] Primary documented in this encounter Care Teams Agricultural Sales Representative Relationship Specialty Start Date End Date Reid Bolden PA-C 1 [facility] [address] [address] PCP - General Physician Consulting Systems Engineer 08/17/20 documented as of this encounter
--- NOTE | 2024-04-20 10:57 | Hospitalist Progress Note ---
Date of Service April 20, 2024 Assessment & Plan (1) Major neurocognitive disorder due to another medical condition, with other behavioral or psychological disturbance: Plan: Patient was seen by psychiatry, additional Depakote 250 mg extended release at night was ordered to be added to his regimen. Continue with the rest of the medication including Abilify and Remeron. (2) Delirium: Plan: Clinically stable at this point. I do not find any medical reason for this. Patient is at baseline. (3) Unable to care for self: Plan This is a 64 yr old M who has a significant PMH of progressive dementia and neurocognitive disorder who presented to ED due to worsening Confusion. Pt had prolonged hospital stay in October and was discharged to [facility]. Pt since was discharged home with ; however is again overwhelmed with overall care. Pt is unable to care for self at home and his neurocognitive status is noted to wax and wane making it difficult to care for. He was seen by psych who recommended initiation of Depakote. Will need to repeat CBC and LFTS in 1 week and again at 1 month. Admitting labs reviewed. No source of infection. Also continue Abilify and mirtazapine. He is medically stable for discharge when a facility is able to accept patient. FULL CODE DVT ppx: None, pt ambulatory Dispo: pt medically stable for discharge I spent a total of 30 minutes reviewing notes, outpatient records, labs, medication, coordinating, documenting and providing care for this patient excluding time spent in the performance of separately billed services. Admission and Anticipated Discharge Date Admission Date: April 17, 2024 Supervising Physician Co-Signing Physician Notes I have seen and discussed the case with the collaborating advanced practitioner. I agree with the above PN. I have reviewed and confirmed the patients medical history, the findings on physical examination, and the patients diagnosis and treatment plan with Aura INGRAM and agree with the information documented. Discussed with case management I spent a total of 15 minutes coordinating, documenting, and providing care for this patient excluding time spent in the performance of separately billed s ervices. All of the aforementioned completed outside of collaborating with the assigned advanced practitioner for a full treatment plan. I have reviewed the advanced practitioner's documentation, and I agree with, and take responsibility for the plan of care Subjective Pt offers no acute concerns. He denies f/c/s, chest pain, sob, n/v/d. Awaiting placement. Review of Systems Review of Systems: All systems reviewed & are unremarkable except as noted in HPI & below Physical Exam Physical Exam: Gen: WD/WN, NAD, A&O x3 HEENT: Normocephalic, atraumatic, conjunctivae moist, sclerae anicteric, mucous membranes moist. Lung: Clear to Auscultation bilaterally, no wheezes/rales/rhonchi Heart: Regular rate, regular rhythm, no murmurs, rubs, or gallops Abdomen: Soft, NT, ND +BS x 4 Extremities: No edema Skin: Warm, no rash, negative turgor. Results & Data Results & Data Vital Signs (Past 12 Hours) Vital Signs Temp Pulse Pulse Resp BP Pulse Ox O2 Del Method 04/20/24 08:34 36.4 C L 52 L 56 L 19 102/68 97 Room Air 04/20/24 07:08 36.5 C 54 L 16 99/67 L 95 Room Air Medications Administered Current Inpatient Medications Acetaminophen (Acetaminophen 325 Mg Tab) 650 mg PO Q4H PRN PRN Reason: pain/fever Stop: 05/17/24 21:21 Al Hydrox/Mg Hydrox/Simethicone (Aluminum/Magnesium Susp 30 Ml Udc) 30 ml PO Q6H PRN PRN Reason: Dyspepsia Stop: 05/17/24 21:21 Aripiprazole (A[facility]iprazole 5 Mg Tab) [facility] Stop: 05/18/24 08:59 Last Admin: 04/20/24 07:31 Dose: 5 mg Aripiprazole (Aripiprazole 10 Mg Tab) 10 mg PO [facility] Stop: 05/17/24 21:21 Last Admin: 04/19/24 19:32 Dose: 10 mg Cyanocobalamin (Cyanocobalamin (B-12) 100 Mcg Tablet) 100 mcg [facility] Stop: 05/18/24 08:59 Last Admin: 04/20/24 07:32 Dose: 100 mcg Divalproex Sodium (Divalproex Extended Release 250 Mg Tabcr) 250 mg PO [facility] Stop: 05/19/24 20:59 Last Admin: 04/19/24 19:32 Dose: 250 mg Magnesium Hydroxide (Magnesium Hydroxide Susp 30 Ml Udc) 30 ml PO Q6H PRN PRN Reason: Constipation Stop: 05/17/24 21:21 Melatonin (Melatonin 3 Mg Tab) 6 mg PO [facility] Stop: 05/17/24 21:21 Last Admin: 04/19/24 19:32 Dose: 6 mg Mirtazapine (Mirtazapine Tab 15 Mg Tab) 15 mg PO [facility] Stop: 05/17/24 21:21 Last Admin: 04/19/24 19:32 Dose: 15 mg Olanzapine (Olanzapine 10 Mg/2.1 Ml Sdv) 5 mg IM Q4H PRN PRN Reason: Agitation/aggressive Stop: 05/17/24 21:21 Polyethylene Glycol (Polyethylene (Miralax) 17 Gm Pack) 17 gm PO DAILY PRN PRN Reason: Constipation Stop: 05/17/24 21:21 Thiamine HCl (Thiamine Hcl 100 Mg Tab) 100 mg PO [facility] Stop: 05/18/24 08:59 Last Admin: 04/20/24 07:32 Dose: 100 mg Vitamin D (Cholecalciferol 125 Mcg (5,000 Units) Tab) 125 mcg PO [facility] Stop: 05/18/24 08:59 Last Admin: 04/20/24 07:31 Dose: 125 mcg
--- NOTE | 2024-04-21 13:08 | Hospitalist Progress Note ---
Date of Service April 21, 2024 Assessment & Plan (1) Major neurocognitive disorder due to another medical condition, with other behavioral or psychological disturbance: (2) Delirium: (3) Unable to care for self: Plan This is a 64 yr old M who has a significant PMH of progressive dementia and neurocognitive disorder who presented to ED due to worsening Confusion. Pt had prolonged hospital stay in October and was discharged to [facility]. Pt since was discharged home with ; however is again overwhelmed with overall care. Pt is unable to care for self at home and his neurocognitive status is noted to wax and wane making it difficult to care for. He was seen by psych who recommended initiation of Depakote. Will need to repeat CBC and LFTS in 1 week and again at 1 month. Admitting labs reviewed. No source of infection. Also continue Abilify and mirtazapine. He is medically stable for discharge when a facility is able to accept patient. FULL CODE DVT ppx: None, pt ambulatory Dispo: pt medically stable for discharge I spent a total of 25 minutes reviewing notes, outpatient records, labs, medication, coordinating, documenting and providing care for this patient excluding time spent in the performance of separately billed services. Admission and Anticipated Discharge Date Admission Date: April 17, 2024 Supervising Physician Co-Signing Physician Notes I have seen and discussed the case with the collaborating advanced practitioner. I agree with the above PN. I have reviewed and confirmed the patients medical history, the findings on physical examination, and the patients diagnosis and treatment plan with Aura INGRAM and agree with the information documented. Discussed with case management I spent a total of 15 minutes coordinating, documenting, and providing care for this patient excluding time spent in the performance of separately billed services. All of the aforementioned completed outside of collaborating with the assigned advanced practitioner for a full treatment plan. I have reviewed the advanced practitioner's documentation, and I agree with, and take responsibility for the plan of care Subjective Pt offers no acute concerns. He denies f/c/s, chest pain, sob, n/v/d. Awaiting placement. Review of Systems Review of Systems: All systems reviewed & are unremarkable except as noted in HPI & below Physical Exam Physical Exam: Gen: WD/WN, NAD, A&O x2 , he is tired and answers questions but doesn't want to open his eyes HEENT: Normocephalic, atraumatic, conjunctivae moist, sclerae anicteric, mucous membranes moist dry Lung: Clear to Auscultation bilaterally, no wheezes/rales/rhonchi Heart: Regular rate, regular rhythm, no murmurs, rubs, or gallops Abdomen: Soft, NT, ND +BS x 4 Extremities: No edema Skin: Warm, no rash, negative turgor. Results & Data Results & Data Vital Signs (Past 12 Hours) Vital Signs Temp Pulse Resp BP Pulse Ox O2 Del Method 04/21/24 10:13 Room Air 04/21/24 07:23 36.6 C 60 18 98/63 L 96 Room Air
--- NOTE | 2024-04-22 07:57 | Hospitalist Progress Note ---
Date of Service April 22, 2024 Assessment & Plan (1) Major neurocognitive disorder due to another medical condition, with other behavioral or psychological disturbance: (2) Delirium: (3) Unable to care for self: Plan This is a 64 yr old M who has a significant PMH of progressive dementia and neurocognitive disorder who presented to ED due to worsening Confusion. Pt had prolonged hospital stay in October and was discharged to [facility]. is again overwhelmed with overall care. Pt is unable to care for self at home and his neurocognitive status is noted to wax and wane making it difficult to care for. He was seen by psych who recommended initiation of Depakote which was started on 04/19. Will need to repeat CBC and LFTS in 1 week and again at 1 month. Continue Abilify and mirtazapine. Hemodynamically stable Code Status: FULL CODE DVT ppx: None, pt ambulatory Dispo: pt medically stable for discharge when bed available at facility Office of Aging involved I spent a total of 36 minutes reviewing notes, outpatient records, labs, medication, coordinating, documenting and providing care for this patient excluding time spent in the performance of separately billed services. Admission and Anticipated Discharge Date Admission Date: April 17, 2024 Supervising Physician Co-Signing Physician Notes delayed entry date of service noted above Attending Addendum: Case reviewed with the advanced practitioner. I have personally performed a history and physical examination on the patient. I have reviewed the advanced practitioner's documentation on the date of service referenced in note, and I agree with, and take responsibility for the plan of care. please refer to her notes for full details Bradford Mccloud MD Subjective Patient sleeping in his bed, laying on his left side when I entered the room. Easily arousable to verbal stimuli. Pt denies SPRAGUE, dizziness, SOB, chest pain, N/V/D. Limited conversation, patient just wanted to sleep. Awaiting placement. No acute concerns. Review of Systems Review of Systems: Neuro: (-) Falls, trauma, slurred speech HEENT: (-) SPRAGUE, dizziness, dysphagia, visual or auditory changes CV: (-) CP, palpitations, swelling Resp: (-) SOB GI: (-) appetite changes, N/V/D, bowel changes : (-) urinary changes Skin: (-) rashes Psych: (-) anxiety, depression Physical Exam Physical Exam: Neuro: AAOx4, PERRLA, no aphagia, memory changes, CNII-XII grossly intact HEENT: head normocephalic, moist mucus membranes CV: S1/S2, (-) M/G/R, (-) edema, cap refill < 3 seconds Resp: Lungs CTA in all tovar. On RA GI: Abdomen S/NT/ND, Ax4 bowel sounds, (-) CVA tenderness Musculoskeletal: 5/5 B/L UE strength, 5/5 B/L LE strength. No gait disturbance Skin: (-) rashes , (-) erythema. Psych: flat mood Results & Data Results & Data Vital Signs (Past 12 Hours) Vital Signs Temp Pulse Resp BP Pulse Ox O2 Del Method 04/22/24 07:26 36.6 C 60 17 108/73 96 Room Air 04/22/24 07:05 Room Air 04/22/24 00:00 Room Air 04/21/24 21:49 36.6 C 67 12 103/69 95 Room Air
--- NOTE | 2024-04-23 08:19 | Hospitalist Progress Note ---
Date of Service April 23, 2024 Assessment & Plan (1) Major neurocognitive disorder due to another medical condition, with other behavioral or psychological disturbance: (2) Delirium: (3) Unable to care for self: Plan This is a 64 yr old M who has a significant PMH of progressive dementia and neurocognitive disorder who presented to ED due to worsening Confusion. Pt had prolonged hospital stay in October and was discharged to [facility]. Confusion has improved and patient is appropriate. Pt is unable to care for self at home and his neurocognitive status is noted to wax and wane making it difficult to care for. He was seen by psych who recommended initiation of Depakote which was started on 04/19. He is tolerating the Depakote well; No behavioral disturbance CMP repeated today with no abnormalities; no transaminitis Continue Abilify and mirtazapine. Hemodynamically stable Code Status: FULL CODE DVT ppx: None, pt ambulatory Dispo: pt medically stable for discharge ; discussed at length with patients , Agatha, on the phone at [phone] who states that she will be ready to take him home on Wednesday 04/25. Office of Aging involved I spent a total of 48 minutes reviewing notes, outpatient records, labs, medication, coordinating, documenting and providing care for this patient excluding time spent in the performance of separately billed services. Admission and Anticipated Discharge Date Admission Date: April 17, 2024 Supervising Physician Co-Signing Physician Notes Attending Addendum: Case reviewed with the advanced practitioner. I have personally performed a history and physical examination on the patient. I have reviewed the advanced practitioner's documentation on the date of service referenced in note, and I agree with, and take responsibility for the plan of care. please refer to her notes for full details patient seen and examined, records reviewed by myself as well Bradford Mccloud MD Subjective Patient sleeping in his bed, laying on his left side when I entered the room. Easily arousable to verbal stimuli and able to have conversation. Pt denies SPRAGUE, dizziness, SOB, chest pain, N/V/D. No acute concerns. Seems to be tolerating new medication well. Spoke with pt Agatha at [phone] Review of Systems Review of Systems: Neuro: (-) Falls, trauma, slurred speech HEENT: (-) SPRAGUE, dizziness, dysphagia, visual or auditory changes CV: (-) CP, palpitations, swelling Resp: (-) SOB GI: (-) appetite changes, N/V/D, bowel changes : (-) urinary changes Skin: (-) rashes Psych: (-) anxiety, depression Physical Exam Physical Exam: Neuro: AAOx4, PERRLA, no aphagia, memory changes, CNII-XII grossly intact HEENT: head normocephalic, moist mucus membranes CV: S1/S2, (-) M/G/R, (-) edema, cap refill < 3 seconds Resp: Lungs CTA in all tovar. On RA GI: Abdomen S/NT/ND, Ax4 bowel sounds, (-) CVA tenderness Musculoskeletal: 5/5 B/L UE strength, 5/5 B/L LE strength. No gait disturbance Skin: (-) rashes , (-) erythema. Psych: flat mood Results & Data Results & Data Vital Signs (Past 12 Hours) Vital Signs Temp Pulse Resp BP Pulse Ox O2 Del Method 04/23/24 07:56 36.5 C 79 17 126/85 97 Room Air Laboratory Results [facility] 04/23/24 12:13 Sodium 140 Potassium 4.1 Chloride 106 Carbon Dioxide 30 BUN 18 Creatinine 1.16 Glucose 121 H Calcium 9.2 Liver Function 04/23/24 Range/Units 12:13 Total Bilirubin 0.3 (0.2-1.0) mg/dl AST 12 L (13-39) U/L ALT 9 (7-52) U/L Alkaline Phosphatase 38 (34-104) U/L Albumin 4.0 (3.4-5.0) gm/dl
[2024-04-23 12:48] LABS: Albumin Globulin Ratio 1.5 (0.9-2); BUN Creatinine Ratio 15.5 (10-20); Bilirubin,Total 0.3 mg/dl (0.2-1.0); Calcium 9.2 mg/dl (8.6-10.3); Creatinine Clr Calc Pharmacy 64.7 ml/min; Globulin 2.6 gm/dl (2.5-4.0); Potassium 4.1 mmol/L (3.5-5.1); Total Protein 6.6 gm/dl (6.0-8.3)
[2024-04-24 15:08] VITALS: RESP 16
--- NOTE | 2024-04-24 17:28 | Hospitalist Progress Note ---
Date of Service April 24, 2024 Assessment & Plan (1) Major neurocognitive disorder due to another medical condition, with other behavioral or psychological disturbance: (2) Delirium: (3) Unable to care for self: Plan Per previous hospitalist notes with addendum: This is a 64 yr old M who has a significant PMH of progressive dementia and neurocognitive disorder who presented to ED due to worsening Confusion. Pt had prolonged hospital stay in October and was discharged to [facility]. Confusion has improved and patient is appropriate. Pt is unable to care for self at home and his neurocognitive status is noted to wax and wane making it difficult to care for. He was seen by psych who recommended initiation of Depakote which was started on 04/19. He is tolerating the Depakote well; No behavioral disturbance CMP repeated today with no abnormalities; no transaminitis Continue Abilify and mirtazapine. Hemodynamically stable 04/24 Continues to tolerate Depakote well Calm and cooperative Plan for discharge tomorrow Code Status: FULL CODE DVT ppx: None, pt ambulatory Dispo: pt medically stable for discharge ; discussed at length with patients , Agatha, on the phone at [phone] who states that she will be ready to take him home on Wednesday 04/25. Office of Aging involved I spent a total of 48 minutes reviewing notes, outpatient records, labs, medication, coordinating, documenting and providing care for this patient excluding time spent in the performance of separately billed services. Admission and Anticipated Discharge Date Admission Date: April 17, 2024 Subjective Seen resting in bed, watching TV, comfortable Calm and cooperative Answering questions appropriately States he feels fine overall Denies headache, dizziness, chest pain, shortness of breath abdominal pain No other new symptoms Review of Systems Review of Systems: all noted and negative except for above Physical Exam Physical Exam: General- oriented x 1-2, not in distress, speaks in sentences with no effort or accessory muscle use Eyes- anicteric Neck- no JVD Lungs- clear breath sounds bilaterally, no rales/wheezes Heart- normal rate, regular rhythm; no murmurs Abdomen- normal bowel sounds, nondistended, soft, nontender Extremities- no pretibial edema, no calf tenderness Neuro- alert, oriented x 1-2, no gross focal neurologic deficits Skin- warm & dry Results & Data Results & Data Vital Signs (Past 12 Hours) Vital Signs Temp Pulse Resp BP Pulse Ox O2 Del Method 04/24/24 15:01 36.7 C 64 16 100/59 L 97 Room Air 04/24/24 08:00 Room Air 04/24/24 07:10 36.3 C L 49 L 18 108/69 95 Room Air all noted and reviewed including below
[2024-04-24 19:49] VITALS: TEMP 97.9; O2SAT 95
[2024-04-25 08:02] VITALS: BP 97/62; PULSE 59
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
== END 2024-04-25 14:31 | disposition home or self-care (01) | DRG 884 ==
LOC: ED 15:50 → 3E 18:53 → SUATTDRO 18:53 → 3E 21:02

== ENCOUNTER 2024-05-05 02:41 | Inpatient (IN) ==
[2024-05-05 03:30] LABS: Basophils # (auto) 0.03 K/uL (0.00-0.20); Basophils % (auto) 0.5 %; Eosinophils # (auto) 0.14 K/uL (0.00-0.50); Eosinophils % (auto) 2.2 %; Hematocrit (blood only) 38.8 % (42.0-52.0); Hemoglobin 12.7 g/dl (14.0-18.0); Immature Granulocytes # (auto) 0.17 K/uL (0.01-0.20); Immature Granulocytes % (auto) 2.7 %; Lymphocytes # (auto) 1.25 K/uL (1.20-3.40); Mean Corpuscular Hemoglobin 29.1 pg (25.0-34.0); Mean Corpuscular Hgb Conc 32.7 g/dL (32.0-36.0); Mean Platelet Volume 9.6 fL (9.4-12.4); Monocytes # (auto) 0.45 K/uL (0.11-0.59); Monocytes % (auto) 7.2 %; Neutrophils % (auto) 67.4 %; Platelet Count 185 K/uL (130-400); RDW Coefficient of Variation 13.5 % (11.5-14.5); Red Blood Count 4.36 M/uL (4.70-6.10); White Blood Count 6.24 K/ul (4.8-10.8)
[2024-05-05 03:44] LABS: Albumin Globulin Ratio 1.6 (0.9-2); Albumin Level 4.1 gm/dl (3.4-5.0); BUN Creatinine Ratio 8.5 (10-20); Bilirubin,Total 0.3 mg/dl (0.2-1.0); Creatinine Clr Calc Pharmacy 68.6 ml/min; Globulin 2.5 gm/dl (2.5-4.0); Magnesium 1.9 mg/dl (1.7-2.4); Potassium 4.2 mmol/L (3.5-5.1); Total Protein 6.6 gm/dl (6.0-8.3)
[2024-05-05 03:50] LABS: Troponin I High Sensitivity 3.7 pg/ml (0-20)
--- NOTE | 2024-05-05 03:55 | Emergency Department Note ---
Impression & Plan Neurocognitive disorder, Unable to care for self, Fecal incontinence ED Provider Note CHIEF COMPLAINT: Altered mental status, agitation HISTORY OF PRESENT ILLNESS: This 64-year-old male patient past medical history of dementia, UTI, psychosis, fecal incontinence presents to the emergency department after his called EMS. Patient was noted to be agitated and unwilling to clean up after fecal incontinence. patient was apparently combative and somewhat violent towards his . The BLS crew called stating that the patient was not able to be redirected. They felt the patient required sedation. ALS crew was called to the scene with police officers. The patient was given 2 mg of IM Ativan. Approximately 15 minutes later a second dose of 2 mg IM Ativan was administered. I received a third call from EMS stating that the patient had yet to be calm enough to bring him to the hospital. Patient was then given 0.5 mg/kg of IM ketamine. paramedics were advised to monitor the patient's airway closely as he has not received significant amounts of sedation that may catch up with him. Patient has not had any recent falls or injuries by report. He has not had a fever. He was recently diagnosed with a UTI approximately 4 days ago and prescribed Bactrim. REVIEW OF SYSTEMS: A review of systems was performed with positives and pertinent negatives listed in the history of present illness. 10 systems were reviewed and are otherwise negative. ALLERGIES: see below MEDICATIONS: see below PMH: see below SOCIAL HISTORY: see below DDx: Dehydration, medication effect, medication omission, dementia/agitation, psychosis, UTI,intracranial hemorrhage, intracranial mass among others. PHYSICAL EXAM: Vital signs reviewed. General: chronically ill-appearing 64-year-old male, in no significant distress. HEENT: No scleral icterus, PERRLA, neck supple. dry mucous membranes. Cardiovascular: Regular rate and rhythm, no extra sounds. Pulmonary: Clear to auscultation bilaterally, normal work of breathing. Abdomen: Soft, nontender, nondistended, positive bowel sounds. Musculoskeletal: Atraumatic, no peripheral edema. Neurologic: Patient awake , alert and states he is at the hospital. He is unable to say year and date. : Normal external male genitals. Skin: Warm, dry, no rash . Mildly excoriated perirectal region, no open lesions or drainage identified. EMERGENCY DEPARTMENT COURSE/MDM: This patient was evaluated and appeared to be in no significant distress. IV access was obtained and laboratory work was drawn. The patient was calm and cooperative during my examination with the Ativan and ketamine combination. He was awake and maintaining his airway however not able to answer questions appropriately. According to old records, it seems there is some difficulty Getting Chest x-ray to my interpretation reveals bibasilar atelectasis, no evidence of focal lung consolidation or failure. Urinalysis is clear. CT imaging of the head was performed and is negative for acute intracranial pathology. EKG: to my interpretation reveals normal sinus rhythm at [address] segments, QTc of 458. DISPOSITION: Admission I have personally spent greater than 32 minutes of critical care time in the direct management of this patient. This includes bedside care, interpretation of diagnostic studies, and testing, discussion with consultants, patient, and family members, medication administration via EMS for agitation. And other required patient management activities. This 3232 minutes is in excess of all separately billable procedures. Past Med/Surg History Problem List (Updated 05/05/24 @ 06:56 by Sada Lopez MD) Agitation Fecal incontinence (Acute) Acute UTI (Acute) Major neurocognitive disorder due to another medical condition, with other behavioral or psychological disturbance Acute UTI (Acute) Unable to care for self (Acute) COVID (Acute) Delirium Acute UTI (Acute) Dementia (Acute) Neurocognitive disorder (Acute) Psychosis Depression (Acute) H/O knee surgery Arthritis (Chronic) Family History Other Family history non-contributory Social History Smoking Status: Unknown if ever smoked Tobacco Type: Cigarettes Cigarettes Per Day: 10; Second Hand Exposure: No; Do You Dip or Chew Tobacco: No; Hx Alcohol Use: No Hx Substance Use: No Preferred Language: Czech Communication Ability: Effective Summer School Coordinator Required: No Beliefs That Will Affect Care: None marital status: Current Living Situation: Spouse current occupational status: employed Feels Safe at Home: Yes Safety Concerns: Feels Safe At This Time Assistive Devices: None Allergies Allergies Allergy/AdvReac Type Severity Reaction Status Date / Time No Known Allergies Allergy NONE Verified 04/17/24 16:48 Home Meds Home Medications Medication Instructions Recorded Confirmed aripiprazole 10 mg tablet 10 mg PO HS 05/05/24 05/05/24 aripiprazole 5 mg tablet 5 mg PO DAILY 05/05/24 05/05/24 cyanocobalamin (vitamin B-12) 100 100 mcg PO DAILY 05/05/24 05/05/24 mcg tablet divalproex 250 mg tablet,extended 250 mg PO HS 05/05/24 05/05/24 release 24 hr mirtazapine 15 mg tablet 15 mg PO HS 05/05/24 05/05/24 sulfamethoxazole 800 1 tab PO BID 05/05/24 05/05/24 mg-trimethoprim 160 mg tablet thiamine HCl (vitamin B1) 100 mg 100 mg PO DAILY 05/05/24 05/05/24 tablet Results & Data (ED) Vital Signs Vital Signs - 24 hr 05/05/24 02:49 05/05/24 02:49 05/05/24 02:49 Temperature 36.8 C Temperature Source Oral Pulse Rate 78 Pulse Rate [Apical] 75 Pulse Rhythm Regular Pulse Rhythm [Apical] Regular Pulse Strength [Apical] Normal Respiratory Rate 18 18 Respiratory Effort / Characteristics Non-Labored Spontaneous Respiratory Depth Normal Respiratory Pattern Regular Blood Pressure Blood Pressure [Right Arm] 107/71 Blood Pressure Mean Blood Pressure Mean [Right Arm] 83 Blood Pressure Position Blood Pressure Position [Right Arm] Semi-fowlers Pulse Oximetry 97 99 98 Oxygen Delivery Method Room Air Room Air Room Air Sepsis Recent Fever Within 48 Hours Sepsis New/Unexplained Change in Mental Status Sepsis Action Taken by Nursing 05/05/24 02:57 05/05/24 03:03 05/05/24 04:00 Temperature 36.9 C Temperature Source Oral Pulse Rate 79 78 Pulse Rate [Apical] 77 Pulse Rhythm Pulse Rhythm [Apical] Regular Pulse Strength [Apical] Normal Respiratory Rate 18 18 Respiratory Effort / Characteristics Non-Labored Spontaneous Respiratory Depth Normal Respiratory Pattern Regular Blood Pressure 110/83 Blood Pressure [Right Arm] 96/81 L Blood Pressure Mean 92 Blood Pressure Mean [Right Arm] 86 Blood Pressure Position Lying Blood Pressure Position [Right Arm] Semi-fowlers Pulse Oximetry 94 94 Oxygen Delivery Method Room Air Room Air Sepsis Recent Fever Within 48 Hours No Sepsis New/Unexplained Change in Mental Status N/A Sepsis Action Taken by Nursing No Action Required Home Medications Current Medication List: was personally reviewed by me Laboratory Data Attestation: I reviewed the patient's lab results. 05/05/24 03:10 05/05/24 03:10 Lab Results 05/05/24 05/05/24 Range/Units 03:10 04:58 WBC 6.24 (4.8-10.8) K/ul RBC 4.36 L (4.70-6.10) M/uL Hgb 12.7 L (14.0-18.0) g/dl Hct 38.8 L (42.0-52.0) % MCV 89.0 (80.0-100.0) fL MCH 29.1 (25.0-34.0) pg MCHC 32.7 (32.0-36.0) g/dL RDW Std Deviation 44.0 (36.4-46.3) fL RDW Coeff of Bhavesh 13.5 (11.5-14.5) % Plt Count 185 (130-400) K/uL MPV 9.6 (9.4-12.4) fL Immature Gran % (Auto) 2.7 % Neut % (Auto) 67.4 % Lymph % (Auto) 20.0 % Calhoun % (Auto) 7.2 % Eos % (Auto) 2.2 % Baso % (Auto) 0.5 % Neut # (Auto) 4.20 (1.40-6.50) K/uL Lymph # (Auto) 1.25 (1.20-3.40) K/uL Calhoun # (Auto) 0.45 (0.11-0.59) K/uL Eos # (Auto) 0.14 (0.00-0.50) K/uL Baso # (Auto) 0.03 (0.00-0.20) K/uL Immature Gran # (Auto) 0.17 (0.01-0.20) K/uL Sodium 139 (136-145) mmol/L Potassium 4.2 (3.5-5.1) mmol/L Chloride 101 (98-107) mmol/L Carbon Dioxide 32 (21-32) mmol/L Anion Gap 6 (3-11) BUN 9 (6-23) mg/dl Creatinine 1.06 (0.6-1.4) mg/dl Est Cr Clr Drug Dosing 68.6 ml/min eGFR 77.40 BUN/Creatinine Ratio 8.5 L (10-20) Glucose 100 H (70-99(Fasting)) mg/dl Calcium 9.0 (8.6-10.3) mg/dl Magnesium 1.9 (1.7-2.4) mg/dl Total Bilirubin 0.3 (0.2-1.0) mg/dl AST 21 (13-39) U/L ALT 24 (7-52) U/L Alkaline Phosphatase 45 (34-104) U/L Troponin I High Sens 3.7 (0-20) pg/ml Total Protein 6.6 (6.0-8.3) gm/dl Albumin 4.1 (3.4-5.0) gm/dl Globulin 2.5 (2.5-4.0) gm/dl Albumin/Globulin Ratio 1.6 (0.9-2) TSH 4.376 (0.300-4.500) uIu/ml Urine Color Yellow Urine Appearance Clear (Clear) Urine pH 7.0 (4.5-7.5) Ur Specific Henning 1.011 (1.000-1.030) Urine Protein Negative (Negative) Urine Glucose (UA) Negative (Negative) Urine Ketones Negative (Negative) Urine Blood Negative (Negative) Urine Nitrite Negative (Negative) Urine Bilirubin Negative (Negative) Urine Urobilinogen Negative (Negative) Ur Leukocyte Esterase Negative (Negative) Administered Medications Enoxaparin Sodium (Enoxaparin Inj 40 Mg/0.4 Ml Syr) 40 mg SQ Q24H MICHEL Stop: 06/04/24 05:59 Last Admin: 05/05/24 06:23 Dose: 40 mg Documented By: IDD Imaging Data Radiologist's Impression: Chest X-Ray 05/05/24 02:49 EXAM: XR chest 1V portable CLINICAL HISTORY: AMS. TECHNIQUE: X-ray image of the chest is obtained in AP portable projection. COMPARISON: This examination has been compared with prior x-ray dated 05/01/2024. FINDINGS: Pulmonary Parenchyma: No evidence of consolidation, or collapse. No evidence of pleural effusion or pleural thickening. Heart and Mediastinum: Heart size and shape are normal. No mediastinal widening or masses. No hilar or mediastinal lymphadenopathy. Rounded density projecting adjacent to the cardiac apex. Bilateral hilar vascular congestion was seen. Prominent bronchovascular markings are seen. Bony Thorax: The bony thorax appears intact without fractures or deformities. IMPRESSION: 1. Bilateral hilar vascular congestion. 2. Prominent bronchovascular markings are seen. 3. Redemonstration of rounded density in the vicinity of cardiac apex, likely vascular endon, less likely pulmonary nodule. 4. Unchanged study. Electronically signed by Rory Stoddard 05-05-2024 05:56 AM Discharge Plan Visit Data Chief Complaint: Altered Mental Status Stated Complaint: INCREASED CONFUSION, COMBATIVE ED Provider: Sada Lopez Discharge Problem: Neurocognitive disorder, Unable to care for self, Fecal incontinence Patient Disposition: Admitted As Inpatient Discharge Instructions Interventions: ED Discharge Assessment Last Done: 05/05/24 05:45 Discharge Problem: Fecal incontinence Qualifiers: Fecal incontinence type: unspecified Qualified Code(s): R15.9 - Full incontinence of feces
[2024-05-05 03:59] LABS: Thyroid Stimulating Hormone 4.376 uIu/ml (0.300-4.500)
[2024-05-05 05:25] LABS: Appearance Urine Clear (Clear); Bilirubin Urine Negative (Negative); Blood Urine Negative (Negative); Color Urine Yellow; Glucose Urine UA Negative (Negative); Ketones Urine Negative (Negative); Leukocyte Esterase Urine Negative (Negative); Nitrite Urine Negative (Negative); Protein Urine Negative (Negative); Specific Gravity Urine 1.011 (1.000-1.030); Urobilinogen Urine Negative (Negative)
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
[2024-05-05] MEDS ORDERED: LORazepam 2 MG/1 ML VIAL IV PRN (05:44)
[2024-05-05] MEDS ORDERED: NITROGLYCERIN SL 0.4 MG/TAB TAB SL PRN (05:44)
[2024-05-05] MEDS ORDERED: ACETAMINOPHEN 325 MG TAB PO PRN (05:44)
--- NOTE | 2024-05-05 05:57 | XRay Report ---
EXAM: XR chest 1V portable CLINICAL HISTORY: AMS. TECHNIQUE: X-ray image of the chest is obtained in AP portable projection. COMPARISON: This examination has been compared with prior x-ray dated 05/01/2024. FINDINGS: Pulmonary Parenchyma: No evidence of consolidation, or collapse. No evidence of pleural effusion or pleural thickening. Heart and Mediastinum: Heart size and shape are normal. No mediastinal widening or masses. No hilar or mediastinal lymphadenopathy. Rounded density projecting adjacent to the cardiac apex. Bilateral hilar vascular congestion was seen. Prominent bronchovascular markings are seen. Bony Thorax: The bony thorax appears intact without fractures or deformities. IMPRESSION: 1. Bilateral hilar vascular congestion. 2. Prominent bronchovascular markings are seen. 3. Redemonstration of rounded density in the vicinity of cardiac apex, likely vascular endon, less likely pulmonary nodule. 4. Unchanged study. Electronically signed by Rory Stoddard 05-05-2024 05:56 AM
[2024-05-05] MEDS: ENOXAPARIN INJ 40 MG/0.4 ML SYR SQ SCH (06:23)
--- NOTE | 2024-05-05 07:43 | CT Scan Report ---
EXAM: CT head/brain wo con CLINICAL HISTORY: Altered Mental Status. TECHNIQUE: An axial non-contrast CT scan of the brain was performed from the skull base to the high parietal region. One of the following dose-reduction techniques was utilized for this exam. Automated exposure control, adjustment of the mA and/or kV according to patient size, and use of iterative reconstruction. COMPARISON: 04/17/2024 CT Head. FINDINGS: Movements degrade the quality of the images obtained. The visualized brain parenchyma shows a normal appearance. No focal parenchymal abnormalities are demonstrated. Song-white matter differentiation is maintained. No midline shifts or deformity. No intracerebral or extra axial hematoma. Normal size and configuration of the cerebral ventricles. Normal CT appearance of the posterior fossa structures namely the cerebellar hemispheres, brainstem, and cerebellar peduncles. The osseous structures in the skull base are unremarkable. Age-proportionate involutional changes are seen as evident by the prominence of intra-and extra-axial CSF spaces. A few areas of hypodensities were noted in the bilateral periventricular region and subcortical deep white matter representing microvascular ischemic changes. No definite calvarium fractures. Mucous thickening in the right maxillary sinus and ethmoid cells. IMPRESSION: 1. No evidence of acute intracranial abnormality could be identified. 2. Mucous thickening in the right maxillary sinus and ethmoid cells. New finding. 3. Age-proportionate involutional changes with mild microvascular ischemic changes. 4. No significant change since the prior study. Electronically signed by Rory Stoddard 05-05-2024 07:42 AM
[2024-05-05] MEDS: THIAMINE HCL 100 MG TAB PO SCH (08:38)
[2024-05-05] MEDS: CYANOCOBALAMIN (B-12) 100 MCG TABLET PO SCH (08:38)
[2024-05-05] MEDS: ARIPiprazole 5 MG TAB PO SCH (08:38)
--- NOTE | 2024-05-05 13:11 | Psychiatric Consultation ---
Date of Consultation May 05, 2024 Impression / Recommendations Impression 64 y/o male h/o progressive dementia, alcohol dependence in remission, depression presents with AMS, fecal incontinence in the context of recently treated UTI (05/01/24). Psychiatry consulted for evaluation and recommendations. Concern for active depression given hypersomnia, loss of appetite, sad affect, suspicion for inc irritability, lack of engagement, h/o depression with past treatment. Collateral obtained from indicates patient needs support for most ADLs, h/o alcohol dependence and dementia, likely unable to meet patient's needs. Would benefit from placement or home healthcare. Recent behavioral disturbances. Labs reviewed: Hemoglobin 12.7; CMP, TSH, UA unremarkable; head CT shows microvascular ischemic changes; chest x-ray shows bilateral hilar vascular congestion; EKG with normal sinus rhythm and vital signs stable. Overall, I spent a total of 80 minutes with this case including review of chart records, nursing report, review of lab work, direct evaluation of the patient at bedside, counseling the patient, discussion of the patient with the hospitalist provider, discussion with the psychiatric liaison during clinical rounds, and documentation in the electronic health record. (1) Depression: Depression Type: unspecified Qualified Code(s): F32.A - Depression, unspecified (2) Delirium: (3) Dementia: (4) Fecal incontinence: Fecal incontinence type: unspecified Qualified Code(s): R15.9 - Full incontinence of feces (5) Unable to care for self: Plan Start Escitalopram 10mg daily Continue home Aripiprazole, Valproate, Mirtazapine For behavioral emergencies: Olanzapine 2.5mg to 5mg PO/IM Q8hr PRN, not to exceed 20mg/daily 1:1 sitter, delirium precautions Psych History Identifying Data 64 y/o male h/o progressive dementia, alcohol dependence in remission, depression presents with AMS, fecal incontinence in the context of recently treated UTI (05/01/24). Psychiatry consulted for evaluation and recommendations. Chief Complaint AMS History of Present Illness Chart review: Seen by er in 05/01/24 after brought pt in for fecal incontinence. At that time found to be oriented, started tx for UTI, d/c. Collateral from ([facility]): Patient came in with fecal and urinary incontinence. In the recent past patient has endorsed harm towards . History of dementia since 2021. Tobacco smoker since 10 years of age. Was a heavy drinker from 19 years of age to 60 years old with some sobriety periods. History of depression and in 2019 he took too many "nerve pills". 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 Patient has been adherent to medications. helps patient with meals, bathing, medications, dressing. They have been since 1986. Having troubles placing him. Patient sleeps a lot and ignores others often. Has not been eating. No recent antidepressant use. Patient has outpatient neurologist. Not sure what kind of dementia was diagnosed. No history of strokes. Working to get home health care. On interview patient is initially alert and reports "okay" mood. That he closes his eyes and does not answer any of my questions. Upon tapping his hand or trying to get his attention he continues to keep his eyes closed. Appears p urposeful. After I walked out of the room and he opens his eyes and appears alert. Floor nurse notes the patient has not been agitated this morning. helped walk him to the bathroom to urinate and he was incontinent over the floor. He has been ignoring people. Allergies Allergy/AdvReac Type Severity Reaction Status Date / Time No Known Allergies Allergy NONE Verified 04/17/24 16:48 Home Medications Medication Instructions Recorded Confirmed Type aripiprazole 10 mg tablet 10 mg PO HS 05/05/24 05/05/24 History aripiprazole 5 mg tablet 5 mg PO DAILY 05/05/24 05/05/24 History cyanocobalamin (vitamin B-12) 100 100 mcg PO DAILY 05/05/24 05/05/24 History mcg tablet divalproex 250 mg tablet,extended 250 mg PO HS 05/05/24 05/05/24 History release 24 hr mirtazapine 15 mg tablet 15 mg PO HS 05/05/24 05/05/24 History sulfamethoxazole 800 1 tab PO BID 05/05/24 05/05/24 History mg-trimethoprim 160 mg tablet thiamine HCl (vitamin B1) 100 mg 100 mg PO DAILY 05/05/24 05/05/24 History tablet Patient History Family History Other Family history non-contributory Social History Smoking Status: Unknown if ever smoked Tobacco Type: Cigarettes Cigarettes Per Day: 10; Second Hand Exposure: No; Do You Dip or Chew Tobacco: No; Hx Alcohol Use: No Hx Substance Use: No Preferred Language: Montenegrin Communication Ability: Effective 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 Beliefs That Will Affect Care: None marital status: Current Living Situation: Spouse current occupational status: employed Feels Safe at Home: Yes Safety Concerns: Feels Safe At This Time Assistive Devices: None Physical Exam Mental Examination: Appearance: Disheveled Eye Contact: No Eye Contact Motor Behavior: Unremarkable Speech: Nonverbal Mood: Euthymic Affect: Constricted and Sad Thought Process: Evasive Hallucinations: None Insight: Poor Judgement: Poor Vital Signs (Past 24 Hours): Last Vital Signs Temp 36.7 C 05/05/24 05:48 Pulse 71 05/05/24 08:00 Resp 16 05/05/24 08:00 BP 108/68 05/05/24 08:00 Pulse Ox 95 05/05/24 08:00 O2 Del Method Room Air 05/05/24 08:00 Results & Data (PSY) Medications Administered Aripiprazole (Aripiprazole 5 Mg Tab) 5 mg PO DAILY [facility] Stop: 06/04/24 08:59 Last Admin: 05/05/24 08:38 Dose: 5 mg Documented By: YURIY Cyanocobalamin (Cyanocobalamin (B-12) 100 Mcg Tablet) 100 mcg PO DAILY [facility] Stop: 06/04/24 08:59 Last Admin: 05/05/24 08:38 Dose: 100 mcg Documented By: YURIY Enoxaparin Sodium (Enoxaparin Inj 40 Mg/0.4 Ml Syr) 40 mg SQ Q24H [facility] Stop: 06/04/24 05:59 Last Admin: 05/05/24 06:23 Dose: 40 mg Documented By: IDD Thiamine HCl (Thiamine Hcl 100 Mg Tab) 100 mg PO DAILY [facility] Stop: 06/04/24 08:59 Last Admin: 05/05/24 08:38 Dose: 100 mg Documented By: YURIY Coding [place] [address] IN/OBS CONSULT LVL 5,80M Patient Type Established History Detailed Exam Detailed Medical Decision Making High Complexity Diagnoses Depression, unspecified depression type F32.A Depression Type: unspecified Delirium R41.0 Dementia F03.90 Fecal incontinence R15.9 Fecal incontinence type: unspecified Unable to care for self Z78.9
--- NOTE | 2024-05-05 15:57 | Communication Note ---
Date of Service: May 05, 2024 Evaluated Mr. Ragland in ED Patient requested rohan crackers and ice cream. States he has nothing wrong, when informed he is in the hospital he retorts "oh yeah" Patient denied any chest pain, abdominal discomfort, headache or other concerns Exam AO2, no focal neurologic deficit RRR CTAB UA negative 64-year-old male with past medical history significant for progressive dementia and neurocognitive disorder, history of alcohol abuse, history of polysubstance abuse, history of cognitive decline since 2019 was brought in from home because of agitation. Patient required sedation in field prior to presentation to [facility] ED. Patient without physical complaint at this time. #Agitation #Progressive dementia with neurocognitive disorder Unable to care for self Recurrent admissions Received IM Ativan total 4 mg and also ketamine 1:1 active Continued home medications Psych evaluated: recommends placement. Complex placement requiring case management support. #Stool incontinence Will follow stool studies #Recent UTI Patient was placed on Bactrim recently completed course, UA negative DVT prophylaxis Lovenox Disposition Med/telemetry
--- NOTE | 2024-05-05 16:20 | Electrocardiogram Report ---
Test Reason : Blood Pressure : */* mmHG Vent. Rate : 79 BPM Atrial Rate : 79 BPM P-R Int : 150 ms QRS Dur : 92 ms QT Int : 400 ms P-R-T Axes : 42 15 40 degrees QTcB Int : 458 ms Normal sinus rhythm Normal ECG When compared with ECG of 30-Apr-2024 23:54, Nonspecific T wave abnormality no longer evident in Lateral leads Confirmed by Magnus Tate ([id number] on 05/05/2024 4:20:32 PM Referred By: REFERRED SELF Confirmed By: Magnus Tate
[2024-05-05] MEDS: ARIPiprazole 10 MG TAB PO SCH (20:35)
[2024-05-05] MEDS: MIRTAZAPINE TAB 15 MG TAB PO SCH (20:36)
[2024-05-05] MEDS: DIVALPROEX EXTENDED RELEASE 250 MG TABCR PO SCH (20:36)
[2024-05-06 04:33] LABS: Basophils # (auto) 0.03 K/uL (0.00-0.20); Basophils % (auto) 0.5 %; Eosinophils # (auto) 0.14 K/uL (0.00-0.50); Eosinophils % (auto) 2.4 %; Hematocrit (blood only) 41.3 % (42.0-52.0); Hemoglobin 13.6 g/dl (14.0-18.0); Immature Granulocytes # (auto) 0.08 K/uL (0.01-0.20); Immature Granulocytes % (auto) 1.4 %; Lymphocytes # (auto) 2.09 K/uL (1.20-3.40); Mean Corpuscular Hemoglobin 29.6 pg (25.0-34.0); Mean Corpuscular Hgb Conc 32.9 g/dL (32.0-36.0); Mean Corpuscular Volume 89.8 fL (80.0-100.0); Mean Platelet Volume 9.7 fL (9.4-12.4); Monocytes # (auto) 0.45 K/uL (0.11-0.59); Monocytes % (auto) 7.7 %; Neutrophils # (auto) 3.02 K/uL (1.40-6.50); Platelet Count 214 K/uL (130-400); RDW Coefficient of Variation 13.8 % (11.5-14.5); RDW Standard Deviation 44.9 fL (36.4-46.3); White Blood Count 5.81 K/ul (4.8-10.8)
[2024-05-06 04:49] LABS: BUN Creatinine Ratio 10.2 (10-20); Bilirubin Direct 0.1 mg/dl (0-0.2); Bilirubin,Total 0.5 mg/dl (0.2-1.0); Calcium 8.9 mg/dl (8.6-10.3); Creatinine Clr Calc Pharmacy 67.3 ml/min; Magnesium 2.1 mg/dl (1.7-2.4); Potassium 4.3 mmol/L (3.5-5.1); Total Protein 7.2 gm/dl (6.0-8.3)
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
[2024-05-08 08:31] LABS: Creatinine Clr Calc Pharmacy 60.6 ml/min
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
[2024-05-08] MEDS: SODIUM CHLORIDE 0.9% 500 ML IV ONE (16:43)
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
[2024-05-11 05:19] LABS: Adenovirus F 40/41 PCR Not Detected (NotDetected); Astrovirus PCR Not Detected (NotDetected); Campylobacter PCR Not Detected (NotDetected); Cryptosporidium PCR Not Detected (NotDetected); Cyclospora cayetanensis PCR Not Detected (NotDetected); Entamoeba histolytica PCR Not Detected (NotDetected); Enteroaggregative E.coli(EAEC) Not Detected (NotDetected); Enteropathogenic E.coli (EPEC) Not Detected (NotDetected); Enterotoxigenic E.coli (ETEC) Not Detected (NotDetected); Giardia lamblia PCR Not Detected (NotDetected); Norovirus GI/GII PCR Not Detected (NotDetected); Plesiomonas shigelloides PCR Not Detected (NotDetected); Rotavirus A PCR Not Detected (NotDetected); Salmonella PCR Not Detected (NotDetected); Sapovirus PCR Not Detected (NotDetected); Shiga-like Toxin E.coli (STEC) Not Detected (NotDetected); Shigella/Enteroinvasive E.coli Not Detected (NotDetected); Vibrio cholerae PCR Not Detected (NotDetected); Vibrio species PCR Not Detected (NotDetected); Yersinia enterocolitica PCR Not Detected (NotDetected)
[2024-05-11 07:20] LABS: Creatinine Clr Calc Pharmacy 70.5 ml/min
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
[2024-05-12] MEDS: SODIUM CHLORIDE 0.9% 1,000 ML IV ONE (09:39)
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
[2024-05-13 05:50] LABS: Hemoglobin 13.1 g/dl (14.0-18.0); Mean Corpuscular Hemoglobin 29.9 pg (25.0-34.0); Mean Corpuscular Hgb Conc 33.6 g/dL (32.0-36.0); Mean Platelet Volume 9.8 fL (9.4-12.4); Platelet Count 218 K/uL (130-400); RDW Standard Deviation 42.8 fL (36.4-46.3); Red Blood Count 4.38 M/uL (4.70-6.10); White Blood Count 7.13 K/ul (4.8-10.8)
[2024-05-13 06:00] LABS: BUN Creatinine Ratio 15.2 (10-20); Calcium 8.8 mg/dl (8.6-10.3); Creatinine Clr Calc Pharmacy 64.9 ml/min; Potassium 4.1 mmol/L (3.5-5.1)
--- NOTE | 2024-05-13 10:04 | Hospitalist Progress Note ---
Date of Service May 13, 2024 Assessment & Plan (1) Agitation: Plan: Due to underlying major neurocognitive disorder, this has resolved, following recommendation by psychiatry, continue with Abilify 10 mg at night and 5 mg in the morning, continue Depakote 250 mg at night and Remeron 15 mg at night. Plan Patient is awaiting placement, follow the course with case management Admission and Anticipated Discharge Date Admission Date: May 05, 2024 Subjective Patient is clinically stable, denies having any symptoms, discussed with nursing staff, no issue overnight. Physical Exam Physical Exam: VITALS: Reviewed. WEIGHT/BMI reviewed. GEN: Healthy appearing, well-developed, NAD. CV: RRR, no m/r/g. LUNGS: CTAB, no w/r/c. Results & Data Results & Data Vital Signs (Past 12 Hours) Vital Signs Temp Pulse Pulse Pulse Resp BP BP 05/13/24 08:00 36.9 C 52 L 16 104/69 05/13/24 07:00 51 L 05/13/24 03:40 36.7 C 66 16 119/69 05/12/24 22:18 36.6 C 62 16 110/69 Pulse Ox O2 Del Method 05/13/24 08:00 91 Room Air 05/13/24 07:00 05/13/24 03:40 94 Room Air 05/12/24 22:18 92 Room Air Laboratory Results Laboratory Results - last 24 hr 05/13/24 05:05 WBC 7.13 RBC 4.38 L Hgb 13.1 L Hct 39.0 L MCV 89.0 MCH 29.9 MCHC 33.6 RDW Std Deviation 42.8 RDW Coeff of Bhavesh 13.0 Plt Count 218 MPV 9.8 Sodium 140 Potassium 4.1 Chloride 105 Carbon Dioxide 32 Anion Gap 3 BUN 17 Creatinine 1.12 Est Cr Clr Drug Dosing 64.9 eGFR 72.45 BUN/Creatinine Ratio 15.2 Glucose 95 Calcium 8.8 Medications Administered Current Inpatient Medications Acetaminophen (Acetaminophen 325 Mg Tab) 650 mg PO Q4H PRN PRN Reason: Pain or Fever Stop: 06/04/24 05:43 Aripiprazole (Aripiprazole 10 Mg Tab) 10 mg PO HS [facility] Stop: 06/04/24 20:59 Last Admin: 05/12/24 22:15 Dose: 10 mg Aripiprazole (Aripiprazole 5 Mg Tab) 5 mg PO DAILY [facility] Stop: 06/04/24 08:59 Last Admin: 05/13/24 07:26 Dose: 5 mg Cyanocobalamin (Cyanocobalamin (B-12) 100 Mcg Tablet) 100 mcg PO DAILY [facility] Stop: 06/04/24 08:59 Last Admin: 05/13/24 07:26 Dose: 100 mcg Divalproex Sodium (Divalproex Extended Release 250 Mg Tabcr) 250 mg PO HS [facility] Stop: 06/04/24 20:59 Last Admin: 05/12/24 22:16 Dose: 250 mg Enoxaparin Sodium (Enoxaparin Inj 40 Mg/0.4 Ml Syr) 40 mg SQ Q24H [facility] Stop: 06/04/24 05:59 Last Admin: 05/13/24 05:53 Dose: 40 mg Lorazepam (Lorazepam 2 Mg/1 Ml Vial) 0.5 mg IV Q8H PRN PRN Reason: Agitation Stop: 06/04/24 05:43 Mirtazapine (Mirtazapine Tab 15 Mg Tab) 15 mg PO HS [facility] Stop: 06/04/24 20:59 Last Admin: 05/12/24 22:16 Dose: 15 mg Nitroglycerin (Nitroglycerin Sl 0.4 Mg/Tab Tab) 0.4 mg SL Q5M PRN PRN Reason: Chest Pain Stop: 06/04/24 05:43 Thiamine HCl (Thiamine Hcl 100 Mg Tab) 100 mg PO DAILY [facility] Stop: 06/04/24 08:59 Last Admin: 05/13/24 07:26 Dose: 100 mg
--- NOTE | 2024-05-14 10:01 | Hospitalist Progress Note ---
Date of Service May 14, 2024 Assessment & Plan (1) Agitation: Plan: Due to underlying major neurocognitive disorder, this has resolved, following recommendation by psychiatry, continue with Abilify 10 mg at night and 5 mg in the morning, continue Depakote 250 mg at night and Remeron 15 mg at night, patient remains overall stable, no issue.. Plan Patient is awaiting placement, follow the course with case management. Admission and Anticipated Discharge Date Admission Date: May 05, 2024 Subjective Patient is clinically stable, denies having any symptoms, discussed with nursing staff, remained stable overnight, otherwise unremarkable. Physical Exam Physical Exam: VITALS: Reviewed. GEN: Healthy appearing, well-developed, NAD. CV: RRR, no m/r/g. LUNGS: CTAB, no w/r/c. Results & Data Results & Data Vital Signs (Past 12 Hours) Vital Signs Temp Pulse Pulse Resp BP Pulse Ox O2 Del Method 05/14/24 07:45 36.5 C 52 L 15 100/70 95 Room Air 05/14/24 06:50 60 05/14/24 02:57 36.9 C 68 16 108/70 94 Room Air 05/13/24 22:43 36.6 C 62 18 108/71 93 Room Air 05/13/24 22:14 61 Medications Administered Current Inpatient Medications Acetaminophen (Acetaminophen 325 Mg Tab) 650 mg PO Q4H PRN PRN Reason: Pain or Fever Stop: 06/04/24 05:43 Aripiprazole (Aripiprazole 10 Mg Tab) 10 mg PO HS [facility] Stop: 06/04/24 20:59 Last Admin: 05/13/24 21:15 Dose: 10 mg Aripiprazole (Aripiprazole 5 Mg Tab) 5 mg PO DAILY [facility] Stop: 06/04/24 08:59 Last Admin: 05/14/24 07:17 Dose: 5 mg Cyanocobalamin (Cyanocobalamin (B-12) 100 Mcg Tablet) 100 mcg PO DAILY [facility] Stop: 06/04/24 08:59 Last Admin: 05/14/24 07:17 Dose: 100 mcg Divalproex Sodium (Divalproex Extended Release 250 Mg Tabcr) 250 mg PO HS [facility] Stop: 06/04/24 20:59 Last Admin: 05/13/24 21:15 Dose: 250 mg Enoxaparin Sodium (Enoxaparin Inj 40 Mg/0.4 Ml Syr) 40 mg SQ Q24H [facility] Stop: 06/04/24 05:59 Last Admin: 05/14/24 05:38 Dose: 40 mg Lorazepam (Lorazepam 2 Mg/1 Ml Vial) 0.5 mg IV Q8H PRN PRN Reason: Agitation Stop: 06/04/24 05:43 Mirtazapine (Mirtazapine Tab 15 Mg Tab) 15 mg PO HS [facility] Stop: 06/04/24 20:59 Last Admin: 05/13/24 21:15 Dose: 15 mg Nitroglycerin (Nitroglycerin Sl 0.4 Mg/Tab Tab) 0.4 mg SL Q5M PRN PRN Reason: Chest Pain Stop: 06/04/24 05:43 Thiamine HCl (Thiamine Hcl 100 Mg Tab) 100 mg PO DAILY [facility] Stop: 06/04/24 08:59 Last Admin: 05/14/24 07:17 Dose: 100 mg
--- NOTE | 2024-05-15 09:53 | Hospitalist Progress Note ---
Date of Service May 15, 2024 Assessment & Plan (1) Agitation: Plan: Due to underlying major neurocognitive disorder, this has resolved, following recommendation by psychiatry, continue with Abilify 10 mg at night and 5 mg in the morning, continue Depakote 250 mg at night and Remeron 15 mg at night, patient remains overall stable, no issue.. Plan Discussed with case management, still there is no accepting facility. Admission and Anticipated Discharge Date Admission Date: May 05, 2024 Subjective Patient is clinically stable, denies having any symptoms, discussed with nursing staff, remained stable overnight, otherwise unremarkable. Physical Exam Physical Exam: VITALS: Reviewed. GEN: Healthy appearing, well-developed, NAD. CV: RRR, no m/r/g. LUNGS: CTAB, no w/r/c. Results & Data Results & Data Vital Signs (Past 12 Hours) Vital Signs Temp Pulse Pulse Resp BP Pulse Ox O2 Del Method 05/15/24 08:38 36.5 C 54 L 18 103/70 96 Room Air 05/15/24 07:15 52 L 05/15/24 07:00 Room Air 05/15/24 03:45 36.6 C 58 L 18 101/58 L 96 Room Air 05/14/24 23:11 36.7 C 60 18 108/64 94 Room Air 05/14/24 21:54 58 L
--- NOTE | 2024-05-16 09:50 | Hospitalist Progress Note ---
Date of Service May 16, 2024 Assessment & Plan (1) Agitation: Plan: Due to underlying major neurocognitive disorder, this has resolved, following recommendation by psychiatry, continue with Abilify 10 mg at night and 5 mg in the morning, continue Depakote 250 mg at night and Remeron 15 mg at night, patient remains overall stable, no issue.. Plan Discussed with case management, still there is no accepting facility. No update in his case. Admission and Anticipated Discharge Date Admission Date: May 05, 2024 Subjective Patient is clinically stable, denies having any symptoms, discussed with nursing staff, remained stable overnight, otherwise unremarkable. Physical Exam Physical Exam: VITALS: Reviewed. GEN: Healthy appearing, well-developed, NAD. CV: RRR, no m/r/g. LUNGS: CTAB, no w/r/c. Results & Data Results & Data Vital Signs (Past 12 Hours) Vital Signs Temp Pulse Pulse Resp BP Pulse Ox O2 Del Method 05/16/24 09:00 Room Air 05/16/24 08:09 36.4 C L 66 18 104/71 93 Room Air 05/16/24 07:00 59 L 05/16/24 03:55 36.8 C 62 14 111/75 94 Room Air 05/15/24 23:38 Room Air 05/15/24 23:37 67
--- NOTE | 2024-05-17 08:56 | Hospitalist Progress Note ---
Date of Service May 17, 2024 Assessment & Plan (1) Agitation: Plan: Due to underlying major neurocognitive disorder, this has resolved, following recommendation by psychiatry, continue with Abilify 10 mg at night and 5 mg in the morning, continue Depakote 250 mg at night and Remeron 15 mg at night, patient remains overall stable, no issue.. Plan Discussed with case management, still there is no accepting facility. No update in his case. Admission and Anticipated Discharge Date Admission Date: May 05, 2024 Subjective Patient is clinically stable, denies having any symptoms, discussed with nursing staff, remained stable overnight, otherwise unremarkable. Physical Exam Physical Exam: VITALS: Reviewed. GEN: Healthy appearing, well-developed, NAD. CV: RRR, no m/r/g. LUNGS: CTAB, no w/r/c. Results & Data Results & Data Vital Signs (Past 12 Hours) Vital Signs Temp Pulse Pulse Resp BP Pulse Ox O2 Del Method 05/17/24 08:10 36.5 C 60 18 110/73 96 Room Air 05/17/24 08:00 Room Air 05/17/24 07:00 53 L 05/17/24 03:09 36.4 C L 59 L 18 98/63 L 93 Room Air 05/17/24 00:44 67 05/16/24 23:14 Room Air 05/16/24 23:03 36.6 C 61 18 110/76 94 Room Air Medications Administered Current Inpatient Medications Acetaminophen (Acetaminophen 325 Mg Tab) 650 mg PO Q4H PRN PRN Reason: Pain or Fever Stop: 06/04/24 05:43 Aripiprazole (Aripiprazole 10 Mg Tab) 10 mg PO HS [facility] Stop: 06/04/24 20:59 Last Admin: 05/16/24 21:20 Dose: 10 mg Aripiprazole (Aripiprazole 5 Mg Tab) 5 mg PO DAILY [facility] Stop: 06/04/24 08:59 Last Admin: 05/17/24 07:44 Dose: 5 mg Cyanocobalamin (Cyanocobalamin (B-12) 100 Mcg Tablet) 100 mcg PO DAILY [facility] Stop: 06/04/24 08:59 Last Admin: 05/17/24 07:44 Dose: 100 mcg Divalproex Sodium (Divalproex Extended Release 250 Mg Tabcr) 250 mg PO HS [facility] Stop: 06/04/24 20:59 Last Admin: 05/16/24 21:20 Dose: 250 mg Enoxaparin Sodium (Enoxaparin Inj 40 Mg/0.4 Ml Syr) 40 mg SQ Q24H [facility] Stop: 06/04/24 05:59 Last Admin: 05/17/24 06:01 Dose: 40 mg Lorazepam (Lorazepam 2 Mg/1 Ml Vial) 0.5 mg IV Q8H PRN PRN Reason: Agitation Stop: 06/04/24 05:43 Mirtazapine (Mirtazapine Tab 15 Mg Tab) 15 mg PO HS [facility] Stop: 06/04/24 20:59 Last Admin: 05/16/24 21:20 Dose: 15 mg Nitroglycerin (Nitroglycerin Sl 0.4 Mg/Tab Tab) 0.4 mg SL Q5M PRN PRN Reason: Chest Pain Stop: 06/04/24 05:43 Thiamine HCl (Thiamine Hcl 100 Mg Tab) 100 mg PO DAILY [facility] Stop: 06/04/24 08:59 Last Admin: 05/17/24 07:44 Dose: 100 mg
[2024-05-17] MEDS: MICONAZOLE NITRATE POWDER 85 GM EXT PRN (15:39)
--- NOTE | 2024-05-18 08:24 | Hospitalist Progress Note ---
Date of Service May 18, 2024 Assessment & Plan (1) Agitation: Plan: Due to underlying major neurocognitive disorder, this has resolved, following recommendation by psychiatry, continue with Abilify 10 mg at night and 5 mg in the morning, continue Depakote 250 mg at night and Remeron 15 mg at night, patient remains overall stable, no issue.. Plan Still awaiting placement. No new development in the case. Admission and Anticipated Discharge Date Admission Date: May 05, 2024 Subjective Patient is clinically stable, denies having any symptoms, discussed with nursing staff, remained stable overnight, otherwise unremarkable. Physical Exam Physical Exam: VITALS: Reviewed. GEN: Healthy appearing, well-developed, NAD. Results & Data Results & Data Vital Signs (Past 12 Hours) Vital Signs Temp Pulse Pulse Resp BP Pulse Ox O2 Del Method 05/18/24 07:58 36.6 C 59 L 16 112/75 97 Room Air 05/18/24 07:17 57 L 05/18/24 03:42 37 C 56 L 14 98/61 L 94 Room Air 05/17/24 23:33 69 05/17/24 23:23 Room Air 05/17/24 23:07 36.6 C 59 L 18 101/69 93 Room Air 05/17/24 20:24 36.4 C L 69 18 107/70 94 Room Air Medications Administered Current Inpatient Medications Acetaminophen (Acetaminophen 325 Mg Tab) 650 mg PO Q4H PRN PRN Reason: Pain or Fever Stop: 06/04/24 05:43 Aripiprazole (Aripiprazole 10 Mg Tab) 10 mg PO HS [facility] Stop: 06/04/24 20:59 Last Admin: 05/17/24 19:33 Dose: 10 mg Aripiprazole (Aripiprazole 5 Mg Tab) 5 mg PO DAILY [facility] Stop: 06/04/24 08:59 Last Admin: 05/18/24 08:07 Dose: 5 mg Cyanocobalamin (Cyanocobalamin (B-12) 100 Mcg Tablet) 100 mcg PO DAILY [facility] Stop: 06/04/24 08:59 Last Admin: 05/18/24 08:07 Dose: 100 mcg Divalproex Sodium (Divalproex Extended Release 250 Mg Tabcr) 250 mg PO HS [facility] Stop: 06/04/24 20:59 Last Admin: 05/17/24 19:33 Dose: 250 mg Enoxaparin Sodium (Enoxaparin Inj 40 Mg/0.4 Ml Syr) 40 mg SQ Q24H [facility] Stop: 06/04/24 05:59 Last Admin: 05/18/24 05:54 Dose: 40 mg Lorazepam (Lorazepam 2 Mg/1 Ml Vial) 0.5 mg IV Q8H PRN PRN Reason: Agitation Stop: 06/04/24 05:43 Miconazole Nitrate (Miconazole Nitrate Powder 85 Gm) 1 appln EXT PRN PRN PRN Reason: Affected Skin Folds Stop: 06/16/24 13:23 Last Admin: 05/17/24 15:39 Dose: 1 appln Mirtazapine (Mirtazapine Tab 15 Mg Tab) 15 mg PO HS [facility] Stop: 06/04/24 20:59 Last Admin: 05/17/24 19:33 Dose: 15 mg Nitroglycerin (Nitroglycerin Sl 0.4 Mg/Tab Tab) 0.4 mg SL Q5M PRN PRN Reason: Chest Pain Stop: 06/04/24 05:43 Thiamine HCl (Thiamine Hcl 100 Mg Tab) 100 mg PO DAILY [facility] Stop: 06/04/24 08:59 Last Admin: 05/18/24 08:07 Dose: 100 mg
--- NOTE | 2024-05-19 09:12 | Hospitalist Progress Note ---
Date of Service May 19, 2024 Assessment & Plan (1) Agitation: Plan: Due to underlying major neurocognitive disorder, this has resolved, following recommendation by psychiatry, continue with Abilify 10 mg at night and 5 mg in the morning, continue Depakote 250 mg at night and Remeron 15 mg at night, patient remains overall stable, no issue.. Plan Still awaiting placement. No new development in the case. Admission and Anticipated Discharge Date Admission Date: May 05, 2024 Subjective Patient is clinically stable, denies having any symptoms, discussed with nursing staff, remained stable overnight, otherwise unremarkable. Physical Exam Physical Exam: VITALS: Reviewed. GEN: Healthy appearing, well-developed, NAD. Results & Data Results & Data Vital Signs (Past 12 Hours) Vital Signs Temp Pulse Pulse Resp BP BP Pulse Ox 05/19/24 08:13 05/19/24 08:00 36.6 C 50 L 18 111/74 96 05/19/24 03:32 36.5 C 53 L 16 115/75 96 05/18/24 23:03 58 L 05/18/24 22:53 05/18/24 22:32 36.8 C 61 16 104/68 92 O2 Del Method 05/19/24 08:13 Room Air 05/19/24 08:00 Room Air 05/19/24 03:32 Room Air 05/18/24 23:03 05/18/24 22:53 Room Air 05/18/24 22:32 Room Air
--- NOTE | 2024-05-20 08:53 | Hospitalist Progress Note ---
Date of Service May 20, 2024 Assessment & Plan (1) Agitation: Plan: Due to underlying major neurocognitive disorder, this has resolved, following recommendation by psychiatry, continue with Abilify 10 mg at night and 5 mg in the morning, continue Depakote 250 mg at night and Remeron 15 mg at night, patient remains overall stable, no issue.. Plan Still awaiting placement. No new development in the case. Admission and Anticipated Discharge Date Admission Date: May 05, 2024 Subjective Patient is clinically stable, denies having any symptoms, discussed with nursing staff, remained stable overnight, otherwise unremarkable. Physical Exam Physical Exam: VITALS: Reviewed. GEN: Healthy appearing, well-developed, NAD. Results & Data Results & Data Vital Signs (Past 12 Hours) Vital Signs Temp Pulse Pulse Resp BP Pulse Ox O2 Del Method 05/20/24 07:26 36.6 C 55 L 18 106/73 93 Room Air 05/20/24 07:19 Room Air 05/20/24 04:20 96/63 L 05/20/24 03:34 36.9 C 58 L 18 88/52 L 94 Room Air 05/19/24 23:49 36.9 C 58 L 18 103/68 90 Room Air 05/19/24 21:48 58 L 05/19/24 21:40 Room Air
--- NOTE | 2024-05-21 09:17 | Hospitalist Progress Note ---
Date of Service May 21, 2024 Assessment & Plan (1) Agitation: Plan: Due to underlying major neurocognitive disorder, this has resolved, following recommendation by psychiatry, continue with Abilify 10 mg at night and 5 mg in the morning, continue Depakote 250 mg at night and Remeron 15 mg at night, patient remains overall stable, no issue.. Plan Some paperwork was completed yesterday, still awaiting placement, no further update. Admission and Anticipated Discharge Date Admission Date: May 05, 2024 Subjective Patient is clinically stable, denies having any symptoms, discussed with nursing staff, remained stable overnight, otherwise unremarkable. Results & Data Results & Data Vital Signs (Past 12 Hours) Vital Signs Temp Pulse Pulse Resp BP Pulse Ox O2 Del Method 05/21/24 07:31 37.1 C 53 L 15 97/65 L 95 Room Air 05/21/24 05:31 55 L 05/21/24 03:18 36.7 C 55 L 18 90/55 L 96 Room Air 05/20/24 23:33 36.9 C 78 18 98/63 L 90 Room Air 05/20/24 21:40 56 L
--- NOTE | 2024-05-22 08:45 | Hospitalist Progress Note ---
Date of Service May 22, 2024 Assessment & Plan (1) Agitation: Plan: Due to underlying major neurocognitive disorder, this has resolved, following recommendation by psychiatry, continue with Abilify 10 mg at night and 5 mg in the morning, continue Depakote 250 mg at night and Remeron 15 mg at night, patient remains overall stable, no issue.. Plan No further update, awaiting placement. Admission and Anticipated Discharge Date Admission Date: May 05, 2024 Subjective Patient is clinically stable, denies having any symptoms, discussed with nursing staff, remained stable overnight, otherwise unremarkable. Results & Data Results & Data Vital Signs (Past 12 Hours) Vital Signs Temp Pulse Resp BP Pulse Ox O2 Del Method 05/22/24 07:14 36.7 C 56 L 12 104/70 95 Room Air 05/21/24 22:09 Room Air Medications Administered Current Inpatient Medications Acetaminophen (Acetaminophen 325 Mg Tab) 650 mg PO Q4H PRN PRN Reason: Pain or Fever Stop: 06/04/24 05:43 Aripiprazole (Aripiprazole 10 Mg Tab) 10 mg PO HS MICHEL Stop: 06/04/24 20:59 Last Admin: 05/21/24 20:09 Dose: 10 mg Aripiprazole (Aripiprazole 5 Mg Tab) 5 mg PO DAILY MICHEL Stop: 06/04/24 08:59 Last Admin: 05/21/24 08:37 Dose: 5 mg Cyanocobalamin (Cyanocobalamin (B-12) 100 Mcg Tablet) 100 mcg PO DAILY MICHEL Stop: 06/04/24 08:59 Last Admin: 05/21/24 08:37 Dose: 100 mcg Divalproex Sodium (Divalproex Extended Release 250 Mg Tabcr) 250 mg PO HS MICHEL Stop: 06/04/24 20:59 Last Admin: 05/21/24 20:09 Dose: 250 mg Enoxaparin Sodium (Enoxaparin Inj 40 Mg/0.4 Ml Syr) 40 mg SQ Q24H MICHEL Stop: 06/04/24 05:59 Last Admin: 05/22/24 05:22 Dose: 40 mg Lorazepam (Lorazepam 2 Mg/1 Ml Vial) 0.5 mg IV Q8H PRN PRN Reason: Agitation Stop: 06/04/24 05:43 Miconazole Nitrate (Miconazole Nitrate Powder 85 Gm) 1 appln EXT PRN PRN PRN Reason: Affected Skin Folds Stop: 06/16/24 13:23 Last Admin: 05/17/24 15:39 Dose: 1 appln Mirtazapine (Mirtazapine Tab 15 Mg Tab) 15 mg PO HS [facility] Stop: 06/04/24 20:59 Last Admin: 05/21/24 20:09 Dose: 15 mg Nitroglycerin (Nitroglycerin Sl 0.4 Mg/Tab Tab) 0.4 mg SL Q5M PRN PRN Reason: Chest Pain Stop: 06/04/24 05:43 Thiamine HCl (Thiamine Hcl 100 Mg Tab) 100 mg PO DAILY [facility] Stop: 06/04/24 08:59 Last Admin: 05/21/24 08:37 Dose: 100 mg
--- NOTE | 2024-05-23 08:29 | Hospitalist Progress Note ---
Date of Service May 23, 2024 Assessment & Plan (1) Agitation: Plan: Due to underlying major neurocognitive disorder, this has resolved, following recommendation by psychiatry, continue with Abilify 10 mg at night and 5 mg in the morning, continue Depakote 250 mg at night and Remeron 15 mg at night, patient remains overall stable, no issue.. Plan No further update, awaiting placement. Admission and Anticipated Discharge Date Admission Date: May 05, 2024 Subjective Patient is clinically stable, denies having any symptoms, discussed with nursing staff, remained stable overnight, otherwise unremarkable. He has been moved to a different room. Results & Data Results & Data Vital Signs (Past 12 Hours) Vital Signs Temp Pulse Resp BP BP Pulse Ox O2 Del Method 05/23/24 07:48 36.5 C 53 L 18 113/75 96 Room Air 05/22/24 23:51 36.4 C L 56 L 18 124/81 95 Room Air 05/22/24 23:06 Room Air Medications Administered Current Inpatient Medications Acetaminophen (Acetaminophen 325 Mg Tab) 650 mg PO Q4H PRN PRN Reason: Pain or Fever Stop: 06/04/24 05:43 Aripiprazole (Aripiprazole 10 Mg Tab) 10 mg PO HS MICHEL Stop: 06/04/24 20:59 Last Admin: 05/22/24 20:02 Dose: 10 mg Aripiprazole (Aripiprazole 5 Mg Tab) 5 mg PO DAILY [facility] Stop: 06/04/24 08:59 Last Admin: 05/22/24 08:56 Dose: 5 mg Cyanocobalamin (Cyanocobalamin (B-12) 100 Mcg Tablet) 100 mcg PO DAILY [facility] Stop: 06/04/24 08:59 Last Admin: 05/22/24 08:56 Dose: 100 mcg Divalproex Sodium (Divalproex Extended Release 250 Mg Tabcr) 250 mg PO HS [facility] Stop: 06/04/24 20:59 Last Admin: 05/22/24 20:01 Dose: 250 mg Enoxaparin Sodium (Enoxaparin Inj 40 Mg/0.4 Ml Syr) 40 mg SQ Q24H [facility]HEL Stop: 06/04/24 05:59 Last Admin: 05/23/24 06:16 Dose: 40 mg Lorazepam (Lorazepam 2 Mg/1 Ml Vial) 0.5 mg IV Q8H PRN PRN Reason: Agitation Stop: 06/04/24 05:43 Miconazole Nitrate (Miconazole Nitrate Powder 85 Gm) 1 appln EXT PRN PRN PRN Reason: Affected Skin Folds Stop: 06/16/24 13:23 Last Admin: 05/17/24 15:39 Dose: 1 appln Mirtazapine (Mirtazapine Tab 15 Mg Tab) 15 mg PO [facility] Stop: 06/04/24 20:59 Last Admin: 05/22/24 20:02 Dose: 15 mg Nitroglycerin (Nitroglycerin Sl 0.4 Mg/Tab Tab) 0.4 mg SL Q5M PRN PRN Reason: Chest Pain Stop: 06/04/24 05:43 Thiamine HCl (Thiamine Hcl 100 Mg Tab) 100 mg PO DAILY [facility] Stop: 06/04/24 08:59 Last Admin: 05/22/24 08:56 Dose: 100 mg
--- NOTE | 2024-05-24 08:48 | Hospitalist Progress Note ---
Date of Service May 24, 2024 Assessment & Plan (1) Agitation: Plan: Due to underlying major neurocognitive disorder, this has resolved, following recommendation by psychiatry, continue with Abilify 10 mg at night and 5 mg in the morning, continue Depakote 250 mg at night and Remeron 15 mg at night, patient remains overall stable, no issue.. Plan No further update, awaiting placement. Admission and Anticipated Discharge Date Admission Date: May 05, 2024 Subjective Patient is clinically stable, denies having any symptoms, discussed with nursing staff, remained stable overnight, otherwise unremarkable. He has been moved to a different room. Physical Exam Physical Exam: VITALS: Reviewed. GEN: Healthy appearing, well-developed, NAD. Results & Data Results & Data Vital Signs (Past 12 Hours) Vital Signs Temp Pulse Resp BP Pulse Ox O2 Del Method 05/24/24 06:52 36.5 C 54 L 16 120/81 98 Room Air 05/23/24 20:52 36.4 C L 59 L 14 107/67 97 Room Air
--- NOTE | 2024-05-25 08:41 | Hospitalist Progress Note ---
Date of Service May 25, 2024 Assessment & Plan (1) Agitation: Plan: Due to underlying major neurocognitive disorder, this has resolved, following recommendation by psychiatry, continue with Abilify 10 mg at night and 5 mg in the morning, continue Depakote 250 mg at night and Remeron 15 mg at night, patient remains overall stable, no issue.. Plan Still there is no development indication. Admission and Anticipated Discharge Date Admission Date: May 05, 2024 Subjective Patient is clinically stable, denies having any symptoms, discussed with nursing staff, remained stable overnight, otherwise unremarkable. He has been moved to a different room. Physical Exam Physical Exam: VITALS: Reviewed. GEN: Healthy appearing, well-developed, NAD. Results & Data Results & Data Vital Signs (Past 12 Hours) Vital Signs Temp Pulse Resp BP Pulse Ox O2 Del Method 05/25/24 07:35 36.4 C L 52 L 18 112/75 95 Room Air
--- NOTE | 2024-05-26 08:20 | Hospitalist Progress Note ---
Date of Service May 26, 2024 Assessment & Plan (1) Agitation: Plan: Due to underlying major neurocognitive disorder, this has resolved, following recommendation by psychiatry, continue with Abilify 10 mg at night and 5 mg in the morning, continue Depakote 250 mg at night and Remeron 15 mg at night, patient remains overall stable, no issue.. Plan Still awaiting placement. Admission and Anticipated Discharge Date Admission Date: May 05, 2024 Subjective Patient is clinically stable, denies having any symptoms, discussed with nursing staff, remained stable overnight, otherwise unremarkable. He has been moved to a different room. Physical Exam Physical Exam: VITALS: Reviewed. GEN: Healthy appearing, well-developed, NAD. Results & Data Results & Data Vital Signs (Past 12 Hours) Vital Signs Temp Pulse Resp BP Pulse Ox O2 Del Method 05/26/24 07:35 36.7 C 51 L 16 105/71 97 Room Air
--- NOTE | 2024-05-27 16:43 | Hospitalist Progress Note ---
Date of Service May 27, 2024 Assessment & Plan (1) Agitation: Plan: -Due to underlying major neurocognitive disorder, this has resolved -nonagitated, stable on examination today Plan: -following recommendation by psychiatry, continue with Abilify 10 mg at night and 5 mg in the morning, continue Depakote 250 mg at night and Remeron 15 mg at night, patient remains overall stable Plan awaiting placement I spent a total of 40 minutes coordinating, documenting, and providing care for this patient excluding time spent in the performance of separately billed services. Admission and Anticipated Discharge Date Admission Date: May 05, 2024 Subjective Patient seen and examined at bedside. Patient continues to be stable from a clinical perspective, awaiting disposition. patient denies any new concerns today. Review of Systems Review of Systems: CONSTITUTIONAL: Patient denies fevers, chills, sweats and weight changes. EYES: Patient denies any visual symptoms. EARS, NOSE, AND THROAT: No difficulties with hearing. No symptoms of rhinitis or sore throat. CARDIOVASCULAR: Patient denies chest pains, palpitations, orthopnea and paroxysmal nocturnal dyspnea. RESPIRATORY: No dyspnea on exertion, no wheezing or cough. GI: No nausea, vomiting, diarrhea, constipation, abdominal pain, hematochezia or melena. : No urinary hesitancy or dribbling. No nocturia or urinary frequency. No abnormal urethral discharge. MUSCULOSKELETAL: No myalgias or arthralgias. NEUROLOGIC: No chronic headaches, no seizures. Patient denies numbness, tingling or weakness. PSYCHIATRIC: Patient denies problems with mood disturbance. No problems with anxiety. ENDOCRINE: No excessive urination or excessive thirst. DERMATOLOGIC: Patient denies any rashes or skin changes. Physical Exam Physical Exam: Gen: A&O 2-3 NAD HEENT: NCAT, EOMI, not icteric. External ears normal. No rhinorrhea. Moist mucous membranes. Neck: Supple, full range of motion, no observable masses, No meningeal sign. Lungs: No Respiratory distress. CV: RRR, no edema. Abdomen: Soft, nondistended, No rebound tenderness. MSK: No joint swelling, no redness. Skin: No rashes, petechiae, lesions. Normal color per patient. Neuro: Normal Gait, Grossly intact. Psych: not agitated at this time, short in conversation Results & Data Results & Data Vital Signs (Past 12 Hours) Vital Signs Temp Pulse Resp BP Pulse Ox O2 Del Method 05/27/24 14:39 36.6 C 56 L 18 116/69 97 Room Air 05/27/24 07:04 36.6 C 60 16 110/72 97 Room Air Laboratory Results Laboratory Results WBC 7.13 K/ul (4.8-10.8) 05/13/24 05:05 RBC 4.38 M/uL (4.70-6.10) L 05/13/24 05:05 Hgb 13.1 g/dl (14.0-18.0) L 05/13/24 05:05 Hct 39.0 % (42.0-52.0) L 05/13/24 05:05 MCV 89.0 fL (80.0-100.0) 05/13/24 05:05 MCH 29.9 pg (25.0-34.0) 05/13/24 05:05 MCHC 33.6 g/dL (32.0-36.0) 05/13/24 05:05 RDW Std Deviation 42.8 fL (36.4-46.3) 05/13/24 05:05 RDW Coeff of Bhavesh 13.0 % (11.5-14.5) 05/13/24 05:05 Plt Count 218 K/uL (130-400) 05/13/24 05:05 MPV 9.8 fL (9.4-12.4) 05/13/24 05:05 Immature Gran % (Auto) 1.4 % 05/06/24 04:08 Neut % (Auto) 52.0 % 05/06/24 04:08 Lymph % (Auto) 36.0 % 05/06/24 04:08 [place] % (Auto) 7.7 % 05/06/24 04:08 Eos % (Auto) 2.4 % 05/06/24 04:08 Baso % (Auto) 0.5 % 05/06/24 04:08 Neut # (Auto) 3.02 K/uL (1.40-6.50) 05/06/24 04:08 Lymph # (Auto) 2.09 K/uL (1.20-3.40) 05/06/24 04:08 [place] # (Auto) 0.45 K/uL (0.11-0.59) 05/06/24 04:08 Eos # (Auto) 0.14 K/uL (0.00-0.50) 05/06/24 04:08 Baso # (Auto) 0.03 K/uL (0.00-0.20) 05/06/24 04:08 Immature Gran # (Auto) 0.08 K/uL (0.01-0.20) 05/06/24 04:08 Sodium 140 mmol/L (136-145) 05/13/24 05:05 Potassium 4.1 mmol/L (3.5-5.1) 05/13/24 05:05 Chloride 105 mmol/L (98-107) 05/13/24 05:05 Carbon Dioxide 32 mmol/L (21-32) 05/13/24 05:05 Anion Gap 3 (3-11) 05/13/24 05:05 BUN 17 mg/dl (6-23) 05/13/24 05:05 Creatinine 1.12 mg/dl (0.6-1.4) 05/13/24 05:05 Est Cr Clr Drug Dosing 64.9 ml/min 05/13/24 05:05 eGFR 72.45 05/13/24 05:05 BUN/Creatinine Ratio 15.2 (10-20) 05/13/24 05:05 Glucose 95 mg/dl (70-99(Fasting)) 05/13/24 05:05 Calcium 8.8 mg/dl (8.6-10.3) 05/13/24 05:05 Phosphorus 3.0 mg/dl (2.5-4.9) 05/06/24 04:08 Magnesium 2.1 mg/dl (1.7-2.4) 05/06/24 04:08 Total Bilirubin 0.5 mg/dl (0.2-1.0) 05/06/24 04:08 Direct Bilirubin 0.1 mg/dl (0-0.2) 05/06/24 04:08 AST 48 U/L (13-39) H 05/06/24 04:08 ALT 48 U/L (7-52) 05/06/24 04:08 Alkaline Phosphatase 48 U/L (34-104) 05/06/24 04:08 Troponin I High Sens 3.7 pg/ml (0-20) 05/05/24 03:10 Total Protein 7.2 gm/dl (6.0-8.3) 05/06/24 04:08 Albumin 4.0 gm/dl (3.4-5.0) 05/06/24 04:08 Globulin 2.5 gm/dl (2.5-4.0) 05/05/24 03:10 Albumin/Globulin Ratio 1.6 (0.9-2) 05/05/24 03:10 TSH 4.376 uIu/ml (0.300-4.500) 05/05/24 03:10 Urine Color Yellow 05/05/24 04:58 Urine Appearance Clear (Clear) 05/05/24 04:58 Urine pH 7.0 (4.5-7.5) 05/05/24 04:58 Ur Specific [place] 1.011 (1.000-1.030) 05/05/24 04:58 Urine Protein Negative (Negative) 05/05/24 04:58 Urine Glucose (UA) Negative (Negative) 05/05/24 04:58 Urine Ketones Negative (Negative) 05/05/24 04:58 Urine Blood Negative (Negative) 05/05/24 04:58 Urine Nitrite Negative (Negative) 05/05/24 04:58 Urine Bilirubin Negative (Negative) 05/05/24 04:58 Urine Urobilinogen Negative (Negative) 05/05/24 04:58 Ur Leukocyte Esterase Negative (Negative) 05/05/24 04:58 Stl C. cayetanensis PCR Not Detected (NotDetected) 05/11/24 03:52 Stool Rotavirus A PCR Not Detected (NotDetected) 05/11/24 03:52 Stl Adenov F 40/41 PCR Not Detected (NotDetected) 05/11/24 03:52 Stool Astrovirus (PCR) Not Detected (NotDetected) 05/11/24 03:52 Stool Campylobacter PCR Not Detected (NotDetected) 05/11/24 03:52 Stool Cryptosporidium PCR Not Detected (NotDetected) 05/11/24 03:52 Stl E.coli Shiga Tox PCR Not Detected (NotDetected) 05/11/24 03:52 Stl Enterotoxigenic E PCR Not Detected (NotDetected) 05/11/24 03:52 Stool EPEC (PCR) Not Detected (NotDetected) 05/11/24 03:52 Stool EAEC (PCR) Not Detected (NotDetected) 05/11/24 03:52 Stl E. histolytica PCR Not Detected (NotDetected) 05/11/24 03:52 Stool Giardia Lamblia PCR Not Detected (NotDetected) 05/11/24 03:52 Stool Salmonella PCR Not Detected (NotDetected) 05/11/24 03:52 Stool Sapovirus (PCR) Not Detected (NotDetected) 05/11/24 03:52 Stl P. shigelloides PCR Not Detected (NotDetected) 05/11/24 03:52 Stl Shigella/EIEC PCR Not Detected (NotDetected) 05/11/24 03:52 St Y.enterocolitica PCR Not Detected (NotDetected) 05/11/24 03:52 Stool Vibrio (PCR) Not Detected (NotDetected) 05/11/24 03:52 Stl Vibrio cholerae PCR Not Detected (NotDetected) 05/11/24 03:52 Stl Norovirus GI/GII PCR Not Detected (NotDetected) 05/11/24 03:52 Impressions Chest X-Ray 05/05/24 02:49 EXAM: XR chest 1V portable CLINICAL HISTORY: AMS. TECHNIQUE: X-ray image of the chest is obtained in AP portable projection. COMPARISON: This examination has been compared with prior x-ray dated 05/01/2024. FINDINGS: Pulmonary Parenchyma: No evidence of consolidation, or collapse. No evidence of pleural effusion or pleural thickening. Heart and Mediastinum: Heart size and shape are normal. No mediastinal widening or masses. No hilar or mediastinal lymphadenopathy. Rounded density projecting adjacent to the cardiac apex. Bilateral hilar vascular congestion was seen. Prominent bronchovascular markings are seen. Bony Thorax: The bony thorax appears intact without fractures or deformities. IMPRESSION: 1. Bilateral hilar vascular congestion. 2. Prominent bronchovascular markings are seen. 3. Redemonstration of rounded density in the vicinity of cardiac apex, likely vascular endon, less likely pulmonary nodule. 4. Unchanged study. Electronically signed by Rory Stoddard 05-05-2024 05:[address] 05/05/24 05:53 EXAM: CT head/brain wo con CLINICAL HISTORY: Altered Mental Status. TECHNIQUE: An axial non-contrast CT scan of the brain was performed from the skull base to the high parietal region. One of the following dose-reduction techniques was utilized for this exam. Automated exposure control, adjustment of the mA and/or kV according to patient size, and use of iterative reconstruction. COMPARISON: 04/17/2024 CT Head. FINDINGS: Movements degrade the quality of the images obtained. The visualized brain parenchyma shows a normal appearance. No focal parenchymal abnormalities are demonstrated. Song-white matter differentiation is maintained. No midline shifts or deformity. No intracerebral or extra axial hematoma. Normal size and configuration of the cerebral ventricles. Normal CT appearance of the posterior fossa structures namely the cerebellar hemispheres, brainstem, and cerebellar peduncles. The osseous structures in the skull base are unremarkable. Age-proportionate involutional changes are seen as evident by the prominence of intra-and extra-axial CSF spaces. A few areas of hypodensities were noted in the bilateral periventricular region and subcortical deep white matter representing microvascular ischemic changes. No definite calvarium fractures. Mucous thickening in the right maxillary sinus and ethmoid cells. IMPRESSION: 1. No evidence of acute intracranial abnormality could be identified. 2. Mucous thickening in the right maxillary sinus and ethmoid cells. New finding. 3. Age-proportionate involutional changes with mild microvascular ischemic changes. 4. No significant change since the prior study. Electronically signed by Rory Stoddard 05-05-2024 07:42 AM
[2024-05-28 10:05] LABS: Potassium 4.1 mmol/L (3.5-5.1)
[2024-05-28 10:06] LABS: BUN Creatinine Ratio 17.5 (10-20); Creatinine Clr Calc Pharmacy 74.9 ml/min
--- NOTE | 2024-05-28 15:20 | Hospitalist Progress Note ---
Date of Service May 28, 2024 Assessment & Plan (1) Agitation: Plan: -Due to underlying major neurocognitive disorder, this has resolved -nonagitated, stable on examination today Plan: -following recommendation by psychiatry, continue with Abilify 10 mg at night and 5 mg in the morning, continue Depakote 250 mg at night and Remeron 15 mg at night, patient remains overall stable Plan awaiting placement I spent a total of 35 minutes coordinating, documenting, and providing care for this patient excluding time spent in the performance of separately billed services. Admission and Anticipated Discharge Date Admission Date: May 05, 2024 Subjective Patient seen and examined at bedside. Patient was not talkative this morning but did not appear agitated. States he feels fine. No acute events overnight. Discussed case with case management, patient's care needs are difficult and will be having further discussions with in regards to next steps Review of Systems Review of Systems: CONSTITUTIONAL: Patient denies fevers, chills, sweats and weight changes. EYES: Patient denies any visual symptoms. EARS, NOSE, AND THROAT: No difficulties with hearing. No symptoms of rhinitis or sore throat. CARDIOVASCULAR: Patient denies chest pains, palpitations, orthopnea and paroxysmal nocturnal dyspnea. RESPIRATORY: No dyspnea on exertion, no wheezing or cough. GI: No nausea, vomiting, diarrhea, constipation, abdominal pain, hematochezia or melena. : No urinary hesitancy or dribbling. No nocturia or urinary frequency. No abnormal urethral discharge. MUSCULOSKELETAL: No myalgias or arthralgias. NEUROLOGIC: No chronic headaches, no seizures. Patient denies numbness, tingling or weakness. PSYCHIATRIC: Patient denies problems with mood disturbance. No problems with an xiety. ENDOCRINE: No excessive urination or excessive thirst. DERMATOLOGIC: Patient denies any rashes or skin changes. Physical Exam Physical Exam: Gen: A&O 2-3 NAD HEENT: NCAT, EOMI, not icteric. External ears normal. No rhinorrhea. Moist mucous membranes. Neck: Supple, full range of motion, no observable masses, No meningeal sign. Lungs: No Respiratory distress. CV: RRR, no edema. Abdomen: Soft, nondistended, No rebound tenderness. MSK: No joint swelling, no redness. Skin: No rashes, petechiae, lesions. Normal color per patient. Neuro: Normal Gait, Grossly intact. Psych: not agitated at this time, short in conversation Results & Data Results & Data Vital Signs (Past 12 Hours) Vital Signs Temp Pulse Resp BP Pulse Ox O2 Del Method 05/28/24 07:08 36.3 C L 60 16 100/65 94 Room Air
[2024-05-29 07:05] VITALS: BP 110/73; PULSE 56; RESP 16; TEMP 98.1; O2SAT 93
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
== END 2024-05-29 16:09 | disposition home or self-care (01) | DRG 884 ==
LOC: ED 02:41 → EDINP 05:09 → SUATTDRO 05:09 → 2W 05-06 05:45 → 3E 05-22 23:49